=== PATIENT | female | born 1955 | race Caucasian/White ===

== ENCOUNTER → 2023-06-13 12:13 | Outpatient (REF) | payer MEDICARE, SELFPAY | LOC: WDC 12:13 | PROVIDERS: ATTENDING PHYSICIAN Family Medicine | DX: Z12.31 Encounter for screening mammogram for malignant neoplasm of breast (principal) | CPT/HCPCS: 77063; 77067 ==

== ENCOUNTER 2023-07-21 22:41 | Inpatient (IN) | payer MEDICARE, SELFPAY ==
[2023-07-21] VITALS (46 sets, daily range): BP systolic 83–170; BP diastolic 63–135
[2023-07-21] MEDS: DUONEB 3 ML INH (19:45)
[2023-07-21] MEDS: DIPRIVAN 100 IV (20:00)
[2023-07-21] MEDS: VERSED 2 MG IV (20:00)
--- NOTE | 2023-07-21 20:00 | ED.GENMED ---
History of Present Illness
<Fredi Dixon, DO - Last Filed: 07/21/23 22:42>
General
Chief Complaint: Breathing Problem
Source: patient and records
Exam Limitations: altered mental status
Time Seen by Provider: 07/21/23 19:39
Nursing documentation reviewed up to this point in time: agreed with
Travel History
Have you had any contact with someone who has COVID-19?: No
Do you have any symptoms of coronavirus? Fever > 100 degrees, chills, cough, shortness of breath, sore throat, loss of taste or smell, muscle aches, or headache?: No
History of Present Illness
History of Present Illness:
Patient presented to triage acutely short of breath
Brought back immediately initial vital signs she was tachypneic tachycardic hypoxic agitated in extremis, placed on a DuoNeb for some wheezing, apparently she was a smoker tells me she is not currently smoking
Prior records were able to briefly be reviewed she has had bladder cancer, she had vascular surgery to her radial artery she was then subsequently intubated placed on a ventilator
Other history is limited at this time
Past History
<Fredi Dixon, DO - Last Filed: 07/21/23 22:42>
Past History
ED Past Medical History: Arrthythmia (A fib), Cancer (Lung CA), HTN and Hypercholesterolemia
ED Past Surgical History: Appendectomy, Cardiac (Stent), (X 2) and Other (Bilateral upper lung lobectomy)
Social History
Tobacco: Non-smoker
Alcohol: None
Drug: Marijuana
Personal:
Living: alone
Review of Systems
<Fredi Dixon, DO - Last Filed: 07/21/23 22:42>
Review of Systems
Unable to obtain full review of systems at this time due to: due to acuity
All Other Systems: Not applicable
Respiratory: Reports cough and trouble breathing
Phy Exam
<Fredi Dixon, DO - Last Filed: 07/21/23 22:42>
Physical Exam
Physical Exam:
Physical Exam
General: 68-year-old female in severe respiratory distress tripoding sweating completing one-word sentences pulling at oxygen mask
Neck: No tongue bite
Heart: Tachycardic
Lungs: Tachypneic with wheezing diminished breath sounds
Abdomen: Nontender
Neuro: Agitated moving all extremity
Skin: no rash
Psychiatric: Unable to fully assess
Extremities: Trace lower extremity edema
Scores
<Fredi Dixon, DO - Last Filed: 07/21/23 22:42>
Heart Failure Risk
Heart Failure Risk Score: Not Applicable
Course
<Fredi Dixon, DO - Last Filed: 07/21/23 22:42>
Orders/Labs/Results
Orders:
Orders
07/21/23 19:28
EKG [Electrocardiogram (*1)] Urgent
Reason for Study: Shortness of Breath
07/21/23 19:29
EKG- Treatment ONCE
07/21/23 19:39
Ipratropium/Albuterol Sulfate [Duoneb] 3 ml .ROUTE .STK-MED ONE
07/21/23 19:43
Cardiac Monitoring- Treatment ONCE
CXR Port [CR Chest Portable - 1 View] Urgent
Comment:
Reason For Exam: sob
Reason Study Needs to be Portable: Unable to Transport
07/21/23 19:45
Ipratropium/Albuterol Sulfate [Duoneb] 3 ml INH R NOW ONE
07/21/23 19:49
Midazolam HCl [Versed] 2 mg .ROUTE .STK-MED ONE
07/21/23 19:56
Etomidate [Amidate 20 mg] 20 mg IV NOW STA
Succinylcholine Chloride [Anectine] 150 mg IV NOW STA
07/21/23 19:57
Midazolam HCl [Versed] 2 mg IV NOW STA
Propofol 1,000,000 Mcg/100 ml [Diprivan] 1,000,000 mcg in 100 ml .ROUTE .STK-MED
Propofol 1,000,000 Mcg/100 ml [Diprivan] 1,000,000 mcg in 100 ml IV NOW
Indication:: Light Sedation
Begin Infusion:: Now
Goal:: RASS 0 to -2
Maximum dose in mcg/kg/min:: 50
Initial dose based on RASS:: Yes
If RASS is:: +1 or pt hemodynamically unstable (SBP < 90mmHg), initiate at 10 mcg/kg/min
If RASS is:: +2, initiate at 20 mcg/kg/min
If RASS is:: greater than or equal to +3, initiate at 30 mcg/kg/min
Titration Instructions:: Titrate by 5-10 mcg/kg/min every 5 minutes until RASS 0 to -2 achieved.
Taper Instructions:: If RASS is at or below goal for 4 consecutive hours decrease infusion by
Taper Instructions:: 5-10 mcg/kg/min every 2 hours to off.
Over-sedation Instructions:: If CPOT 0-2 (at goal) AND RASS -3 to -5 (below goal) decrease sedative by
Over-sedation Instructions:: 50% first. If pain score remains at goal and RASS remains below goal in
Over-sedation Instructions:: 1 hour, decrease opioid infusion by 50%.
Notify provider:: immediately if patient exhibits signs/symptoms of propofol-related
Notify provider:: infusion syndrome.
Additional Instructions:: Patient MUST be mechanically ventilated and MUST receive analgesia.
07/21/23 19:58
CMP [Comprehensive Metabolic Panel] Urgent
Complete Blood Count/With Diff Urgent
Manual Differential Urgent
Pro-BNP [NT-proBNP] Urgent
Triglycerides Routine
Comment: baseline levels with propofol infusion
Troponin I Urgent
Comment: ADD ON
07/21/23 20:26
CefTRIAXone [Rocephin] 1,000 mg IV NOW STA
Dexamethasone Sod Phosphate [Decadron] 20 mg IV NOW STA
07/21/23 20:30
Lactic Acid Urgent
Blood Culture Q30M
[place] Source: Blood/Venous
Specimen Description:
Blood Culture Q30M
[place] Source: Blood/Venous
Specimen Description:
07/21/23 20:44
0.9% Sodium Chloride 1000 ml [Nss] 1,000 ml IV BOLUS
07/21/23 21:03
COVID-19 Antigen Urgent
Source: Nasal Swab
Influenza A+B Rapid Molecular Urgent
[place] Source: Nasal Swab
Specimen Description:
07/21/23 21:05
Sterile Water [Sterile Water For Injection] 10 ml .ROUTE .STK-MED ONE
07/21/23 21:11
0.9% Sodium Chloride 1000 ml [Nss] 1,000 ml IV BOLUS
Piperacillin/Tazo 3.375 Gram [Zosyn] 3.375 gram in 50 ml IV NOW
Vancomycin 1 Gram/200 ml [Vancocin] 1 gram in 200 ml IV NOW
07/21/23 21:14
NORepinephrine 4 MG/250 ML [Levophed] 4 mg in 250 ml .ROUTE .STK-MED
07/21/23 21:15
NORepinephrine 4 MG/250 ML [Levophed] 4 mg in 250 ml IV PER PROTOCOL
Initial dose in mcg/min, then titrate:: 2
Titrate to keep:: SBP > 90 mmHg
Titrate by mcg/min:: 1-2 mcg/min
Frequency of titrations (minutes):: 5
Maximum dose in ICU in mcg/min:: 30
Maximum dose in IMU in mcg/min:: 8
Maximum dose in IVU in mcg/min:: 4
Begin to taper infusion when:: Remained at goal for 4hrs
Taper by mcg/min:: 1-2 mcg/min
Frequency of taper (minutes) if patient maintains goal:: 30
Taper to off?: Yes
If infusion off & no longer maintaining goal:: Contact Provider
07/21/23 21:22
Lorazepam [Ativan] 2 mg .ROUTE .STK-MED ONE
07/21/23 21:26
Arterial Blood Gas Urgent
FentaNYL 1,000 MCG/100 ML [Sublimaze] 1,000 mcg in 100 ml .ROUTE .STK-MED
07/21/23 21:30
Lorazepam [Ativan] 2 mg IV NOW STA
07/21/23 21:36
FentaNYL 1,000 MCG/100 ML [Sublimaze] 1,000 mcg in 100 ml IV NOW
Indication:: Light Sedation
Begin Infusion:: Now
Goal:: pain score </= 1, CPOT 0-2, RASS 0 to -2
Maximum dose in mcg/hr:: 300
Continue currently infusing dose and titrate:: Yes
Titration Instructions:: Titrate every 30 minutes if patient exhibits signs of pain or discomfort
Titration Instructions:: (pain score >/= 2, CPOT>/= 3).
Titration Instructions:: Administer bolus dose and increase infusion by 25 mcg/hr.
Taper Instructions:: If pain score at goal for 4 consecutive hours (pain score </= 1, CPOT 0-2)
Taper Instructions:: decrease infusion by 50 mcg/hr every 2 hours.
Taper Instructions:: When dose </= 50 mcg/hr may turn infusion off and consider PRN
Taper Instructions:: intermittent bolus doses only.
Over-sedation Instructions:: If CPOT 0-2 (goal) and RASS -3 to -5 (below goal) decrease sedative by 50%
Over-sedation Instructions:: first. If pain score remains at goal and RASS remains below goal in 1 hour,
Over-sedation Instructions:: decrease opioid infusion by 50%.
Notify provider:: immediately if pt exhibits: chest wall rigidity, hemodynamic instability,
Notify provider:: agitation/pain despite maximum dosing, pain when RASS -3 to -5 (below goal)
Additional Instructions:: Patient MUST be mechanically ventilated.
07/21/23 22:00
Admit/Transfer Patient As Directed
Co-Sign Provider:
Level of Care: Inpatient admission
Assign to:: ICU
Physician / Group: Toan
Diagnosis: Resp Failure
Reason for Hospitalization: Resp Failure
Expected length of stay greater than two midnights?: Yes
ELOS- Estimated Length of Stay in days: 5
I certify the patient meets the requirements for IP care: Yes
07/21/23 22:07
Code Status As Directed
Resuscitation Status: Full Code
07/21/23 22:09
Pollard Catheter [Catheter- Indwelling] As Directed
Reason for insertion: I&O's Critical Care
Assess insertion reason daily.Remove if no longer applicable: Yes
07/21/23 22:14
Portable Chest Xray [CR Chest Portable - 1 View] Urgent
Comment:
Reason For Exam: central line placement
Reason Study Needs to be Portable: Unable to Transport
07/21/23 22:16
Add On- LAB Urgent
Tests Added?: troponin
07/21/23 22:24
PTT Urgent
Procalcitonin Urgent
PCT Algorithmm Indication: Respiratory
Abnormal Lab Results
07/21/23 07/21/23 07/21/23
19:58 20:30 21:26
WBC 29.2 H 10^3/uL
(4.8-10.8)
RBC 6.08 H 10^6/uL
(4.20-5.40)
MCV 74.0 L fL
(81.0-99.0)
MCH 21.7 L pg
(27.0-31.0)
MCHC 29.3 L g/dL
(33.0-37.0)
RDW 28.9 H %
(11.5-14.5)
Plt Count 755 H 10^3/uL
(130-400)
Abs Neuts (Manual) 18.1 H 10^3/uL
(1.4-6.5)
Band Neutrophils 6 H %
(0-3)
pH 7.30 L
(7.35-7.45)
pCO2 41 H mmHg
(32-35)
pO2 209 H mmHg
(83-108)
HCO3 20.2 L mmol/L
(21-28)
ABG O2 Sat (Measured) 99.8 H %
(94-98)
Carbon Dioxide 21 L mmol/L
(22-30)
BUN 21 H mg/dl
(7-17)
Creatinine 1.4 H mg/dL
(0.6-1.0)
Glucose 140 H mg/dl
(70-99)
Lactic Acid 5.6 H* mmol/L
(0.7-2.0)
AST 54 H U/L
(14-36)
Albumin 5.2 H g/dl
(3.5-5.0)
Triglycerides 288 H mg/dl
(10-149)
07/21/23 19:58
07/21/23 19:58
Vital Signs
Initial and Last Documented VS:
Initial Vital Signs
Pulse Resp
146 37
07/21/23 19:44 07/21/23 19:44
Last Documented Vital Signs
Temp Pulse Resp BP Pulse Ox
98.2 F 86 20 97/72 100
07/21/23 22:08 07/21/23 22:00 07/21/23 22:00 07/21/23 22:00 07/21/23 22:00
<Rtiesh Palacio PA-C - Last Filed: 07/21/23 22:17>
Orders/Labs/Results
Orders:
Orders
07/21/23 19:28
EKG [Electrocardiogram (*1)] Urgent
Reason for Study: Shortness of Breath
07/21/23 19:29
EKG- Treatment ONCE
07/21/23 19:39
Ipratropium/Albuterol Sulfate [Duoneb] 3 ml .ROUTE .STK-MED ONE
07/21/23 19:43
Cardiac Monitoring- Treatment ONCE
CXR Port [CR Chest Portable - 1 View] Urgent
Comment:
Reason For Exam: sob
Reason Study Needs to be Portable: Unable to Transport
07/21/23 19:45
Ipratropium/Albuterol Sulfate [Duoneb] 3 ml INH R NOW ONE
07/21/23 19:49
Midazolam HCl [Versed] 2 mg .ROUTE .STK-MED ONE
07/21/23 19:56
Etomidate [Amidate 20 mg] 20 mg IV NOW STA
Succinylcholine Chloride [Anectine] 150 mg IV NOW STA
07/21/23 19:57
Midazolam HCl [Versed] 2 mg IV NOW STA
Propofol 1,000,000 Mcg/100 ml [Diprivan] 1,000,000 mcg in 100 ml .ROUTE .STK-MED
Propofol 1,000,000 Mcg/100 ml [Diprivan] 1,000,000 mcg in 100 ml IV NOW
Indication:: Light Sedation
Begin Infusion:: Now
Goal:: RASS 0 to -2
Maximum dose in mcg/kg/min:: 50
Initial dose based on RASS:: Yes
If RASS is:: +1 or pt hemodynamically unstable (SBP < 90mmHg), initiate at 10 mcg/kg/min
If RASS is:: +2, initiate at 20 mcg/kg/min
If RASS is:: greater than or equal to +3, initiate at 30 mcg/kg/min
Titration Instructions:: Titrate by 5-10 mcg/kg/min every 5 minutes until RASS 0 to -2 achieved.
Taper Instructions:: If RASS is at or below goal for 4 consecutive hours decrease infusion by
Taper Instructions:: 5-10 mcg/kg/min every 2 hours to off.
Over-sedation Instructions:: If CPOT 0-2 (at goal) AND RASS -3 to -5 (below goal) decrease sedative by
Over-sedation Instructions:: 50% first. If pain score remains at goal and RASS remains below goal in
Over-sedation Instructions:: 1 hour, decrease opioid infusion by 50%.
Notify provider:: immediately if patient exhibits signs/symptoms of propofol-related
Notify provider:: infusion syndrome.
Additional Instructions:: Patient MUST be mechanically ventilated and MUST receive analgesia.
07/21/23 19:58
CMP [Comprehensive Metabolic Panel] Urgent
Complete Blood Count/With Diff Urgent
Manual Differential Urgent
Pro-BNP [NT-proBNP] Urgent
Triglycerides Routine
Comment: baseline levels with propofol infusion
Troponin I Urgent
Comment: ADD ON
07/21/23 20:26
CefTRIAXone [Rocephin] 1,000 mg IV NOW STA
Dexamethasone Sod Phosphate [Decadron] 20 mg IV NOW STA
07/21/23 20:30
Lactic Acid Urgent
Blood Culture Q30M
[place] Source: Blood/Venous
Specimen Description:
Blood Culture Q30M
[place] Source: Blood/Venous
Specimen Description:
07/21/23 20:44
0.9% Sodium Chloride 1000 ml [Nss] 1,000 ml IV BOLUS
07/21/23 21:03
COVID-19 Antigen Urgent
Source: Nasal Swab
Influenza A+B Rapid Molecular Urgent
[place] Source: Nasal Swab
Specimen Description:
07/21/23 21:05
Sterile Water [Sterile Water For Injection] 10 ml .ROUTE .STK-MED ONE
07/21/23 21:11
0.9% Sodium Chloride 1000 ml [Nss] 1,000 ml IV BOLUS
Piperacillin/Tazo 3.375 Gram [Zosyn] 3.375 gram in 50 ml IV NOW
Vancomycin 1 Gram/200 ml [Vancocin] 1 gram in 200 ml IV NOW
07/21/23 21:14
NORepinephrine 4 MG/250 ML [Levophed] 4 mg in 250 ml .ROUTE .STK-MED
07/21/23 21:15
NORepinephrine 4 MG/250 ML [Levophed] 4 mg in 250 ml IV PER PROTOCOL
Initial dose in mcg/min, then titrate:: 2
Titrate to keep:: SBP > 90 mmHg
Titrate by mcg/min:: 1-2 mcg/min
Frequency of titrations (minutes):: 5
Maximum dose in ICU in mcg/min:: 30
Maximum dose in IMU in mcg/min:: 8
Maximum dose in IVU in mcg/min:: 4
Begin to taper infusion when:: Remained at goal for 4hrs
Taper by mcg/min:: 1-2 mcg/min
Frequency of taper (minutes) if patient maintains goal:: 30
Taper to off?: Yes
If infusion off & no longer maintaining goal:: Contact Provider
07/21/23 21:22
Lorazepam [Ativan] 2 mg .ROUTE .STK-MED ONE
07/21/23 21:26
Arterial Blood Gas Urgent
FentaNYL 1,000 MCG/100 ML [Sublimaze] 1,000 mcg in 100 ml .ROUTE .STK-MED
07/21/23 21:30
Lorazepam [Ativan] 2 mg IV NOW STA
07/21/23 21:36
FentaNYL 1,000 MCG/100 ML [Sublimaze] 1,000 mcg in 100 ml IV NOW
Indication:: Light Sedation
Begin Infusion:: Now
Goal:: pain score </= 1, CPOT 0-2, RASS 0 to -2
Maximum dose in mcg/hr:: 300
Continue currently infusing dose and titrate:: Yes
Titration Instructions:: Titrate every 30 minutes if patient exhibits signs of pain or discomfort
Titration Instructions:: (pain score >/= 2, CPOT>/= 3).
Titration Instructions:: Administer bolus dose and increase infusion by 25 mcg/hr.
Taper Instructions:: If pain score at goal for 4 consecutive hours (pain score </= 1, CPOT 0-2)
Taper Instructions:: decrease infusion by 50 mcg/hr every 2 hours.
Taper Instructions:: When dose </= 50 mcg/hr may turn infusion off and consider PRN
Taper Instructions:: intermittent bolus doses only.
Over-sedation Instructions:: If CPOT 0-2 (goal) and RASS -3 to -5 (below goal) decrease sedative by 50%
Over-sedation Instructions:: first. If pain score remains at goal and RASS remains below goal in 1 hour,
Over-sedation Instructions:: decrease opioid infusion by 50%.
Notify provider:: immediately if pt exhibits: chest wall rigidity, hemodynamic instability,
Notify provider:: agitation/pain despite maximum dosing, pain when RASS -3 to -5 (below goal)
Additional Instructions:: Patient MUST be mechanically ventilated.
07/21/23 22:00
Admit/Transfer Patient As Directed
Co-Sign Provider:
Level of Care: Inpatient admission
Assign to:: ICU
Physician / Group: Toan
Diagnosis: Resp Failure
Reason for Hospitalization: Resp Failure
Expected length of stay greater than two midnights?: Yes
ELOS- Estimated Length of Stay in days: 5
I certify the patient meets the requirements for IP care: Yes
07/21/23 22:07
Code Status As Directed
Resuscitation Status: Full Code
07/21/23 22:09
Pollard Catheter [Catheter- Indwelling] As Directed
Reason for insertion: I&O's Critical Care
Assess insertion reason daily.Remove if no longer applicable: Yes
07/21/23 22:14
Portable Chest Xray [CR Chest Portable - 1 View] Urgent
Comment:
Reason For Exam: central line placement
Reason Study Needs to be Portable: Unable to Transport
07/21/23 22:16
Add On- LAB Urgent
Tests Added?: troponin
07/21/23 22:24
PTT Urgent
Procalcitonin Urgent
PCT Algorithmm Indication: Respiratory
Abnormal Lab Results
07/21/23 07/21/23 07/21/23
19:58 20:30 21:26
WBC 29.2 H 10^3/uL
(4.8-10.8)
RBC 6.08 H 10^6/uL
(4.20-5.40)
MCV 74.0 L fL
(81.0-99.0)
MCH 21.7 L pg
(27.0-31.0)
MCHC 29.3 L g/dL
(33.0-37.0)
RDW 28.9 H %
(11.5-14.5)
Plt Count 755 H 10^3/uL
(130-400)
Abs Neuts (Manual) 18.1 H 10^3/uL
(1.4-6.5)
Band Neutrophils 6 H %
(0-3)
pH 7.30 L
(7.35-7.45)
pCO2 41 H mmHg
(32-35)
pO2 209 H mmHg
(83-108)
HCO3 20.2 L mmol/L
(21-28)
ABG O2 Sat (Measured) 99.8 H %
(94-98)
Carbon Dioxide 21 L mmol/L
(22-30)
BUN 21 H mg/dl
(7-17)
Creatinine 1.4 H mg/dL
(0.6-1.0)
Glucose 140 H mg/dl
(70-99)
Lactic Acid 5.6 H* mmol/L
(0.7-2.0)
AST 54 H U/L
(14-36)
Albumin 5.2 H g/dl
(3.5-5.0)
Triglycerides 288 H mg/dl
(10-149)
07/21/23 19:58
07/21/23 19:58
Vital Signs
Initial and Last Documented VS:
Initial Vital Signs
Pulse Resp
146 37
07/21/23 19:44 07/21/23 19:44
Last Documented Vital Signs
Temp Pulse Resp BP Pulse Ox
98.2 F 86 20 97/72 100
07/21/23 22:08 07/21/23 22:00 07/21/23 22:00 07/21/23 22:00 07/21/23 22:00
Procedures
<Fredi Dixon DO - Last Filed: 07/21/23 22:42>
Intubations
Procedure completed by: asia Palacio
Method of Intubation: glidescope
Tube size (cm): 8.0
Placement confirmed by: auscutation, CXR and capnography
Breath sounds after intubation: equal
Intubation complications: no complications
<Ritesh Palacio PA-C - Last Filed: 07/21/23 22:17>
Central Line
Right Internal jugular:
Indication for procedure:: Hypotension/shock
Procedure completed by: Ritesh Palacio PA-C
Consent form signed: No
If no, reason: Emergency procedure
Anesthesia: 1% Lidocaine
Central line lumen: triple
Number of attempts: 1
Central line complications: none
Sterile dressing applied?: Yes
X-ray: shows good placement
<Fredi Dixon, DO - Last Filed: 07/21/23 22:42>
MDM/Problems Addressed
Differential Diagnosis Includes:
Presumed hypercarbic respiratory failure pneumonia heart failure COPD pneumothorax aspiration
MDM/Problems Addressed:
Shortness of breath
Chronic conditions affecting care: CAD, Arrhythmia, Kidney disease and Cancer
Acute Exacerbation and/or Progression of Chronic Illness: CAD and Cancer
<Fredi Dixon, DO - Last Filed: 07/21/23 22:42>
*Radiology
Radiology exam reviewed: preliminary read by ED provider and radiology read reviewed
*Pulse Oximetry
Patient hypoxic: yes
*EKG
Interpreted by ED Provider?: Yes
Interpretation: abnormal
Comparison EKG: no comparison EKG present
Heart Rate: 120
Rate: tachycardiac
Rhythm: sinus
Ischemia: non-specific ST changes
*Events Specialist Interpretation
Rate: tachycardiac
Interpretation: abnormal
Heart Rate: 130
Rhythm: sinus
*Critical Care Note
Total Time (30-74mins, 75-104mins- exclusive of procedures): 40
Data Reviewed
Review of Other/Old Records Reveals: Labs and Progress Notes
<Fredi Dixon, DO - Last Filed: 07/21/23 22:42>
Update Note
Update Note:
Update patient intubated soon after arrival, stabilizing ventilator will check ABG, chest x-ray EKG and labs
CRITICAL CARE STATEMENT: A total of 40 minutes of critical care time was provided for this patient. This includes management of unstable vital signs, evaluation of the patient at bedside, reviewing the patient's pertinent medical records discussion
with EMS providers and patient's family in addition to discussion with consultants, review of old EKGs and review of pertinent medical records. This time with separate from time utilized to perform the aforementioned documented procedures
8:45 PM labs noted significant white count kidney numbers are up a bit, chest x-ray noted report noted blood cultures have been sent antibiotics have been ordered proBNP noted lower than baseline blood pressure softer though she is on sedation will
bolus with saline
Hospitalist notified of admission
ED Attending Note
<Fredi Dixon DO - Last Filed: 07/21/23 22:42>
-
Portions of this chart may have been created with voice recognition software.� Occasional wrong word or��sound alike� substitutions may have occurred due to the inherent limitations of voice recognition software.
Discharge Plan
Departure
Patient Disposition: Admit
Date of Disposition: 07/21/23
Time of Disposition: 20:45
Admit to: ICU
Presentation/result/management discussed w/ accepting MD/DO: Hospitalist
Patient with high blood pressure during this ER visit?: Yes
Condition: Serious
Discharge Problem:
Acute hypoxic respiratory failure
Prescriptions:
No Action
atorvastatin [Lipitor] 80 mg Tablet
80 mg PO HS
tolterodine 4 mg Capsule,Extended Release 24hr
4 mg PO QPM
pantoprazole [Protonix] 40 mg Tablet,Delayed Release (Dr/Ec)
40 mg PO DAILY
fluoxetine [Prozac] 20 mg Capsule
20 mg PO HS
ezetimibe [Zetia] 10 mg Tablet
10 mg PO QPM
multivitamin with folic acid [Tab-A-Kp] 400 mcg Tablet
1 tab PO DAILY Qty: 0 0RF
Probiotic 3 billion cell Capsule
3 mmu cells PO DAILY
metoprolol succinate 25 mg Tablet Extended Release 24 Hr
25 mg PO BID Qty: 60 0RF
Eliquis 5 mg Tablet
5 mg PO BID 30 Days Qty: 60 0RF
clopidogrel 75 mg Tablet
75 mg PO DAILY Qty: 90 3RF
furosemide 20 mg Tablet
20 mg PO DAILY Qty: 30 0RF
lisinopril 5 mg tablet
5 mg PO DAILY
Hold Instructions: Resume on 12/31/22.
Jardiance 10 mg tablet
10 mg PO DAILY
aspirin 81 mg Tablet,Delayed Release (Dr/Ec)
81 mg PO DAILY
Referrals:
Carlita Kwon MD [Family Provider] -
Interventions
Interventions:
*Risk Screen - Suicide Last Done: 07/21/23 19:46
*General Assessment Last Done: 07/21/23 19:46
*Neglect/Abuse Screening Last Done: 07/21/23 19:46
ED- Fall Risk Assessment Last Done: 07/21/23 19:45
*ED COVID-19 Vaccine History Last Done: 07/21/23 19:46
ED- Cardiac Assessment Last Done: 07/21/23 19:45
ED- Pulmonary Assessment Last Done: 07/21/23 19:45
[2023-07-21] MEDS: ANECTINE 150 MG IV (20:03)
[2023-07-21] MEDS: AMIDATE 20 MG IV (20:04)
--- NOTE | 2023-07-21 20:08 | EDRN ---
Pt walked into the ED c/o shortness of breath, placed into a wheelchair, brought directly into EKG room, Pt states she just found out that her friend who is here at the hospital may have and this caused her to become short of breath. Pt
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 Attempted to get an EKG and was unable to sit still, tachypenic in the 40s and tripoding, pt then had an episode of vomiting. EKG aborted and pt brought back to Room 5 to be triaged and treated.
[2023-07-21 20:10] LABS: Hemoglobin 13.2 g/dL (12.0-16.0); Mean Corp Hgb Conc. 29.3 g/dL (33.0-37.0); Mean Corpuscular Hgb 21.7 pg (27.0-31.0); Platelet Count 755 10^3/uL (130-400); Red Blood Cell Count 6.08 10^6/uL (4.20-5.40); Red Cell Dist. Width 28.9 % (11.5-14.5); White Blood Cell Count 29.2 10^3/uL (4.8-10.8)
[2023-07-21 20:30] LABS: Absolute Neutrophils -Man Diff 18.1 10^3/uL (1.4-6.5); Band Neutrophils 6 % (0-3); Eosinophils 1 % (0-6); Lymphocytes 27 % (20-51); Metamyelocytes 3 % (-); Monocytes 6 % (2-9); Myelocytes 1 % (-); NT-proBNP 3110 pg/ml; Segmented Neutrophils 56 % (42-75)
[2023-07-21 20:31] LABS: Anisocytosis Slight; Normal RBC Morphology No; Poikilocytosis Moderate
[2023-07-21 20:32] LABS: Ovalocytes 1+; Tear Drop Red Blood Cells 1+
[2023-07-21 20:33] LABS: Burr Cells Slight; Polychromasia Slight; Total Cells Counted 100
[2023-07-21 20:34] LABS: Platelets Checked Yes
[2023-07-21 20:36] LABS: ALT (SGPT) 21 U/L (0-35); AST (SGOT) 54 U/L (14-36); Albumin 5.2 g/dl (3.5-5.0); Alkaline Phosphatase 120 U/L (38-126); Blood Urea Nitrogen 21 mg/dl (7-17); Calcium 9.6 mg/dl (8.4-10.2); Carbon Dioxide 21 mmol/L (22-30); Chloride 102 mmol/L (98-107); Glucose 140 mg/dl (70-99); Potassium 5.1 mmol/L (3.5-5.1); Sodium 138 mmol/L (135-145); Total Protein 8.2 g/dl (6.3-8.2); Triglycerides 288 mg/dl (10-149); eGFR 40.73
[2023-07-21 21:03] LABS: Lactic Acid 5.6 mmol/L (0.7-2.0)
[2023-07-21] MEDS: NSS 1000 IV ×2 (21:06→21:35)
[2023-07-21] MEDS: DECADRON 20 MG IV (21:06)
[2023-07-21] MEDS: ROCEPHIN 1000 MG IV (21:07)
[2023-07-21] MEDS: ZOSYN 50 IV (21:17)
[2023-07-21 21:29] LABS: COVID-19 Antigen Negative (Negative)
--- NOTE | 2023-07-21 21:30 | EDRN ---
Spoke with Dr. Dixon patient is becoming more and more agitated and fighting the vent, maxed out on the propofol, order for Ativan and Fentynl to be started
[2023-07-21] MEDS: LEVOPHED 250 IV (21:35)
[2023-07-21] MEDS: SUBLIMAZE 100 IV (21:37)
[2023-07-21 21:38] LABS: B.E. -5.9 mmol/L; HCO3 20.2 mmol/L (21-28); O2 Saturation % 99.8 % (94-98); PCO2 41 mmHg (32-35); PO2 209 mmHg (83-108)
--- NOTE | 2023-07-21 21:45 | EDRN ---
Patient had large bowl movement soft formed, patient cleaned up and clean sheets and gown placed on patient.
--- NOTE | 2023-07-21 22:03 | EDRN ---
Patients blood pressure is starting to trend down and needing to increase [id number] for sedation, Dr. Dixon aware and medications ordered
[2023-07-21] MEDS: VANCOCIN 200 IV (22:04)
[2023-07-21] MEDS: ATIVAN 2 MG IV (22:05)
--- NOTE | 2023-07-21 22:14 | EDRN ---
Central line completed at bedside, Xray called to confirm placement
--- NOTE | 2023-07-21 22:15 | HPS.HSE ---
Family Physician
-
Family Physician: Carlita Kwon
Chief Complaint
-
SOB
History of Present Illness
Patient is a 68y F with PMH significant for lung cancer, ASCVD, A-Fib and bladder cancer who presents to ED in respiratory distress. Patient was reportedly here at the hospital to visit a friend who had unexpectedly . She presented
to ED in triage in respiratory distress and was urgently intubated in the ED. At the time of my examination, patient is sedated on the ventilator and unable to contribute to this history. ED staff was able to obtain only minimal history from the
patient prior to intubation given her severe dyspnea and acuity.
Spoke with her daughter via phone (Gabo Jain [phone]). She states that patient had been feeling fairly well of late. She had a cough about one month ago, but this resolved quite some time ago. No recent respiratory complaints or other
acute issues.
Daughter did note that patient was quite distressed this afternoon regarding her friend's illness / hospitalization.
She is not aware of any recent medication changes.
Medical History
Past Medical History
Past Medical History: Reports Other
Additional Past Medical History:
Bilateral Lung Cancer s/p Resection (No adjuvant therapies) 11y ago and 7y ago
Hypertension
ASCVD (CAD and Carotid Disease)
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
Bladder Cancer s/p TURBT (07/12/22)
Paroxysmal Atrial Fibrillation
Chronic HFrEF
CKD III
Severe Mitral Regurgitation
Anxiety / Depression
Past Surgical History: Reports Other
Additional Past Surgical History:
PTCA with Stents
Right Femur ORIF
Appendectomy
x 2
TURBT
Left Upper Lobectomy
Right Upper Lobectomy
Right Radial Pseudoaneurysm Repair
Cochlear Implant
Social History
Tobacco: Former Smoker (Quit smoking cigarettes 20 years ago. Smokes occasional marijuana.)
Alcohol: None
Drug: Marijuana (Occasional marijuana use. Recently quit this per daughter (which is likely what she was referring to when she told ED she quit 'smoking'))
Family History
Family History: Not pertinent
Allergies / Home Medications
Allergies reflects when Allergies were last updated in [employer].
Home Medications with original date entered in [employer]
Allergy/Medication List:
Unable to confirm medications at present. Daughter does not have an updated list and patient is sedated / unresponsive on ventilator.
If medication reconciliation has not been performed, why?: Medication List N/A (Unable to obtain as noted above.)
Review of Systems
-
Unable to obtain full review of systems at this time due to: Patient Intubation
Physical Exam
Vital Signs
Vital Signs
Temp Pulse Resp BP Pulse Ox
98.2 F 86 20 97/72 100
07/21/23 22:08 07/21/23 22:00 07/21/23 22:00 07/21/23 22:00 07/21/23 22:00
Physical Exam
General: Other (68y F currently sedated on ventilator. Moves all extremities and withdraws from noxious stimuli. )
HEENT: Other (No JVD. MMM. ETT and OGT in place.)
Respiratory: Other (few coarse breath sounds at the bases - otherwise clear. No wheezing or rales.)
Cardiac: S1/S2, Regular Rhythm (with ectopy.) and Murmur (II/ JESSY)
GI: Soft, Non Tender, Non Distended and Normal Bowel Sounds
Musculoskeletal: No Clubbing, No Cyanosis and No Edema
Neuro: Sedated
Laboratory Results
-
07/21/23 19:58
07/21/23 19:58
Laboratory Results
pH 7.30 (7.35-7.45) L 07/21/23 21:26
pCO2 41 mmHg (32-35) H 07/21/23 21:26
pO2 209 mmHg (83-108) H 07/21/23 21:26
HCO3 20.2 mmol/L (21-28) L 07/21/23 21:26
Lactic Acid 5.6 mmol/L (0.7-2.0) H* 07/21/23 20:30
Total Bilirubin 1.0 mg/dl (0.2-1.3) 07/21/23 19:58
AST 54 U/L (14-36) H 07/21/23 19:58
ALT 21 U/L (0-35) 07/21/23 19:58
Alkaline Phosphatase 120 U/L (38-126) 07/21/23 19:58
Impression/Plan
-
A/P: Patient is a 68y F with PMH significant for ASCVD, lung cancer s/p bilateral upper lobectomies, A-Fib and P vera who presents to ED in respiratory distress.
Acute Hypoxemic Respiratory Failure
- Admit to ICU for further evaluation and treatment.
- Continue ventilatory support, sedation and other supportive measures.
- Investigate potential etiologies of her sudden decompensation.
- Possibility of PE / VTE seems very low in patient on triple therapy with ASA, Plavix and Eliquis.
- Protective Services Officer evaluation.
Bilateral Lower Lobe Pneumonia
Septic Shock secondary to the above
Lactic Acidosis secondary to the above
- Patient presents with leukocytosis, tachycardia and tachypnea and CXR evidence of patchy lower lobe opacities c/w pneumonia.
- Evidence of life-threatening organ dysfunction in the form of acute hypoxemic respiratory failure as noted above.
- Family denies any recent respiratory symptoms.
- COVID / influenza negative in the ED.
- Cell count abnormalities may be combination of known MDS / P vera and acute stress.
- Will continue to cover with broad spectrum abx for now pending further evaluation.
- Follow up culture data and adjust regimen as needed.
- Continue supportive care including IVFs, pressor support, etc.
- Continue to investigate other possible causes of respiratory failure as noted below.
ASCVD
Chronic HFrEF
Paroxysmal Atrial Fibrillation
- Check / follow serial troponin to rule out new ischemia.
- ? Takotsubo's scenario with significant social stressors / friend's recent passing / etc.
- EKG done in the ED shows non-specific lateral T wave changes.
- Check / update Echo - last in 04/04 with EF = 45% and moderate MR - improved from prior.
- Hold diuretics for now given hypotension / apparent sepsis.
- Patient has no edema at all on exam and does not appear overloaded.
- BNP is lowest in quite some time for her.
- Consider Cardiology evaluation if abnormal troponin, echo, etc.
- Continue Eliquis for stroke risk reduction.
- Continue DAPT (most recent stent was October 2022).
Polycythemia vera
- Increased WBC and platelets which seem very reactive in nature.
- Follow for changes / improvement.
- Patient is not on any specific medication - beyond antiplatelets - according to her daughter.
- Follow for changes in cell counts.
- Continue DAPT.
- Consider Hematology evaluation if cell counts increase or do not improve.
Benign Hypertension
- BP markedly elevated on arrival and then became hypotensive following sedation / intubation.
- IVF boluses administered. Now on Levophed for BP support.
- TLC placed in the ED.
- Hold OP BP medications pending improvement in sepsis / shock.
GERD / Husain's Esophagus
- Stable. Continue daily PPI.
History of Bladder Cancer
- Stable. Prior TURBT and BCG therapy.
- Last cysto was 02/2023 and biopsy was normal at that time.
History of Lung Cancer
- s/p bilateral upper lobectomies - most recent was 7 years ago.
- No recent symptoms or issues in this regard.
- CXR without evidence of mass, etc.
Anxiety / Depression
- Very anxious - especially today - according to her daughter.
- Hold OP meds for now.
- Currently on sedation protocol which should manage her acute anxieties.
DVT Prophylaxis: On Eliquis
Code Status: Full
--- NOTE | 2023-07-21 22:25 | EDRN ---
Central line placement confirmed by xray and ready to use
--- NOTE | 2023-07-21 22:39 | EDRN ---
Patients temp on arrival was low grade fever, temperature is decreasing warm blankets applied, temp. 36.3 core temp.
[2023-07-21 22:45] LABS: APTT 40.1 Sec (23.4-35.0)
--- NOTE | 2023-07-21 22:53 | EDRN ---
Dr. Joya at bedside re-assessing patient did inform him that patients temp has decreased.
[2023-07-21 22:59] LABS: Procalcitonin 1.02 ng/ml (0.0-0.25)
[2023-07-21 23:10] LABS: Troponin I < 0.012 ng/ml
[2023-07-22] VITALS (19 sets, daily range): BP systolic 75–132; BP diastolic 58–105; BMI 22.8
--- NOTE | 2023-07-22 00:48 | W.PN.SEPSIS ---
Sepsis
Vital Signs
Temp Pulse Resp BP Pulse Ox
97.6 F 89 18 94/71 99
07/21/23 23:35 07/21/23 23:47 07/21/23 23:47 07/21/23 23:40 07/21/23 23:58
Physical Exam
Physical Exam:
A focused exam was performed after fluid resuscitation.
Capillary Refill
Bilateral Upper Extremity:
Sarbjit Time: Less than 3 sec
Bilateral Lower Extremity:
Sarbjit Time: Less than 3 sec
Pulse Evaluation
Bilateral Radial:
Pulse Evaluation: Present
Bilateral Dorsalis Pedis:
Pulse Evaluation: Present
--- NOTE | 2023-07-22 00:49 | W.PN.UPDATE ---
Update Note
Progress Note Update
Operation/Procedure: left radial arterial line placement
Consent for operation or procedure: Emergent need due to patient condition - need for invasive monitoring per protocol
Indications: Hemodynamic monitoring
After properly positioning the patient's wrist in the standard fashion, the site was prepped and draped in a sterile fashion. Next, the radial artery was entered, noting bright red, pulsatile flow. A guidewire was easily inserted, the needle
removed, and the catheter was then placed using the Seldinger technique. The guidewire was removed, with good flow present. The catheter was then connected to the transducer with a good waveform noted. An occlusive dressing was placed after
properly cleaning and prepping the site.
Complications: The patient tolerated the procedure well and no complications were noted.
Estimated Blood Loss: minimal
Plan: Arterial line to remain in place for hemodynamic monitoring.
--- NOTE | 2023-07-22 01:00 | PTCARENOTE ---
Pt arrived to ICU room 3367 from ER at approx 2350. Pt intubated, #8 ETT, 23 at [facility] (center). AC 18/400/40/5. Upon arrival to unit pt on Propofol at 40mcg/kg/min, Fentanyl at 50mcg/hr, and Levophed at 2mcg/min, all running through RIJ TLC. SR 70s on
monitor, SpO2 98-100%. Left radial arterial line placed at bedside by Donavon Sanders, ICU SCARF GLUER. Based on arterial BP, Levophed titrated to 4mcg/min. Physical assessment completed, see nursing shift assessment flowsheet for full details.
[2023-07-22 01:03] LABS: INR 1.27; PT 15.7 Sec (11.4-14.6)
[2023-07-22 01:04] LABS: APTT 42.1 Sec (23.4-35.0); Lactic Acid 0.8 mmol/L (0.7-2.0)
[2023-07-22 01:05] LABS: Triglycerides 150 mg/dl (10-149)
[2023-07-22 01:14] LABS: Urine Albumin Negative (Neg - Trace); Urine Bilirubin Negative (Negative); Urine Character Clear (Clear); Urine Color Yellow; Urine Glucose 3+ (Negative); Urine Ketone Negative (Negative); Urine Leukocyte Negative (Negative); Urine Nitrite Negative (Negative); Urine Occult Blood Negative (Negative); Urine Urobilinogen Negative (Neg - 1+)
[2023-07-22 01:23] LABS: Troponin I 0.348 ng/ml
[2023-07-22] MEDS: DIPRIVAN 100 IV (01:40)
[2023-07-22] MEDS: ZOSYN 50 IV ×4 (03:42→20:06)
--- NOTE | 2023-07-22 04:36 | PTCARENOTE ---
Pt belongings: clothing, shoes, jacket; jewelry: silver colored ring with stars (on right hand), 1 earring in right ear (gold colored stud with clear stone), pair of crescent bauman earrings in specimen cup in pt's purse. Pt has hearing aids and
glasses with her, both are in her purse (hearing aids placed in a specimen cup with a pt label), cell phone and wallet in purse as well.
--- NOTE | 2023-07-22 04:45 | PTCARENOTE ---
Assessment mostly unchanged. Lungs are less rhonchorous than earlier but still slightly coarse sounding. Remains on Fentanyl at 50mcg/hr, titrating Propofol down for RASS as pt has been minimally responsive (will withdrawal to pain), now at
20mcg/kg/min. Remains on Levophed at 4mcg/min at this time. SpO2 98% on same vent settings, SR 70s on monitor.
[2023-07-22 05:09] LABS: HCO3 20.8 mmol/L (21-28); O2 Saturation % 99.4 % (94-98); PCO2 36 mmHg (32-35); PO2 121 mmHg (83-108); pH 7.37 (7.35-7.45)
[2023-07-22 05:38] LABS: Hemoglobin 10.1 g/dL (12.0-16.0); Mean Corp Hgb Conc. 31.6 g/dL (33.0-37.0); Mean Corpuscular Hgb 22.1 pg (27.0-31.0); Mean Corpuscular Volume 70.2 fL (81.0-99.0); Platelet Count 531 10^3/uL (130-400); Red Blood Cell Count 4.56 10^6/uL (4.20-5.40); Red Cell Dist. Width 28.1 % (11.5-14.5); White Blood Cell Count 25.7 10^3/uL (4.8-10.8)
[2023-07-22 05:47] LABS: Lactic Acid 1.1 mmol/L (0.7-2.0)
[2023-07-22 06:04] LABS: ALT (SGPT) 25 U/L (0-35); AST (SGOT) 45 U/L (14-36); Albumin 3.2 g/dl (3.5-5.0); Alkaline Phosphatase 107 U/L (38-126); Blood Urea Nitrogen 20 mg/dl (7-17); Calcium 7.9 mg/dl (8.4-10.2); Carbon Dioxide 21 mmol/L (22-30); Chloride 105 mmol/L (98-107); Estimated Creatinine Clearance 43 ml/min; Glucose 178 mg/dl (70-99); Magnesium 2.1 mg/dl (1.6-2.3); Phosphorus 3.9 mg/dl (2.5-4.5); Potassium 4.2 mmol/L (3.5-5.1); Sodium 136 mmol/L (135-145); Total Bilirubin 0.6 mg/dl (0.2-1.3); Total Protein 5.6 g/dl (6.3-8.2); eGFR 54.39
--- NOTE | 2023-07-22 06:13 | PTCARENOTE ---
At this time pt still RASS -4 and CPOT 0, despite titrating down both the Propofol and Fentanyl. Pt will withdrawal to pain, and opened eyes ever so slightly when we had to pull her forward to put the XRay board behind her. Propofol and Fentanyl are
now currently turned off to see if/when patient wakes up.
--- NOTE | 2023-07-22 06:39 | PTCARENOTE ---
Pt now opening eyes spontaneously or to name, able to follow commands, able to nod/head yes or no appropriately. Pt with eyes squeezed shut at times, Fentanyl turned back on at 25mcg/hr but Propofol remains off at this time.
[2023-07-22 06:49] LABS: Troponin I 0.429 ng/ml
--- NOTE | 2023-07-22 08:00 | PTCARENOTE ---
Assumed care of patient. Pt rec'd sedated on ventilator. RASS -1. Responds to verbal stimuli. Opens eyes, attempts to mouth words, and follows simple commands. NEAL's...restrained. NSR on monitor. Weak PP. No edema. #8ETT 23cm left side of
mouth. Current vent settings: 18/400/+5/40%...sats 99%. Lungs diminished and coarse throughout. Occasional NPC. OG -> LIWS...scant mittal drainage noted. Placement confirmed. Temp sensing cartwright draining yellow urine. Skin WNL. RIJ TLC w/
levophed and fentanyl gtts infusing...see interventions. Left radial svetlana...flushed and zeroed...correlates w/ manual BP cuff. Multiple peripheral INT's. VS documented. Will discuss plan of care w/ . Will continue to monitor.
--- NOTE | 2023-07-22 08:30 | PTCARENOTE ---
Fentanyl gtt d/c'd. Pt placed on CPAP 5/PSV 5 wean per . Sats 98%. Will continue to monitor.
[2023-07-22] MEDS: NSS (PRESERVATIVE FREE) 10 ML IV (08:33)
[2023-07-22] MEDS: PROTONIX IV 40 MG IV (08:33)
[2023-07-22] MEDS: ELIQUIS 5 MG TUBE (08:36)
[2023-07-22] MEDS: PLAVIX 75 MG TUBE (08:36)
[2023-07-22] MEDS: LOW STRENGTH ASPIRIN 81 MG TUBE (08:36)
--- NOTE | 2023-07-22 08:56 | PHA.VAN.IN ---
Assessment
- Assessment
Renal Function: Appears elevated from baseline (SCR 1.3->1.1 (baseline 0.9-1.0))
Maximum Temperature: 99.7
Minimum Temperature: 96.8
Concomitant Antimicrobials: piperacillin-tazobactam
Plan
- Plan
Initial / Loading Dose: vanc 1000 mg on 07/20 22:04
Maintenance Regimen: vanc 1250 mg x 1 now (20 mg/kg)
Monitoring: random 07/22 am
MRSA Screen: Ordered per protocol (PCR)
Pharmacokinetics Vancomycin I
- -
Patient Age: 68
Patient Sex: Female
Vancomycin Day #: 1
Indication: Pulmonary/Respiratory
Requesting Provider: Dr Joya
Pertinent Antimicrobial Allergies:
no known drug allergies
Height / Weight:
Height 5 ft 4.5 in
Actual Weight 61.3 kg
Pertinent Past Medical History: h/o lung cancer and bladder cancer, VDRF
- Vital Signs / Lab Results
Temp Pulse Resp BP Pulse Ox
98.3 F 90 18 123/89 98
07/22/23 07:34 07/22/23 08:45 07/22/23 08:45 07/22/23 08:00 07/22/23 08:45
Lab Results - Hematology
07/21/23 07/22/23
19:58 05:03
WBC 29.2 H 25.7 H
Band Neutrophils 6 H
Lab Results - Chemistry
07/21/23 07/22/23
19:58 05:03
BUN 21 H 20 H
Creatinine 1.4 H 1.1 H
Estimated Creat Clear 43
Albumin 5.2 H 3.2 L D
07/21/23 07/22/23 07/22/23
20:30 00:36 05:03
Lactic Acid 5.6 H* 0.8 1.1
Lab Results - Urine
07/22/23
00:36
Urine Nitrite Negative
Ur Leukocyte Esterase Negative
Microbiology Results
07/21/23 21:03 Influenza Types A & B (MELANIE) - Final
Nasal Swab Negative for Influenza A & B, NAAT
Negative results must be combined with clinical observations
and patient history.
Nucleic Acid Amplification test (NAAT)performed on the
[employer] platform.
--- NOTE | 2023-07-22 10:00 | PTCARENOTE ---
Pt extubated to R/A @ 0935. OGT removed w/ extubation. Sats 96%. Pt able to talk. Assisted w/ hearing aids. Pt has 'cochlear implants'. Once applied, pt able to have full conversation w/o issue. Restraints removed. Reviewed plan of care w/
pt and pt's dtr...all questions answered.
--- NOTE | 2023-07-22 10:11 | CON.INTV ---
Consultation
Consultation Request
Date/Time Consultation Requested: 07/22/2023
Date/Time Consultation Performed: 07/22/2023
Requesting Provider: Dr. Joya
Performing Provider: Dr. Capo Wolf
Reason for Consultation: Acute hypoxemic respiratory failure requiring mechanical ventilation.
Medical History
-
History of Present Illness:
68-year-old woman with past medical history significant for prior lung cancer, atherosclerosis, atrial fibrillation, prior bladder cancer who was seen in the emergency room for respiratory distress. Per reports and patient she was here visiting a
friend. Daughter states that the patient has been under a lot of stress due to these friend's sickness. In the emergency room she was in extreme respiratory distress requiring emergent mechanical ventilation. Subsequently transferred to the
critical care unit with hypotension requiring vasopressors. Central line and arterial line were placed overnight.
CT of the chest showed bilateral infiltrates with mosaic perfusion. No evidence for pulmonary embolism.
During my evaluation this morning she was on mechanical ventilation, with sedation break following commands. Coughing on demand.
It is noted that the patient has increase in troponins. proBNP also was elevated.
Past Medical History
Past Medical History: Other (See assessment and plan section)
Social History
Tobacco: Former Smoker (Quit smoking cigarettes 20 years ago. Smokes occasional marijuana.)
Alcohol: None
Drug: Marijuana (Recently quit)
Living: Alone
Family History
Family History: Reviewed & Not Pertinent
Allergies / Home Medications
Allergies
Allergy/AdvReac Type Severity Reaction Status Date / Time
No Known Drug Allergies Allergy NA Verified 02/21/23 08:52
pollen extracts Allergy runny Verified 02/21/23 08:52
nose,itchy
eyes
Home Medications
Medication Instructions Recorded Confirmed Last Taken Type
atorvastatin 80 mg tablet (Lipitor) 80 mg PO HS High cholesterol 04/07/22 02/21/23 02/20/23 History
ezetimibe 10 mg tablet (Zetia) 10 mg PO QPM High cholesterol 04/07/22 02/21/23 02/20/23 History
fluoxetine 20 mg capsule (Prozac) 20 mg PO HS Mental Health/Anxiety 04/07/22 02/21/23 02/20/23 History
pantoprazole 40 mg tablet,delayed 40 mg PO DAILY Gastrointestinal 04/07/22 02/21/23 02/20/23 History
release (Protonix) issue
tolterodine 4 mg capsule,extended 4 mg PO QPM Urinary issue 04/07/22 02/21/23 02/20/23 History
release 24 hr
multivitamin with folic acid 400 1 tab PO DAILY #0 tabs 04/11/22 02/21/23 02/20/23 Rx
mcg tablet (Tab-A-Kp)
lactobacillus combination no.4 3 3 mmu cells PO DAILY 07/07/22 02/21/23 02/20/23 History
billion cell capsule (Probiotic) Gastrointestinal issue
metoprolol succinate 25 mg 25 mg PO BID #60 tabs 07/26/22 02/21/23 02/20/23 Rx
tablet,extended release 24 hr
apixaban 5 mg tablet (Eliquis) 5 mg PO BID 30 days #60 tabs 08/04/22 02/18/23 02/18/23 20:00 Rx
clopidogrel 75 mg tablet 75 mg PO DAILY #90 tabs 11/06/22 02/18/23 02/15/23 Rx
furosemide 20 mg tablet 20 mg PO DAILY #30 tabs 11/11/22 02/21/23 02/20/23 Rx
lisinopril 5 mg tablet 5 mg PO DAILY Blood Pressure 12/28/22 02/21/23 02/20/23 History
aspirin 81 mg tablet,delayed 81 mg PO DAILY 02/18/23 02/21/23 02/20/23 08:00 History
release
empagliflozin 10 mg tablet 10 mg PO DAILY 'heart protection' 02/18/23 02/21/23 02/20/23 History
(Jardiance)
Review of Systems
-
History Source: Patient
All other systems: Negative unless noted
Vitals / Labs / Diagnostic Testing
Vital Signs
Temp Pulse Resp BP Pulse Ox
98.3 F 90 18 123/89 98
07/22/23 07:34 07/22/23 08:45 07/22/23 08:45 07/22/23 08:00 07/22/23 08:45
Lab Data
07/22/23 05:03
07/22/23 05:03
Laboratory Results
07/21/23 07/21/23 07/21/23
21:03 21:26 22:24
PT
INR
APTT 40.1 H
pH Cancelled 7.30 L
pCO2 Cancelled 41 H
pO2 Cancelled 209 H
HCO3 Cancelled 20.2 L
O2 Delivery Level Cancelled
07/22/23 07/22/23
00:36 05:03
PT 15.7 H
INR 1.27
APTT 42.1 H
pH 7.37
pCO2 36 H
pO2 121 H
HCO3 20.8 L
O2 Delivery Level
Microbiology
07/21/23 21:03 Nasal Swab Influenza Types A & B (MELANIE) - Final
Negative for Influenza A & B, NAAT
Negative results must be combined with clinical observations
and patient history.
Nucleic Acid Amplification test (NAAT)performed on the
[employer] platform.
Diagnostic Testing:
Physical Exam
-
HEENT: Normocephalic and Other (ET tube in place without secretions.)
Cardiovascular: S1/S2
Respiratory: Rales
GI: Soft and Non Distended
Neurology: Awake and Alert
Skin: Warm
General: Respiratory Distress (n)
Assessment
-
68-year-old woman with past medical history noted which is extensive. Admitted to the hospital with acute respiratory distress requiring intubation. Reportedly the patient was doing well prior to this. Acutely decompensated. She was in the
hospital visiting a friend who was sick.
Acute hypoxemic respiratory failure requiring intubation on mechanical ventilation
Suspect acute decompensation more from pulmonary edema.
Cannot rule out pneumonia.
CT chest 07/21/2023: Reviewed by me, showed no evidence for pulmonary embolism. Bilateral infiltrate consistent with pulmonary edema. Cannot rule out pneumonia.
Leukocytosis: Chronic/part of his reactive.
Shock: Possibly post intubation and sedation, cannot rule out septic component.
Lactic acidosis
Acute kidney injury
Conditions present prior admission:
Anxiety/depression
Severe MR
Chronic kidney disease stage III
Chronic heart failure with reduced ejection fraction
Paroxysmal atrial fibrillation
History of bladder cancer status post TURBT
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
History of coronary artery disease and carotid disease status post stents
Hypertension
Bilateral lung cancer status post resections twice, 11 years ago on 7 years ago.
History of cochlear implant
History of right femur ORIF
Right radial pseudoaneurysm repair
Former smoker
Echocardiogram 03/20/2023: Report reviewed, showed left ventricle mildly dilated. Mild LVH. Left ventricular ejection fraction 45%. Hypokinesis in the basal and mid anteroseptal and basal to mid inferior lateral black. Stage I diastolic
dysfunction. Normal right ventricular size and function. Dilated right atrium. Moderate MR. Mild TR.
Assessment and plan:
Critically ill from overnight, acute decompensation requiring intubation and mechanical ventilation.
Per daughter patient was doing well prior to arrival to the hospital. Clinical picture is more suggestive of cardiac etiology: Acute on chronic heart failure.
-
Mechanical ventilation settings reviewed.
Pulmonary mechanics are acceptable
FiO2 is down to 40%
Patient is comfortable, with sedation breaks following commands.
ABG 7.30
Spontaneous breathing trial performed under my supervision for about 30 to 40 minutes. Patient was comfortable, not tachycardic, not tachypneic. FiO2 40%.
Clear lung sounds
Extubated under my supervision at the bedside.
No stridor on exam.
All sedation has been discontinued. Patient is following commands and doing well.
-
Sedation has been discontinued. Patient following commands. Baseline neurological status.
-
Cannot rule out pneumonia: She has chronic leukocytosis. Currently afebrile.
Clinical picture suggest less likely infection
Check MRSA screening: If negative will discontinue vancomycin.
Low threshold to discontinue Zosyn as well in the next 24 hours. Continue for now.
-
Shock: Resolved. Levophed has been discontinued this morning after sedation break.
Discontinue arterial line
Creatinine trending lower
Lactic acid has cleared
If doing well later today we will discontinue central line as well.
-
Suspected acute on chronic heart failure with reduced ejection fraction.
proBNP on admission 3110.
CT chest: Bilateral groundglass opacities with mosaic perfusion suggestive of pulmonary edema.
Unclear increased stress from her friend been sick triggered current event.
Mild troponin increase: Non-ID.
Will continue to trend
EKG noted.
Echocardiogram to be repeated.
Will consult to cardiology for evaluation. Consultation has been placed. Case has been discussed.
Patient briefly was on vasopressors.
At this point no requirement for diuretics
Continue Eliquis/Plavix
Hold aspirin for now. Patient was not taking in the outpatient setting.
-
Will advance diet as tolerated
Aspiration precaution
-
DVT prophylaxis on anticoagulation
-
Critical care statement: A total of 38 minutes of critical care time was provided for this patient today. This includes management of unstable vital signs, evaluation of the patient at bedside, reviewing the patient's pertinent medical records
including ventilator settings, arterial blood gases, radiographs, microbiology, laboratory evaluations and discussion with primary team, critical care nursing, and respiratory therapy.
--- NOTE | 2023-07-22 12:00 | PTCARENOTE ---
3rd troponin sent. Left radial svetlana d/c'd per director medical affairs. On R/A...sats 96%. Pt resting comfortably w/o complaint. Passed swallow eval...diet advanced to regular...low salt. Call [facility]ure within reach.
[2023-07-22 12:21] LABS: Troponin I 0.535 ng/ml
--- NOTE | 2023-07-22 14:36 | PTCARENOTE ---
Echo being done at bedside.
--- NOTE | 2023-07-22 15:22 | W.PN.HOSP.TC ---
Documented by User: Shashi Trinidad MD, Resident 07/22/23 17:14
Today's Communication/Plan
-
repeat cbc
procalcitonin
cardiology consulted
waiting for echo
Assessment / Plan
Assessment / Plan
A/P:� Patient is a 68y F with PMH significant for ASCVD, lung cancer s/p bilateral upper lobectomies, A-Fib and P vera who presents to ED in respiratory distress.
Acute Hypoxemic Respiratory Failure
�- Admit to ICU for further evaluation and treatment.
�- Extubated this morning
�- Investigate potential etiologies of her sudden decompensation.
�- Possibility of PE / VTE seems very low in patient on triple therapy with ASA, Plavix and Eliquis.
�- Hand Binder Cutter evaluation.
Bilateral Lower Lobe Pneumonia
Septic Shock secondary to the above
Lactic Acidosis secondary to the above
�- Patient presents with leukocytosis, tachycardia and tachypnea and CXR evidence of patchy lower lobe opacities c/w pneumonia.
�- Evidence of life-threatening organ dysfunction in the form of acute hypoxemic respiratory failure as noted above.
�- Family denies any recent respiratory symptoms.�
�- COVID / influenza negative in the ED.
�- Cell count abnormalities may be combination of known MDS / P vera and acute stress.
�- Will continue to cover with broad spectrum abx for now pending further evaluation.
�- Follow up culture data and adjust regimen as needed.
�- Continue supportive care including IVFs, pressor support, etc.
�- Continue to investigate other possible causes of respiratory failure as noted below.
- checking procalcitonin, repeat cbc
ASCVD
Chronic HFrEF
Paroxysmal Atrial Fibrillation
�- Check / follow serial troponin to rule out new ischemia.
�- ? Takotsubo's scenario with significant social stressors / friend's recent passing / etc.
�- EKG done in the ED shows non-specific lateral T wave changes.
�- Check / update Echo - last in 04/04 with EF = 45% and moderate MR - improved from prior.
- Talked to intensivists, cardiology consulted.
�- Hold diuretics for now given hypotension / apparent sepsis.
�- Patient has no edema at all on exam and does not appear overloaded.
�- BNP is lowest in quite some time for her.
�- Consider Cardiology evaluation if abnormal troponin, echo, etc.
�- Continue Eliquis for stroke risk reduction.
�- Continue DAPT (most recent stent was October 2022).
Polycythemia vera
�- Increased WBC and platelets which seem very reactive in nature.
�- Follow for changes / improvement.
�- Patient is not on any specific medication - beyond antiplatelets - according to her daughter.
�- Follow for changes in cell counts.
�- Continue DAPT.
�- Consider Hematology evaluation if cell counts increase or do not improve.
Benign Hypertension
�- BP markedly elevated on arrival and then became hypotensive following sedation / intubation.
�- IVF boluses administered.� Now on Levophed for BP support.
�- TLC placed in the ED.
�- Hold OP BP medications pending improvement in sepsis / shock.
GERD / Husain's Esophagus
�- Stable.� Continue daily PPI.
History of Bladder Cancer
�- Stable.� Prior TURBT and BCG therapy.
�- Last cysto was 02/2023 and biopsy was normal at that time.
�
History of Lung Cancer
�- s/p bilateral upper lobectomies - most recent was 7 years ago.
�- No recent symptoms or issues in this regard.
�- CXR without evidence of mass, etc.
Anxiety / Depression
�- Very anxious - especially today - according to her daughter.
�- Hold OP meds for now.
�- Currently on sedation protocol which should manage her acute anxieties.
DVT Prophylaxis:� On Eliquis
Diet - started on regular diet.
Anticipated Discharge: > 48 hours
Subjective/Interval History
-
Date of Service: July 22, 2023
Objective Data
-
Labs:
Laboratory Results
07/22/23
05:03
WBC 25.7 H
Hgb 10.1 L D
Hct 32.0 L
Plt Count 531 H D
HCO3 20.8 L
Sodium 136
Potassium 4.2
Chloride 105
Carbon Dioxide 21 L
BUN 20 H
Creatinine 1.1 H
Glucose 178 H
Calcium 7.9 L D
Total Bilirubin 0.6
AST 45 H
ALT 25
Alkaline Phosphatase 107
Vital Signs:
Vital Signs
Temp Pulse Resp BP Pulse Ox
98.7 F 95 14 114/84 96
07/22/23 11:05 07/22/23 14:30 07/22/23 14:30 07/22/23 12:00 07/22/23 14:30
I&O
07/21/23 07/22/23 07/23/23
06:59 06:59 06:59
Intake Total 350.5 / 368.0 340.0 / 340.0
Output Total 705 / 780 275 / 275
Balance -354.5 / -412.0 65.0 / 65.0
Physical Exam
-
Genito-urinary: Pollard

Documented by User: Blair Maharaj MD 07/22/23 21:21
Review of Systems
-
All other systems: Reviewed and negative
Constitutional: Reports Fatigue and Weakness
EENT: Reports Sore Throat
Respiratory: Reports Trouble Breathing
Cardiac: Reports No Symptoms
Abdomen/GI: Reports No Symptoms
Skin: Reports No Symptoms
Neuro: Reports No Symptoms
Physical Exam
-
General: No Apparent Distress
HEENT: Normocephalic and Other (right IJ present)
Respiratory: Crackles and Decreased Breath Sounds
Cardiac: Regular Rhythm
GI: Soft, Nontender, Nondistended and Normal Bowel Sounds
Musculoskeletal: No Clubbing and No Edema
Skin: Warm
Neuro: Awake and AO x 3
Psych: Calm
Data Reviewed
-
Diagnostic Radiology: Image personally visualized and interpreted
CT Scan: Image personally visualized and interpreted
Labs: Labs Reviewed by me and Discussed with Physician
--- NOTE | 2023-07-22 15:28 | CON.CAR ---
Addendum entered and electronically signed by Matthias Meléndez MD 07/22/23 16:40:
I saw and examined the patient.
The SILVERWARE SUPERVISOR or PA's note was reviewed and I agree with the note.
Comment: General: Well developed, well nourished in NAD.
Neck: Supple, no JVD, HJR, carotids +2 B/L, no bruits bilaterally.
Heart: Non displaced PMI, RRR, no murmurs, No S3, S4, no rubs.
Lungs: Scattered rhonchi
Abdomen: Normal bowel sounds, soft, non-tender, non-distended.
Extremities: No clubbing, cyanosis or edema bilaterally.
Neuro: Grossly nonfocal, awake, alert and oriented x3.
Kyleigh has a history of ischemic cardiomyopathy with ejection fraction 45% in March 2023, CAD status post multiple prior stents with LAD stent in October 2022, moderate MR, PAF on chronic Eliquis, resection of bladder tumor, lung cancer status post
lobectomy. She was visiting a close friend who subsequently . She was noted to have severe respiratory distress with possible aspiration and was intubated. She was briefly on Levophed and was extubated.. Nicely without complaints.
Troponin was 0.348 and trended up to 0.535. Preliminary echocardiogram with ejection fraction of 30-35%.
Suspect event causing reduced ejection fraction may be Takotsubo's in the setting of severe stress. We could consider ischemic evaluation but patient has done well and is asymptomatic on room air. There was a question of CHF but this is all
resolved without getting IV Lasix. Will continue antibiotics for possible aspiration pneumonia as well. Will need repeat echocardiogram as an outpatient. Stop aspirin as patient is already on Plavix and Eliquis. Plan is to stop Plavix in October
2023.
Original Note:
Consultation
Consultation Request
Date/Time Consultation Requested: 07/22/23
Date/Time Consultation Performed: 07/22/23
Requesting Provider: Dr. Maharaj
Performing Provider: Dr. Meléndez
Medical History
-
History of Present Illness:
Patient came to [facility] last night with increased SOB and cardiology is now consulted for acute HF. Patient was visiting a friend at the hospital when she started with increasing SOB and appeared to be in respiratory distress. Patient was intubated and
central line placed in ER. Patient briefly on Levophed, but drips weaned and patient extubated this morning. Software Quality Analyst is following and there is concern for acute HF. pro-BNP was only 3110 on admission and has previously been as high as 9280
during acute HF admissions. Initial Troponin was 0.348 and has trended up to 0.535. ECG with inferior and lateral ST changes in SR. Patient with complex PMH including left upper lobe resection for stage IA non-small cell lung cancer 06/2011 and right
upper lobe VATS resection of a�stage I non-small cell lung cancer, coronary artery disease with unsuccessful PCI of a long segment BEHAVIORAL SCIENCES INSTRUCTOR of the right coronary artery in 2010 and 3.0 x 12 mm Vision stent to the mid circumflex then LAD PCI 11/05/22,
paroxysmal atrial fibrillation on Eliquis and bladder mass for which she underwent a resection for and continues to follow-up with urology along with iron deficiency anemia.Previously patient has had moderate to severe to severe MR, but by GEORGINA
07/10/22 the MR was moderate.
PMH:
Ischemic cardiomyopathy with ejection fraction ranging from 35-50% depending on modality
CAD
Circumflex stent 2010
BEHAVIORAL SCIENCES INSTRUCTOR of the RCA and borderline 50-60% mid LAD stenosis previously treated medically with patent circumflex stent by cath 07/09/22
s/p 3.0 mm [place] FAHAD to mid LAD 11/05/22
Mod MR
mod to sev 2010, mod in 2017 and 2020, sev on cath 06/2022, mod on GEORGINA 06/2022
Paroxysmal AF
Chronic Eliquis OAC
Anemia
Resection of bladder tumor 07/16/22
History of lung cancer with bilateral lobectomies
Carotid stenosis
Past Medical History
Past Medical History: Other (in HPI)
Past Surgical History: Other (in HPI)
Social History
Tobacco: Former Smoker
Alcohol: None
Family History
Family History: CAD and Cancer
Allergies / Home Medications
Allergy/AdvReac Type Severity Reaction Status Date / Time
No Known Drug Allergies Allergy NA Verified 02/21/23 08:52
pollen extracts Allergy runny Verified 02/21/23 08:52
nose,itchy
eyes
Medication Instructions Recorded Confirmed Type
atorvastatin 80 mg tablet (Lipitor) 80 mg PO HS High cholesterol 04/07/22 07/22/23 History
ezetimibe 10 mg tablet (Zetia) 10 mg PO QPM High cholesterol 04/07/22 07/22/23 History
fluoxetine 20 mg capsule (Prozac) 20 mg PO HS Mental Health/Anxiety 04/07/22 07/22/23 History
pantoprazole 40 mg tablet,delayed 40 mg PO DAILY Gastrointestinal 04/07/22 07/22/23 History
release (Protonix) issue
tolterodine 4 mg capsule,extended 4 mg PO QPM Urinary issue 04/07/22 07/22/23 History
release 24 hr
lactobacillus combination no.4 3 3 mmu cells PO DAILY 07/07/22 07/22/23 History
billion cell capsule (Probiotic) Gastrointestinal issue
lisinopril 5 mg tablet 5 mg PO DAILY Blood Pressure 12/28/22 07/22/23 History
empagliflozin 10 mg tablet 10 mg PO DAILY 'heart protection' 02/18/23 07/22/23 History
(Jardiance)
apixaban 5 mg tablet (Eliquis) 5 mg PO BID Blood Clot 07/22/23 07/22/23 History
Prevention/Tx
clopidogrel 75 mg tablet 75 mg PO DAILY Blood Clot 07/22/23 07/22/23 History
Prevention/Tx
furosemide 20 mg tablet 20 mg PO DAILY Fluid 07/22/23 07/22/23 History
Retention/Swelling
metoprolol succinate 25 mg 25 mg PO BID Blood Pressure 07/22/23 07/22/23 History
tablet,extended release 24 hr
multivitamin with folic acid 400 1 tab PO DAILY Supplement 07/22/23 07/22/23 History
mcg tablet (Tab-A-Kp)
Review of Systems
-
History Source: Patient
All other systems: Negative unless noted
Physical Exam
Vital Signs
Temp Pulse Resp BP Pulse Ox
98.7 F 95 14 114/84 96
07/22/23 11:05 07/22/23 14:30 07/22/23 14:30 07/22/23 12:00 07/22/23 14:30
General: NAD, awake and alert
HEENT: EOMI
Heart: Reg
Lungs: Coarse BS without wheeze or rales
Abd: +BS
Ext: No edema B/L
Neuro: nonfocal
Lab Results
07/22/23 05:03
07/22/23 05:03
Troponin I 0.535 ng/ml H* 07/22/23 11:39
Ade-P-Kebgfmrtjpr Pept 3110 pg/ml 07/21/23 19:58
Impression / Plan
-
PCP: Dr. Kwon
Cardiology: Dr. Meléndez
Impression:
Acute hypoxic respiratory failure
intubated in the ER 07/21/23, extubated 07/22/23
PNA, B/L lower lobes
Sepsis and shock
Acute HFrEF
Ischemic cardiomyopathy with ejection fraction ranging from 35-50% depending on modality
CAD
Circumflex stent 2010
BEHAVIORAL SCIENCES INSTRUCTOR of the RCA and borderline 50-60% mid LAD stenosis previously treated medically with patent circumflex stent by cath 07/09/22
s/p 3.0 mm [place] FAHAD to mid LAD 11/05/22
Mod MR
mod to sev 2010, mod in 2017 and 2020, sev on cath 06/2022, mod on GEORGINA 06/2022
Paroxysmal AF
Chronic Eliquis OAC
Anemia
Resection of bladder tumor 07/16/22
History of lung cancer with bilateral lobectomies
Carotid stenosis
Echo 02/27/21: LV: Normal size and function.� EF 50-55%.� Possible basal inferior HK.� RV: Normal, LA: Severely dilated, RA: Normal, MV: Moderate MR, AV: Sclerotic.� Trace AI.� TV: Mild TR with PAP 25 mmHg
Echo 07/07/22: LV: EF 35%.� Global HK with severe HK to akinesis of the basal and mid inferior and inferolateral segments.� Severe HK of the basal and mid anterior and anteroseptal.� Stage II diastolic dysfunction.� RV: Mildly dilated, LA: Severely
dilated, RA: Mildly dilated, MV: Mild to moderate eccentric MR, AV: Trace AI.� TV: Mild TR with PAP 43
GEORGINA 07/10/22: LV: Mildly reduced EF estimated 45-50%.� RV: Dilated, LA: Dilated, RA: Dilated, GEORGI: No thrombus, MV: Prolapse of A3-P3 segments with moderate eccentric MR.� ERO 0.2 cm� and regurgitant volume 32 by PISA method.� AV: Trace AI, TV: Mild
TR with PAP 32 mmHg
Echo 03/20/23: EF 45%, hypokinesis basal to mid anteroseptal, basal to mid inferior and inferolateral black, stage I diastolic dysfunction, mod MR
Plan:
-Patient came to [facility] last night with increased SOB and cardiology is now consulted for acute HF. Patient was visiting a friend at the hospital when she started with increasing SOB and appeared to be in respiratory distress. Patient was intubated
and central line placed in ER. Patient briefly on Levophed, but drips weaned and patient extubated this morning. Software Quality Analyst is following and there is concern for acute HF. pro-BNP was only 3110 on admission and has previously been as high as 9280
during acute HF admissions. Initial Troponin was 0.348 and has trended up to 0.535. ECG with inferior and lateral ST changes in SR. Patient with complex PMH including left upper lobe resection for stage IA non-small cell lung cancer 06/2011 and right
upper lobe VATS resection of a�stage I non-small cell lung cancer, coronary artery disease with unsuccessful PCI of a long segment BEHAVIORAL SCIENCES INSTRUCTOR of the right coronary artery in 2010 and 3.0 x 12 mm Vision stent to the mid circumflex then LAD PCI 11/05/22,
paroxysmal atrial fibrillation on Eliquis and bladder mass for which she underwent a resection for and continues to follow-up with urology along with iron deficiency anemia.Previously patient has had moderate to severe to severe MR, but by GEORGINA
07/10/22 the MR was moderate.
-Patient intubated in the ER last night and then extubated earlier today.
-From a CV standpoint patient with acute HFmrEF, last EF was 45% by echo 03/20/23. Recheck echo.
-ECG reviewed by me with inferior and lateral ST changes and Troponin is up to 0.535. Patient with known BEHAVIORAL SCIENCES INSTRUCTOR RCA and previous Circ stent in 2010 and more recently LAD PCI 11/05/22. Trend Troponin and check echo. Pending echo can make a better
determination if this was a NSTEMI event or a nonischemic myocardial injury Troponin elevation event in the setting of acute HF.
-Hgb is dropping, will need to follow.
-Patient was taking Plavix 75 mg daily and Eliquis 5 mg BID at time of admission. Will stop aspirin that was ordered on admission.
-Software Quality Analyst notes reviewed and there is a lower suspicion for PNA at this point and they are considering stopping antibiotics.
--- NOTE | 2023-07-22 16:00 | CM ---
Placed a call to patient's daughter to obtain information for assessment. Patient's daughter, answered and stated that she could talk. Patient's daughter stated that patient lives with her friend, Christiano in a one story home with two steps to enter.
She described her as independent with her ADLs, personal care, dressing and bathing. She ambulates without the assistance of an AD. Patient's daughter confirmed that patient can do her own lead generation specialist, cooking, cleaning, laundry.
She drives and can get to her appointments and do her own shopping.
She has had VN in the past through
She has a prescription plan and uses the [facility] on [facility] for all of her medications.
Patient's PCP is, Breanne Smith DO.
Patient's daughter was unsure at this time of what patient will need at discharge but stated that she will remain agreeable to what is medically indicated as will patient.
Plan: Case management will continue to follow and assist with discharge planning. Will await indication on behalf of medical staff.
--- NOTE | 2023-07-22 16:45 | PTCARENOTE ---
Pt remains on R/A...sats 97%. Lungs clear. Occasional harsh NPC. Order rec'd to d/c RIJ TLC...VAT aware. Dinner ordered. Call mcclure within reach. Will continue to monitor.
[2023-07-22] MEDS: TYLENOL 650 MG PO (20:05)
[2023-07-22] MEDS: TOPROL XL 12.5 MG PO (20:06)
[2023-07-22] MEDS: ELIQUIS 5 MG PO (20:06)
--- NOTE | 2023-07-22 20:30 | PTCARENOTE ---
received patient. oriented x3. b/l cochlear implants noted. SR/ST on monitor. lungs CTA. frequent productive cough. temp sensing cartwright draining clear yellow urine. pt repositions self. oral care done by patient. denies pain and SOB. call mcclure within
reach. plan of care ongoing.
[2023-07-23] VITALS (36 sets, daily range): BP systolic 86–141; BP diastolic 49–128; O2SAT 90–96; BMI 22.8
--- NOTE | 2023-07-23 | PTCARENOTE ---
pt reassessed. assessments unchanged. pt resting comfortably in bed, repositioning self throughout night. plan of care ongoing.
--- NOTE | 2023-07-23 04:15 | W.PN.UPDATE ---
Addendum entered and electronically signed by BOB Villa 07/23/23 05:43:
Episodes of nausea unable to currently to take PO meds.
Original Note:
Update Note
Progress Note Update
Patient went into rapid AFIB (150 to 180bpm); gave 5mg of Lopressor; heart rate still 130 to 140 bpm, rate continue to be elevated, bp stable, gave additional 5mg of Lopressor. Cardiology recommendation to increase PO metoprolol dosing.�
�
[2023-07-23] MEDS: LOPRESSOR 5 MG IV ×3 (04:18→19:19)
[2023-07-23 04:31] LABS: % Basophils 0.5 % (0-2); % Lymphocytes 7.4 % (20.5-51.1); % Monocytes 3.2 % (1.7-9.3); % Neutrophils 85.9 % (42.2-75.2); Absolute Basophils 0.1 10^3/uL (0-0.2); Absolute Immature Granulocytes 0.8 10^3/uL (0-0.05); Absolute Lymphocytes 1.9 10^3/uL (1.2-3.4); Absolute Monocytes 0.8 10^3/uL (0.1-0.6); Absolute Neutrophils 21.8 10^3/uL (1.4-6.5); Hematocrit 34.5 % (37.0-47.0); Hemoglobin 10.7 g/dL (12.0-16.0); Mean Corpuscular Hgb 21.6 pg (27.0-31.0); Mean Corpuscular Volume 69.6 fL (81.0-99.0); Nucleated Red Blood Cells % 0.7 %; Platelet Count 595 10^3/uL (130-400); Red Blood Cell Count 4.96 10^6/uL (4.20-5.40); Red Cell Dist. Width 28.4 % (11.5-14.5); White Blood Cell Count 25.4 10^3/uL (4.8-10.8)
[2023-07-23 04:49] LABS: Blood Urea Nitrogen 19 mg/dl (7-17); Carbon Dioxide 19 mmol/L (22-30); Chloride 107 mmol/L (98-107); Estimated Creatinine Clearance 39 ml/min; Glucose 164 mg/dl (70-99); Magnesium 2.2 mg/dl (1.6-2.3); Potassium 4.2 mmol/L (3.5-5.1); Sodium 137 mmol/L (135-145)
[2023-07-23] MEDS: ZOSYN 50 IV ×2 (04:54→09:43)
[2023-07-23 05:13] LABS: Procalcitonin 2.58 ng/ml (0.0-0.25)
--- NOTE | 2023-07-23 05:18 | PTCARENOTE ---
Addendum entered by Rosario Tyson RN 07/23/23 05:44:
patient with 2 large BMs during episode - olivia andrea.
Original Note:
around 0400, pt rang call mcclure c/o SOB. pt tachycardic up to 190s, diaphoretic, anxious. denies CP. BP stable. EKG done, afib RVR. ICU SENIOR MANUFACTURING ENGINEER at bedside. 5mg lopressor given x1 with no improvement of HR, second dose given - see JUL. AM labs sent. pt
oriented throughout episode.
currently - afib on monitor, HR 130-150s. awaiting further orders.
[2023-07-23] MEDS: TYLENOL 650 MG PO ×3 (06:17→20:05)
[2023-07-23] MEDS: TOPROL XL 12.5 MG PO ×3 (06:17→20:07)
[2023-07-23] MEDS: ZOFRAN 4 MG IV ×2 (06:18→12:08)
--- NOTE | 2023-07-23 06:43 | PTCARENOTE ---
afib on monitor, HR 130s-150s. ICU LEAK PATCHER aware. additional dose of PO metoprolol given along with AM dose. PRN zofran given for nausea. temp 101, PRN PO tylenol given. see MAR. no further orders. care ongoing.
[2023-07-23] MEDS: ELIQUIS 5 MG PO ×2 (07:24→20:07)
[2023-07-23] MEDS: PLAVIX 75 MG PO (07:24)
[2023-07-23] MEDS: NSS (PRESERVATIVE FREE) 10 ML IV (07:25)
[2023-07-23] MEDS: PROTONIX IV 40 MG IV (07:25)
--- NOTE | 2023-07-23 08:34 | W.PN.HOSP.TC ---
Addendum entered and electronically signed by Rocky Maharaj MD 07/23/23 23:14:
Attending Addendum-
I saw and evaluated the patient. I reviewed the resident�s note and agree with findings and plan as documented in the resident�s note. Patient feels much improved still feels fatigued with black sputum production complains of diarrhea, Exam: Heart
RRR lungs rhonchi @ bases b/l abd soft NT ND pos BS LE no edema PLan: Sepsis secondary to b/l PNA- check cxr personally reviewed b/l ll PNA, change to unasyn per ICU check sputum cx check labs in am with leukocytosis diarrhea- check c diff could be
abx associated add bacid A fib- now in sinus cont amiodarone per cards increase metoprolol Ischemic CM vs Takosubo- cont to monitor cont meds cards on board
Time spent coordinating care, review of plan of care with resident, review of records, med rec, consults, notes, labs, rads, d/w nursing, cards, ICU - 55 mins
Original Note:
Documented by User: Shashi Trinidad MD, Resident 07/23/23 15:41
Today's Communication/Plan
-
cdiff antigen
repeat CXR
remove Cartwright
plan to switch to Unisyn from Zosyn
downgrade to telemetry
Assessment / Plan
Assessment / Plan
A/P:� Patient is a 68y F with PMH significant for ASCVD, lung cancer s/p bilateral upper lobectomies, A-Fib and P vera who presents to ED in respiratory distress.
Patient had a rapid afib last night for which she was started on two doses of 5 mg lopresor which helped to decreased the rate. Currently sinus rhythm.
Acute Hypoxemic Respiratory Failure
�- Admit to ICU for further evaluation and treatment.
�- Extubated this morning
�- Investigate potential etiologies of her sudden decompensation.
�- Possibility of PE / VTE seems very low in patient on triple therapy with ASA, Plavix and Eliquis.
�- Activities Coordinator evaluation.
Afib with RVR
- converted to sinus rhythm
- Started Amiodarone 200 mg 3 times a day per cardio
- cardiology will talk to patient to adjust medication
-repeat echo and stress test outpatient cardiology
Bilateral Lower Lobe Pneumonia
Septic Shock secondary to the above
Lactic Acidosis secondary to the above
�- Patient presents with leukocytosis, tachycardia and tachypnea and CXR evidence of patchy lower lobe opacities c/w pneumonia.
�- Evidence of life-threatening organ dysfunction in the form of acute hypoxemic respiratory failure as noted above.
�- Family denies any recent respiratory symptoms.�
�- COVID / influenza negative in the ED.
�- Cell count abnormalities may be combination of known MDS / P vera and acute stress.
�- Will continue to cover with broad spectrum abx for now pending further evaluation.
�- Follow up culture data and adjust regimen as needed.
�- Continue supportive care including IVFs, pressor support, etc.
�- Continue to investigate other possible causes of respiratory failure as noted below.
- Procalcitonin elevated, WBC rising.
- IV Zosyn day 2, talked to the ICU resident about the plan. Switching to Unisyn as Zosyn has increased risk of aspirational pneumonia, then to finally switch to PO
- repeat CXR to see for worsening pneumonia
Diarrhea:
- checking C diff antigen for abx related diarrhea.
- remove cartwright
ASCVD
Chronic HFrEF
Paroxysmal Atrial Fibrillation
�- Check / follow serial troponin to rule out new ischemia.
�- ? Takotsubo's scenario with significant social stressors / friend's recent passing / etc.
�- EKG done in the ED shows non-specific lateral T wave changes.
�- Check / update Echo - last in 04/04 with EF = 45% and moderate MR - improved from prior.
- Talked to intensivists, cardiology consulted.
�- Hold diuretics for now given hypotension / apparent sepsis.
�- Patient has no edema at all on exam and does not appear overloaded.
�- BNP is lowest in quite some time for her.
�- Consider Cardiology evaluation if abnormal troponin, echo, etc.
�- Continue Eliquis for stroke risk reduction.
�- Continue DAPT (most recent stent was October 2022).
- - On eliquis and plavix. ASA stopped per cardio. Plavix until October 2023
Polycythemia vera
�- Increased WBC and platelets which seem very reactive in nature.
�- Follow for changes / improvement.
�- Patient is not on any specific medication - beyond antiplatelets - according to her daughter.
�- Follow for changes in cell counts.
�- Continue DAPT.
�- Consider Hematology evaluation if cell counts increase or do not improve.
Benign Hypertension
�- BP markedly elevated on arrival and then became hypotensive following sedation / intubation.
�- IVF boluses administered.� Now on Levophed for BP support.
�- TLC placed in the ED.
�- Hold OP BP medications pending improvement in sepsis / shock.
GERD / Husain's Esophagus
�- Stable.� Continue daily PPI.
History of Bladder Cancer
�- Stable.� Prior TURBT and BCG therapy.
�- Last cysto was 02/2023 and biopsy was normal at that time.
�
History of Lung Cancer
�- s/p bilateral upper lobectomies - most recent was 7 years ago.
�- No recent symptoms or issues in this regard.
�- CXR without evidence of mass, etc.
Anxiety / Depression
�- Very anxious - especially today - according to her daughter.
�- Hold OP meds for now.
�- Currently on sedation protocol which should manage her acute anxieties.
DVT Prophylaxis:� On Eliquis
Diet - started on regular diet.
Anticipated Discharge: 24 - 48 hours
Subjective/Interval History
-
Date of Service: July 23, 2023
Objective Data
-
Labs:
Laboratory Results
07/23/23
04:21
WBC 25.4 H
Hgb 10.7 L
Hct 34.5 L
Plt Count 595 H
Sodium 137
Potassium 4.2
Chloride 107
Carbon Dioxide 19 L
BUN 19 H
Creatinine 1.2 H
Glucose 164 H
Calcium 9.0
Vital Signs:
Vital Signs
Temp Pulse Resp BP Pulse Ox
101.0 F H 122 31 97/54 100
07/23/23 07:49 07/23/23 07:33 07/23/23 07:33 07/23/23 07:33 07/23/23 07:59
I&O
07/22/23 07/23/23 07/24/23
06:59 06:59 06:59
Intake Total 350.5 / 368.0 850.0 / 1090.0 340 / 340
Output Total 705 / 780 1875 / 2075 300 / 300
Balance -354.5 / -412.0 -1025.0 / -985.0 40 / 40
Physical Exam
-
General: Well Developed and Other (cartwright's catheter present )
HEENT: Normocephalic and Atraumatic
Respiratory: Clear to Auscultation
Cardiac: Regular Rhythm
Breast: Deferred by me
GI: Soft and Tender (right lower quandrant )
Musculoskeletal: No Edema
Skin: Warm
Neuro: Awake, Alert and Oriented
Psych: Calm

Documented by User: Rocky Maharaj MD 07/23/23 23:07
Assessment / Plan
Assessment / Plan
A/P:� Patient is a 68y F with PMH significant for ASCVD, lung cancer s/p bilateral upper lobectomies, A-Fib and P vera who presents to ED in respiratory distress.
Patient had a rapid afib last night for which she was started on two doses of 5 mg lopresor which helped to decreased the rate. Currently sinus rhythm.
Acute Hypoxemic Respiratory Failure
- resolved
�- transfer to tele
�- Extubated 07/21
�- Investigate potential etiologies of her sudden decompensation.
�- Possibility of PE / VTE seems very low in patient on triple therapy with ASA, Plavix and Eliquis.
�- Activities Coordinator evaluation.
Afib with RVR
- converted to sinus rhythm
- Started Amiodarone 200 mg 3 times a day per cardio
- cardiology will talk to patient to adjust medication
-repeat echo and stress test outpatient cardiology
Bilateral Lower Lobe Pneumonia
Septic Shock secondary to the above
Lactic Acidosis secondary to the above
�- Patient presents with leukocytosis, tachycardia and tachypnea and CXR evidence of patchy lower lobe opacities c/w pneumonia.
�- Evidence of life-threatening organ dysfunction in the form of acute hypoxemic respiratory failure as noted above.
�- Family denies any recent respiratory symptoms.�
�- COVID / influenza negative in the ED.
�- Cell count abnormalities may be combination of known MDS / P vera and acute stress.
�- Will continue to cover with broad spectrum abx for now pending further evaluation.
�- Follow up culture data and adjust regimen as needed.
�- Continue supportive care including IVFs, pressor support, etc.
�- Continue to investigate other possible causes of respiratory failure as noted below.
- Procalcitonin elevated, WBC rising.
- IV Zosyn day 2, talked to the ICU resident about the plan. Switching to Unasyn as Zosyn has increased risk of aspirational pneumonia, then to finally switch to PO
- repeat CXR to see for worsening pneumonia
Diarrhea:
- checking C diff antigen for abx related diarrhea.
- remove cartwright
ASCVD
Chronic HFrEF
Paroxysmal Atrial Fibrillation
�- Check / follow serial troponin to rule out new ischemia.
�- ? Takotsubo's scenario with significant social stressors / friend's recent passing / etc.
�- EKG done in the ED shows non-specific lateral T wave changes.
�- Check / update Echo - last in 04/04 with EF = 45% and moderate MR - improved from prior.
- Talked to intensivists, cardiology consulted.
�- Hold diuretics for now given hypotension / apparent sepsis.
�- Patient has no edema at all on exam and does not appear overloaded.
�- BNP is lowest in quite some time for her.
�- Consider Cardiology evaluation if abnormal troponin, echo, etc.
�- Continue Eliquis for stroke risk reduction.
�- Continue DAPT (most recent stent was October 2022).
- - On eliquis and plavix. ASA stopped per cardio. Plavix until October 2023
Polycythemia vera
�- Increased WBC and platelets which seem very reactive in nature.
�- Follow for changes / improvement.
�- Patient is not on any specific medication - beyond antiplatelets - according to her daughter.
�- Follow for changes in cell counts.
�- Continue DAPT.
�- Consider Hematology evaluation if cell counts increase or do not improve.
Benign Hypertension
�- BP markedly elevated on arrival and then became hypotensive following sedation / intubation.
�- IVF boluses administered.� Now on Levophed for BP support.
�- TLC placed in the ED.
�- Hold OP BP medications pending improvement in sepsis / shock.
GERD / Husain's Esophagus
�- Stable.� Continue daily PPI.
History of Bladder Cancer
�- Stable.� Prior TURBT and BCG therapy.
�- Last cysto was 02/2023 and biopsy was normal at that time.
�
History of Lung Cancer
�- s/p bilateral upper lobectomies - most recent was 7 years ago.
�- No recent symptoms or issues in this regard.
�- CXR without evidence of mass, etc.
Anxiety / Depression
�- Very anxious - especially today - according to her daughter.
�- Hold OP meds for now.
�- Currently on sedation protocol which should manage her acute anxieties.
DVT Prophylaxis:� On Eliquis
Diet - started on regular diet.
Anticipated Discharge: > 48 hours
Review of Systems
-
All other systems: Reviewed and negative (except as documented)
Constitutional: Reports Fatigue
Respiratory: Reports Cough
Cardiac: Reports No Symptoms
Abdomen/GI: Reports No Symptoms
Neuro: Reports No Symptoms
Physical Exam
-
Genito-urinary: Cartwright
Data Reviewed
-
Diagnostic Radiology: Image personally visualized and interpreted and Report Reviewed by me
Labs: Labs Reviewed by me and Discussed with Physician
--- NOTE | 2023-07-23 10:29 | W.PN.INTV ---
Today's Communication / Plan
Recommendations
Transition to Unasyn
Continue to monitor renal function
Heart rate control
Increase activity as able
Wean off oxygen
Transfer to telemetry
Pulmonary will continue to follow
Assessment
-
68-year-old woman with past medical history noted which is extensive. Admitted to the hospital with acute respiratory distress requiring intubation. Reportedly the patient was doing well prior to this. Acutely decompensated. She was in the
hospital visiting a friend who was sick.
Acute hypoxemic respiratory failure requiring intubation on mechanical ventilation
Extubated 07/23/2023
Suspect acute decompensation more from pulmonary edema.
Cannot rule out pneumonia.
CT chest 07/21/2023: Reviewed by me, showed no evidence for pulmonary embolism. Bilateral infiltrate consistent with pulmonary edema. Cannot rule out pneumonia.
Leukocytosis: Chronic/part of his reactive.
Shock: Possibly post intubation and sedation, cannot rule out septic component.
Lactic acidosis
Acute kidney injury
Conditions present prior admission:
Anxiety/depression
Severe MR
Chronic kidney disease stage III
Chronic heart failure with reduced ejection fraction
Paroxysmal atrial fibrillation
History of bladder cancer status post TURBT
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
History of coronary artery disease and carotid disease status post stents
Hypertension
Bilateral lung cancer status post resections twice, 11 years ago on 7 years ago.
History of cochlear implant
History of right femur ORIF
Right radial pseudoaneurysm repair
Former smoker
Echocardiogram 03/20/2023: Report reviewed, showed left ventricle mildly dilated. Mild LVH. Left ventricular ejection fraction 45%. Hypokinesis in the basal and mid anteroseptal and basal to mid inferior lateral black. Stage I diastolic
dysfunction. Normal right ventricular size and function. Dilated right atrium. Moderate MR. Mild TR.
Assessment and plan:
Critically ill from overnight, acute decompensation requiring intubation and mechanical ventilation.
Per daughter patient was doing well prior to arrival to the hospital. Clinical picture is more suggestive of cardiac etiology: Acute on chronic heart failure.
-
Mechanical ventilation settings reviewed.
Extubated 07/22/2023.
No stridor on exam
Normal rate supplemental oxygen
Not bronchospastic on exam.
-
Possible aspiration pneumonia/pneumonitis-vomiting during acute event in the emergency room: She has chronic leukocytosis. Low-grade fever noted.
MRSA screening negative-vancomycin discontinued
Currently on Zosyn, will transition to Unasyn.
Once able to take orals may use Augmentin.
Complete total of 5 days of antibiotics.
-
Shock: Resolved. Levophed has been discontinued this morning after sedation break.
Arterial line has been discontinued
Creatinine trending lower
Lactic acid has cleared
Right IJ central line has been discontinued.
-
Suspected acute on chronic heart failure with reduced ejection fraction.
proBNP on admission 3110.
CT chest: Bilateral groundglass opacities with mosaic perfusion suggestive of pulmonary edema.
possible Takotsubo cardiomyopathy based on echocardiogram. Ejection fraction is slightly lower compared to prior.
Mild troponin increase: Non-LA.
Discussed with cardiology, patient overnight with rapid atrial fibrillation.
Heart rate improved this morning
Medications been adjusted
At this point no need for aggressive diuresis.
Continue Eliquis/Plavix
Hold aspirin for now. Patient was not taking in the outpatient setting.
-
Will advance diet as tolerated, complaining of some nausea.
Aspiration precaution
-
DVT prophylaxis on anticoagulation
-
Will transfer to telemetry today.
Pulmonary will continue to follow for hypoxemia
Pneumonia/pneumonitis.
Patient will need outpatient follow-up to document resolution of infiltrates.
Subjective Dataa
Subjective Data
Date of Service:
Date of Service: July 23, 2023
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
Subjective:
Patient has occasional coughing without phlegm production.
Occasional nausea
Denies shortness of breath at rest
Denies any chest pain.
Denies wheezing.
Review of Systems
General: Fever
HEENT: Oral/Throat Pain (n)
Cardiopulmonary: Dyspnea (none at rest), Cough, Sputum Production (n) and Chest Pain (n)
GI: Abdominal Pain (n), Nausea and Vomiting (n)
Objective Data
Data Reviewed
Vital Signs / I&O / Oxygen:
Vital Signs
Temp Pulse Resp BP Pulse Ox
101.0 F H 136 27 97/65 99
07/23/23 07:49 07/23/23 09:00 07/23/23 09:00 07/23/23 09:00 07/23/23 09:00
Intake and Output
07/22/23 07/23/23 07/24/23
06:59 06:59 06:59
Intake Total 350.5 / 368.0 850.0 / 1090.0 340 / 340
Output Total 705 / 780 1875 / 2075 330 / 330
Balance -354.5 / -412.0 -1025.0 / -985.0
SaO2 [CPAP/PSV] 98
SaO2 [A/C] 98
SaO2 99
Nasal Cannula flow liters per 4
minute
Physical Exam
General: Respiratory Distress (n) and Comfortable
HEENT: Normocephalic
Cardiovascular: Irregular Rhythm
Respiratory: Clear and Non-Labored Respirations
GI: Soft and Non Distended
Neurology: Awake, Alert and No Motor Deficits
Labs/Micro/Reports
Lab Data
07/23/23 04:21
07/23/23 04:21
Microbiology
07/21/23 20:30 Blood/Venous Blood Culture - Preliminary
No Growth in 24 hours- Final report to follow
07/21/23 20:30 Blood/Venous Blood Culture - Preliminary
No Growth in 24 hours- Final report to follow
07/22/23 10:32 Nose Nasal Screen MRSA (PCR) - Final
MRSA not detected - performed by PCR methodology.
07/21/23 21:03 Nasal Swab Influenza Types A & B (MELANIE) - Final
Negative for Influenza A & B, NAAT
Negative results must be combined with clinical observations
and patient history.
Nucleic Acid Amplification test (NAAT)performed on the
[employer] platform.
--- NOTE | 2023-07-23 12:01 | PTCARENOTE ---
Update in morning rounds with night time nanny team. Follow up at bedside with cardiology and hospitalist team. Updated orders with pharmacy and ongoing. Assessment unchanged and ongoing with vital sign trends and as documented. Continue with teaching
and reinforcement. Follow along with family when available.
--- NOTE | 2023-07-23 14:52 | PTCARENOTE ---
Patient in and out of bed with one person assist. Follow up chest xray completed. Assessment changes, presently on room air saturation 96% no noted sob/angelchay dc'd patient has voided at this assessment. Continue with pulmonary toilet. IV team
down to assess and replace line. New IV antibiotics to start. Patient presently in telemetry status. Call mcclure in reach, hourly rounds and safety checks ongoing.
--- NOTE | 2023-07-23 14:55 | W.PN.CARDCBS ---
Today's Communication / Plan
-
Atrial fibrillation with spontaneously converted to sinus rhythm
Start amiodarone 200 mg p.o. 3 times daily with high risk of recurrent A-fib
Ejection fraction has decreased slightly.
May have been due to Takotsubo in the setting of severe stress although cannot exclude ischemia
Consider recheck outpatient echo and stress test as an outpatient since she continues to do very well
Impression / Plan
-
PCP: Dr. Kwon
Cardiology: Dr. Meléndez
Impression:
Acute hypoxic respiratory failure
intubated in the ER 07/21/23, extubated 07/22/23
PNA, B/L lower lobes
Sepsis and shock
Paroxysmal AF, atrial fibrillation 07/23/2023 which spontaneously converted to sinus rhythm
Ischemic cardiomyopathy with ejection fraction ranging from 35-50% depending on modality
CAD
Circumflex stent 2010
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
s/p 3.0 mm Ino FAHAD to mid LAD 11/05/22
Mod MR
mod to sev 2010, mod in 2017 and 2020, sev on cath 06/2022, mod on GEORGINA 06/2022
Chronic Eliquis OAC
Anemia
Resection of bladder tumor 07/16/22
History of lung cancer with bilateral lobectomies
Carotid stenosis
Echo 02/27/21: LV: Normal size and function.� EF 50-55%.� Possible basal inferior HK.� RV: Normal, LA: Severely dilated, RA: Normal, MV: Moderate MR, AV: Sclerotic.� Trace AI.� TV: Mild TR with PAP 25 mmHg
Echo 07/07/22: LV: EF 35%.� Global HK with severe HK to akinesis of the basal and mid inferior and inferolateral segments.� Severe HK of the basal and mid anterior and anteroseptal.� Stage II diastolic dysfunction.� RV: Mildly dilated, LA: Severely
dilated, RA: Mildly dilated, MV: Mild to moderate eccentric MR, AV: Trace AI.� TV: Mild TR with PAP 43
GEORGIAN 07/10/22: LV: Mildly reduced EF estimated 45-50%.� RV: Dilated, LA: Dilated, RA: Dilated, GEORGI: No thrombus, MV: Prolapse of A3-P3 segments with moderate eccentric MR.� ERO 0.2 cm� and regurgitant volume 32 by PISA method.� AV: Trace AI, TV: Mild
TR with PAP 32 mmHg
Echo 03/20/23: EF 45%, hypokinesis basal to mid anteroseptal, basal to mid inferior and inferolateral black, stage I diastolic dysfunction, mod MR
Echocardiogram 07/22/2023: Ejection fraction 30 to 35%, global hypokinesis with anteroseptal, basal inferior, and basal septal akinesis., Moderate to severe MR, mild TR PA systolic of 53 mmHg
Plan:
She continues to do well
She was on oxygen earlier but that has been discontinued
She had A-fib which spontaneously converted to sinus rhythm this morning
She had been on amiodarone for afib in 2011 after her lung surgery and this was subsequently stopped
She is at high risk of recurrent A-fib and will restart amiodarone given borderline blood pressure in the 90s
we will start with amiodarone loading at 200 mg p.o. 3 times daily
ECG reviewed by me with inferior and lateral ST changes and Troponin is up to 0.535. Patient with known AGRICULTURE SCIENCE TEACHER RCA and previous Circ stent in 2010 LAD PCI 11/05/22.
[place] possibly due to Takotsubo with reduced ejection fraction but cannot exclude ischemic event with possible new regional and anterior septum and basal septal black
Elected to treat medically for now
Consider recheck echocardiogram as an outpatient and possible ischemic evaluation
Continue Plavix and Eliquis. Aspirin was discontinued.
Discussed with leasing professional and okay for transfer to telemetry
PREADMIT DATA
-Patient came [facility] last night with increased SOB and cardiology is now consulted for acute HF. Patient was visiting a friend at the hospital when she started with increasing SOB and appeared to be in respiratory distress. Patient was intubated
and central line placed in ER. Patient briefly on Levophed, but drips weaned and patient extubated this morning. Courier Delivery Driver is following and there is concern for acute HF. pro-BNP was only 3110 on admission and has previously been as high as 9280
during acute HF admissions. Initial Troponin was 0.348 and has trended up to 0.535. ECG with inferior and lateral ST changes in SR. Patient with complex PMH including left upper lobe resection for stage IA non-small cell lung cancer 06/2011 and right
upper lobe VATS resection of a�stage I non-small cell lung cancer, coronary artery disease with unsuccessful PCI of a long segment AGRICULTURE SCIENCE TEACHER of the right coronary artery in 2010 and 3.0 x 12 mm Vision stent to the mid circumflex then LAD PCI 11/05/22,
paroxysmal atrial fibrillation on Eliquis and bladder mass for which she underwent a resection for and continues to follow-up with urology along with iron deficiency anemia.Previously patient has had moderate to severe to severe MR, but by GEORGINA
07/10/22 the MR was moderate.
Progress Note - Handkerchief Maker
Subjective
Date of Service: July 23, 2023
No complaints.
Objective
Labs:
07/23/23 04:21
07/23/23 04:21
Labs
Hgb 10.7 g/dL (12.0-16.0) L 07/23/23 04:21
Hct 34.5 % (37.0-47.0) L 07/23/23 04:21
Plt Count 595 10^3/uL (130-400) H 07/23/23 04:21
PT 15.7 Sec (11.4-14.6) H 07/22/23 00:36
INR 1.27 07/22/23 00:36
APTT 42.1 Sec (23.4-35.0) H 07/22/23 00:36
Sodium 137 mmol/L (135-145) 07/23/23 04:21
Potassium 4.2 mmol/L (3.5-5.1) 03/12/24 04:21
BUN 19 mg/dl (7-17) H 07/23/23 04:21
Creatinine 1.2 mg/dL (0.6-1.0) H 07/23/23 04:21
Glucose 164 mg/dl (70-99) H 07/23/23 04:21
Troponins
07/21/23 07/21/23 07/22/23
19:58 21:57 00:36
Troponin I < 0.012 Cancelled 0.348 H* D
07/22/23 07/22/23 07/23/23
06:11 11:39 04:21
Troponin I 0.429 H* 0.535 H* 0.410 H*
Vital Signs and I&O:
Vital Signs
Temp Pulse Resp BP Pulse Ox
99.4 F 88 20 98/57 95
07/23/23 14:51 07/23/23 14:51 07/23/23 14:51 07/23/23 14:51 07/23/23 14:51
Vital Signs
Temp Pulse Resp BP Pulse Ox
99.4 F 88 20 98/57 95
07/23/23 14:51 07/23/23 14:51 07/23/23 14:51 07/23/23 14:51 07/23/23 14:51
Intake & Output
07/21/23 07/22/23 07/23/23 07/24/23
06:59 06:59 06:59 06:59
Intake Total 350.5 / 368.0 850.0 / 1090.0 810 / 810
Output Total 705 / 780 1875 / 2075 580 / 580
Balance -354.5 / -412.0 -1025.0 / -985.0 230 / 230
Physical Exam
Physical Exam
General: Well developed, well nourished in NAD.
Neck: Supple, no JVD, HJR, carotids +2 B/L, no bruits bilaterally.
Heart: Non displaced PMI, RRR, no murmurs, No S3, S4, no rubs.
Lungs: Scattered rhonchi
Abdomen: Normal bowel sounds, soft, non-tender, non-distended.
Extremities: No clubbing, cyanosis or edema bilaterally.
Neuro: Grossly nonfocal, awake, alert and oriented x3.
[2023-07-23] MEDS: UNASYN IV ×2 (15:24→20:07)
[2023-07-23] MEDS: PACERONE 200 MG PO ×2 (15:25→20:05)
--- NOTE | 2023-07-23 19:43 | PTCARENOTE ---
received patient. oriented x3. cochlear implants in place. afib on monitor, HR 130s-150s with spikes up to 180s. PRN lopressor ordered and given, see MAR. frequent productive cough. on RA, denies SOB, satting 95%. protective foams intact. pt
repositions self in bed. tele level of care. plan of care ongoing.
[2023-07-23] MEDS: PROZAC 20 MG PO (20:07)
--- NOTE | 2023-07-23 20:53 | PTCARENOTE ---
2049- pt converted back to SR on monitor, HR 90s.
[2023-07-24] VITALS (16 sets, daily range): BP systolic 91–134; BP diastolic 59–82; PULSE 84–115; O2SAT 95–98; BMI 22.9; BMI 22.2
--- NOTE | 2023-07-24 01:00 | PTCARENOTE ---
pt reassessed. resting comfortably in bed. afib on monitor at this time, HR 120s. pt denies SOB or pain. repositions self in bed. plan of care ongoing.
[2023-07-24] MEDS: LOPRESSOR 5 MG IV (01:51)
[2023-07-24] MEDS: UNASYN IV ×4 (05:12→21:12)
--- NOTE | 2023-07-24 05:30 | PTCARENOTE ---
patient reassessed. remains in afib, HR 100-110s. denies pain or SOB. OOB with supervision to commode. AM labs sent. care ongoing.
[2023-07-24 05:39] LABS: % Basophils 0.6 % (0-2); % Eosinophils 0.1 % (0-6); % Immature Granulocytes 1.9 % (0-0.5); % Lymphocytes 5.7 % (20.5-51.1); % Monocytes 5.1 % (1.7-9.3); % Neutrophils 86.6 % (42.2-75.2); Absolute Basophils 0.1 10^3/uL (0-0.2); Absolute Immature Granulocytes 0.4 10^3/uL (0-0.05); Absolute Lymphocytes 1.3 10^3/uL (1.2-3.4); Absolute Monocytes 1.2 10^3/uL (0.1-0.6); Absolute Neutrophils 19.9 10^3/uL (1.4-6.5); Hematocrit 32.8 % (37.0-47.0); Hemoglobin 10.3 g/dL (12.0-16.0); Mean Corp Hgb Conc. 31.4 g/dL (33.0-37.0); Mean Corpuscular Hgb 22.1 pg (27.0-31.0); Mean Corpuscular Volume 70.2 fL (81.0-99.0); Platelet Count 492 10^3/uL (130-400); Red Blood Cell Count 4.67 10^6/uL (4.20-5.40); Red Cell Dist. Width 28.1 % (11.5-14.5)
[2023-07-24 06:02] LABS: ALT (SGPT) 24 U/L (0-35); AST (SGOT) 42 U/L (14-36); Albumin 3.3 g/dl (3.5-5.0); Alkaline Phosphatase 93 U/L (38-126); Blood Urea Nitrogen 23 mg/dl (7-17); Calcium 8.8 mg/dl (8.4-10.2); Carbon Dioxide 23 mmol/L (22-30); Chloride 108 mmol/L (98-107); Estimated Creatinine Clearance 33 ml/min; Glucose 110 mg/dl (70-99); Sodium 134 mmol/L (135-145); Total Bilirubin 0.9 mg/dl (0.2-1.3); Total Protein 5.7 g/dl (6.3-8.2); Triglycerides 185 mg/dl (10-149); eGFR 40.73
[2023-07-24] MEDS: PROTONIX 40 MG PO (08:07)
[2023-07-24] MEDS: PACERONE 200 MG PO ×3 (08:07→20:03)
[2023-07-24] MEDS: PLAVIX 75 MG PO (08:07)
[2023-07-24] MEDS: TOPROL XL 12.5 MG PO ×2 (08:07→20:01)
[2023-07-24] MEDS: ELIQUIS 5 MG PO ×2 (08:08→20:03)
[2023-07-24] MEDS: TYLENOL 650 MG PO ×2 (08:08→16:36)
[2023-07-24] MEDS: ZOFRAN 4 MG IV (08:08)
--- NOTE | 2023-07-24 09:06 | W.PN.CARDCBS ---
Today's Communication / Plan
-
Continues to slowly improve. Back in sinus rhythm.
Continue amiodarone load 20 mg p.o. 3 times daily. Continue metoprolol.
Continue Eliquis and Plavix.
Creatinine at 1.4. Continue to follow.
Restart atorvastatin and Zetia.
Impression / Plan
-
PCP: Dr. Kwon
Cardiology: Dr. Meléndez
Impression:
Acute hypoxic respiratory failure
intubated in the ER 07/21/23, extubated 07/22/23
PNA, B/L lower lobes
Sepsis and shock
Paroxysmal AF, atrial fibrillation 07/23/2023 which spontaneously converted to sinus rhythm
Ischemic cardiomyopathy with ejection fraction ranging from 35-50% depending on modality
CAD
Circumflex stent 2010
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
s/p 3.0 mm Ino FAHAD to mid LAD 11/05/22
Mod MR
mod to sev 2010, mod in 2017 and 2020, sev on cath 06/2022, mod on GEORGINA 06/2022
Chronic Eliquis OAC
Anemia
Resection of bladder tumor 07/16/22
History of lung cancer with bilateral lobectomies
Carotid stenosis
Echo 02/27/21: LV: Normal size and function.� EF 50-55%.� Possible basal inferior HK.� RV: Normal, LA: Severely dilated, RA: Normal, MV: Moderate MR, AV: Sclerotic.� Trace AI.� TV: Mild TR with PAP 25 mmHg
Echo 07/07/22: LV: EF 35%.� Global HK with severe HK to akinesis of the basal and mid inferior and inferolateral segments.� Severe HK of the basal and mid anterior and anteroseptal.� Stage II diastolic dysfunction.� RV: Mildly dilated, LA: Severely
dilated, RA: Mildly dilated, MV: Mild to moderate eccentric MR, AV: Trace AI.� TV: Mild TR with PAP 43
GEORGINA 07/10/22: LV: Mildly reduced EF estimated 45-50%.� RV: Dilated, LA: Dilated, RA: Dilated, GEORGI: No thrombus, MV: Prolapse of A3-P3 segments with moderate eccentric MR.� ERO 0.2 cm� and regurgitant volume 32 by PISA method.� AV: Trace AI, TV: Mild
TR with PAP 32 mmHg
Echo 03/20/23: EF 45%, hypokinesis basal to mid anteroseptal, basal to mid inferior and inferolateral black, stage I diastolic dysfunction, mod MR
Echocardiogram 07/22/2023: Ejection fraction 30 to 35%, global hypokinesis with anteroseptal, basal inferior, and basal septal akinesis., Moderate to severe MR, mild TR PA systolic of 53 mmHg
Plan:
Back in sinus rhythm this morning. Continue amiodarone load 200 mg p.o. 3 times daily.
ECG reviewed by me with inferior and lateral ST changes and Troponin is up to 0.535. 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
[place] possibly due to Takotsubo with reduced ejection fraction but cannot exclude ischemic event with possible new regional and anterior septum and basal septal black
We will continue medical therapy for coronary arteries for now. Will consider cardiac cath as outpatient versus repeat echo/stress test
Continue Plavix and Eliquis. Aspirin was discontinued.
Restart atorvastatin 80 mg daily and Zetia 10 mg daily
PREADMIT DATA
-Patient came to [facility] last night with increased SOB and cardiology is now consulted for acute HF. Patient was visiting a friend at the hospital when she started with increasing SOB and appeared to be in respiratory distress. Patient was intubated
and central line placed in ER. Patient briefly on Levophed, but drips weaned and patient extubated this morning. Driller Brake Lining is following and there is concern for acute HF. pro-BNP was only 3110 on admission and has previously been as high as 9280
during acute HF admissions. Initial Troponin was 0.348 and has trended up to 0.535. ECG with inferior and lateral ST changes in SR. Patient with complex PMH including left upper lobe resection for stage IA non-small cell lung cancer 06/2011 and right
upper lobe VATS resection of a�stage I non-small cell lung cancer, coronary artery disease with unsuccessful PCI of a long segment SOFTWARE TEAM LEADER of the right coronary artery in 2010 and 3.0 x 12 mm Vision stent to the mid circumflex then LAD PCI 11/05/22,
paroxysmal atrial fibrillation on Eliquis and bladder mass for which she underwent a resection for and continues to follow-up with urology along with iron deficiency anemia.Previously patient has had moderate to severe to severe MR, but by GEORGINA
07/10/22 the MR was moderate.
Progress Note - Chair Car Attendant
Subjective
Date of Service: July 24, 2023
She continues to improve. She denies any chest pains. Breathing is better. She does feel some palpitations with the atrial fibrillation.
Objective
Labs:
07/24/23 05:18
07/24/23 05:18
Labs
Hgb 10.3 g/dL (12.0-16.0) L 07/24/23 05:18
Hct 32.8 % (37.0-47.0) L 07/24/23 05:18
Plt Count 492 10^3/uL (130-400) H 07/24/23 05:18
PT 15.7 Sec (11.4-14.6) H 07/22/23 00:36
INR 1.27 07/22/23 00:36
APTT 42.1 Sec (23.4-35.0) H 07/22/23 00:36
Sodium 134 mmol/L (135-145) L 07/24/23 05:18
Potassium 5.0 mmol/L (3.5-5.1) 07/24/23 05:18
BUN 23 mg/dl (7-17) H 07/24/23 05:18
Creatinine 1.4 mg/dL (0.6-1.0) H 07/24/23 05:18
Glucose 110 mg/dl (70-99) H 07/24/23 05:18
Troponins
07/21/23 07/21/23 07/22/23
19:58 21:57 00:36
Troponin I < 0.012 Cancelled 0.348 H* D
07/22/23 07/22/23 07/23/23
06:11 11:39 04:21
Troponin I 0.429 H* 0.535 H* 0.410 H*
Vital Signs and I&O:
Vital Signs
Temp Pulse Resp BP Pulse Ox
98.8 F 120 17 101/82 96
07/24/23 07:42 07/24/23 08:07 07/24/23 08:00 07/24/23 08:07 07/24/23 08:45
Vital Signs
Temp Pulse Resp BP Pulse Ox
98.8 F 120 17 101/82 96
07/24/23 07:42 07/24/23 08:07 07/24/23 08:00 07/24/23 08:07 07/24/23 08:45
Intake & Output
07/22/23 07/23/23 07/24/23 07/25/23
06:59 06:59 06:59 06:59
Intake Total 350.5 / 368.0 850.0 / 1090.0 1874 / 1874 240 / 240
Output Total 705 / 780 1874 / 2074 580 / 580
Balance -354.5 / -412.0 -1025.0 / -985.0 1295 / 1295 240 / 240
Physical Exam
Physical Exam
GEN: No distress, awake, Ox3
HEENT: supple, anicteric, mmm
LUNGS: Scattered rhonchi
CV: Reg, S1/S2, 1/6 syst LSB, no gallop
ABD: soft, BS+, NT/ND
EXT: No edema
NEURO: Gross non-focal
SKIN: No rash
--- NOTE | 2023-07-24 10:32 | W.PN.INTV ---
Documented by User: Marilu Serrano MD, Resident 07/24/23 11:04
Today's Communication / Plan
Recommendations
Continue antibiotics
Restarted on atorvastatin and ezetimibe
Pantoprazole 40 mg per oral
Assessment
-
68-year-old woman with past medical history noted which is extensive. Admitted to the hospital with acute respiratory distress requiring intubation. Reportedly the patient was doing well prior to this. Acutely decompensated. She was in the
hospital visiting a friend who was sick.
Acute hypoxemic respiratory failure requiring intubation on mechanical ventilation
Extubated 07/23/2023
Suspect acute decompensation more from pulmonary edema.
Cannot rule out pneumonia.
CT chest 07/21/2023: Reviewed by me, showed no evidence for pulmonary embolism. Bilateral infiltrate consistent with pulmonary edema. Cannot rule out pneumonia.
Leukocytosis: Chronic/part of his reactive.
Shock: Possibly post intubation and sedation, cannot rule out septic component.
Lactic acidosis
Acute kidney injury
Conditions present prior admission:
Anxiety/depression
Severe MR
Chronic kidney disease stage III
Chronic heart failure with reduced ejection fraction
Paroxysmal atrial fibrillation
History of bladder cancer status post TURBT
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
History of coronary artery disease and carotid disease status post stents
Hypertension
Bilateral lung cancer status post resections twice, 11 years ago on 7 years ago.
History of cochlear implant
History of right femur ORIF
Right radial pseudoaneurysm repair
Former smoker
Echocardiogram 03/20/2023: Report reviewed, showed left ventricle mildly dilated. Mild LVH. Left ventricular ejection fraction 45%. Hypokinesis in the basal and mid anteroseptal and basal to mid inferior lateral black. Stage I diastolic
dysfunction. Normal right ventricular size and function. Dilated right atrium. Moderate MR. Mild TR.
Echo 07/22/2023: Normal left ventricular chamber size. Moderately reduced left ventricular systolic function. Left ventricular ejection fraction is 30-35% by cohen's�method.� Global hypokinesis with anterior septal, basal inferior, and basal septal
akinesis. � The distal septum may be akinetic as well.� Normal LV wall thickness. Stage II diastolic dysfunction suggestive of abnormal relaxation and increased filling pressures. Mitral sclerosis without stenosis. Moderate to severe mitral
regurgitation. Indexed LA volume is severely abnormal (> 48 mL/m2). Structurally normal tricuspid valve. Tricuspid valve opens normally. Mild tricuspid regurgitation.� PA systolic pressure 5 mmHg assuming a right atrial pressure of 8 mmHg.
Assessment and plan:
- Acute hypoxemic respiratory failure, requiring mechanical ventilation
Extubated 07/22/2023.
No stridor on exam
On room air, SpO2 96%
-Aspiration pneumonia/pneumonitis-vomiting during acute event in the emergency room: She has chronic leukocytosis. Low-grade fever noted.
MRSA screening negative-vancomycin discontinued
WBC at 23 today
Currently on Unasyn
Once able to take orals may use Augmentin.
Complete total of 5 days of antibiotics.
Chest x-ray 07/23/2023-bilateral lower lobe pneumonia, similar to to previous x-rays.
Need outpatient follow-up to document resolution of infiltrates.
Shock: Resolved. Levophed has been discontinued
Arterial line has been discontinued
Creatinine trending lower
Lactic acid has cleared
Right IJ central line has been discontinued.
Suspected acute on chronic heart failure with reduced ejection fraction.
proBNP on admission 3110.
CT chest: Bilateral groundglass opacities with mosaic perfusion suggestive of pulmonary edema.
possible Takotsubo cardiomyopathy based on echocardiogram. Ejection fraction is slightly lower compared to prior.
Mild troponin increase: Non-TN.
Heart rate improved
Medications been adjusted
At this point no need for aggressive diuresis.
Continue Eliquis/Plavix
Hold aspirin for now. Patient was not taking in the outpatient setting.
Rapid atrial fibrillation 07/23/2023 spontaneously converted to sinus rhythm
Patient reports some palpitations with atrial fibrillation, had an episode yesterday night with heart rate in 150s
Amiodarone 200 mg per oral twice daily, started yesterday
Continue metoprolol
DVT prophylaxis on anticoagulation
Subjective Dataa
Subjective Data
Date of Service:
Date of Service: July 24, 2023
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
Review of Systems
Cardiopulmonary: Cough and Sputum Production
GI: Abdominal Pain
Objective Data
Data Reviewed
Vital Signs / I&O / Oxygen:
Vital Signs
Temp Pulse Resp BP Pulse Ox
98.8 F 120 17 101/82 96
07/24/23 07:42 07/24/23 08:07 07/24/23 08:00 07/24/23 08:07 07/24/23 08:45
Intake and Output
07/23/23 07/24/23 07/25/23
06:59 06:59 06:59
Intake Total 850.0 / 1090.0 1875 / 1875 240 / 240
Output Total 187 / 5 580 / 580
Balance -1025.0 / -985.0 1295 / 1295 240 / 240
SaO2 [CPAP/PSV] 98
SaO2 [A/C] 98
SaO2 96
Nasal Cannula flow liters per 2
minute
Physical Exam
General: Comfortable
HEENT: Normocephalic and Anicteric
Cardiovascular: S1-S2 and Regular Rhythm
Respiratory: Wheeze and Non-Labored Respirations
GI: Soft and Non Distended
Neurology: Awake, Alert, Oriented and No Motor Deficits
Skin: Warm and Dry
Labs/Micro/Reports
Lab Data
07/24/23 05:18
07/24/23 05:18
Microbiology
07/23/23 20:04 Throat/Pharynx Gram Stain - Preliminary
07/21/23 20:30 Blood/Venous Blood Culture - Preliminary
No Growth in 48 hours- Final report to follow
07/21/23 20:30 Blood/Venous Blood Culture - Preliminary
No Growth in 48 hours- Final report to follow
07/22/23 10:32 Nose Nasal Screen MRSA (PCR) - Final
MRSA not detected - performed by PCR methodology.
07/21/23 21:03 Nasal Swab Influenza Types A & B (MELANIE) - Final
Negative for Influenza A & B, NAAT
Negative results must be combined with clinical observations
and patient history.
Nucleic Acid Amplification test (NAAT)performed on the
[employer] platform.

Documented by User: Capo Santiago MD 07/24/23 12:00
Today's Communication / Plan
Recommendations
Continue antibiotics complete total 5 days.
Continue cardiac management per cardiology-heart rate control
Pantoprazole 40 mg per oral
Outpatient pulmonary follow-up
Sign off
Assessment
-
68-year-old woman with past medical history noted which is extensive. Admitted to the hospital with acute respiratory distress requiring intubation. Reportedly the patient was doing well prior to this. Acutely decompensated. She was in the
hospital visiting a friend who was sick.
Acute hypoxemic respiratory failure requiring intubation on mechanical ventilation
Extubated 07/23/2023
Suspect acute decompensation more from pulmonary edema.
Cannot rule out pneumonia.
CT chest 07/21/2023: Reviewed by me, showed no evidence for pulmonary embolism. Bilateral infiltrate consistent with pulmonary edema. Cannot rule out pneumonia.
Leukocytosis: Chronic/part of his reactive.
Shock: Possibly post intubation and sedation, cannot rule out septic component.
Lactic acidosis
Acute kidney injury
Conditions present prior admission:
Anxiety/depression
Severe MR
Chronic kidney disease stage III
Chronic heart failure with reduced ejection fraction
Paroxysmal atrial fibrillation
History of bladder cancer status post TURBT
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
History of coronary artery disease and carotid disease status post stents
Hypertension
Bilateral lung cancer status post resections twice, 11 years ago on 7 years ago.
History of cochlear implant
History of right femur ORIF
Right radial pseudoaneurysm repair
Former smoker
Echocardiogram 03/20/2023: Report reviewed, showed left ventricle mildly dilated. Mild LVH. Left ventricular ejection fraction 45%. Hypokinesis in the basal and mid anteroseptal and basal to mid inferior lateral black. Stage I diastolic
dysfunction. Normal right ventricular size and function. Dilated right atrium. Moderate MR. Mild TR.
Echo 07/22/2023: Normal left ventricular chamber size. Moderately reduced left ventricular systolic function. Left ventricular ejection fraction is 30-35% by cohen's�method.� Global hypokinesis with anterior septal, basal inferior, and basal septal
akinesis. � The distal septum may be akinetic as well.� Normal LV wall thickness. Stage II diastolic dysfunction suggestive of abnormal relaxation and increased filling pressures. Mitral sclerosis without stenosis. Moderate to severe mitral
regurgitation. Indexed LA volume is severely abnormal (> 48 mL/m2). Structurally normal tricuspid valve. Tricuspid valve opens normally. Mild tricuspid regurgitation.� PA systolic pressure 5 mmHg assuming a right atrial pressure of 8 mmHg.
Assessment and plan:
- Acute hypoxemic respiratory failure, requiring mechanical ventilation-resolved.
Extubated 07/22/2023.
No stridor on exam
On room air, SpO2 96%
-Aspiration pneumonia/pneumonitis-vomiting during acute event in the emergency room: She has chronic leukocytosis. Low-grade fever noted.
MRSA screening negative-vancomycin discontinued
WBC at 23 today-patient has chronic leukocytosis.
Fever resolved.
Currently on Unasyn
Once able to take orals may use Augmentin.
Complete total of 5 days of antibiotics.
Chest x-ray 07/23/2023-bilateral lower lobe pneumonia, similar to to previous x-rays.
Need outpatient follow-up to document resolution of infiltrates. Information will be left in the chart.
Shock: Resolved. Levophed has been discontinued
Arterial line has been discontinued
Creatinine trending lower
Lactic acid has cleared
Right IJ central line has been discontinued.
Suspected acute on chronic heart failure with reduced ejection fraction.
proBNP on admission 3110.
CT chest: Bilateral groundglass opacities with mosaic perfusion suggestive of pulmonary edema.
possible Takotsubo cardiomyopathy based on echocardiogram. Ejection fraction is slightly lower compared to prior.
Mild troponin increase: Non-TN.
Heart rate improved
Medications been adjusted
At this point no need for aggressive diuresis.
Continue Eliquis/Plavix
Hold aspirin for now. Patient was not taking in the outpatient setting.
Rapid atrial fibrillation 07/23/2023 spontaneously converted to sinus rhythm
Patient reports some palpitations with atrial fibrillation, had an episode yesterday night with heart rate in 150s
Amiodarone 200 mg per oral twice daily, started yesterday per cardiology.
Continue metoprolol
DVT prophylaxis on anticoagulation
No additional recommendations from the pulmonary/critical care perspective.
Information will be left in the chart to follow-up in our office in about 2 to 3 weeks.
Sign off
Subjective Dataa
Subjective Data
Subjective:
Patient complains of minimal coughing. No hemoptysis or phlegm production.
Denies lightheadedness
Denies shortness of breath at rest
Continues to report some epigastric discomfort.
--- NOTE | 2023-07-24 12:38 | PTCARENOTE ---
Hospitalist team at bedside. Updated assessment, vital signs ongoing and as documented. Patient presently in NSR rate 88bpm. No c/c to offer except fatigue and sob with ambulation. Presently at rest denies complaints. Continue antibiotics. Update
plan of cares. PT/OT working with patient OOB chair at this assessment.
--- NOTE | 2023-07-24 15:16 | PTCARENOTE ---
Patient in and out of bed several times thru day and for lunch. Plan to ambulate and be out of bed to chair for dinner. Presently returned to bed to nap. Continue with teaching, encourage, incentive spirometer and cough deep breath while awake.
Continue with teaching, supportive cares and emotional support. Follow up assessment trends unchanged.
--- NOTE | 2023-07-24 16:12 | CM ---
CM reviewed chart, patient seen bedside sleeping. PT/OT recommending home health. CM will return to discuss with patient as patient is asleep. CM will continue to follow for discharge planning needs.
Plan; home with VN pending VN agency.
--- NOTE | 2023-07-24 18:09 | W.PN.HOSP.TC ---
Addendum entered and electronically signed by Rocky Maharaj MD 07/24/23 23:08:
Attending Addendum-
I saw and evaluated the patient. I reviewed the resident�s note and agree with findings and plan as documented in the resident�s note. no further diarrhea, went into rapid afib overnight and given amiodarone and reverted back to sinus. was
symptomatic during events. currently no complaints Exam: Heart RRR lungs rhonchi @ bases b/l abd soft NT ND pos BS LE trace edema
Plan:
# Acute Hypoxemic Respiratory Failure- resolved, wean o2 for sats > 94%, intubated on admission, extubated 07/21
# Sepsis secondary to b/l PNA- possible aspiration event, CXR personally reviewed, cont unasyn check sputum cx check labs in am may need repeat cxr as OP speech eval
# Leukocytosis- persists check ua reflex cx sputum cx mixed, blood cx neg possible chronic
# Diarrhea- resolved
# A fib with RVR- episodes overnight, now in sinus cont amiodarone TID per cards cont metoprolol possible CV during hospital stay, cont eliquis
# Ischemic CM vs Takosubo- cath vs repeat echo as OP cont to monitor cards on board cont meds
# CAD- cont meds
# HLD- restart meds
Dispo Transfer to tele
Time spent coordinating care, review of plan of care with resident, review of records, med rec, consults, notes, labs, rads, d/w nursing, cards, ICU - 57 mins
Original Note:
Documented by User: Shashi Trinidad MD, Resident 07/24/23 18:17
Today's Communication/Plan
-
incentive spirometry
speech eval
urine culture
Assessment / Plan
Assessment / Plan
A/P:� Patient is a 68y F with PMH significant for ASCVD, lung cancer s/p bilateral upper lobectomies, A-Fib and P vera who presents to ED in respiratory distress.
Patient went into rapid afib twice last night and was given amiodarone which helped convert to sinus rhythm.
Acute Hypoxemic Respiratory Failure
- resolved
�- transfer to tele
�- Extubated 07/21
�- Investigate potential etiologies of her sudden decompensation.
�- Possibility of PE / VTE seems very low in patient on triple therapy with ASA, Plavix and Eliquis.
�- Meal Packer evaluation.
Afib with RVR
- converted to sinus rhythm
- Started Amiodarone 200 mg 3 times a day per cardio
- cardiology will talk to patient to adjust medication
-repeat echo and stress test outpatient cardiology
Bilateral Lower Lobe Pneumonia
Septic Shock secondary to the above
Lactic Acidosis secondary to the above
�- Patient presents with leukocytosis, tachycardia and tachypnea and CXR evidence of patchy lower lobe opacities c/w pneumonia.
�- Evidence of life-threatening organ dysfunction in the form of acute hypoxemic respiratory failure as noted above.
�- Family denies any recent respiratory symptoms.�
�- COVID / influenza negative in the ED.
�- Cell count abnormalities may be combination of known MDS / P vera and acute stress.
�- Will continue to cover with broad spectrum abx for now pending further evaluation.
�- Follow up culture data and adjust regimen as needed.
�- Continue supportive care including IVFs, pressor support, etc.
�- Continue to investigate other possible causes of respiratory failure as noted below.
- Procalcitonin elevated, WBC rising.
- IV Zosyn day 2, talked to the ICU resident about the plan. Switching to Unasyn as Zosyn has increased risk of aspirational pneumonia, then to finally switch to PO
- repeat CXR to see for worsening pneumonia
- incentive spirometry
- speech eval
Diarrhea:
- checking C diff antigen for abx related diarrhea.
- cartwright out, denies diarrhea, vomiting since 24 hours
ASCVD
Chronic HFrEF
Paroxysmal Atrial Fibrillation
�- Check / follow serial troponin to rule out new ischemia.
�- ? Takotsubo's scenario with significant social stressors / friend's recent passing / etc.
�- EKG done in the ED shows non-specific lateral T wave changes.
�- Check / update Echo - last in 04/04 with EF = 45% and moderate MR - improved from prior.
- Talked to intensivists, cardiology consulted.
�- Hold diuretics for now given hypotension / apparent sepsis.
�- Patient has no edema at all on exam and does not appear overloaded.
�- BNP is lowest in quite some time for her.
�- Consider Cardiology evaluation if abnormal troponin, echo, etc.
�- Continue Eliquis for stroke risk reduction.
�- Continue DAPT (most recent stent was October 2022).
- - On eliquis and plavix. ASA stopped per cardio. Plavix until October 2023
Polycythemia vera
�- Increased WBC and platelets which seem very reactive in nature.
�- Follow for changes / improvement.
�- Patient is not on any specific medication - beyond antiplatelets - according to her daughter.
�- Follow for changes in cell counts.
�- Continue DAPT.
�- Consider Hematology evaluation if cell counts increase or do not improve.
Benign Hypertension
�- BP markedly elevated on arrival and then became hypotensive following sedation / intubation.
�- IVF boluses administered.� Now on Levophed for BP support.
�- TLC placed in the ED.
�- Hold OP BP medications pending improvement in sepsis / shock.
GERD / Husain's Esophagus
�- Stable.� Continue daily PPI.
History of Bladder Cancer
�- Stable.� Prior TURBT and BCG therapy.
�- Last cysto was 02/2023 and biopsy was normal at that time.
�
History of Lung Cancer
�- s/p bilateral upper lobectomies - most recent was 7 years ago.
�- No recent symptoms or issues in this regard.
�- CXR without evidence of mass, etc.
Anxiety / Depression
�- Very anxious - especially today - according to her daughter.
�- Hold OP meds for now.
�- Currently on sedation protocol which should manage her acute anxieties.
DVT Prophylaxis:� On Eliquis
Diet - started on regular diet.
Anticipated Discharge: 24 - 48 hours
Subjective/Interval History
-
Date of Service: July 24, 2023
Objective Data
-
Vital Signs:
Vital Signs
Temp Pulse Resp BP Pulse Ox
97.7 F 80 18 134/81 97
07/24/23 16:25 07/24/23 16:47 07/24/23 16:47 07/24/23 16:47 07/24/23 16:48
I&O
07/23/23 07/24/23 07/25/23
06:59 06:59 06:59
Intake Total 850.0 / 1090.0 1875 / 1875 480 / 480
Output Total 1874 / 2074 580 / 580
Balance -1025.0 / -985.0 1295 / 1295 480 / 480
Review of Systems
-
All other systems: Reviewed and negative (except mentioned )
Respiratory: Reports Trouble Breathing (with exertion )
Physical Exam
-
General: Comfortable
HEENT: Normocephalic and Atraumatic
Respiratory: Clear to Auscultation
Cardiac: Regular Rhythm and S1/S2
Breast: Deferred by me
GI: Soft, Nontender and Nondistended
Genito-urinary: Clear Urine
Musculoskeletal: No Edema
Skin: Warm and Dry
Neuro: Awake, Alert and Oriented
Hematologic / Lymphatic: No Lymphadenopathy
Psych: Calm
Data Reviewed
-
Diagnostic Radiology: Report Reviewed by me and Discussed with Physician
Labs: Labs Reviewed by me and Discussed with Physician

Documented by User: Rocky Maharaj MD 07/24/23 22:52
Assessment / Plan
Assessment / Plan
Anticipated Discharge: > 48 hours
Review of Systems
-
Cardiac: Reports Palpitations
Abdomen/GI: Reports No Symptoms
Genitourinary: Reports No Symptoms
[2023-07-24] MEDS: LIPITOR 80 MG PO (18:28)
--- NOTE | 2023-07-24 19:43 | PTCARENOTE ---
received patient. oriented x3. denies pain. SR on monitor, HR 80s. coarse breath sounds, on RA, denies SOB. eating dinner in bed. OOB with supervision. repositions self in bed. hygiene done by patient. Tele level of care. care ongoing.
[2023-07-24] MEDS: ZETIA 10 MG PO (20:01)
[2023-07-24] MEDS: PROZAC 20 MG PO (20:01)
--- NOTE | 2023-07-24 20:25 | PTCARENOTE ---
report called to Jason on . VS documented. HS meds given.
--- NOTE | 2023-07-24 20:39 | TRANSFER ---
Pt received from ICU to rm [id number]. Pt oriented to room and call mcclure.
[2023-07-25] VITALS (7 sets, daily range): BP systolic 110–137; BP diastolic 67–82; PULSE 90; O2SAT 99; BMI 22.5
[2023-07-25] MEDS: UNASYN IV ×4 (04:49→21:51)
[2023-07-25 08:45] LABS: % Basophils 0.6 % (0-2); % Eosinophils 0.4 % (0-6); % Immature Granulocytes 2.5 % (0-0.5); % Lymphocytes 6.7 % (20.5-51.1); % Neutrophils 84.8 % (42.2-75.2); Absolute Basophils 0.1 10^3/uL (0-0.2); Absolute Eosinophils 0.1 10^3/uL (0-0.7); Absolute Immature Granulocytes 0.4 10^3/uL (0-0.05); Absolute Lymphocytes 1.1 10^3/uL (1.2-3.4); Absolute Monocytes 0.8 10^3/uL (0.1-0.6); Absolute Neutrophils 13.4 10^3/uL (1.4-6.5); Hematocrit 30.5 % (37.0-47.0); Hemoglobin 9.4 g/dL (12.0-16.0); Mean Corp Hgb Conc. 30.8 g/dL (33.0-37.0); Mean Corpuscular Hgb 21.9 pg (27.0-31.0); Mean Corpuscular Volume 71.1 fL (81.0-99.0); Nucleated Red Blood Cells % 0.7 %; Platelet Count 465 10^3/uL (130-400); Red Blood Cell Count 4.29 10^6/uL (4.20-5.40); Red Cell Dist. Width 28.5 % (11.5-14.5); White Blood Cell Count 15.7 10^3/uL (4.8-10.8)
[2023-07-25] MEDS: TOPROL XL 12.5 MG PO ×2 (09:10→20:34)
[2023-07-25] MEDS: ELIQUIS 5 MG PO ×2 (09:11→20:35)
[2023-07-25] MEDS: PACERONE 200 MG PO ×3 (09:11→21:48)
[2023-07-25] MEDS: PLAVIX 75 MG PO (09:11)
[2023-07-25] MEDS: PROTONIX 40 MG PO (09:11)
--- NOTE | 2023-07-25 09:33 | W.PN.CARDCBS ---
Addendum entered and electronically signed by Deqaun Bennett MD 07/25/23 15:29:
I saw and examined the patient.
The Industrial Accountant's note was reviewed and I agree with the note.
Comment: 68-year-old woman past medical history of ischemic cardiomyopathy and paroxysmal atrial fibrillation who presented septic shock and acute hypoxic respiratory failure requiring intubation in the setting of pneumonia. Subsequently extubated
and weaned to room air. Continues on IV antibiotics for treatment of pneumonia.
In atrial fibrillation earlier in the hospitalization but has converted back to normal sinus rhythm, would continue amiodarone as planned
Lasix, lisinopril and SGLT2 all on hold -would add back stepwise as blood pressure improves
Original Note:
Today's Communication / Plan
-
Recheck ECG in AM
Cont amio load for now
Impression / Plan
-
PCP: Dr. Kwon
Cardiology: Dr. Meléndez
Impression:
Acute hypoxic respiratory failure
intubated in the ER 07/21/23, extubated 07/22/23
PNA, B/L lower lobes
Sepsis and shock
Paroxysmal AF, atrial fibrillation 07/23/2023 which spontaneously converted to sinus rhythm
Ischemic cardiomyopathy with ejection fraction ranging from 35-50% depending on modality
CAD
Circumflex stent 2010
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
s/p 3.0 mm [place] FAHAD to mid LAD 11/05/22
Mod MR
mod to sev 2010, mod in 2017 and 2020, sev on cath 06/2022, mod on GEORGINA 06/2022
Chronic Eliquis OAC
Anemia
Resection of bladder tumor 07/16/22
History of lung cancer with bilateral lobectomies 2011
Carotid stenosis
Echo 02/27/21: LV: Normal size and function.� EF 50-55%.� Possible basal inferior HK.� RV: Normal, LA: Severely dilated, RA: Normal, MV: Moderate MR, AV: Sclerotic.� Trace AI.� TV: Mild TR with PAP 25 mmHg
Echo 07/07/22: LV: EF 35%.� Global HK with severe HK to akinesis of the basal and mid inferior and inferolateral segments.� Severe HK of the basal and mid anterior and anteroseptal.� Stage II diastolic dysfunction.� RV: Mildly dilated, LA: Severely
dilated, RA: Mildly dilated, MV: Mild to moderate eccentric MR, AV: Trace AI.� TV: Mild TR with PAP 43
GEORGINA 07/10/22: LV: Mildly reduced EF estimated 45-50%.� RV: Dilated, LA: Dilated, RA: Dilated, GEORGI: No thrombus, MV: Prolapse of A3-P3 segments with moderate eccentric MR.� ERO 0.2 cm� and regurgitant volume 32 by PISA method.� AV: Trace AI, TV: Mild
TR with PAP 32 mmHg
Echo 03/20/23: EF 45%, hypokinesis basal to mid anteroseptal, basal to mid inferior and inferolateral black, stage I diastolic dysfunction, mod MR
Echo 07/22/23: Ejection fraction 30 to 35%, global hypokinesis with anteroseptal, basal inferior, and basal septal akinesis., Moderate to severe MR, mild TR PA systolic of 53 mmHg
Plan:
-Remains in SR on amiodarone 200 mg TID. Patient previously tolerated after initial diagnosis of Afib around the time of lung surgery in 2011. Patient has received a 1.2 gram load as of 07/25/23.
-ECG ordered and reviewed by me on 07/25/23 showed SR with QTc 497 ms. Recheck ECG in AM. Patient is also chronically on Prozac 20 mg daily
-Patient was taking Plavix 75 mg daily and Eliquis 5 mg BID at time of admission and these have been continued.
-Echo this admission with EF down to 30-35%, global hypokinesis with anteroseptal, basal inferior, and basal septal akinesis. Troponin peaked at 0.535. No chest pain. Patient with known SOLDERER ASSEMBLER RCA and previous Circ stent in 2010 LAD PCI 11/05/22. Will
consider cardiac cath as outpatient versus repeat echo/stress test. Will manage as a nonischemic myocardial injury Troponin elevation
-Outpatient doses of atorvastatin 80 mg daily and Zetia 10 mg daily have been continued
HPI: [facility] night with increased SOB and cardiology is now consulted for acute HF. Patient was visiting a friend at the hospital when she started with increasing SOB and appeared to be in respiratory distress. Patient was
intubated and central line placed in ER. Patient briefly on Levophed, but drips weaned and patient extubated this morning. Stoneworker is following and there is concern for acute HF. pro-BNP was only 3110 on admission and has previously been as high
as 9280 during acute HF admissions. Initial Troponin was 0.348 and has trended up to 0.535. ECG with inferior and lateral ST changes in SR. Patient with complex PMH including left upper lobe resection for stage IA non-small cell lung cancer 06/2011
and right upper lobe VATS resection of a�stage I non-small cell lung cancer, coronary artery disease with unsuccessful PCI of a long segment SOLDERER ASSEMBLER of the right coronary artery in 2010 and 3.0 x 12 mm Vision stent to the mid circumflex then LAD PCI
11/05/22, paroxysmal atrial fibrillation on Eliquis and bladder mass for which she underwent a resection for and continues to follow-up with urology along with iron deficiency anemia.Previously patient has had moderate to severe to severe MR, but by
GEORGINA 07/10/22 the MR was moderate.
Progress Note - High Climber
Subjective
Date of Service: July 25, 2023
She feels a bit better, no diarrhea today
Objective
Labs:
07/25/23 07:53
Labs
Hgb 9.4 g/dL (12.0-16.0) L 07/25/23 07:53
Hct 30.5 % (37.0-47.0) L 07/25/23 07:53
Plt Count 465 10^3/uL (130-400) H 07/25/23 07:53
PT 15.7 Sec (11.4-14.6) H 07/22/23 00:36
INR 1.27 07/22/23 00:36
APTT 42.1 Sec (23.4-35.0) H 07/22/23 00:36
Sodium 134 mmol/L (135-145) L 07/24/23 05:18
Potassium 5.0 mmol/L (3.5-5.1) 07/24/23 05:18
BUN 23 mg/dl (7-17) H 07/24/23 05:18
Creatinine 1.4 mg/dL (0.6-1.0) H 07/24/23 05:18
Glucose 110 mg/dl (70-99) H 07/24/23 05:18
Troponins
07/22/23 07/23/23
11:39 04:21
Troponin I 0.535 H* 0.410 H*
Vital Signs and I&O:
Vital Signs
Temp Pulse Resp BP Pulse Ox
98.4 F 80 19 120/81 98
07/25/23 07:30 07/25/23 07:30 07/25/23 07:30 07/25/23 07:30 07/25/23 07:30
Vital Signs
Temp Pulse Resp BP Pulse Ox
98.4 F 80 19 120/81 98
07/25/23 07:30 07/25/23 07:30 07/25/23 07:30 07/25/23 07:30 07/25/23 07:30
Intake & Output
07/23/23 07/24/23 07/25/23 07/26/23
06:59 06:59 06:59 06:59
Intake Total 850.0 / 1090.0 1874 1440 / 1440
Output Total 1874 580 / 580
Balance -1025.0 / -985.0 1295 / 1295 1440 / 1440
Physical Exam
Physical Exam
General: AAO x3
HEENT: EOMI
Heart: Reg
Lungs: No wheeze
Abd: +BS
Ext: No edema B/L
Neuro: nonfocal
[2023-07-25 09:36] LABS: Blood Urea Nitrogen 22 mg/dl (7-17); Calcium 8.5 mg/dl (8.4-10.2); Carbon Dioxide 24 mmol/L (22-30); Chloride 103 mmol/L (98-107); Estimated Creatinine Clearance 39 ml/min; Glucose 111 mg/dl (70-99); Sodium 136 mmol/L (135-145)
[2023-07-25 09:47] LABS: Urine Albumin Trace (Neg - Trace); Urine Bilirubin Negative (Negative); Urine Character Clear (Clear); Urine Color Yellow; Urine Glucose Negative (Negative); Urine Ketone Negative (Negative); Urine Leukocyte Negative (Negative); Urine Nitrite Negative (Negative); Urine Occult Blood Negative (Negative); Urine Urobilinogen Negative (Neg - 1+)
--- NOTE | 2023-07-25 13:30 | W.PN.HOSP.TC ---
Addendum entered and electronically signed by Rocky Maharaj MD 07/25/23 23:34:
Attending Addendum-
I saw and evaluated the patient. I reviewed the resident�s note and agree with findings and plan as documented in the resident�s note. had episode of diarrhea, mucus production, and LIRA Exam: Heart RRR lungs rhonchi @ bases b/l abd soft NT ND pos BS
LE trace edema
Plan:
# Acute Hypoxemic Ventilator Dependant Respiratory Failure- resolved, wean o2 for sats > 94%, intubated on admission, extubated 07/21
# Sepsis secondary to b/l PNA- possible aspiration event,� CXR personally reviewed, cont unasyn check labs in am may need repeat cxr as OP speech therapy
# Ischemic CM vs Takosubo- cath vs repeat echo as OP cont to monitor cards on board restart lasix SGL2 lisinopril when able
# Leukocytosis- improving, ua reflex cx-neg, sputum cx-mixed, blood cx neg repeat CBC in am
# Diarrhea- abx associated start bacid
# A fib with RVR- now in sinus cont amiodarone TID per cards cont metoprolol cont eliquis
# CAD- cont meds
# HLD- restart meds
Dispo- PT OT DC home 24-48 hours
coordinated care, reviewed of plan of care with resident, review of records, med rec, consults, notes, labs, rads, d/w nursing
Original Note:
Documented by User: Shashi Trinidad MD, Resident 07/25/23 17:12
Today's Communication/Plan
-
duonebs
mucinex
flutter valve
continue unisyn
keep overnight
likely discharge tomorrow
Assessment / Plan
Assessment / Plan
A/P:� Patient is a 68y F with PMH significant for ASCVD, lung cancer s/p bilateral upper lobectomies, A-Fib and P vera who presents to ED in respiratory distress.
Patient went into rapid afib twice last night and was given amiodarone which helped convert to sinus rhythm.
Acute Hypoxemic Respiratory Failure
- resolved
�- transfer to tele
�- Extubated 07/21
�- Possibility of PE / VTE seems very low in patient on triple therapy with ASA, Plavix and Eliquis.
�- Physical Integration Practitioner evaluation.
Afib with RVR
- converted to sinus rhythm
- Started Amiodarone 200 mg 3 times a day per cardio
- cardiology will talk to patient to adjust medication
-repeat echo and stress test outpatient cardiology
Bilateral Lower Lobe Pneumonia
Septic Shock secondary to the above
Lactic Acidosis secondary to the above
�- Patient presents with leukocytosis, tachycardia and tachypnea and CXR evidence of patchy lower lobe opacities c/w pneumonia.
�- Evidence of life-threatening organ dysfunction in the form of acute hypoxemic respiratory failure as noted above.
�- Family denies any recent respiratory symptoms.�
�- COVID / influenza negative in the ED.
�- Will continue to cover with broad spectrum abx for now pending further evaluation.
�- Follow up culture data and adjust regimen as needed.
�- Continue to investigate other possible causes of respiratory failure as noted below.
- continue IV Unisyn, monitor overnight, like discharge tomorrow
- incentive spirometry
- speech eval appreciated
Dyspnea/ Wheezing:
- starting duonebs Q6, mucinex BID
- flutter valve
ASCVD
Chronic HFrEF
Paroxysmal Atrial Fibrillation
�- Check / follow serial troponin to rule out new ischemia.
�- ? Takotsubo's scenario with significant social stressors / friend's recent passing / etc.
�- EKG done in the ED shows non-specific lateral T wave changes.
�- Check / update Echo - last in 04/04 with EF = 45% and moderate MR - improved from prior.
- Talked to intensivists, cardiology consulted.
�- Hold diuretics for now given hypotension / apparent sepsis.
�- Patient has no edema at all on exam and does not appear overloaded.
�- BNP is lowest in quite some time for her.
�- Consider Cardiology evaluation if abnormal troponin, echo, etc.
�- Continue Eliquis for stroke risk reduction.
�- Continue DAPT (most recent stent was October 2022).
- - On eliquis and plavix. ASA stopped per cardio. Plavix until October 2023
Polycythemia vera
�- Increased WBC and platelets which seem very reactive in nature.
�- Follow for changes / improvement.
�- Patient is not on any specific medication - beyond antiplatelets - according to her daughter.
�- Follow for changes in cell counts.
�- Continue DAPT.
�- Consider Hematology evaluation if cell counts increase or do not improve.
Benign Hypertension
�- BP markedly elevated on arrival and then became hypotensive following sedation / intubation.
�- IVF boluses administered.� Now on Levophed for BP support.
�- TLC placed in the ED.
�- Hold OP BP medications pending improvement in sepsis / shock.
GERD / Husain's Esophagus
�- Stable.� Continue daily PPI.
History of Bladder Cancer
�- Stable.� Prior TURBT and BCG therapy.
�- Last cysto was 02/2023 and biopsy was normal at that time.
�
History of Lung Cancer
�- s/p bilateral upper lobectomies - most recent was 7 years ago.
�- No recent symptoms or issues in this regard.
�- CXR without evidence of mass, etc.
Anxiety / Depression
�- Very anxious - especially today - according to her daughter.
�- Hold OP meds for now.
�- Currently on sedation protocol which should manage her acute anxieties.
DVT Prophylaxis:� On Eliquis
Diet - started on regular diet.
Swallow study ordered
Anticipated Discharge: Within 24 hours
Subjective/Interval History
-
Date of Service: July 25, 2023
Patient reports of experiencing dyspnea with exertion, like walking in the hallway. Patient also reports of an episode of diarrhea.
Objective Data
-
Labs:
Laboratory Results
07/25/23
07:53
WBC 15.7 H
Hgb 9.4 L
Hct 30.5 L
Plt Count 465 H
Sodium 136
Potassium 4.0
Chloride 103
Carbon Dioxide 24
BUN 22 H
Creatinine 1.2 H
Glucose 111 H
Calcium 8.5
Vital Signs:
Vital Signs
Temp Pulse Resp BP Pulse Ox
97.9 F 90 19 121/77 98
07/25/23 11:15 07/25/23 11:15 07/25/23 11:15 07/25/23 11:15 07/25/23 11:15
I&O
07/24/23 07/25/23 07/26/23
06:59 06:59 06:59
Intake Total 1875 / 1875 1440 / 1440
Output Total 580 / 580
Balance 1295 / 1295 1440 / 1440
Review of Systems
-
History Source: Patient
All other systems: Reviewed and negative (except mentioned below )
Respiratory: Reports Trouble Breathing and Wheezing
Abdomen/GI: Reports Diarrhea
Physical Exam
-
General: Well Developed and Well Nourished
HEENT: Normocephalic and Atraumatic
Respiratory: Clear to Auscultation
Cardiac: Regular Rhythm and S1/S2
Breast: Deferred by me
GI: Soft, Nontender and Nondistended
Musculoskeletal: No Edema
Skin: Warm and Dry
Neuro: Awake, Alert and Oriented
Hematologic / Lymphatic: No Lymphadenopathy
Psych: Calm
Data Reviewed
-
Labs: Labs Reviewed by me and Discussed with Physician

Documented by User: Rocky Maharaj MD 07/25/23 23:19
Assessment / Plan
Assessment / Plan
Anticipated Discharge: 24 - 48 hours
[2023-07-25] MEDS: DUONEB 3 ML INH ×2 (14:18→20:11)
--- NOTE | 2023-07-25 16:52 | PTOTSP ---
Dysphagia Evaluation
Patient with functional oral stage of swallowing. She is reporting an unspecified pharyngeal vs esophageal dysphagia described as 'tightness' when she tries to swallow - but denied any stasis or signs of aspiration at this time. Patient also
reported a sore throat. Question if these changes are secondary to post extubation (07/22/2023) or are related to her history of GERD/Husain's esophagus. She is currently admitted with aspiration PNA/pneumonitis.
Recommend:
1. Regular solids, Thin Liquids
2. Medications - as best tolerated
3. Strategies: small single sips/bites, slow rate, pick soft/moist foods as needed
4. Consider video swallow study to objectively assess swallowing function and pharyngeal stage of swallowing
[2023-07-25] MEDS: LIPITOR 80 MG PO (17:44)
[2023-07-25] MEDS: TYLENOL 650 MG PO (17:46)
[2023-07-25] MEDS: MUCINEX 600 MG PO (20:35)
[2023-07-25] MEDS: ZETIA 10 MG PO (21:48)
[2023-07-25] MEDS: PROZAC 20 MG PO (21:54)
[2023-07-26] MEDS: DUONEB 3 ML INH ×2 (01:59→07:56)
[2023-07-26 03:22] VITALS: BP 106/65
[2023-07-26] MEDS: UNASYN IV ×2 (03:58→09:36)
[2023-07-26 06:00] VITALS: BMI 22.8
[2023-07-26 06:16] LABS: % Basophils 0.6 % (0-2); % Eosinophils 1.5 % (0-6); % Immature Granulocytes 4.6 % (0-0.5); % Lymphocytes 8.3 % (20.5-51.1); % Monocytes 4.4 % (1.7-9.3); % Neutrophils 80.6 % (42.2-75.2); Absolute Basophils 0.1 10^3/uL (0-0.2); Absolute Eosinophils 0.2 10^3/uL (0-0.7); Absolute Immature Granulocytes 0.5 10^3/uL (0-0.05); Absolute Monocytes 0.5 10^3/uL (0.1-0.6); Absolute Neutrophils 9.3 10^3/uL (1.4-6.5); Hematocrit 29.6 % (37.0-47.0); Hemoglobin 9.1 g/dL (12.0-16.0); Mean Corp Hgb Conc. 30.7 g/dL (33.0-37.0); Mean Corpuscular Volume 71.7 fL (81.0-99.0); Nucleated Red Blood Cells % 1.3 %; Platelet Count 416 10^3/uL (130-400); Red Blood Cell Count 4.13 10^6/uL (4.20-5.40); White Blood Cell Count 11.6 10^3/uL (4.8-10.8)
[2023-07-26 06:34] LABS: Blood Urea Nitrogen 15 mg/dl (7-17); Calcium 8.4 mg/dl (8.4-10.2); Carbon Dioxide 27 mmol/L (22-30); Chloride 109 mmol/L (98-107); Estimated Creatinine Clearance 36 ml/min; Glucose 107 mg/dl (70-99); Potassium 4.3 mmol/L (3.5-5.1); Sodium 138 mmol/L (135-145); eGFR 44.51
[2023-07-26 07:30] VITALS: BP 123/76
[2023-07-26] MEDS: TOPROL XL 12.5 MG PO (08:35)
[2023-07-26] MEDS: ELIQUIS 5 MG PO (08:35)
[2023-07-26] MEDS: PLAVIX 75 MG PO (08:35)
[2023-07-26] MEDS: PROTONIX 40 MG PO (08:35)
[2023-07-26] MEDS: MUCINEX 600 MG PO (08:36)
[2023-07-26] MEDS: PACERONE 200 MG PO (08:36)
[2023-07-26 11:00] VITALS: BP 115/68
--- NOTE | 2023-07-26 11:05 | PTOTSP ---
AUTOMATION QA LEAD Note
Patient politely declined video swallow study at this time as she feels she is not having any acute difficulty swallowing or signs of aspiration, only a sore throat. Will notify physician and sign off at this time. Please reconsult as appropriate.
Patient reported chronic sensation of slow transit and stasis with dry foods (i.e., chicken) which subsides with time. Consider GI consult which could be at the outpatient level , if patient in agreement.
--- NOTE | 2023-07-26 11:49 | W.PN.CARDCBS ---
Addendum entered and electronically signed by Shanelle Ortiz PA-C 07/26/23 16:53:
Farxiga not covered under patient's formulary. Not able to determine [id number] cost to patient
Original Note:
Today's Communication / Plan
-
stable cardiology status for d/c
d/w primary service
change to amiodarone 200 mg po bid
Impression / Plan
-
PCP: Dr. Kwon
Cardiology: Dr. Meléndez
Impression:
Acute hypoxic respiratory failure
intubated in the ER 07/21/23, extubated 07/22/23
PNA, B/L lower lobes
Sepsis and shock
Paroxysmal AF, atrial fibrillation 07/23/2023 which spontaneously converted to sinus rhythm
Ischemic cardiomyopathy with ejection fraction ranging from 35-50% depending on modality
CAD
Circumflex stent 2010
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
s/p 3.0 mm [place] FAHAD to mid LAD 11/05/22
Mod MR
mod to sev 2010, mod in 2017 and 2020, sev on cath 06/2022, mod on GEORGINA 06/2022
Chronic Eliquis OAC
Anemia
Resection of bladder tumor 07/16/22
History of lung cancer with bilateral lobectomies 2011
Carotid stenosis
Echo 02/27/21: LV: Normal size and function.� EF 50-55%.� Possible basal inferior HK.� RV: Normal, LA: Severely dilated, RA: Normal, MV: Moderate MR, AV: Sclerotic.� Trace AI.� TV: Mild TR with PAP 25 mmHg
Echo 07/07/22: LV: EF 35%.� Global HK with severe HK to akinesis of the basal and mid inferior and inferolateral segments.� Severe HK of the basal and mid anterior and anteroseptal.� Stage II diastolic dysfunction.� RV: Mildly dilated, LA: Severely
dilated, RA: Mildly dilated, MV: Mild to moderate eccentric MR, AV: Trace AI.� TV: Mild TR with PAP 43
GEORGINA 07/10/22: LV: Mildly reduced EF estimated 45-50%.� RV: Dilated, LA: Dilated, RA: Dilated, GEORGI: No thrombus, MV: Prolapse of A3-P3 segments with moderate eccentric MR.� ERO 0.2 cm� and regurgitant volume 32 by PISA method.� AV: Trace AI, TV: Mild
TR with PAP 32 mmHg
Echo 03/20/23: EF 45%, hypokinesis basal to mid anteroseptal, basal to mid inferior and inferolateral black, stage I diastolic dysfunction, mod MR
Echo 07/22/23: Ejection fraction 30 to 35%, global hypokinesis with anteroseptal, basal inferior, and basal septal akinesis., Moderate to severe MR, mild TR PA systolic of 53 mmHg
Plan:
She continues with paroxysmal atrial fibrillation that is asymptomatic.
Okay for discharge from cardiology viewpoint as she currently is on Eliquis
Will choose amiodarone 200 mg p.o. twice daily
Ejection fraction reduction felt to be due to Takotsubo's
Will consider cath vs outpt repeat echo/ stress test
might consider change to entresto and /or add aldactone/ Jardiance as outpt
HPI: [facility] night with increased SOB and cardiology is now consulted for acute HF. Patient was visiting a friend at the hospital when she started with increasing SOB and appeared to be in respiratory distress. Patient was
intubated and central line placed in ER. Patient briefly on Levophed, but drips weaned and patient extubated this morning. Nautical Instrument Mechanic is following and there is concern for acute HF. pro-BNP was only 3110 on admission and has previously been as high
as 9280 during acute HF admissions. Initial Troponin was 0.348 and has trended up to 0.535. ECG with inferior and lateral ST changes in SR. Patient with complex PMH including left upper lobe resection for stage IA non-small cell lung cancer 06/2011
and right upper lobe VATS resection of a�stage I non-small cell lung cancer, coronary artery disease with unsuccessful PCI of a long segment PHYSICAL BIOCHEMIST of the right coronary artery in 2010 and 3.0 x 12 mm Vision stent to the mid circumflex then LAD PCI
11/05/22, paroxysmal atrial fibrillation on Eliquis and bladder mass for which she underwent a resection for and continues to follow-up with urology along with iron deficiency anemia.Previously patient has had moderate to severe to severe MR, but by
GEORGINA 07/10/22 the MR was moderate.
Progress Note - Assistant City Attorney
Subjective
Date of Service: July 26, 2023
No complaints.
Objective
Labs:
07/26/23 05:39
07/26/23 05:39
Labs
Hgb 9.1 g/dL (12.0-16.0) L 07/26/23 05:39
Hct 29.6 % (37.0-47.0) L 07/26/23 05:39
Plt Count 416 10^3/uL (130-400) H 07/26/23 05:39
PT 15.7 Sec (11.4-14.6) H 07/22/23 00:36
INR 1.27 07/22/23 00:36
APTT 42.1 Sec (23.4-35.0) H 07/22/23 00:36
Sodium 138 mmol/L (135-145) 07/26/23 05:39
Potassium 4.3 mmol/L (3.5-5.1) 07/26/23 05:39
BUN 15 mg/dl (7-17) 07/26/23 05:39
Creatinine 1.3 mg/dL (0.6-1.0) H 07/26/23 05:39
Glucose 107 mg/dl (70-99) H 07/26/23 05:39
Vital Signs and I&O:
Vital Signs
Temp Pulse Resp BP Pulse Ox
98.0 F 81 18 115/68 100
07/26/23 11:00 07/26/23 11:00 07/26/23 11:00 07/26/23 11:00 07/26/23 11:00
Vital Signs
Temp Pulse Resp BP Pulse Ox
98.0 F 81 18 115/68 100
07/26/23 11:00 07/26/23 11:00 07/26/23 11:00 07/26/23 11:00 07/26/23 11:00
Intake & Output
07/24/23 07/25/23 07/26/23 07/27/23
06:59 06:59 06:59 06:59
Intake Total 1875 / 1875 1440 / 1440 840 / 840
Output Total 580 / 580
Balance 1295 / 1295 1440 / 1440 840 / 840
Physical Exam
Physical Exam
General: Well developed, well nourished in NAD.
Neck: Supple, no JVD, HJR, carotids +2 B/L, no bruits bilaterally.
Heart: Non displaced PMI, RRR, no murmurs, No S3, S4, no rubs.
Lungs: Scattered rhonchi
Extremities: No clubbing, cyanosis or edema bilaterally.
Neuro: Grossly nonfocal, awake, alert and oriented x3.
--- NOTE | 2023-07-26 11:58 | CM ---
Addendum entered by ANIBAL Yap 07/26/23 16:46:
Placed a call to patient's pharmacy to check on louise of Farxiga however pharmacy technician assistant stated that medication is not covered under patient's formulary. No louise was available.
Original Note:
Reviewed chart, PT/OT notes. Patient recommendation per PT/OT is home.
Plan: Case management will continue to follow and assist with discharge planning. Home with VN.
[2023-07-26] MEDS: DUONEB INH (14:19)
[2023-07-26 15:00] VITALS: BP 124/79
--- NOTE | 2023-07-26 16:43 | PTCARENOTE ---
Rn flower arranger. Patient cleared for d/c. Patient very angry because she was told by the doctor that she was d/c at 12. The d/c order was completed at 1545. Apologized to patient for the delay. Patient states that now she does not have her
transportation and must drive herself. [place] texted Dr Maharaj that medications not transmitted to the pharmacy and that patient will need to drive themselves.
--- NOTE | 2023-07-26 16:52 | VNURNOTE ---
Home Health Liaison attempted to contact patient to discuss [facility], left message on patient's cell regarding home visits and scheduling.
[facility] referral completed in [facility] after review of chart.
--- NOTE | 2023-07-26 21:03 | W.PN.HOSP.TC ---
Addendum entered and electronically signed by Rocky Maharaj MD 07/26/23 21:48:
Attending Addendum-
I saw and evaluated the patient. I reviewed the resident�s note and agree with findings and plan as documented in the resident�s note. feels much improved. ready to go home. Exam: Heart RRR lungs decreased BS @ bases b/l abd soft NT ND pos BS LE
noedema
Plan:
# Acute Hypoxemic Ventilator Dependant Respiratory Failure- resolved, wean o2 for sats > 94%, intubated on admission, extubated 07/21
# Sepsis secondary to b/l PNA- resolved possible aspiration event,� transition unasyn to augmentin on dc
# Ischemic CM vs Takosubo- cath vs repeat echo as OP cont to monitor cards on board restart lasix SGL2 lisinopril when able
# Leukocytosis- improving, ua reflex cx-neg, sputum cx-mixed, blood cx neg repeat CBC in am
# Diarrhea- abx associated start bacid
# A fib with RVR- taper amiodarone BID per cards cont metoprolol cont eliquis ok to DC home with OP follow up set
# CAD- cont meds
# HLD- cont meds
Dispo-DC home today
time spent coordinating care, DC planning, transition of care, reviewing of plan of care with resident, review of records, med rec, consults, notes, labs, rads, d/w nursing, cards- 39 minutes
Original Note:
Today's Communication/Plan
-
cardiology outpatient f/u
amidarone BID 200 mg
amoxacillin clavulanate PO x 5 days
restart statin and zetia
Assessment / Plan
Assessment / Plan
A/P:� Patient is a 68y F with PMH significant for ASCVD, lung cancer s/p bilateral upper lobectomies, A-Fib and P vera who presents to ED in respiratory distress.
Patient went into rapid afib twice last night and was given amiodarone which helped convert to sinus rhythm.
Acute Hypoxemic Respiratory Failure
- resolved
�- transfer to tele
�- Extubated 07/21
�- Possibility of PE / VTE seems very low in patient on triple therapy with ASA, Plavix and Eliquis.
�- Pumping Station Supervisor evaluation.
Afib with RVR
- converted to sinus rhythm
- Started Amiodarone 200 mg BID per cardio
- cardiology will talk to patient to adjust medication
-repeat echo and stress test outpatient cardiology
Bilateral Lower Lobe Pneumonia
Septic Shock secondary to the above
Lactic Acidosis secondary to the above
�- Patient presents with leukocytosis, tachycardia and tachypnea and CXR evidence of patchy lower lobe opacities c/w pneumonia.
�- Evidence of life-threatening organ dysfunction in the form of acute hypoxemic respiratory failure as noted above.
�- Family denies any recent respiratory symptoms.�
�- COVID / influenza negative in the ED.
�- Will continue to cover with broad spectrum abx for now pending further evaluation.
�- Follow up culture data and adjust regimen as needed.
�- Continue to investigate other possible causes of respiratory failure as noted below.
- continue IV Unisyn, monitor overnight, like discharge tomorrow
- incentive spirometry
- speech eval appreciated
-discharge home today, switching to amoxicillin clav 827-125 mg one tablet twice a day for 5 days
Dyspnea/ Wheezing:
- starting duonebs Q6, mucinex BID
- flutter valve
ASCVD
Chronic HFrEF
Paroxysmal Atrial Fibrillation
�- Check / follow serial troponin to rule out new ischemia.
�- ? Takotsubo's scenario with significant social stressors / friend's recent passing / etc.
�- EKG done in the ED shows non-specific lateral T wave changes.
�- Check / update Echo - last in 04/04 with EF = 45% and moderate MR - improved from prior.
- Talked to intensivists, cardiology consulted.
�- Hold diuretics for now given hypotension / apparent sepsis.
�- Patient has no edema at all on exam and does not appear overloaded.
�- BNP is lowest in quite some time for her.
�- Consider Cardiology evaluation if abnormal troponin, echo, etc.
�- Continue Eliquis for stroke risk reduction.
�- Continue DAPT (most recent stent was October 2022).
- - On eliquis and plavix. ASA stopped per cardio. Plavix until October 2023
Polycythemia vera
�- Increased WBC and platelets which seem very reactive in nature.
�- Follow for changes / improvement.
�- Patient is not on any specific medication - beyond antiplatelets - according to her daughter.
�- Follow for changes in cell counts.
�- Continue DAPT.
�- Consider Hematology evaluation if cell counts increase or do not improve.
Benign Hypertension
�- BP markedly elevated on arrival and then became hypotensive following sedation / intubation.
�- IVF boluses administered.� Now on Levophed for BP support.
�- TLC placed in the ED.
�- Hold OP BP medications pending improvement in sepsis / shock.
GERD / Husain's Esophagus
�- Stable.� Continue daily PPI.
History of Bladder Cancer
�- Stable.� Prior TURBT and BCG therapy.
�- Last cysto was 02/2023 and biopsy was normal at that time.
�
History of Lung Cancer
�- s/p bilateral upper lobectomies - most recent was 7 years ago.
�- No recent symptoms or issues in this regard.
�- CXR without evidence of mass, etc.
Anxiety / Depression
�- Very anxious - especially today - according to her daughter.
�- Hold OP meds for now.
�- Currently on sedation protocol which should manage her acute anxieties.
DVT Prophylaxis:� On Eliquis
Diet - started on regular diet.
Swallow study ordered
Anticipated Discharge: Today
Subjective/Interval History
-
Date of Service: July 26, 2023
Patient is feeling better
Objective Data
-
Vital Signs:
Vital Signs
Temp Pulse Resp BP Pulse Ox
98.3 F 83 19 124/79 100
07/26/23 15:00 07/26/23 15:00 07/26/23 15:00 07/26/23 15:00 07/26/23 15:00
I&O
07/25/23 07/26/23 07/27/23
06:59 06:59 06:59
Intake Total 1440 / 1440 840 / 840
Balance 1440 / 1440 840 / 840
Review of Systems
-
All other systems: Reviewed and negative
Physical Exam
-
General: Well Developed
HEENT: Normocephalic and Atraumatic
Respiratory: Clear to Auscultation
Cardiac: Regular Rhythm and S1/S2
GI: Soft and Nontender
Musculoskeletal: No Edema
Neuro: Awake, Alert and Oriented
Hematologic / Lymphatic: No Lymphadenopathy
Psych: Calm
Data Reviewed
-
Labs: Labs Reviewed by me and Discussed with Physician
--- NOTE | 2023-07-26 21:07 | W.DCSUMMARY ---
Addendum entered and electronically signed by Rocky Maharaj MD 07/26/23 21:59:
Attending Addendum:
Read reviewed and agree.
Original Note:
Documented by User: Shashi Trinidad MD, Resident 07/26/23 21:23
Discharge Summary
Discharge Data
Date of Admission: 07/21/23
Date of Discharge: 07/26/23
-
Pending Results: No
Hospital Course
DISCHARGE DIAGNOSIS
Acute Hypoxemic Respiratory Failure
Afib with RVR
Bilateral Lower Lobe Pneumonia
Dyspnea/ Wheezing:
ASCVD
Polycythemia vera
Benign Hypertension
GERD / Husain's Esophagus
History of Bladder Cancer
History of Lung CanceR
Anxiety / Depression
HOSPITAL COURSE :
Patient is a 68y F with PMH significant for lung cancer, ASCVD, A-Fib and bladder cancer who presents to ED in respiratory distress. Patient was intubated in ED and was tranferred to ICU floor. She was then extubated within 24 hours. Patient had
3 epipsodes of afib with RVR due to which she was given amiodarone, cardiology was following. She was started on amiodaron 200 mg TID per cardiology. She also had an episode of diarrhea and vomiting x 2 . Patient felt dyspnea on extertion.
Metoprolol 25 mg was added per cardiology. She was then transferred to the floor once she was in sinus rhythm, nomotensive, O2 98%. On the day of discharge patient was recommended cardiology f/u as outpatient, amiodarone 200 mg BID, metoprolol 12.5
BID, continue Eliquis and Plavix, ASA discontinued. Plavix to be continued till October 2023.
Afib with RVR
continue metoprolol 12.5 BID, amiadarone 200 mg BID
Bilateral Lower Lobe Pneumonia
switched to amoxacillin clav x 5 days
Dyspnea/ Wheezing:
flutter valve
ASCVD
continue plavix and eliquis, resume statin and zetia
Benign Hypertension
resume furosemide
GERD / Husain's Esophagus
resume pantoprazole
History of Bladder Cancer
Polycythemia vera
History of Lung CanceR
Anxiety / Depression
Discharge Plan
-
Patient Disposition: Home (Routine Discharge)
Discharge Diagnosis/Procedures: Atrial fibrillation with RVR
B/L lower lobe pneumonia
CAD
HLD
HTN
Condition: Good
Diet: Low Sodium
Activity: No restrictions
Driving Restrictions: No driving for 24 hours
Referrals:
Matthias Meléndez MD [Active] - 08/12/23 11:20 am (You have a cardiology follow-up appointment at the [facility]. Please call with questions)
Capo Santiago MD [Active] - in two to three weeks (may see PEN RIDER)
Carlita Kwon MD [Family Provider] -
Additional Discharge Medication Instructions: amiodarone 200 mg BID for 30 days
TOPROL XL 12.5 mg BID for 30 days
amoxicillin clavulanate 875-125 mg once a day for 5 days
Prescriptions:
New
amiodarone [Pacerone] 200 mg Tablet
200 mg PO BID 30 Days Qty: 60 0RF
metoprolol succinate 25 mg Tablet Extended Release 24 Hr
12.5 mg PO BID 30 Days Qty: 30 0RF
amoxicillin-pot clavulanate 875-125 mg tablet
1 tab PO BID 5 Days Qty: 10 0RF
Continued
atorvastatin [Lipitor] 80 mg Tablet
80 mg PO HS
tolterodine 4 mg Capsule,Extended Release 24hr
4 mg PO QPM
pantoprazole [Protonix] 40 mg Tablet,Delayed Release (Dr/Ec)
40 mg PO DAILY
fluoxetine [Prozac] 20 mg Capsule
20 mg PO HS
ezetimibe [Zetia] 10 mg Tablet
10 mg PO QPM
Probiotic 3 billion cell Capsule
3 mmu cells PO DAILY
lisinopril 5 mg tablet
5 mg PO DAILY
Hold Instructions: Resume on 12/31/22.
Jardiance 10 mg tablet
10 mg PO DAILY
clopidogrel 75 mg tablet
75 mg PO DAILY
furosemide 20 mg tablet
20 mg PO DAILY
multivitamin with folic acid [Tab-A-Kp] 400 mcg tablet
1 tab PO DAILY
Eliquis 5 mg tablet
5 mg PO BID
Discontinued
metoprolol succinate 25 mg tablet extended release 24 hr
25 mg PO BID
Discharge Orders:
Discharge Patient (As Directed); Ordered 07/26/23
Ordered By: Shashi Trinidad
Discharge Date and Time
Discharge Date/Time: 07/26/23 17:49

Documented by User: Rocky Maharaj MD 07/26/23 21:58
Discharge Summary
Discharge Data
Date of Admission: 07/21/23
Date of Discharge: 07/26/23
Discharge Plan
-
Patient Disposition: Home (Routine Discharge)
Discharge Diagnosis/Procedures: Atrial fibrillation with RVR
B/L lower lobe pneumonia
CAD
HLD
HTN
Condition: Good
Diet: Low Sodium
Activity: No restrictions
Driving Restrictions: No driving for 24 hours
Referrals:
Matthias Meléndez MD [Active] - 08/12/23 11:20 am (You have a cardiology follow-up appointment at the [facility]. Please call with questions)
Capo Santiago MD [Active] - in two to three weeks (may see PEN RIDER)
Carlita Kwon MD [Family Provider] -
Additional Discharge Medication Instructions: amiodarone 200 mg BID for 30 days
TOPROL XL 12.5 mg BID for 30 days
amoxicillin clavulanate 875-125 mg once a day for 5 days
Prescriptions:
New
amiodarone [Pacerone] 200 mg Tablet
200 mg PO BID 30 Days Qty: 60 0RF
metoprolol succinate 25 mg Tablet Extended Release 24 Hr
12.5 mg PO BID 30 Days Qty: 30 0RF
amoxicillin-pot clavulanate 875-125 mg tablet
1 tab PO BID 5 Days Qty: 10 0RF
Continued
atorvastatin [Lipitor] 80 mg Tablet
80 mg PO HS
tolterodine 4 mg Capsule,Extended Release 24hr
4 mg PO QPM
pantoprazole [Protonix] 40 mg Tablet,Delayed Release (Dr/Ec)
40 mg PO DAILY
fluoxetine [Prozac] 20 mg Capsule
20 mg PO HS
ezetimibe [Zetia] 10 mg Tablet
10 mg PO QPM
Probiotic 3 billion cell Capsule
3 mmu cells PO DAILY
lisinopril 5 mg tablet
5 mg PO DAILY
Hold Instructions: Resume on 12/31/22.
Jardiance 10 mg tablet
10 mg PO DAILY
clopidogrel 75 mg tablet
75 mg PO DAILY
furosemide 20 mg tablet
20 mg PO DAILY
multivitamin with folic acid [Tab-A-Kp] 400 mcg tablet
1 tab PO DAILY
Eliquis 5 mg tablet
5 mg PO BID
Discontinued
metoprolol succinate 25 mg tablet extended release 24 hr
25 mg PO BID
Discharge Orders:
Discharge Patient (As Directed); Ordered 07/26/23
Ordered By: Shashi Trinidad
Discharge Date and Time
Discharge Date/Time: 07/26/23 17:49
== END 2023-07-26 17:49 | disposition home health service (06) | DRG 871 ==
LOC: 4 WEST ACU 22:41
PROVIDERS: Nurse Practitioner Family; Nurse Practitioner Primary Care; Student in an Organized Health Care Education/Training Program; ADMITTING PHYSICIAN Hospitalist; ATTENDING PHYSICIAN Family Medicine; EMERGENCY PHYSICIAN Emergency Medicine; FAMILY PHYSICIAN Family Medicine; OTHER PHYSICIAN Internal Medicine Cardiovascular Disease; OTHER PHYSICIAN Internal Medicine Critical Care Medicine
PROC: 5A1935Z Respiratory Ventilation, Less than 24 Consecutive Hours (ICD-10-PCS; 2023-07-22)
PROC: 0BH17EZ Insertion of Endotracheal Airway into Trachea, Via Natural or Artificial Opening (ICD-10-PCS; 2023-07-22)
PROC: 0BP1XDZ Removal of Intraluminal Device from Trachea, External Approach (ICD-10-PCS; 2023-07-23)
DX: A41.89 Other specified sepsis (principal); J69.0 Pneumonitis due to inhalation of food and vomit; J96.01 Acute respiratory failure with hypoxia; R65.21 Severe sepsis with septic shock; I13.0 Hypertensive heart and chronic kidney disease with heart failure and stage 1 through stage 4 chronic kidney disease, or unspecified chronic kidney disease; E87.20 Acidosis, unspecified; N17.9 Acute kidney failure, unspecified; I50.22 Chronic systolic (congestive) heart failure; D45 Polycythemia vera; E78.00 Pure hypercholesterolemia, unspecified; N18.30 Chronic kidney disease, stage 3 unspecified; I25.10 Atherosclerotic heart disease of native coronary artery without angina pectoris; K21.9 Gastro-esophageal reflux disease without esophagitis; K22.70 Barrett's esophagus without dysplasia; F32.A Depression, unspecified; F41.9 Anxiety disorder, unspecified; I34.0 Nonrheumatic mitral (valve) insufficiency; I25.5 Ischemic cardiomyopathy; I25.82 Chronic total occlusion of coronary artery; D50.9 Iron deficiency anemia, unspecified; D75.839 Thrombocytosis, unspecified; I48.0 Paroxysmal atrial fibrillation; Z85.118 Personal history of other malignant neoplasm of bronchus and lung; Z11.52 Encounter for screening for COVID-19; Z95.5 Presence of coronary angioplasty implant and graft; Z90.2 Acquired absence of lung [part of]; Z79.01 Long term (current) use of anticoagulants; Z79.02 Long term (current) use of antithrombotics/antiplatelets; Z79.84 Long term (current) use of oral hypoglycemic drugs; Z87.891 Personal history of nicotine dependence; Z79.82 Long term (current) use of aspirin; Z85.51 Personal history of malignant neoplasm of bladder; Z96.21 Cochlear implant status
CPT/HCPCS: 31500; 36556; 51702; 71045; 71275; 80048; 80053; 81003; 82248; 82805; 83605; 83735; 83880; 84100; 84145; 84443; 84478; 84484; 85025; 85027; 85610; 85730; 87040; 87070; 87205; 87502; 87641; 87811; 92610; 93005; 93306; 94002; 94640; 96365; 96375; 97116; 97162; 97166; 99291; Q9967

== ENCOUNTER → 2023-09-12 07:13 | Outpatient (REF) | payer OTHER, SELFPAY | LOC: RCS 07:13 | PROVIDERS: ATTENDING PHYSICIAN Internal Medicine Cardiovascular Disease; FAMILY PHYSICIAN Family Medicine | DX: I25.5 Ischemic cardiomyopathy (principal); J18.9 Pneumonia, unspecified organism | CPT/HCPCS: 71046; 93306 ==

== ENCOUNTER 2023-09-21 07:52 | Inpatient (IN) | payer OTHER, SELFPAY ==
[2023-09-21] VITALS (20 sets, daily range): BP systolic 99–141; BP diastolic 66–89; PULSE 2–93; BMI 22.6
[2023-09-21 06:03] LABS: % Basophils 1.1 % (0-2); % Eosinophils 0.4 % (0-6); % Lymphocytes 20.4 % (20.5-51.1); % Monocytes 5.9 % (1.7-9.3); % Neutrophils 67.2 % (42.2-75.2); Absolute Basophils 0.2 10^3/uL (0-0.2); Absolute Eosinophils 0.1 10^3/uL (0-0.7); Absolute Immature Granulocytes 1.1 10^3/uL (0-0.05); Absolute Lymphocytes 4.3 10^3/uL (1.2-3.4); Absolute Monocytes 1.3 10^3/uL (0.1-0.6); Absolute Neutrophils 14.3 10^3/uL (1.4-6.5); Hematocrit 33.2 % (37.0-47.0); Hemoglobin 9.7 g/dL (12.0-16.0); Mean Corp Hgb Conc. 29.2 g/dL (33.0-37.0); Mean Corpuscular Volume 75.5 fL (81.0-99.0); Nucleated Red Blood Cells % 2.8 %; Platelet Count 736 10^3/uL (130-400); Red Cell Dist. Width 27.9 % (11.5-14.5); White Blood Cell Count 21.3 10^3/uL (4.8-10.8)
--- NOTE | 2023-09-21 06:10 | ED.GENMED ---
History of Present Illness
General
Chief Complaint: Breathing Problem
Source: patient
Time Seen by Provider: 09/21/23 06:00
Travel History
Have you had any contact with someone who has COVID-19?: No
Do you have any symptoms of coronavirus? Fever > 100 degrees, chills, cough, shortness of breath, sore throat, loss of taste or smell, muscle aches, or headache?: Yes
Symptoms:: SOB
History of Present Illness
History of Present Illness:
The patient is a 68-year-old female the past medical history of CHF, A-fib, lung cancer, and bladder cancer who reports that throughout the night, she developed shortness of breath. Patient reports that it woke her up out of her sleep. The
shortness of breath intensified at around 4:30 AM. Patient reports a mild cough but denies chest pain. She denies fever. She denies productive cough. She denies leg pain and leg swelling. Patient was just recently admitted for hypoxic
respiratory failure and bilateral pneumonia this past July and had been intubated and hospitalized in the ICU.
Past History
Past History
ED Past Medical History: Arrthythmia (A fib), Cancer (Bladder cancer lung cancer), HTN and Hypercholesterolemia
ED Past Surgical History: Appendectomy, Cardiac (Stent), (X 2) and Other (Bilateral upper lung lobectomy)
Social History
Tobacco: Former smoker
Alcohol: None
Drug: Marijuana
Personal:
Living: alone
Employment: Other
Family History
Family History: Other
Review of Systems
Review of Systems
Allergies reviewed?: Yes
All Other Systems: ROS reviewed and negative except as documented in HPI and ROS
Constitutional: Reports fatigue
EENT: Reports no symptoms
Respiratory: Reports trouble breathing
Cardiac: Reports no symptoms
ABD/GI: Reports no symptoms
: Reports no symptoms
Musculoskeletal: Reports no symptoms
Skin: Reports no symptoms
Neurological: Reports no symptoms
Endocrine: Reports no symptoms
Hematologic/Lymphatic: Reports no symptoms
Psychiatric: Reports no symptoms
Phy Exam
Physical Exam
Physical Exam:
Physical Exam
General: Patient is tachypneic but fully awake, alert and answering all questions
Neck: supple. no meningeal signs. normal psoterior pharynx
Heart: Tachycardic
Lungs: Moderate respiratory distress with bilateral wheezing and crackles
Abdomen: normal bowel sounds. not tender. no CVAT
Neuro: alert and oriented. no focal neurological deficits
Skin: no rash
Psychiatric: well kept. interactive and cooperative
Extremities: no edema. no calf tenderness. negative homans. good distal pulses
Scores
Heart Failure Risk
Heart Failure Risk Score: Not Applicable
Course
Orders/Labs/Results
Orders:
Orders
09/21/23 05:49
Electrocardiogram (*1) Urgent
Reason for Study: Other
Other Reason for Exam: Respiratory Distress
Cardiac Monitoring- Treatment ONCE
EKG- Treatment ONCE
Pulse Ox/cont/shift [RESP] Urgent
Quantity: 1
Special Instructions: continuous pulse ox
09/21/23 05:51
Complete Blood Count/With Diff Urgent
Comprehensive Metabolic Panel Urgent
NT-proBNP Urgent
Troponin I Urgent
09/21/23 05:55
Portable Chest Xray [CR Chest Portable - 1 View] Urgent
Comment:
Reason For Exam: sob
Reason Study Needs to be Portable: Patient Unstable
09/21/23 06:13
Bipap [RESP] Urgent
Patient to use own unit?: No
Inspiratory Pressure (cm H2O): 10
Expiratory Pressure (cm H2O): 5
09/21/23 06:14
Furosemide [Lasix] 40 mg IV NOW STA
09/21/23 06:28
Lactic Acid Q4H
Comment: CANCEL 2nd LACTIC ACID IF 1st LACTIC ACID IS LESS THAN 2
Blood Culture Q30M
[place] Source: Blood/Venous
Specimen Description:
Blood Culture Q30M
[place] Source: Blood/Venous
Specimen Description:
09/21/23 07:00
Piperacillin/Tazo 4.5 Gram [Zosyn] 4.5 gram in 100 ml IV NOW
09/21/23 07:02
0.9% Sodium Chloride 1000 ml [Nss] 1,700 ml IV NOW STA
09/21/23 07:33
Admit/Transfer Patient As Directed
Co-Sign Provider:
Level of Care: Inpatient admission
Assign to:: IMU- Intermediate Care
Physician / Group: Dr Snell
Diagnosis: Pneumonia
Reason for Hospitalization: pte p/w sob and found sepsis due to pneumonia
Expected length of stay greater than two midnights?: Yes
ELOS- Estimated Length of Stay in days: 2
I certify the patient meets the requirements for IP care: Yes
09/21/23 07:35
Code Status As Directed
Resuscitation Status: Full Code
09/21/23 07:44
Sputum Culture [Respiratory Culture/Gram Stain] Routine
[place] Source: Sputum
Specimen Description:
09/21/23 07:46
Dextrose 50%-Water [Dextrose 50% Syringe] 12.5 grams IV [id number] PRN
Glucagon [GlucaGen] 1 mg IM PRN PRN
Bedside Glucose Monitoring As Directed
Frequency: AC&HS
Additional Instructions:: Change to q6h if pt on TPN, tube feeding or not eating
09/21/23 07:56
Blood Culture Q30M
[place] Source: Blood/Venous
Specimen Description:
Blood Culture Q30M
[place] Source: Blood/Venous
Specimen Description:
09/21/23 08:00
VANCOMYCIN Pharmacy to Dose [VANCOCIN Pharmacy to Dose] 1 each Pharmacy To Prepare [Call Pharmacy To Prepare] 0 ml IV PER PROTOCOL
Vancomycin [Vancocin] 1,250 mg 0.9% Sodium Chloride 250 ml [Nss] 250 ml IV ONCE
09/21/23 08:11
ABG [Arterial Blood Gas] Stat
%Oxygen/Room Air: room air
09/21/23 08:22
Activity As Directed
Activity Level: Out of Bed-Early Mobility
Intake/ Output As Directed
Frequency: Per unit guidelines
Pneumatic Compression Sleeves As Directed
Type: Knee high
Vital Signs As Directed
Frequency: Per unit guidelines
Weight As Directed
Frequency: Once
Comment: on admission
DX Deep Vein Thrombosis Video Routine
09/21/23 Lunch
NPO
Allow oral meds: No
Allow clear liquids: No
09/21/23 10:30
Lactic Acid Q4H
Comment: CANCEL 2nd LACTIC ACID IF 1st LACTIC ACID IS LESS THAN 2
09/21/23 12:00
Insulin Aspart Corrective Low [Novolog Flexpen-Low Resistance] See Protocol SC Q6
09/21/23 14:00
Piperacillin/Tazo 2.25 Gram [Zosyn] 2.25 grams in 50 ml IV Q6H
09/22/23 06:00
Glycohemoglobin (HgbA1c) IN AM
Abnormal Lab Results
09/21/23 09/21/23
05:51 06:28
WBC 21.3 H 10^3/uL
(4.8-10.8)
Hgb 9.7 L g/dL
(12.0-16.0)
Hct 33.2 L %
(37.0-47.0)
MCV 75.5 L fL
(81.0-99.0)
MCH 22.0 L pg
(27.0-31.0)
MCHC 29.2 L g/dL
(33.0-37.0)
RDW 27.9 H %
(11.5-14.5)
Plt Count 736 H 10^3/uL
(130-400)
Abs Immat Gran (auto) 1.1 H 10^3/uL
(0-0.05)
Absolute Neuts (auto) 14.3 H 10^3/uL
(1.4-6.5)
Absolute Lymphs (auto) 4.3 H 10^3/uL
(1.2-3.4)
Absolute Monos (auto) 1.3 H 10^3/uL
(0.1-0.6)
Immature Gran % 5.0 H %
(0-0.5)
Lymphocytes % 20.4 L %
(20.5-51.1)
Carbon Dioxide 19 L mmol/L
(22-30)
BUN 26 H mg/dl
(7-17)
Creatinine 1.5 H mg/dL
(0.6-1.0)
Glucose 277 H mg/dl
(70-99)
Lactic Acid 4.5 H* mmol/L
(0.7-2.0)
AST 37 H U/L
(14-36)
09/21/23 05:51
09/21/23 05:51
Vital Signs
Initial and Last Documented VS:
Initial Vital Signs
Temp Pulse Resp Pulse Ox
97.3 F 120 34 84
09/21/23 05:50 09/21/23 05:50 09/21/23 05:50 09/21/23 05:50
Last Documented Vital Signs
Temp Pulse Resp BP Pulse Ox
97.9 F 75 21 105/70 98
09/21/23 09:03 09/21/23 10:00 09/21/23 10:00 09/21/23 10:00 09/21/23 10:00
MDM/Problems Addressed
Differential Diagnosis Includes:
Hospital-acquired pneumonia, CHF, PE
MDM/Problems Addressed:
Patient presents with acute shortness of breath
Chronic conditions affecting care:
Patient is at increased risk of pneumonia and heart failure with her history of A-fib and prior lobectomy
Chronic conditions affecting care: Arrhythmia
Acute Exacerbation and/or Progression of Chronic Illness:
Patient may have acute exacerbation of A-fib or CHF
Acute Exacerbation and/or Progression of Chronic Illness: Other (CHF)
*Radiology
Radiology exam reviewed: preliminary read by ED provider (Chest x-ray reviewed by me. Bilateral infiltrates)
*Pulse Oximetry
Patient hypoxic: yes
*EKG
Interpreted by ED Provider?: Yes
Interpretation: abnormal
Comparison EKG: changes noted
Rate: tachycardiac
Rhythm: sinus
[place]: left axis deviation
Interval: normal interval
QRS Pattern: left bundle branch block and left vent hypertrophy
Ischemia: non-specific ST changes
*Bridge Worker Interpretation
Rate: tachycardiac
Interpretation: abnormal
Rhythm: sinus
*Critical Care Note
Total Time (30-74mins, 75-104mins- exclusive of procedures): Not Applicable
comment:
42 minutes of critical care given to the patient including reviewing her recent ICU admission, reviewing her chest x-ray and recent chest x-rays, reviewing her lab work, EKG and reassessing her respiratory effort
Data Reviewed
Review of Other/Old Records Reveals: Discharge Summary (Discharge summary reviewed from hospitalist from July 2023 when patient was admitted for bilateral pneumonia and hypoxic respiratory failure)
Source: patient and ambulance crew
Patient Management
Discussion with other providers: Hospitalist
Escalation/DeEscalation of care consider admission/obs:
Patient's hypoxia, increased work of breathing, elevated lactic and white blood cell count concerning for infection, patient will be admitted for respiratory support and IV antibiotics
ED Attending Note
-
Portions of this chart may have been created with voice recognition software.� Occasional wrong word or��sound alike� substitutions may have occurred due to the inherent limitations of voice recognition software.
Discharge Plan
Departure
Patient Disposition: Admit
Date of Disposition: 09/21/23
Time of Disposition: 07:01
Admit to: Telemetry
Presentation/result/management discussed w/ accepting MD/DO: Hospitalist
Patient with high blood pressure during this ER visit?: No
Condition: Fair
Covid-19: Not Applicable
Discharge Problem:
HAP (hospital-acquired pneumonia), Leukocytosis, Acute hypoxemic respiratory failure
Interventions
Interventions:
*Risk Screen - Suicide Last Done: 09/21/23 05:50
*General Assessment Last Done: 09/21/23 05:50
*Neglect/Abuse Screening Last Done: 09/21/23 05:50
ED- Fall Risk Assessment Last Done: 09/21/23 06:07
*ED COVID-19 Vaccine History Last Done: 09/21/23 06:14
ED- Cardiac Assessment Last Done: 09/21/23 06:07
ED- Pulmonary Assessment Last Done: 09/21/23 06:07
[2023-09-21 06:12] LABS: ALT (SGPT) 20 U/L (0-35); AST (SGOT) 37 U/L (14-36); Alkaline Phosphatase 98 U/L (38-126); Blood Urea Nitrogen 26 mg/dl (7-17); Calcium 8.9 mg/dl (8.4-10.2); Carbon Dioxide 19 mmol/L (22-30); Chloride 100 mmol/L (98-107); Glucose 277 mg/dl (70-99); Potassium 4.5 mmol/L (3.5-5.1); Sodium 136 mmol/L (135-145); Total Protein 6.3 g/dl (6.3-8.2); eGFR 37.49
[2023-09-21 06:23] LABS: NT-proBNP 3910 pg/ml; Troponin I < 0.012 ng/ml
[2023-09-21 06:56] LABS: Lactic Acid 4.5 mmol/L (0.7-2.0)
--- NOTE | 2023-09-21 07:01 | EDRN ---
lactic came back at 4.5, provider notified
[2023-09-21] MEDS: ZOSYN 100 IV (07:29)
[2023-09-21] MEDS: NSS 1700 ML IV (07:31)
--- NOTE | 2023-09-21 07:41 | HPS.HSE ---
Addendum entered and electronically signed by Jacoby Snell MD 09/21/23 14:35:
Down to 6 lt on oxygen and off BIPAP. Transfer to telemetry since resp status improving.
Addendum entered and electronically signed by Jacoby Snell MD 09/21/23 14:29:
Reevaluated pateint this afternoon and more stable resp status--> trial of d/c BIPAP and start nasal canula oxygen to keep pulse ox> 90%. Can have Bipap back if needed should resp status worsen, but she only needs oxygen supplementation now.
Original Note:
Family Physician
-
Family Physician: INTERVIEWE UNKNOWN - PT NOT
Chief Complaint
-
sob
History of Present Illness
Patient 68-year-old female with past medical history of Hypertension, dyslipidemia, lung cancer s/p resection in the past, CAD, peripheral vascular disease, polycythemia vera, bladder cancer status post TURBT, paroxysmal atrial fibrillation,
chronic systolic congestive heart failure, CKD, severe mitral regurgitation, depression and anxiety presented to the hospital with cough and shortness of breath. Patient has not been feeling well over the last couple days and she has been
complaining of cough with clear sputum that has progressively getting worse associated with shortness of breath and this morning she woke up from sleep with significant dyspnea. Patient denies any fevers or chills. Denies any chest pain. Denies
any leg pain or leg swelling. Patient saw her spray cementer just a few days ago and she was given a clean bill by patient and daughter report. She was here also with a hospitalization back in July for respiratory failure due to heart failure and
pneumonia and multiple other complications. Here in the ER, she was noted to be in respiratory distress and she was immediately placed on BiPAP; she was given IV Lasix and broad-spectrum IV antibiotics ; her WBC is 21.3 K and a lactic acid of 4.5
and a chest x-ray with bilateral pneumonia. She was referred to hospitalist for further evaluation.
Medical History
Past Medical History
Past Medical History: Reports Other (Hypertension, dyslipidemia, lung cancer s/p resection in the past, CAD, peripheral vascular disease, polycythemia vera, bladder cancer status post TURBT, paroxysmal atrial fibrillation, chronic systolic
congestive heart failure, CKD, severe mitral regurgitation, depression and anxiety)
Past Surgical History: Reports Other (PTCA with stents, right femur ORIF, appendectomy, , TURBT, left upper lobectomy, right upper lobectomy, right radial pseudoaneurysm repair, cochlear implant.)
Social History
Tobacco: Former Smoker
Alcohol: None
Drug: None
Family History
Family History: Not pertinent
Allergies / Home Medications
Allergies reflects when Allergies were last updated in [email or web address]
Home Medications with original date entered in [email or web address]
Allergy/Medication List:
Allergies
Allergy/AdvReac Type Severity Reaction Status Date / Time
No Known Drug Allergies Allergy NA Verified 02/21/23 08:52
pollen extracts Allergy runny Verified 02/21/23 08:52
nose,itchy
eyes
Home Medications
atorvastatin 80 mg tablet (Lipitor) 80 mg PO HS High cholesterol 04/07/22
ezetimibe 10 mg tablet (Zetia) 10 mg PO QPM High cholesterol 04/07/22
fluoxetine 20 mg capsule (Prozac) 20 mg PO HS Mental Health/Anxiety 04/07/22
pantoprazole 40 mg tablet,delayed release (Protonix) 40 mg PO DAILY Gastrointestinal issue 04/07/22
tolterodine 4 mg capsule,extended release 24 hr 4 mg PO QPM Urinary issue 04/07/22
lactobacillus combination no.4 3 billion cell capsule (Probiotic) 3 mmu cells PO DAILY Gastrointestinal issue 07/07/22
lisinopril 5 mg tablet 5 mg PO DAILY Blood Pressure 12/28/22
empagliflozin 10 mg tablet (Jardiance) 10 mg PO DAILY 'heart protection' 02/18/23
apixaban 5 mg tablet (Eliquis) 5 mg PO BID Blood Clot Prevention/Tx 07/22/23
clopidogrel 75 mg tablet 75 mg PO DAILY Blood Clot Prevention/Tx 07/22/23
furosemide 20 mg tablet 20 mg PO DAILY Fluid Retention/Swelling 07/22/23
multivitamin with folic acid 400 mcg tablet (Tab-A-Kp) 1 tab PO DAILY Supplement 07/22/23
amiodarone 200 mg tablet (Pacerone) 200 mg PO BID 30 days #60 tabs 07/26/23
metoprolol succinate 25 mg tablet,extended release 24 hr 12.5 mg (1/2 x 25 mg) PO BID 30 days #30 tabs 07/26/23
Review of Systems
-
A 12 point ROS was completed and negative except as noted: Yes
Physical Exam
Vital Signs
Vital Signs
Temp Pulse Resp BP Pulse Ox
97.3 F 90 21 140/82 96
09/21/23 05:50 09/21/23 06:30 09/21/23 06:30 09/21/23 06:22 09/21/23 06:30
Physical exam:
General: Acutely ill
HEENT: Normocephalic, Atraumatic and Moist Mucous Membranes
Respiratory: Coarse crackles in the left base and bilateral rhonchi; Negative Wheezes
Cardiac: Regular Rhythm and S1/S2
GI: Soft, Nontender and Nondistended
Musculoskeletal: No Clubbing, No Cyanosis and No Edema
Neuro: Awake, Alert and Oriented
Psych: Calm
Physical Exam
General: Other
Laboratory Results
-
09/21/23 05:51
09/21/23 05:51
Laboratory Results
Lactic Acid 4.5 mmol/L (0.7-2.0) H* 09/21/23 06:28
Total Bilirubin 1.0 mg/dl (0.2-1.3) 09/21/23 05:51
AST 37 U/L (14-36) H 09/21/23 05:51
ALT 20 U/L (0-35) 09/21/23 05:51
Alkaline Phosphatase 98 U/L (38-126) 09/21/23 05:51
Troponin I < 0.012 ng/ml 09/21/23 05:51
Impression/Plan
-
IMPRESSION:
Patient 68 years old female came into the hospital with shortness of breath and cough likely consistent with sepsis due to pneumonia. Patient has very high risk of morbidity mortality due to her acute presentation and multiple comorbidities. Will
need to be treated in the hospital and monitor for progress and or toxicity.
Echocardiogram on July 2023:
Normal left ventricular chamber size. Moderately reduced left ventricular
systolic function. Left ventricular ejection fraction is 30-35% by cohen's
method. Global hypokinesis with anterior septal, basal inferior, and basal
septal akinesis. The distal septum may be akinetic as well. Normal LV wall
thickness. Stage II diastolic dysfunction suggestive of abnormal relaxation and
increased filling pressures.
Mitral sclerosis without stenosis. Moderate to severe mitral regurgitation.
Indexed LA volume is severely abnormal (> 48 mL/m2).
Structurally normal tricuspid valve. Tricuspid valve opens normally. Mild
tricuspid regurgitation. PA systolic pressure 53 mmHg assuming a right atrial
pressure of 8 mmHg.
Since echocardiogram March 2023 which was reviewed, there is anterior septal
as well as probable distal septal akinesis. Ejection fraction has decreased
from 45% to 30-35%. MR may have worsened slightly from moderate to moderate-
severe.
PLAN:
Acute Hypoxemic Respiratory Failure
- Admit to IMU for further evaluation and treatment.
- Patient presents with leukocytosis, tachycardia, respiratory distress, increased work of breathing, and tachypnea and CXR evidence of patchy lower lobe opacities c/w pneumonia.
- Continue BiPAP. Obtain ABG stat
- Continue IV antibiotics
- IV Lasix given in the ED. Will reevaluate if needed more.
- Seen and evaluated and interpreted by myself and chest x-ray with bilateral opacities.
- Pulmonary consult today ([place] texted pulmonary today)
Sepsis due to Bilateral Pneumonia
Lactic Acidosis secondary to the above
- Patient presents with leukocytosis, tachycardia and tachypnea and CXR evidence of patchy lower lobe opacities c/w pneumonia.
- Will check COVID / influenza negative in the ED.
- Cell count abnormalities may be combination of known MDS / P vera and acute stress.
- Will continue to cover with broad spectrum abx, IV Zosyn and vancomycin
- Follow up culture data and adjust regimen as needed.
- Speech therapy for swallow evaluation. In the meantime keep n.p.o.
ASCVD
Chronic HFrEF, probably an acute component
Paroxysmal Atrial Fibrillation
- IV Lasix given in the ED. Will reevaluate if needed more.
- BNP is elevated but marginally from prior ones.
- Will continue to evaluate volume status
Polycythemia vera
- Increased WBC and platelets which seem very reactive in nature.
- Follow for changes / improvement.
- Follow up trend
Benign Hypertension
- Hold off on antihypertensives she is relatively hypotensive
GERD / Husain's Esophagus
- Will resume PPI down the road
History of Bladder Cancer
- Stable. Prior TURBT and BCG therapy.
- Last cysto was 02/2023 and biopsy was normal at that time.
History of Lung Cancer
- s/p bilateral upper lobectomies - most recent was 7 years ago.
- No recent symptoms or issues in this regard.
- CXR without evidence of mass, etc.
Anxiety / Depression
- Hold OP meds for now.
DVT Prophylaxis: SCDs. Will resume Eliquis when able to tolerate oral
Code Status: Full
Total time spent on today's encounter was 75 minutes which included time spent in counseling the patient/family regarding diagnosis and treatment plan as listed above, goals of care, and symptom management. Case was discussed with nursing staff,
specialists, and care coordinators/case management. All labs and imaging personally reviewed by me. Remainder the time spent in detailed review of previous records, lab data, imaging, and other medical provider documentation.
[2023-09-21] MEDS: VANCOCIN 275 MG IV (07:53)
--- NOTE | 2023-09-21 08:06 | EDRN ---
an ABG was ordered, this RN notified respiratory
--- NOTE | 2023-09-21 08:07 | EDRN ---
the pt was received from previous caustic cresylate shift superintendent RN, the pt is resting in stretcher in the lowest position, side rails up x2, call mcclure within reach, HOB elevated, the pt is currently in NSR in the 80's, currently still on Bipap at 10/5 with Sp02 at
100%, blood cultures sent, ABX hung and running along with IVF bolus per providers orders due to lactic elevation, the pt will be going to IMU, will continue to monitor the pt closely
--- NOTE | 2023-09-21 08:22 | EDRN ---
orders processed by this RN and this RN notified pharmacy
[2023-09-21 08:39] LABS: B.E. -1.4 mmol/L; HCO3 22.8 mmol/L (21-28); O2 Saturation % 99.3 % (94-98); PCO2 36 mmHg (32-35); PO2 128 mmHg (83-108); pH 7.41 (7.35-7.45)
[2023-09-21 09:12] LABS: Glucose - Point of Care 109 mg/dl (70-99)
--- NOTE | 2023-09-21 09:13 | EDRN ---
this RN checked the pts blood glucose and it was 109, this RN notified provider, the pt is not able to eat currently due to being on Bipap, this RN is inquiring about IVF
[2023-09-21 09:16] LABS: Anisocytosis 2+; Hypochromasia 1+; Macrocytosis 1+; Microcytosis 2+; Normal RBC Morphology No; Ovalocytes 1+; Polychromasia 1+
--- NOTE | 2023-09-21 09:16 | EDRN ---
this RN tiger texted Dr. Snell regarding the pts glucose and notified him that the pt is on Bipap and cannot eat until she is weaned off of Bipap, this RN asked Dr. Snell about IVF for the pt until the pt is able to eat, awaiting for a response
[2023-09-21 09:17] LABS: Poikilocytosis Slight
--- NOTE | 2023-09-21 10:05 | EDRN ---
Dr. Snell spoke to this RN and wants the pt to see speech therapy before she eat, this RN notified the provider that the pt is currently still on Bipap, this RN inquired to the provider about weaning the pt off of bipap, awaiting a response
--- NOTE | 2023-09-21 10:45 | EDRN ---
per Dr. Snell, the pt is to see pulmonology first before titrating the pt off of Bipap
--- NOTE | 2023-09-21 10:48 | EDRN ---
the pt is currently resting in stretcher in the lowest position, side rails up x2, call mcclure within reach, HOB elevated, the pt is currently still in NSR in the 70's, last BP 105/70 (80), the pt is currently still on Bipap 02/14 with Sp02 of 100%,
the pt has no complaints at this time, will continue to monitor the pt closely
[2023-09-21 11:21] LABS: COVID-19 Antigen Negative (Negative)
[2023-09-21 11:35] LABS: Glucose - Point of Care 111 mg/dl (70-99)
[2023-09-21 11:38] LABS: Lactic Acid 1.1 mmol/L (0.7-2.0)
--- NOTE | 2023-09-21 12:30 | EDRN ---
the pt pressed the call mcclure and this RN entered the pts room, the pt stated that she needed to urinate, this RN offered the pts a pure wick which the pt was agreeable to, will continue to monitor the pt closely
--- NOTE | 2023-09-21 12:42 | PHA.VAN.IN ---
Assessment
- Assessment
Renal Function: Appears elevated from baseline (07/2023 admission Scr ranged 1.1-1.3)
Maximum Temperature: 98.2 09/21/23 at 11:25
Minimum Temperature: 97.3 09/21/23 at 05:50
Concomitant Antimicrobials: Piperacillin-tazobactam
Plan
- Plan
Initial / Loading Dose: Vancomycin 1250mg x 1 dose (~22mg/kg) given today at 07:53
Maintenance Regimen: Dose by level
Monitoring: Random Vancomycin level ordered for 09/22/23 at 06:00
MRSA Screen: Ordered per protocol (PCR Ordered)
Pharmacokinetics Vancomycin I
- -
Patient Age: 68
Patient Sex: Female
Vancomycin Day #: 1
Indication: Pulmonary/Respiratory
Requesting Provider: Dr. Karime Snell
Pertinent Antimicrobial Allergies:
No antibiotics allergies
Height / Weight:
Height 5 ft 6 in
Actual Weight 57 kg
IBW in k.3
Pertinent Past Medical History: Polycythemia vera, lung ca w/L & R upper lobectomies, CKD, low body wt
- Vital Signs / Lab Results
Temp Pulse Resp BP Pulse Ox
98.2 F 78 20 102/89 100
09/21/23 11:25 09/21/23 12:00 09/21/23 12:00 09/21/23 12:00 09/21/23 12:00
Lab Results - Hematology
09/21/23
05:51
WBC 21.3 H
Lab Results - Chemistry
09/21/23
05:51
BUN 26 H
Creatinine 1.5 H
Albumin 4.0
09/21/23 09/21/23
06:28 10:52
Lactic Acid 4.5 H* 1.1
Microbiology Results
09/21/23 10:52 Influenza Types A & B (MELANIE) - Final
Nasal Swab Negative for Influenza A & B, NAAT
Negative results must be combined with clinical observations
and patient history.
Nucleic Acid Amplification test (NAAT)performed on the
[employer] platform.
[2023-09-21 12:54] LABS: Glycohemoglobin (HgbA1c) 5.6 % (4.0-5.6)
--- NOTE | 2023-09-21 13:48 | EDRN ---
the pt is resting in stretcher in the lowest position, side rails up x2, call mcclure within reach, HOB elevated, the pt is currently still in NSR in the 60-70's, last BP 105/69 (81), the pt is currently still on Bipap at 10/5 and Sp02 currently 100%,
the pt denies any complaints at this time, will continue to monitor the pt closely
--- NOTE | 2023-09-21 14:06 | EDRN ---
Dr. Snell currently at the pts bedside speaking to the pt
--- NOTE | 2023-09-21 14:27 | EDRN ---
per Dr. Snell the pts Bipap was to be discontinued and the pt was to be placed on 6L NC and the pt is to remain on NC unless the pts sp02 dips below 90%, the pts Bipap was removed and 6L NC was placed on the pt, the pts Sp02 on 6L NC is currently
99%, will continue to monitor the pt closely
--- NOTE | 2023-09-21 14:36 | EDRN ---
the pt pressed the call mcclure and this RN entered the pts room, the pt stated to this RN, 'I feel like the pure wick needs to be changed, could you please change it?', this RN and another RN Drea cleaned the pt and changed the pts pad, brief, and
bonilla, will continue to monitor the pt closely
--- NOTE | 2023-09-21 15:00 | EDRN ---
the pt is currently still on 6L NC and Sp02 is 98%, will continue to monitor the pt closely
--- NOTE | 2023-09-21 15:30 | EDRN ---
Carmina not in pyxis, this RN called pharmacy and notified them and they will be tubing zosyn
--- NOTE | 2023-09-21 15:39 | CON.PUL ---
Consultation
Consultation Request
Date/Time Consultation Requested: 09/21
Date/Time Consultation Performed: 09/21
Reason for Consultation: Hypoxia, pneumonia
Medical History
-
History of Present Illness:
History obtained from the chart and from the patient. This is a late entry, consult was completed 09/20 and patient was examined in the ER. 68-year-old female who has been complaining of chronic shortness of breath, worsened recently with chest
congestion, cough. She also describes nocturnal awakenings on the night before presentation. She does have a cardiac history, no active cardiac issues. Upon reviewing prior hospitalization, she seems to present with similar symptoms, similar
radiographic findings. Upon arrival to [facility], afebrile, pulse 75, breathing at 34, 84% saturation. Chest x-ray suggested bilateral patchy infiltrates, patient was given antibiotics and admitted for bilateral pneumonia,
hospital-acquired. We are asked to help from pulmonary standpoint 09/21/2023
When evaluated in the ED, patient felt much improved. Denied chest pain, lightheadedness, dizziness
.
PMH: GERD, hyperglycemia, bilateral lung cancer status post resection 2012 and 2016 at [place], peripheral vascular disease/carotid disease, chronic leukocytosis?, Chronic gait dysfunction, right hip fracture March 2022, coronary disease with
stent in the past, appendectomy,
Past Medical History
Past Medical History: None (See above)
Past Surgical History: None (See above)
Social History
Tobacco: Former Smoker (40+ pack year history of smoking, smoked 2 packs a day up to 20 years, quit 1999)
Alcohol: None
Drug: Marijuana (3 times a week)
Personal:
Living: With Family
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
Family History
Family History: Other (Family history of lung cancer, brother age 50, mother at age 63 from heart attack, father from leukemia at age 64)
Allergies / Home Medications
Allergies
Allergy/AdvReac Type Severity Reaction Status Date / Time
No Known Drug Allergies Allergy NA Verified 02/21/23 08:52
pollen extracts Allergy runny Verified 02/21/23 08:52
nose,itchy
eyes
Home Medications
�Medication �Instructions �Recorded �Confirmed �Last Taken �Type
atorvastatin 80 mg tablet (Lipitor) 80 mg PO HS High cholesterol 04/07/22 09/21/23 09/20/23 History
ezetimibe 10 mg tablet (Zetia) 10 mg PO HS High cholesterol 04/07/22 09/21/23 09/20/23 History
fluoxetine 20 mg capsule (Prozac) 20 mg PO HS Mental Health/Anxiety 04/07/22 09/21/23 09/20/23 History
pantoprazole 40 mg tablet,delayed 40 mg PO DAILY Gastrointestinal 04/07/22 09/21/23 09/20/23 History
release (Protonix) issue
lisinopril 5 mg tablet 2.5 mg PO DAILY Blood Pressure 12/28/22 09/21/23 09/20/23 History
empagliflozin 10 mg tablet 10 mg PO DAILY 'heart protection' 02/18/23 09/21/23 09/20/23 History
(Jardiance)
apixaban 5 mg tablet (Eliquis) 5 mg PO BID Blood Clot 07/22/23 09/21/23 09/20/23 History
Prevention/Tx
clopidogrel 75 mg tablet 75 mg PO DAILY Blood Clot 07/22/23 09/21/23 09/20/23 History
Prevention/Tx
furosemide 20 mg tablet 20 mg PO DAILY Fluid 07/22/23 09/21/23 09/20/23 History
Retention/Swelling
metoprolol succinate 25 mg 12.5 mg (1/2 x 25 mg) PO BID 30 07/26/23 09/21/23 09/20/23 Rx
tablet,extended release 24 hr days #30 tabs
acetaminophen 500 mg tablet 1,000 mg PO BIDPRN PRN mild pain 09/21/23 09/21/23 1 Week Ago History
(Tylenol Extra Strength) ~09/14/23
amiodarone 200 mg tablet 200 mg PO DAILY 09/21/23 09/21/23 09/20/23 History
therapeutic multivitamin 1 tab PO DAILY 09/21/23 09/21/23 09/20/23 History
Review of Systems
Vitals / Labs / Diagnostic Testing
Vital Signs
Temp Pulse Resp BP Pulse Ox
98.5 F 65 19 105/69 100
09/21/23 13:47 09/21/23 13:47 09/21/23 13:47 09/21/23 13:47 09/21/23 13:47
Lab Data
09/21/23 05:51
09/21/23 05:51
Laboratory Results
09/21/23
08:11
pH 7.41
pCO2 36 H
pO2 128 H
HCO3 22.8
O2 Delivery Level Not Reportable
Microbiology
09/21/23 10:52 Nose Nasal Screen MRSA (PCR) - Final
MRSA not detected - performed by PCR methodology.
09/21/23 10:52 Nasal Swab Influenza Types A & B (MELANIE) - Final
Negative for Influenza A & B, NAAT
Negative results must be combined with clinical observations
and patient history.
Nucleic Acid Amplification test (NAAT)performed on the
[employer] platform.
Diagnostic Testing:
Physical Exam
-
HEENT: Normocephalic and Anicteric
Cardiovascular: S1/S2, Regular Rhythm, Murmur (n), Rub (n) and Peripheral Edema (n)
Respiratory: Wheeze (n), Rales (Few bibasilar), Rhonchi (n) and Non-Labored Respirations
GI: Soft, Non Distended and Non Tender
Neurology: Awake, Alert and No Motor Deficits
Skin: Good Color
General: Comfortable
Assessment
-
68-year-old female with complex medical history including bilateral lung cancer with resection 2012 and 2017 at [place], significant smoking history, cardiac disease and peripheral vascular disease with sudden onset shortness of breath. Patient
required BiPAP and chest x-ray showed bilateral infiltrates. We are asked to help from pulmonary standpoint 09/21/2023
Acute hypoxic respiratory insufficiency, 82% room air
Required BiPAP
Bilateral interstitial changes
Heart failure versus pneumonitis, suspect former
elevated proBNP
Elevated lactate
Acute renal insufficiency
Anemia leukocytosis
Hyperglycemia
Moderate to severe eccentric MR
PA pressure 58
History of cardiomyopathy, improved on echo September 2023
Conditions present prior to admission
History of bilateral lung cancer
Bilateral upper lobectomies per imaging
Resection 2012, 2016 at [place] (Dr. Patten)
No chemoradiation therapy
History of coronary disease with stent
30 pound weight loss, unintentional
Family history of lung cancer, leukemia
Plan/recommendations
At this time, patient respiratory status is tenuous but appears to be improved following BiPAP.
Suspect chest x-ray is more consistent with heart failure
elevated proBNP, hypoxia, crackles on exam
Rapid improvement noted
Moving forward
Agree with continued management for hypoxic respiratory failure
Lasix therapy per cardiology
BiPAP nightly and as needed during the day, patient currently off BiPAP
Murmur on exam noted
Echocardiogram 09/12/2023 with normal biventricular function, moderate to severe eccentric mitral regurgitation, PA pressure 58
May require cardiology evaluation if rapid improvement noted
Wean oxygen as able
Patient remains on Zosyn therapy. Low threshold to discontinue depending on follow-up imaging and clinical response
Diabetic, heart failure diet is recommended
Aspiration precautions
Reviewed with patient
Will follow
(Note late entry, patient seen and examined 09/20)
--- NOTE | 2023-09-21 15:45 | EDRN ---
this RN called the receiving unit and notified them that paper report was tubed up
--- NOTE | 2023-09-21 16:35 | PTCARENOTE ---
Pt arrived to rm 409-2 at this time time. Pt AAOX3, denying any pain or SOB. SpO2 99% on 6L of O2 via NC. SR with BBB and PVCs on telemetry, HR 80s-90s. See shift assessment for further detail. Oriented pt to , reporting concerns, plan of care,
medications, call mcclure etc. Call mcclure within reach.
[2023-09-21 18:34] LABS: Glucose - Point of Care 102 mg/dl (70-99)
[2023-09-21] MEDS: ZOSYN 50 IV (18:35)
[2023-09-21] MEDS: FLUSH (NSS) 1 FLUSH IV (18:35)
[2023-09-21] MEDS: ZOFRAN 4 MG IV (18:58)
[2023-09-21 21:24] LABS: Glucose - Point of Care 104 mg/dl (70-99)
[2023-09-22] VITALS (8 sets, daily range): BP systolic 102–132; BP diastolic 53–79; PULSE 76–82; O2SAT 99–100
[2023-09-22] MEDS: ZOSYN 50 IV ×5 (01:01→23:25)
[2023-09-22 06:09] LABS: Glucose - Point of Care 100 mg/dl (70-99)
--- NOTE | 2023-09-22 08:26 | PTOTSP ---
Dysphagia Evaluation
Patient has chronic risk factors for dysphagia (i.e., lung cancer s/p b/l upper lobectomies, GERD with Husain's esophagus) and has had recurrent pneumonias (July 2023, September 2023). She endorsed onset of hiccuping every time she eats which began a
couple of weeks ago but denied other signs of oral/pharyngeal dysphagia or aspiration. Risk for bottom up aspiration is elevated given history. Slight throat clear noted with solids x1 with no overt coughing with PO intake.
Recommend:
1. Regular, Thin Liquids
2. Medications as best tolerated
3. General aspiration and reflux precautions
4. Consider video swallow study if concerned for component of top down aspiration contributing to repeated pneumonias.
5. Consider GI consult if symptoms of hiccuping with eating persist.
[2023-09-22 08:29] LABS: % Basophils 0.5 % (0-2); % Eosinophils 0.1 % (0-6); % Immature Granulocytes 3.6 % (0-0.5); % Lymphocytes 4.6 % (20.5-51.1); % Monocytes 5.6 % (1.7-9.3); % Neutrophils 85.6 % (42.2-75.2); Absolute Basophils 0.1 10^3/uL (0-0.2); Absolute Immature Granulocytes 0.5 10^3/uL (0-0.05); Absolute Lymphocytes 0.6 10^3/uL (1.2-3.4); Absolute Monocytes 0.8 10^3/uL (0.1-0.6); Absolute Neutrophils 11.7 10^3/uL (1.4-6.5); Hematocrit 25.4 % (37.0-47.0); Mean Corp Hgb Conc. 29.9 g/dL (33.0-37.0); Mean Corpuscular Hgb 21.8 pg (27.0-31.0); Mean Corpuscular Volume 72.8 fL (81.0-99.0); Nucleated Red Blood Cells % 0.8 %; Red Blood Cell Count 3.49 10^6/uL (4.20-5.40); Red Cell Dist. Width 27.9 % (11.5-14.5); White Blood Cell Count 13.6 10^3/uL (4.8-10.8)
[2023-09-22 08:42] LABS: Vancomycin Random 6.9 ug/ml
[2023-09-22 08:48] LABS: Blood Urea Nitrogen 22 mg/dl (7-17); Calcium 8.6 mg/dl (8.4-10.2); Carbon Dioxide 24 mmol/L (22-30); Chloride 105 mmol/L (98-107); Estimated Creatinine Clearance 35 ml/min; Glucose 82 mg/dl (70-99); Potassium 4.3 mmol/L (3.5-5.1); Sodium 134 mmol/L (135-145); eGFR 44.51
--- NOTE | 2023-09-22 09:07 | W.PN.HOSP.TC ---
Addendum entered and electronically signed by Jacoby Snell MD 09/22/23 17:57:
Hold off on IV Lasix tonight since patient oxygenation improved back to room air. Continue oral diuretics and continue to reassess and home oxygen needs.
Original Note:
Today's Communication/Plan
-
Continue IV antibiotics. Continue diuretics. Repeat chest x-ray tomorrow. Monitor hemoglobin.
Assessment / Plan
Assessment / Plan
Physical exam:
General: Acutely ill
HEENT: Normocephalic, Atraumatic and Moist Mucous Membranes
Respiratory: Coarse crackles on both bases but less than before and bilateral rhonchi; Negative Wheezes
Cardiac: Regular Rhythm and S1/S2, systolic murmur
GI: Soft, Nontender and Nondistended
Musculoskeletal: No Clubbing, No Cyanosis and No Edema
Neuro: Awake, Alert and Oriented
Psych: Calm
A/P:
Echocardiogram on July 2023:
Normal left ventricular chamber size. Moderately reduced left ventricular
systolic function. Left ventricular ejection fraction is 30-35% by cohen's
method. Global hypokinesis with anterior septal, basal inferior, and basal
septal akinesis. The distal septum may be akinetic as well. Normal LV wall
thickness. Stage II diastolic dysfunction suggestive of abnormal relaxation and
increased filling pressures.
Mitral sclerosis without stenosis. Moderate to severe mitral regurgitation.
Indexed LA volume is severely abnormal (> 48 mL/m2).
Structurally normal tricuspid valve. Tricuspid valve opens normally. Mild
tricuspid regurgitation. PA systolic pressure 53 mmHg assuming a right atrial
pressure of 8 mmHg.
Since echocardiogram March 2023 which was reviewed, there is anterior septal
as well as probable distal septal akinesis. Ejection fraction has decreased
from 45% to 30-35%. MR may have worsened slightly from moderate to moderate-
severe.
Echocardiogram on September 2023:
1. Left ventricle: Mildly dilated with low normal to mildly reduced LVEF
visually estimated 50-55% and 49% by Cohen's method of disks. Stage II
diastolic dysfunction.
2. Right ventricle: Normal
3. Atria: Severe left atrial dilation
4. Mitral valve: Moderate to severe eccentric mitral regurgitation
5. Aortic valve: Trileaflet. Mild aortic insufficiency
6. Tricuspid valve: Moderate tricuspid regurgitation with estimated pulmonary
artery systolic pressures of 58 mmHg
7. In comparison to most recent echocardiogram from 07/21/2013, the LVEF has
improved from 30-35% to 49% by Cohen's method of disks. The studies are
otherwise fairly similar
PLAN:
Acute Hypoxemic Respiratory Failure likely related to pneumonia and heart failure
-Currently on supplemental oxygen. From 6 L down to to 3 L today. Titrate as able
- Continue IV antibiotics but streamline today.
- IV Lasix given in the ED. Will reevaluate if needed more IV.
- Seen and evaluated and interpreted by myself and chest x-ray with bilateral opacities.
- Pulmonary consult appreciated. Discussed with pulmonary today on 09/21.
Sepsis due to Bilateral Pneumonia
Lactic Acidosis secondary to the above
- Patient presents with leukocytosis, tachycardia and tachypnea and CXR evidence of patchy lower lobe opacities c/w pneumonia.
- WBC trending down today from 21 down to 13.6
- Lactic acid 4.5 down to 1.1
- Plan to repeat chest x-ray tomorrow
- Checked COVID / influenza all negative in the ED.
- Cell count abnormalities may be combination of known MDS / P vera and acute stress.
- Will continue to cover with broad spectrum abx, IV Zosyn. MRSA negative so discontinue vancomycin today.
- Follow up culture data and adjust regimen as needed.
- Speech therapy for swallow evaluation recommended regular diet today.
Anemia
Hemoglobin 7.6 from 9.7 upon admission
Repeat hemoglobin today and hemoglobin stable at 7.9
Hold anticoagulants/antiplatelets for now
Proceed to anemia workup
Hemoptysis
Quantify hemoptysis. Appears to be mild per patient recall.
Pulmonary on board
Might require CT of the chest if continues or worsens.
ASCVD
Acute on chronic HFrEF and valvulopathy
Paroxysmal Atrial Fibrillation
- IV Lasix given in the ED. Will reevaluate if needed more. Restarted oral diuretics today. One time dose IV today.
- BNP is elevated but marginally from prior ones.
- Will continue to evaluate volume status
Polycythemia vera
- Increased WBC and platelets which seem very reactive in nature. WBC trending down today from 21 down to 13.6
- Follow for changes / improvement.
- Follow up trend
Benign Hypertension
- Holding off on antihypertensives upon admission since she was relatively hypotensive but will restart today with holding parameters except ERICKA inhibitor that can be started tomorrow with holding parameters as well.
- On metoprolol succinate 12.5 mg twice a day and lisinopril 2.5 mg p.o. daily
GERD / Husain's Esophagus
- Will resume PPI today
History of Bladder Cancer
- Stable. Prior TURBT and BCG therapy.
- Last cysto was 02/2023 and biopsy was normal at that time.
History of Lung Cancer
- s/p bilateral upper lobectomies - most recent was 7 years ago.
- No recent symptoms or issues in this regard.
- CXR without evidence of mass, etc. Repeat chest x-ray in a.m.
Anxiety / Depression
-Restart meds.
DVT Prophylaxis: SCDs. Hold Eliquis due to worsening anemia but restart as soon as stable and etiology clarified.
Code Status: Full
Total time spent on today's encounter was 52 minutes which included time spent in counseling the patient/family regarding diagnosis and treatment plan as listed above, goals of care, and symptom management. Case was discussed with nursing staff,
specialists, and care coordinators/case management. All labs and imaging personally reviewed by me. Remainder the time spent in detailed review of previous records, lab data, imaging, and other medical provider documentation.
Anticipated Discharge: > 48 hours
Subjective/Interval History
-
Date of Service: September 22, 2023
Less cough and shortness of breath and feels better overall today. Patient is having mild hemoptysis. No melena or hematemesis or bright blood per rectum. Afebrile
Objective Data
-
Labs:
Laboratory Results
09/22/23
07:35
WBC Pending
Hgb Pending
Hct Pending
Plt Count Pending
Sodium 134 L
Potassium 4.3
Chloride 105
Carbon Dioxide 24
BUN 22 H
Creatinine 1.3 H
Glucose 82
Calcium 8.6
Vital Signs:
Vital Signs
Temp Pulse Resp BP Pulse Ox
98.2 F 76 16 111/55 99
09/22/23 07:08 09/22/23 07:08 09/22/23 07:08 09/22/23 07:08 09/22/23 07:08
I&O
09/21/23 09/22/23 09/23/23
06:59 06:59 06:59
Intake Total 50 / 50
Output Total 275 / 275
Balance -225 / -225
[2023-09-22 09:18] LABS: Hemoglobin 7.6 g/dL (12.0-16.0)
[2023-09-22 09:56] LABS: Platelet Count 425 10^3/uL (130-400)
[2023-09-22] MEDS: PACERONE 200 MG PO (10:57)
[2023-09-22] MEDS: TOPROL XL 12.5 MG PO ×2 (10:57→20:58)
[2023-09-22] MEDS: PROTONIX 40 MG PO (10:57)
[2023-09-22] MEDS: LASIX 20 MG PO (10:59)
[2023-09-22] MEDS: JARDIANCE 10 MG PO (11:00)
[2023-09-22] MEDS: ELIQUIS PO (11:01)
[2023-09-22 11:28] LABS: Hematocrit 24.8 % (37.0-47.0); Hemoglobin 7.9 g/dL (12.0-16.0); Reticulocyte Count 2.5 % (0.4-2.8)
--- NOTE | 2023-09-22 11:39 | CM ---
IA completed with pt.
Pt is a 68 yr old female admitted with PNE.
At baseline, pt lives with a friend in a 1 story home and 4 steps to enter.
Pt at baseline is indep and driving.
Pt does have DME in the home (RW, shower chair, crutches,cane) from a past hip fx but does not currently use any.
Pt has used [facility] and has been to [facility] post hip fx
Pt comments that there at many animals in the home that she thinks may attribute to her repeated illnesses.
Currently on O2
PCP; Carlita Kwon
Pharm; [facility]
PLAN; continue to follow and follow O2 needs
[2023-09-22 11:49] LABS: ALT (SGPT) 21 U/L (0-35); AST (SGOT) 38 U/L (14-36); Albumin 3.3 g/dl (3.5-5.0); Alkaline Phosphatase 69 U/L (38-126); Direct Bilirubin 0.4 mg/dl (0.0-0.4); Iron 44 ug/dl (37-170); Total Bilirubin 1.4 mg/dl (0.2-1.3); Total Protein 5.6 g/dl (6.3-8.2)
[2023-09-22 11:56] LABS: Glucose - Point of Care 121 mg/dl (70-99)
[2023-09-22 11:58] LABS: Percent Saturation 13 % (20-50); Total Iron Binding Capacity 336 ug/dl (265-497)
[2023-09-22 12:24] LABS: Ferritin 28.6 ng/ml (11.1-264.0)
[2023-09-22 12:56] LABS: Folate 5.8 ng/ml (2.76-20); Vitamin B12 835 pg/ml (239-931)
--- NOTE | 2023-09-22 14:44 | W.PN.PUL3 ---
Today's Communication / Plan
-
Chest x-ray in the morning
Continue antibiotics for now
Nocturnal on BiPAP
Follow hemoglobin
May require cardiology evaluation
Assessment
-
68-year-old female with complex medical history including bilateral lung cancer with resection 2012 and 2016 at [facility], significant smoking history, cardiac disease and peripheral vascular disease with sudden onset shortness of breath. Patient
required BiPAP and chest x-ray showed bilateral infiltrates. We are asked to help from pulmonary standpoint 09/21/2023
Acute hypoxic respiratory insufficiency, 82% room air
Required BiPAP
Bilateral interstitial changes
Heart failure versus pneumonitis, suspect former
elevated proBNP
Elevated lactate
Acute renal insufficiency
Anemia leukocytosis
Hyperglycemia
Moderate to severe eccentric MR
PA pressure 58
History of cardiomyopathy, improved on echo September 2023
Conditions present prior to admission
History of bilateral lung cancer
Bilateral upper lobectomies per imaging
Resection 2012, 2016 at [facility] (Dr. Patten)
No chemoradiation therapy
History of coronary disease with stent
30 pound weight loss, unintentional
Family history of lung cancer, leukemia
Plan/recommendations
At this time, patient respiratory status is tenuous but appears to be improved following BiPAP.
Suspect chest x-ray is more consistent with heart failure
elevated proBNP, hypoxia, crackles on exam
Rapid improvement noted
Chest exam improved
Drop in hemoglobin noted
Moving forward
Agree with continued management for hypoxic respiratory failure
Lasix therapy per cardiology
BiPAP nightly and as needed during the day
Murmur on exam noted
Echocardiogram 09/12/2023 with normal biventricular function, moderate to severe eccentric mitral regurgitation, PA pressure 58
May require cardiology evaluation if rapid improvement noted
Suspect presentation may be from intermittent pulm edema?
Hemoptysis noted x 1
Hemoglobin drop noted
Quantify hemoptysis for now
Doubt DAH but this will be followed closely
Wean oxygen as able
Patient remains on Zosyn therapy. Low threshold to discontinue depending on follow-up imaging and clinical response
Continue for now
Will check chest x-ray in a.m.
Diabetic, heart failure diet is recommended
Aspiration precautions
Reviewed with patient, reviewed with primary service
Subjective Data
-
Date of Service:
Date of Service: September 22, 2023
Subjective:
Patient feels improved this morning. She has mild cough, admitted to coughing up a bloody plug with dark mucus. She denies chest pain, lightheadedness, wheezing. Appears to be in good spirits
Objective Data
Data Reviewed
Vital Signs / I&O / Oxygen:
Vital Signs
Temp Pulse Resp BP Pulse Ox
98.6 F 70 18 106/53 99
09/22/23 11:38 09/22/23 11:38 09/22/23 11:38 09/22/23 11:38 09/22/23 11:38
Intake and Output
09/21/23 09/22/23 09/23/23
06:59 06:59 06:59
Intake Total 50 / 50
Output Total 275 / 275
Balance -225 / -225
SaO2 99
Nasal Cannula flow liters per 3
minute
Physical Exam
General: Comfortable
HEENT: Normocephalic and Anicteric
Cardiovascular: S1-S2, Regular Rhythm and Murmur (2/6 at apex)
Respiratory: Wheeze (n), Crackles (Mild bibasilar), Rhonchi (n) and Non-Labored Respirations
GI: Soft, Non Distended and Non Tender
Neurology: Awake, Alert and No Motor Deficits (Able to sit up without assistance)
Skin: Cyanosis (n), Jaundice (n) and Rash (n)
Labs/Micro/Reports
Lab Data
09/22/23 11:14
09/22/23 07:35
Microbiology
09/21/23 06:28 Blood/Venous Blood Culture - Preliminary
No Growth in 24 hours- Final report to follow
09/21/23 07:56 Blood/Venous Blood Culture - Preliminary
No Growth in 24 hours- Final report to follow
09/21/23 07:56 Blood/Venous Blood Culture - Preliminary
No Growth in 24 hours- Final report to follow
09/21/23 17:26 Urine Legionella Urinary Antigen - Final
Negative for Legionella pneumophila Serogroup 1 antigen.
A negative result does not rule out the possiblity of
Legionella infection due to other serogroups or species of
Legionella. Clinical correlation is recommended.
09/21/23 17:26 Urine Streptococcus pneumoniae Antigen (M - Final
Negative for Streptococcus pneumoniae antigen.
A negative result does not exclude infection with
Streptococcus pneumoniae. Clinical correlation is
recommended.
09/21/23 06:28 Blood/Venous Blood Culture - Preliminary
No Growth in 24 hours- Final report to follow
09/21/23 10:52 Nose Nasal Screen MRSA (PCR) - Final
MRSA not detected - performed by PCR methodology.
09/21/23 10:52 Nasal Swab Influenza Types A & B (MELANIE) - Final
Negative for Influenza A & B, NAAT
Negative results must be combined with clinical observations
and patient history.
Nucleic Acid Amplification test (NAAT)performed on the
[employer] platform.
[2023-09-22 17:06] LABS: Glucose - Point of Care 111 mg/dl (70-99)
[2023-09-22] MEDS: PROZAC 20 MG PO (20:58)
[2023-09-22] MEDS: LIPITOR 80 MG PO (20:59)
[2023-09-22] MEDS: ZETIA 10 MG PO (20:59)
[2023-09-22 21:17] LABS: Glucose - Point of Care 182 mg/dl (70-99)
[2023-09-23] VITALS (9 sets, daily range): BP systolic 95–136; BP diastolic 54–72; BMI 21.7
[2023-09-23] MEDS: ZOSYN 50 IV ×4 (05:17→23:02)
[2023-09-23 07:39] LABS: % Basophils 0.6 % (0-2); % Eosinophils 0.2 % (0-6); % Immature Granulocytes 2.8 % (0-0.5); % Lymphocytes 7.6 % (20.5-51.1); % Monocytes 6.6 % (1.7-9.3); % Neutrophils 82.2 % (42.2-75.2); Absolute Basophils 0.1 10^3/uL (0-0.2); Absolute Immature Granulocytes 0.3 10^3/uL (0-0.05); Absolute Lymphocytes 0.9 10^3/uL (1.2-3.4); Absolute Monocytes 0.8 10^3/uL (0.1-0.6); Absolute Neutrophils 9.8 10^3/uL (1.4-6.5); Hemoglobin 7.3 g/dL (12.0-16.0); Mean Corp Hgb Conc. 30.4 g/dL (33.0-37.0); Mean Corpuscular Hgb 21.7 pg (27.0-31.0); Mean Corpuscular Volume 71.4 fL (81.0-99.0); Nucleated Red Blood Cells % 0.8 %; Platelet Count 413 10^3/uL (130-400); Red Blood Cell Count 3.36 10^6/uL (4.20-5.40); Red Cell Dist. Width 27.9 % (11.5-14.5)
[2023-09-23 07:53] LABS: Glucose - Point of Care 112 mg/dl (70-99)
[2023-09-23 08:04] LABS: Blood Urea Nitrogen 19 mg/dl (7-17); Calcium 8.5 mg/dl (8.4-10.2); Carbon Dioxide 26 mmol/L (22-30); Chloride 103 mmol/L (98-107); Estimated Creatinine Clearance 35 ml/min; Glucose 92 mg/dl (70-99); Magnesium 2.2 mg/dl (1.6-2.3); Potassium 3.9 mmol/L (3.5-5.1); Sodium 136 mmol/L (135-145); eGFR 44.51
[2023-09-23 08:44] LABS: Normal RBC Morphology No
[2023-09-23 08:49] LABS: Anisocytosis 2+; Microcytosis 2+; Ovalocytes 1+; Polychromasia 1+; Tear Drop Red Blood Cells 1+
[2023-09-23] MEDS: TOPROL XL 12.5 MG PO ×2 (09:01→20:02)
[2023-09-23] MEDS: ZESTRIL 2.5 MG PO (09:01)
[2023-09-23] MEDS: PROTONIX 40 MG PO (09:01)
[2023-09-23] MEDS: LASIX 20 MG PO (09:01)
[2023-09-23] MEDS: JARDIANCE 10 MG PO (09:01)
[2023-09-23] MEDS: PACERONE 200 MG PO (09:01)
--- NOTE | 2023-09-23 11:05 | W.PN.HOSP.TC ---
Today's Communication/Plan
-
see AP
Assessment / Plan
Assessment / Plan
Echocardiogram on September 2023:
1. Left ventricle: Mildly dilated with low normal to mildly reduced LVEF visually estimated 50-55% and 49% by Goldstein's method of disks. Stage II diastolic dysfunction.
2. Right ventricle: Normal
3. Atria: Severe left atrial dilation
4. Mitral valve: Moderate to severe eccentric mitral regurgitation
5. Aortic valve: Trileaflet. Mild aortic insufficiency
6. Tricuspid valve: Moderate tricuspid regurgitation with estimated pulmonary artery systolic pressures of 58 mmHg
7. In comparison to most recent echocardiogram from 07/21/2013, the LVEF has improved from 30-35% to 49% by Goldstein's method of disks. The studies are otherwise fairly similar
A/P:
# Acute Hypoxemic Respiratory Failure likely related to pneumonia and heart failure, resolved
Weaned off O2 support, back to RA
Pulmonary consult appreciated.
# Sepsis POA due to Bilateral Pneumonia
# Lactic Acidosis secondary to the above, resolved
Admission CXR with patchy lower lobe opacities c/w pneumonia.
repeat CXR 09/22 with interval improvement of patchy bilateral airspace disease. No new alveolar opacities. No pleural effusions.
COVID / influenza negative, MRSA screen negative
Cont with broad spectrum abx IV Zosyn x 5 days
Cleared for solid and thin liquid per SPL eval
# Anemia
Hemoglobin 7.3 today from 9.7 on admission
Hold anticoagulants/antiplatelets for now
ferritin low indicating iron deficiency, start IV iron
Would also transfuse 1 unit PRBC
B12/folate WNL
GI CS
# CKD stage 3
SCr 1.3, at baseline
# Mild hemoptysis, resolved
# ASCVD
# Acute on chronic HFrEF and valvulopathy
# Paroxysmal Atrial Fibrillation
# CAD s/p stents to circumflex 2010 and mid LAD stent in 11/05/22
BNP is elevated but marginally from prior ones.
s/p IV Lasix. Restarted oral diuretic Lasix 20 mg daily
Continue to evaluate volume status
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
# Polycythemia vera
Increased WBC and platelets which seem very reactive in nature.
# Benign Hypertension
Restarted [employer] low dose lisinopril 2.5 mg daily and low dose Toprol 12.5 mg twice a day
# GERD / Husain's Esophagus
Resumed PPI
# History of Bladder Cancer, Stable.
# Prior TURBT and BCG therapy.
Last cysto was 02/2023 and biopsy was normal at that time.
# History of Lung Cancer s/p bilateral upper lobectomies - most recent was 7 years ago.
No recent symptoms or issues in this regard.
CXR without evidence of mass, etc. Repeat chest x-ray in a.m.
# Anxiety / Depression
Restart meds.
DVT Prophylaxis: SCDs. Hold Eliquis due to worsening anemia but restart as soon as stable and etiology clarified.
Code Status: Full
DW RN
total time spent 51 min
Anticipated Discharge: 24 - 48 hours
Subjective/Interval History
-
Date of Service: September 23, 2023
Objective Data
-
Labs:
Laboratory Results
09/23/23
05:53
WBC 12.0 H
Hgb 7.3 L
Hct 24.0 L
Plt Count 413 H
Sodium 136
Potassium 3.9
Chloride 103
Carbon Dioxide 26
BUN 19 H
Creatinine 1.3 H
Glucose 92
Calcium 8.5
Vital Signs:
Vital Signs
Temp Pulse Resp BP Pulse Ox
37.2 C 71 16 115/63 100
09/23/23 07:55 09/23/23 07:55 09/23/23 07:55 09/23/23 07:55 09/23/23 07:55
I&O
09/22/23 09/23/23 09/24/23
06:59 06:59 06:59
Intake Total 50 / 50 710 / 710
Output Total 275 / 275
Balance -225 / -225 710 / 710
Review of Systems
-
All other systems: Reviewed and negative
Respiratory: Denies Cough, Hemoptysis or Trouble Breathing
Physical Exam
-
General: Well Developed, Well Nourished, No Apparent Distress and Comfortable
HEENT: Normocephalic and Atraumatic
Respiratory: Clear to Auscultation and Non Labored Respirations; Negative Accessory Resp Muscle Use
Cardiac: Regular Rhythm and S1/S2
GI: Soft and Nontender
Neuro: Awake, Alert and Oriented
Psych: Calm and Intact Judgement/Insight
Data Reviewed
-
Diagnostic Radiology: Image personally visualized and interpreted and Report Reviewed by me
Labs: Labs Reviewed by me
[2023-09-23 11:49] LABS: Glucose - Point of Care 101 mg/dl (70-99)
--- NOTE | 2023-09-23 12:17 | W.PN.PUL3 ---
Today's Communication / Plan
-
Receiving iron infusion, possible transfusion per team
SOB is better but noted with exertion
She is maintained on PO lasix
Can transition abx to PO to complete 5-7 day course
Outpatient pulmonary FU recommended to further eval SOB
Discharge planning per team if counts are stable
Assessment
-
68-year-old female with complex medical history including bilateral lung cancer with resection 2012 and 2016 at [place], significant smoking history, cardiac disease and peripheral vascular disease with sudden onset shortness of breath. Patient
required BiPAP and chest x-ray showed bilateral infiltrates. We are asked to help from pulmonary standpoint 09/21/2023
Acute hypoxic respiratory insufficiency, 82% room air
Required BiPAP
Bilateral interstitial changes
Heart failure versus pneumonitis, suspect former
elevated proBNP
Elevated lactate
Acute renal insufficiency
Anemia leukocytosis
Hyperglycemia
Moderate to severe eccentric MR
PA pressure 58
History of cardiomyopathy, improved on echo September 2023
Conditions present prior to admission
History of bilateral lung cancer
Bilateral upper lobectomies per imaging
Resection 2012, 2016 at [facility] (Dr. Patten)
No chemoradiation therapy
History of coronary disease with stent
30 pound weight loss, unintentional
Family history of lung cancer, leukemia
Plan/recommendations
At this time, patient respiratory status is improved
Now on room air
Still feels some LIRA when ambulating
Suspect chest x-ray is more consistent with heart failure
Elevated proBNP, hypoxia, crackles on exam
Rapid improvement noted
Chest exam improved
She is on PO lasix
Moving forward
Agree with continued management for hypoxic respiratory failure
Lasix therapy per cardiology
BiPAP nightly and as needed during the day
Murmur on exam noted
Echocardiogram 09/12/2023 with normal biventricular function, moderate to severe eccentric mitral regurgitation, PA pressure 58
May require cardiology evaluation if rapid improvement noted
Hemoptysis noted x 1
Hemoglobin drop noted
Receiving iron infusion, and likely transfusion per team
Patient remains on Zosyn therapy. Low threshold to discontinue depending on follow-up imaging and clinical response
CXR improved
Can transition to oral abx therapy to complete 5-7 days
Diabetic, heart failure diet is recommended
Aspiration precautions
Reviewed with patient, reviewed with primary service
SOB eval ongoing, we discussed further outpatient FU would be needed
Discharge planning per team
Diagnostic Data
CXR 09/23/23- Interval improvement of patchy bilateral airspace disease. No new alveolar opacities. No pleural effusions.
CT chest 07/21/23- IMPRESSION:
1. No evidence of pulmonary embolism.
2. Findings consistent with CHF and moderate pulmonary interstitial edema. Superimposed pneumonia in the lower lobes not definitely excluded.
3. New area of lung herniation involving the lingula.
ECHO 09/12/23: CONCLUSIONS
1. Left ventricle: Mildly dilated with low normal to mildly reduced LVEF visually estimated 50-55% and 49% by Goldstein's method of disks. Stage II diastolic dysfunction.
2. Right ventricle: Normal
3. Atria: Severe left atrial dilation
4. Mitral valve: Moderate to severe eccentric mitral regurgitation
5. Aortic valve: Trileaflet. Mild aortic insufficiency
6. Tricuspid valve: Moderate tricuspid regurgitation with estimated pulmonary artery systolic pressures of 58 mmHg
7. In comparison to most recent echocardiogram from 07/21/2013, the LVEF has improved from 30-35% to 49% by Goldstein's method of disks. The studies are otherwise fairly similar
Subjective Data
-
Date of Service:
Date of Service: September 23, 2023
Chief Complaint: Pulmonary Follow Up
Subjective:
no new events, remains stable on room air
she does feel LIRA is ongoing, fatigue
receiving iron infusion now
Objective Data
Data Reviewed
Vital Signs / I&O / Oxygen:
Vital Signs
Temp Pulse Resp BP Pulse Ox
98.2 F 73 16 114/68 100
09/23/23 11:55 09/23/23 11:55 09/23/23 11:55 09/23/23 11:55 09/23/23 11:55
Intake and Output
09/22/23 09/23/23 09/24/23
06:59 06:59 06:59
Intake Total 50 / 50 710 / 710
Output Total 275 / 275
Balance -225 / -225 710 / 710
SaO2 100
Nasal Cannula flow liters per 2
minute
Physical Exam
General: Comfortable
HEENT: Normocephalic and Anicteric
Cardiovascular: S1-S2, Regular Rhythm and Murmur (2/6 at apex)
Respiratory: Clear, Wheeze (n), Rhonchi (n) and Non-Labored Respirations
GI: Soft, Non Distended and Non Tender
Neurology: Awake, Alert, Oriented, AO x 3 and No Motor Deficits (Able to sit up without assistance)
Skin: Cyanosis (n), Jaundice (n) and Rash (n)
Labs/Micro/Reports
Lab Data
09/23/23 05:53
09/23/23 05:53
Microbiology
09/21/23 06:28 Blood/Venous Blood Culture - Preliminary
No Growth in 48 hours- Final report to follow
09/21/23 07:56 Blood/Venous Blood Culture - Preliminary
No Growth in 48 hours- Final report to follow
09/21/23 07:56 Blood/Venous Blood Culture - Preliminary
No Growth in 48 hours- Final report to follow
09/21/23 06:28 Blood/Venous Blood Culture - Preliminary
No Growth in 48 hours- Final report to follow
09/21/23 17:26 Urine Legionella Urinary Antigen - Final
Negative for Legionella pneumophila Serogroup 1 antigen.
A negative result does not rule out the possiblity of
Legionella infection due to other serogroups or species of
Legionella. Clinical correlation is recommended.
09/21/23 17:26 Urine Streptococcus pneumoniae Antigen (M - Final
Negative for Streptococcus pneumoniae antigen.
A negative result does not exclude infection with
Streptococcus pneumoniae. Clinical correlation is
recommended.
09/21/23 10:52 Nose Nasal Screen MRSA (PCR) - Final
MRSA not detected - performed by PCR methodology.
09/21/23 10:52 Nasal Swab Influenza Types A & B (MELANIE) - Final
Negative for Influenza A & B, NAAT
Negative results must be combined with clinical observations
and patient history.
Nucleic Acid Amplification test (NAAT)performed on the
[employer] platform.
[2023-09-23] MEDS: FERRLECIT 110 MG IV (13:20)
--- NOTE | 2023-09-23 15:17 | CON.GI ---
Addendum entered and electronically signed by Lauren Lancaster MD 09/23/23 18:43:
I saw and examined the patient.
The AUTOMOBILE LIGHTS ASSEMBLER's note was reviewed and I agree with the note.
--B/L Pneumonia
-- Microcytic iron deficiency anemia
-- Recent dark stool. Today examination brown [id number] by AUTOMOBILE LIGHTS ASSEMBLER
- workup for anemia [address] Jurado-including EGD/colonoscopy/capsule- details below
-- A-fib on Eliquis
-CAD with stent on Plavix
-- History of lung cancer/bladder cancer
plan
Continue monitor H&H
Agree with transfusion and IV iron
Continue PPI.
No overt GI bleeding at present. Heme test negative today .will hold off on repeating endoscopy on this admission
Okay to resume from GI standpoint-Eliquis/Plavix
Follow-up with GI as outpatient
Hematology evaluation as outpatient
Will sign off. Please call us back if any question
Original Note:
Consultation
-
Date/Time Consultation Requested: 09/23/23 1125
Date/Time Consultation Performed: 09/23/23 1515
Requesting Provider: zara Gresham MD
Performing Provider: BOB Cornejo , Lauren Lancastre MD
Reason for Consultation: anemia
Medical History
Chief Complaint / HPI
Chief Complaint: anemia
History of Present Illness:
This patient is a 67-year-old woman with a history of a Lung CA with resection, recent bladder tumor removal and subsequent removal of hematoma, atrial fibrillation on chronic Eliquis, cardiac stents with Plavix therapy, lung cancer, hypertension,
CAD with stents, GERD, CHF, CKD, with now admission with PNA. She in noted with drop in hbg with initial hbg in July 13.2 then down to 9.1 mid July, 9.7 on admission 09/20 and down to 7.3 with brown heme neg stool and also report of hemoptysis
She was seen last year for similar symptoms with anemia. She completed EGD with Dr. Boyer short segment [facility], single gastric polyp bx + focal intestinal metaplasia no dysplasia and colonoscopy with diverticulosis 2 3mm polyp AC, 1
3 mm polyp sigmoid, post polypectomy scar with some adjacent mucosal finding of nodularity ? residual and IH. bx TA and scar area with fragments of hyperplastic changes and mild edema no residual adenoma presents. She also completed capsule with
normal findings. She states since last year multiple DH admission. He last admission in July 2023 she was noted with hypoxemia requiring intubation and afib with RVR. She reports after discharge passing black stools after discharge that resolved
and Now she is noted with orange brown stool.
She currently admits to vomiting bilious material about 1 time per week. She denies dysphagia, GERD, abdominal pain, diarrhea, constipation or red stools. Per staff notes stools brown red tinged and heme neg. No hematuria or vaginal bleeding.
No NSAID use.
Past Medical History
Past Medical History: Arrhythmias (afib), CAD, Cancer (lung CA with resection bladder CA), CHF, GERD, HTN, Hypercholesterolemia, Renal Failure (CKD), Valvular Disease (MR), Psychiatric (depression/anxiety ) and Other (polycythemia vera)
Past Surgical History: Appendectomy, Cardiac (PTCA stent), , Orthopedic (femur ORIF), Urological (TURBT) and Other (left and right upper lobectomy, radial pseudoaneurysm with repair, cochlear implant )
Social History
Tobacco: Former Smoker (quit 25 years ago)
Alcohol: Former (quit 19 years ago)
Drug: Marijuana
Living: Other (with someone )
Employment: Retired
Family History
Family History: Other (no family hx colon Ca or polyps)
Allergies / Home Medications
Allergy/AdvReac Type Severity Reaction Status Date / Time
No Known Drug Allergies Allergy NA Verified 02/21/23 08:52
pollen extracts Allergy runny Verified 02/21/23 08:52
nose,itchy
eyes
�Medication �Instructions �Recorded
atorvastatin 80 mg tablet (Lipitor) 80 mg PO HS High cholesterol 04/07/22
ezetimibe 10 mg tablet (Zetia) 10 mg PO HS High cholesterol 04/07/22
fluoxetine 20 mg capsule (Prozac) 20 mg PO HS Mental Health/Anxiety 04/07/22
pantoprazole 40 mg tablet,delayed 40 mg PO DAILY Gastrointestinal 04/07/22
release (Protonix) issue
lisinopril 5 mg tablet 2.5 mg PO DAILY Blood Pressure 12/28/22
empagliflozin 10 mg tablet 10 mg PO DAILY 'heart protection' 02/18/23
(Jardiance)
apixaban 5 mg tablet (Eliquis) 5 mg PO BID Blood Clot 07/22/23
Prevention/Tx
clopidogrel 75 mg tablet 75 mg PO DAILY Blood Clot 07/22/23
Prevention/Tx
furosemide 20 mg tablet 20 mg PO DAILY Fluid 07/22/23
Retention/Swelling
metoprolol succinate 25 mg 12.5 mg (1/2 x 25 mg) PO BID 30 07/26/23
tablet,extended release 24 hr days #30 tabs
acetaminophen 500 mg tablet 1,000 mg PO BIDPRN PRN mild pain 09/21/23
(Tylenol Extra Strength)
amiodarone 200 mg tablet 200 mg PO DAILY 09/21/23
therapeutic multivitamin 1 tab PO DAILY 09/21/23
Review of Systems
-
History Source: Patient
Constitutional: Reports Weight Loss (over time )
EENT: Reports No Symptoms
Respiratory: Reports Cough and Hemoptysis (x 1 with black tinged secretions )
Cardiac: Reports No Symptoms
Abdomen/GI: Reports Nausea, Vomiting, Diarrhea, Constipated and Black Stools
: Reports No Symptoms
Musculoskeletal: Reports No Symptoms
Skin: Reports No Symptoms
Neurological: Reports Weakness
Endocrine: Reports No Symptoms
Hematologic/Lymphatic: Reports No Symptoms
Vital Signs
Temp Pulse Resp BP Pulse Ox
97.7 F 68 16 95/54 100
09/23/23 15:11 09/23/23 15:11 09/23/23 15:11 09/23/23 15:11 09/23/23 11:55
Physical Exam
Exam
General: Well Developed and Well Nourished
HEENT: Normocephalic and Anicteric
Respiratory: Wheezes
Cardiac: Regular Rhythm
GI: Soft
Rectal: Brown and Hem Negative
Musculoskeletal: No Clubbing and No Cyanosis
Skin: Warm and Dry
Neuro: Awake, Alert and AO x 3
Psych: Calm
Results
WBC 12.0 10^3/uL (4.8-10.8) H 09/23/23 05:53
Hgb 7.3 g/dL (12.0-16.0) L 09/23/23 05:53
Hct 24.0 % (37.0-47.0) L 09/23/23 05:53
MCV 71.4 fL (81.0-99.0) L 09/23/23 05:53
Plt Count 413 10^3/uL (130-400) H 09/23/23 05:53
Absolute Neuts (auto) 9.8 10^3/uL (1.4-6.5) H 09/23/23 05:53
Sodium 136 mmol/L (135-145) 09/23/23 05:53
Potassium 3.9 mmol/L (3.5-5.1) 09/23/23 05:53
Chloride 103 mmol/L (98-107) 09/23/23 05:53
Carbon Dioxide 26 mmol/L (22-30) 09/23/23 05:53
BUN 19 mg/dl (7-17) H 09/23/23 05:53
Creatinine 1.3 mg/dL (0.6-1.0) H 09/23/23 05:53
Calcium 8.5 mg/dl (8.4-10.2) 09/23/23 05:53
Total Bilirubin 1.4 mg/dl (0.2-1.3) H 09/22/23 11:14
AST 38 U/L (14-36) H 09/22/23 11:14
ALT 21 U/L (0-35) 09/22/23 11:14
Alkaline Phosphatase 69 U/L (38-126) 09/22/23 11:14
Diagnostic Image Results:
Prior GI Procedures:
EGD:2022 Dr. Boyer short [facility] , single gastric polyp bx + focal intestinal metaplasia no dysplasia
Colonoscopy: 07/2022 [facility], with diverticulosis 2 3mm polyp AC, 1 3 mm polyp sigmoid, post polypectomy scar with some adjacent mucosal finding of nodularity ? residual and IH. bx TA and scar area with fragments of hyperplastic changes and mild
edema no residual adenoma presents.
Capsule endoscopy 08/2022 with normal findings.
Assessment / Plan
-
This patient is a 67-year-old woman with a history of a Lung CA with resection, recent bladder tumor removal and subsequent removal of hematoma, atrial fibrillation on chronic Eliquis, cardiac stents with Plavix therapy, lung cancer, hypertension,
CAD with stents, GERD, CHF, CKD, with now admission with PNA. She in noted with drop in hbg with initial hbg in July 13.2 then down to 9.1 mid July, 9.7 on admission 09/20 and down to 7.3 with brown heme neg stool and also report of hemoptysis
She was seen last year for similar symptoms with anemia. She completed EGD with Dr. Boyer short segment [facility] , single gastric polyp bx + focal intestinal metaplasia no dysplasia and colonoscopy with diverticulosis 2 3mm polyp AC, 1
3 mm polyp sigmoid, post polypectomy scar with some adjacent mucosal finding of nodularity ? residual and IH. bx TA and scar area with fragments of hyperplastic changes and mild edema no residual adenoma presents. She also completed capsule with
normal findings. She states since last year multiple DH admission. He last admission in July 2023 she was noted with hypoxemia requiring intubation and afib with RVR. She reports after discharge passing black stools after discharge that resolved
and No hematuria or vaginal bleeding. No NSAID use.
-microcytic anemia with low iron sat and ferritin
-recent black stools now brown heme neg non exam
-hematemesis
-sepsis with PNA
-CKD
-afib on Eliquis prior to admission
-CAD with stents on chronic Plavix prior to admission
other medical problems:
-lung CA with resection
-bladder CA s/p TURBT
-HTN
-GERD
-olson's
-hx colon polyps
-CHF
PLAN:
etiology of anemia may be multifactorial with CKD, recent black stools, hemoptysis vs other
current rectal exam heme neg
agree wtih transfusion and IV iron
trend hbg
cont PPI with hx olson's
cont diet as tolerated
consider OP follow up if continued anemia consider OP work up when resp status improves
current Eliquis and Plavix on hold last dose 09/19
per pt due to stop Plavix in October can consider cards review if need to stop sooner
-
-
Thank you for consultation and allowing me to participate in the patient's care. Please call the functional skills tutor GI physician during the after hours with any questions or concerns.
[2023-09-23 17:15] LABS: Glucose - Point of Care 95 mg/dl (70-99)
[2023-09-23] MEDS: PROZAC 20 MG PO (20:03)
[2023-09-23] MEDS: ZETIA 10 MG PO (20:03)
[2023-09-23] MEDS: LIPITOR 80 MG PO (20:03)
[2023-09-23 21:05] LABS: Glucose - Point of Care 114 mg/dl (70-99)
[2023-09-24 03:43] VITALS: BP 119/67
[2023-09-24] MEDS: ZOSYN 50 IV ×4 (05:41→23:17)
[2023-09-24 06:00] VITALS: BMI 21.2
[2023-09-24 07:20] VITALS: BP 121/71
[2023-09-24 07:57] LABS: % Basophils 0.6 % (0-2); % Eosinophils 0.2 % (0-6); % Immature Granulocytes 4.6 % (0-0.5); % Lymphocytes 6.2 % (20.5-51.1); % Monocytes 5.2 % (1.7-9.3); % Neutrophils 83.2 % (42.2-75.2); Absolute Basophils 0.1 10^3/uL (0-0.2); Absolute Immature Granulocytes 0.5 10^3/uL (0-0.05); Absolute Lymphocytes 0.7 10^3/uL (1.2-3.4); Absolute Monocytes 0.6 10^3/uL (0.1-0.6); Absolute Neutrophils 9.7 10^3/uL (1.4-6.5); Hematocrit 28.7 % (37.0-47.0); Hemoglobin 8.6 g/dL (12.0-16.0); Mean Corpuscular Hgb 22.3 pg (27.0-31.0); Mean Corpuscular Volume 74.4 fL (81.0-99.0); Nucleated Red Blood Cells % 0.8 %; Platelet Count 428 10^3/uL (130-400); Red Blood Cell Count 3.86 10^6/uL (4.20-5.40); Red Cell Dist. Width 26.9 % (11.5-14.5); White Blood Cell Count 11.6 10^3/uL (4.8-10.8)
[2023-09-24 07:59] LABS: Glucose - Point of Care 109 mg/dl (70-99)
[2023-09-24 08:26] LABS: ALT (SGPT) 20 U/L (0-35); AST (SGOT) 34 U/L (14-36); Albumin 3.3 g/dl (3.5-5.0); Alkaline Phosphatase 86 U/L (38-126); Blood Urea Nitrogen 15 mg/dl (7-17); Carbon Dioxide 24 mmol/L (22-30); Chloride 105 mmol/L (98-107); Estimated Creatinine Clearance 35 ml/min; Glucose 95 mg/dl (70-99); Magnesium 2.1 mg/dl (1.6-2.3); Sodium 138 mmol/L (135-145); Total Bilirubin 4.2 mg/dl (0.2-1.3); Total Protein 5.7 g/dl (6.3-8.2); eGFR 44.51
[2023-09-24] MEDS: PROTONIX 40 MG PO (08:42)
[2023-09-24] MEDS: PACERONE 200 MG PO (08:42)
[2023-09-24] MEDS: JARDIANCE 10 MG PO (08:42)
[2023-09-24] MEDS: ZESTRIL 2.5 MG PO (08:42)
[2023-09-24] MEDS: TOPROL XL 12.5 MG PO ×2 (08:43→19:55)
[2023-09-24] MEDS: LASIX 20 MG PO (08:43)
--- NOTE | 2023-09-24 10:08 | W.PN.HOSP.TC ---
Addendum entered and electronically signed by Roberta Gresham MD 09/24/23 12:55:
# Mild hemoptysis (mild streak of blood in sputum) was probably not related to/associated with/exacerbated by Eliquis/Plavix use
Original Note:
Today's Communication/Plan
-
see A/P
Monitor Hgb with restarting Eliquis
Assessment / Plan
Assessment / Plan
Echocardiogram on September 2023:
1. Left ventricle: Mildly dilated with low normal to mildly reduced LVEF visually estimated 50-55% and 49% by Goldstein's method of disks. Stage II diastolic dysfunction.
2. Right ventricle: Normal
3. Atria: Severe left atrial dilation
4. Mitral valve: Moderate to severe eccentric mitral regurgitation
5. Aortic valve: Trileaflet. Mild aortic insufficiency
6. Tricuspid valve: Moderate tricuspid regurgitation with estimated pulmonary artery systolic pressures of 58 mmHg
7. In comparison to most recent echocardiogram from 07/21/2013, the LVEF has improved from 30-35% to 49% by Goldstein's method of disks. The studies are otherwise fairly similar
A/P:
# Acute Hypoxemic Respiratory Failure likely related to pneumonia and heart failure, resolved
Weaned off O2 support, back to RA
Pulmonary consult appreciated.
# Sepsis POA due to Bilateral Pneumonia
# Lactic Acidosis secondary to the above, resolved
Admission CXR with patchy lower lobe opacities c/w pneumonia.
repeat CXR 09/22 with interval improvement of patchy bilateral airspace disease. No new alveolar opacities. No pleural effusions.
COVID / influenza negative, MRSA screen negative
Cont with broad spectrum abx IV Zosyn x 5 days
Cleared for solid and thin liquid per SPL eval
# Anemia
transfuse 1 unit PRBC, Hgb improved from 7.3 to 8.6 today
ferritin low indicating iron deficiency, started IV iron
B12/folate WNL
GI consulted, recc outpt work up
resume ENVIRONMENTAL PROJECTS ADVISOR Eliquis 5 mg BID
Cont to hold ENVIRONMENTAL PROJECTS ADVISOR plavix (she is due to have Plavix discontinued in October anyway)
# CKD stage 3
SCr 1.3, at baseline
# Mild hemoptysis, resolved
# ASCVD
# Acute on chronic HFrEF and valvulopathy
# Paroxysmal Atrial Fibrillation
# CAD s/p stents to circumflex 2011 and mid LAD stent in 11/05/22
BNP is elevated but marginally from prior ones.
s/p IV Lasix. Restarted oral diuretic Lasix 20 mg daily
Continue to evaluate volume status
resume ENVIRONMENTAL PROJECTS ADVISOR Eliquis 5 mg BID
Cont to hold ENVIRONMENTAL PROJECTS ADVISOR plavix (she is due to have Plavix discontinued in October anyway)
# Mild transaminitis, resolved
# Polycythemia vera
# Bicytopenia with leucocytosis and thrombocytosis
# Benign Hypertension
Restarted ENVIRONMENTAL PROJECTS ADVISOR low dose lisinopril 2.5 mg daily and low dose Toprol 12.5 mg twice a day
BP stable
# GERD / Husain's Esophagus
Resumed PPI
# History of Bladder Cancer, Stable.
# Prior TURBT and BCG therapy.
Last cysto was 02/2023 and biopsy was normal at that time.
# History of Lung Cancer s/p bilateral upper lobectomies - most recent was 7 years ago.
No recent symptoms or issues in this regard.
CXR without evidence of mass, etc. Repeat chest x-ray in a.m.
# Anxiety / Depression
Restart meds.
DVT Prophylaxis: SCDs. Hold Eliquis due to worsening anemia but restart as soon as stable and etiology clarified.
Code Status: Full
DW RN
Anticipated Discharge: Within 24 hours
Subjective/Interval History
-
Date of Service: September 24, 2023
Objective Data
-
Labs:
Laboratory Results
09/24/23
07:20
WBC 11.6 H
Hgb 8.6 L
Hct 28.7 L
Plt Count 428 H
Sodium 138
Potassium 4.0
Chloride 105
Carbon Dioxide 24
BUN 15
Creatinine 1.3 H
Glucose 95
Calcium 9.0
Total Bilirubin 4.2 H D
AST 34
ALT 20
Alkaline Phosphatase 86
Vital Signs:
Vital Signs
Temp Pulse Resp BP Pulse Ox
36.5 C 81 16 121/71 97
09/24/23 07:20 09/24/23 07:20 09/24/23 07:20 09/24/23 07:20 09/24/23 08:30
I&O
09/23/23 09/24/23 09/25/23
06:59 06:59 06:59
Intake Total 710 / 710 1819
Balance 710 / 710 1819
Review of Systems
-
All other systems: Reviewed and negative
Physical Exam
-
General: Well Developed, Well Nourished, No Apparent Distress, Comfortable and Conversant
HEENT: Normocephalic, Atraumatic, Nose Appears Normal and Ears Appear Normal
Respiratory: Clear to Auscultation and Non Labored Respirations; Negative Accessory Resp Muscle Use
Cardiac: Regular Rhythm and S1/S2
GI: Soft and Nontender
Neuro: Awake, Alert and Oriented
Psych: Calm and Intact Judgement/Insight
Data Reviewed
-
Diagnostic Radiology: Image personally visualized and interpreted and Report Reviewed by me
Labs: Labs Reviewed by me
--- NOTE | 2023-09-24 10:28 | PN.CDI ---
CDI
- -
CDI:
Physician Documentation Request
Admit Date: 09/21/23 07:52
Dear Doctor Marga,
Clinical Indicators:
Patient admitted with sepsis due to bilateral pneumonia.
Home medications include: Apixaban (Eliquis) 5 mg PO BID, resume today
Clopidogrel 75 mg PO DAILY; remains on hold
09/22 PN, 'mild hemoptysis, resolved'
Please clarify the likely relationship between the hemoptysis and Eliquis/Plavix use:
Yes, hemoptysis is related to/associated with/exacerbated by Eliquis/Plavix use
No, hemoptysis is not related to/associated with/exacerbated by Eliquis/Plavix use but it is due to ___. (Please specify)
Unable to determine
Use of terms such as suspected, likely, concern for, or probable (associated with a specific diagnosis that is being evaluated, monitored, or treated as if it exists) are acceptable and can be coded in the inpatient setting, when documented at the
time of discharge.
Thank you,
KENISHA Amezquita RN
CDI Specialist
available via tiger text
Please use your independent medical judgment in providing your response.
[2023-09-24 11:05] VITALS: BP 104/63
--- NOTE | 2023-09-24 11:16 | W.PN.PUL3 ---
Today's Communication / Plan
-
Remains stable on room air
Ongoing anemia w/u and treatment
Encouraged continued ambulation/IS
Outpatient pulmonary FU reviewed with patient again
We will sign off at this time, please call with questions
Assessment
-
68-year-old female with complex medical history including bilateral lung cancer with resection 2012 and 2016 at [place], significant smoking history, cardiac disease and peripheral vascular disease with sudden onset shortness of breath. Patient
required BiPAP and chest x-ray showed bilateral infiltrates. We are asked to help from pulmonary standpoint 09/21/2023
Acute hypoxic respiratory insufficiency, 82% room air
Required BiPAP
Bilateral interstitial changes
Heart failure versus pneumonitis, suspect former
elevated proBNP
Elevated lactate
Acute renal insufficiency
Anemia leukocytosis
Hyperglycemia
Moderate to severe eccentric MR
PA pressure 58
History of cardiomyopathy, improved on echo September 2023
Conditions present prior to admission
History of bilateral lung cancer
Bilateral upper lobectomies per imaging
Resection 2012, 2016 at [place] (Dr. Patten)
No chemoradiation therapy
History of coronary disease with stent
30 pound weight loss, unintentional
Family history of lung cancer, leukemia
Plan/recommendations
At this time, patient respiratory status is improved
Now on room air
Still feels some LIRA when ambulating
Suspect chest x-ray is more consistent with heart failure
Elevated proBNP, hypoxia, crackles on exam
Rapid improvement noted
Chest exam improved
She is on PO lasix
Moving forward
Agree with continued management for hypoxic respiratory failure
Lasix therapy per cardiology
BiPAP nightly and as needed during the day
Murmur on exam noted
Echocardiogram 09/12/2023 with normal biventricular function, moderate to severe eccentric mitral regurgitation, PA pressure 58
May require cardiology evaluation if rapid improvement noted
Hemoptysis noted x 1
Hemoglobin drop noted
Receiving iron infusion, and likely transfusion per team
Patient remains on Zosyn therapy. Low threshold to discontinue depending on follow-up imaging and clinical response
CXR improved
Can transition to oral abx therapy to complete 5-7 days
Diabetic, heart failure diet is recommended
Aspiration precautions
Reviewed with patient, reviewed with primary service
SOB eval ongoing, we discussed further outpatient FU would be needed
Discharge planning per team
Diagnostic Data
CXR 09/23/23- Interval improvement of patchy bilateral airspace disease. No new alveolar opacities. No pleural effusions.
CT chest 07/21/23- IMPRESSION:
1. No evidence of pulmonary embolism.
2. Findings consistent with CHF and moderate pulmonary interstitial edema. Superimposed pneumonia in the lower lobes not definitely excluded.
3. New area of lung herniation involving the lingula.
ECHO 09/12/23: CONCLUSIONS
1. Left ventricle: Mildly dilated with low normal to mildly reduced LVEF visually estimated 50-55% and 49% by Goldstein's method of disks. Stage II diastolic dysfunction.
2. Right ventricle: Normal
3. Atria: Severe left atrial dilation
4. Mitral valve: Moderate to severe eccentric mitral regurgitation
5. Aortic valve: Trileaflet. Mild aortic insufficiency
6. Tricuspid valve: Moderate tricuspid regurgitation with estimated pulmonary artery systolic pressures of 58 mmHg
7. In comparison to most recent echocardiogram from 07/21/2013, the LVEF has improved from 30-35% to 49% by Goldstein's method of disks. The studies are otherwise fairly similar
Subjective Data
-
Date of Service:
Date of Service: September 24, 2023
Chief Complaint: Pulmonary Follow Up
Subjective:
doing well off oxygen
stable on room air
no new complaints
Objective Data
Data Reviewed
Vital Signs / I&O / Oxygen:
Vital Signs
Temp Pulse Resp BP Pulse Ox
97.7 F 81 16 121/71 97
09/24/23 07:20 09/24/23 07:20 09/24/23 07:20 09/24/23 07:20 09/24/23 08:30
Intake and Output
09/23/23 09/24/23 09/25/23
06:59 06:59 06:59
Intake Total 710 / 710 1820 / 1820
Balance 710 / 710 1820 / 1820
SaO2 97
Nasal Cannula flow liters per 2
minute
Physical Exam
General: Comfortable
HEENT: Normocephalic and Anicteric
Cardiovascular: S1-S2, Regular Rhythm and Murmur (2/6 at apex)
Respiratory: Clear, Wheeze (n), Rhonchi (n) and Non-Labored Respirations
GI: Soft, Non Distended and Non Tender
Neurology: Awake, Alert, Oriented, AO x 3 and No Motor Deficits (Able to sit up without assistance)
Skin: Cyanosis (n), Jaundice (n) and Rash (n)
Labs/Micro/Reports
Lab Data
09/24/23 07:20
09/24/23 07:20
Microbiology
09/21/23 07:56 Blood/Venous Blood Culture - Preliminary
No Growth in 72 hours- Final report to follow
09/21/23 07:56 Blood/Venous Blood Culture - Preliminary
No Growth in 72 hours- Final report to follow
09/21/23 06:28 Blood/Venous Blood Culture - Preliminary
No Growth in 72 hours- Final report to follow
09/21/23 06:28 Blood/Venous Blood Culture - Preliminary
No Growth in 72 hours- Final report to follow
09/21/23 17:26 Urine Legionella Urinary Antigen - Final
Negative for Legionella pneumophila Serogroup 1 antigen.
A negative result does not rule out the possiblity of
Legionella infection due to other serogroups or species of
Legionella. Clinical correlation is recommended.
09/21/23 17:26 Urine Streptococcus pneumoniae Antigen (M - Final
Negative for Streptococcus pneumoniae antigen.
A negative result does not exclude infection with
Streptococcus pneumoniae. Clinical correlation is
recommended.
09/21/23 10:52 Nose Nasal Screen MRSA (PCR) - Final
MRSA not detected - performed by PCR methodology.
09/21/23 10:52 Nasal Swab Influenza Types A & B (MELANIE) - Final
Negative for Influenza A & B, NAAT
Negative results must be combined with clinical observations
and patient history.
Nucleic Acid Amplification test (NAAT)performed on the
[employer] platform.
--- NOTE | 2023-09-24 12:09 | PTOTSP ---
ST Follow-Up
Pt currently presents with functional oral phase of swallowing and mild pharyngoesophageal dysphagia, particularly with liquids.
Recommendations:
- Continue with REGULAR SOLIDS, THIN LIQUIDS, and meds as tolerated.
- Aspiration and reflux precautions: HOB fully upright during PO intake and for at least 60 minutes after PO intake, reduce acidic consumption, take PPI consistently.
- F/u with ENT as OP for persistent post-nasal drip.
- F/u GI as OP for ongoing vomiting (1x/week).
- At d/c, communicate with PCP if experiencing any increase in coughing/throat clearing with eating/drinking to get RX for OP video fluoroscopic swallow study.
- INDUSTRIAL ENGINEERING ANALYST will continue to follow to ensure pt is maintaining PO tolerance and to determine whether or not pt would benefit from a VFSS while still in-house.
[2023-09-24 12:13] LABS: Glucose - Point of Care 105 mg/dl (70-99)
[2023-09-24 12:17] VITALS: BP 124/70; PULSE 72; O2SAT 99
--- NOTE | 2023-09-24 12:25 | PTOTSP ---
Pt is able to ambulate in hallway and on stairs independently without need for any assistive device. Encouraged pt to ambulate in hallway ad gail. PT will sign off.
[2023-09-24] MEDS: FERRLECIT 110 MG IV (13:43)
[2023-09-24 15:10] VITALS: BP 106/57
[2023-09-24 17:02] LABS: Glucose - Point of Care 112 mg/dl (70-99)
[2023-09-24] MEDS: ELIQUIS 5 MG PO (19:52)
[2023-09-24] MEDS: ZETIA 10 MG PO (20:00)
[2023-09-24] MEDS: PROZAC 20 MG PO (20:01)
[2023-09-24] MEDS: LIPITOR 80 MG PO (20:01)
[2023-09-24 21:20] LABS: Glucose - Point of Care 114 mg/dl (70-99)
[2023-09-24 23:07] VITALS: BP 121/91
--- NOTE | 2023-09-25 03:05 | DOWNTIME ---
There was a [employer] Client [employer] Downtime on 08/28/2023 from 0100 to 08/28/2023 at 0439. Downtime documentation of patient's care, including medication administrations, has been reconciled in the electronic record per guidelines. Refer to the
patient's paper chart under the miscellaneous tab to see printed paper medication records and downtime forms.
--- NOTE | 2023-09-25 03:06 | DOWNTIME ---
There was a [employer] Downtime on 08/28/2023 from 0100 to 08/28/2023 at 0439. Downtime documentation of patient's care, including medication administrations, has been reconciled in the electronic record per guidelines. Refer to the
patient's paper chart under the miscellaneous tab to see printed paper medication records and downtime forms.
[2023-09-25] MEDS: ZOSYN 50 IV (05:15)
[2023-09-25 05:18] VITALS: BMI 21.2
[2023-09-25 05:42] LABS: % Basophils 0.9 % (0-2); % Eosinophils 0.3 % (0-6); % Immature Granulocytes 4.5 % (0-0.5); % Lymphocytes 9.3 % (20.5-51.1); Absolute Basophils 0.1 10^3/uL (0-0.2); Absolute Immature Granulocytes 0.5 10^3/uL (0-0.05); Absolute Monocytes 0.6 10^3/uL (0.1-0.6); Absolute Neutrophils 8.3 10^3/uL (1.4-6.5); Hematocrit 28.7 % (37.0-47.0); Hemoglobin 8.8 g/dL (12.0-16.0); Mean Corp Hgb Conc. 30.7 g/dL (33.0-37.0); Mean Corpuscular Hgb 22.4 pg (27.0-31.0); Nucleated Red Blood Cells % 1.1 %; Platelet Count 398 10^3/uL (130-400); Red Blood Cell Count 3.93 10^6/uL (4.20-5.40); Red Cell Dist. Width 27.7 % (11.5-14.5); White Blood Cell Count 10.4 10^3/uL (4.8-10.8)
[2023-09-25 05:59] LABS: Blood Urea Nitrogen 14 mg/dl (7-17); Calcium 8.8 mg/dl (8.4-10.2); Carbon Dioxide 28 mmol/L (22-30); Chloride 106 mmol/L (98-107); Estimated Creatinine Clearance 33 ml/min; Glucose 90 mg/dl (70-99); Magnesium 2.2 mg/dl (1.6-2.3); Sodium 140 mmol/L (135-145); eGFR 40.73
[2023-09-25 07:21] LABS: Glucose - Point of Care 111 mg/dl (70-99)
[2023-09-25 07:55] VITALS: BP 114/62
[2023-09-25] MEDS: PROTONIX 40 MG PO (08:10)
[2023-09-25] MEDS: TOPROL XL 12.5 MG PO (08:10)
[2023-09-25] MEDS: ELIQUIS 5 MG PO (08:11)
[2023-09-25] MEDS: JARDIANCE 10 MG PO (08:11)
[2023-09-25] MEDS: PACERONE 200 MG PO (08:11)
--- NOTE | 2023-09-25 08:31 | W.PN.HOSP.TC ---
Addendum entered and electronically signed by Roberta Gresham MD 09/25/23 13:23:
total DC time 35 min
Original Note:
Today's Communication/Plan
-
DC home today
Assessment / Plan
Assessment / Plan
Echocardiogram on September 2023:
1. Left ventricle: Mildly dilated with low normal to mildly reduced LVEF visually estimated 50-55% and 49% by Goldstein's method of disks. Stage II diastolic dysfunction.
2. Right ventricle: Normal
3. Atria: Severe left atrial dilation
4. Mitral valve: Moderate to severe eccentric mitral regurgitation
5. Aortic valve: Trileaflet. Mild aortic insufficiency
6. Tricuspid valve: Moderate tricuspid regurgitation with estimated pulmonary artery systolic pressures of 58 mmHg
7. In comparison to most recent echocardiogram from 07/21/2013, the LVEF has improved from 30-35% to 49% by Goldstein's method of disks. The studies are otherwise fairly similar
A/P:
# Acute Hypoxemic Respiratory Failure likely related to pneumonia and heart failure, resolved
Weaned off O2 support, back to RA
Pulmonary consult appreciated.
# Sepsis POA due to Bilateral Pneumonia
# Lactic Acidosis secondary to the above, resolved
Admission CXR with patchy lower lobe opacities c/w pneumonia.
repeat CXR 09/22 with interval improvement of patchy bilateral airspace disease. No new alveolar opacities. No pleural effusions.
Repeat CXR in 4-6 weeks with PCP.
COVID / influenza negative, MRSA screen negative
Cont with broad spectrum abx total 5 days, pt has received IV Zosyn x 4 days, can DC home with Cefdinir and azithromycin for 1 more day
Cleared for solid and thin liquid per SPL eval
# Anemia
transfused 1 unit PRBC, Hgb improved from 7.3 to 8.8 today
ferritin low indicating iron deficiency, started IV iron. Plan to DC on iron
B12/folate WNL
GI consulted, recc outpt work up
resumed VICE PROVOST Eliquis 5 mg BID
Cont to hold VICE PROVOST plavix (she is due to have Plavix discontinued in October anyway)
# CKD stage 3
SCr 1.3, at baseline
# Mild hemoptysis, resolved
# ASCVD
# Acute on chronic HFrEF and valvulopathy
# Paroxysmal Atrial Fibrillation
# CAD s/p stents to circumflex 2011 and mid LAD stent in 11/05/22
BNP is elevated but marginally from prior ones.
s/p IV Lasix. Restarted oral diuretic Lasix 20 mg daily
Continue to evaluate volume status
resumed VICE PROVOST Eliquis 5 mg BID
Cont to hold VICE PROVOST plavix (she is due to have Plavix discontinued in October anyway)
# Mild transaminitis, resolved
# Polycythemia vera
# Bicytopenia with leucocytosis and thrombocytosis
# Benign Hypertension
Restarted VICE PROVOST low dose lisinopril 2.5 mg daily and low dose Toprol 12.5 mg twice a day
BP stable
# GERD / Husain's Esophagus
Resumed PPI
# History of Bladder Cancer, Stable.
# Prior TURBT and BCG therapy.
Last cysto was 02/2023 and biopsy was normal at that time.
# History of Lung Cancer s/p bilateral upper lobectomies - most recent was 7 years ago.
No recent symptoms or issues in this regard.
CXR without evidence of mass, etc. Repeat chest x-ray in a.m.
# Anxiety / Depression
Restart meds.
DVT Prophylaxis: resumed Eliquis
Code Status: Full
DW RN
Anticipated Discharge: Today
Subjective/Interval History
-
Date of Service: September 25, 2023
Objective Data
-
Labs:
Laboratory Results
09/25/23 09/25/23
05:14 05:15
WBC 10.4
Hgb 8.8 L
Hct 28.7 L
Plt Count 398
Sodium 140
Potassium 4.0
Chloride 106
Carbon Dioxide 28
BUN 14
Creatinine 1.4 H
Glucose 90
Calcium 8.8
Vital Signs:
Vital Signs
Temp Pulse Resp BP Pulse Ox
36.9 C 69 18 114/62 99
09/25/23 07:55 09/25/23 07:55 09/25/23 07:55 09/25/23 07:55 09/25/23 07:55
I&O
09/24/23 09/25/23 09/26/23
06:59 06:59 06:59
Intake Total 1819 / 1819 1410 / 1410
Balance 1819 1410 / 1410
Review of Systems
-
All other systems: Reviewed and negative
Respiratory: Denies Cough or Trouble Breathing
Physical Exam
-
General: Well Developed, Well Nourished, No Apparent Distress, Comfortable and Conversant
HEENT: Normocephalic, Atraumatic, Nose Appears Normal and Ears Appear Normal; Negative Oxygen
Respiratory: Clear to Auscultation and Non Labored Respirations; Negative Accessory Resp Muscle Use
Cardiac: Regular Rhythm and S1/S2
GI: Soft and Nontender
Neuro: Awake, Alert, Oriented, AO x 3 and Nonfocal/Grossly Intact
Psych: Calm and Intact Judgement/Insight
Data Reviewed
-
Diagnostic Radiology: Image personally visualized and interpreted and Report Reviewed by me
Labs: Labs Reviewed by me
[2023-09-25] MEDS: ZESTRIL 2.5 MG PO (08:44)
[2023-09-25] MEDS: LASIX 20 MG PO (08:45)
--- NOTE | 2023-09-25 10:57 | CM ---
i met with patient at bedside.she is totally I and does not qualify for [facility].patient signed imm letter.she is stable for dc home with no needs.
--- NOTE | 2023-09-25 12:32 | W.DCSUMMARY ---
Discharge Summary
Discharge Data
Date of Admission: 09/21/23
Date of Discharge: 09/25/23
-
Pending Results: No
Hospital Course
Principal Diagnosis:
Acute Hypoxemic Respiratory Failure related to pneumonia and heart failure, resolved
Community-acquired pneumonia
Acute on chronic heart failure with reduced ejection fraction
Chronic Diagnoses:�
Paroxysmal Atrial Fibrillation
Coronary artery disease status post cardiac stent to circumflex 2011 and mid LAD in 11/05/22
Polycythemia vera. Bicytopenia with leucocytosis and thrombocytosis
Benign Hypertension.
Gastroesophageal reflux disease/ Husain's Esophagus.
History of Bladder Cancer, status post TURBT and BCG therapy.
History of Lung Cancer status post bilateral upper lobectomies
Anxiety / Depression
Chronic kidney disease stage III
Consultations:�
Pulmonary
Gastroenterology
Procedures:�
None
Clinical course:�
This is a 68-year-old female, with past medical history as stated above, who presented with shortness of breath at rest.
Problem 1:
Acute Hypoxemic Respiratory Failure likely related to pneumonia and heart failure, resolved.
She was placed on BiPAP on admission, and oxygen was slowly weaned off during her hospital stay. She was back to room air prior to discharge.
Problem 2:
Sepsis due to Bilateral Pneumonia.
This was associated with lactic acidosis which resolved.
Her admission CXR noted patchy lower lobe opacities, and her follow up CXR on 09/22 showed interval improvement of patchy bilateral airspace disease.
She can check repeat CXR in 4-6 weeks with her PCP.
Her COVID / influenza were negative, and MRSA screen was also negative.
She received IV Zosyn for 4 days while in the hospital, and she was discharged with Cefdinir and azithromycin for 1 more day.
Problem 3:
Anemia.
Her hemoglobin was low at 7.3 and she received 1 unit PRBC transfusion, which improved her hemoglobin to 8.8 on the day of discharge.
Her ferritin level was noted to be low at 28.6, and she received IV iron during her hospital stay. She was discharged with oral iron to continue going forward.
The patient was seen by GI and was recommended to follow-up outpatient for further workup.
She was cleared by GI to resume prior to admission Eliquis at 5 mg twice daily.
Her prior to admission Plavix was stopped (she is due to have Plavix discontinued in October anyway).
As for the rest of her medical problems, they were stable during her hospital stay.
Discharge Plan
-
Patient Disposition: Home (Routine Discharge)
Discharge Diagnosis/Procedures: Sepsis due to Bilateral Pneumonia; resolved hypoxemic respiratory failure; iron deficiency anemia
Condition: Fair
Diet: As tolerated, Low Fat, Low Cholesterol and Low Sodium
Activity: As tolerated
Driving Restrictions: As prior to admission
Blood Work: CBC with your PCP
Others Tests: CXR with your PCP in 4-6 weeks
Referrals:
Rukhsana Zavala, DO [Active] - (3 weeks, PFT)
UNKNOWN - PT NOT,INTERVIEWE [Family Provider] -
Sara Ingram PA-C [Specified Professional Personl] - 11/18/23 11:30 am (Please call to reschedule if you can not keep this appointment. If your insurance requires a referral please contact your primary care physician prior to your appointment. )
Additional Discharge Medication Instructions: Stop Plavix
Take antibiotics cefdinir and azithromycin for 1 more day.
Continue with iron tablet. You can take Senokot-S as needed for constipation.
Prescriptions:
New
cefdinir 300 mg capsule
300 mg PO Q12H 1 Days Qty: 2 0RF
azithromycin 500 mg tablet
500 mg PO DAILY 1 Days Qty: 1 0RF
ferrous sulfate 325 mg (65 mg iron) tablet
325 mg PO DAILY Qty: 30 0RF
sennosides-docusate sodium [Senokot-S] 8.6-50 mg tablet
1 tab-cap PO DAILY PRN (Reason: constipation) Qty: 30 0RF
Continued
atorvastatin [Lipitor] 80 mg Tablet
80 mg PO HS
pantoprazole [Protonix] 40 mg Tablet,Delayed Release (Dr/Ec)
40 mg PO DAILY
fluoxetine [Prozac] 20 mg Capsule
20 mg PO HS
ezetimibe [Zetia] 10 mg Tablet
10 mg PO HS
lisinopril 5 mg tablet
2.5 mg PO DAILY
Hold Instructions: Resume on 12/31/22.
Jardiance 10 mg tablet
10 mg PO DAILY
furosemide 20 mg tablet
20 mg PO DAILY
Eliquis 5 mg tablet
5 mg PO BID
metoprolol succinate 25 mg Tablet Extended Release 24 Hr
12.5 mg PO BID 30 Days Qty: 30 0RF
amiodarone 200 mg Tablet
200 mg PO DAILY
therapeutic multivitamin Tablet
1 tab PO DAILY
acetaminophen [Tylenol Extra Strength] 500 mg Tablet
1,000 mg PO BIDPRN PRN (Reason: mild pain)
Discontinued
clopidogrel 75 mg tablet
75 mg PO DAILY
Discharge Orders:
Discharge Patient (As Directed); Ordered 09/25/23
Ordered By: Roberta Gresham
Discharge Date and Time
Discharge Date/Time: 09/25/23 10:58
Print Language: KIS[place]HILI
== END 2023-09-25 10:58 | disposition home or self-care (01) | DRG 871 ==
LOC: 4 EAST ACU 07:52
PROVIDERS: Emergency Medicine; ADMITTING PHYSICIAN Hospitalist; ATTENDING PHYSICIAN Internal Medicine; CONSULT PHYSICIAN Internal Medicine Critical Care Medicine; CONSULT PHYSICIAN Internal Medicine Gastroenterology; EMERGENCY PHYSICIAN Emergency Medicine
PROC: 5A09357 Assistance with Respiratory Ventilation, Less than 24 Consecutive Hours, Continuous Positive Airway Pressure (ICD-10-PCS; 2023-09-21)
PROC: 30233N1 Transfusion of Nonautologous Red Blood Cells into Peripheral Vein, Percutaneous Approach (ICD-10-PCS; 2023-09-23)
DX: A41.9 Sepsis, unspecified organism (principal); I50.23 Acute on chronic systolic (congestive) heart failure; J18.9 Pneumonia, unspecified organism; J96.01 Acute respiratory failure with hypoxia; I13.0 Hypertensive heart and chronic kidney disease with heart failure and stage 1 through stage 4 chronic kidney disease, or unspecified chronic kidney disease; E87.20 Acidosis, unspecified; I42.9 Cardiomyopathy, unspecified; R04.2 Hemoptysis; I48.0 Paroxysmal atrial fibrillation; E78.00 Pure hypercholesterolemia, unspecified; I73.9 Peripheral vascular disease, unspecified; D45 Polycythemia vera; I34.0 Nonrheumatic mitral (valve) insufficiency; F32.A Depression, unspecified; F41.9 Anxiety disorder, unspecified; I25.10 Atherosclerotic heart disease of native coronary artery without angina pectoris; K21.9 Gastro-esophageal reflux disease without esophagitis; R63.4 Abnormal weight loss; K22.70 Barrett's esophagus without dysplasia; N18.30 Chronic kidney disease, stage 3 unspecified; D50.9 Iron deficiency anemia, unspecified; R73.9 Hyperglycemia, unspecified; D75.839 Thrombocytosis, unspecified; R74.01 Elevation of levels of liver transaminase levels; F12.90 Cannabis use, unspecified, uncomplicated; Y95 Nosocomial condition; Z85.51 Personal history of malignant neoplasm of bladder; Z85.118 Personal history of other malignant neoplasm of bronchus and lung; Z87.891 Personal history of nicotine dependence; Z95.5 Presence of coronary angioplasty implant and graft; Z11.52 Encounter for screening for COVID-19; Z79.01 Long term (current) use of anticoagulants; Z79.02 Long term (current) use of antithrombotics/antiplatelets; Z80.1 Family history of malignant neoplasm of trachea, bronchus and lung; Z80.6 Family history of leukemia; Z82.49 Family history of ischemic heart disease and other diseases of the circulatory system; Z79.84 Long term (current) use of oral hypoglycemic drugs; Z68.21 Body mass index [BMI] 21.0-21.9, adult
CPT/HCPCS: 71045; 71046; 80048; 80053; 80076; 80202; 82607; 82728; 82746; 82805; 82962; 83036; 83540; 83550; 83605; 83735; 83880; 84484; 85014; 85018; 85025; 85045; 86850; 86900; 86901; 86920; 87040; 87070; 87449; 87502; 87641; 87811; 87899; 92526; 92610; 93005; 94660; 96365; 96367; 96375; 97161; 97166; 97530; 99291; J2916; P9040

== ENCOUNTER → 2023-10-31 12:21 | Outpatient (REF) | payer OTHER, SELFPAY | LOC: RAD 12:21 | PROVIDERS: ATTENDING PHYSICIAN Surgery Vascular Surgery; FAMILY PHYSICIAN Family Medicine; REFERRING PHYSICIAN Nurse Practitioner Adult Health | DX: I65.23 Occlusion and stenosis of bilateral carotid arteries (principal); I72.9 Aneurysm of unspecified site; J18.9 Pneumonia, unspecified organism; R06.02 Shortness of breath | CPT/HCPCS: 71046; 93880; 93923; 93930 ==

== ENCOUNTER 2023-12-06 15:22 | Inpatient (IN) | payer OTHER, SELFPAY ==
[2023-12-06] VITALS (21 sets, daily range): BP systolic 83–125; BP diastolic 47–76; PULSE 61–67; BMI 20.6; BMI 21.8
--- NOTE | 2023-12-06 11:58 | ED.GENMED ---
History of Present Illness
General
Chief Complaint: Abnormal Lab Value
Time Seen by Provider: 12/06/23 11:37
History of Present Illness
History of Present Illness:
68-year-old female presented to the ED with abnormal lab values. Patient states that she had labs drawn yesterday and her PCP suggested to come to the ED because of low hemoglobin levels for further evaluation. She has been having ongoing black
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 Patient complains of blurry vision, light headache, fatigue since the past week. Patient has had shortness of breath with
exertion since diagnosed with pneumonia for the second time in September 2023. She has a history of atrial fibrillation and is currently on Eliquis and amiodarone.
Past History
Past History
ED Past Medical History: Arrthythmia (A fib), Cancer (Bladder cancer lung cancer), HTN and Hypercholesterolemia
ED Past Surgical History: Appendectomy, Cardiac (Stent), (X 2) and Other (Bilateral upper lung lobectomy)
Social History
Tobacco: Former smoker
Alcohol: None
Drug: Marijuana
Personal:
Living: alone
Employment: Other
Family History
Family History: Other
Review of Systems
Review of Systems
Constitutional: Reports fatigue
Respiratory: Reports trouble breathing (SOB with exertion chronic )
ABD/GI: Reports black stools
: Reports other
Phy Exam
General Physical Exam
General Presentation: well appearing and no apparent distress
General Habitus: elderly
ENT Exam
ENT Exam: EOMI
Eye Exam
Eye Exam: PERRL
Course
Orders/Labs/Results
Orders:
Orders
12/06/23 11:03
EKG [Electrocardiogram (*1)] Urgent
Reason for Study: Vertigo / Dizzy
EKG- Treatment ONCE
12/06/23 12:11
Type+Screen Urgent
Complete Blood Count/With Diff Urgent
Comprehensive Metabolic Panel Urgent
Ferritin Urgent
Iron Urgent
Total Iron Binding Urgent
Comment: IRON,FERRITIN,TIBC ADDED ON BY FLOOR 12:30PM 12-06-23
12/06/23 12:30
Add On- LAB Urgent
Tests Added?: IRON, FERRITIN, TIBC
12/06/23 12:31
* Blood Bank Products Urgent
Kriss Orders: EVERT JOSE
Blood Bank Products: *Packed RBC Leuko(PRBC's)
Quantity: 2
Transfuse Today: Yes
Reason: Anemia
Patient will require pre-treatment for transfusion:: No
Comment: OBTAINED
12/06/23 14:32
Pantoprazole [Protonix IV] 40 mg IV NOW STA
Abnormal Lab Results
12/06/23
12:11
WBC 14.8 H 10^3/uL
(4.8-10.8)
RBC 2.50 L 10^6/uL
(4.20-5.40)
Hgb 6.1 L* g/dL
(12.0-16.0)
Hct 19.8 L* %
(37.0-47.0)
MCV 77.6 L fL
(81.0-99.0)
MCH 24.0 L pg
(27.0-31.0)
MCHC 30.9 L g/dL
(33.0-37.0)
RDW 26.4 H %
(11.5-14.5)
Plt Count 407 H 10^3/uL
(130-400)
MPV 10.8 H fL
(7.4-10.4)
Abs Immat Gran (auto) 1.0 H 10^3/uL
(0-0.05)
Absolute Neuts (auto) 12.2 H 10^3/uL
(1.4-6.5)
Absolute Lymphs (auto) 0.8 L 10^3/uL
(1.2-3.4)
Absolute Monos (auto) 0.7 H 10^3/uL
(0.1-0.6)
Immature Gran % 6.8 H %
(0-0.5)
Neutrophils % 82.0 H %
(42.2-75.2)
Lymphocytes % 5.5 L %
(20.5-51.1)
Sodium 132 L mmol/L
(135-145)
BUN 35 H mg/dl
(7-17)
Creatinine 1.7 H mg/dL
(0.6-1.0)
AST 48 H U/L
(14-36)
ALT 46 H U/L
(0-35)
Total Protein 5.6 L g/dl
(6.3-8.2)
Crossmatch IS Only See Detail
12/06/23 12:11
12/06/23 12:11
Vital Signs
Initial and Last Documented VS:
Initial Vital Signs
Temp Pulse Resp BP Pulse Ox
99.2 F 68 18 125/52 100
12/06/23 10:59 12/06/23 10:59 12/06/23 10:59 12/06/23 10:59 12/06/23 10:59
Last Documented Vital Signs
Temp Pulse Resp BP Pulse Ox
98.7 F 63 15 101/47 100
12/06/23 14:42 12/06/23 14:45 12/06/23 14:45 12/06/23 14:42 12/06/23 14:45
*Critical Care Note
Total Time (30-74mins, 75-104mins- exclusive of procedures): Not Applicable
Update Note
Update Note:
68-year-old female presented with abnormal lab values. Also associated with fatigue, lightheaded, blurry vision. Laboratory evaluation showed hemoglobin of 6.1. Will do type and screen, ordered to units of PRBC, patient has consented for blood
transfusion. Stool guaiac negative. After consultation with GI, Dr. Saloni Caballero plan is to admit the patient due to elevated BUN, 35 to see how she does in 24 hours. Hemoglobin level is 6.1. The patient is remaining receiving 2 units of
PRBC and 40 mg of IV Protonix.
ED Attending Note
-
Portions of this chart may have been created with voice recognition software.� Occasional wrong word or��sound alike� substitutions may have occurred due to the inherent limitations of voice recognition software.
Discharge Plan
Departure
Patient Disposition: Home (Routine Discharge)
Date of Disposition: 12/06/23
Time of Disposition: 14:52
Patient with high blood pressure during this ER visit?: No
Discharge Problem:
GI bleed
Prescriptions:
No Action
atorvastatin [Lipitor] 80 mg Tablet
80 mg PO HS
pantoprazole [Protonix] 40 mg Tablet,Delayed Release (Dr/Ec)
40 mg PO DAILY
fluoxetine [Prozac] 20 mg Capsule
20 mg PO HS
ezetimibe [Zetia] 10 mg Tablet
10 mg PO HS
lisinopril 5 mg tablet
2.5 mg PO DAILY
Jardiance 10 mg tablet
10 mg PO DAILY
furosemide 20 mg tablet
20 mg PO DAILY
Eliquis 5 mg tablet
5 mg PO BID
metoprolol succinate 25 mg Tablet Extended Release 24 Hr
12.5 mg PO BID 30 Days Qty: 30 0RF
amiodarone 200 mg Tablet
200 mg PO DAILY
therapeutic multivitamin Tablet
1 tab PO DAILY
acetaminophen [Tylenol Extra Strength] 500 mg Tablet
1,000 mg PO BIDPRN PRN (Reason: mild pain)
cefdinir 300 mg capsule
300 mg PO Q12H 1 Days Qty: 2 0RF
azithromycin 500 mg tablet
500 mg PO DAILY 1 Days Qty: 1 0RF
ferrous sulfate 325 mg (65 mg iron) tablet
325 mg PO DAILY Qty: 30 0RF
sennosides-docusate sodium [Senokot-S] 8.6-50 mg tablet
1 tab-cap PO DAILY PRN (Reason: constipation) Qty: 30 0RF
Referrals:
Carlita Kwon MD [Family Provider] -
Interventions
Interventions:
*Risk Screen - Suicide Last Done: 12/06/23 10:59
*General Assessment Last Done: 12/06/23 12:47
*Neglect/Abuse Screening Last Done: 12/06/23 10:59
ED- Fall Risk Assessment Last Done: 12/06/23 12:17
*ED COVID-19 Vaccine History Last Done: 12/06/23 14:28
Discharge Date and Time
Print Language: LATVIAN
[2023-12-06 12:28] LABS: % Basophils 0.3 % (0-2); % Eosinophils 0.1 % (0-6); % Immature Granulocytes 6.8 % (0-0.5); % Lymphocytes 5.5 % (20.5-51.1); % Monocytes 4.8 % (1.7-9.3); Absolute Eosinophils 0.1 10^3/uL (0-0.7); Absolute Lymphocytes 0.8 10^3/uL (1.2-3.4); Absolute Monocytes 0.7 10^3/uL (0.1-0.6); Absolute Neutrophils 12.2 10^3/uL (1.4-6.5); Hematocrit 19.8 % (37.0-47.0); Hemoglobin 6.1 g/dL (12.0-16.0); Mean Corp Hgb Conc. 30.9 g/dL (33.0-37.0); Mean Corpuscular Volume 77.6 fL (81.0-99.0); Mean Platelet Volume 10.8 fL (7.4-10.4); Nucleated Red Blood Cells % 0.9 %; Platelet Count 407 10^3/uL (130-400); Red Cell Dist. Width 26.4 % (11.5-14.5); White Blood Cell Count 14.8 10^3/uL (4.8-10.8)
[2023-12-06 12:32] LABS: ALT (SGPT) 46 U/L (0-35); AST (SGOT) 48 U/L (14-36); Albumin 3.5 g/dl (3.5-5.0); Alkaline Phosphatase 72 U/L (38-126); Blood Urea Nitrogen 35 mg/dl (7-17); Calcium 8.6 mg/dl (8.4-10.2); Carbon Dioxide 27 mmol/L (22-30); Chloride 100 mmol/L (98-107); Estimated Creatinine Clearance 27 ml/min; Glucose 99 mg/dl (70-99); Potassium 4.7 mmol/L (3.5-5.1); Sodium 132 mmol/L (135-145); Total Bilirubin 0.9 mg/dl (0.2-1.3); Total Protein 5.6 g/dl (6.3-8.2); eGFR 32.26
[2023-12-06 13:00] LABS: Anisocytosis Slight; Ovalocytes 1+
[2023-12-06 13:01] LABS: Normal RBC Morphology No
[2023-12-06] MEDS: PROTONIX IV 40 MG IV ×2 (14:43→19:40)
--- NOTE | 2023-12-06 15:13 | HPS.HSE ---
Family Physician
-
Family Physician: Carlita Kwon
Chief Complaint
-
Symptomatic anemia
History of Present Illness
68-year-old female with past medical history of Hypertension, dyslipidemia, lung cancer s/p resection in the past, CAD, peripheral vascular disease, polycythemia vera, bladder cancer status post TURBT, paroxysmal atrial fibrillation, chronic
systolic congestive heart failure, CKD, severe mitral regurgitation, depression and anxiety, anemia, now presents for abnormal lab values. Noted to have lower hemoglobin, and admits to having black stools for the last 2 months. Scheduled for
endoscopy on 12/24/2023. Over the last week, appears to have been having symptoms of blurry vision, headache, fatigue, shortness of breath exertion. Did have pneumonia and continue to have some shortness of breath with exertion since then in September
which she was admitted for. On Eliquis for atrial fibrillation, no antiplatelets. Initial blood pressures of 86/76, pulse 64 although on Toprol. Saturating 100% on room air. Hemoglobin noted to be 6.1 (8.8 on 09/27), white count 14.8, platelets
407. Creatinine 1.7 (1.42 months ago). Transfused 2 units in the ED, given IV PPI.
Medical History
Past Medical History
Past Medical History: Reports Other (Hypertension, dyslipidemia, lung cancer s/p resection in the past, CAD, peripheral vascular disease, polycythemia vera, bladder cancer status post TURBT, paroxysmal atrial fibrillation, chronic systolic
congestive heart failure, CKD, severe mitral regurgitation, depression and anxiety)
Past Surgical History: Reports Other (PTCA with stents, right femur ORIF, appendectomy, , TURBT, left upper lobectomy, right upper lobectomy, right radial pseudoaneurysm repair, cochlear implant.)
Social History
Tobacco: Former Smoker
Alcohol: None
Drug: None
Family History
Family History: Not pertinent
Allergies / Home Medications
Allergies reflects when Allergies were last updated in [employer].
Home Medications with original date entered in [employer]
Allergy/Medication List:
Allergies
Allergy/AdvReac Type Severity Reaction Status Date / Time
No Known Drug Allergies Allergy NA Verified 12/06/23 11:01
pollen extracts Allergy runny Verified 12/06/23 11:01
nose,itchy
eyes
Home Medications
atorvastatin 80 mg tablet (Lipitor) 80 mg PO HS High cholesterol 04/07/22
ezetimibe 10 mg tablet (Zetia) 10 mg PO HS High cholesterol 04/07/22
fluoxetine 20 mg capsule (Prozac) 20 mg PO HS Mental Health/Anxiety 04/07/22
pantoprazole 40 mg tablet,delayed release (Protonix) 40 mg PO DAILY Gastrointestinal issue 04/07/22
lisinopril 5 mg tablet 5 mg PO DAILY Blood Pressure 12/28/22
empagliflozin 10 mg tablet (Jardiance) 10 mg PO DAILY 'heart protection' 02/18/23
apixaban 5 mg tablet (Eliquis) 5 mg PO BID Blood Clot Prevention/Tx 07/22/23
furosemide 20 mg tablet 20 mg PO DAILY Fluid Retention/Swelling 07/22/23
metoprolol succinate 25 mg tablet,extended release 24 hr 12.5 mg (1/2 x 25 mg) PO BID 30 days #30 tabs 07/26/23
amiodarone 200 mg tablet 200 mg PO DAILY 09/21/23
ferrous sulfate 325 mg (65 mg iron) tablet 325 mg PO DAILY #30 tabs 09/25/23
tolterodine 4 mg capsule,extended release 24 hr 4 mg PO HS 12/06/23
Review of Systems
-
History Source: Patient
A 12 point ROS was completed and negative except as noted: Yes
Physical Exam
Vital Signs
Vital Signs
Temp Pulse Resp BP Pulse Ox
98.7 F 63 15 101/47 100
12/06/23 14:42 12/06/23 14:45 12/06/23 14:45 12/06/23 14:42 12/06/23 14:45
Physical Exam
General: Other
Laboratory Results
-
12/06/23 12:11
12/06/23 12:11
Laboratory Results
Total Bilirubin 0.9 mg/dl (0.2-1.3) 12/06/23 12:11
AST 48 U/L (14-36) H 12/06/23 12:11
ALT 46 U/L (0-35) H 12/06/23 12:11
Alkaline Phosphatase 72 U/L (38-126) 12/06/23 12:11
Data Reviewed
-
Lab Data: Labs Reviewed by me
Impression/Plan
-
General: Well Developed, Well Nourished, No Apparent Distress, Comfortable and Conversant
HEENT: Normocephalic, Atraumatic, Nose Appears Normal and Ears Appear Normal; Negative Oxygen
Respiratory: Clear to Auscultation and Non Labored Respirations; Negative Accessory Resp Muscle Use
Cardiac: Regular Rhythm and S1/S2
GI: Soft and Nontender
Neuro: Awake, Alert, Oriented, AO x 3 and Nonfocal/Grossly Intact
Psych: Calm and Intact Judgement/Insight
IMPRESSION:
68-year-old female now presenting for fatigue, found to have anemia. Admitted for acute blood loss anemia.
PLAN:
#Acute blood loss anemia
#Iron deficient anemia
� GI consulted
� Transfused 2 units PRBC now
� Trend CBC daily
� Ensure hemoglobin goal greater than 7
� Maintain 2 large-bore IVs
� Anticipate EGD
� IV PPI twice daily
� Hold Eliquis
#Leukocytosis
� Most likely stress response
� Continue to monitor fever curve, white count
# CKD stage 3
�Monitor has mostly dehydrated, hypovolemic due to anemia
# ASCVD
# Chronic HFrEF and valvulopathy
# Paroxysmal Atrial Fibrillation
# CAD s/p stents to circumflex 2010 and mid LAD stent in 11/05/22
�No longer on Plavix
�Stop Lasix, antihypertensives due to acute blood loss and low BPs
� Hold Eliquis, Toprol due to hypotensive
-Cont amiodarone
# Mild transaminitis
-ctm
# Polycythemia vera
# Bicytopenia with leucocytosis and thrombocytosis
# Benign Hypertension
hold antihypertensives due to low BPs/acute anemia
# GERD / Husain's Esophagus
IV PPI
# History of Bladder Cancer, Stable.
# Prior TURBT and BCG therapy.
Last cysto was 02/2023 and biopsy was normal at that time.
# History of Lung Cancer s/p bilateral upper lobectomies - most recent was 7 years ago.
No recent symptoms or issues in this regard.
CXR without evidence of mass, etc. Repeat chest x-ray in a.m.
# Anxiety / Depression
NPO except important meds
DVT Prophylaxis:SCDs
Code Status: Full
[2023-12-06 15:16] LABS: Ferritin 45.7 ng/ml (11.1-264.0)
[2023-12-06 15:22] LABS: Iron 34 ug/dl (37-170)
--- NOTE | 2023-12-06 15:27 | CON.GI ---
Addendum entered and electronically signed by Saloni Caballero DO 12/06/23 16:12:
I saw and examined the patient.
The ASSISTANT PROJECT ENGINEER or PA's note was reviewed and I agree with the note.
Comment:
Kyleigh Gonsalez is a 68 y.o. female with history of bladder cancer status post resection and chemotherapy, lung cancer x 2 status post bilateral upper lobectomies, A-fib on Eliquis, CAD status post PCI, hypertension, hyperlipidemia, polycythemia
vera, anxiety, depression, GERD, Olson's esophagus, history of colon polyps, iron deficiency anemia who presented to [facility] earlier today after outpatient labs demonstrated a hemoglobin of 6.1, baseline hemoglobin in the high sevens
to low eights. She was also noted to have an acute kidney injury, elevated BUN of 35, creatinine 1.7, previously 1.4 in September 2023, evidence of iron deficiency with iron saturation of 8, elevated liver enzymes with an AST of 48, ALT 46. She has a
known history of iron deficiency anemia, follows with GI as an outpatient, last seen in the office on 11/18/2023 by a PA, Sara Ingram. She is scheduled to have an upper endoscopy with Dr. Dennise good on 12/24/2023, last colonoscopy in July 2022 with
2 tubular adenomas otherwise no source of bleeding, also had an upper endoscopy and video capsule endoscopy at that time, only remarkable for nondysplastic Olson's esophagus. She has brown stool on rectal, heme-negative. Also reports significant
weight unintentional weight loss over the last year-- has been discussed with multiple specialists that she sees, [facility].
Recommendations:
-admit and monitor overnight, most concerning to me is her elevated BUN
-IVF, clear liquids tonight, repeat labs in AM, if MICHAEL resolves/BUN normalizes with improvement in hemoglobin following blood transfusion/responds appropriately, okay to discharge with plans to perform EGD with Dr. Boyer as scheduled, on 12/23
-2 large peripheral gauge IVs
-PPI
-transfuse for Hgb >7.0
-if there continues to be concern for an active UGIB or she is not responding appropriately to blood transfusion, will plan for inpatient evaluation
Original Note:
Consultation
-
Date/Time Consultation Requested: 12/06/23
Date/Time Consultation Performed: 12/06/23 @ 15:00
Requesting Provider: Dr. Trinidad
Performing Provider: BOB Joseph; Dr. Saloni Caballero
Reason for Consultation: GI bleed, low hgb
Medical History
Chief Complaint / HPI
Chief Complaint: abnormal labs
History of Present Illness:
The patient is a pleasant 68-year-old female with a past medical history significant for atrial fibrillation on Eliquis, history of lung cancer with bilateral upper lobe lobectomies, bladder cancer with bladder resection, CAD with cardiac stents
previously on Plavix, hypertension, GERD, CKD, recent admission for pneumonia in September, who presents to the ER for evaluation of abnormal labs, with concern for GI bleed with a low hgb and melena. During her prior admission, she had a drop of
hemoglobin and we evaluated her for possible GI blood loss. Given her heme-negative brown stool she was advised to undergo outpatient EGD and colonoscopy which is scheduled for December 23. She got 1 unit of blood at that time with a hgb as low as
7.3 improved to 8.8 at discharge. Historically in July 2022 she had a similar presentation with anemia and underwent an endoscopy with Dr. Boyer, which showed Olson's esophagus, a medium size hiatal hernia, and focal intestinal metaplasia of
the stomach. Colonoscopy at that time showed diverticulosis, 2 small adenomatous polyps from the ascending colon and 1 adenomatous polyp from the sigmoid colon. Polyp post polypectomy scar showing hyperplastic changes. Overall there were no
findings to explain her anemia. She also completed a capsule study which was normal. Today she presents due to abnormal outpatient labs. She reports that since her discharge in September she has had ongoing black stools. She had been taking oral iron
at 1 point but that had stopped, but given her worsening symptoms she is felt that she should restart it and did start back on her iron on Saturday. She notes that she her appetite has been okay, but she has continued to lose a few pounds since September.
She notes that she has been having some intermittent lower abdominal pain although none on exam today. She has also had some hip pain that comes and goes as she had a prior hip replacement. She denies any fevers but does feel cold and is
experiencing chills at times. She continues with intermittent nausea and vomiting although reports that it is mostly mucus that she is bringing up. She denies any hematemesis or overt hematochezia. She does admit to shortness of breath and
dizziness but denies any chest pain or syncope. She is not taking NSAIDs. She is on Eliquis for history of A-fib and took this last at 9:30 this morning. Lung cancer, bladder cancer she pertinent lab findings include WBC 14.8, hemoglobin 6.1,
hematocrit 19.8, MCV 77.6, platelets 407,000, sodium 132, potassium 4.7, BUN 35, creatinine 1.7, serum iron 34, TIBC 386, iron saturation 8, ferritin 45.7, total bilirubin 0.9, AST 48, ALT 46, alk phos 72. She was given 1 dose of IV Protonix 40 mg
in the ER and we were asked to evaluate for further recommendations. Her Eliquis was placed on hold.
Past Medical History
Past Medical History: Arrhythmias (afib), CAD (with prior stent), Cancer (lung cancer, bladder cancer 07/2022), CHF, GERD, HTN, Hypercholesterolemia, Psychiatric (anxiety, depression, polycythemia vera) and Other (CKD, valvular disease (MR))
Past Surgical History: Appendectomy, Cardiac (stent), , Orthopedic (femur surgery), Urological (TURBT) and Other (bilateral upper lung lobectomies, radial pseudoaneurysm with repair, cochlear implant)
Social History
Tobacco: Former Smoker
Alcohol: Former
Drug: None
Family History
Family History: Reviewed & Not Pertinent
Allergies / Home Medications
Allergy/AdvReac Type Severity Reaction Status Date / Time
No Known Drug Allergies Allergy NA Verified 12/06/23 11:01
pollen extracts Allergy runny Verified 12/06/23 11:01
nose,itchy
eyes
�Medication �Instructions �Recorded
atorvastatin 80 mg tablet (Lipitor) 80 mg PO HS High cholesterol 04/07/22
ezetimibe 10 mg tablet (Zetia) 10 mg PO HS High cholesterol 04/07/22
fluoxetine 20 mg capsule (Prozac) 20 mg PO HS Mental Health/Anxiety 04/07/22
pantoprazole 40 mg tablet,delayed 40 mg PO DAILY Gastrointestinal 04/07/22
release (Protonix) issue
lisinopril 5 mg tablet 5 mg PO DAILY Blood Pressure 12/28/22
empagliflozin 10 mg tablet 10 mg PO DAILY 'heart protection' 02/18/23
(Jardiance)
apixaban 5 mg tablet (Eliquis) 5 mg PO BID Blood Clot 07/22/23
Prevention/Tx
furosemide 20 mg tablet 20 mg PO DAILY Fluid 07/22/23
Retention/Swelling
metoprolol succinate 25 mg 12.5 mg (1/2 x 25 mg) PO BID 30 07/26/23
tablet,extended release 24 hr days #30 tabs
amiodarone 200 mg tablet 200 mg PO DAILY 09/21/23
ferrous sulfate 325 mg (65 mg 325 mg PO DAILY #30 tabs 09/25/23
iron) tablet
tolterodine 4 mg capsule,extended 4 mg PO HS 12/06/23
release 24 hr
Review of Systems
-
History Source: Patient
Constitutional: Reports Weight Loss and Chills
EENT: Reports No Symptoms
Respiratory: Reports Trouble Breathing
Cardiac: Reports No Symptoms
Abdomen/GI: Reports Abdominal Pain ( intermittent lower abdominal pain) and Black Stools
: Reports No Symptoms
Musculoskeletal: Reports No Symptoms
Skin: Reports No Symptoms
Neurological: Reports Dizzy and Weakness
Vital Signs
Temp Pulse Resp BP Pulse Ox
98.7 F 60 17 108/53 99
12/06/23 14:42 12/06/23 15:15 12/06/23 15:15 12/06/23 15:00 12/06/23 15:15
Physical Exam
Exam
General: Well Developed, Well Nourished, No Apparent Distress and Other (pale-appearing)
HEENT: Normocephalic, Anicteric and Atraumatic
Respiratory: Clear
Cardiac: S1/S2 and Regular Rhythm
Breast: Deferred by me
GI: Soft, Non Tender, Non Distended and Normal Bowel Sounds
Rectal: Other (no stool on rectal exam)
Musculoskeletal: No Edema
Skin: Warm
Neuro: Awake, Alert and Oriented
Psych: Calm
Pale appearing
Results
WBC 14.8 10^3/uL (4.8-10.8) H 12/06/23 12:11
Hgb 6.1 g/dL (12.0-16.0) L* 12/06/23 12:11
Hct 19.8 % (37.0-47.0) L* 12/06/23 12:11
MCV 77.6 fL (81.0-99.0) L 12/06/23 12:11
Plt Count 407 10^3/uL (130-400) H 12/06/23 12:11
Absolute Neuts (auto) 12.2 10^3/uL (1.4-6.5) H 12/06/23 12:11
Sodium 132 mmol/L (135-145) L 12/06/23 12:11
Potassium 4.7 mmol/L (3.5-5.1) 12/06/23 12:11
Chloride 100 mmol/L (98-107) 12/06/23 12:11
Carbon Dioxide 27 mmol/L (22-30) 12/06/23 12:11
BUN 35 mg/dl (7-17) H 12/06/23 12:11
Creatinine 1.7 mg/dL (0.6-1.0) H 12/06/23 12:11
Calcium 8.6 mg/dl (8.4-10.2) 12/06/23 12:11
Total Bilirubin 0.9 mg/dl (0.2-1.3) 12/06/23 12:11
AST 48 U/L (14-36) H 12/06/23 12:11
ALT 46 U/L (0-35) H 12/06/23 12:11
Alkaline Phosphatase 72 U/L (38-126) 12/06/23 12:11
Prior GI procedures:
EGD:2022 Dr. Boyer short segment olson's med [facility], single gastric polyp bx + focal intestinal metaplasia no dysplasia
Colonoscopy: 07/2022 [facility], with diverticulosis 2 3mm polyp AC, 1 3 mm polyp sigmoid, post polypectomy scar with some adjacent mucosal finding of nodularity ? residual and IH. bx TA and scar area with fragments of hyperplastic changes and mild
edema no residual adenoma presents.
Capsule endoscopy 08/2022 with normal findings.
Assessment / Plan
-
The patient is a pleasant 68-year-old female with a past medical history significant for atrial fibrillation on Eliquis, history of lung cancer with bilateral upper lobe lobectomies, bladder cancer with bladder resection, CAD with cardiac stents
previously on Plavix, hypertension, GERD, CKD, recent admission for pneumonia in September, who presents to the ER for evaluation of abnormal labs, with concern for GI bleed with a low hgb and melena. Hemoglobin in the ER was 6.1, and she is receiving 2
units of packed red blood cells. Her stool was reportedly heme-negative despite having melena reportedly. She had been on oral iron which she had stopped but had restarted on Saturday and did not notice any change with being off of the iron
supplement. She has had progressive shortness of breath and weakness prompting outpatient labs.
Problem list:
-reported melena, heme neg stool in ER
-acute on chronic anemia
-weight loss
-Mixed iron studies with normal ferritin, low iron saturation and serum iron
-hx Afib on Eliquis
-hx lung CA x2 w/ bilateral upper lobectomies
-hx bladder CA with TURBT
-MICHAEL on CKD
Other pertinent medical hx:
-GERD
-HTN
-anxiety/depression
-CAD with stent
-Pneumonia with Sepsis in September 2023, July 2023
Recommendations:
-Etiology of recurrent anemia unclear. Suspicion is low for active GI bleed given heme-negative stool and negative GI workup last year with EGD, colonoscopy, and capsule. To consider other underlying hematologic causes.
-Agree with transfusion of 2 units of packed red blood cells
-Trend H&H and transfuse as needed to maintain a hemoglobin greater than 7
-Would hold Eliquis at this time, and if no active signs of bleeding to continue resuming in the morning. Will review with Dr. Caballero
-Continue PPI twice daily for now
-To consider oncology evaluation given her recurrent anemia with no obvious GI bleeding
-She is agreeable to have endoscopic evaluation outpatient as previously scheduled on December 23, which will be done in room [address] Boy[address]
-To consider CT imaging of the abdomen and pelvis given her associated weight loss as well and history of cancers although this is limited given her MICHAEL. Defer to medicine.
-Further management pending above. If she is stable after her blood transfusion tomorrow morning and her hemoglobin has improved, to consider possible discharge with close outpatient follow-up.
-
-
Thank you for consultation and allowing me to participate in the patient's care. Please call the document controller GI physician during the after hours with any questions or concerns.
[2023-12-06 15:30] LABS: Percent Saturation 8 % (20-50); Total Iron Binding Capacity 386 ug/dl (265-497)
[2023-12-06] MEDS: TYLENOL 650 MG PO (18:00)
[2023-12-06] MEDS: NSS (PRESERVATIVE FREE) 10 ML IV (19:40)
[2023-12-07] VITALS (10 sets, daily range): BP systolic 96–136; BP diastolic 51–68; PULSE 60–74; O2SAT 99; BMI 20.5
[2023-12-07] MEDS: PACERONE 200 MG PO (07:48)
[2023-12-07] MEDS: NSS (PRESERVATIVE FREE) 10 ML IV ×2 (07:48→21:09)
[2023-12-07] MEDS: PROTONIX IV 40 MG IV ×2 (07:48→21:10)
[2023-12-07 09:04] LABS: INR 1.67; PT 19.5 Sec (11.4-14.6)
[2023-12-07 09:18] LABS: Hematocrit 23.5 % (37.0-47.0); Hemoglobin 7.9 g/dL (12.0-16.0); Mean Corp Hgb Conc. 33.6 g/dL (33.0-37.0); Mean Corpuscular Hgb 26.4 pg (27.0-31.0); Mean Corpuscular Volume 78.6 fL (81.0-99.0); Platelet Count 258 10^3/uL (130-400); Red Blood Cell Count 2.99 10^6/uL (4.20-5.40); Red Cell Dist. Width 24.1 % (11.5-14.5); White Blood Cell Count 12.4 10^3/uL (4.8-10.8)
--- NOTE | 2023-12-07 09:44 | W.PN.GI.CBS2 ---
Today's Communication / Plan
-
AM labs pending, d/c if kidney function improves/normalizes with outpatient GI f/u
Assessment / Plan
-
Kyleigh Gonsalez is a 68 y.o. female with history of bladder cancer status post resection and chemotherapy, lung cancer x 2 status post bilateral upper lobectomies, A-fib on Eliquis, CAD status post PCI, hypertension, hyperlipidemia, polycythemia
vera, anxiety, depression, GERD, Husain's esophagus, history of colon polyps, iron deficiency anemia admitted to for symptomatic anemic following outpatient labs demonstrating a significant anemia.
Symptomatic Anemia w/ history of chronic JOSSELYN
-hx of JOSSELYN, unclear if true 'obscure GI bleeding', prior EGD, Colonoscopy and VCE in 2022 without source of GI bleeding; short-segment nondysplastic BE found
-prior workup for hemolysis neg
-repeat EGD scheduled with Dr. Boyer on 12/23
-Hgb on admission 6.1 --> 7.9 this morning s/p 2units of PRBC
-reports melena at home, but brown, heme neg. stool on rectal
-c/w PPI
--elevated BUN/Cr.-- no signs of active UGIB bleeding, repeat AM labs pending
-if BUN/Cr. normalizes, will plan for discharge with close outpatient f/u with Dr. Boyer and will discuss with her if colonoscopy should be performed at time of planned EGD on 12/23
Elevated LFTs
-hepatocellular pattern- AST 48, 46
-hx of elevated liver enzymes in the past, which have intermittently normalized
-defer to outpatient for workup
Subjective
Subjective
Date of Service: December 07, 2023
Patient seen in follow-up this morning, AM labs pending. Reports feeling much better since receiving blood transfusion. Offers no complaints.
Objective
Data Reviewed
Laboratory Data:
Laboratory Results
12/07/23 07:08
Laboratory Results
PT 19.5 Sec (11.4-14.6) H 12/07/23 07:08
INR 1.67 12/07/23 07:08
Total Bilirubin Cancelled 12/07/23 07:08
AST Cancelled 12/07/23 07:08
ALT Cancelled 12/07/23 07:08
Alkaline Phosphatase Cancelled 12/07/23 07:08
Vital Signs and I&O:
Vital Signs
Temp Pulse Resp BP Pulse Ox
98.7 F 66 16 112/58 99
12/07/23 08:05 12/07/23 08:05 12/07/23 08:05 12/07/23 08:05 12/07/23 08:05
I&O
12/06/23 12/07/23 12/08/23
06:59 06:59 06:59
Intake Total 980 / 980
Output Total 500 / 500
Balance 480 / 480
Physical Exam
Physical Exam
GENERAL: In no acute distress, appears comfortable
ABDOMEN: +BS; soft, non-tender and non-distended; no rebound or guarding
[2023-12-07 10:01] LABS: ALT (SGPT) 44 U/L (0-35); AST (SGOT) 49 U/L (14-36); Albumin 3.5 g/dl (3.5-5.0); Alkaline Phosphatase 72 U/L (38-126); Blood Urea Nitrogen 31 mg/dl (7-17); Calcium 8.9 mg/dl (8.4-10.2); Carbon Dioxide 26 mmol/L (22-30); Chloride 102 mmol/L (98-107); Estimated Creatinine Clearance 30 ml/min; Glucose 99 mg/dl (70-99); Potassium 4.7 mmol/L (3.5-5.1); Sodium 133 mmol/L (135-145); Total Bilirubin 1.5 mg/dl (0.2-1.3); Total Protein 5.7 g/dl (6.3-8.2); eGFR 37.49
[2023-12-07] MEDS: TYLENOL 650 MG PO ×2 (10:30→17:27)
[2023-12-07 10:54] LABS: Reticulocyte Count 3.6 % (0.4-2.8)
[2023-12-07 11:17] LABS: Creatine Phosphokinase 25 U/L (30-135); LDH 888 U/L (120-246)
--- NOTE | 2023-12-07 11:40 | CM ---
Patient seen bedside, initial assessment completed. Patient resides with her step daughter in a multiple story home, first floor set up, four steps to enter home. Patient denies the use of DME, reports history with [facility] in past, [facility] in past
after hip surgery. Patient confirms PCP Carlita Kwon, pharmacy [facility]. Patient confirms prescription coverage, denies food, housing/utility, transportation insecurities. CM will continue to follow for all discharge planning needs.
Plan; home no needs vs VN, watch for PT evals.
--- NOTE | 2023-12-07 12:05 | W.PN.HOSP.TC ---
Today's Communication/Plan
-
monitor hgb, will resume Eliquis and monitor CBC if hgb remains stable
F/u Haptoglobin, Bili
F/u GI recs
Assessment / Plan
Assessment / Plan
General: Well Developed, Well Nourished, No Apparent Distress, Comfortable and Conversant
HEENT: Normocephalic, Atraumatic, Nose Appears Normal and Ears Appear Normal; Negative Oxygen
Respiratory: Clear to Auscultation and Non Labored Respirations; Negative Accessory Resp Muscle Use
Cardiac: Regular Rhythm and S1/S2
GI: Soft and Nontender
Neuro: Awake, Alert, Oriented, AO x 3 and Nonfocal/Grossly Intact
Psych: Calm and Intact Judgement/Insight
68-year-old female now presenting for fatigue, found to have anemia. Admitted for acute blood loss anemia.
PLAN:
#Acute blood loss anemia
#Iron deficient anemia
� GI consulted
� Transfused 2 units PRBC 12/05 - appropriately responded although elevated retic count, LDH
-F/u Haptoglobin - patients bilirubin elevated
� Trend CBC daily
� Ensure hemoglobin goal greater than 7
� Maintain 2 large-bore IVs
� Anticipate EGD outpatient if Hgb remains stable
� IV PPI twice daily
� Hold Eliquis, will restart Eliquis if HgB stable and monitor
#Hyperbilirubinemia
� Follow-up haptoglobin
� LDH, reticulocyte count high
� Continue to monitor hemoglobin
#Leukocytosis
� Most likely stress response
� Continue to monitor fever curve, white count
#Hyponatremia
� Monitor and replete
# CKD stage 3
�Monitor has mostly dehydrated, hypovolemic due to anemia
�Improving with resuscitation
� Continue to monitor
# ASCVD
# Chronic HFrEF and valvulopathy
# Paroxysmal Atrial Fibrillation
# CAD s/p stents to circumflex 2011 and mid LAD stent in 11/05/22
�No longer on Plavix
�Stop Lasix, antihypertensives due to acute blood loss and low BPs
� Hold Eliquis, Toprol due to hypotensive
-Cont amiodarone
# Mild transaminitis
-ctm, has been chronic
�Monitor outpatient
# Polycythemia vera
# Bicytopenia with leucocytosis and thrombocytosis
# Benign Hypertension
hold antihypertensives due to low BPs/acute anemia
# GERD / Husain's Esophagus
IV PPI
# History of Bladder Cancer, Stable.
# Prior TURBT and BCG therapy.
Last cysto was 02/2023 and biopsy was normal at that time.
# History of Lung Cancer s/p bilateral upper lobectomies - most recent was 7 years ago.
No recent symptoms or issues in this regard.
CXR without evidence of mass, etc. Repeat chest x-ray in a.m.
# Anxiety / Depression
NPO except important meds
DVT Prophylaxis:SCDs
Code Status: Full
Anticipated Discharge: 24 - 48 hours
Subjective/Interval History
-
Date of Service: December 07, 2023
Feels better posttransfusion
Objective Data
-
Labs:
Laboratory Results
12/07/23 12/07/23 12/07/23
07:08 09:36 15:00
WBC 12.4 H Pending
Hgb 7.9 L D Pending
Hct 23.5 L Pending
Plt Count 258 D Pending
PT 19.5 H
INR 1.67
Sodium Cancelled 133 L Pending
Potassium Cancelled 4.7 Pending
Chloride Cancelled 102 Pending
Carbon Dioxide Cancelled 26 Pending
BUN Cancelled 31 H Pending
Creatinine Cancelled 1.5 H Pending
Glucose Cancelled 99 Pending
Calcium Cancelled 8.9 Pending
Total Bilirubin Cancelled 1.5 H Pending
AST Cancelled 49 H Pending
ALT Cancelled 44 H Pending
Alkaline Phosphatase Cancelled 72 Pending
Vital Signs:
Vital Signs
Temp Pulse Resp BP Pulse Ox
98.5 F 95 16 112/58 99
12/07/23 11:20 12/07/23 11:20 12/07/23 11:20 12/07/23 08:05 12/07/23 11:20
I&O
12/06/23 12/07/23 12/08/23
06:59 06:59 06:59
Intake Total 980 / 980
Output Total 500 / 500
Balance 480 / 480
Review of Systems
-
All other systems: Reviewed and negative
Respiratory: Denies Cough or Trouble Breathing
Physical Exam
-
General: Well Developed, Well Nourished, No Apparent Distress, Comfortable and Conversant
HEENT: Normocephalic, Atraumatic, Nose Appears Normal and Ears Appear Normal; Negative Oxygen
Respiratory: Clear to Auscultation and Non Labored Respirations; Negative Accessory Resp Muscle Use
Cardiac: Regular Rhythm and S1/S2
GI: Soft and Nontender
Neuro: Awake, Alert, Oriented, AO x 3 and Nonfocal/Grossly Intact
Psych: Calm and Intact Judgement/Insight
Data Reviewed
-
Diagnostic Radiology: Image personally visualized and interpreted and Report Reviewed by me
Labs: Labs Reviewed by me
[2023-12-07 15:37] LABS: Hematocrit 24.1 % (37.0-47.0); Hemoglobin 7.7 g/dL (12.0-16.0); Mean Corpuscular Hgb 26.3 pg (27.0-31.0); Mean Corpuscular Volume 82.3 fL (81.0-99.0); Mean Platelet Volume 10.7 fL (7.4-10.4); Platelet Count 342 10^3/uL (130-400); Red Blood Cell Count 2.93 10^6/uL (4.20-5.40); White Blood Cell Count 12.4 10^3/uL (4.8-10.8)
[2023-12-07 15:47] LABS: ALT (SGPT) 42 U/L (0-35); AST (SGOT) 45 U/L (14-36); Albumin 3.2 g/dl (3.5-5.0); Alkaline Phosphatase 70 U/L (38-126); Blood Urea Nitrogen 33 mg/dl (7-17); Calcium 8.5 mg/dl (8.4-10.2); Carbon Dioxide 25 mmol/L (22-30); Chloride 102 mmol/L (98-107); Direct Bilirubin 0.2 mg/dl (0.0-0.4); Estimated Creatinine Clearance 30 ml/min; Glucose 97 mg/dl (70-99); Potassium 4.9 mmol/L (3.5-5.1); Sodium 132 mmol/L (135-145); Total Bilirubin 1.1 mg/dl (0.2-1.3); Total Protein 5.3 g/dl (6.3-8.2); eGFR 37.49
[2023-12-07 16:22] LABS: Absolute Neutrophils -Man Diff 10.4 10^3/uL (1.4-6.5); Band Neutrophils 2 % (0-3); Lymphocytes 5 % (20-51); Metamyelocytes 2 % (-); Monocytes 6 % (2-9); Myelocytes 3 % (-); Normal RBC Morphology No; Nucleated Red Blood Cells 1 (-); Pathologist Reviewed No; Platelets Checked Yes; Segmented Neutrophils 82 % (42-75)
[2023-12-07 16:23] LABS: Anisocytosis 2+; Hypochromasia 2+; Macrocytosis 2+; Ovalocytes 2+; Poikilocytosis 2+; Tear Drop Red Blood Cells 1+; Total Cells Counted 100
[2023-12-07] MEDS: FLUSH (NSS) 1 FLUSH IV (21:11)
[2023-12-08 03:00] VITALS: BP 112/62
[2023-12-08 06:00] VITALS: BMI 20.3
[2023-12-08 07:20] VITALS: BP 119/63
[2023-12-08 07:57] LABS: Hematocrit 25.3 % (37.0-47.0); Mean Corp Hgb Conc. 31.6 g/dL (33.0-37.0); Mean Corpuscular Hgb 26.2 pg (27.0-31.0); Mean Platelet Volume 11.2 fL (7.4-10.4); Platelet Count 384 10^3/uL (130-400); Red Blood Cell Count 3.05 10^6/uL (4.20-5.40); Red Cell Dist. Width 24.5 % (11.5-14.5); White Blood Cell Count 13.5 10^3/uL (4.8-10.8)
[2023-12-08 08:06] LABS: ALT (SGPT) 50 U/L (0-35); AST (SGOT) 54 U/L (14-36); Albumin 3.3 g/dl (3.5-5.0); Alkaline Phosphatase 76 U/L (38-126); Blood Urea Nitrogen 34 mg/dl (7-17); Calcium 8.6 mg/dl (8.4-10.2); Carbon Dioxide 25 mmol/L (22-30); Chloride 103 mmol/L (98-107); Estimated Creatinine Clearance 30 ml/min; Glucose 97 mg/dl (70-99); Potassium 5.3 mmol/L (3.5-5.1); Sodium 135 mmol/L (135-145); Total Bilirubin 0.8 mg/dl (0.2-1.3); Total Protein 5.5 g/dl (6.3-8.2); eGFR 37.49
[2023-12-08] MEDS: NSS (PRESERVATIVE FREE) 10 ML IV ×2 (08:25→19:59)
[2023-12-08] MEDS: TYLENOL 650 MG PO ×2 (08:26→16:47)
[2023-12-08] MEDS: PROTONIX IV 40 MG IV ×2 (08:26→19:59)
[2023-12-08] MEDS: PACERONE 200 MG PO (08:26)
--- NOTE | 2023-12-08 09:25 | W.PN.GI.CBS2 ---
Today's Communication / Plan
-
EGD tomorrow, if negative, outpatient colonoscopy
Assessment / Plan
-
Kyleigh Gonsalez is a 68 y.o. female with history of bladder cancer status post resection and chemotherapy, lung cancer x 2 status post bilateral upper lobectomies, A-fib on Eliquis, CAD status post PCI, hypertension, hyperlipidemia, polycythemia
vera, anxiety, depression, GERD, Husain's esophagus, history of colon polyps, iron deficiency anemia admitted to for symptomatic anemic following outpatient labs demonstrating a significant anemia.
Symptomatic Anemia w/ history of chronic JOSSELYN
-hx of JOSSELYN, unclear if true 'obscure GI bleeding', prior EGD, Colonoscopy and VCE in 2022 without source of GI bleeding; short-segment nondysplastic BE found
-prior workup for hemolysis neg
-Hgb on admission 6.1 --> 7.9--> 7.7 --> 8.0, 2/p 2 units of PRBC
-reports melena at home, but brown, heme neg. stool on rectal
-c/w PPI
--elevated BUN/Cr.-- no signs of active UGIB bleeding, BUN continues to be elevated without much improvement -- > plan for EGD tomorrow, if no identifiable source of GI bleeding is found, will plan to have patient perform colonoscopy (rather than
EGD) with Dr. Boyer on 12/23, to continue her workup
Elevated LFTs
-hepatocellular pattern- AST 54, ALT 50
-hx of elevated liver enzymes in the past, which have intermittently normalized
-defer to outpatient for workup
Subjective
Subjective
Date of Service: December 08, 2023
Patient seen in follow-up today, offers no complaints. She is feeling better since getting blood transfusion upon admission. Hemoglobin this morning is 8.0. BUN 34, creatinine 1.5.
Objective
Data Reviewed
Laboratory Data:
Laboratory Results
12/08/23 06:44
12/08/23 06:44
Laboratory Results
PT 19.5 Sec (11.4-14.6) H 12/07/23 07:08
INR 1.67 12/07/23 07:08
Total Bilirubin 0.8 mg/dl (0.2-1.3) 12/08/23 06:44
AST 54 U/L (14-36) H 12/08/23 06:44
ALT 50 U/L (0-35) H 12/08/23 06:44
Alkaline Phosphatase 76 U/L (38-126) 12/08/23 06:44
Vital Signs and I&O:
Vital Signs
Temp Pulse Resp BP Pulse Ox
97.6 F 61 16 119/63 100
12/08/23 07:20 12/08/23 08:26 12/08/23 07:20 12/08/23 08:26 12/08/23 07:20
I&O
12/07/23 12/08/23 12/09/23
06:59 06:59 06:59
Intake Total 980 / 980 820 / 820
Output Total 500 / 500
Balance 480 / 480 820 / 820
Physical Exam
Physical Exam
GENERAL: In no acute distress, appears comfortable
ABDOMEN: +BS; soft, non-tender and non-distended; no rebound or guarding
--- NOTE | 2023-12-08 10:47 | CM ---
Patient seen bedside, discussed PT recommendations of home health vs no needs. Patient declines VN services at this time. IMM reviewed, signed, placed in chart. CM will continue to follow for all discharge planning needs.
Plan; home no needs, declining VN at this time.
[2023-12-08 11:20] VITALS: BP 115/60
--- NOTE | 2023-12-08 12:19 | W.PN.HOSP.TC ---
Today's Communication/Plan
-
EGD in am
Assessment / Plan
Assessment / Plan
68-year-old female now presenting for fatigue, found to have anemia. Admitted for acute blood loss anemia.
CVS: S1-S2 normal
Chest: CTA B/L
Abdomen: Soft, NT
Extremities: No edema
PLAN:
#Acute blood loss anemia
#Iron deficient anemia
� Transfused 2 units PRBC 12/05 - appropriately responded although elevated retic count, LDH
- F/u Haptoglobin - patients bilirubin elevated
� Trend CBC
� Ensure hemoglobin goal greater than 7
� Anticipate EGD tomorrow
� IV PPI twice daily
� Hold Eliquis
#transaminitis
� Follow-up haptoglobin
� LDH, reticulocyte count high
� Continue to monitor hemoglobin
#Leukocytosis
� Most likely stress response
� Continue to monitor fever curve, white count
#Hyponatremia
� Resolved
# CKD stage 3
�Monitor has mostly dehydrated, hypovolemic due to anemia
�Improving with resuscitation
� Continue to monitor
# ASCVD
# Chronic HFrEF and valvulopathy
# Paroxysmal Atrial Fibrillation
# CAD s/p stents to circumflex 2011 and mid LAD stent in 11/05/22
�No longer on Plavix
�Stop Lasix, antihypertensives due to acute blood loss and low BPs
�Hold Eliquis, Toprol due to hypotensive
-Cont amiodarone
-Now in Sinus Rhythm
# Polycythemia vera JAK2 Gene mutation
# Bicytopenia with leucocytosis and thrombocytosis
# Benign Hypertension
hold antihypertensives due to low BPs/acute anemia
# GERD / Husain's Esophagus
IV PPI
# History of Bladder Cancer, Stable.
# Prior TURBT and BCG therapy.
Last cysto was 02/2023 and biopsy was normal at that time.
# History of Lung Cancer s/p bilateral upper lobectomies - most recent was 7 years ago.
No recent symptoms or issues in this regard.
CXR without evidence of mass, etc. Repeat chest x-ray in a.m.
# Anxiety / Depression
NPO except important meds
# Ex Smoker
#DVT Prophylaxis:SCDs
#Code Status: Full
Anticipated Discharge: 24 - 48 hours
Subjective/Interval History
-
Date of Service: December 08, 2023
Objective Data
-
Labs:
Laboratory Results
12/08/23
06:44
WBC 13.5 H
Hgb 8.0 L
Hct 25.3 L
Plt Count 384
Sodium 135
Potassium 5.3 H
Chloride 103
Carbon Dioxide 25
BUN 34 H
Creatinine 1.5 H
Glucose 97
Calcium 8.6
Total Bilirubin 0.8
AST 54 H
ALT 50 H
Alkaline Phosphatase 76
Vital Signs:
Vital Signs
Temp Pulse Resp BP Pulse Ox
98 F 67 16 115/60 99
12/08/23 11:20 12/08/23 11:20 12/08/23 11:20 12/08/23 11:20 12/08/23 11:20
I&O
12/07/23 12/08/23 12/09/23
06:59 06:59 06:59
Intake Total 980 / 980 820 / 820
Output Total 500 / 500
Balance 480 / 480 820 / 820
[2023-12-08 15:22] VITALS: BP 115/58
[2023-12-08 19:37] VITALS: BP 121/62
[2023-12-08 23:08] VITALS: BP 113/55
[2023-12-09] VITALS (9 sets, daily range): BP systolic 106–139; BP diastolic 49–81; PULSE 64; O2SAT 100; BMI 20.3
[2023-12-09 04:12] LABS: Haptoglobin 199 mg/dL (30-200)
[2023-12-09] MEDS: NSS (PRESERVATIVE FREE) 10 ML IV ×2 (07:27→20:05)
[2023-12-09] MEDS: PACERONE 200 MG PO (07:27)
[2023-12-09] MEDS: PROTONIX IV 40 MG IV ×2 (07:27→20:05)
[2023-12-09] MEDS: TYLENOL 650 MG PO ×2 (07:33→16:38)
--- NOTE | 2023-12-09 13:34 | W.PN.HOSP.TC ---
Today's Communication/Plan
-
Resume Eliquis
CBC in 1 week with GI
BMP in 5 days with PCP
Monitor K, now that restarting lasix
Assessment / Plan
Assessment / Plan
68-year-old female now presenting for fatigue, found to have anemia. Admitted for acute blood loss anemia.
CVS: S1-S2 normal
Chest: CTA B/L
Abdomen: Soft, NT
Extremities: No edema
PLAN:
#Acute blood loss anemia
#Iron deficient anemia
� Transfused 2 units PRBC 12/05 - appropriately responded although elevated retic count, LDH
- EGD today - Four diminutive angiodysplastic lesions with stigmata of recent bleeding were found in the second portion of the duodenum. Coagulation for hemostasis using monopolar probe was successful.
� Ensure hemoglobin goal greater than 7
� IV PPI twice daily - can switch to PO upon dc
� Resume Eliquis
-CBC in 1 week with GI
#transaminitis
� mild
-ctm
#Leukocytosis
� Most likely stress response
� Continue to monitor fever curve, white count
#Hyponatremia
� Resolved
# CKD stage 3
�Monitor has mostly dehydrated, hypovolemic due to anemia
�Improving with resuscitation
� Continue to monitor
#Hyperkalemia
-ctm
-treat accordingly, restart lasix today
# ASCVD
# Chronic HFrEF and valvulopathy
# Paroxysmal Atrial Fibrillation
# CAD s/p stents to circumflex 2011 and mid LAD stent in 11/05/22
�No longer on Plavix
�Can resume Lasix today
�Hold Toprol due to hypotensive
-Cont amiodarone
-Now in Sinus Rhythm
-Eliquis once OK by GI
# Polycythemia vera JAK2 Gene mutation
# Bicytopenia with leucocytosis and thrombocytosis
# Benign Hypertension
Resume antihypertensives slowly
# GERD / Husain's Esophagus
IV PPI
# History of Bladder Cancer, Stable.
# Prior TURBT and BCG therapy.
Last cysto was 02/2023 and biopsy was normal at that time.
# History of Lung Cancer s/p bilateral upper lobectomies - most recent was 7 years ago.
No recent symptoms or issues in this regard.
CXR without evidence of mass, etc. Repeat chest x-ray in a.m.
# Anxiety / Depression
NPO except important meds
# Ex Smoker
#DVT Prophylaxis:Eliquis
#Code Status: Full
Anticipated Discharge: Within 24 hours
Subjective/Interval History
-
Date of Service: December 09, 2023
no acute events
Objective Data
-
Vital Signs:
Vital Signs
Temp Pulse Resp BP Pulse Ox
98 F 57 16 117/59 98
12/09/23 11:24 12/09/23 11:45 12/09/23 11:45 12/09/23 11:45 12/09/23 11:45
I&O
12/08/23 12/09/23 12/10/23
06:59 06:59 06:59
Intake Total 820 / 820 1200 / 1200
Balance 820 / 820 1200 / 1200
Review of Systems
-
History Source: Patient
All other systems: Not reviewed unless documented
Physical Exam
-
General: Well Developed, Well Nourished, No Apparent Distress, Comfortable and Conversant
HEENT: Normocephalic, Atraumatic, Nose Appears Normal and Ears Appear Normal; Negative Oxygen
Respiratory: Clear to Auscultation and Non Labored Respirations; Negative Accessory Resp Muscle Use
Cardiac: Regular Rhythm and S1/S2
GI: Soft and Nontender
Neuro: Awake, Alert, Oriented, AO x 3 and Nonfocal/Grossly Intact
Psych: Calm and Intact Judgement/Insight
[2023-12-09] MEDS: LASIX 20 MG PO (14:33)
--- NOTE | 2023-12-09 14:42 | CM ---
Patient seen bedside, reports no needs to CM at this time. Patient reports she had procedure earlier today and got good news. CM will continue to follow for all discharge planning needs.
Plan; home no needs, declined VN.
[2023-12-09] MEDS: ELIQUIS 5 MG PO (19:50)
[2023-12-09] MEDS: ZETIA 10 MG PO (21:32)
[2023-12-09] MEDS: PROZAC 20 MG PO (21:32)
[2023-12-09] MEDS: LIPITOR 80 MG PO (21:32)
[2023-12-10] VITALS (7 sets, daily range): BP systolic 113–152; BP diastolic 62–76; BMI 20.3
[2023-12-10] MEDS: NSS (PRESERVATIVE FREE) 10 ML IV (07:42)
[2023-12-10] MEDS: PROTONIX IV 40 MG IV (07:42)
[2023-12-10] MEDS: TYLENOL 650 MG PO (07:43)
[2023-12-10] MEDS: PACERONE 200 MG PO (07:43)
[2023-12-10] MEDS: LASIX 20 MG PO (07:44)
[2023-12-10] MEDS: ELIQUIS 5 MG PO (07:44)
[2023-12-10 08:12] LABS: Hematocrit 24.7 % (37.0-47.0); Hemoglobin 7.6 g/dL (12.0-16.0); Mean Corp Hgb Conc. 30.8 g/dL (33.0-37.0); Mean Corpuscular Hgb 25.2 pg (27.0-31.0); Mean Corpuscular Volume 82.1 fL (81.0-99.0); Mean Platelet Volume 11.4 fL (7.4-10.4); Platelet Count 447 10^3/uL (130-400); Red Blood Cell Count 3.01 10^6/uL (4.20-5.40)
[2023-12-10 08:57] LABS: ALT (SGPT) 46 U/L (0-35); AST (SGOT) 49 U/L (14-36); Albumin 3.2 g/dl (3.5-5.0); Alkaline Phosphatase 86 U/L (38-126); Blood Urea Nitrogen 24 mg/dl (7-17); Calcium 8.4 mg/dl (8.4-10.2); Carbon Dioxide 26 mmol/L (22-30); Chloride 103 mmol/L (98-107); Estimated Creatinine Clearance 37 ml/min; Glucose 89 mg/dl (70-99); Potassium 4.9 mmol/L (3.5-5.1); Sodium 134 mmol/L (135-145); Total Bilirubin 0.8 mg/dl (0.2-1.3); Total Protein 5.3 g/dl (6.3-8.2)
[2023-12-10 10:22] LABS: Hematocrit 22.6 % (37.0-47.0); Hemoglobin 7.1 g/dL (12.0-16.0); Mean Corp Hgb Conc. 31.4 g/dL (33.0-37.0); Mean Corpuscular Hgb 25.6 pg (27.0-31.0); Mean Corpuscular Volume 81.6 fL (81.0-99.0); Mean Platelet Volume 9.6 fL (7.4-10.4); Platelet Count 346 10^3/uL (130-400); Red Blood Cell Count 2.77 10^6/uL (4.20-5.40); Red Cell Dist. Width 24.8 % (11.5-14.5); White Blood Cell Count 14.3 10^3/uL (4.8-10.8)
--- NOTE | 2023-12-10 11:30 | W.PN.HOSP.TC ---
Addendum entered and electronically signed by Bam Arias MD 12/14/23 14:50:
Unable to determine if Eliquis is solely causing Anemia, most likely 2/2 to underlying angiodysplastic lesions combined with Eliquis - s/p hemostasis
Addendum entered and electronically signed by Bam Arias MD 12/11/23 15:12:
[id number]
Original Note:
Today's Communication/Plan
-
transfuse 1 u
f/u cbc outpatient closely within 3-5 days with GI
CMP outpatient with pcp/gi
Assessment / Plan
Assessment / Plan
68-year-old female now presenting for fatigue, found to have anemia. Admitted for acute blood loss anemia.
CVS: S1-S2 normal
Chest: CTA B/L
Abdomen: Soft, NT
Extremities: No edema
PLAN:
#Acute blood loss anemia
#Iron deficient anemia
� Transfused 2 units PRBC 12/05; appropriate responded; Transfused 1 u 12/09 prior to dc; OK to DC as per confirmation by GI.
- EGD 12/08 - Four diminutive angiodysplastic lesions with stigmata of recent bleeding were found in the second portion of the duodenum. Coagulation for hemostasis using monopolar probe was successful.
� Ensure hemoglobin goal greater than 7
� IV PPI twice daily - can switch to PO upon dc
� Resume Eliquis
-CBC in 3-5 days with GI
-OK to DC as per confirmation by GI with HgB of 7.1 - should f/u closely with repeat CBC;
-Will determine further studies outpatient
#transaminitis
� mild
-ctm outpatient
#Leukocytosis
� Most likely stress response
� Continue to monitor fever curve, white count
-F/u CBC outpatient
#Hyponatremia
� Resolved
# CKD stage 3
�Monitor has mostly dehydrated, hypovolemic due to anemia
�Improving with resuscitation
� Continue to monitor
#Hyponatremia
-mild
-ctm
f/u bmp outpatient
#Hyperkalemia
-ctm
-treat accordingly, restart lasix today
# ASCVD
# Chronic HFrEF and valvulopathy
# Paroxysmal Atrial Fibrillation
# CAD s/p stents to circumflex 2011 and mid LAD stent in 11/05/22
�No longer on Plavix
�Can resume Lasix
�Hold Toprol due to hypotensive
-Cont amiodarone
-Now in Sinus Rhythm
-Eliquis once OK by GI
# Polycythemia vera JAK2 Gene mutation
# Bicytopenia with leucocytosis and thrombocytosis
# Benign Hypertension
Resume antihypertensives
# GERD / Husain's Esophagus
ppi
# History of Bladder Cancer, Stable.
# Prior TURBT and BCG therapy.
Last cysto was 02/2023 and biopsy was normal at that time.
# History of Lung Cancer s/p bilateral upper lobectomies - most recent was 7 years ago.
No recent symptoms or issues in this regard.
CXR without evidence of mass, etc. Repeat chest x-ray in a.m.
# Anxiety / Depression
# Ex Smoker
#DVT Prophylaxis:Eliquis
#Code Status: Full
More than 30 minutes spent in discharge including
Final examination of the patient
Summarizing hospital stay
Instructions for continuing care to all relevant caregivers
Preparation of discharge records, prescriptions, and referral forms
Total time spent (35 in minutes):
Anticipated Discharge: Today
Subjective/Interval History
-
Date of Service: December 10, 2023
No acute events
Objective Data
-
Labs:
Laboratory Results
12/10/23 12/10/23
07:08 09:59
WBC 16.0 H 14.3 H
Hgb 7.6 L 7.1 L
Hct 24.7 L 22.6 L
Plt Count 447 H 346 D
Sodium 134 L
Potassium 4.9
Chloride 103
Carbon Dioxide 26
BUN 24 H
Creatinine 1.2 H
Glucose 89
Calcium 8.4
Total Bilirubin 0.8
AST 49 H
ALT 46 H
Alkaline Phosphatase 86
Vital Signs:
Vital Signs
Temp Pulse Resp BP Pulse Ox
99.6 F 82 18 113/71 98
12/10/23 07:00 12/10/23 07:43 12/10/23 07:00 12/10/23 07:43 12/10/23 07:00
I&O
12/09/23 12/10/23 12/11/23
06:59 06:59 06:59
Intake Total 1200 / 1200 1200 / 1200
Balance 1200 / 1200 1200 / 1200
Review of Systems
-
History Source: Patient
All other systems: Not reviewed unless documented
Physical Exam
-
General: Well Developed, Well Nourished, No Apparent Distress, Comfortable and Conversant
HEENT: Normocephalic, Atraumatic, Nose Appears Normal and Ears Appear Normal; Negative Oxygen
Respiratory: Clear to Auscultation and Non Labored Respirations; Negative Accessory Resp Muscle Use
Cardiac: Regular Rhythm and S1/S2
GI: Soft and Nontender
Neuro: Awake, Alert, Oriented, AO x 3 and Nonfocal/Grossly Intact
Psych: Calm and Intact Judgement/Insight
Data Reviewed
-
Labs: Labs Reviewed by me
--- NOTE | 2023-12-10 11:37 | W.DS.TRANS ---
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
-
Discharge Instructions:
Sleep Apnea Risk Intermediate
Discharge Diagnosis/Procedures Acute Blood Loss Anemia
Diet Low Cholesterol,Low Fat,Low Residue
Activity As tolerated
Blood Work Gastroenterology office will send a script for
repeat CBC - should be done early next week
F/u CMP in 1 week with pcp
Instructions:
Stand-Alone Forms:
Changes to Home Medications: Yes
Discharge Medications:
DC Medications w/original date entered in [employer]
atorvastatin 80 mg tablet (Lipitor) 80 mg PO HS High cholesterol 04/07/22
ezetimibe 10 mg tablet (Zetia) 10 mg PO HS High cholesterol 04/07/22
fluoxetine 20 mg capsule (Prozac) 20 mg PO HS Mental Health/Anxiety 04/07/22
lisinopril 5 mg tablet 5 mg PO DAILY Blood Pressure 12/28/22
empagliflozin 10 mg tablet (Jardiance) 10 mg PO DAILY 'heart protection' 02/18/23
apixaban 5 mg tablet (Eliquis) 5 mg PO BID Blood Clot Prevention/Tx 07/22/23
furosemide 20 mg tablet 20 mg PO DAILY Fluid Retention/Swelling 07/22/23
amiodarone 200 mg tablet 200 mg PO DAILY Arrhythmia 09/21/23
tolterodine 4 mg capsule,extended release 24 hr 4 mg PO HS Urinary Issue 12/06/23
ferrous sulfate 325 mg (65 mg iron) tablet 325 mg PO DAILY Supplement 12/08/23
metoprolol succinate 25 mg tablet,extended release 24 hr 12.5 mg PO BID Blood Pressure 12/08/23
pantoprazole 40 mg tablet,delayed release (Protonix) 40 mg PO BID Gastrointestinal issue #60 tabs 12/09/23
Home Medication Changes
pantoprazole 40 mg tablet,delayed release (Protonix) 40 mg PO BID Gastrointestinal issue #60 tabs 12/09/23
Pending Results: No
--- NOTE | 2023-12-10 13:28 | PN.CDI ---
CDI
- -
CDI:
Physician Documentation Request
Admit Date: 12/06/23 15:22
Dear Doctor Juana,
Patient admitted with acute blood loss anemia.
12/06 PN, 'Hold Eliquis, will restart Eliquis if HgB stable and monitor.'
12/09 PN, 'EGD 12/08 - Four diminutive angiodysplastic lesions with stigmata of recent bleeding were found in the second portion of the duodenum. Coagulation for hemostasis using monopolar probe was successful.... resume Eliquis'
Please clarify the likely relationship between these conditions:
Yes, acute blood loss anemia is associated with/ enhanced by Eliquis.
No, acute blood loss anemia is not associated with/ enhanced by but it is due to ___. (Please specify)
Unable to determine
Use of terms such as suspected, likely, concern for, or probable (associated with a specific diagnosis that is being evaluated, monitored, or treated as if it exists) are acceptable and can be coded in the inpatient setting, when documented at the
time of discharge.
Thank you,
Yuly DE,RN,CCDS
CDI Specialist
Available via [place] text
Please use your independent medical judgment in providing your response.
--- NOTE | 2023-12-10 15:27 | CM ---
Patient seen bedside, discussed patient for discharge today. CM reviewed IMM, patient not agreeable to sign at this time, discussed right to appeal discharge. Patient reports she just does not feel right, concerned with what is causing her to bleed,
TT sent to Hospitalist regarding patients concerns with discharge. GI spoke with patient, patient reports she is no longer looking to appeal her discharge. CM offered VN to patient, patient declines at this time. CM will continue to follow for all
discharge planning needs.
Plan; home no needs, declining VN at this time.
== END 2023-12-10 18:28 | disposition home or self-care (01) | DRG 811 ==
LOC: 4 WEST ACU 15:22
PROVIDERS: Student in an Organized Health Care Education/Training Program; ADMITTING PHYSICIAN Internal Medicine; CONSULT PHYSICIAN Internal Medicine; EMERGENCY PHYSICIAN Emergency Medicine; FAMILY PHYSICIAN Family Medicine
PROC: 30233N1 Transfusion of Nonautologous Red Blood Cells into Peripheral Vein, Percutaneous Approach (ICD-10-PCS; 2023-12-06)
PROC: 0W3P8ZZ Control Bleeding in Gastrointestinal Tract, Via Natural or Artificial Opening Endoscopic (ICD-10-PCS; 2023-12-09)
DX: D62 Acute posthemorrhagic anemia (principal); K31.811 Angiodysplasia of stomach and duodenum with bleeding; I13.0 Hypertensive heart and chronic kidney disease with heart failure and stage 1 through stage 4 chronic kidney disease, or unspecified chronic kidney disease; I50.22 Chronic systolic (congestive) heart failure; N18.30 Chronic kidney disease, stage 3 unspecified; I25.10 Atherosclerotic heart disease of native coronary artery without angina pectoris; I48.0 Paroxysmal atrial fibrillation; D45 Polycythemia vera; K44.9 Diaphragmatic hernia without obstruction or gangrene; E86.0 Dehydration; Z87.891 Personal history of nicotine dependence; Z85.118 Personal history of other malignant neoplasm of bronchus and lung
CPT/HCPCS: 36430; 80053; 82248; 82550; 82728; 83010; 83540; 83550; 83615; 85025; 85027; 85045; 85610; 86850; 86900; 86901; 86920; 93005; 96374; 97116; 97162; 97166; 99285; P9016

== ENCOUNTER 2024-01-28 11:37 | Inpatient (IN) | payer OTHER, SELFPAY ==
[2024-01-28] VITALS (42 sets, daily range): BP systolic 88–107; BP diastolic 39–68; BMI 21.6
--- NOTE | 2024-01-28 08:33 | ED.GENMED ---
ED Provider Triage
-
Patient seen by provider in Triage?: Seen in Triage
68 y/o F
h/o iron def, GI bleed
on iron
black stool for a few weeks
fatigue x a few days
sob this morning with exertion
also had GI 'bug' the past few days, n/v/d (black)
last transfusion was a few months ago
some mild genearlized abd pain but no tednerness
will send basic labs;
History of Present Illness
General
Chief Complaint: Abdominal Symptoms
Source: patient
Exam Limitations: none
Time Seen by Provider: 01/28/24 08:41
Nursing documentation reviewed up to this point in time: agreed with
History of Present Illness
History of Present Illness:
68-year-old female with a history of acute on chronic GI bleeding, secondary to angiodysplastic lesions of her duodenum, chronically anticoagulated presents for fatigue over the last several days. Patient says that she had a GI virus over the last
week causing nausea vomiting and diarrhea. Her stool is always dark because she is on iron but it was particularly black. The nausea vomiting diarrhea did subside over the last day or 2 but she has felt really rundown and then today felt short of
breath with exertion. She says while she was vomiting she was not able to keep down her Eliquis. She did last take a dose last night but did not take any this morning. She is also on Protonix but did not take it this morning. Patient says that
she was post to be in the office of Dr. MCLEOD as a follow-up today but instead came here. She is not having any chest pain, fever, vomiting blood, alcohol use, passing blood clots
Past History
Past History
ED Past Medical History: Arrthythmia (A fib), Cancer (Bladder cancer lung cancer), HTN and Hypercholesterolemia
ED Past Surgical History: Appendectomy, Cardiac (Stent), (X 2) and Other (Bilateral upper lung lobectomy)
Social History
Tobacco: Former smoker
Alcohol: None
Drug: Marijuana
Personal:
Living: alone
Employment: Other
Family History
Family History: Other
Phy Exam
Physical Exam
Physical Exam:
GENERAL: Alert , in no apparent distress,thin
EYE: pupils equal and reactive
NECK: Supple
ENT: o/p clr, mmm.
CARDIAC: Regular rate and rhythm .slight systolic murmur, no edema
LUNGS: Clear breath sounds bilaterally, no acute respiratory distress, no wheezes/rales/rhonchi
ABDOMEN: Soft, no abdominal tednerness, no r/g, no cvat, normal bowel sounds
HEME POS BLACK on DULCE
no active bleeding
NEUROLOGICAL: Alert and oriented, no focal neuro deficits
SKIN: Warm and dry, skin intact. extremely pale
MUSCULOSKELETAL: No edema, well perfused.
PSYCH: Normal and appropriate interaction.
Course
Orders/Labs/Results
Orders:
Orders
01/28/24 08:27
Electrocardiogram (*1) Urgent
Reason for Study: Shortness of Breath
EKG- Treatment ONCE
01/28/24 08:28
Type+Screen Urgent
Complete Blood Count/With Diff Urgent
Comprehensive Metabolic Panel Urgent
Ferritin Urgent
Comment: ADD ON
Iron Urgent
Comment: ADD ON
Manual Differential Urgent
PT/INR [Prothrombin Time] Urgent
PTT Urgent
Total Iron Binding Urgent
Comment: ADD ON
Troponin I Urgent
01/28/24 08:46
Add On- LAB Urgent
Tests Added?: iron, TIBC, ferritin
Blood Bank Products [* Blood Bank Products] Urgent
Blood Bank Products: *Packed RBC Leuko(PRBC's)
Quantity: 2
Transfuse Today: Yes
Reason: Anemia
Pantoprazole [Protonix IV] 40 mg IV NOW STA
01/28/24 09:00
Pantoprazole 80 mg/100 ml Nss [Protonix] 80 mg in 100 ml IV Q10H
Abnormal Lab Results
01/28/24
08:28
WBC 24.6 H 10^3/uL
(4.8-10.8)
RBC 2.17 L 10^6/uL
(4.20-5.40)
Hgb 4.9 L* g/dL
(12.0-16.0)
Hct 16.6 L* %
(37.0-47.0)
MCV 76.5 L fL
(81.0-99.0)
MCH 22.6 L pg
(27.0-31.0)
MCHC 29.5 L g/dL
(33.0-37.0)
RDW 24.8 H %
(11.5-14.5)
Plt Count 467 H 10^3/uL
(130-400)
MPV 11.1 H fL
(7.4-10.4)
Abs Neuts (Manual) 21.6 H 10^3/uL
(1.4-6.5)
Segmented Neutrophils 88 H %
(42-75)
Lymphocytes (Manual) 7 L %
(20-51)
PT 20.8 H Sec
(11.4-14.6)
APTT 48.0 H Sec
(23.4-35.0)
Sodium 133 L mmol/L
(135-145)
Chloride 97 L mmol/L
(98-107)
Carbon Dioxide 20 L mmol/L
(22-30)
BUN 32 H mg/dl
(7-17)
Creatinine 1.9 H mg/dL
(0.6-1.0)
Glucose 119 H mg/dl
(70-99)
Iron 28 L ug/dl
(37-170)
% Saturation 6 L %
(20-50)
Total Bilirubin 1.4 H mg/dl
(0.2-1.3)
Total Protein 5.7 L g/dl
(6.3-8.2)
01/28/24 08:28
01/28/24 08:28
Vital Signs
Initial and Last Documented VS:
Initial Vital Signs
Temp Pulse Resp BP Pulse Ox
99.9 F 71 18 98/41 95
01/28/24 08:18 01/28/24 08:18 01/28/24 08:18 01/28/24 08:18 01/28/24 08:18
Last Documented Vital Signs
Temp Pulse Resp BP Pulse Ox
99.9 F 71 18 98/41 95
01/28/24 08:18 01/28/24 08:18 01/28/24 08:18 01/28/24 08:18 01/28/24 08:18
MDM/Problems Addressed
Differential Diagnosis Includes:
, symptomatic anemia, GI bleed
MDM/Problems Addressed:
room2 liam mehta 68 y/o F
afib on eliquis, h/o GI bleed
1 week n/v/d which subsided; chronically black stool but worse
exertional dyspnea today
bp 90/50s, black heme pos stool in vault, no active bleeding
hg is 4.9
ekg shows some t wave inv infero/laterally, no cp
consneted for blood; GI aware, protonix
*Critical Care Note
Total Time (30-74mins, 75-104mins- exclusive of procedures): Not Applicable
ED Attending Note
-
Portions of this chart may have been created with voice recognition software.� Occasional wrong word or��sound alike� substitutions may have occurred due to the inherent limitations of voice recognition software.
Discharge Plan
Departure
Patient Disposition: Admit
Date of Disposition: 01/28/24
Time of Disposition: 08:48
Admit to: IMU
Presentation/result/management discussed w/ accepting MD/DO: Hospitalist
Condition: Fair
Covid-19: Not Applicable
Discharge Problem:
GI (gastrointestinal bleed), Symptomatic anemia
Prescriptions:
No Action
atorvastatin [Lipitor] 80 mg Tablet
80 mg PO HS
fluoxetine [Prozac] 20 mg Capsule
20 mg PO HS
ezetimibe [Zetia] 10 mg Tablet
10 mg PO HS
lisinopril 5 mg tablet
5 mg PO DAILY
Jardiance 10 mg tablet
10 mg PO DAILY
furosemide 20 mg tablet
20 mg PO DAILY
Eliquis 5 mg tablet
5 mg PO BID
amiodarone 200 mg Tablet
200 mg PO DAILY
ferrous sulfate 325 mg (65 mg iron) tablet
325 mg PO Q48H
metoprolol succinate 25 mg tablet extended release 24 hr
12.5 mg PO BID
pantoprazole [Protonix] 40 mg Tablet,Delayed Release (Dr/Ec)
40 mg PO BID Qty: 60 0RF
acetaminophen [Tylenol] 325 mg Tablet
650 mg PO Q4HPRN PRN (Reason: mild pain)
ondansetron [Zofran ODT] 4 mg Tablet,Disintegrating
4 mg PO Q6HPRN PRN (Reason: nausea)
Gemtesa 75 mg Tablet
75 mg PO DAILY
Interventions
Interventions:
*Risk Screen - Suicide Last Done: 01/28/24 09:00
*General Assessment Last Done: 01/28/24 09:00
*Neglect/Abuse Screening Last Done: 01/28/24 09:00
WQ-Orowbn-Siirhnbalm Assessment Last Done: 01/28/24 09:00
Discharge Date and Time
Print Language: INDONESIAN
[2024-01-28 08:45] LABS: Hematocrit 16.6 % (37.0-47.0); Hemoglobin 4.9 g/dL (12.0-16.0); Mean Corp Hgb Conc. 29.5 g/dL (33.0-37.0); Mean Corpuscular Hgb 22.6 pg (27.0-31.0); Mean Corpuscular Volume 76.5 fL (81.0-99.0); Mean Platelet Volume 11.1 fL (7.4-10.4); Platelet Count 467 10^3/uL (130-400); Red Blood Cell Count 2.17 10^6/uL (4.20-5.40); Red Cell Dist. Width 24.8 % (11.5-14.5); White Blood Cell Count 24.6 10^3/uL (4.8-10.8)
[2024-01-28 08:49] LABS: INR 1.81; PT 20.8 Sec (11.4-14.6)
[2024-01-28 08:54] LABS: ALT (SGPT) 22 U/L (0-35); AST (SGOT) 36 U/L (14-36); Albumin 3.6 g/dl (3.5-5.0); Alkaline Phosphatase 78 U/L (38-126); Blood Urea Nitrogen 32 mg/dl (7-17); Calcium 8.6 mg/dl (8.4-10.2); Carbon Dioxide 20 mmol/L (22-30); Chloride 97 mmol/L (98-107); Glucose 119 mg/dl (70-99); Potassium 3.8 mmol/L (3.5-5.1); Sodium 133 mmol/L (135-145); Total Bilirubin 1.4 mg/dl (0.2-1.3); Total Protein 5.7 g/dl (6.3-8.2); eGFR 28.23
[2024-01-28] MEDS: PROTONIX IV 40 MG IV (08:55)
[2024-01-28] MEDS: PROTONIX 100 IV ×2 (08:55→21:28)
[2024-01-28 08:57] LABS: Eosinophils 1 % (0-6); Lymphocytes 7 % (20-51); Metamyelocytes 2 % (-); Monocytes 2 % (2-9); Segmented Neutrophils 88 % (42-75)
[2024-01-28 08:58] LABS: Anisocytosis 2+; Normal RBC Morphology No; Nucleated Red Blood Cells 3 (-); Platelets Checked Yes; Total Cells Counted 100; Vacuolated Segs 3+
[2024-01-28 08:59] LABS: Ovalocytes 2+; Polychromasia 1+; Schistocytes 1+; Tear Drop Red Blood Cells 1+
[2024-01-28 09:00] LABS: Absolute Neutrophils -Man Diff 21.6 10^3/uL (1.4-6.5); Band Neutrophils 0 % (0-3)
--- NOTE | 2024-01-28 09:18 | CON.GI ---
Addendum entered and electronically signed by Kristopher Burks DO 01/28/24 11:19:
I saw and examined the patient.
The SECURITY SOLUTIONS ENGINEER's note was reviewed and I agree with the note.
Comment: Ms Gonsalez is a 68 y.o female with past medical history of GERD, HLD, polycythemia vera, short-segment non-dysplastic BE, hx of colon polyps, bladder cancer (s/p resection and chemo), lung cancer (s/p b/l upper lobectomies), CAD (s/p
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 Previous GI eval back on 07/2022 where bi-directional endoscopic evaluation was grossly unrevealing along
with VCE in 2022 without source of GI bleeding, only noting few small colon polyps and short-segment, non-dysplastic BE. Represented again later on 11/2023 for symptomatic anemia in setting of acute on chronic JOSSELYN where an eventual EGD 12/09/2023
revealed few AVMs with stigmata of recent bleeding (s/p cauterization). She received a total of 3 uPRBCs that hospitalization. She was supposed to f/u in the office, however given her dark black stools and significant fatigue and SOB she came to the
ED found to have Hgb 4.9 and HD-stable. No other NSAIDs. Last eliquis dose on 01/26. Suspect her acute on chronic anemia and melena in setting of recurrent SB AVMs resulting in her presentation and current anticoagulation.
Plan:
- Okay for diet today as tolerated
- Empiric IV PPI 40 mg BiD
- Hold eliquis (last dose 01/26)
- Trend Hgb with serial CBC, transfuse for goal Hgb > 7.0
- Repeat iron studies, if iron deficient start IV iron
- Plan for EGD with Push-enteroscopy tomorrow, 01/29/2024, to further evaluate and potentially treat SB AVMs to rule out additional AVMs that may be more distally as well
- Agree with consideration of repeat cross-sectional imaging given significant weight loss (40 lbs) and her cancer history
- Ultimately, she would benefit from serial blood transfusions and IV iron as outpatient as well as Cardiology evaluation for consideration of Watchman if she continues to have rebleeding AVMs
- Rest of care as outlined below
Original Note:
Consultation
-
Date/Time Consultation Requested: 01/28/2432
Date/Time Consultation Performed: 01/28/24919
Requesting Provider: Shirley Esetban PA-C
Performing Provider: BOB Rankin, Kristopher Burks DO
Reason for Consultation: anemia
Medical History
Chief Complaint / HPI
Chief Complaint: fatigue
History of Present Illness:
Pt is a 68yo presents with hx atrial fibrillation on Eliquis, history of lung cancer with bilateral upper lobe lobectomies, bladder cancer with bladder resection, CAD with cardiac stents previously on Plavix, olson's esophagus, hypertension,
GERD, CKD, admission for pneumonia in September. She completed GI work up in July 2022 as noted with anemia. At that time she endoscopy with Dr. Boyer, which showed Olson's esophagus, a medium size hiatal hernia, and focal intestinal metaplasia
of the stomach. Colonoscopy at that time showed diverticulosis, 2 small adenomatous polyps from the ascending colon and 1 adenomatous polyp from the sigmoid colon. Polyp post polypectomy scar showing hyperplastic changes. She also completed
capsule with normal finding with capsule not reaching cecum. Overall there were no findings to explain her anemia. with then admitted in November with hbg down to 6.1. She completed EGD with enteroscopy to 2nd portion duodenum with 5 cm HH,
erythema in antrum, 4 non recently bleeding angiodysplastic lesion treated with monopolar probe. Pt received 3 units PRBC's in November. Hgb after admission on 12/15 was 9.1. She was due for GI follow up today but due to fatigue presents to ER and
noted hbg 4.9 on admission. She admits to recent nausea/vomiting/diarrhea over last week. She was noted with dark stools but reports chronic black stool with iron use.
She currently admits wt loss of 40 + lbs over last year and half with good appetite. She denies odynophagia, dysphagia, GERD, or red blood in stools. Denies NSAID use.
Past Medical History
Past Medical History: Arrhythmias (afib), CAD (with prior stent), Cancer (lung cancer, bladder cancer 07/2022), CHF, GERD, HTN, Hypercholesterolemia, Psychiatric (anxiety, depression, polycythemia vera) and Other (CKD, valvular disease (MR),
olson's esophagus )
Past Surgical History: Appendectomy, Cardiac (stent), , Orthopedic (femur surgery), Urological (TURBT) and Other (bilateral upper lung lobectomies, radial pseudoaneurysm with repair, cochlear implant)
Social History
Tobacco: Former Smoker
Alcohol: Former
Drug: Marijuana (daily use)
Living: With Family (step daughter )
Employment: Retired
Family History
Family History: Other (no family hx colon Ca or polyps)
Allergies / Home Medications
Allergy/AdvReac Type Severity Reaction Status Date / Time
pollen extracts Allergy runny Verified 01/28/24 08:19
nose,itchy
eyes
�Medication �Instructions �Recorded
atorvastatin 80 mg tablet (Lipitor) 80 mg PO HS High cholesterol 04/07/22
ezetimibe 10 mg tablet (Zetia) 10 mg PO HS High cholesterol 04/07/22
fluoxetine 20 mg capsule (Prozac) 20 mg PO HS Mental Health/Anxiety 04/07/22
lisinopril 5 mg tablet 5 mg PO DAILY Blood Pressure 12/28/22
empagliflozin 10 mg tablet 10 mg PO DAILY 'heart protection' 02/18/23
(Jardiance)
apixaban 5 mg tablet (Eliquis) 5 mg PO BID Blood Clot 07/22/23
Prevention/Tx
furosemide 20 mg tablet 20 mg PO DAILY Fluid 07/22/23
Retention/Swelling
amiodarone 200 mg tablet 200 mg PO DAILY Arrhythmia 09/21/23
ferrous sulfate 325 mg (65 mg 325 mg PO Q48H Supplement 12/08/23
iron) tablet
metoprolol succinate 25 mg 12.5 mg PO BID Blood Pressure 12/08/23
tablet,extended release 24 hr
pantoprazole 40 mg tablet,delayed 40 mg PO BID Gastrointestinal 12/09/23
release (Protonix) issue #60 tabs
acetaminophen 325 mg tablet 650 mg PO Q4HPRN PRN mild pain 01/28/24
(Tylenol)
ondansetron 4 mg disintegrating 4 mg PO Q6HPRN PRN nausea 01/28/24
tablet
vibegron 75 mg tablet (Gemtesa) 75 mg PO DAILY 01/28/24
Review of Systems
-
History Source: Patient and Family
Constitutional: Reports Weight Loss ( 40 + lbs last 1 1/2 years ) and Other (feeling cold )
EENT: Reports No Symptoms
Respiratory: Reports No Symptoms
Cardiac: Reports No Symptoms
Abdomen/GI: Reports Nausea, Vomiting, Diarrhea and Black Stools
: Reports No Symptoms
Musculoskeletal: Reports No Symptoms
Skin: Reports Itching
Neurological: Reports Weakness
Endocrine: Reports No Symptoms
Hematologic/Lymphatic: Reports Bleeding
Vital Signs
Temp Pulse Resp BP Pulse Ox
99.9 F 71 18 98/41 95
01/28/24 08:18 01/28/24 08:18 01/28/24 08:18 01/28/24 08:18 01/28/24 08:18
Physical Exam
Exam
General: Well Developed, Well Nourished and No Apparent Distress
HEENT: Normocephalic and Anicteric
Respiratory: Clear
Cardiac: Regular Rhythm and Murmur
GI: Soft, Non Tender and Non Distended
Rectal: Black (heme + per ER)
Musculoskeletal: No Clubbing and No Cyanosis
Skin: Warm and Dry
Neuro: Awake, Alert and AO x 3
Psych: Calm
Results
WBC 24.6 10^3/uL (4.8-10.8) H 01/28/24 08:28
Hgb 4.9 g/dL (12.0-16.0) L* 01/28/24 08:
Hct 16.6 % (37.0-47.0) L* 01/28/24 08:
MCV 76.5 fL (81.0-99.0) L 01/28/24 08:
Plt Count 467 10^3/uL (130-400) H 01/28/24 08:28
PT 20.8 Sec (11.4-14.6) H 01/28/24 08:28
INR 1.81 01/28/24 08:
APTT 48.0 Sec (23.4-35.0) H 01/28/24 08:28
Sodium 133 mmol/L (135-145) L 01/28/24 08:
Potassium 3.8 mmol/L (3.5-5.1) 01/28/24 08:
Chloride 97 mmol/L (98-107) L 01/28/24 08:28
Carbon Dioxide 20 mmol/L (22-30) L 01/28/24 08:28
BUN 32 mg/dl (7-17) H 01/28/24 08:
Creatinine 1.9 mg/dL (0.6-1.0) H 01/28/24 08:28
Calcium 8.6 mg/dl (8.4-10.2) 01/28/24 08:28
Total Bilirubin 1.4 mg/dl (0.2-1.3) H 01/28/24 08:28
AST 36 U/L (14-36) 01/28/24 08:28
ALT 22 U/L (0-35) 01/28/24 08:
Alkaline Phosphatase 78 U/L (38-126) 01/28/24 08:28
Diagnostic Image Results:
Prior GI Procedures:
EGD/enteroscopy 11/2023 rodrigues - Z-line regular.
- 5 cm hiatal hernia.
- Erythematous mucosa in the antrum.
- Four recently bleeding angiodysplastic lesions in
the duodenum. Treated with a monopolar probe.
- No specimens collected.
EGD:2022 Dr. Boyer short segment olson's med HH, single gastric polyp bx + focal intestinal metaplasia no dysplasia
Colonoscopy: 07/2022 Merlin, with diverticulosis 2 3mm polyp AC, 1 3 mm polyp sigmoid, post polypectomy scar with some adjacent mucosal finding of nodularity ? residual and IH. bx TA and scar area with fragments of hyperplastic changes and mild
edema no residual adenoma presents.
Capsule endoscopy 08/2022 with normal findings.
Assessment / Plan
-
Pt is a 68yo presents with hx atrial fibrillation on Eliquis, history of lung cancer with bilateral upper lobe lobectomies, bladder cancer with bladder resection, CAD with cardiac stents previously on Plavix, olson's esophagus, hypertension,
GERD, CKD, admission for pneumonia in September. She completed GI work up in July 2022 as noted with anemia. At that time she endoscopy with Dr. Boyre, which showed Olson's esophagus, a medium size hiatal hernia, and focal intestinal metaplasia
of the stomach. Colonoscopy at that time showed diverticulosis, 2 small adenomatous polyps from the ascending colon and 1 adenomatous polyp from the sigmoid colon. Polyp post polypectomy scar showing hyperplastic changes. She also completed
capsule with normal finding with capsule not reaching cecum. Overall there were no findings to explain her anemia. with then admitted in November with hbg down to 6.1. She completed EGD with enteroscopy to 2nd portion duodenum with 5 cm HH,
erythema in antrum, 4 non recently bleeding angiodysplastic lesion treated with monopolar probe. Pt received 3 units PRBC's in November. Hgb after admission on 12/15 was 9.1. She was due for GI follow up today but due to fatigue presents to ER and
noted hbg 4.9 on admission. She admits to recent nausea/vomiting/diarrhea over last week. She was noted with dark stools but reports chronic black stool with iron use.
-symptomatic acute on chronic iron deficiency anemia
-hx duodenal angiodysplastic lesions
-CKD
-afib on Eliquis prior to admission
-CAD with stents on chronic Plavix prior to admission
-hx colon polyps
-40 + lb wt loss
other medical problems:
-lung CA with resection
-bladder CA s/p TURBT
-moderate to severe MR
-prior PNA
-HTN
-GERD
-olson's
-hx colon polyps
-CHF
-polycythemia vera
-
PLAN:
Etiology of anemia may be multi factorial with hx CKD, bladder CA but noted with increase diarrhea with black heme + stool and concern for GI bleeding (recurrent AVM vs other )
plan for EGD with enteroscopy in AM
cont Eliquis hold last dose 01/26
agree with transfusion
PPI
trend hbg
2 large bore IV's with GI bleeding
consider CT with Wt loss if creat allow
check UA with bladder CA to exclude component of urologic loss
consider cardiology evaluation to discuss watchman as anemia issues started with initiation of
updated step daughter at bedside
-
-
Thank you for consultation and allowing me to participate in the patient's care. Please call the front desk manager GI physician during the after hours with any questions or concerns.
[2024-01-28 09:20] LABS: Iron 28 ug/dl (37-170)
[2024-01-28 09:30] LABS: Percent Saturation 6 % (20-50); Total Iron Binding Capacity 424 ug/dl (265-497)
[2024-01-28 09:32] LABS: Troponin I < 0.012 ng/ml
[2024-01-28 10:16] LABS: Ferritin 36.8 ng/ml (11.1-264.0)
--- NOTE | 2024-01-28 11:11 | HPS.HSE ---
Family Physician
-
Family Physician: Carlita Kwon
Chief Complaint
-
SOB
History of Present Illness
68yo F with PMHx of CAD s/p PCI, afib on ELiquis, PUD s/p EGD with Hx of GIB, HLD, anxiety, HTN, overactive bladder, HFrEF, polycytemia vera, GERD, barrets esophagus, Hx of bladdrer CA, Hx of lung CA s/p b/l lobectomies, PAD, chronic leukocytosis
came after started to feel SOB while walking to the bathroom. She had nausea and vomiting for past week and was staying in the bed the whole time. Found with severe anemia in ED hgb 4.9. Has chronic black stool on iron, however FOBT positive in ED.
Medical History
Past Medical History
Past Medical History: Reports Other
Additional Past Medical History:
see HPI
Past Surgical History: Reports Other
Additional Past Surgical History:
See HPI
Social History
Tobacco: Former Smoker
Drug: None
Living: With Family
Family History
Family History: Not pertinent
Allergies / Home Medications
Allergies reflects when Allergies were last updated in [email or web address]
Home Medications with original date entered in [email or web address]
Allergy/Medication List:
Allergies
Allergy/AdvReac Type Severity Reaction Status Date / Time
pollen extracts Allergy runny Verified 01/28/24 08:19
nose,itchy
eyes
Home Medications
atorvastatin 80 mg tablet (Lipitor) 80 mg PO HS High cholesterol 04/07/22
ezetimibe 10 mg tablet (Zetia) 10 mg PO HS High cholesterol 04/07/22
fluoxetine 20 mg capsule (Prozac) 20 mg PO HS Mental Health/Anxiety 04/07/22
lisinopril 5 mg tablet 5 mg PO DAILY Blood Pressure 12/28/22
empagliflozin 10 mg tablet (Jardiance) 10 mg PO DAILY 'heart protection' 02/18/23
apixaban 5 mg tablet (Eliquis) 5 mg PO BID Blood Clot Prevention/Tx 07/22/23
furosemide 20 mg tablet 20 mg PO DAILY Fluid Retention/Swelling 07/22/23
amiodarone 200 mg tablet 200 mg PO DAILY Arrhythmia 09/21/23
ferrous sulfate 325 mg (65 mg iron) tablet 325 mg PO Q48H Supplement 12/08/23
metoprolol succinate 25 mg tablet,extended release 24 hr 12.5 mg PO BID Blood Pressure 12/08/23
pantoprazole 40 mg tablet,delayed release (Protonix) 40 mg PO BID Gastrointestinal issue #60 tabs 12/09/23
acetaminophen 325 mg tablet (Tylenol) 650 mg PO Q4HPRN PRN mild pain 01/28/24
ondansetron 4 mg disintegrating tablet 4 mg PO Q6HPRN PRN nausea 01/28/24
vibegron 75 mg tablet (Gemtesa) 75 mg PO DAILY 01/28/24
Review of Systems
-
History Source: Patient
A 12 point ROS was completed and negative except as noted: Yes
Physical Exam
Vital Signs
Vital Signs
Temp Pulse Resp BP Pulse Ox
97.7 F 67 16 93/51 98
01/28/24 10:35 01/28/24 10:35 01/28/24 10:35 01/28/24 10:35 01/28/24 10:35
Physical Exam
General: No Apparent Distress
HEENT: NormoCephalic
Respiratory: Clear
Cardiac: S1/S2
GI: Soft, Non Tender and Non Distended
Musculoskeletal: No Clubbing, No Cyanosis and No Edema
Skin: Warm
Neuro: Awake, Alert, Oriented and AO x 3
Psych: Calm
Laboratory Results
-
01/28/24 08:28
01/28/24 08:28
Laboratory Results
PT 20.8 Sec (11.4-14.6) H 01/28/24 08:28
INR 1.81 01/28/24 08:
APTT 48.0 Sec (23.4-35.0) H 01/28/24 08:
Total Bilirubin 1.4 mg/dl (0.2-1.3) H 01/28/24 08:28
AST 36 U/L (14-36) 01/28/24 08:
ALT 22 U/L (0-35) 01/28/24 08:
Alkaline Phosphatase 78 U/L (38-126) 01/28/24 08:
Troponin I < 0.012 ng/ml 01/28/24 08:
Data Reviewed
-
Lab Data: Labs Reviewed by me
Impression/Plan
-
A/P:
#Acute blood loss anemia, symptomatic 2/2 GIB
#JOSSELYN
PPI drip
GI consult
Hold Plavix and Eliquis (last dose of Eliquis in the evening prior to admisison)
NPO with sips until MN, then strict NPO for possible EGD
two large bore IV, transfuse to keep Hgb>8, serial H&H
#Afib, paroxysmal
#CAD, stable s/p PCI
hold eliquis and Plavix, restart when Ok with GI
ttelemetry
cont rate/rhythm control
#Essential HTN
hold antihypertensives to avouid hypotension with significant anemia
#recent nausea/vomiting/abd pain
symptom-free at the time of admission
monitor
#Chronic leukocytosis
#Thrombocytosis, recurrent
#Polycytemia vera
follow CBC
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
#MICHAEL on CKD stage 3a-b
Baseline Cr 1.4
2/2 anemia
follow Cr after transfusion
#Bilirubinemia
#Recurrent transaminitis
check LDH, direct bili
Hepatitis profile
follow LFT
#Hx of lung CA
chest XR
#Chronic HFrEF
#Overactive bladder
#HLD
#Anxiety d/o
cont home meds, watch for fluid overload
DVT ppx SCDs
Full code
I have spent at least 78min reviewing chart, test results, communication with cosnultants and direct patient care
[2024-01-28] MEDS: FEOSOL 325 MG PO (12:51)
[2024-01-28 13:30] LABS: Direct Bilirubin 0.4 mg/dl (0.0-0.4); LDH 751 U/L (120-246)
[2024-01-28 13:38] LABS: Hemoglobin 5.2 g/dL (12.0-16.0)
[2024-01-28 13:39] LABS: Hematocrit 16.7 % (37.0-47.0)
--- NOTE | 2024-01-28 13:39 | PTCARENOTE ---
Received patient from ED via stretcher. AAOx3, ambulated with assistance to bed. Assessed and oriented to room. child monitor reading NSR with first degree AV block. Call mcclure in close reach.
[2024-01-28] MEDS: TYLENOL 650 MG PO (14:03)
--- NOTE | 2024-01-28 15:49 | CON.ONC ---
Impression
Impression
heme positive stool
iron deficient anemia
ABLA
Weight loss, unintentional over past 2 years
Blake 2 positive MPN -OP follow up with Dr. Tran scheduled February 2024
AF DOAC on hold, CAD/stents plavix on hold
HFrEF
Bladder cancer -follow up with [facility] primary oncologist
Lung cancer -follow up with [facility] primary oncologist
Plan
Plan
DOAC on hold
GI evaluation underway
IV iron ordered
transfuse prn
check B12/folate
defer to GI/cardiology regarding risk/benefit of continued anticoagulation and antiplatelet. If anticoagulation contraindicated, would cardiology consider watchman?
OP follow up with Dr. Tran 02/19/2024 for continued management of MPN and JOSSELYN
Patient History
History of Present Illness
68yo F presented with LIRA. She report 'GI bug' symptoms last week with nausea, vomiting, and diarrhea that resolved. She denies any subjective fevers with her symptoms last week. She reports dark stools that she thought was related to PO iron.
She has been compliant with PPI, however, she tells me that she vomited up her pills last week. She denies any hematemesis or BRBPR. She denies any dizziness, chest pain, or palpations. She is on DOAC for stroke ppx with atrial fibrillation.
Inital evaluation notable for WBC 26.6, Hgb 4.9, platelet count 467,000, PT 20.8, INR 1.81, PTT 48, Sodium 133, BUN 32, creatinine 1.9, Tbili 1.4 with normal transaminase, ferritin 36.8, ANDRE negative. She is receiving 1 Unit PRBC at time of visit.
CXR no acute abnormalities. She was hospitalized in November 2023 for mangement of ABLA. GI evaluation at that time showed 4 angiodysplastic lesions with stigmata of recent bleeding in the 2nd portion of duodenum.
Afebrile, no hypoxia or hypotension
Past-Medical/Surgical History
PMH/PSH Blake 2 positive myeloproliferative disorder, splenomegaly, iron deficient anemia, atrial fibrillation, ICM, moderate MR, carotid stenosis, CAD, HFrEF, GERD, HTN, HLD, anxiety, depression, bladder cancer treated by Dr. Pichardo [facility] 2022,
bilateral metachronous lung cancers treated surgically around [address] Khloe Patten [facility] appendectomy, , R ORIF, TURBT, radial pseudoaneurysm with repair, cochlear implant
Social former smoker, daily marijuana use, lives with room mate.
Family: denies malignancy
Patient Medication
�Medication �Instructions �Recorded �Confirmed �Last Taken �Type
atorvastatin 80 mg tablet (Lipitor) 80 mg PO HS High cholesterol 04/07/22 01/28/24 01/27/24 History
ezetimibe 10 mg tablet (Zetia) 10 mg PO HS High cholesterol 04/07/22 01/28/24 01/27/24 History
fluoxetine 20 mg capsule (Prozac) 20 mg PO HS Mental Health/Anxiety 04/07/22 01/28/24 01/27/24 History
lisinopril 5 mg tablet 5 mg PO DAILY Blood Pressure 12/28/22 01/28/24 01/27/24 History
empagliflozin 10 mg tablet 10 mg PO DAILY 'heart protection' 02/18/23 01/28/24 01/27/24 History
(Jardiance)
apixaban 5 mg tablet (Eliquis) 5 mg PO BID Blood Clot 07/22/23 01/28/24 01/27/24 History
Prevention/Tx
furosemide 20 mg tablet 20 mg PO DAILY Fluid 07/22/23 01/28/24 01/27/24 History
Retention/Swelling
amiodarone 200 mg tablet 200 mg PO DAILY Arrhythmia 09/21/23 01/28/24 01/27/24 History
ferrous sulfate 325 mg (65 mg 325 mg PO Q48H Supplement 12/08/23 01/28/24 12/06/23 History
iron) tablet
metoprolol succinate 25 mg 12.5 mg PO BID Blood Pressure 12/08/23 01/28/24 01/27/24 History
tablet,extended release 24 hr
pantoprazole 40 mg tablet,delayed 40 mg PO BID Gastrointestinal 12/09/23 01/28/24 01/27/24 Rx
release (Protonix) issue #60 tabs
acetaminophen 325 mg tablet 650 mg PO Q4HPRN PRN mild pain 01/28/24 01/28/24 Unknown History
(Tylenol)
ondansetron 4 mg disintegrating 4 mg PO Q6HPRN PRN nausea 01/28/24 01/28/24 Unknown History
tablet
vibegron 75 mg tablet (Gemtesa) 75 mg PO DAILY 01/28/24 01/28/24 01/27/24 History
Active Medications
Generic Name Dose Route Start Last Admin
Trade Name Freq PRN Reason Stop Dose Admin
Acetaminophen 650 mg 01/28/24 12:21 01/28/24 14:03
Acetaminophen 325 Mg Tablet PO 02/25/24 12:20 650 mg
Q4HPRN PRN Administration
mild pain
Amiodarone HCl 200 mg 01/29/24 08:00
Amiodarone 200 Mg Tablet PO 02/26/24 07:59
DAILY STEPHANIE
Atorvastatin Calcium 80 mg 01/28/24 22:00
Atorvastatin (Lipitor) 80 Mg Tablet PO 02/25/24 21:59
HS STEPHANIE
Bisacodyl 10 mg 01/28/24 12:21
Bisacodyl 10 Mg Rectal Suppository RECTAL 02/25/24 12:20
[id number] PRN
constipation
Dapagliflozin 10 mg 01/29/24 08:00
Dapagliflozin (Farxiga) 10 Mg Tablet PO 02/26/24 07:59
DAILY STEPHANIE
Ezetimibe 10 mg 01/28/24 22:00
Ezetimibe (Zetia) 10 Mg Tablet PO 02/25/24 21:59
HS STEPHANIE
Ferrous Sulfate 325 mg 01/28/24 12:00 01/28/24 12:51
Ferrous Sulfate 325 Mg Tablet PO 02/25/24 11:59 325 mg
Q48H STEPHANIE Administration
Fluoxetine HCl 20 mg 01/28/24 22:00
Fluoxetine 20 Mg Capsule PO 02/25/24 21:59
HS STEPHANIE
Pantoprazole Sodium 80 mg in 100 mls @ 10 mls/hr 01/28/24 09:00 01/28/24 08:55
Protonix IV 100 mls
Q10H STEPHANIE Administration
8 MG/HR
Metoprolol Succinate 12.5 mg 01/28/24 20:00
Metoprolol 12.5 Mg Extended Release Dose (1/2 Of 25 Mg Xl Tablet) PO 02/25/24 19:59
BID STEPHANIE
Ondansetron HCl 4 mg 01/28/24 12:21
Ondansetron 4 Mg/2 Ml Vial IV 02/25/24 12:20
Q8HPRN PRN
nausea and vomiting
Polyethylene Glycol 17 grams 01/28/24 12:21
Polyethylene Glycol Powder 17 Grams Packet PO 02/25/24 12:20
DAILYPRN PRN
constipation
Senna/Docusate Sodium 1 tablet 01/28/24 12:21
Docusate W/Senna (Yasmin-Colace) Tablet PO 02/25/24 12:20
BIDPRN PRN
constipation
Sodium Chloride 0 flush 01/28/24 13:00
Sodium Chloride 0.9% (Flush) Syringe IV 02/25/24 12:59
PER PROTOCOL STEPHANIE
Tolterodine Tartrate 4 mg 01/29/24 08:00
Tolterodine 4 Mg Extended Release Capsule PO 02/26/24 07:59
DAILY STEPHANIE
Review of Systems
-
ROS notable for HPI, otherwise negative
Physical Exam
-
General: No Apparent Distress
HEENT: Moist Mucous Membranes; Negative Jaundice
Cardiology: S1 and S2
Pulmonary: Clear
GI: Soft
Extremities: Pulses Present; Negative Edema
Neurology: Non Focal
Skin: Warm
Psych: Calm
Labs
Lab Results
WBC 24.6 10^3/uL (4.8-10.8) H 01/28/24 08:28
RBC 2.17 10^6/uL (4.20-5.40) L 01/28/24 08:28
Hgb 5.2 g/dL (12.0-16.0) L* 01/28/24 12:57
Hct 16.7 % (37.0-47.0) L* 01/28/24 12:57
MCV 76.5 fL (81.0-99.0) L 01/28/24 08:28
MCH 22.6 pg (27.0-31.0) L 01/28/24 08:28
MCHC 29.5 g/dL (33.0-37.0) L 01/28/24 08:28
RDW 24.8 % (11.5-14.5) H 01/28/24 08:28
Plt Count 467 10^3/uL (130-400) H 01/28/24 08:28
MPV 11.1 fL (7.4-10.4) H 01/28/24 08:28
Creatinine 1.9 mg/dL (0.6-1.0) H 01/28/24 08:28
Vital Signs
Vital Signs
Temp Pulse Resp BP Pulse Ox
97.7 F 74 16 105/51 98
01/28/24 13:51 01/28/24 13:51 01/28/24 13:51 01/28/24 13:51 01/28/24 13:40
[2024-01-28 16:53] LABS: Urine Albumin Trace (Neg - Trace); Urine Bilirubin Negative (Negative); Urine Character Clear (Clear); Urine Color Yellow; Urine Glucose 2+ (Negative); Urine Ketone Negative (Negative); Urine Leukocyte 1+ (Negative); Urine Nitrite Negative (Negative); Urine Occult Blood Negative (Negative); Urine Specific Gravity 1.015 (<1.030); Urine Urobilinogen Negative (Neg - 1+)
[2024-01-28 17:01] LABS: Urine Bacteria Many (Negative); Urine White Cell 21-25 /HPF (0-5)
[2024-01-28 17:02] LABS: Urine Red Blood Cell 0-2 /HPF (0-2)
[2024-01-28] MEDS: TOPROL XL PO (19:57)
[2024-01-28 20:46] LABS: Hematocrit 22.6 % (37.0-47.0); Hemoglobin 7.5 g/dL (12.0-16.0)
[2024-01-28] MEDS: PROZAC 20 MG PO (21:21)
[2024-01-28] MEDS: ZETIA 10 MG PO (21:21)
[2024-01-28] MEDS: LIPITOR 80 MG PO (21:22)
[2024-01-29] VITALS (16 sets, daily range): BP systolic 99–129; BP diastolic 51–74; BMI 19.4
--- NOTE | 2024-01-29 03:04 | DOWNTIME ---
There was a [employer] Residential Property Manager Downtime on 01/29/2024 from 0100 to 01/29/2024 at 0300. Downtime documentation of patient's care, including medication administrations, has been reconciled in the electronic record per guidelines. Refer to the
patient's paper chart under the miscellaneous tab to see printed paper medication records and downtime forms.
[2024-01-29 05:21] LABS: % Basophils 0.7 % (0-2); % Eosinophils 0.4 % (0-6); % Immature Granulocytes 4.7 % (0-0.5); % Lymphocytes 4.8 % (20.5-51.1); % Neutrophils 85.4 % (42.2-75.2); ALT (SGPT) 24 U/L (0-35); AST (SGOT) 35 U/L (14-36); Absolute Basophils 0.1 10^3/uL (0-0.2); Absolute Eosinophils 0.1 10^3/uL (0-0.7); Absolute Immature Granulocytes 0.9 10^3/uL (0-0.05); Absolute Lymphocytes 0.9 10^3/uL (1.2-3.4); Absolute Monocytes 0.7 10^3/uL (0.1-0.6); Absolute Neutrophils 15.4 10^3/uL (1.4-6.5); Albumin 3.5 g/dl (3.5-5.0); Alkaline Phosphatase 84 U/L (38-126); Blood Urea Nitrogen 26 mg/dl (7-17); Calcium 8.4 mg/dl (8.4-10.2); Carbon Dioxide 22 mmol/L (22-30); Chloride 101 mmol/L (98-107); Estimated Creatinine Clearance 30 ml/min; Glucose 91 mg/dl (70-99); Hemoglobin 9.1 g/dL (12.0-16.0); Mean Corp Hgb Conc. 32.5 g/dL (33.0-37.0); Mean Corpuscular Hgb 26.4 pg (27.0-31.0); Mean Corpuscular Volume 81.2 fL (81.0-99.0); Mean Platelet Volume 11.4 fL (7.4-10.4); Nucleated Red Blood Cells % 1.3 %; Platelet Count 395 10^3/uL (130-400); Potassium 4.2 mmol/L (3.5-5.1); Red Blood Cell Count 3.45 10^6/uL (4.20-5.40); Sodium 137 mmol/L (135-145); Total Bilirubin 2.1 mg/dl (0.2-1.3); Total Protein 5.6 g/dl (6.3-8.2)
[2024-01-29 05:39] LABS: NT-proBNP 7870 pg/ml
[2024-01-29 05:51] LABS: Hepatitis B Surface Antigen Negative (Negative)
[2024-01-29 06:09] LABS: Hepatitis B Core Ab, Total Negative (Negative)
[2024-01-29 06:27] LABS: Folate 4.9 ng/ml (2.76-20); Vitamin B12 887 pg/ml (239-931)
[2024-01-29] MEDS: PROTONIX 100 IV (07:25)
[2024-01-29] MEDS: TOPROL XL 12.5 MG PO ×2 (08:29→20:43)
[2024-01-29] MEDS: FARXIGA 10 MG PO (08:29)
[2024-01-29] MEDS: DETROL LA 4 MG PO (08:29)
[2024-01-29] MEDS: PACERONE 200 MG PO (08:30)
--- NOTE | 2024-01-29 09:50 | W.PN.ONC2 ---
Today's Communication / Plan
-
follow CBC, transfuse prn
Impression
Impression
She has recurrent GI blood loss anemia, on DOAC for afib
DOAC on hold, support w/ transfusions, iron infusions
Further w/u per GI
May not be a candidate for continued anticoagulation
Weight loss, unintentional over past 2 years
Blake 2 positive MPN -OP follow up with Dr. Tran scheduled February 2024
HFrEF
Bladder cancer -follow up with [facility] primary oncologist
Lung cancer -follow up with [facility] primary oncologist
Plan
Plan
DOAC on hold, support w/ transfusions, iron infusions
Further w/u per GI
defer to GI/cardiology regarding risk/benefit of continued anticoagulation and antiplatelet.
OP follow up with Dr. Tran 02/19/2024 for continued management of MPN and JOSSELYN
Subjective/Objective
Chief Complaint
insomnia
Subjective
denies bleeding. No BM
Vital Signs:
Vital Signs
Temp Pulse Resp BP Pulse Ox
97.8 F 75 18 116/56 100
01/29/24 07:09 01/29/24 08:30 01/29/24 07:09 01/29/24 08:30 01/29/24 08:22
Lab Results:
Laboratory Data
WBC 18.0 10^3/uL (4.8-10.8) H 01/29/24 04:48
Hgb 9.1 g/dL (12.0-16.0) L D 01/29/24 04:48
Hgb Cancelled 01/29/24 04:48
Plt Count 395 10^3/uL (130-400) 01/29/24 04:48
PT 20.8 Sec (11.4-14.6) H 01/28/24 08:28
INR 1.81 01/28/24 08:28
APTT 48.0 Sec (23.4-35.0) H 01/28/24 08:28
eGFR 34.70 01/29/24 04:48
Physical Exam
General: No Apparent Distress
HEENT: Moist Mucous Membranes; Negative Jaundice
Cardiology: S1 and S2
Pulmonary: Clear
GI: Soft
Extremities: Pulses Present; Negative Edema
Neurology: Non Focal
Skin: Warm
Psych: Calm
Review of Systems
Review of Systems
ROS notable for subjective, otherwise negative
Orders
Orders
Orders From Last 24 Hours
01/29/24 04:48
B12 [Vitamin B12] IN AM
Folate IN AM
01/29/24 14:00
Ferric Gluconate [Ferrlecit] 125 mg 0.9% Sodium Chloride 100 ml [Nss] 100 ml IV DAILY@1400
--- NOTE | 2024-01-29 11:06 | W.PN.HOSP.TC ---
Addendum entered and electronically signed by Gumaro Ojeda MD 01/29/24 15:33:
#UTI
with no urine symptoms however concerned for persistent leukocytosis
UCx
Ceftriaxone
Original Note:
Today's Communication/Plan
-
pending EGD
Cardio consult
Assessment / Plan
Assessment / Plan
68yo F with PMHx of CAD s/p PCI, afib on ELiquis, PUD s/p EGD with Hx of GIB, HLD, anxiety, HTN, overactive bladder, HFrEF, polycytemia vera, GERD, barrets esophagus, Hx of bladdrer CA, Hx of lung CA s/p b/l lobectomies, PAD, chronic leukocytosis
came after started to feel SOB, found severe anemia
A/P:
#Acute blood loss anemia, symptomatic 2/2 GIB
#JOSSELYN
PPI drip
GI consult: for EGD and push enteroscopy
Hold Plavix and Eliquis (last dose of Eliquis in the evening prior to admisison)
NPO with sips until MN, then strict NPO for possible EGD
two large bore IV, transfuse to keep Hgb>8, serial H&H
Iron IV
Weekly CBC upon d/c
#Afib, paroxysmal
#CAD, stable s/p PCI
hold eliquis and Plavix, restart when Ok with GI, possibly will need eval for watchman. ALready followed by [facility]
ttelemetry
cont rate/rhythm control
#Essential HTN
hold antihypertensives to avouid hypotension with significant anemia
#recent nausea/vomiting/abd pain
symptom-free at the time of admission
monitor
#Chronic leukocytosis
#Thrombocytosis, recurrent
#Polycytemia vera
#JAK2 positive MPN
follow CBC
has scheduled appt as per hematology
#MICHAEL on CKD stage 3a-b
Improving after blood transfusion
Baseline Cr 1.4
2/2 anemia
follow Cr after transfusion
#Indirect bilirubinemia
#Recurrent transaminitis
Hepatitis profile
follow LFT
#Hx of lung CA
chest XR
#Chronic HFrEF
#Overactive bladder
#HLD
#Anxiety d/o
cont home meds, watch for fluid overload
#HS of bladder CA
#Hx of lung CA
follow up with [facility] and previously scheduled
DVT ppx SCDs
Full code
I have spent at least 58min reviewing chart, test results, communication with consultants and direct patient care
Anticipated Discharge: 24 - 48 hours
Subjective/Interval History
-
Date of Service: January 29, 2024
Objective Data
-
Labs:
Laboratory Results
01/29/24 01/29/24 01/29/24
04:48 04:48 04:48
WBC 18.0 H
Hgb Cancelled 9.1 L D
Hct Cancelled 28.0 L
Plt Count 395
Sodium 137
Potassium 4.2
Chloride 101
Carbon Dioxide 22
BUN 26 H
Creatinine 1.6 H
Glucose 91
Calcium 8.4
Total Bilirubin 2.1 H
AST 35
ALT 24
Alkaline Phosphatase 84
01/29/24 01/29/24
12:21 20:21
WBC
Hgb Pending Pending
Hct Pending Pending
Plt Count
Sodium
Potassium
Chloride
Carbon Dioxide
BUN
Creatinine
Glucose
Calcium
Total Bilirubin
AST
ALT
Alkaline Phosphatase
Vital Signs:
Vital Signs
Temp Pulse Resp BP Pulse Ox
97.8 F 75 18 116/56 100
01/29/24 07:09 01/29/24 08:30 01/29/24 07:09 01/29/24 08:30 01/29/24 08:22
I&O
01/28/24 01/29/24 01/30/24
06:59 06:59 06:59
Intake Total 1730 / 1730
Output Total 400 / 400
Balance 1330 / 1330
Review of Systems
-
History Source: Patient
All other systems: Reviewed and negative
Physical Exam
-
General: No Apparent Distress
HEENT: Normocephalic
Respiratory: Clear to Auscultation
Cardiac: Regular Rhythm
GI: Soft, Nontender and Nondistended
Musculoskeletal: No Clubbing, No Cyanosis and No Edema
Skin: Warm
Neuro: Awake, Alert, Oriented and AO x 3
Psych: Calm
--- NOTE | 2024-01-29 13:14 | PTCARENOTE ---
Pt returned from GI lab/PACU s/p EGD via stretcher, accompanied by volunteer. Pt AAO x3, NEAL well, ambulatory to bed with minimal assistance; no c/o weakness/dizziness. VSS. On room air- pulseox 97%, no SOB noted. Abd soft, sl rounded, no c/o
abd discomfort; to start clear liquid diet. Pt DTV post-procedure. Afebrile; skin W/D/I. Iv Protonix drip infusing @ 8 mg/hr (10 ml/hr) via Rt forearm site without sx of infiltration. pt aware of colonoscopy prep to start this evening; NPO past
midnight 01/28. Will continue to monitor.
[2024-01-29] MEDS: FLUSH (NSS) 1 FLUSH IV ×3 (13:56→21:19)
[2024-01-29] MEDS: FERRLECIT 110 MG IV (13:56)
[2024-01-29 14:29] LABS: Hemoglobin 7.1 g/dL (12.0-16.0)
--- NOTE | 2024-01-29 14:41 | PTCARENOTE ---
Repeat Hgb drawn0 7.1; and Emma ROJAS notified. Pt for repeat Hgb @ 20:00. Will continue to monitor.
--- NOTE | 2024-01-29 14:56 | CON.CAR ---
Addendum entered and electronically signed by Ct Henry MD 01/29/24 16:10:
I saw and examined the patient.
The Icu Manager's note was reviewed and I agree with the note.
Comment: Briefly patient is a 68-year-old female with prior cochlear implants in 2017, carotid artery disease, lung cancer with bilateral lobectomies, bladder cancer status post bladder tumor resection for ongoing hematuria in July 2022, coronary
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
atrial fibrillation on chronic anticoagulation with Eliquis, chronic anemia due to iron deficiency and recurrent GI bleeds with most recent admission in November 2023 thought to be secondary to angiodysplastic lesions with stigmata of recent bleeding in
the duodenum based on EGD who now presents with acute blood loss anemia from a GI source with hemoglobin as low as 4.9 on admission. Her Eliquis and Plavix are currently on hold after they were resumed post last admission. Most recently her
hemoglobin is up to the sevens while anticoagulation is on hold and she is due for colonoscopy tomorrow after EGD was unrevealing of a potential source.
Lab work and vital signs reviewed. On exam patient is well-appearing in no acute distress, awake and alert, oriented x 3, regular rate, normal S1 and S2, 2 out of 6 holosystolic murmur over the apex, lungs are clear to auscultation bilaterally,
abdomen is soft, nontender, nondistended with active bowel sounds, warm extremities.
Recommendations:
1. Would continue daily baby aspirin if okay from a GI standpoint given prior cardiac stents. Okay to hold Plavix and Eliquis in the interim.
2. She will be considered for a left atrial appendage closure device with a watchman in the future when she is able to tolerate short-term anticoagulation post watchman placement to allow her to come off long-term anticoagulation given she is high
risk for thromboembolic events due to atrial fibrillation.
3. Complete workup from a GI standpoint for her current GI bleeding event with continued supportive care from a cardiac standpoint.
Ct Henry MD, [facility], [facility]
Original Note:
Consultation
Consultation Request
Date/Time Consultation Performed: 01/29/24
Requesting Provider: Dr. Ojeda
Performing Provider: Shanelle Ortiz PA-C for Dr. Gonzalez
Reason for Consultation: recurrent GIB on OAC
Medical History
-
Chief Complaint: fatigue, LIRA
History of Present Illness:
Patient is a 68-year-old female with past medical history of ischemic cardiomyopathy, recovered by most recent echo at 50% 09/2023, CAD with prior circumflex stent in 2010, mid LAD stent 2022, and felt to have Takotsubo cardiomyopathy in the setting
of a close friend's passing 07/2023. She also has paroxysmal atrial fibrillation and has been on Plavix and Eliquis. She had admission to 11/2023 for GI bleeding and was found by EGD to have 4 angiodysplastic lesions with stigmata of recent
bleeding in duodenum. She was placed back on Eliquis and Plavix. She reports about 2 weeks ago she had started having some generalized fatigue. She states then about a week ago she got a stomach virus and had vomiting and diarrhea. Since then
she reports progressive fatigue, she shortness of breath with exertion, lightheadedness. She reports she has had chronic dark stool due to being on iron supplementation. She presented to [facility] and was noted to have hemoglobin of 4.9.
Underwent EGD today without clear source of bleeding. Cardiology consulted for evaluation.
PMH:
CAD
Circumflex stent 2010
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
s/p 3.0 mm Ino FAHAD to mid LAD 11/05/22
Takotsubo CM 07/2023
Recovered ischemic cardiomyopathy with EF 50% by echo 09/2023
Mod to severe MR by echo 09/2023
Paroxysmal AF
Chronic Eliquis OAC
Anemia
Resection of bladder tumor 07/16/22
History of hematuria 06/2022
History of lung cancer with bilateral lobectomies - L lobectomy 06/2011, RUL 05/2026
Carotid stenosis
Cochlear implants 2016
History of GI bleeding 06/2022, 11/2023 (angiodysplastic lesions with stigmata of recent bleeding in duodenum by EGD)
Past Medical History
Past Medical History: Other (in HPI)
Past Surgical History: Other (in HPI)
Social History
Tobacco: Former Smoker
Alcohol: None
Family History
Family History: CAD and Cancer
Allergies / Home Medications
Allergy/AdvReac Type Severity Reaction Status Date / Time
pollen extracts Allergy runny Verified 01/28/24 08:19
nose,itchy
eyes
�Medication �Instructions �Recorded �Confirmed �Type
atorvastatin 80 mg tablet (Lipitor) 80 mg PO HS High cholesterol 04/07/22 01/28/24 History
ezetimibe 10 mg tablet (Zetia) 10 mg PO HS High cholesterol 04/07/22 01/28/24 History
fluoxetine 20 mg capsule (Prozac) 20 mg PO HS Mental Health/Anxiety 04/07/22 01/28/24 History
lisinopril 5 mg tablet 5 mg PO DAILY Blood Pressure 12/28/22 01/28/24 History
empagliflozin 10 mg tablet 10 mg PO DAILY 'heart protection' 02/18/23 01/28/24 History
(Jardiance)
apixaban 5 mg tablet (Eliquis) 5 mg PO BID Blood Clot 07/22/23 01/28/24 History
Prevention/Tx
furosemide 20 mg tablet 20 mg PO DAILY Fluid 07/22/23 01/28/24 History
Retention/Swelling
amiodarone 200 mg tablet 200 mg PO DAILY Arrhythmia 09/21/23 01/28/24 History
ferrous sulfate 325 mg (65 mg 325 mg PO Q48H Supplement 12/08/23 01/28/24 History
iron) tablet
metoprolol succinate 25 mg 12.5 mg PO BID Blood Pressure 12/08/23 01/28/24 History
tablet,extended release 24 hr
pantoprazole 40 mg tablet,delayed 40 mg PO BID Gastrointestinal 12/09/23 01/28/24 Rx
release (Protonix) issue #60 tabs
acetaminophen 325 mg tablet 650 mg PO Q4HPRN PRN mild pain 01/28/24 01/28/24 History
(Tylenol)
ondansetron 4 mg disintegrating 4 mg PO Q6HPRN PRN nausea 01/28/24 01/28/24 History
tablet
vibegron 75 mg tablet (Gemtesa) 75 mg PO DAILY 01/28/24 01/28/24 History
Review of Systems
-
History Source: Patient
All other systems: Negative unless noted
Physical Exam
Vital Signs
Temp Pulse Resp BP Pulse Ox
98 F 73 20 107/60 98
01/29/24 14:00 01/29/24 14:00 01/29/24 14:00 01/29/24 14:00 01/29/24 14:00
Lab Results
01/29/24 04:48
Troponin I < 0.012 ng/ml 01/28/24 08:28
Qqi-O-Qrkmlvomkcl Pept 7870 pg/ml 01/29/24 04:48
Physical Exam
General: No Apparent Distress and Comfortable
HEENT: Normocephalic, Anicteric and Moist Mucous Membranes
Respiratory: Clear and Non Labored Respirations
Cardiac: S1/S2 and Regular Rhythm
GI: Soft, Non Tender, Non Distended and Normal Bowel Sounds
Musculoskeletal: No Clubbing, No Cyanosis and No Edema
Skin: Warm and Dry
Neuro: AO x 3
Impression / Plan
-
PCP: Dr. Kwon
Cardiology: Dr. Rika
Impression:
Presentation with fatigue/LIRA
Acute on chronic anemia
Suspected GI bleeding, recurrent
History of GI bleeding 06/2022, 11/2023 (angiodysplastic lesions with stigmata of recent bleeding in duodenum by EGD)
CAD
Circumflex stent 2010
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
s/p 3.0 mm Ino FAHAD to mid LAD 11/05/22
Takotsubo CM 07/2023
Recovered ischemic cardiomyopathy with EF 50% by echo 09/2023
Mod to severe MR by echo 09/2023
Paroxysmal AF
Chronic Eliquis OAC
Resection of bladder tumor 07/16/22
History of hematuria 06/2022
History of lung cancer with bilateral lobectomies - L lobectomy 06/2011, RUL 05/2026
Carotid stenosis
Cochlear implants 2016
Echo 02/27/21: LV: Normal size and function.� EF 50-55%.� Possible basal inferior HK.� RV: Normal, LA: Severely dilated, RA: Normal, MV: Moderate MR, AV: Sclerotic.� Trace AI.� TV: Mild TR with PAP 25 mmHg
Echo 07/07/22: LV: EF 35%.� Global HK with severe HK to akinesis of the basal and mid inferior and inferolateral segments.� Severe HK of the basal and mid anterior and anteroseptal.� Stage II diastolic dysfunction.� RV: Mildly dilated, LA: Severely
dilated, RA: Mildly dilated, MV: Mild to moderate eccentric MR, AV: Trace AI.� TV: Mild TR with PAP 43
GEORGINA 07/10/22: LV: Mildly reduced EF estimated 45-50%.� RV: Dilated, LA: Dilated, RA: Dilated, GEORGI: No thrombus, MV: Prolapse of A3-P3 segments with moderate eccentric MR.� ERO 0.2 cm� and regurgitant volume 32 by PISA method.� AV: Trace AI, TV: Mild
TR with PAP 32 mmHg
Echo 03/20/23: EF 45%, hypokinesis basal to mid anteroseptal, basal to mid inferior and inferolateral black, stage I diastolic dysfunction, mod MR
Echo 07/22/23: Ejection fraction 30 to 35%, global hypokinesis with anteroseptal, basal inferior, and basal septal akinesis., Moderate to severe MR, mild TR PA systolic of 53 mmHg
Echo 09/12/2023: EF visually 50 to 55%, 49% by Goldstein's, stage II diastolic dysfunction, severe LA dilation, moderate to severe eccentric MR, mild AI, moderate TR, PAP 58 mmHg
Plan:
-She presents to [facility] with dyspnea on exertion, fatigue and is noted to have hemoglobin of 4.9
-This is her second GI bleeding admission in 2 months. She also had hematuria and hematochezia 06/2022.
-Eliquis and Plavix presently on hold for GI workup. Underwent EGD today without clear source. For colonoscopy in AM.
-While off Eliquis and Plavix, will place on aspirin 81 mg daily given prior stents
-Depending on colonoscopy findings, we will determine when able to resume OAC/antiplatelet. of note, she was on eliquis 5mg BID prior to admission. would favor placing patient on eliquis 2.5mg BID when able to resume given current renal function
>1.5 and weight <60kg
-Would consider watchman evaluation given recurrent bleeding events and high risk for rebleeding
-In sinus rhythm on review of telemetry. Continue amiodarone and low-dose Toprol
-EKG with new anterolateral T wave inversion compared to last EKG from 11/2023. repeat in AM
-She will need continued outpatient follow-up of mitral regurgitation, graded moderate to severe by echo 09/2023
HPI: Patient came to [facility] last night with increased SOB and cardiology is now consulted for acute HF. Patient was visiting a friend at the hospital when she started with increasing SOB and appeared to be in respiratory distress. Patient was
intubated and central line placed in ER. Patient briefly on Levophed, but drips weaned and patient extubated this morning. Per Diem Physical Therapist Assistant is following and there is concern for acute HF. pro-BNP was only 3110 on admission and has previously been as high
as 9280 during acute HF admissions. Initial Troponin was 0.348 and has trended up to 0.535. ECG with inferior and lateral ST changes in SR. Patient with complex PMH including left upper lobe resection for stage IA non-small cell lung cancer 06/2011
and right upper lobe VATS resection of a�stage I non-small cell lung cancer, coronary artery disease with unsuccessful PCI of a long segment CARE WORKER of the right coronary artery in 2010 and 3.0 x 12 mm Vision stent to the mid circumflex then LAD PCI
11/05/22, paroxysmal atrial fibrillation on Eliquis and bladder mass for which she underwent a resection for and continues to follow-up with urology along with iron deficiency anemia.Previously patient has had moderate to severe to severe MR, but by
GEORGINA 07/10/22 the MR was moderate.
Data Reviewed
-
EKG: Tracing Personally Visualized and interpreted
Medical Tests (Nuc Med, Echo etc): Report Reviewed by me
Labs: Labs Reviewed by me
Old Records: Reviewed
--- NOTE | 2024-01-29 15:16 | PTCARENOTE ---
Pt AAO x3, NEAL well, OOB to BR with minimal assistance; denies weakness/dizziness. VSS. Telemetry:NSR with first degree AVB. On room air- pulse ox 100%, no SOB noted. Abd soft, sl rounded, ki clear liquids; pt aware of bowel prep/NPO past
midnight for colonoscopy on 01/29. Voiding in BR without difficulty. Resting in bed at present; to receive 1 unit PRC's for Hgb 7.1 Will continue to monitor.
--- NOTE | 2024-01-29 15:35 | CM ---
CM met with Kyleigh at bedside to complete IA. She confirms prescription coverage, denies food, housing/utility and transportation insecurities.
She has had VN services in the past and was at [facility] for SNF after an orthpedic surgery.
Plan: Discharge to home with no anticipated needs. CM will continue to follow in the event need change during hospitalization.
.
PCP: Carlita Kwon
Pharmacy: [facility] in [place].
[2024-01-29] MEDS: NULYTELY SOLUTION 4 LITERS PO (15:48)
[2024-01-29] MEDS: LOW STRENGTH ASPIRIN 81 MG PO (15:48)
[2024-01-29] MEDS: STERILE WATER FOR INJECTION IV (15:48)
--- NOTE | 2024-01-29 17:51 | PTCARENOTE ---
[facility]' s unit #[id number] completed via Rt forearm site without sx of infiltration/adverse reaction. Pt ki well. VSS. Pt for Hgb @ 20:00. Will continue to monitor.
[2024-01-29] MEDS: STERILE WATER FOR INJECTION 10 ML IV (18:01)
[2024-01-29] MEDS: ROCEPHIN 1000 MG IV (18:01)
[2024-01-29 20:41] LABS: Hematocrit 26.4 % (37.0-47.0); Hemoglobin 8.7 g/dL (12.0-16.0)
[2024-01-29] MEDS: PROTONIX 40 MG PO (20:44)
[2024-01-29] MEDS: LIPITOR 80 MG PO (21:16)
[2024-01-29] MEDS: ZETIA 10 MG PO (21:16)
[2024-01-29] MEDS: PROZAC 20 MG PO (21:16)
[2024-01-29] MEDS: ZOFRAN 4 MG IV (21:19)
--- NOTE | 2024-01-29 21:37 | PTCARENOTE ---
Patient scheduled for colonoscopy in AM. Pt vomited X1. Medicated with IV zofran. See MAR. Patient drank 1/2 of Nulytely prep. Patient states she will not be able to finish the prep at this time. No bowel movement yet. Dr. Benjamin notifed via TT. No
new orders at this time. Plan of care ongoing.
[2024-01-30] MEDS: MELATONIN PO (00:17)
[2024-01-30 03:35] VITALS: BP 110/51
[2024-01-30 06:00] VITALS: BMI 20.1
[2024-01-30 06:54] LABS: % Basophils 0.5 % (0-2); % Eosinophils 0.3 % (0-6); % Immature Granulocytes 4.6 % (0-0.5); % Lymphocytes 6.7 % (20.5-51.1); % Monocytes 5.9 % (1.7-9.3); Absolute Basophils 0.1 10^3/uL (0-0.2); Absolute Immature Granulocytes 0.6 10^3/uL (0-0.05); Absolute Lymphocytes 0.8 10^3/uL (1.2-3.4); Absolute Monocytes 0.7 10^3/uL (0.1-0.6); Absolute Neutrophils 9.9 10^3/uL (1.4-6.5); Hematocrit 26.4 % (37.0-47.0); Hemoglobin 8.7 g/dL (12.0-16.0); Mean Corpuscular Hgb 26.1 pg (27.0-31.0); Mean Corpuscular Volume 79.3 fL (81.0-99.0); Mean Platelet Volume 10.3 fL (7.4-10.4); Nucleated Red Blood Cells % 1.5 %; Platelet Count 310 10^3/uL (130-400); Red Blood Cell Count 3.33 10^6/uL (4.20-5.40); White Blood Cell Count 12.1 10^3/uL (4.8-10.8)
[2024-01-30 07:30] VITALS: BP 106/56
[2024-01-30 07:41] LABS: ALT (SGPT) 21 U/L (0-35); AST (SGOT) 29 U/L (14-36); Albumin 2.7 g/dl (3.5-5.0); Alkaline Phosphatase 77 U/L (38-126); Blood Urea Nitrogen 15 mg/dl (7-17); Carbon Dioxide 22 mmol/L (22-30); Chloride 104 mmol/L (98-107); Estimated Creatinine Clearance 38 ml/min; Glucose 77 mg/dl (70-99); LDH 607 U/L (120-246); Potassium 4.1 mmol/L (3.5-5.1); Sodium 136 mmol/L (135-145); Total Bilirubin 1.4 mg/dl (0.2-1.3); Total Protein 4.8 g/dl (6.3-8.2)
[2024-01-30] MEDS: PROTONIX 40 MG PO ×2 (08:19→20:49)
[2024-01-30] MEDS: PACERONE 200 MG PO (08:20)
[2024-01-30] MEDS: LOW STRENGTH ASPIRIN 81 MG PO (08:20)
[2024-01-30] MEDS: TOPROL XL 12.5 MG PO ×2 (08:20→20:49)
[2024-01-30] MEDS: FARXIGA 10 MG PO (08:20)
[2024-01-30] MEDS: DETROL LA 4 MG PO (08:20)
--- NOTE | 2024-01-30 08:31 | W.PN.ONC2 ---
Today's Communication / Plan
-
follow CBC, transfuse prn, continue IV iron
Impression
Impression
She has recurrent GI blood loss anemia, on DOAC for afib
Weight loss, unintentional over past 2 years
Blake 2 positive MPN -OP follow up with Dr. Tran scheduled February 2024
HFrEF
Bladder cancer -follow up with [facility] primary oncologist
Lung cancer -follow up with [facility] primary oncologist
Plan
Plan
DOAC on hold, support w/ transfusions, iron infusions
Further w/u per GI- EGD no etiology ABLA. Coloscopy planned to today
defer to GI/cardiology regarding risk/benefit of continued anticoagulation and antiplatelet.
OP follow up with Dr. Tran 02/19/2024 for continued management of MPN and JOSSELYN
Subjective/Objective
Chief Complaint
no new complaints
Subjective
afebrile, no hypoxia or hypotension
denies pain
clear brown bm with bowel prep
Vital Signs:
Vital Signs
Temp Pulse Resp BP Pulse Ox
98.8 F 73 16 106/56 99
01/30/24 07:30 01/30/24 07:30 01/30/24 07:30 01/30/24 07:30 01/30/24 07:30
Lab Results:
Laboratory Data
WBC 12.1 10^3/uL (4.8-10.8) H 01/30/24 06:32
Hgb 8.7 g/dL (12.0-16.0) L 01/30/24 06:32
Plt Count 310 10^3/uL (130-400) D 01/30/24 06:32
PT 20.8 Sec (11.4-14.6) H 01/28/24 08:28
INR 1.81 01/28/24 08:28
APTT 48.0 Sec (23.4-35.0) H 01/28/24 08:28
eGFR 49.00 01/30/24 06:32
Physical Exam
General: No Apparent Distress
HEENT: Moist Mucous Membranes; Negative Jaundice
Cardiology: S1 and S2
Pulmonary: Clear
GI: Soft
Extremities: Pulses Present; Negative Edema
Neurology: Non Focal
Skin: Warm
Psych: Calm
Review of Systems
Review of Systems
ROS notable for subjective otherwise negative
Orders
Orders
Orders From Last 24 Hours
01/29/24 14:00
Ferric Gluconate [Ferrlecit] 125 mg 0.9% Sodium Chloride 100 ml [Nss] 100 ml IV DAILY@1400
[2024-01-30] MEDS: ZOFRAN 4 MG IV (08:56)
--- NOTE | 2024-01-30 10:19 | W.PN.HOSP.TC ---
Today's Communication/Plan
-
Ceftriaxone
Lisinopril 2.5mg
Assessment / Plan
Assessment / Plan
68yo F with PMHx of CAD s/p PCI, afib on ELiquis, PUD s/p EGD with Hx of GIB, HLD, anxiety, HTN, overactive bladder, HFrEF, polycytemia vera, GERD, barrets esophagus, Hx of bladdrer CA, Hx of lung CA s/p b/l lobectomies, PAD, chronic leukocytosis
came after started to feel SOB, found severe anemia
A/P:
#Acute blood loss anemia, symptomatic 2/2 GIB
#JOSSELYN
PPI drip
GI consult: for EGD and push enteroscopy and colonoscopy
Hold Plavix and Eliquis (last dose of Eliquis in the evening prior to admisison)
No bleeding source on EGD on 01/29/24
Colonoscopy planned
two large bore IV, transfuse to keep Hgb>8, serial H&H
Iron IV
Weekly CBC upon d/c
#UTI
Ceftriaxone pending Ucx
US renal/bladder
#Afib, paroxysmal
#CAD, stable s/p PCI
hold Eliquis, restart when Ok with GI, possibly will need eval for watchman. Already followed by [facility]
Previously Plavix was stopped last September as per patient. Cardiology started ASA
telemetry
cont rate/rhythm control
#Essential HTN
hold antihypertensives to avoid hypotension with significant anemia - BP well controlled off meds.
STart BB and lower dose ACEi with Hx of CAD
#recent nausea/vomiting/abd pain
symptom-free at the time of admission
monitor
#Chronic leukocytosis
#Thrombocytosis, recurrent
#Polycytemia vera
#JAK2 positive MPN
follow CBC
has scheduled appt as per hematology in Feb
#MICHAEL on CKD stage 3a-b
Resolved after blood transfusion
Baseline Cr 1.4
2/2 anemia
follow Cr after transfusion
#Indirect bilirubinemia
#Recurrent transaminitis
Hepatitis profile
follow LFT
#Hx of lung CA
chest XR
#Chronic HFrEF
#Overactive bladder
#HLD
#Anxiety d/o
cont home meds, watch for fluid overload
#HS of bladder CA
#Hx of lung CA
follow up with [facility] and previously scheduled
DVT ppx SCDs
Full code
I have spent at least 58min reviewing chart, test results, communication with consultants and direct patient care
Anticipated Discharge: > 48 hours
Subjective/Interval History
-
Date of Service: January 30, 2024
Objective Data
-
Labs:
Laboratory Results
01/30/24
06:32
WBC 12.1 H
Hgb 8.7 L
Hct 26.4 L
Plt Count 310 D
Sodium 136
Potassium 4.1
Chloride 104
Carbon Dioxide 22
BUN 15
Creatinine 1.2 H
Glucose 77
Calcium 8.0 L
Total Bilirubin 1.4 H
AST 29
ALT 21
Alkaline Phosphatase 77
Vital Signs:
Vital Signs
Temp Pulse Resp BP Pulse Ox
98.8 F 73 16 106/56 99
01/30/24 07:30 01/30/24 07:30 01/30/24 07:30 01/30/24 07:30 01/30/24 07:30
I&O
01/29/24 01/30/24 01/31/24
06:59 06:59 06:59
Intake Total 1730 / 1730 1380 / 1380
Output Total 400 / 400
Balance 1330 / 1330 1380 / 1380
--- NOTE | 2024-01-30 11:09 | PTCARENOTE ---
Patient finished four more large cups of golytely this morning. Stopped prep at 1000am. Patient had one loose BM. Patient states it was 'brownish' and 'some clear'.
[2024-01-30 11:10] VITALS: BP 130/75
--- NOTE | 2024-01-30 12:01 | W.PN.CARDCBS ---
Addendum entered and electronically signed by Dequan Bennett MD 01/30/24 17:48:
I saw and examined the patient.
The Smt Machine Operator's note was reviewed and I agree with the note.
Comment: Briefly, 68-year-old woman past medical history of CAD status post PCI in 2022 and paroxysmal atrial fibrillation who presents with dyspnea and fatigue and was found to have symptomatic anemia
GI workup ongoing
Oral anticoagulation is currently on hold, on [id number] daily only for h/o coronary stents
Would consider resuming Eliquis at a lower dose, 2.5 mg twice daily when safe from GI standpoint, and discontinuing ASA
Ultimately may benefit from Watchman procedure given history of A-fib and high bleeding risk
Original Note:
Today's Communication / Plan
-
colonoscopy today
resume eliquis at lower dose of 2.5mg BID when ok per GI - stop asa when eliquis resumed
eventual watchman eval
follow MR as OP
Impression / Plan
-
PCP: Dr. Kwon
Cardiology: Dr. Meléndez
Impression:
Presentation with fatigue/LIRA
Acute on chronic anemia
Suspected GI bleeding, recurrent
History of GI bleeding 06/2022, 11/2023 (angiodysplastic lesions with stigmata of recent bleeding in duodenum by EGD)
CAD
Circumflex stent 2010
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
s/p 3.0 mm Ino FAHAD to mid LAD 11/05/22
Takotsubo CM 07/2023
Recovered ischemic cardiomyopathy with EF 50% by echo 09/2023
Mod to severe MR by echo 09/2023
Paroxysmal AF
Chronic Eliquis OAC
Resection of bladder tumor 07/16/22
History of hematuria 06/2022
History of lung cancer with bilateral lobectomies - L lobectomy 06/2011, RUL 05/2026
Carotid stenosis
Cochlear implants 2016
Echo 02/27/21: LV: Normal size and function.� EF 50-55%.� Possible basal inferior HK.� RV: Normal, LA: Severely dilated, RA: Normal, MV: Moderate MR, AV: Sclerotic.� Trace AI.� TV: Mild TR with PAP 25 mmHg
Echo 07/07/22: LV: EF 35%.� Global HK with severe HK to akinesis of the basal and mid inferior and inferolateral segments.� Severe HK of the basal and mid anterior and anteroseptal.� Stage II diastolic dysfunction.� RV: Mildly dilated, LA: Severely
dilated, RA: Mildly dilated, MV: Mild to moderate eccentric MR, AV: Trace AI.� TV: Mild TR with PAP 43
GEORGINA 07/10/22: LV: Mildly reduced EF estimated 45-50%.� RV: Dilated, LA: Dilated, RA: Dilated, GEORGI: No thrombus, MV: Prolapse of A3-P3 segments with moderate eccentric MR.� ERO 0.2 cm� and regurgitant volume 32 by PISA method.� AV: Trace AI, TV: Mild
TR with PAP 32 mmHg
Echo 03/20/23: EF 45%, hypokinesis basal to mid anteroseptal, basal to mid inferior and inferolateral black, stage I diastolic dysfunction, mod MR
Echo 07/22/23: Ejection fraction 30 to 35%, global hypokinesis with anteroseptal, basal inferior, and basal septal akinesis., Moderate to severe MR, mild TR PA systolic of 53 mmHg
Echo 09/12/2023: EF visually 50 to 55%, 49% by Goldstein's, stage II diastolic dysfunction, severe LA dilation, moderate to severe eccentric MR, mild AI, moderate TR, PAP 58 mmHg
Plan:
-She presents to [facility] with dyspnea on exertion, fatigue and is noted to have hemoglobin of 4.9
-This is her second GI bleeding admission in 2 months. She also had hematuria and hematochezia 06/2022.
-Eliquis and Plavix presently on hold for GI workup. Underwent EGD 01/28 without clear source. For colonoscopy today
-While off Eliquis and Plavix, continue aspirin 81 mg daily given prior stents
-Depending on colonoscopy findings, we will determine when able to resume OAC/antiplatelet. of note, she was on eliquis 5mg BID prior to admission. would favor placing patient on eliquis 2.5mg BID when able to resume given fluctuating renal function
and weight <60kg
-Would consider watchman evaluation given recurrent bleeding events and high risk for rebleeding
-In sinus rhythm with occasional PVCs on review of telemetry. Continue amiodarone and low-dose Toprol
-EKG 01/27 with new anterolateral T wave inversion compared to last EKG from 11/2023. repeat today
-She will need continued outpatient follow-up of mitral regurgitation, graded moderate to severe by echo 09/2023
HPI: Patient came to [facility] last night with increased SOB and cardiology is now consulted for acute HF. Patient was visiting a friend at the hospital when she started with increasing SOB and appeared to be in respiratory distress. Patient was
intubated and central line placed in ER. Patient briefly on Levophed, but drips weaned and patient extubated this morning. Facial Operator is following and there is concern for acute HF. pro-BNP was only 3110 on admission and has previously been as high
as 9280 during acute HF admissions. Initial Troponin was 0.348 and has trended up to 0.535. ECG with inferior and lateral ST changes in SR. Patient with complex PMH including left upper lobe resection for stage IA non-small cell lung cancer 06/2011
and right upper lobe VATS resection of a�stage I non-small cell lung cancer, coronary artery disease with unsuccessful PCI of a long segment TUFTING MACHINE OPERATOR of the right coronary artery in 2010 and 3.0 x 12 mm Vision stent to the mid circumflex then LAD PCI
11/05/22, paroxysmal atrial fibrillation on Eliquis and bladder mass for which she underwent a resection for and continues to follow-up with urology along with iron deficiency anemia.Previously patient has had moderate to severe to severe MR, but by
GEORGINA 07/10/22 the MR was moderate.
Progress Note - Slipper Maker
Subjective
Date of Service: January 30, 2024
for colonoscopy today.
Objective
Labs:
01/30/24 06:32
01/30/24 06:32
Labs
Hgb 8.7 g/dL (12.0-16.0) L 01/30/24 06:32
Hct 26.4 % (37.0-47.0) L 01/30/24 06:32
Plt Count 310 10^3/uL (130-400) D 01/30/24 06:32
PT 20.8 Sec (11.4-14.6) H 01/28/24 08:28
INR 1.81 01/28/24 08:28
APTT 48.0 Sec (23.4-35.0) H 01/28/24 08:28
Sodium 136 mmol/L (135-145) 01/30/24 06:32
Potassium 4.1 mmol/L (3.5-5.1) 01/30/24 06:32
BUN 15 mg/dl (7-17) 01/30/24 06:32
Creatinine 1.2 mg/dL (0.6-1.0) H 01/30/24 06:32
Glucose 77 mg/dl (70-99) 01/30/24 06:32
Troponins
01/28/24
08:28
Troponin I < 0.012
Vital Signs and I&O:
Vital Signs
Temp Pulse Resp BP Pulse Ox
97.5 F 65 16 130/75 100
01/30/24 11:10 01/30/24 11:10 01/30/24 11:10 01/30/24 11:10 01/30/24 11:10
Vital Signs
Temp Pulse Resp BP Pulse Ox
97.5 F 65 16 130/75 100
01/30/24 11:10 01/30/24 11:10 01/30/24 11:10 01/30/24 11:10 01/30/24 11:10
Intake & Output
01/28/24 01/29/24 01/30/24 01/31/24
07:59 07:59 07:59 07:59
Intake Total 1730 / 1730 1380 / 1380
Output Total 400 / 400
Balance 1330 / 1330 1380 / 1380
Physical Exam
Physical Exam
GEN: No distress, awake, alert, oriented x3
HEENT: supple, anicteric, mmm, eomi
LUNGS: CTA B/L, no wheezes/rales
CV: Reg, S1/S2, 2/6 syst LSB
ABD: soft, BS+, NT/ND
EXT: No cyanosis, clubbing, edema
NEURO: Gross non-focal
SKIN: Warm, pink, dry. No rash
[2024-01-30] MEDS: FEOSOL PO (12:25)
--- NOTE | 2024-01-30 12:35 | CM ---
CM continues to follow for discharge needs. Kyleigh is scheduled for a colonoscopy today.
Anticipate discharge to home with her step daughter with whom she lives.
Plan: Discharge to home with no needs identified at this time. CM will continue to follow.
PCP: Carlita Kwon
Pharmacy: [facility]
--- NOTE | 2024-01-30 13:55 | W.PN.GI.CBS2 ---
Today's Communication / Plan
-
- clears, mag citrate this evening and colonoscopy tomorrow
Assessment / Plan
-
Pt is a 68yo presents with hx atrial fibrillation on Eliquis, history of lung cancer with bilateral upper lobe lobectomies, bladder cancer with bladder resection, CAD with cardiac stents previously on Plavix, olson's esophagus, hypertension,
GERD, CKD, admission for pneumonia in September. She completed GI work up in July 2022 as noted with anemia. At that time she endoscopy with Dr. Boyer, which showed Olson's esophagus, a medium size hiatal hernia, and focal intestinal metaplasia
of the stomach. Colonoscopy at that time showed diverticulosis, 2 small adenomatous polyps from the ascending colon and 1 adenomatous polyp from the sigmoid colon. Polyp post polypectomy scar showing hyperplastic changes. She also completed
capsule with normal finding with capsule not reaching cecum. Overall there were no findings to explain her anemia. with then admitted in November with hbg down to 6.1. She completed EGD with enteroscopy to 2nd portion duodenum with 5 cm HH,
erythema in antrum, 4 non recently bleeding angiodysplastic lesion treated with monopolar probe. Pt received 3 units PRBC's in November. Hgb after admission on 12/15 was 9.1. She was due for GI follow up today but due to fatigue presents to ER and
noted hbg 4.9 on admission. She admits to recent nausea/vomiting/diarrhea over last week. She was noted with dark stools but reports chronic black stool with iron use.
-symptomatic acute on chronic iron deficiency anemia
-hx duodenal angiodysplastic lesions
-CKD
-afib on Eliquis prior to admission
-CAD with stents on chronic Plavix prior to admission
-hx colon polyps
-40 + lb wt loss
other medical problems:
-lung CA with resection
-bladder CA s/p TURBT
-moderate to severe MR
-prior PNA
-HTN
-GERD
-olson's
-hx colon polyps
-CHF
-polycythemia vera
-
PLAN:
Etiology of anemia may be multi factorial with hx CKD, bladder and lung CA but noted with increase diarrhea with black heme + stool and concern for GI bleeding (recurrent AVM vs other )
EGD with enteroscopy unremarkable
cont Eliquis hold last dose 01/26
s/p 4U PRBCS (3 01/27 and 1 01/28) from 4.9--> 8.7 today
PPI
trend hbg
2 large bore IV's with GI bleeding
consider CT with Wt loss if creat allow
UA with bladder CA to exclude component of urologic loss - negative for blood
cardiology evaluation to discuss watchman as anemia issues started with initiation of Eliquis
More prep this evening with 1 bottle of mag citrate and colonoscopy tomorrow with Dr. Burks
ok for clears
Subjective
Subjective
Date of Service: January 30, 2024
patient with no bleeding. didn't tolerate prep last night and after drinking the remainder today, still with pieces of stool present
Objective
Data Reviewed
Laboratory Data:
Laboratory Results
01/30/24 06:32
01/30/24 06:32
Laboratory Results
PT 20.8 Sec (11.4-14.6) H 01/28/24 08:28
INR 1.81 01/28/24 08:28
APTT 48.0 Sec (23.4-35.0) H 01/28/24 08:28
Magnesium 2.0 mg/dl (1.6-2.3) 01/29/24 04:48
Total Bilirubin 1.4 mg/dl (0.2-1.3) H 01/30/24 06:32
AST 29 U/L (14-36) 01/30/24 06:32
ALT 21 U/L (0-35) 01/30/24 06:32
Alkaline Phosphatase 77 U/L (38-126) 01/30/24 06:32
Vital Signs and I&O:
Vital Signs
Temp Pulse Resp BP Pulse Ox
97.5 F 65 16 130/75 100
01/30/24 11:10 01/30/24 11:10 01/30/24 11:10 01/30/24 11:10 01/30/24 11:10
I&O
01/29/24 01/30/24 01/31/24
06:59 06:59 06:59
Intake Total 1730 / 1730 1380 / 1380
Output Total 400 / 400
Balance 1330 / 1330 1380 / 1380
Physical Exam
Physical Exam
HEENT: Anicteric
GI: Soft and Non Distended
Rectal: Other (yellow with pieces of stool)
Neuro: Non Focal
[2024-01-30] MEDS: FERRLECIT 110 MG IV (14:00)
[2024-01-30 14:23] LABS: Hepatitis B Surface Antibody Negative; Hepatitis C Antibody Negative (Negative)
[2024-01-30 15:30] VITALS: BP 120/62
[2024-01-30] MEDS: CITROMA 300 ML PO (15:35)
[2024-01-30] MEDS: ROCEPHIN 1000 MG IV (18:25)
[2024-01-30] MEDS: STERILE WATER FOR INJECTION 10 ML IV (18:26)
[2024-01-30 19:41] VITALS: BP 129/70
[2024-01-30] MEDS: MELATONIN 5 MG PO (22:10)
[2024-01-30] MEDS: ZETIA 10 MG PO (22:10)
[2024-01-30] MEDS: LIPITOR 80 MG PO (22:10)
[2024-01-30] MEDS: PROZAC 20 MG PO (22:10)
[2024-01-30 23:41] VITALS: BP 111/62
[2024-01-31] VITALS (8 sets, daily range): BP systolic 14–117; BP diastolic 53–62; BMI 20.2
[2024-01-31 07:23] LABS: Hematocrit 26.9 % (37.0-47.0); Hemoglobin 8.5 g/dL (12.0-16.0); Mean Corp Hgb Conc. 31.6 g/dL (33.0-37.0); Mean Corpuscular Hgb 25.4 pg (27.0-31.0); Mean Corpuscular Volume 80.5 fL (81.0-99.0); Mean Platelet Volume 10.3 fL (7.4-10.4); Platelet Count 312 10^3/uL (130-400); Red Blood Cell Count 3.34 10^6/uL (4.20-5.40); Red Cell Dist. Width 19.6 % (11.5-14.5)
[2024-01-31 08:08] LABS: ALT (SGPT) 21 U/L (0-35); AST (SGOT) 29 U/L (14-36); Albumin 2.6 g/dl (3.5-5.0); Alkaline Phosphatase 74 U/L (38-126); Blood Urea Nitrogen 10 mg/dl (7-17); Calcium 7.9 mg/dl (8.4-10.2); Carbon Dioxide 22 mmol/L (22-30); Chloride 105 mmol/L (98-107); Estimated Creatinine Clearance 38 ml/min; Glucose 74 mg/dl (70-99); Potassium 4.1 mmol/L (3.5-5.1); Sodium 139 mmol/L (135-145); Total Bilirubin 1.1 mg/dl (0.2-1.3); Total Protein 4.6 g/dl (6.3-8.2)
[2024-01-31] MEDS: FARXIGA 10 MG PO (08:26)
[2024-01-31] MEDS: TOPROL XL 12.5 MG PO (08:26)
[2024-01-31] MEDS: PROTONIX 40 MG PO (08:26)
[2024-01-31] MEDS: DETROL LA 4 MG PO (08:27)
[2024-01-31] MEDS: PACERONE 200 MG PO (08:27)
[2024-01-31] MEDS: LOW STRENGTH ASPIRIN 81 MG PO (08:27)
[2024-01-31] MEDS: ZESTRIL 2.5 MG PO (08:28)
--- NOTE | 2024-01-31 09:16 | W.PN.CARDCBS ---
Addendum entered and electronically signed by Breanne Smith DO 01/31/24 13:00:
I saw and examined the patient.
The Director Of Publications's note was reviewed and I agree with the note.
Comment: Patient seen and examined prior to planned colonoscopy. Offers no complaints of shortness of breath, chest pain or palpitations suggestive of recurrent arrhythmia.
GEN: No distress, awake, alert, oriented x3
HEENT: mmm
LUNGS: CTA B/L, no wheezes/rales
CV: Reg, S1/S2, 06/18 syst LSB
EXT: No edema
Plan: Presented with symptomatic anemia on Eliquis anticoagulation and a hemoglobin of 4.9 g/dL status post 4 units packed red blood cell transfusion and current hemoglobin 8.5 g/dL. Eliquis has been on hold since admission. Patient has a history
of coronary artery disease status post drug-eluting stent to the mid LAD in October 2022 and has completed 1 year of dual antiplatelet therapy. She was not on Plavix at time of GI bleed. She remains hemodynamically stable without cardiovascular
symptoms and may proceed with colonoscopy as planned. Please resume Eliquis at lower dose 2.5 mg twice daily once cleared by GI. Close monitoring of CBC once resumed anticoagulation. Would stop aspirin after starting Eliquis. Again patient was
not on Plavix at time of admission and no plan to resume. We discussed outpatient evaluation for watchman which will be arranged with Dr. Henry. Will sign off, recall if needed
Original Note:
Today's Communication / Plan
-
Colonoscopy today
Pending results of colonoscopy, would resume Eliquis at lower dose 2.5mg BID
Stop aspirin when starting Eliquis.
OP eval for watchman
Follow up arranged
Impression / Plan
-
PCP: Dr. Kwon
Cardiology: Dr. Meléndez
Impression:
Presentation with fatigue/LIRA
Acute on chronic anemia
Suspected GI bleeding, recurrent
History of GI bleeding 06/2022, 11/2023 (angiodysplastic lesions with stigmata of recent bleeding in duodenum by EGD)
CAD
Circumflex stent 2010
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
s/p 3.0 mm Ino FAHAD to mid LAD 11/05/22
Takotsubo CM 07/2023
Recovered ischemic cardiomyopathy with EF 50% by echo 09/2023
Mod to severe MR by echo 09/2023
Paroxysmal AF
Chronic Eliquis OAC
Resection of bladder tumor 07/16/22
History of hematuria 06/2022
History of lung cancer with bilateral lobectomies - L lobectomy 06/2011, RUL 05/2026
Carotid stenosis
Cochlear implants 2016
Echo 02/27/21: LV: Normal size and function.� EF 50-55%.� Possible basal inferior HK.� RV: Normal, LA: Severely dilated, RA: Normal, MV: Moderate MR, AV: Sclerotic.� Trace AI.� TV: Mild TR with PAP 25 mmHg
Echo 07/07/22: LV: EF 35%.� Global HK with severe HK to akinesis of the basal and mid inferior and inferolateral segments.� Severe HK of the basal and mid anterior and anteroseptal.� Stage II diastolic dysfunction.� RV: Mildly dilated, LA: Severely
dilated, RA: Mildly dilated, MV: Mild to moderate eccentric MR, AV: Trace AI.� TV: Mild TR with PAP 43
GEORGINA 07/10/22: LV: Mildly reduced EF estimated 45-50%.� RV: Dilated, LA: Dilated, RA: Dilated, GEORGI: No thrombus, MV: Prolapse of A3-P3 segments with moderate eccentric MR.� ERO 0.2 cm� and regurgitant volume 32 by PISA method.� AV: Trace AI, TV: Mild
TR with PAP 32 mmHg
Echo 03/20/23: EF 45%, hypokinesis basal to mid anteroseptal, basal to mid inferior and inferolateral black, stage I diastolic dysfunction, mod MR
Echo 07/22/23: Ejection fraction 30 to 35%, global hypokinesis with anteroseptal, basal inferior, and basal septal akinesis., Moderate to severe MR, mild TR PA systolic of 53 mmHg
Echo 09/12/2023: EF visually 50 to 55%, 49% by Goldstein's, stage II diastolic dysfunction, severe LA dilation, moderate to severe eccentric MR, mild AI, moderate TR, PAP 58 mmHg
Plan:
-Presented with LIRA and fatigue. Found to have Hgb 4.9. Admitted with GIB.
-Eliquis and plavix on hold while GI workup ongoing. EGD 01/28 without clear source. Colonoscopy today. Continue aspirin alone for now. Hgb stable overnight.
-Pending results of colonoscopy, would favor resuming Eliquis at lower dose 2.5 mg BID given fluctuating renal function and weight < 60 kg. Stop aspirin when starting Eliquis.
-This is hre second admission for GIB in the past 2 months. Also has h/o hematuria and hematochezia. Consider watchman eval as OP.
-In sinus rhythm with occasional PVCs on review of telemetry. Continue amiodarone and low-dose Toprol
-Echo 09/12/2023 with EF 50-55%. Moderate to severe MR noted. Follow up as OP.
-Follow up arranged.
HPI: Patient came to [facility] last night with increased SOB and cardiology is now consulted for acute HF. Patient was visiting a friend at the hospital when she started with increasing SOB and appeared to be in respiratory distress. Patient was
intubated and central line placed in ER. Patient briefly on Levophed, but drips weaned and patient extubated this morning. District Captain is following and there is concern for acute HF. pro-BNP was only 3110 on admission and has previously been as high
as 9280 during acute HF admissions. Initial Troponin was 0.348 and has trended up to 0.535. ECG with inferior and lateral ST changes in SR. Patient with complex PMH including left upper lobe resection for stage IA non-small cell lung cancer 06/2011
and right upper lobe VATS resection of a�stage I non-small cell lung cancer, coronary artery disease with unsuccessful PCI of a long segment MANAGER SUSTAINABILITY of the right coronary artery in 2010 and 3.0 x 12 mm Vision stent to the mid circumflex then LAD PCI
11/05/22, paroxysmal atrial fibrillation on Eliquis and bladder mass for which she underwent a resection for and continues to follow-up with urology along with iron deficiency anemia.Previously patient has had moderate to severe to severe MR, but by
GEORGINA 07/10/22 the MR was moderate.
Progress Note - Firer Watertender
Subjective
Date of Service: January 31, 2024
No issues overnight. Feeling well. It is her 69th birthday today.
Objective
Labs:
01/31/24 06:30
01/31/24 06:30
Labs
Hgb 8.5 g/dL (12.0-16.0) L 01/31/24 06:30
Hct 26.9 % (37.0-47.0) L 01/31/24 06:30
Plt Count 312 10^3/uL (130-400) 01/31/24 06:30
PT 20.8 Sec (11.4-14.6) H 01/28/24 08:28
INR 1.81 01/28/24 08:28
APTT 48.0 Sec (23.4-35.0) H 01/28/24 08:28
Sodium 139 mmol/L (135-145) 01/31/24 06:30
Potassium 4.1 mmol/L (3.5-5.1) 01/31/24 06:30
BUN 10 mg/dl (7-17) 01/31/24 06:30
Creatinine 1.2 mg/dL (0.6-1.0) H 01/31/24 06:30
Glucose 74 mg/dl (70-99) 01/31/24 06:30
Troponins
01/28/24
08:28
Troponin I < 0.012
Vital Signs and I&O:
Vital Signs
Temp Pulse Resp BP Pulse Ox
98.3 F 65 18 117/61 99
01/31/24 07:25 01/31/24 08:28 01/31/24 07:25 01/31/24 08:28 01/31/24 07:25
Vital Signs
Temp Pulse Resp BP Pulse Ox
98.3 F 65 18 117/61 99
01/31/24 07:25 01/31/24 08:28 01/31/24 07:25 01/31/24 08:28 01/31/24 07:25
Intake & Output
01/29/24 01/30/24 01/31/24 02/01/24
06:59 06:59 06:59 06:59
Intake Total 1730 / 1730 1380 / 1380 1560 / 1560
Output Total 400 / 400
Balance 1330 / 1330 1380 / 1380 1560 / 1560
Physical Exam
Physical Exam
GEN: No distress, awake, alert, oriented x3
HEENT: supple, anicteric, mmm, eomi
LUNGS: CTA B/L, no wheezes/rales
CV: Reg, S1/S2, 2/6 syst LSB
EXT: No cyanosis, clubbing, edema
NEURO: Gross non-focal
SKIN: Warm, pink, dry. No rash
--- NOTE | 2024-01-31 11:28 | W.PN.HOSP.TC ---
Today's Communication/Plan
-
colonoscopy
Might be able to d/c afterwards
need timimg for Eliquis start from GI
Assessment / Plan
Assessment / Plan
68yo F with PMHx of CAD s/p PCI, afib on ELiquis, PUD s/p EGD with Hx of GIB, HLD, anxiety, HTN, overactive bladder, HFrEF, polycytemia vera, GERD, barrets esophagus, Hx of bladdrer CA, Hx of lung CA s/p b/l lobectomies, PAD, chronic leukocytosis
came after started to feel SOB, found severe anemia, had EGD that showed no signs of bleeding. Weekly CBC with PCP advised. Director Global Market Research attributed anemia to GIB, advised to keep scheduled appt with Oncology in Feb for MPN.
As per cardiology - will schedule outpatient f/u for watchman, meanwhile restart Eliquis with lower dose, when ok by GI
Also c/o Unintentional weight loss over 1.5years - 60-70lbs - recommended to follow up with [facility], call to reschedule appointment sooner then May 2024, patient verbalized understanding.
A/P:
#Acute blood loss anemia, symptomatic 2/2 GIB
#JOSSELYN
PPI drip
GI consult: for EGD and push enteroscopy and colonoscopy
Hold Plavix and Eliquis (last dose of Eliquis in the evening prior to admission), as per cardio - restart Eliquis 2,5mg when ok with GI
No bleeding source on EGD on 01/29/24
Colonoscopy planned
two large bore IV, transfuse to keep Hgb>8, serial H&H
Iron IV
Weekly CBC upon d/c
#UTI
Ceftriaxone
Ucx- mixed ramon
reasonable 5 days empyric cefuroxime on d/c
US renal/bladder neg for nephrolithiasis or hydronephrosis
#Afib, paroxysmal
#CAD, stable s/p PCI
hold Eliquis, restart when Ok with GI, possibly will need eval for watchman. Already followed by [facility]
Previously Plavix was stopped last September as per patient. Cardiology started ASA
telemetry
cont rate/rhythm control
#Essential HTN
hold antihypertensives to avoid hypotension with significant anemia - BP well controlled off meds.
STart BB and lower dose ACEi with Hx of CAD
#recent nausea/vomiting/abd pain
symptom-free at the time of admission
monitor
#Chronic leukocytosis
#Thrombocytosis, recurrent
#Polycytemia vera
#JAK2 positive MPN
follow CBC
has scheduled appt as per hematology in Feb
#MICHAEL on CKD stage 3a-b
Resolved after blood transfusion
Baseline Cr 1.4
2/2 anemia
#Indirect bilirubinemia
#Recurrent transaminitis
Hepatitis profile
follow LFT
#Hx of lung CA
chest XR
#Chronic HFrEF
#Overactive bladder
#HLD
#Anxiety d/o
cont home meds, watch for fluid overload
#Unintentional weight loss over 1.5years - 60-70lbs
#HS of bladder CA
#Hx of lung CA
Might need repeated PET
follow up with [facility], call to reschedule appointment sooner then May 2024
DVT ppx SCDs
Full code
I have spent at least 58min reviewing chart, test results, communication with consultants and direct patient care
Anticipated Discharge: Within 24 hours
Subjective/Interval History
-
Date of Service: January 31, 2024
Objective Data
-
Labs:
Laboratory Results
01/31/24
06:30
WBC 11.0 H
Hgb 8.5 L
Hct 26.9 L
Plt Count 312
Sodium 139
Potassium 4.1
Chloride 105
Carbon Dioxide 22
BUN 10
Creatinine 1.2 H
Glucose 74
Calcium 7.9 L
Total Bilirubin 1.1
AST 29
ALT 21
Alkaline Phosphatase 74
Vital Signs:
Vital Signs
Temp Pulse Resp BP Pulse Ox
98.3 F 65 18 117/61 99
01/31/24 07:25 01/31/24 08:28 01/31/24 07:25 01/31/24 08:28 01/31/24 09:43
I&O
01/30/24 01/31/24 02/01/24
06:59 06:59 06:59
Intake Total 1380 / 1380 1560 / 1560
Balance 1380 / 1380 1560 / 1560
Review of Systems
-
History Source: Patient
All other systems: Reviewed and negative
Physical Exam
-
General: No Apparent Distress
HEENT: Normocephalic
Respiratory: Clear to Auscultation
Musculoskeletal: No Clubbing, No Cyanosis and No Edema
Skin: Warm
Neuro: Awake, Alert, Oriented and AO x 3
Psych: Calm
--- NOTE | 2024-01-31 15:42 | W.DCSUMMARY ---
Discharge Summary
Discharge Data
Date of Admission: 01/28/24
Date of Discharge: 01/31/24
-
Pending Results: No
Hospital Course
68yo F with PMHx of CAD s/p PCI, afib on ELiquis, PUD s/p EGD with Hx of GIB, HLD, anxiety, HTN, overactive bladder, HFrEF, polycytemia vera, GERD, barrets esophagus, Hx of bladdrer CA, Hx of lung CA s/p b/l lobectomies, PAD, chronic leukocytosis
came after started to feel SOB, found severe anemia, had EGD that showed no signs of bleeding. Colonoscopy with few polyps. Will need outpatient capsule endoscopy - GI to arrange. Weekly CBC with PCP advised. Manager Quality Improvement attributed anemia to GIB,
advised to keep scheduled appt with Oncology in Feb for MPN.
As per cardiology - will schedule outpatient f/u for watchman, meanwhile restart Eliquis with lower dose on 02/02/24 in the evening, as discussed with GI
Also c/o Unintentional weight loss over 1.5years - 60-70lbs - recommended to follow up with [facility], call to reschedule appointment sooner then May 2024, patient verbalized understanding.
I have spent at least 38min discharging the patient
Patient was managed for:
#Acute blood loss anemia, symptomatic 2/2 GIB
#JOSSELYN
#UTI
#Afib, paroxysmal
#CAD, stable s/p PCI
#Essential HTN
#recent nausea/vomiting/abd pain
#Chronic leukocytosis
#Thrombocytosis, recurrent
#Polycytemia vera
#JAK2 positive MPN
#MICHAEL on CKD stage 3a-b
#Indirect bilirubinemia
#Recurrent transaminitis - neg hepatitis panel
#Chronic HFrEF
#Overactive bladder
#HLD
#Anxiety d/o
#Unintentional weight loss over 1.5years - 60-70lbs
#HS of bladder CA
#Hx of lung CA - chest XR without acute findings
Discharge Plan
-
Patient Disposition: Home (Routine Discharge)
Discharge Diagnosis/Procedures: GIB
Diet: Low Cholesterol
Activity: As tolerated
Driving Restrictions: As prior to admission
Blood Work: Weekly hemoglobin with family doctor
Referrals:
Carlita Kwon MD [Family Provider] -
Ct Henry MD [Active] - 03/20/24 11:20 am (You have a follow up visit with Dr. Henry to discuss Watchman. Please call the office with questions. )
Yuliana Benjamin DO [Active] - in two to three weeks
Additional Discharge Medication Instructions: Start eliquis in the evening of 02/02/24
Prescriptions:
New
Eliquis 2.5 mg tablet
2.5 mg PO BID Qty: 60 0RF
cefuroxime axetil 500 mg tablet
500 mg PO Q12H Qty: 10 0RF
Continued
atorvastatin [Lipitor] 80 mg Tablet
80 mg PO HS
fluoxetine [Prozac] 20 mg Capsule
20 mg PO HS
ezetimibe [Zetia] 10 mg Tablet
10 mg PO HS
lisinopril 5 mg tablet
5 mg PO DAILY
Jardiance 10 mg tablet
10 mg PO DAILY
furosemide 20 mg tablet
20 mg PO DAILY
amiodarone 200 mg Tablet
200 mg PO DAILY
ferrous sulfate 325 mg (65 mg iron) tablet
325 mg PO Q48H
metoprolol succinate 25 mg tablet extended release 24 hr
12.5 mg PO BID
pantoprazole [Protonix] 40 mg Tablet,Delayed Release (Dr/Ec)
40 mg PO BID Qty: 60 0RF
acetaminophen [Tylenol] 325 mg Tablet
650 mg PO Q4HPRN PRN (Reason: mild pain)
ondansetron 4 mg Tablet,Disintegrating
4 mg PO Q6HPRN PRN (Reason: nausea)
Gemtesa 75 mg Tablet
75 mg PO DAILY
Discontinued
Eliquis 5 mg tablet
5 mg PO BID
Discharge Orders:
Discharge Patient (As Directed); Ordered 01/31/24
Ordered By: Gumaro Ojeda
Discharge Date and Time
Print Language: FAROESE
--- NOTE | 2024-01-31 16:35 | CM ---
Kyleigh was off the floor for colonoscopy this afternoon; no needs identified at time of initial assessment.
Plan is for discharge home with no needs; will need to check in AM in case something has changed post-colo.
[2024-01-31] MEDS: STERILE WATER FOR INJECTION 10 ML IV (16:42)
[2024-01-31] MEDS: ROCEPHIN 1000 MG IV (16:42)
[2024-01-31] MEDS: FERRLECIT 110 MG IV (16:43)
--- NOTE | 2024-01-31 18:45 | PTCARENOTE ---
Reviewed discharge instructions with patient. Emphasized to restart Eloquis on 02/02/24. Patient verbalizes understanding of all discharge instructions. Peripheral IV and tele removed. Patient awaiting her daughter to transport her home.
== END 2024-01-31 19:06 | disposition home or self-care (01) | DRG 378 ==
LOC: 4 EAST ACU 11:37
PROVIDERS: Nurse Practitioner Acute Care; Nurse Practitioner Adult Health; Physician Assistant; ADMITTING PHYSICIAN Internal Medicine; CONSULT PHYSICIAN Internal Medicine Cardiovascular Disease; EMERGENCY PHYSICIAN Emergency Medicine; FAMILY PHYSICIAN Family Medicine; OTHER PHYSICIAN Internal Medicine Hematology & Oncology; OTHER PHYSICIAN Student in an Organized Health Care Education/Training Program
PROC: 0DJ08ZZ Inspection of Upper Intestinal Tract, Via Natural or Artificial Opening Endoscopic (ICD-10-PCS; 2024-01-29)
PROC: 0DBM8ZX Excision of Descending Colon, Via Natural or Artificial Opening Endoscopic, Diagnostic (ICD-10-PCS; 2024-01-31)
PROC: 0DBL8ZX Excision of Transverse Colon, Via Natural or Artificial Opening Endoscopic, Diagnostic (ICD-10-PCS; 2024-01-31)
PROC: 0DBP8ZX Excision of Rectum, Via Natural or Artificial Opening Endoscopic, Diagnostic (ICD-10-PCS; 2024-01-31)
DX: K92.2 Gastrointestinal hemorrhage, unspecified (principal); D62 Acute posthemorrhagic anemia; N39.0 Urinary tract infection, site not specified; I50.22 Chronic systolic (congestive) heart failure; I13.0 Hypertensive heart and chronic kidney disease with heart failure and stage 1 through stage 4 chronic kidney disease, or unspecified chronic kidney disease; I48.0 Paroxysmal atrial fibrillation; I25.10 Atherosclerotic heart disease of native coronary artery without angina pectoris; N18.31 Chronic kidney disease, stage 3a; D75.839 Thrombocytosis, unspecified; K44.9 Diaphragmatic hernia without obstruction or gangrene; K31.7 Polyp of stomach and duodenum; D12.4 Benign neoplasm of descending colon; K64.0 First degree hemorrhoids; D50.9 Iron deficiency anemia, unspecified; K92.1 Melena
CPT/HCPCS: 88305; 71046; 76770; 80053; 81003; 81015; 82248; 82607; 82728; 82746; 83010; 83540; 83550; 83615; 83735; 83880; 84484; 85014; 85018; 85025; 85027; 85610; 85730; 86704; 86706; 86803; 86850; 86880; 86900; 86901; 86920; 87086; 87340; 93005; 96374; 99285; J2916; P9016

== ENCOUNTER → 2024-02-14 16:25 | Outpatient (REF) | payer OTHER, SELFPAY | LOC: RAD 16:25 | PROVIDERS: ATTENDING PHYSICIAN Internal Medicine Critical Care Medicine; FAMILY PHYSICIAN Family Medicine | DX: R06.09 Other forms of dyspnea (principal); Z85.118 Personal history of other malignant neoplasm of bronchus and lung | CPT/HCPCS: 71250 ==

== ENCOUNTER 2024-04-22 06:12 | Day surgery (SDC) | payer OTHER, SELFPAY ==
[2024-04-22 07:06] VITALS: BMI 20.2
[2024-04-22 07:18] VITALS: BP 125/76
[2024-04-22 07:26] VITALS: BMI 20.2
[2024-04-22 08:40] VITALS: BP 103/66
[2024-04-22 08:45] VITALS: BP 115/67
[2024-04-22 09:00] VITALS: BP 113/60
== END 2024-04-22 09:15 | disposition home or self-care (01) ==
LOC: GI 06:12
PROVIDERS: ATTENDING PHYSICIAN Internal Medicine Gastroenterology
DX: D12.8 Benign neoplasm of rectum (principal); K64.0 First degree hemorrhoids; Z98.890 Other specified postprocedural states; Z79.01 Long term (current) use of anticoagulants
CPT/HCPCS: 45349; 88305

== ENCOUNTER → 2024-06-19 11:08 | Outpatient (REF) | payer OTHER, SELFPAY | LOC: HWRAD 11:08 | PROVIDERS: ATTENDING PHYSICIAN Physical Medicine & Rehabilitation; FAMILY PHYSICIAN Family Medicine; REFERRING PHYSICIAN Nurse Practitioner Family | DX: M54.16 Radiculopathy, lumbar region (principal); R91.1 Solitary pulmonary nodule | CPT/HCPCS: 71046; 71250; 72131 ==

== ENCOUNTER 2024-06-25 02:13 | Inpatient (IN) | payer OTHER, SELFPAY ==
--- NOTE | 2024-06-24 21:13 | ED.GENMED ---
History of Present Illness
General
Chief Complaint: Musculo-Skeletal Complaint
Source: patient, records and family
Exam Limitations: none
Time Seen by Provider: 06/24/24 21:10
Nursing documentation reviewed up to this point in time: agreed with
History of Present Illness
History of Present Illness:
69-year-old female with a past medical history of hypertension, hyperlipidemia, CAD, CHF, atrial fibrillation on Eliquis, lung cancer status post left upper lobectomy, deafness with cochlear implants, emphysema/COPD who presents to the emergency
department with her daughter for evaluation of right hip and groin pain after a fall; she also complains of cough. Regarding her fall: Patient reports that yesterday afternoon she tripped on a power cord and fell onto her right hip. She did not
hit her head or lose consciousness. She says she has had pain in her right hip and right groin since the fall particularly with weightbearing. She has been able to get around with a walker she says. She denies any other injuries during the fall
including denying any neck pain, back pain, rib pain, pain in the rest of her extremities. Regarding cough: She reports for the past few days she has had cough productive of clear phlegm. She reports that during coughing fits she has some trouble
breathing but does not have any consistent shortness of breath. Denies any chest pain. She denies any fevers or chills. She does note she has had some loose stools/diarrhea but denies any other complaints.
Past History
Past History
ED Past Medical History: Arrthythmia (A fib), Cancer (Bladder cancer lung cancer), HTN and Hypercholesterolemia
ED Past Surgical History: Appendectomy, Cardiac (Stent), (X 2) and Other (Bilateral upper lung lobectomy)
Social History
Tobacco: Former smoker
Alcohol: None
Drug: Marijuana
Personal:
Living: alone
Employment: Other
Family History
Family History: Other
Review of Systems
Review of Systems
All Other Systems: ROS reviewed and negative except as documented in HPI and ROS
Constitutional: Denies fever or chills
EENT: Denies sore throat
Respiratory: Reports cough; Denies trouble breathing
Cardiac: Denies chest pain or palpitations
ABD/GI: Reports diarrhea; Denies abdominal pain, nausea or vomiting
: Denies flank pain
Musculoskeletal: Reports joint pain (Right hip/groin pain); Denies neck pain or back pain
Neurological: Denies dizzy or headache
Phy Exam
Physical Exam
Physical Exam:
General: Awake, alert, oriented x3; no acute distress
Head: Normocephalic, atraumatic
Eyes: Conjunctiva normal, pupils equal round and reactive to light bilaterally
Throat: Airway intact, handling secretions
Neck: Trachea midline, no cervical spine tenderness, good range of motion with no pain
Back: No signs of trauma to the back or flank and no tenderness of the thoracic or lumbar spine
Lungs: Patient has scattered wheezing throughout all lung disla, normal respiratory rate, normal work of breathing, normal pulse ox on room air, no evidence of cyanosis
Heart: Regular rate and rhythm, no murmurs, gallops, or rubs; no chest wall or rib tenderness
Abd: Soft, non distended, nontender
Neuro: No gross deficits
Skin: no rash, no lacerations abrasions or bruising appreciated
Extremities: No edema in extremities, equal pulses in all extremities; on specific examination of the right hip she has no bruising or hematoma appreciable on visual inspection and no reproducible tenderness in the lateral hip to palpation; she does
allow for full active range of motion of the right hip although she has pain with extreme of flexion; rest of extremities are atraumatic and she is moving them comfortably
Scores
Heart Failure Risk
Heart Failure Risk Score: Not Applicable
Heart Score for Chest Pain Patients
STEMI patient?: Not applicable
Withdrawal Assessment of Alcohol
Withdrawal Assessment Completed?: Not applicable
Course
Orders/Labs/Results
Orders:
Orders
06/24/24 21:12
CR Chest - 2 Views Urgent
Comment:
Reason For Exam: cough
06/24/24 21:28
COVID-19 Antigen Urgent
Source: Nasal Swab
Complete Blood Count/With Diff Urgent
Comprehensive Metabolic Panel Urgent
Influenza A+B Rapid Molecular Urgent
G[place]O Source: Nasal Swab
Specimen Description:
06/24/24 21:59
CR Hip - RT w/wo Pel 2-3 Vw* Urgent
Comment:
Reason For Exam: hip pain s/p fall
Include a pelvis x-ray?: Yes
06/24/24 23:47
0.9% Sodium Chloride 1000 ml [Nss] 1,000 ml IV BOLUS
06/25/24 00:02
Ipratropium/Albuterol Sulfate [Duoneb] 3 ml INH R NOW ONE
MethylPREDNISolone PF [Solu-Medrol Pf] 125 mg IV NOW STA
Oseltamivir Phosphate [Tamiflu] 75 mg PO NOW STA
Abnormal Lab Results
06/24/24
21:28
WBC 23.4 H 10^3/uL
(4.8-10.8)
Hgb 10.7 L g/dL
(12.0-16.0)
Hct 34.9 L %
(37.0-47.0)
MCV 79.5 L fL
(81.0-99.0)
MCH 24.4 L pg
(27.0-31.0)
MCHC 30.7 L g/dL
(33.0-37.0)
RDW 24.9 H %
(11.5-14.5)
Plt Count 493 H 10^3/uL
(130-400)
Abs Immat Gran (auto) 1.7 H 10^3/uL
(0-0.05)
Absolute Neuts (auto) 19.0 H 10^3/uL
(1.4-6.5)
Absolute Lymphs (auto) 0.9 L 10^3/uL
(1.2-3.4)
Absolute Monos (auto) 1.6 H 10^3/uL
(0.1-0.6)
Immature Gran % 7.2 H %
(0-0.5)
Neutrophils % 81.3 H %
(42.2-75.2)
Lymphocytes % 3.9 L %
(20.5-51.1)
Sodium 133 L mmol/L
(135-145)
Carbon Dioxide 21 L mmol/L
(22-30)
BUN 24 H mg/dl
(7-17)
Creatinine 1.6 H mg/dL
(0.6-1.0)
Glucose 105 H mg/dl
(70-99)
AST 52 H U/L
(14-36)
06/24/24 21:28
06/24/24 21:28
Vital Signs
Initial and Last Documented VS:
Initial Vital Signs
Temp
37.5 C
06/24/24 21:07
Last Documented Vital Signs
Temp Pulse Resp BP Pulse Ox
37.5 C 86 23 122/59 97
06/24/24 21:07 06/24/24 23:30 06/24/24 23:30 06/24/24 23:00 06/24/24 23:30
MDM/Problems Addressed
Differential Diagnosis Includes:
Fall: Hip fracture, hip dislocation, hip contusion, pelvic fracture
Cough: Pneumonia, bronchitis, COPD exacerbation
MDM/Problems Addressed:
69-year-old female presents to the emergency room for evaluation of right hip pain/groin pain after a mechanical ground-level fall yesterday; no other injuries but she is on blood thinners. Also complaining of cough for the past few days productive
of clear sputum and associated with some loose stools. Vitals and exam as above. Will place an IV check labs including CBC CMP, swab for COVID and flu. Check chest x-ray. Check x-ray of the hip and pelvis. Considered CT head given that she is
on a blood thinner but she denies any head trauma, no signs of head trauma on exam and she is awake and alert with GCS 15 and no headache 24 hours after the fall�no indication for emergent head imaging at this point in time.
Labs reviewed: CBC does show a leukocytosis of 23.4; stable anemia. CMP shows mild MICHAEL with a creatinine of 1.6 from baseline of 1.2. She is positive for influenza today I suspect this is the likely etiology of her symptoms�suspect she has a COPD
exacerbation secondary to influenza. Chest x-ray reviewed by me shows no pneumonia. Will treat with DuoNeb, steroids. Treat with Tamiflu. X-ray of the hip reviewed by me shows no acute fracture suspect likely hip contusion. She did have some
hypoxia after initial assessment was placed on 2 L of nasal cannula ultimately required 4 L nasal cannula to maintain saturations. Will plan to admit for continued management of COPD exacerbation secondary to influenza causing acute hypoxic
respiratory failure. Case discussed with hospitalist.
Chronic conditions affecting care:
A-fib on Jonathan does complicate her fall
*Radiology
Radiology exam reviewed: preliminary read by ED provider and radiology read reviewed
*Pulse Oximetry
Patient hypoxic: no
*Critical Care Note
Total Time (30-74mins, 75-104mins- exclusive of procedures): Not Applicable
Data Reviewed
Review of Other/Old Records Reveals: Labs and Records
Source: patient and family
Further Testing Considered But Not Given:
Considered CT head
Patient Management
Discussion with other providers: Hospitalist (Discussed with hospitalist)
Escalation/DeEscalation of care consider admission/obs:
Admission indicated
ED Attending Note
-
Portions of this chart may have been created with voice recognition software.� Occasional wrong word or��sound alike� substitutions may have occurred due to the inherent limitations of voice recognition software.
Discharge Plan
Departure
Patient Disposition: Admit
Date of Disposition: 06/25/24
Time of Disposition: 00:05
Admit to doctor: Toan
Presentation/result/management discussed w/ accepting MD/DO: Hospitalist
Discharge Problem:
COPD exacerbation, Influenza A, Contusion of hip, right, Acute hypoxic respiratory failure
Prescriptions:
No Action
atorvastatin [Lipitor] 80 mg Tablet
80 mg PO HS
fluoxetine [Prozac] 20 mg Capsule
20 mg PO HS
ezetimibe [Zetia] 10 mg Tablet
10 mg PO HS
Jardiance 10 mg tablet
10 mg PO DAILY
furosemide 20 mg tablet
20 mg PO DAILY
amiodarone 200 mg Tablet
200 mg PO DAILY
ferrous sulfate 325 mg (65 mg iron) tablet
325 mg PO Q48H
metoprolol succinate 25 mg tablet extended release 24 hr
12.5 mg PO BID
pantoprazole [Protonix] 40 mg Tablet,Delayed Release (Dr/Ec)
40 mg PO BID Qty: 60 0RF
acetaminophen [Tylenol] 325 mg Tablet
650 mg PO Q4HPRN PRN (Reason: mild pain)
Eliquis 2.5 mg tablet
2.5 mg PO BID Qty: 60 0RF
Gemtesa
1 tab PO DAILY
Referrals:
NONE,* [Family Provider] -
Interventions
Interventions:
*Risk Screen - Suicide Last Done: 06/24/24 21:07
*General Assessment Last Done: 06/24/24 21:07
*Neglect/Abuse Screening Last Done: 06/24/24 21:07
ED- Fall Risk Assessment Last Done: 06/24/24 21:16
*ED COVID-19 Vaccine History Last Done: 06/24/24 21:07
ED-Musculoskeletal Assessment Last Done: 06/24/24 21:16
Discharge Date and Time
Print Language: HEBREW
[2024-06-24 21:16] VITALS: BP 123/68; BMI 22.7
[2024-06-24 21:50] LABS: Hematocrit 34.9 % (37.0-47.0); Hemoglobin 10.7 g/dL (12.0-16.0); Mean Corp Hgb Conc. 30.7 g/dL (33.0-37.0); Mean Corpuscular Hgb 24.4 pg (27.0-31.0); Mean Corpuscular Volume 79.5 fL (81.0-99.0); Platelet Count 493 10^3/uL (130-400); Red Blood Cell Count 4.39 10^6/uL (4.20-5.40); Red Cell Dist. Width 24.9 % (11.5-14.5); White Blood Cell Count 23.4 10^3/uL (4.8-10.8)
[2024-06-24 21:55] LABS: ALT (SGPT) 34 U/L (0-35); AST (SGOT) 52 U/L (14-36); Albumin 4.3 g/dl (3.5-5.0); Alkaline Phosphatase 110 U/L (38-126); Blood Urea Nitrogen 24 mg/dl (7-17); Calcium 8.9 mg/dl (8.4-10.2); Carbon Dioxide 21 mmol/L (22-30); Chloride 99 mmol/L (98-107); Estimated Creatinine Clearance 28 ml/min; Glucose 105 mg/dl (70-99); Potassium 4.4 mmol/L (3.5-5.1); Sodium 133 mmol/L (135-145); Total Bilirubin 1.2 mg/dl (0.2-1.3); Total Protein 6.6 g/dl (6.3-8.2); eGFR 34.48
[2024-06-24 22:05] LABS: COVID-19 Antigen Negative (Negative)
[2024-06-24 22:20] VITALS: BP 118/66
[2024-06-24 22:38] LABS: % Basophils 0.6 % (0-2); % Eosinophils 0.1 % (0-6); % Immature Granulocytes 7.2 % (0-0.5); % Lymphocytes 3.9 % (20.5-51.1); % Monocytes 6.9 % (1.7-9.3); % Neutrophils 81.3 % (42.2-75.2); Absolute Basophils 0.2 10^3/uL (0-0.2); Absolute Immature Granulocytes 1.7 10^3/uL (0-0.05); Absolute Lymphocytes 0.9 10^3/uL (1.2-3.4); Absolute Monocytes 1.6 10^3/uL (0.1-0.6); Anisocytosis 2+; Macrocytosis 3+; Normal RBC Morphology No; Nucleated Red Blood Cells % 0.4 %; Ovalocytes 1+; Polychromasia 1+; Stomatocytes 2+; Tear Drop Red Blood Cells 1+
[2024-06-24 23:00] VITALS: BP 122/59
[2024-06-25] VITALS (54 sets, daily range): BP systolic 64–138; BP diastolic 53–76; PULSE 76–83; O2SAT 98; BMI 21.2; BMI 21.8
[2024-06-25] MEDS: NSS 1000 IV ×3 (00:07→14:50)
[2024-06-25] MEDS: SOLU-MEDROL PF 125 MG IV (00:08)
[2024-06-25] MEDS: TAMIFLU 75 MG PO (00:08)
[2024-06-25] MEDS: DUONEB 3 ML INH ×2 (00:09→19:52)
--- NOTE | 2024-06-25 02:00 | HPS.HSE ---
Addendum entered and electronically signed by Aditya Joya DO 06/25/24 03:53:
Addendum:
Pelvic x-rays reviewed independently and show evidence for R superior pubic rami fracture.
No need for additional CT scan.
PT / OT evaluations. Pain control. Weight-bearing as tolerated.
Original Note:
Family Physician
-
Family Physician: * NONE
Chief Complaint
-
SOB, cough
History of Present Illness
Patient is a 69y F with PMH significant for lung cancer, ASCVD and A-Fib who presents to ED complaining of cough and SOB. Patient states that she had onset of N/V/D on Saturday evening. She went to a baby shower on Saturday and notes that her and
another family member became sick the following day. She has continued to have some loose stools since that time. On Saturday, she also developed cough with chest congestion / mucus production. Today she felt SOB which ultimately prompted her to
present to the ED for further evaluation.
Patient also notes that she suffered a [id number] yesterday. She denies any head injury, LOC, etc.
Since that time she has noted pain in the pubic region that is worse with standing, walking, etc.
Medical History
Past Medical History
Past Medical History: Reports Other
Additional Past Medical History:
Bilateral Lung Cancer s/p Resection (No adjuvant therapies) 11y ago and 7y ago
Hypertension
ASCVD (CAD and Carotid Disease)
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
Bladder Cancer s/p TURBT (07/12/22)
Paroxysmal Atrial Fibrillation
Chronic HFrEF
CKD III
Severe Mitral Regurgitation
Anxiety / Depression
GI Bleed
Past Surgical History: Reports Other
Additional Past Surgical History:
PTCA with Stents
Right Femur ORIF
Appendectomy
x 2
TURBT
Left Upper Lobectomy
Right Upper Lobectomy
Right Radial Pseudoaneurysm Repair
Cochlear Implant
Social History
Tobacco: Former Smoker (Quit smoking cigarettes 20 years ago. Smokes occasional marijuana.)
Alcohol: None
Drug: Marijuana (Occasional marijuana use. Recently quit this per daughter (which is likely what she was referring to when she told ED she quit 'smoking'))
Family History
Family History: Not pertinent
Allergies / Home Medications
Allergies reflects when Allergies were last updated in [facility].
Home Medications with original date entered in [facility]
Allergy/Medication List:
Allergies
Allergy/AdvReac Type Severity Reaction Status Date / Time
pollen extracts Allergy runny Verified 04/22/24 07:18
nose,itchy
eyes
Home Medications
atorvastatin 80 mg tablet (Lipitor) 80 mg PO HS High cholesterol 04/07/22
ezetimibe 10 mg tablet (Zetia) 10 mg PO HS High cholesterol 04/07/22
fluoxetine 20 mg capsule (Prozac) 20 mg PO HS Mental Health/Anxiety 04/07/22
empagliflozin 10 mg tablet (Jardiance) 10 mg PO DAILY 'heart protection' 02/18/23
furosemide 20 mg tablet 20 mg PO DAILY Fluid Retention/Swelling 07/22/23
amiodarone 200 mg tablet 200 mg PO DAILY Arrhythmia 09/21/23
ferrous sulfate 325 mg (65 mg iron) tablet 325 mg PO Q48H Supplement 12/08/23
metoprolol succinate 25 mg tablet,extended release 24 hr 12.5 mg PO BID Blood Pressure 12/08/23
pantoprazole 40 mg tablet,delayed release (Protonix) 40 mg PO BID Gastrointestinal issue #60 tabs 12/09/23
acetaminophen 325 mg tablet (Tylenol) 650 mg PO Q4HPRN PRN mild pain 01/28/24
apixaban 2.5 mg tablet (Eliquis) 2.5 mg PO BID #60 tabs 01/31/24
Gemtesa 1 tab PO DAILY 04/22/24
Review of Systems
-
History Source: Patient
A 12 point ROS was completed and negative except as noted: Yes
Constitutional: Reports Fatigue; Denies Fever or Chills
EENT: Denies Sore Throat
Respiratory: Reports Cough and Trouble Breathing
Cardiac: Denies Chest Pain, Palpitations or Syncope
Abdomen/GI: Reports Diarrhea; Denies Abdominal Pain, Nausea, Vomiting or Bloody Stools
: Denies Dysuria or Frequency
Musculoskeletal: Reports Joint Pain; Denies Edema
Neurological: Denies Dizzy or Headache
Psych: Denies Depression or Anxiety
Physical Exam
Vital Signs
Vital Signs
Temp Pulse Resp BP Pulse Ox
99.5 F 91 18 106/54 96
06/24/24 21:07 06/25/24 01:30 06/25/24 01:30 06/25/24 01:00 06/25/24 01:30
Physical Exam
General: Other (69y F in no acute distress.)
HEENT: Moist mucous membranes and PERRLA
Respiratory: Other (Scattered squeaks and wheezes in all lung disla.)
Cardiac: S1/S2, Irregular Rhythm and Tachycardia; No Murmur
GI: Soft, Non Tender, Non Distended and Normal Bowel Sounds
Musculoskeletal: No Clubbing, No Cyanosis and No Edema
Neuro: AO x 3
Laboratory Results
-
06/24/24 21:28
06/24/24 21:28
Laboratory Results
Total Bilirubin 1.2 mg/dl (0.2-1.3) 06/24/24 21:28
AST 52 U/L (14-36) H 06/24/24 21:28
ALT 34 U/L (0-35) 06/24/24 21:28
Alkaline Phosphatase 110 U/L (38-126) 06/24/24 21:
Impression/Plan
-
A/P: Patient is a 69y F with PMH significant for ASCVD, A-Fib and hypertension who presents to ED complaining of cough and SOB.
Influenza A
Sepsis secondary to the above
Acute Hypoxemic Respiratory Failure secondary to the above
- Admit for further evaluation and treatment.
- Patient presents with leukocytosis, tachycardia, tachypnea and positive assay for Influenza A.
- CXR with patchy opacities bilaterally. Pos abnormal lung sounds diffusely.
- Tamiflu BID.
- Supportive care with O2 support, IVFs, etc.
- Follow proper precautions.
- Follow for clinical improvement.
MICHAEL on CKD III
- SCr = 1.6 compared to known baseline of 1.2.
- Patient notes that she had labs done last week and had already been notified by her Hand Tool Lapper to stop Lasix and Aldactone for a few days.
- Will hold diuretics as noted.
- Gentle IVFs.
- Follow for improvement / return to baseline.
Pelvic Pain s/p Fall
- X-rays in the ED are unremarkable.
- Check CT scan to rule out occult fracture given significant pain with weight bearing.
- PT / OT evaluations, pain control, etc.
ASCVD
Chronic HFrEF
Paroxysmal Atrial Fibrillation
- Stable. No chest pain, palpitations. No evidence of volume overload by exam.
- Holding diuretics acutely as noted above.
- Continue other CV medications including Eliquis for stroke risk reduction.
- Heart rates around 100bpm - likely due to acute illness.
- Continue usual rate control agents and monitor on telemetry for now.
Polycythemia vera
Chronic Leukocytosis
- Baseline WBC around 12k - currently 23k due to acute illness / sepsis.
- Thrombocytosis c/w prior values.
- Hgb increased from prior baseline. (last admission was for GI bleeding)
- Follow cell counts for changes.
Benign Hypertension
- Stable. Continue usual medications with holding parameters.
GERD / Husain's Esophagus
- Stable. Continue BID PPI (s/p prior GI Bleed episode).
History of Bladder Cancer
- Stable. Prior TURBT and BCG therapy.
- Last cysto was 02/2023 and biopsy was normal at that time.
History of Lung Cancer
- s/p bilateral upper lobectomies - most recent was 7 years ago.
- No recent symptoms or issues in this regard.
- CXR without evidence of mass, etc.
Anxiety / Depression
- Stable. Continue fluoxetine.
DVT Prophylaxis: On Eliquis
Code Status: Full
[2024-06-25 07:04] LABS: Hematocrit 30.6 % (37.0-47.0); Hemoglobin 9.3 g/dL (12.0-16.0); Mean Corp Hgb Conc. 30.4 g/dL (33.0-37.0); Mean Corpuscular Hgb 24.4 pg (27.0-31.0); Mean Corpuscular Volume 80.3 fL (81.0-99.0); Mean Platelet Volume 10.7 fL (7.4-10.4); Platelet Count 419 10^3/uL (130-400); Red Blood Cell Count 3.81 10^6/uL (4.20-5.40); Red Cell Dist. Width 24.8 % (11.5-14.5)
[2024-06-25 07:27] LABS: Blood Urea Nitrogen 21 mg/dl (7-17); Calcium 8.3 mg/dl (8.4-10.2); Carbon Dioxide 21 mmol/L (22-30); Chloride 103 mmol/L (98-107); Estimated Creatinine Clearance 32 ml/min; Glucose 127 mg/dl (70-99); Potassium 4.7 mmol/L (3.5-5.1); Sodium 135 mmol/L (135-145); eGFR 40.47
[2024-06-25 07:52] LABS: TSH Reflex To Free T4 1.54 uIU/ml (0.47-4.68)
[2024-06-25] MEDS: PACERONE 200 MG PO (08:36)
[2024-06-25] MEDS: PROTONIX 40 MG PO (08:36)
[2024-06-25] MEDS: TOPROL XL 12.5 MG PO (08:36)
[2024-06-25] MEDS: ELIQUIS 2.5 MG PO (08:37)
--- NOTE | 2024-06-25 10:15 | W.PN.UPDATE ---
Update Note
Progress Note Update
I evaluated Ms. Gonsalez at 1015am
She was on room air with an spo2 of 94% and increases to 98% with deep breaths. There is/was no evidence of sob, respiratory distress and conversational dyspnea. Lung exam with mild rhonchi rrr no edema nor jvd.
Will continue treatment for flu a with tamiflu.
[2024-06-25 10:34] LABS: Procalcitonin 0.15 ng/ml (0.0-0.25)
[2024-06-25] MEDS: TYLENOL 650 MG PO (14:50)
[2024-06-25 18:13] LABS: Glucose - Point of Care 162 mg/dl (70-99)
[2024-06-25] MEDS: VENTOLIN NEBULES 2.5 MG INH (18:20)
[2024-06-25 18:31] LABS: B.E. -12.1 mmol/L; HCO3 17.9 mmol/L (21-28); O2 Saturation % 93.6 % (94-98); PCO2 59 mmHg (32-35); PO2 80 mmHg (83-108)
[2024-06-25 18:32] LABS: pH 7.09 (7.35-7.45)
[2024-06-25 18:56] LABS: INR 1.19; PT 15.7 Sec (11.4-14.6)
[2024-06-25 18:57] LABS: APTT 38.3 Sec (23.4-35.0)
[2024-06-25] MEDS: SUBLIMAZE 50 MCG IV (18:59)
--- NOTE | 2024-06-25 18:59 | W.PN.UPDATE ---
Addendum entered and electronically signed by Alycia Parks MD 06/25/24 19:18:
WBC increased from 22K to 77K--agree with vanco/zosyn
chem pending
Original Note:
Update Note
Progress Note Update
Rapid outpatient for significant work of breathing, diffuse rhonchi bilaterally. Requiring 100% nonrebreather, saturating 94%. Weaning gas, patient had pulm full of hemoptysis while tachypneic. Nebulizers given, x-ray with possible right middle
to lower lobe infiltrate. ABG showing pH 7.09/59/80 on 100 % oxygen. Decision was to intubate. Awaiting labs including lactate, proBNP, procalcitonin, echo, CT chest. Initiated on DuoNebs standing and as needed, antibiotics, MRSA swab. Can
decide on trialing steroids depending on progression. Tolerated intubation well. On propofol and fentanyl. Obtain sputum culture from ET tube, may consider discontinuing apixaban for further hemoptysis. Follow-up lactate, resuscitate as
appropriate.
Time spent >50 minutes
--- NOTE | 2024-06-25 19:00 | PTCARENOTE ---
Patient received at the start of shift, transferred from the floor in respiratory distress. Patient is hearing impaired, we are communicating with her by writing/texting. Patient nods in agreement. BBS with coarse crackles and rhonchi t/o with
expiratory wheezes. Patient intubated by Anesthesia. #8ETT, 23cm at the lip on the right. BBS audible. PRVC 20/TV 450/ FiO2 100%/PEEP +5. Placed on Fentanyl gtt. Levophed and Diprivan gtts started per order, see MAR/flowsheet. Patient is accelerated
junctional rhythm on CM, ? Afib. EKG done. CXR done. New IV sites started right hand #22 and Left FA #20, labs drawn. #16FR temperature sensing cartwright catheter inserted per order, very small amount of cloudy yellow urine retrieved. #18FR [place] sump
GT inserted orally. OGT to LCS with no output. Patient is pale, diaphoretic, fair turgor. Bilateral soft wrist restraints donned, checked and retied every 2 hours. Positive pulses x 4 extremities, no edema. Patient later noted to be in SR with 1st
degree AVB. Levophed titrated for SBP > 90, MAP > 65, Fentanyl and Diprivan gtts titrated for adequate sedation, RASS -2. S1S2 difficult to auscultate secondary to adventitious breath sounds. Abdomen soft, positive bowel sounds. Repositioned every 2
hours.
--- NOTE | 2024-06-25 19:00 | W.PN.ANESINT ---
Anesthesia Intubation Note
- Intubation Note
Intubation Note:
Diagnosis: Respiratory failure/acidosis
Blade: videoscope 4
Tube Size: 8.0
Depth: 22 cm
Side Taped: right
Drugs Used: 70 mg propofol, 50 mg rocuronium, 100 mcg phenylephrine
Grade View: 1
EtCO2 Present: yes
Atraumatic: yes
Attempts: 1
Insertion Start and Stop Time: start/stop: 1884
SaO2 Pre: 95
SaO2 Post: 99
Glidescope Used: see above
Other Airway Adjustments:
Pre-Oxygenated: yes
Portable Chest X-Ray: per ICU staff
RSI: yes
Suctioned: no
Bilateral Breath Sounds Confirmed: yes
Vent Settings:
Settings per ___Attending Physician
[2024-06-25 19:10] LABS: Hematocrit 41.1 % (37.0-47.0); Hemoglobin 12.1 g/dL (12.0-16.0); Mean Corp Hgb Conc. 29.4 g/dL (33.0-37.0); Mean Corpuscular Hgb 23.9 pg (27.0-31.0); Mean Corpuscular Volume 81.2 fL (81.0-99.0); Platelet Count 744 10^3/uL (130-400); Red Blood Cell Count 5.06 10^6/uL (4.20-5.40); White Blood Cell Count 76.9 10^3/uL (4.8-10.8)
[2024-06-25 19:14] LABS: Absolute Neutrophils -Man Diff 60.7 10^3/uL (1.4-6.5); Atypical Lymphocytes 4 %; Band Neutrophils 3 % (0-3); Lymphocytes 2 % (20-51); Monocytes 14 % (2-9); Myelocytes 1 % (-); Normal RBC Morphology No; Nucleated Red Blood Cells 1 (-); Platelets Checked Yes; Segmented Neutrophils 76 % (42-75)
[2024-06-25 19:16] LABS: Anisocytosis 1+; Hypochromasia 1+; Macrocytosis 1+; Microcytosis 1+; Polychromasia 1+
[2024-06-25 19:18] LABS: Total Cells Counted 100
[2024-06-25 19:21] LABS: ALT (SGPT) 55 U/L (0-35); AST (SGOT) 82 U/L (14-36); Albumin 3.7 g/dl (3.5-5.0); Alkaline Phosphatase 104 U/L (38-126); Blood Urea Nitrogen 25 mg/dl (7-17); Calcium 8.2 mg/dl (8.4-10.2); Carbon Dioxide 17 mmol/L (22-30); Chloride 104 mmol/L (98-107); Estimated Creatinine Clearance 32 ml/min; Glucose 260 mg/dl (70-99); Magnesium 2.4 mg/dl (1.6-2.3); Phosphorus 7.4 mg/dl (2.5-4.5); Potassium 5.5 mmol/L (3.5-5.1); Sodium 136 mmol/L (135-145); Total Bilirubin 0.7 mg/dl (0.2-1.3); Total Protein 6.1 g/dl (6.3-8.2); Triglycerides 206 mg/dl (10-149); eGFR 40.47
[2024-06-25 19:26] LABS: Lactic Acid 4.9 mmol/L (0.7-2.0)
[2024-06-25] MEDS: SUBLIMAZE 100 IV (19:30)
[2024-06-25 19:32] LABS: NT-proBNP 12400 pg/ml; Troponin I < 0.012 ng/ml
[2024-06-25 19:49] LABS: Procalcitonin 0.28 ng/ml (0.0-0.25)
[2024-06-25] MEDS: DIPRIVAN 100 IV (19:49)
[2024-06-25] MEDS: VANCOCIN 530 MG IV (19:50)
[2024-06-25] MEDS: ZOSYN 50 IV (19:56)
[2024-06-25] MEDS: LEVOPHED 250 IV (19:57)
--- NOTE | 2024-06-25 20:11 | PHA.VAN.IN ---
Assessment
- Assessment
Renal Function: Appears similar to baseline
Concomitant Antimicrobials: piperacillin/tazobactam
Plan
- Plan
Initial / Loading Dose: vanc 1500mg
Maintenance Regimen: dosing by level
Monitoring: random level 06/26 599
Pharmacokinetics Vancomycin I
- -
Patient Age: 69
Patient Sex: Female
Vancomycin Day #: 1
Indication: Pulmonary/Respiratory
Requesting Provider: Dr. Arias
Pertinent Antimicrobial Allergies:
no pertinent antimicrobial allergies
Height / Weight:
Height 5 ft 4 in
Actual Weight 55.962 kg
- Vital Signs / Lab Results
Temp Pulse Resp BP Pulse Ox
97.8 F 79 20 124/62 100
06/25/24 16:00 06/25/24 19:54 06/25/24 19:54 06/25/24 16:00 06/25/24 19:54
Lab Results - Hematology
06/24/24 06/25/24 06/25/24
21:28 06:42 18:15
WBC 23.4 H 22.0 H 76.9 H*
Band Neutrophils 3
Lab Results - Chemistry
06/24/24 06/25/24 06/25/24
21:28 06:42 18:15
BUN 24 H 21 H Cancelled
Creatinine 1.6 H 1.4 H Cancelled
Estimated Creat Clear 28 32 Cancelled
Albumin 4.3 Cancelled
06/25/24
18:59
BUN 25 H
Creatinine 1.4 H
Estimated Creat Clear 32
Albumin 3.7
06/25/24
18:15
Lactic Acid 4.9 H*
Microbiology Results
06/24/24 21:28 Influenza Types A & B (MELANIE) - Final
Nasal Swab Influenza A Positive, NAAT
[2024-06-25 20:17] LABS: B.E. -8.6 mmol/L; HCO3 17.4 mmol/L (21-28); PCO2 37 mmHg (32-35); PO2 268 mmHg (83-108); Potassium 4.2 mMOL/L (3.5-5.1); Sodium 135 mMOL/L (136-145); pH 7.28 (7.35-7.45)
[2024-06-25] MEDS: TOPROL XL PO (21:50)
--- NOTE | 2024-06-25 23:15 | PTCARENOTE ---
Patient to CT scan accompanied by RN and respiratory therapist. Patient tolerated well. Returned to ICU at 2345.
[2024-06-26] VITALS (58 sets, daily range): BP systolic 72–178; BP diastolic 49–135; BMI 22.1
--- NOTE | 2024-06-26 | PTCARENOTE ---
Assessment essentially unchanged except FiO2 on ventilator decreased to 40%. Afebrile. VSS. Rouses easily to tactile stimuli. Attempt to sedate patient comfortably while on Levophed. See flowsheet for adjustments. UO improving. Repeat lactic acid
and urine for legionella sent per order.
[2024-06-26 00:04] LABS: Glucose - Point of Care 144 mg/dl (70-99)
[2024-06-26] MEDS: LIPITOR 80 MG PO (00:11)
[2024-06-26] MEDS: PROZAC 20 MG PO (00:11)
[2024-06-26] MEDS: TAMIFLU 30 MG PO (00:11)
[2024-06-26 00:59] LABS: Lactic Acid 1.8 mmol/L (0.7-2.0)
[2024-06-26] MEDS: ZOSYN 50 IV ×4 (02:10→20:10)
[2024-06-26] MEDS: DIPRIVAN 100 IV ×2 (03:34→11:15)
--- NOTE | 2024-06-26 04:00 | PTCARENOTE ---
Patient remains essentially stable and without significant change in physical assessment. Titrated Propofol and Fentanyl, patient is lightly sedated but calm when awake. Denies pain when asked (communicating in writing on clipboard). Levophed
titrated for MAP > 65. Minimal secretions via ETT. Moderate secretions orally. Weak cough with suctioning.
--- NOTE | 2024-06-26 04:20 | W.PN.SEPSIS ---
Sepsis
Vital Signs
Temp Pulse Resp BP Pulse Ox
98.3 F 59 22 98/59 100
06/26/24 03:58 06/26/24 03:00 06/26/24 03:00 06/26/24 03:00 06/26/24 03:00
Physical Exam
Physical Exam:
A focused exam was performed after fluid resuscitation.
Capillary Refill
Bilateral Lower Extremity:
Sarbjit Time: Less than 3 sec
Pulse Evaluation
Bilateral:
Pulse Evaluation: Present
[2024-06-26 05:00] LABS: Venous Blood Gas B.E. -4.8 mmol/L (-4 to +4); Venous Blood Gas HCO3 18.6 mmol/L (22-27); Venous Blood Gas O2 Sat % 98.8 %; Venous Blood Gas pCO2 28 mmHg (35-48); Venous Blood Gas pH 7.43 (7.32-7.43); Venous Blood Gas pO2 158 mmHg (30-50)
[2024-06-26 05:01] LABS: Venous Blood Gas O2 Therapy 40
[2024-06-26 05:05] LABS: Hematocrit 29.6 % (37.0-47.0); Hemoglobin 9.1 g/dL (12.0-16.0); Mean Corp Hgb Conc. 30.7 g/dL (33.0-37.0); Mean Corpuscular Hgb 23.9 pg (27.0-31.0); Mean Corpuscular Volume 77.9 fL (81.0-99.0); Mean Platelet Volume 10.1 fL (7.4-10.4); Platelet Count 499 10^3/uL (130-400); Red Cell Dist. Width 24.9 % (11.5-14.5); White Blood Cell Count 37.1 10^3/uL (4.8-10.8)
[2024-06-26 05:25] LABS: Vancomycin Random 15.9 ug/ml
[2024-06-26 05:27] LABS: ALT (SGPT) 51 U/L (0-35); AST (SGOT) 60 U/L (14-36); Albumin 3.1 g/dl (3.5-5.0); Alkaline Phosphatase 88 U/L (38-126); Blood Urea Nitrogen 29 mg/dl (7-17); Calcium 8.4 mg/dl (8.4-10.2); Carbon Dioxide 19 mmol/L (22-30); Chloride 104 mmol/L (98-107); Estimated Creatinine Clearance 32 ml/min; Glucose 114 mg/dl (70-99); Magnesium 2.2 mg/dl (1.6-2.3); Potassium 4.6 mmol/L (3.5-5.1); Sodium 132 mmol/L (135-145); Total Bilirubin 0.9 mg/dl (0.2-1.3); Total Protein 5.2 g/dl (6.3-8.2); eGFR 40.47
--- NOTE | 2024-06-26 06:15 | PTCARENOTE ---
UO 300cc for shift with slight weight gain noted. Notified Carlo Sanders APN. Continue current treatment, no new orders at this time.
--- NOTE | 2024-06-26 07:05 | PTCARENOTE ---
Report given verbally to Angeles irizarry RN. Questions answered.
[2024-06-26] MEDS: DUONEB 3 ML INH ×4 (07:15→20:26)
--- NOTE | 2024-06-26 07:36 | CON.INTV ---
Consultation
Consultation Request
Date/Time Consultation Requested: 06/26/2024-7 AM
Date/Time Consultation Performed: 06/26/2024-7:30 AM
Requesting Provider: Hospitalist
Performing Provider: Dr. Garsia
Reason for Consultation: Respiratory failure
Medical History
-
Chief Complaint: Shortness of breath
History of Present Illness:
69-year-old former smoking female with a history of underlying lung cancer/resection 11 and again 7 years ago, hypertension, CAD, carotid disease, polycythemia vera, bladder cancer, chronic kidney disease, GI bleed, presented with nausea vomiting
and diarrhea who subsequently developed chest congestion and shortness of breath eventually necessitating intubation-hander in consulted for ventilator/critical care management 06/26/2024. Patient is somewhat sedated on ventilator, does open eyes,
tries to follow commands, no increase secretions, no obvious signs of chest pain or abdominal pain
Past Medical History
Past Medical History: None (Bilateral lung cancer status post resection 11 years ago and then 7 years ago. Hypertension. CAD/stents. Carotid disease. JAK2 positive P vera with chronic leukocytosis and thrombocytosis. Bladder cancer/TURBT 2022.
PAF. Heart failure reduced EF. Chronic kidney disease stage III. )
Past Surgical History: None (Mitral regurgitation. Anxiety. Depression. GI bleed. Right femur ORIF. Appendectomy. x 2. Left upper lobectomy. Right upper lobectomy. Right radial pseudoaneurysm repair. Cochlear implant.)
Social History
Tobacco: Former Smoker ([id number] quit 20 years ago, smokes occasional marijuana)
Alcohol: None
Drug: Marijuana
Occupational Exposures: No known asbestos exposure
Environmental Exposures: No known tuberculosis exposure
Family History
Family History: Reviewed & Not Pertinent
Allergies / Home Medications
Allergies
Allergy/AdvReac Type Severity Reaction Status Date / Time
pollen extracts Allergy runny Verified 04/22/24 07:18
nose,itchy
eyes
Home Medications
�Medication �Instructions �Recorded �Confirmed �Last Taken �Type
atorvastatin 80 mg tablet (Lipitor) 80 mg PO HS High cholesterol 04/07/22 06/25/24 04/21/24 20:00 History
ezetimibe 10 mg tablet (Zetia) 10 mg PO HS High cholesterol 04/07/22 06/25/24 04/21/24 20:00 History
fluoxetine 20 mg capsule (Prozac) 20 mg PO HS Mental Health 04/07/22 06/25/24 04/20/24 20:00 History
empagliflozin 10 mg tablet 10 mg PO DAILY heart protection 02/18/23 06/25/24 04/21/24 08:00 History
(Jardiance)
furosemide 20 mg tablet 20 mg PO DAILY Fluid 07/22/23 06/25/24 04/21/24 08:00 History
Retention/Swelling
amiodarone 200 mg tablet 200 mg PO DAILY Arrhythmia 09/21/23 06/25/24 04/21/24 08:00 History
acetaminophen 325 mg tablet 650 mg PO TID Pain 01/28/24 06/25/24 Unknown History
(Tylenol)
apixaban 2.5 mg tablet (Eliquis) 2.5 mg PO BID #60 tabs 01/31/24 06/25/24 04/19/24 Rx
vibegron 75 mg tablet (Gemtesa) 75 mg PO DAILY Urinary Issue 04/22/24 06/25/24 04/21/24 08:00 History
zbxseudbp-XDU-FQ-acetaminophen 7.5 15 ml PO HSPRN PRN sleep 06/25/24 06/25/24 Unknown History
mg-60 [id number]/30mL oral liqd
metoprolol succinate 25 mg 12.5 mg PO BID Heart Failure 06/25/24 06/25/24 Unknown History
tablet,extended release 24 hr
(Toprol XL)
therapeutic multivitamin 1 tab PO DAILY Supplement 06/25/24 06/25/24 Unknown History
umeclidinium 62.5 mcg-vilanterol 1 inh inhalation R DAILY 06/25/24 06/25/24 Unknown History
25 mcg/actuation powdr for Lung/Breathing Issues
inhalation (Anoro Ellipta)
Review of Systems
-
Unable to Obtain full review of systems at this time due to: Patient Intubation
Vitals / Labs / Diagnostic Testing
Vital Signs
Temp Pulse Resp BP Pulse Ox
99.3 F 56 22 107/71 100
06/26/24 07:28 06/26/24 07:15 06/26/24 07:15 06/26/24 06:00 06/26/24 07:17
Lab Data
06/26/24 04:49
06/26/24 04:49
Laboratory Results
06/25/24 06/25/24 06/25/24
18:15 19:30 20:03
PT 15.7 H
INR 1.19
APTT 38.3 H
pH 7.09 L* Cancelled 7.28 L
pCO2 59 H Cancelled 37 H
pO2 80 L Cancelled 268 H
HCO3 17.9 L Cancelled 17.4 L
O2 Delivery Level Rapid Cancelled
Microbiology
06/24/24 21:28 Nasal Swab Influenza Types A & B (MELANIE) - Final
Influenza A Positive, NAAT
Diagnostic Testing:
Physical Exam
-
Exam:
Well-nourished and well-developed in no apparent distress
HEENT-atraumatic, normocephalic, oral tracheal intubation
Neck-supple, no JVD, no bruit
Heart-regular rate and rhythm, systolic murmur
Chest with diminished breath sounds, prolonged expiratory time, rare basilar crackles
Back-no tenderness
Abdomen-soft, nontender, nondistended, no hepatosplenomegaly
Extremities-no cyanosis, clubbing, trace edema
Integument-intact, no rashes, lesions or ecchymosis
Neurologically intermittently alert though sedated on the ventilator, nonfocal
Assessment
-
69-year-old former smoking female with a history of underlying lung cancer/resection 11 and again 7 years ago, hypertension, CAD, carotid disease, polycythemia vera, bladder cancer, chronic kidney disease, GI bleed, presented with nausea vomiting
and diarrhea who subsequently developed chest congestion and shortness of breath eventually necessitating intubation-hander in consulted for ventilator/critical care management 06/26/2024.
Respiratory decompensation requiring intubation
Intubated 06/26/2024
Extubated
Influenza
Sepsis
MICHAEL
Pelvic pain status post fall
Leukocytosis-chronic with JAK2 positive P vera
Anemia-microcytic
Thrombocytosis
Mild hyponatremia
Hyperglycemia
Transaminitis
Conditions present prior to admission:
Lung wnpdvj-jkdtzzuwz-snrg resection 11 years ago and then 7 years ago-followed at [facility]
Former spifox-04-fmpr-year quit 1998
Hypertension.
CAD/stents.
Carotid disease.
JAK2 positive P vera with chronic leukocytosis and thrombocytosis.
Bladder cancer/TURBT 2022.
PAF.
CHF-reduced EF-recently improved from 30% to 50-55%
Chronic kidney disease stage III.
Mitral regurgitation. Anxiety. Depression. GI bleed. Right femur ORIF. Appendectomy. x 2. Left upper lobectomy. Right upper lobectomy. Right radial pseudoaneurysm repair. Cochlear implant.
Plan
Patient with significant respiratory decompensation requiring intubation
Ventilator settings reviewed
ABG reviewed
Ventilator adjusted
Wean FiO2
Spontaneous breathing trial once stabilized
VAP prevention protocol
Nebulizers
Propofol and fentanyl for comfort
Check cultures
Sputum culture
Empiric antibiotics-vancomycin and Zosyn initiated
Tamiflu
Intravenous fluid resuscitation
Follow lactate
Pressors-norepinephrine for now
Monitor renal function-nephrology evaluation if renal function does not improve
Monitor heart rhythm
Chronic anticoagulation on Eliquis
Amiodarone continues as well
Monitor blood sugar
Insulin supplementation as needed
Follow hemoglobin
Transfuse if needed
Monitor liver functions
DVT prophylaxis-on Eliquis
GI prophylaxis while on the ventilator and hypotensive-pantoprazole
Patient last seen in the pulmonary office-Dr. Wolf 05/19/2024
Critical care statement: A total of 65 minutes of critical care time was provided for this patient today. This includes management of unstable vital signs, evaluation of the patient at bedside, reviewing the patient's pertinent medical records
including radiographs, management of ventilator, spontaneous breathing trial, pressor management, microbiology, laboratory evaluations, and discussion with primary team, consultants, pharmacy, nutrition, physical therapy, case management, charge
nurse, critical care nursing, and respiratory therapy.
Diagnostic data:
Chest x-ray 01/28/2024-NAD
CT chest 02/14/24-postoperative changes, 7 mm solid nodule right lower lobe
CT chest 06/19/2024-stable [address] chest 06/25/2024-ET tube 1 cm above mohsen, bilateral pneumonia
CT chest PE study 07/21/2023: No PE. Findings consistent with CHF and moderate pulmonary interstitial edema. Superimposed pneumonia in the lower lobes not definitely excluded.� New area of lung herniation involving the lingula.
09/21/2023-� CXR-� Patchy airspace opacities in the mid to lower lung and lower right lung concerning for pneumonia.� No pleural effusion.��
09/23/2023-� CXR- interval improvement in the patchy bilateral airspace disease.
CXR 01/28/2024: No acute disease
CT chest 02/14/24: Postoperative changes bilateral upper lobectomies with mosaic attenuation of the lungs which is nonspecific however can be infectious/inflammatory or seen with mild interstitial edema.� 7 mm solid nodule within the posterior right
lower lobe, follow-up recommended.CXR 03/07/2024: Bilateral airspace filling may be due to pulmonary edema but infiltrative other etiology such as inflection/inflammatory not excluded. Cardiomegaly.� Bilateral hilar prominence may represent central
pulmonary vascular congestion or pulmonary hypertension.
CT chest 03/07/2024: Bilateral lung hazy paving airspace filling with thickening of secondary lobules and dependent consolidation may be due to pulmonary edema, acute respiratory distress syndrome, bacterial pneumonia, acute interstitial pneumonia
or pulmonary alveolar proteinosis.� Fluid within the esophagus to the thoracic inlet may be due to reflux or esophageal dysmotility.� Dependent secretions within the trachea.
Echocardiogram 09/12/2023-EF 50-55%, stage II diastolic dysfunction, moderate to severe mitral regurgitation, PA systolic 58
Cardiac catheterization 06/2022-� Cath- chronic occlusion of the RCA with diffuse atherosclerosis.� 3-4+ MR with severely dilatted left atrium and severe posterior basal hypokinesis.�
PFT 02/07/2024-FEV1 1.75-75%, FVC 2.96-96%, ratio 59%, TLC 89%, RV 80%, DLCO 30%, DLCO/VA 45%
Data Reviewed
-
PFT: Report reviewed by me
EKG: Report reviewed by me
Radiology: Report reviewed by me
CT Scan: Image personally visualized and interpreted and Report reviewed by me
Medical Tests (Nuc Med, Echo etc): Image personally visualized and interpreted
Labs: Labs reviewed by me
Critical Care Time (in minutes): 65
[2024-06-26] MEDS: PROTONIX IV 40 MG IV (09:15)
[2024-06-26] MEDS: NSS (PRESERVATIVE FREE) 10 ML IV (09:15)
[2024-06-26] MEDS: PACERONE 200 MG PO (09:15)
[2024-06-26] MEDS: SUBLIMAZE 100 IV ×2 (09:38→23:35)
--- NOTE | 2024-06-26 11:53 | PTCARENOTE ---
Pt oriented x3. Writes to communicate. Restraints d/c'd.
SBT this am. Pt reported feeling SOB. SpO2 100% on 40% FiO2 at that time. GEODETIC SURVEYOR placed pt back on A/C. Pt reported feeling anxious. Stacking breaths. Propofol restarted. Pt appears comfortable at this time. Lungs course with scattered
rhonchi. Small amount of blood tinged secretions. Sinus rhythm. Levophed weaned off. Clear yellow urine via cartwright. OG tube present.
All other assessments unchanged.
[2024-06-26 12:19] LABS: Glucose - Point of Care 127 mg/dl (70-99)
--- NOTE | 2024-06-26 13:26 | PHA.VAN.FU ---
Vancomycin Assessment / Plan
- Assessment
Renal Function: Stable
WBC's are: Trending Down
In the past 24 hrs, patient has been: Afebrile
Concomitant Antimicrobials: piperacillin/tazobactam, oseltamivir
- Assessment - Therapeutic Drug Monitoring
Random Level: 15.9 - drawn ~9H after 1500mg loading dose
Sample was not protected from light so may have had some degradation of sample
- Dosing Plan
Dosing by Level: Re-dose today (Vanc 500mg)
- Monitoring Plan
Random Level: 06/27 0600
- Follow Up
Pharmacy will continue to follow.
Vancomycin Follow UP
- -
Patient Age: 69
Patient Sex: Female
Vancomycin Day #: 2
Indication: Pulmonary/Respiratory
Requesting Provider: Dr. Arias
Pertinent Antimicrobial Allergies:
no pertinent antimicrobial allergies
Height / Weight:
Height 5 ft 4 in
Actual Weight 58.4 kg
- Vital Signs / Lab Results
Temp Pulse Resp BP Pulse Ox
98.3 F 79 22 128/64 100
06/26/24 11:10 06/26/24 13:00 06/26/24 13:00 06/26/24 13:00 06/26/24 13:00
Lab Results - Hematology
06/24/24 06/25/24 06/25/24
21:28 06:42 18:15
WBC 23.4 H 22.0 H 76.9 H*
Band Neutrophils 3
06/26/24
04:49
WBC 37.1 H
Band Neutrophils
Lab Results - Chemistry
06/24/24 06/25/24 06/25/24
21:28 06:42 18:15
BUN 24 H 21 H Cancelled
Creatinine 1.6 H 1.4 H Cancelled
Estimated Creat Clear 28 32 Cancelled
Albumin 4.3 Cancelled
06/25/24 06/26/24
18:59 04:49
BUN 25 H 29 H
Creatinine 1.4 H 1.4 H
Estimated Creat Clear 32 32
Albumin 3.7 3.1 L
06/25/24 06/26/24 06/26/24
18:15 00:00 00:38
Lactic Acid 4.9 H* Cancelled 1.8
06/26/24
05:55
Lactic Acid Cancelled
Microbiology Results
06/25/24 20:08 Gram Stain - Preliminary
Sputum
06/25/24 20:10 Nasal Screen MRSA (PCR) - Final
Nose MRSA not detected - performed by PCR methodology.
06/26/24 00:29 Legionella Urinary Antigen - Final
Urine Negative for Legionella pneumophila Serogroup 1 antigen.
A negative result does not rule out the possiblity of
Legionella infection due to other serogroups or species of
Legionella. Clinical correlation is recommended.
Streptococcus pneumoniae Antigen (M - Final
Negative for Streptococcus pneumoniae antigen.
A negative result does not exclude infection with
Streptococcus pneumoniae. Clinical correlation is
recommended.
06/24/24 21:28 Influenza Types A & B (MELANIE) - Final
Nasal Swab Influenza A Positive, NAAT
Therapeutic Drug Monitoring
Random Vancomycin 15.9 ug/ml 06/26/24 04:49
--- NOTE | 2024-06-26 13:46 | W.PN.HOSP.TC ---
Addendum entered and electronically signed by Gray Dill MD 06/26/24 14:14:
NAD, endotracheally intubated, able to follow commands
Hard of hearing uses cochlear implants left side only works as she lost the right side
Scleral Anicteric
MMM
No JVD
Mechanical sounds however there is still some evidence of rhonchi
RRR, S1/S2
Soft, NT, ND, BS+
Warm, Dry
AAOx3, she is able to read comprehend and give a thumbs up to understand
Calm
Original Note:
Today's Communication/Plan
-
Assessment / Plan
Assessment / Plan
Acute hypoxemic/hypercapnic respiratory failure requiring intubation along with a respiratory acidosis
Suspect primary cause of respiratory distress likely mucous plugging or worsening pneumonia
-Intubated
-Daily SAT SBT, sedation per ICU, GI prophylaxis
-Mechanical ventilator settings per ICU however with use low tidal volumes
-PF ratio greater than 300 therefore low clinical suspicion for ARDS
-IV antibiotics vancomycin and Zosyn
-Continue Tamiflu
-MDIs
Shock circulatory/medication induced versus septic
-Wean pressors as tolerated
-Follow-up blood cultures
-Wean medications that could potentially cause hypotension such as propofol as tolerated
-Maintain MAP greater than 65
-Continue vancomycin and Zosyn
-Continue Tamiflu
MICHAEL on CKD 3
-MICHAEL component resolved
-Likely at baseline as unchanged in 2 days
-Hold diuretics for now
Heart failure with recovered EF, appears compensated at this time, Lasix being held, would be in favor to resume in the next 24 hours
CAD
Continue Zetia and statin along with beta-blockade
On apixaban
Paroxysmal atrial fibrillation in sinus rhythm on amiodarone and Eliquis beta-blockade
GERD Husain's esophagus
Continue PPIs twice daily
History of lung CVA outpatient follow-up
Anticipated Discharge: > 48 hours
Subjective/Interval History
-
Date of Service: June 26, 2024
seen and examined. was awake and able to respond on mechanical ventilator
Objective Data
-
Labs:
Laboratory Results
06/26/24
04:49
WBC 37.1 H
Hgb 9.1 L D
Hct 29.6 L
Plt Count 499 H D
Sodium 132 L
Potassium 4.6
Chloride 104
Carbon Dioxide 19 L
BUN 29 H
Creatinine 1.4 H
Glucose 114 H
Calcium 8.4
Total Bilirubin 0.9
AST 60 H
ALT 51 H
Alkaline Phosphatase 88
Vital Signs:
Vital Signs
Temp Pulse Resp BP Pulse Ox
98.3 F 79 22 128/64 100
06/26/24 11:10 06/26/24 13:00 06/26/24 13:00 06/26/24 13:00 06/26/24 13:00
I&O
06/25/24 06/26/24 06/27/24
06:59 06:59 06:59
Intake Total 1142.9 / 1175.6 211.6 / 211.6
Output Total 302 / 302 195 / 195
Balance 840.9 / 873.6 16.6 / 16.6
[2024-06-26] MEDS: SUBLIMAZE 50 MCG IV ×3 (14:16→22:15)
[2024-06-26] MEDS: VANCOCIN HCL 500 MG 100 IV (14:59)
[2024-06-26] MEDS: PRECEDEX 100 IV ×2 (15:12→20:10)
[2024-06-26] MEDS: LEVOPHED 250 IV (17:07)
[2024-06-26 18:06] LABS: Glucose - Point of Care 129 mg/dl (70-99)
--- NOTE | 2024-06-26 18:17 | PTCARENOTE ---
Pt reporting anxiety. Precedex started. Propofol weaned off. Remains on Fentanyl and Levophed gtts. Tube feeds started. All other assessments unchanged.
--- NOTE | 2024-06-26 19:20 | PTCARENOTE ---
Assumed care of pt. approx 1900.
Remains on light sedation w. Dex. See titration flowsheet. RASS 0.
Intubated, tolerating well.
Pt. communicating effectively via writing board, appropriate head nods to express needs, offers no complaints at this time.
Hemodynamically stable on minimal vasopressor requirement, see titration flowsheet for details.
--- NOTE | 2024-06-26 20:20 | PTCARENOTE ---
Pt. RASS increased, very anxious, ICU OH notified, fent/dex increased. See titration flowsheet.
--- NOTE | 2024-06-26 22:07 | PTCARENOTE ---
Pt. restless, asynch with vent, resp/icu laila notified, vent settings changed to ASV, sedation further increased.
[2024-06-26] MEDS: PROZAC 20 MG TUBE (22:14)
[2024-06-26] MEDS: LIPITOR 80 MG TUBE (22:14)
[2024-06-26] MEDS: TAMIFLU 30 MG TUBE (22:15)
--- NOTE | 2024-06-26 23:13 | PTCARENOTE ---
Pt. having persisting agitation, dex max dose. ICU OH notified.
[2024-06-27] VITALS (38 sets, daily range): BP systolic 83–133; BP diastolic 44–74; BMI 22.3
[2024-06-27 00:04] LABS: Glucose - Point of Care 129 mg/dl (70-99)
[2024-06-27] MEDS: ZOSYN 50 IV ×4 (02:43→20:36)
[2024-06-27] MEDS: TYLENOL ORAL SOLUTION 650 MG TUBE (04:15)
[2024-06-27 05:13] LABS: Blood Urea Nitrogen 25 mg/dl (7-17); Calcium 7.9 mg/dl (8.4-10.2); Carbon Dioxide 19 mmol/L (22-30); Chloride 107 mmol/L (98-107); Estimated Creatinine Clearance 35 ml/min; Glucose 123 mg/dl (70-99); Potassium 4.4 mmol/L (3.5-5.1); Sodium 135 mmol/L (135-145); eGFR 44.24
[2024-06-27 05:15] LABS: Vancomycin Random 11.1 ug/ml
[2024-06-27 05:34] LABS: Hematocrit 27.8 % (37.0-47.0); Hemoglobin 8.5 g/dL (12.0-16.0); Mean Corp Hgb Conc. 30.6 g/dL (33.0-37.0); Mean Corpuscular Hgb 24.4 pg (27.0-31.0); Mean Corpuscular Volume 79.7 fL (81.0-99.0); Platelet Count 403 10^3/uL (130-400); Red Blood Cell Count 3.49 10^6/uL (4.20-5.40); Red Cell Dist. Width 24.6 % (11.5-14.5)
[2024-06-27 06:10] LABS: Glucose - Point of Care 143 mg/dl (70-99)
--- NOTE | 2024-06-27 07:18 | W.PN.INTV ---
Today's Communication / Plan
Recommendations
Wean FiO2
Gentle sedation for anxiety
Try spontaneous breathing trial
Antibiotics continue
Nebulizers
Anxiolytics
Assessment
-
69-year-old former smoking female with a history of underlying lung cancer/resection 11 and again 7 years ago, hypertension, CAD, carotid disease, polycythemia vera, bladder cancer, chronic kidney disease, GI bleed, presented with nausea vomiting
and diarrhea who subsequently developed chest congestion and shortness of breath eventually necessitating intubation-pediatric psychiatrist consulted for ventilator/critical care management 06/26/2024.
Respiratory decompensation requiring intubation
Intubated 06/26/2024
Extubated
Influenza
Sepsis
MICHAEL
Pelvic pain status post fall
Leukocytosis-chronic with JAK2 positive P vera
Anemia-microcytic
Thrombocytosis
Mild hyponatremia
Hyperglycemia
Transaminitis
Conditions present prior to admission:
Lung omcqla-hsrahfkur-yrbz resection 11 years ago and then 7 years ago-followed at [facility]
Former [id number]-year quit 1998
Hypertension.
CAD/stents.
Carotid disease.
JAK2 positive P vera with chronic leukocytosis and thrombocytosis.
Bladder cancer/TURBT 2022.
PAF.
CHF-reduced EF-recently improved from 30% to 50-55%
Chronic kidney disease stage III.
Mitral regurgitation. Anxiety. Depression. GI bleed. Right femur ORIF. Appendectomy. x 2. Left upper lobectomy. Right upper lobectomy. Right radial pseudoaneurysm repair. Cochlear implant.
Plan
Remains critically ill sedated on the ventilator
Ventilator settings reviewed
FiO2 weaned
Attempt spontaneous breathing trial now that secretions are manageable-reviewed with INTERNAL AFFAIRS INVESTIGATOR and critical care nursing
Follow ABG
VAP prevention protocol
Nebulizers continue
Precedex and fentanyl for comfort
Chest x-ray 06/26/2024-tip of feeding tube in the stomach
PFTs January 2024 summarized below-moderate obstruction with significant BD response and moderate reduction in diffusing capacity
Cultures reviewed
Legionella and streptococcal antigen negative, MRSA screen negative
Influenza A+
Sputum culture-many WBCs, rare gram-positive cocci
Empiric antibiotics-vancomycin and Zosyn initiated
Tamiflu continues
Monitor leukocytosis-chronically elevated though significantly decreased since admission
Decrease IV fluids
Lactate trended-now normal
Pressors-norepinephrine for now
Monitor renal function-nephrology evaluation if renal function does not improve
Monitor heart rhythm
Chronic anticoagulation on Eliquis
Amiodarone continues as well
Monitor blood sugar
Insulin supplementation as needed
Follow hemoglobin
Transfuse if needed
Monitor liver functions
DVT prophylaxis-on Eliquis
GI prophylaxis while on the ventilator and hypotensive-pantoprazole
Patient last seen in the pulmonary office-Dr. Wolf 05/19/2024
Critical care statement: A total of 40 minutes of critical care time was provided for this patient today. This includes management of unstable vital signs, evaluation of the patient at bedside, reviewing the patient's pertinent medical records
including radiographs, management of ventilator, spontaneous breathing trial, pressor management, microbiology, laboratory evaluations, and discussion with primary team, consultants, pharmacy, nutrition, physical therapy, case management, charge
nurse, critical care nursing, and respiratory therapy.
Diagnostic data:
Chest x-ray 01/28/2024-NAD
CT chest 02/14/24-postoperative changes, 7 mm solid nodule right lower lobe
CT chest 06/19/2024-stable [address] chest 06/25/2024-ET tube 1 cm above mohsen, bilateral pneumonia
CT chest PE study 07/21/2023: No PE. Findings consistent with CHF and moderate pulmonary interstitial edema. Superimposed pneumonia in the lower lobes not definitely excluded.� New area of lung herniation involving the lingula.
09/21/2023-� CXR-� Patchy airspace opacities in the mid to lower lung and lower right lung concerning for pneumonia.� No pleural effusion.��
09/23/2023-� CXR- interval improvement in the patchy bilateral airspace disease.
CXR 01/28/2024: No acute disease
CT chest 02/14/24: Postoperative changes bilateral upper lobectomies with mosaic attenuation of the lungs which is nonspecific however can be infectious/inflammatory or seen with mild interstitial edema.� 7 mm solid nodule within the posterior right
lower lobe, follow-up recommended.CXR 03/07/2024: Bilateral airspace filling may be due to pulmonary edema but infiltrative other etiology such as inflection/inflammatory not excluded. Cardiomegaly.� Bilateral hilar prominence may represent central
pulmonary vascular congestion or pulmonary hypertension.
CT chest 03/07/2024: Bilateral lung hazy paving airspace filling with thickening of secondary lobules and dependent consolidation may be due to pulmonary edema, acute respiratory distress syndrome, bacterial pneumonia, acute interstitial pneumonia
or pulmonary alveolar proteinosis.� Fluid within the esophagus to the thoracic inlet may be due to reflux or esophageal dysmotility.� Dependent secretions within the trachea.
Echocardiogram 09/12/2023-EF 50-55%, stage II diastolic dysfunction, moderate to severe mitral regurgitation, PA systolic 58
Cardiac catheterization 06/2022-� Cath- chronic occlusion of the RCA with diffuse atherosclerosis.� 3-4+ MR with severely dilatted left atrium and severe posterior basal hypokinesis.�
PFT 02/07/2024-FEV1 1.75-75%, FVC 2.96-96%, ratio 59%, significant BD response, TLC 89%, RV 80%, DLCO 30%, DLCO/VA 45%
Subjective Dataa
Subjective Data
Date of Service:
Date of Service: June 27, 2024
Chief Complaint: Operation Agent Follow Up and Pulmonary Follow Up
Subjective:
Alert on the ventilator, no increased secretions, some agitation, complaining of difficulties breathing, saturations are 100%, no chest pain or abdominal pain
Review of Systems
General: Other (Per HPI)
Objective Data
Data Reviewed
Vital Signs / I&O / Oxygen:
Vital Signs
Temp Pulse Resp BP Pulse Ox
101.6 F H 70 18 103/46 100
06/27/24 03:41 06/27/24 05:30 06/27/24 05:30 06/27/24 05:30 06/27/24 05:30
Intake and Output
06/26/24 06/27/24 06/28/24
06:59 06:59 06:59
Intake Total 1142.9 / 1175.6 1522.8 / 1522.8
Output Total 302 / 302 735 / 735
Balance 840.9 / 873.6 787.8 / 787.8
SaO2 [ASV] 100
SaO2 [A/C] 100
SaO2 [PRVC] 100
SaO2 100
Nasal Cannula flow liters per 2
minute
Physical Exam
General: Respiratory Distress (n) and Comfortable
HEENT: Normocephalic, Anicteric and Moist Mucous Membranes
Cardiovascular: Regular Rhythm and Murmur
Respiratory: Clear (Diminished breath sounds and prolonged expiratory time), Wheeze (n), Crackles (Rare basilar), Rhonchi (n), Non-Labored Respirations, Accessory Resp Muscle Use (n), Stridor (n) and ET Tube
GI: Soft, Non Distended and Non Tender
Neurology: Awake, Alert and No Motor Deficits
Skin: Warm, Good Color, Cyanosis (n), Jaundice (n) and Rash (n)
Labs/Micro/Reports
Lab Data
06/27/24 04:22
06/27/24 04:22
Microbiology
06/25/24 20:08 Sputum Gram Stain - Preliminary
06/25/24 20:10 Nose Nasal Screen MRSA (PCR) - Final
MRSA not detected - performed by PCR methodology.
06/26/24 00:29 Urine Legionella Urinary Antigen - Final
Negative for Legionella pneumophila Serogroup 1 antigen.
A negative result does not rule out the possiblity of
Legionella infection due to other serogroups or species of
Legionella. Clinical correlation is recommended.
06/26/24 00:29 Urine Streptococcus pneumoniae Antigen (M - Final
Negative for Streptococcus pneumoniae antigen.
A negative result does not exclude infection with
Streptococcus pneumoniae. Clinical correlation is
recommended.
06/24/24 21:28 Nasal Swab Influenza Types A & B (MELANIE) - Final
Influenza A Positive, NAAT
[2024-06-27] MEDS: DUONEB 3 ML INH ×4 (07:27→20:49)
--- NOTE | 2024-06-27 08:26 | PTOTSP ---
Patient transferred to ICU and is now intubated, PT orders not continued upon transfer. Please place updated PT orders when appropriate to resume therapy services. Thank you.
[2024-06-27] MEDS: NSS (PRESERVATIVE FREE) 10 ML IV (08:49)
[2024-06-27] MEDS: PACERONE 200 MG TUBE (08:49)
[2024-06-27] MEDS: PROTONIX IV 40 MG IV (08:49)
--- NOTE | 2024-06-27 08:59 | PTCARENOTE ---
assumed care 0700. patient in bed intubated; Fentanyl 10mcg. Levophed 2 mcg, Precedex 1.4/20.4; Intubated RT 23 cm . Vent ASV 90% +5/40% Peak 11 VT 878 RR 9 ; Fentanyl off indwelling cartwright draining clear yellow urine 75/hr
[2024-06-27] MEDS: PRECEDEX 100 IV (11:18)
[2024-06-27 12:07] LABS: Glucose - Point of Care 163 mg/dl (70-99)
--- NOTE | 2024-06-27 12:17 | W.PN.HOSP.TC ---
Today's Communication/Plan
-
Assessment / Plan
Assessment / Plan
Acute hypoxemic/hypercapnic respiratory failure requiring intubation along with a respiratory acidosis
Suspect primary cause of respiratory distress likely mucous plugging or worsening pneumonia
-Intubated
-Daily SAT SBT, sedation per ICU, GI prophylaxis
-Mechanical ventilator settings per ICU however with use low tidal volumes
-PF ratio greater than 300 therefore low clinical suspicion for ARDS
-IV antibiotics vancomycin and Zosyn
-Continue Tamiflu
-MDIs
Fever
Could be related to flu versus Precedex
Likely will need to wean Precedex and initiate different sedative
If continues to have fevers we will need to obtain repeat blood cultures and broaden antibiotic ID consultation
Shock circulatory/medication induced versus septic in the setting of flu
-Wean pressors as tolerated
-Follow-up blood cultures
-Wean medications that could potentially cause hypotension such as propofol as tolerated
-Maintain MAP greater than 65
-Continue vancomycin and Zosyn
-Continue Tamiflu
MICHAEL on CKD 3
-MICHAEL component resolved
-Likely at baseline as unchanged in 2 days
-Hold diuretics for now
Heart failure with recovered EF, appears compensated at this time, Lasix being held, would be in favor to resume in the next 24 hours
CAD
Continue Zetia and statin along with beta-blockade
On apixaban
Paroxysmal atrial fibrillation in sinus rhythm on amiodarone and Eliquis beta-blockade
GERD Husain's esophagus
Continue PPIs twice daily
History of lung CVA outpatient follow-up
Anticipated Discharge: > 48 hours
Subjective/Interval History
-
Date of Service: June 27, 2024
Seen and examined. Communicated him with writing. Very hard of hearing.
Objective Data
-
Labs:
Laboratory Results
06/27/24 06/27/24
04:22 11:59
WBC 19.0 H
Hgb 8.5 L
Hct 27.8 L
Plt Count 403 H
HCO3 Pending
Sodium 135
Potassium 4.4
Chloride 107
Carbon Dioxide 19 L
BUN 25 H
Creatinine 1.3 H
Glucose 123 H
Calcium 7.9 L
Vital Signs:
Vital Signs
Temp Pulse Resp BP Pulse Ox
100.5 F H 86 14 123/64 100
06/27/24 12:06 06/27/24 11:36 06/27/24 11:36 06/27/24 08:49 06/27/24 11:36
I&O
06/26/24 06/27/24 06/28/24
06:59 06:59 06:59
Intake Total 1142.9 / 1175.6 1522.8 / 1618.2 190.8 / 190.8
Output Total 302 / 302 735 / 810 150 / 150
Balance 840.9 / 873.6 787.8 / 808.2 40.8 / 40.8
[2024-06-27 12:24] LABS: HCO3 19.2 mmol/L (21-28); O2 Saturation % 99.8 % (94-98); PCO2 29 mmHg (32-35); PO2 200 mmHg (83-108); pH 7.43 (7.35-7.45)
--- NOTE | 2024-06-27 13:01 | RESPNOTE ---
Respiratory: patient extubated @1255 no stridor no wheeze. SpO2 97% on 3 LPM nasal cannula.
--- NOTE | 2024-06-27 13:12 | PTCARENOTE ---
pt on weaning trial. ABG resulted pt extubated 13:0 to 3L of oxygen
--- NOTE | 2024-06-27 15:49 | PTCARENOTE ---
patient transfer to chair one person minimum assist. On 3 L of oxygen POX 96% Occasional moist non productive cough. No SOB. Evaluated by ST reina for Puree diet with thin liquid
--- NOTE | 2024-06-27 15:52 | PTOTSP ---
Speech Therapy Evaluation:
Pt presents with clinical signs of oropharyngeal dysphagia, likely chronic in nature related to hx of lung cancer s/p b/l upper lobectomies, GERD with Husain's esophagus, and COPD, compounded by compromised respiratory status in the setting of
Flu/PNA and recent intubation/extubation (06/25-06/27). Pt previously evaluated ST in September of 2023 with recommendations to continue regular/thin liquid diet, though with consideration for VSE given recurrent PNAs at that time. On this date, extensive
PO trials provided at bedside, in which pt demonstrated adequate oral phase and no overt s/sx of aspiration. Pt passed 3oz swallow screen, though cannot rule out silent aspiration at bedside, especially given CXR with opacity in RLL
Recommend:
1. Initiate CAUTIOUS IDDSI level 4 (puree) and thin liquid diet
2. Medications as tolerated
3. STRICT aspiration and reflux precautions with 1:1 SPV
4. d/c oral diet if pt demonstrating worsening in respiratory status, worsening in chest imaging, or demonstrating s/sx of aspiration at bedside
5. CENTRAL SUPPLY NURSE to closely follow to monitor tolerance of current diet, determine need for further diet modifications/advancements, and determine if instrumental assessment warranted
[2024-06-27] MEDS: NOVOLOG FLEXPEN-LOW RESISTANCE SC (16:58)
[2024-06-27 17:05] LABS: Glucose - Point of Care 130 mg/dl (70-99)
--- NOTE | 2024-06-27 20:14 | PTCARENOTE ---
Assumed care of pt. approx 1900.
Pt. extubated by day team wMamadouo reported issues.
Now on RA, maintaining own airway.
Off all sedation, and vasopressor support.
Vomiting, antiemetic given per order set, EKG completed to confirm QT status.
Offers no complaints at this time.
Unable to assess volume status as no prior documentation regarding I/O tracked from prior team.
[2024-06-27] MEDS: ZOFRAN 4 MG IV (20:36)
[2024-06-27 21:53] LABS: Glucose - Point of Care 95 mg/dl (70-99)
[2024-06-27] MEDS: LIPITOR TUBE (22:50)
[2024-06-27] MEDS: PROZAC TUBE (22:50)
[2024-06-27] MEDS: TAMIFLU TUBE (22:50)
[2024-06-28] VITALS (23 sets, daily range): BP systolic 91–141; BP diastolic 52–105; PULSE 78; O2SAT 99; BMI 22.2; BMI 18.1
--- NOTE | 2024-06-28 00:03 | PTCARENOTE ---
No change in pt. assessment. Vomitting subsided, however N persists.
[2024-06-28] MEDS: ZOSYN 50 IV ×4 (02:41→20:59)
--- NOTE | 2024-06-28 03:57 | PTCARENOTE ---
Pollard removed due to excessive leaking, unable to troubleshoot.
Febrile, Offirmev orderded.
Nausea persisting, vomiting subsided.
[2024-06-28] MEDS: OFIRMEV 100 IV (04:03)
[2024-06-28 04:51] LABS: Hematocrit 26.1 % (37.0-47.0); Hemoglobin 7.9 g/dL (12.0-16.0); Mean Corp Hgb Conc. 30.3 g/dL (33.0-37.0); Mean Corpuscular Volume 79.3 fL (81.0-99.0); Platelet Count 352 10^3/uL (130-400); Red Blood Cell Count 3.29 10^6/uL (4.20-5.40); Red Cell Dist. Width 24.1 % (11.5-14.5); White Blood Cell Count 15.9 10^3/uL (4.8-10.8)
[2024-06-28 05:13] LABS: Blood Urea Nitrogen 23 mg/dl (7-17); Calcium 7.8 mg/dl (8.4-10.2); Carbon Dioxide 20 mmol/L (22-30); Chloride 105 mmol/L (98-107); Estimated Creatinine Clearance 38 ml/min; Glucose 80 mg/dl (70-99); Magnesium 1.9 mg/dl (1.6-2.3); Potassium 4.4 mmol/L (3.5-5.1); Sodium 133 mmol/L (135-145); Triglycerides 131 mg/dl (10-149)
[2024-06-28] MEDS: DUONEB 3 ML INH ×4 (07:05→19:52)
--- NOTE | 2024-06-28 07:31 | W.PN.INTV ---
Today's Communication / Plan
Recommendations
Tolerated extubation
Wean FiO2
Increase mucolytics
Mucus clearing devices
Wean norepinephrine
Antibiotics
Tamiflu
If able to be weaned off pressors then transfer out of ICU-pulmonary will continue to follow
Assessment
-
69-year-old former smoking female with a history of underlying lung cancer/resection 11 and again 7 years ago, hypertension, CAD, carotid disease, polycythemia vera, bladder cancer, chronic kidney disease, GI bleed, presented with nausea vomiting
and diarrhea who subsequently developed chest congestion and shortness of breath eventually necessitating intubation-nut cracker consulted for ventilator/critical care management 06/26/2024.
Respiratory decompensation requiring intubation
Intubated 06/26/2024
Extubated 06/27/2024
Influenza A
Sepsis
MICHAEL
Pelvic pain status post fall
Leukocytosis-chronic with JAK2 positive P vera
Anemia-microcytic
Thrombocytosis
Mild hyponatremia
Hyperglycemia
Transaminitis
Conditions present prior to admission:
Lung cfbnwp-thgimyaxl-hrdx resection 11 years ago and then 7 years ago-followed at [facility]
Former [id number]-70-pdom-year quit 1998
Hypertension.
CAD/stents.
Carotid disease.
JAK2 positive P vera with chronic leukocytosis and thrombocytosis.
Bladder cancer/TURBT 2022.
PAF.
CHF-reduced EF-recently improved from 30% to 50-55%
Chronic kidney disease stage III.
Mitral regurgitation. Anxiety. Depression. GI bleed. Right femur ORIF. Appendectomy. x 2. Left upper lobectomy. Right upper lobectomy. Right radial pseudoaneurysm repair. Cochlear implant.
Plan
Tolerated extubation
Wean supplemental oxygen
Mucolytic's
Mucus clearing devices
DuoNebs continue
Follow occasional chest x-ray
Aspiration precautions
PFTs January 2024 summarized below-moderate obstruction with significant BD response and moderate reduction in diffusing capacity
Cultures reviewed
Legionella and streptococcal antigen negative, MRSA screen negative
Influenza A+
Sputum culture-many WBCs, rare gram-positive cocci
Empiric antibiotics-vancomycin and Zosyn initiated-vancomycin discontinued
Tamiflu continues per protocol
Monitor leukocytosis-chronically elevated though significantly decreased since admission
Decrease IV fluids
Increase oral uptake with aspiration precautions
Lactate trended-now normal
Pressors-norepinephrine wean
Monitor renal function-nephrology evaluation if renal function does not improve
Monitor heart rhythm
Chronic anticoagulation on Eliquis
Amiodarone continues as well
Follow blood sugar
Insulin supplementation as needed
Follow hemoglobin-now 7.8 from 9.3
Transfuse if needed
Monitor liver functions
DVT prophylaxis-on Eliquis
GI prophylaxis while on the ventilator and hypotensive-pantoprazole
If able to be weaned off norepinephrine then transfer out of ICU-pulmonary will continue to follow
Patient last seen in the pulmonary office-Dr. Wolf 05/19/2024
Critical care statement: A total of 38 minutes of critical care time was provided for this patient today. This includes management of unstable vital signs, evaluation of the patient at bedside, reviewing the patient's pertinent medical records
including radiographs, pressor management, respiratory failure management microbiology, laboratory evaluations, and discussion with primary team, consultants, pharmacy, nutrition, physical therapy, case management, charge nurse, critical care
nursing, and respiratory therapy.
Diagnostic data:
Chest x-ray 01/28/2024-NAD
CT chest 02/14/24-postoperative changes, 7 mm solid nodule right lower lobe
CT chest 06/19/2024-stable [address] chest 06/25/2024-ET tube 1 cm above mohsen, bilateral pneumonia
Chest x-ray 06/26/2024-tip of feeding tube in the stomach
CT chest PE study 07/21/2023: No PE. Findings consistent with CHF and moderate pulmonary interstitial edema. Superimposed pneumonia in the lower lobes not definitely excluded.� New area of lung herniation involving the lingula.
09/21/2023-� CXR-� Patchy airspace opacities in the mid to lower lung and lower right lung concerning for pneumonia.� No pleural effusion.��
09/23/2023-� CXR- interval improvement in the patchy bilateral airspace disease.
CXR 01/28/2024: No acute disease
CT chest 02/14/24: Postoperative changes bilateral upper lobectomies with mosaic attenuation of the lungs which is nonspecific however can be infectious/inflammatory or seen with mild interstitial edema.� 7 mm solid nodule within the posterior right
lower lobe, follow-up recommended.CXR 03/07/2024: Bilateral airspace filling may be due to pulmonary edema but infiltrative other etiology such as inflection/inflammatory not excluded. Cardiomegaly.� Bilateral hilar prominence may represent central
pulmonary vascular congestion or pulmonary hypertension.
CT chest 03/07/2024: Bilateral lung hazy paving airspace filling with thickening of secondary lobules and dependent consolidation may be due to pulmonary edema, acute respiratory distress syndrome, bacterial pneumonia, acute interstitial pneumonia
or pulmonary alveolar proteinosis.� Fluid within the esophagus to the thoracic inlet may be due to reflux or esophageal dysmotility.� Dependent secretions within the trachea.
Echocardiogram 09/12/2023-EF 50-55%, stage II diastolic dysfunction, moderate to severe mitral regurgitation, PA systolic 58
Cardiac catheterization 06/2022-� Cath- chronic occlusion of the RCA with diffuse atherosclerosis.� 3-4+ MR with severely dilatted left atrium and severe posterior basal hypokinesis.�
PFT 02/07/2024-FEV1 1.75-75%, FVC 2.96-96%, ratio 59%, significant BD response, TLC 89%, RV 80%, DLCO 30%, DLCO/VA 45%
Subjective Dataa
Subjective Data
Date of Service:
Date of Service: June 28, 2024
Chief Complaint: Patent Chemist Follow Up and Pulmonary Follow Up
Subjective:
Tolerated extubation, still complaining of some shortness of breath, some chest congestion, minimal productive cough, no chest pain or abdominal pain, 'hungry as always'
Review of Systems
General: Other (Per HPI)
Objective Data
Data Reviewed
Vital Signs / I&O / Oxygen:
Vital Signs
Temp Pulse Resp BP Pulse Ox
98.7 F 90 18 91/56 98
06/28/24 07:00 06/28/24 07:06 06/28/24 07:06 06/28/24 06:00 06/28/24 07:06
Intake and Output
06/27/24 06/28/24 06/29/24
06:59 06:59 06:59
Intake Total 1522.8 / 1618.2 700.8 / 700.8
Output Total 735 / 810 1200 / 1200
Balance 787.8 / 808.2 -499.2 / -499.2
SaO2 [ASV] 100
SaO2 [A/C] 100
SaO2 [PRVC] 100
SaO2 98
Nasal Cannula flow liters per 2
minute
Physical Exam
General: Respiratory Distress (n) and Comfortable
HEENT: Normocephalic, Anicteric and Moist Mucous Membranes
Cardiovascular: Regular Rhythm and Murmur
Respiratory: Clear (Diminished breath sounds and prolonged expiratory time), Wheeze (n), Crackles (Rare basilar), Rhonchi (n), Non-Labored Respirations, Accessory Resp Muscle Use (n) and Stridor (n)
GI: Soft, Non Distended and Non Tender
Neurology: Awake, Alert and No Motor Deficits
Skin: Warm, Good Color, Cyanosis (n), Jaundice (n) and Rash (n)
Labs/Micro/Reports
Lab Data
06/28/24 04:09
06/28/24 04:09
Laboratory Results
06/27/24
11:59
pH 7.43
pCO2 29 L
pO2 200 H
HCO3 19.2 L
O2 Delivery Level
Microbiology
06/25/24 20:08 Sputum Respiratory Culture - Preliminary
Usual Respiratory Kristina
06/25/24 20:08 Sputum Gram Stain - Preliminary
06/25/24 20:10 Nose Nasal Screen MRSA (PCR) - Final
MRSA not detected - performed by PCR methodology.
06/26/24 00:29 Urine Legionella Urinary Antigen - Final
Negative for Legionella pneumophila Serogroup 1 antigen.
A negative result does not rule out the possiblity of
Legionella infection due to other serogroups or species of
Legionella. Clinical correlation is recommended.
06/26/24 00:29 Urine Streptococcus pneumoniae Antigen (M - Final
Negative for Streptococcus pneumoniae antigen.
A negative result does not exclude infection with
Streptococcus pneumoniae. Clinical correlation is
recommended.
[2024-06-28 07:53] LABS: Glucose - Point of Care 97 mg/dl (70-99)
[2024-06-28] MEDS: NOVOLOG FLEXPEN-LOW RESISTANCE SC ×3 (10:04→17:47)
[2024-06-28] MEDS: PACERONE 200 MG TUBE (10:05)
[2024-06-28] MEDS: PROTONIX IV 40 MG IV (10:05)
[2024-06-28] MEDS: NSS (PRESERVATIVE FREE) 10 ML IV (10:05)
--- NOTE | 2024-06-28 13:37 | W.PN.HOSP.TC ---
Addendum entered and electronically signed by Gray Dill MD 06/28/24 15:17:
right pibic bone fracture - nondisplaced
-ortho to see
-as nondisplaced, likely not an operative canditate
-pt/ot continued
Original Note:
Today's Communication/Plan
-
Assessment / Plan
Assessment / Plan
NAD
Scleral Anicteric
MMM, NC comfortbale
No JVD
CTABL
RRR, S1/S2
Soft, NT, ND, BS+
Warm, Dry
AAOx3
Calm
Acute hypoxemic/hypercapnic respiratory failure requiring intubation along with a respiratory acidosis
Suspect primary cause of respiratory distress likely mucous plugging or worsening pneumonia
-s/p extubation on 06/27
-continue zosyn and tamiflu
-wean o2 as tolerated
-incentive [place]
-mucolytics
Fever
Could be related to flu versus Precedex
Likely will need to wean Precedex
If continues to have fevers we will need to obtain repeat blood cultures and broaden antibiotic ID consultation
Shock circulatory/medication induced versus septic in the setting of flu
-Wean off
-Wean medications that could potentially cause hypotension such as propofol as tolerated
-Maintain MAP greater than 65
-Continue vancomycin and Zosyn
-Continue Tamiflu
MICHAEL on CKD 3
-MICHAEL component resolved
-Likely at baseline as unchanged in 2 days
-Hold diuretics for now
Heart failure with recovered EF, appears compensated at this time, Lasix being held, would be in favor to resume in the next 24 hours
CAD
Continue Zetia and statin along with beta-blockade
On apixaban
Paroxysmal atrial fibrillation in sinus rhythm on amiodarone and Eliquis beta-blockade
GERD Husain's esophagus
Continue PPIs twice daily
History of lung CVA outpatient follow-up
downgrade to tele
Anticipated Discharge: 24 - 48 hours
Subjective/Interval History
-
Date of Service: June 28, 2024
seen and examined. no new complaints. no acute overnight events
Objective Data
-
Labs:
Laboratory Results
06/28/24
04:09
WBC 15.9 H
Hgb 7.9 L
Hct 26.1 L
Plt Count 352
Sodium 133 L
Potassium 4.4
Chloride 105
Carbon Dioxide 20 L
BUN 23 H
Creatinine 1.2 H
Glucose 80
Calcium 7.8 L
Vital Signs:
Vital Signs
Temp Pulse Resp BP Pulse Ox
98.9 F 86 16 106/59 95
06/28/24 11:00 06/28/24 12:24 06/28/24 12:24 06/28/24 10:05 06/28/24 12:24
I&O
06/27/24 06/28/24 06/29/24
06:59 06:59 06:59
Intake Total 1522.8 / 1618.2 700.8 / 700.8
Output Total 735 / 810 1200 / 1200
Balance 787.8 / 808.2 -499.2 / -499.2
[2024-06-28] MEDS: TYLENOL ORAL SOLUTION 650 MG TUBE ×2 (13:54→21:56)
--- NOTE | 2024-06-28 14:16 | PTCARENOTE ---
Patient received this am at 0700 in bed . AAO x3 Hearing difficulties has ear implant RT side.
SR on a telemetry VSs afebrile.
2L via nasal cannula. occasional moist non-productive cough. No SOB . Lungs course b/l
Vomited over night . continue to c/o of nausea . Able to tolerate clear liquid diet . Hypoactive bowel sound b/l
Voiding without difficulties
left peripheral line flushed capped
Transfer out of bed supervision . IS encouraged
--- NOTE | 2024-06-28 15:53 | CON.ORTHO ---
Consultation
-
Date/Time Consultation Requested: Jul 07
Date/Time Consultation Performed: Jul 07
Requesting Provider: Fuentes
Performing Provider: Enrrique Peterson
Reason for Consultation: Right hemipelvis Fracture
Consultation - Orthopedics
History
History of Present Illness:
69-year-old female with a past medical history of hypertension, hyperlipidemia, CAD, CHF, atrial fibrillation on Eliquis, lung cancer status post left upper lobectomy, deafness with cochlear implants, emphysema/COPD who presents to the emergency
department with her daughter for evaluation of right hip and groin pain after a fall back on Jul 07; she also complains of cough. Regarding her fall: Patient reports that yesterday afternoon she tripped on a power cord and fell onto her right
hip. She did not hit her head or lose consciousness. No prodrome. She says she has had pain in her right hip and right groin since the fall particularly with weightbearing. She has been able to get around with a walker she says. She reports a
past history of hip fracture requiring christine and 'other hardware.' Regarding cough: She reports for the past few days she has had cough productive of clear phlegm. She reports that during coughing fits she has some trouble breathing but does not have
any consistent shortness of breath. Denies any chest pain. She denies any fevers or chills. She does note she has had some loose stools/diarrhea but denies any other complaints. Work-up and treatment has been ongoing, requiring intubation. Xrays
of the right hip/pelvis back on Jul 07 did reveal, what appeared to be, a nondisplaced right pubic rami fracture. Not being the most pressing medical issue, consult has just been placed by Dr. Dill, as the patient has been extubated and
tolerating well.
Past History
ED Past Medical History: Arrhythmia (A fib), Cancer (Bladder cancer lung cancer), HTN and Hypercholesterolemia
ED Past Surgical History: Appendectomy, Cardiac (Stent), (X 2) and Other (Bilateral upper lung lobectomy)
Social History
Tobacco: Former smoker
Alcohol: None
Drug: Marijuana
Personal:
Living: alone
Employment: Other
Family History
Family History: Other
Review of Systems
12 point reviewed and negative except as documented in HPI
Allergies / Home Medications
Allergy/AdvReac Type Severity Reaction Status Date / Time
pollen extracts Allergy runny Verified 04/22/24 07:18
nose,itchy
eyes
�Medication �Instructions �Recorded
atorvastatin 80 mg tablet (Lipitor) 80 mg PO HS High cholesterol 04/07/22
ezetimibe 10 mg tablet (Zetia) 10 mg PO HS High cholesterol 04/07/22
fluoxetine 20 mg capsule (Prozac) 20 mg PO HS Mental Health 04/07/22
empagliflozin 10 mg tablet 10 mg PO DAILY heart protection 02/18/23
(Jardiance)
furosemide 20 mg tablet 20 mg PO DAILY Fluid 07/22/23
Retention/Swelling
amiodarone 200 mg tablet 200 mg PO DAILY Arrhythmia 09/21/23
acetaminophen 325 mg tablet 650 mg PO TID Pain 01/28/24
(Tylenol)
apixaban 2.5 mg tablet (Eliquis) 2.5 mg PO BID #60 tabs 01/31/24
vibegron 75 mg tablet (Gemtesa) 75 mg PO DAILY Urinary Issue 04/22/24
vsfeygjzl-CIX-LW-acetaminophen 7.5 15 ml PO HSPRN PRN sleep 06/25/24
mg-60 gd-23ce-1066pg/30mL oral liqd
metoprolol succinate 25 mg 12.5 mg PO BID Heart Failure 06/25/24
tablet,extended release 24 hr
(Toprol XL)
therapeutic multivitamin 1 tab PO DAILY Supplement 06/25/24
umeclidinium 62.5 mcg-vilanterol 1 inh inhalation R DAILY 06/25/24
25 mcg/actuation powdr for Lung/Breathing Issues
inhalation (Anoro Ellipta)
Vital Signs / Lab Results
Temp Pulse Resp BP Pulse Ox
98.9 F 84 18 120/105 95
06/28/24 11:00 06/28/24 15:46 06/28/24 15:46 06/28/24 14:00 06/28/24 15:46
06/28/24 04:09
06/28/24 04:09
Assessment / Plan
PE: Afeb. Patient comfortable in bed. Pleasantly conversational. Right hip skin intact. Scars noted laterally of the hip and right knee from previous ORIF procedures. Mild pain about the right sided pelvis. Mildly positive pelvic compression right
sided. Negative logroll RLE. No pain about the right hip. Knee nontender. Calf soft, nontender. DNVI RLE
Xrays: Findings consistent with nondisplaced right pubic rami Fx
Pervious nail fixation of right femur fracture noted. No evidence of complication
Plate and screw fixation noted of the proximal tibia without evidence of complication
Impression: Right sided hemipelvis fracture
Plan: Lengthy discussion with the patient bedside. Hopeful she is stepped down from the ICU. Fortunately her fracture can be managed nonoperatively. May be WBAT B/L LEs on walker/assistance. PT/OT while admitted. Pain control. Understands fracture
will take 6-8 weeks to consolidate. Recommend outpatient Ortho follow-up in 4 weeks for clinical check and to recheck some xrays. Orthopaedics to sign off for now. Please reengage with any additional pertinent questions during her admission as
necessary.
[2024-06-28 17:08] LABS: Glucose - Point of Care 108 mg/dl (70-99)
[2024-06-28] MEDS: MUCINEX 1200 MG PO (20:31)
[2024-06-28] MEDS: PROZAC 20 MG TUBE (20:31)
[2024-06-28] MEDS: LIPITOR 80 MG TUBE (20:32)
[2024-06-28] MEDS: TAMIFLU 30 MG TUBE (21:56)
[2024-06-28 22:09] LABS: Glucose - Point of Care 125 mg/dl (70-99)
[2024-06-29] MEDS: ZOSYN 50 IV ×4 (02:52→21:01)
[2024-06-29 03:00] VITALS: BP 122/71
[2024-06-29 06:00] VITALS: BMI 21.5
[2024-06-29] MEDS: DUONEB 3 ML INH ×4 (07:17→19:29)
[2024-06-29 07:18] LABS: Glucose - Point of Care 88 mg/dl (70-99)
[2024-06-29 07:25] VITALS: BP 114/65
[2024-06-29] MEDS: MIRALAX 17 GRAMS PO (07:43)
[2024-06-29] MEDS: NSS (PRESERVATIVE FREE) 10 ML IV (07:43)
[2024-06-29] MEDS: PACERONE 200 MG PO (07:44)
[2024-06-29] MEDS: MUCINEX 1200 MG PO ×2 (07:45→21:01)
[2024-06-29] MEDS: NOVOLOG FLEXPEN-LOW RESISTANCE SC ×2 (07:48→12:34)
[2024-06-29] MEDS: PROTONIX IV 40 MG IV (07:50)
[2024-06-29] MEDS: TYLENOL ORAL SOLUTION 650 MG PO ×2 (08:03→15:36)
--- NOTE | 2024-06-29 09:49 | W.PN.HOSP.TC ---
Today's Communication/Plan
-
Lasix 40mg IV x 1 ; monitor response
continue Tamiflu
continue IV Zosyn
repeat Hg this afternoon, if stable then resume Eliquis
Assessment / Plan
Assessment / Plan
Acute hypoxemic/hypercapnic respiratory failure requiring intubation along with a respiratory acidosis
Suspect primary cause of respiratory distress likely mucous plugging or worsening pneumonia
-s/p extubation on 06/27
-continue zosyn and tamiflu. Day 4
-wean o2 as tolerated
-incentive katiuska
-mucolytics
Fevers
-afebrile over 24 hours
-CTM
Shock circulatory/medication induced versus septic in the setting of flu
-propofol off
-bP better
MICHAEL on CKD 3
-MICHAEL component resolved
-Likely at baseline as unchanged in 2 days
-Hold diuretics for now
Heart failure with recovered EF, acute exacerbation
-patient with weight gain and JVP
-lasix 40mg IV x 1 now, monitor response
CAD
Continue Zetia and statin along with beta-blockade
repeat Hg this afternoon and resume Eliquis if stable
Paroxysmal atrial fibrillation in sinus rhythm on amiodarone, b-chau
-resume Eliquis later today if Hg stable
GERD Husain's esophagus
Continue PPIs twice daily
History of lung CVA outpatient follow-up
downgrade to tele
Anticipated Discharge: 24 - 48 hours
Subjective/Interval History
-
Date of Service: June 29, 2024
short of breath when walking to the bathroom, + weight gain
Objective Data
-
Vital Signs:
Vital Signs
Temp Pulse Resp BP Pulse Ox
98.3 F 82 16 114/65 94
06/29/24 07:25 06/29/24 07:44 06/29/24 07:27 06/29/24 07:44 06/29/24 07:27
I&O
06/28/24 06/29/24 06/30/24
06:59 06:59 06:59
Intake Total 700.8 / 700.8 960 / 960
Output Total 1200 / 1200 600 / 600
Balance -499.2 / -499.2 360 / 360
Review of Systems
-
History Source: Patient
All other systems: Reviewed and negative
Physical Exam
-
General: Other (mildly tachypneic )
HEENT: Normocephalic
Respiratory: Negative Wheezes
Cardiac: S1/S2
GI: Soft and Nontender
Musculoskeletal: No Clubbing, No Cyanosis and No Edema
Skin: Warm
Neuro: Awake, Alert, Oriented and AO x 3
Psych: Calm
Data Reviewed
-
Diagnostic Radiology: Report Reviewed by me
Labs: Labs Reviewed by me
--- NOTE | 2024-06-29 10:00 | W.PN.PUL.V3 ---
Today's Communication / Plan
-
Wean oxygen
Increase activity
Continue nebulizers
Final course of antibiotics
Mucolytic's and mucus clearing devices
Assessment
-
69-year-old former smoking female with a history of underlying lung cancer/resection 11 and again 7 years ago, hypertension, CAD, carotid disease, polycythemia vera, bladder cancer, chronic kidney disease, GI bleed, presented with nausea vomiting
and diarrhea who subsequently developed chest congestion and shortness of breath eventually necessitating intubation-lap runner consulted for ventilator/critical care management 06/26/2024.
Respiratory decompensation requiring intubation
Intubated 06/26/2024
Extubated 06/27/2024
Influenza A
Sepsis
MICHAEL
Pelvic pain status post fall
Leukocytosis-chronic with JAK2 positive P vera
Anemia-microcytic
Thrombocytosis
Mild hyponatremia
Hyperglycemia
Transaminitis
Conditions present prior to admission:
Lung ippsyi-bsxthzbcb-grgc resection 11 years ago and then 7 years ago-followed at [facility]
Former esnjdf-14-gzus-year quit 1998
Hypertension.
CAD/stents.
Carotid disease.
JAK2 positive P vera with chronic leukocytosis and thrombocytosis.
Bladder cancer/TURBT 2022.
PAF.
CHF-reduced EF-recently improved from 30% to 50-55%
Chronic kidney disease stage III.
Mitral regurgitation. Anxiety. Depression. GI bleed. Right femur ORIF. Appendectomy. x 2. Left upper lobectomy. Right upper lobectomy. Right radial pseudoaneurysm repair. Cochlear implant.
Plan
Respiratory status improved
Tolerated extubation a couple days ago
Wean supplemental oxygen
Assess discharge supplemental oxygen needs
Mucolytic's continues
Mucus clearing devices
DuoNebs continue
Follow occasional chest x-ray
Aspiration precautions
PFTs January 2024 summarized below-moderate obstruction with significant BD response and moderate reduction in diffusing capacity
Cultures reviewed
Legionella and streptococcal antigen negative, MRSA screen negative
Influenza A+
Sputum culture-many WBCs, rare gram-positive cocci
Empiric antibiotics-vancomycin and Zosyn initiated-vancomycin discontinued
Tamiflu continues per protocol
Monitor leukocytosis-chronically elevated though significantly decreased since admission
Decrease IV fluids
Increase oral uptake with aspiration precautions
Lactate trended-now normal
Pressors-norepinephrine wean
Monitor renal function-nephrology evaluation if renal function does not improve
Monitor heart rhythm
Chronic anticoagulation on Eliquis
Amiodarone continues as well
Follow blood sugar
Insulin supplementation as needed
Follow hemoglobin-now 7.9 and stable from 9.3
Transfuse if needed
Monitor liver functions-improved
DVT prophylaxis-on Eliquis
GI prophylaxis while on the ventilator and hypotensive-pantoprazole
Patient last seen in the pulmonary office-Dr. Wolf 05/19/2024
Diagnostic data:
Chest x-ray 01/28/2024-NAD
CT chest 02/14/24-postoperative changes, 7 mm solid nodule right lower lobe
CT chest 06/19/2024-stable [address] chest 06/25/2024-ET tube 1 cm above mohsen, bilateral pneumonia
Chest x-ray 06/26/2024-tip of feeding tube in the stomach
CT chest PE study 07/21/2023: No PE. Findings consistent with CHF and moderate pulmonary interstitial edema. Superimposed pneumonia in the lower lobes not definitely excluded.� New area of lung herniation involving the lingula.
09/21/2023-� CXR-� Patchy airspace opacities in the mid to lower lung and lower right lung concerning for pneumonia.� No pleural effusion.��
09/23/2023-� CXR- interval improvement in the patchy bilateral airspace disease.
CXR 01/28/2024: No acute disease
CT chest 02/14/24: Postoperative changes bilateral upper lobectomies with mosaic attenuation of the lungs which is nonspecific however can be infectious/inflammatory or seen with mild interstitial edema.� 7 mm solid nodule within the posterior right
lower lobe, follow-up recommended.CXR 03/07/2024: Bilateral airspace filling may be due to pulmonary edema but infiltrative other etiology such as inflection/inflammatory not excluded. Cardiomegaly.� Bilateral hilar prominence may represent central
pulmonary vascular congestion or pulmonary hypertension.
CT chest 03/07/2024: Bilateral lung hazy paving airspace filling with thickening of secondary lobules and dependent consolidation may be due to pulmonary edema, acute respiratory distress syndrome, bacterial pneumonia, acute interstitial pneumonia
or pulmonary alveolar proteinosis.� Fluid within the esophagus to the thoracic inlet may be due to reflux or esophageal dysmotility.� Dependent secretions within the trachea.
Echocardiogram 09/12/2023-EF 50-55%, stage II diastolic dysfunction, moderate to severe mitral regurgitation, PA systolic 58
Cardiac catheterization 06/2022-� Cath- chronic occlusion of the RCA with diffuse atherosclerosis.� 3-4+ MR with severely dilatted left atrium and severe posterior basal hypokinesis.�
PFT 02/07/2024-FEV1 1.75-75%, FVC 2.96-96%, ratio 59%, significant BD response, TLC 89%, RV 80%, DLCO 30%, DLCO/VA 45%
Subjective Data
-
Date of Service:
Date of Service: June 29, 2024
Chief Complaint: Pulmonary Follow Up and Dyspnea Follow Up
Subjective:
Still has productive cough, some shortness of breath, no chest pain or abdominal pain
Review of Systems
General: Other (Per HPI)
Objective Data
Data Reviewed
Vital Signs / I&O:
Vital Signs
Temp Pulse Resp BP Pulse Ox
98.3 F 82 16 114/65 94
06/29/24 07:25 06/29/24 07:44 06/29/24 07:27 06/29/24 07:44 06/29/24 07:27
Intake and Output
06/28/24 06/29/24 06/30/24
06:59 06:59 06:59
Intake Total 700.8 / 700.8 960 / 960
Output Total 1200 / 1200 600 / 600
Balance -499.2 / -499.2 360 / 360
SaO2: 94
Nasal Cannula flow liters per minute: 1
Physical Exam
General: Respiratory Distress (n) and Comfortable
HEENT: Anicteric and Moist Mucous Membranes
Cardiovascular: Regular Rhythm and Murmur
Respiratory: Wheeze (Forced expiratory), Crackles (Rare basilar) and Rhonchi (Expiratory)
GI: Soft, Non Distended and Non Tender
Neurology: Awake, Alert and No Motor Deficits
Skin: Warm, Good Color, Cyanosis, Jaundice (n) and Rash (n)
Labs/Micro/Reports
Lab Data
06/28/24 04:09
06/28/24 04:09
Microbiology
06/25/24 20:08 Sputum Respiratory Culture - Final
Usual Respiratory Kristina
06/25/24 20:08 Sputum Gram Stain - Final
06/25/24 20:10 Nose Nasal Screen MRSA (PCR) - Final
MRSA not detected - performed by PCR methodology.
06/26/24 00:29 Urine Legionella Urinary Antigen - Final
Negative for Legionella pneumophila Serogroup 1 antigen.
A negative result does not rule out the possiblity of
Legionella infection due to other serogroups or species of
Legionella. Clinical correlation is recommended.
06/26/24 00:29 Urine Streptococcus pneumoniae Antigen (M - Final
Negative for Streptococcus pneumoniae antigen.
A negative result does not exclude infection with
Streptococcus pneumoniae. Clinical correlation is
recommended.
[2024-06-29] MEDS: LASIX 40 MG IV (10:25)
[2024-06-29 11:38] VITALS: BP 117/68
[2024-06-29 12:03] LABS: Glucose - Point of Care 96 mg/dl (70-99)
[2024-06-29 14:28] LABS: Hemoglobin 8.6 g/dL (12.0-16.0)
[2024-06-29 15:30] VITALS: BP 109/50
--- NOTE | 2024-06-29 16:14 | CM ---
Met with patient to obtain information for assessment. Patient stated that she lives with her step daughter in a house that is split in to two different apartments with four steps to enter. She described herself as independent with her ADLs,
personal care, dressing and bathing. 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 She expressed no difficulty getting to her appointments or doing her shopping. She uses a walker to assist with her ambulation and a cane for short
distances. She stated that she had a hip fx and has the DME from that. She is currently on o2 but does not have o2 at home.
She has had VN in the past. She could not recall the agency.
Patient has been to SNF at [facility] in the past after hip sx.
Patient stated that she does not feel she will have any needs at time of discharge. Will watch for o2 needs.
Plan: Case management will continue to follow and assist with discharge planning. Patient would like to return home when stable.
[2024-06-29 16:50] LABS: Glucose - Point of Care 174 mg/dl (70-99)
[2024-06-29] MEDS: NOVOLOG FLEXPEN-LOW RESISTANCE 1 UNITS SC (18:28)
[2024-06-29 19:51] VITALS: BP 107/66
[2024-06-29] MEDS: PROZAC 20 MG PO (21:01)
[2024-06-29] MEDS: ELIQUIS 2.5 MG PO (21:01)
[2024-06-29] MEDS: LIPITOR 80 MG PO (21:02)
[2024-06-30] VITALS (9 sets, daily range): BP systolic 101–132; BP diastolic 59–73; PULSE 94; O2SAT 94; BMI 20.8
[2024-06-30] MEDS: ZOFRAN 4 MG IV ×2 (00:05→21:29)
[2024-06-30] MEDS: TYLENOL ORAL SOLUTION 650 MG PO ×3 (00:12→21:29)
[2024-06-30] MEDS: ROBITUSSIN 100 MG PO (00:26)
[2024-06-30] MEDS: MELATONIN 5 MG PO ×2 (00:27→21:29)
[2024-06-30] MEDS: MIRALAX 17 GRAMS PO (00:27)
[2024-06-30] MEDS: ZOSYN 50 IV ×4 (01:12→20:01)
[2024-06-30 07:14] LABS: Hematocrit 27.8 % (37.0-47.0); Hemoglobin 8.6 g/dL (12.0-16.0); Mean Corp Hgb Conc. 30.9 g/dL (33.0-37.0); Mean Corpuscular Hgb 24.9 pg (27.0-31.0); Mean Corpuscular Volume 80.3 fL (81.0-99.0); Mean Platelet Volume 10.9 fL (7.4-10.4); Platelet Count 402 10^3/uL (130-400); Red Blood Cell Count 3.46 10^6/uL (4.20-5.40); Red Cell Dist. Width 24.3 % (11.5-14.5)
[2024-06-30] MEDS: DUONEB 3 ML INH ×4 (07:19→20:07)
[2024-06-30 07:39] LABS: Blood Urea Nitrogen 16 mg/dl (7-17); Calcium 7.9 mg/dl (8.4-10.2); Carbon Dioxide 27 mmol/L (22-30); Chloride 103 mmol/L (98-107); Estimated Creatinine Clearance 35 ml/min; Glucose 106 mg/dl (70-99); Potassium 3.9 mmol/L (3.5-5.1); Sodium 137 mmol/L (135-145); eGFR 44.24
[2024-06-30 08:13] LABS: Glucose - Point of Care 110 mg/dl (70-99)
[2024-06-30] MEDS: NOVOLOG FLEXPEN-LOW RESISTANCE SC ×3 (08:25→16:00)
[2024-06-30] MEDS: ELIQUIS 2.5 MG PO ×2 (08:26→20:01)
[2024-06-30] MEDS: MUCINEX 1200 MG PO ×2 (08:27→20:01)
[2024-06-30] MEDS: MIRALAX PO ×2 (08:27→08:52)
[2024-06-30] MEDS: NSS (PRESERVATIVE FREE) 10 ML IV (08:28)
[2024-06-30] MEDS: PACERONE 200 MG PO (08:28)
[2024-06-30] MEDS: PROTONIX IV 40 MG IV (08:29)
--- NOTE | 2024-06-30 10:14 | W.PN.HOSP.TC ---
Today's Communication/Plan
-
IV Zosyn
treat constipation
LOAN TELLER oral lasix
PT/OT - F/U dispo recs
wean O2
possible DC tomorrow
Assessment / Plan
Assessment / Plan
Acute hypoxemic/hypercapnic respiratory failure requiring intubation along with a respiratory acidosis
Suspect primary cause of respiratory distress likely mucous plugging or worsening pneumonia
-s/p extubation on 06/27
-s/p Tamiflu; continue IV Zosyn (day 5)
-wean o2 as tolerated
-incentive katiuska
-mucolytics
Fevers
-afebrile over 24 hours
-CTM
Shock circulatory/medication induced versus septic in the setting of flu
-propofol off
-bP better
MICHAEL on CKD 3
-MICHAEL component resolved
-creatinine at baseline
-resume lasix
Pubic Ramus Fracture
-PT/OT
-PT recommending SNF versus home PT
Heart failure with recovered EF, acute exacerbation
-patient with weight gain and JVP seen 06/29
-s/p lasix 40mg IV x 1 now, resume oral lasix
CAD
Continue Zetia and statin along with beta-blockade
LOAN TELLER Eliquis resumed
Paroxysmal atrial fibrillation in sinus rhythm on amiodarone, b-chau
-LOAN TELLER Eliquis
GERD Husain's esophagus
Continue PPIs twice daily
History of lung CVA outpatient follow-up
downgrade to tele
Anticipated Discharge: 24 - 48 hours
Subjective/Interval History
-
Date of Service: June 30, 2024
feeling better
breathing improved
no chest pain
Objective Data
-
Labs:
Laboratory Results
06/30/24
06:44
WBC 19.0 H
Hgb 8.6 L
Hct 27.8 L
Plt Count 402 H
Sodium 137
Potassium 3.9
Chloride 103
Carbon Dioxide 27
BUN 16
Creatinine 1.3 H
Glucose 106 H
Calcium 7.9 L
Vital Signs:
Vital Signs
Temp Pulse Resp BP Pulse Ox
97.1 F 83 16 132/73 94
06/30/24 07:36 06/30/24 07:36 06/30/24 07:36 06/30/24 07:36 06/30/24 07:36
I&O
06/29/24 06/30/24 07/01/24
06:59 06:59 06:59
Intake Total 960 / 960 680 / 680
Output Total 600 / 600
Balance 360 / 360 680 / 680
Review of Systems
-
History Source: Patient
All other systems: Reviewed and negative
Physical Exam
-
General: No Apparent Distress
HEENT: Normocephalic
Respiratory: Negative Wheezes
Cardiac: S1/S2
GI: Soft and Nontender
Musculoskeletal: No Clubbing, No Cyanosis and No Edema
Skin: Warm
Neuro: Awake, Alert, Oriented and AO x 3
Psych: Calm
Data Reviewed
-
Diagnostic Radiology: Report Reviewed by me
Labs: Labs Reviewed by me
--- NOTE | 2024-06-30 10:39 | W.PN.PUL.V3 ---
Today's Communication / Plan
-
.
Increase activity.
Antibiotics.
Gentle diuresis.
Pulmonary will sign off
Assessment
-
69-year-old former smoking female with a history of underlying lung cancer/resection 11 and again 7 years ago, hypertension, CAD, carotid disease, polycythemia vera, bladder cancer, chronic kidney disease, GI bleed, presented with nausea vomiting
and diarrhea who subsequently developed chest congestion and shortness of breath eventually necessitating intubation-rating officer consulted for ventilator/critical care management 06/26/2024.
Respiratory decompensation requiring intubation
Intubated 06/26/2024
Extubated 06/27/2024
Influenza A
Sepsis
MICHAEL
Pelvic pain status post fall
Leukocytosis-chronic with JAK2 positive P vera
Anemia-microcytic
Thrombocytosis
Mild hyponatremia
Hyperglycemia
Transaminitis
Conditions present prior to admission:
Lung ofgalq-jceaujrlh-zrvw resection 11 years ago and then 7 years ago-followed at [facility]
Former [id number]-[id number]-year quit 1998
Hypertension.
CAD/stents.
Carotid disease.
JAK2 positive P vera with chronic leukocytosis and thrombocytosis.
Bladder cancer/TURBT 2022.
PAF.
CHF-reduced EF-recently improved from 30% to 50-55%
Chronic kidney disease stage III.
Mitral regurgitation. Anxiety. Depression. GI bleed. Right femur ORIF. Appendectomy. x 2. Left upper lobectomy. Right upper lobectomy. Right radial pseudoaneurysm repair. Cochlear implant.
Plan
Respiratory status slowly improving
Tolerated extubation several days ago
Wean supplemental oxygen-currently on room air-95% saturation
Assess discharge supplemental oxygen needs
Mucolytic's continues
Mucus clearing devices
DuoNebs continue
Follow occasional chest x-ray
Aspiration precautions
PFTs January 2024 summarized below-moderate obstruction with significant BD response and moderate reduction in diffusing capacity
Cultures reviewed
Legionella and streptococcal antigen negative, MRSA screen negative
Influenza A+
Sputum culture-many WBCs, rare gram-positive cocci
Empiric antibiotics-vancomycin and Zosyn initiated-vancomycin discontinued
Tamiflu continues per protocol
Monitor leukocytosis-chronically elevated though significantly decreased since admission
Gentle diuresis as tolerated.
Monitor intake/output, lower extremity edema, renal function and weight
Monitor heart rhythm
Chronic anticoagulation on Eliquis
Amiodarone continues as well
Follow blood sugar
Insulin supplementation as needed
Follow hemoglobin-now 7.9 and stable from 9.3
Transfuse if needed
Monitor liver functions-improved
DVT prophylaxis-on Eliquis
GI prophylaxis while on the ventilator and hypotensive-pantoprazole.
Respiratory status has stabilized-pulmonary will sign off-. Please call with questions
Patient last seen in the pulmonary office-Dr. Wolf 05/19/2024
Diagnostic data:
Chest x-ray 01/28/2024-NAD
CT chest 02/14/24-postoperative changes, 7 mm solid nodule right lower lobe
CT chest 06/19/2024-stable [address] chest 06/25/2024-ET tube 1 cm above mohsen, bilateral pneumonia
Chest x-ray 06/26/2024-tip of feeding tube in the stomach
CT chest PE study 07/21/2023: No PE. Findings consistent with CHF and moderate pulmonary interstitial edema. Superimposed pneumonia in the lower lobes not definitely excluded.� New area of lung herniation involving the lingula.
09/21/2023-� CXR-� Patchy airspace opacities in the mid to lower lung and lower right lung concerning for pneumonia.� No pleural effusion.��
09/23/2023-� CXR- interval improvement in the patchy bilateral airspace disease.
CXR 01/28/2024: No acute disease
CT chest 02/14/24: Postoperative changes bilateral upper lobectomies with mosaic attenuation of the lungs which is nonspecific however can be infectious/inflammatory or seen with mild interstitial edema.� 7 mm solid nodule within the posterior right
lower lobe, follow-up recommended.CXR 03/07/2024: Bilateral airspace filling may be due to pulmonary edema but infiltrative other etiology such as inflection/inflammatory not excluded. Cardiomegaly.� Bilateral hilar prominence may represent central
pulmonary vascular congestion or pulmonary hypertension.
CT chest 03/07/2024: Bilateral lung hazy paving airspace filling with thickening of secondary lobules and dependent consolidation may be due to pulmonary edema, acute respiratory distress syndrome, bacterial pneumonia, acute interstitial pneumonia
or pulmonary alveolar proteinosis.� Fluid within the esophagus to the thoracic inlet may be due to reflux or esophageal dysmotility.� Dependent secretions within the trachea.
Echocardiogram 09/12/2023-EF 50-55%, stage II diastolic dysfunction, moderate to severe mitral regurgitation, PA systolic 58
Cardiac catheterization 06/2022-� Cath- chronic occlusion of the RCA with diffuse atherosclerosis.� 3-4+ MR with severely dilatted left atrium and severe posterior basal hypokinesis.�
PFT 02/07/2024-FEV1 1.75-75%, FVC 2.96-96%, ratio 59%, significant BD response, TLC 89%, RV 80%, DLCO 30%, DLCO/VA 45%
Subjective Data
-
Date of Service:
Date of Service: June 30, 2024
Chief Complaint: Pulmonary Follow Up and Dyspnea Follow Up
Subjective:
Feels better, still some shortness of breath, still some chest congestion, overall, productive cough, decreased, no chest pain or abdominal pain
Review of Systems
General: Other (per HPI)
Objective Data
Data Reviewed
Vital Signs / I&O:
Vital Signs
Temp Pulse Resp BP Pulse Ox
97.1 F 83 16 132/73 94
06/30/24 07:36 06/30/24 07:36 06/30/24 07:36 06/30/24 07:36 06/30/24 07:36
Intake and Output
0206/30/24 07/01/24
06:59 06:59 06:59
Intake Total 960 / 960 680 / 680
Output Total 600 / 600
Balance 360 / 360 680 / 680
SaO2: 94
Nasal Cannula flow liters per minute: 1
Physical Exam
General: Respiratory Distress (n) and Comfortable
HEENT: Anicteric and Moist Mucous Membranes
Cardiovascular: Regular Rhythm and Murmur
Respiratory: Wheeze (Forced expiratory), Crackles (Rare basilar) and Rhonchi (Expiratory)
GI: Soft, Non Distended and Non Tender
Neurology: Awake, Alert and No Motor Deficits
Skin: Warm, Good Color, Cyanosis, Jaundice (n) and Rash (n)
Labs/Micro/Reports
Lab Data
06/30/24 06:44
06/30/24 06:44
Microbiology
06/25/24 20:08 Sputum Respiratory Culture - Final
Usual Respiratory Kristina
06/25/24 20:08 Sputum Gram Stain - Final
[2024-06-30] MEDS: FARXIGA 10 MG PO (11:12)
[2024-06-30] MEDS: LASIX 20 MG PO (11:12)
[2024-06-30 12:24] LABS: Glucose - Point of Care 108 mg/dl (70-99)
[2024-06-30 15:42] LABS: Glucose - Point of Care 143 mg/dl (70-99)
[2024-06-30] MEDS: TOPROL XL 12.5 MG PO (20:01)
[2024-06-30 21:13] LABS: Glucose - Point of Care 166 mg/dl (70-99)
[2024-06-30] MEDS: PROZAC 20 MG PO (21:28)
[2024-06-30] MEDS: LIPITOR 80 MG PO (21:29)
[2024-06-30] MEDS: ZETIA 10 MG PO (21:29)
[2024-07-01] MEDS: ZOSYN IV ×2 (02:17→03:15)
--- NOTE | 2024-07-01 02:53 | DOWNTIME ---
There was a [employer] Downtime on 07/01/2024 from 0100 to 07/01/2023 at 0235 . Downtime documentation of patient's care, including medication administrations, has been reconciled in the electronic record per guidelines. Refer to the
patient's paper chart under the miscellaneous tab to see printed paper medication records and downtime forms.
[2024-07-01 03:07] VITALS: BP 118/72
[2024-07-01 06:00] VITALS: BMI 21.0
[2024-07-01 06:32] LABS: Hematocrit 30.3 % (37.0-47.0); Hemoglobin 9.2 g/dL (12.0-16.0); Mean Corp Hgb Conc. 30.4 g/dL (33.0-37.0); Mean Corpuscular Hgb 24.4 pg (27.0-31.0); Mean Corpuscular Volume 80.4 fL (81.0-99.0); Mean Platelet Volume 10.7 fL (7.4-10.4); Platelet Count 468 10^3/uL (130-400); Red Blood Cell Count 3.77 10^6/uL (4.20-5.40); Red Cell Dist. Width 24.4 % (11.5-14.5); White Blood Cell Count 24.1 10^3/uL (4.8-10.8)
[2024-07-01 07:04] VITALS: BP 106/61
[2024-07-01 07:07] LABS: Blood Urea Nitrogen 15 mg/dl (7-17); Calcium 8.3 mg/dl (8.4-10.2); Carbon Dioxide 27 mmol/L (22-30); Chloride 102 mmol/L (98-107); Estimated Creatinine Clearance 35 ml/min; Glucose 98 mg/dl (70-99); Potassium 4.2 mmol/L (3.5-5.1); Sodium 136 mmol/L (135-145); eGFR 44.24
[2024-07-01] MEDS: DUONEB 3 ML INH (07:22)
[2024-07-01] MEDS: ZOSYN 50 IV (07:38)
[2024-07-01] MEDS: PROTONIX 40 MG PO (07:40)
[2024-07-01] MEDS: TOPROL XL 12.5 MG PO (07:40)
[2024-07-01] MEDS: FARXIGA 10 MG PO (07:40)
[2024-07-01] MEDS: NOVOLOG FLEXPEN-LOW RESISTANCE SC (07:41)
[2024-07-01] MEDS: PACERONE 200 MG PO (07:41)
[2024-07-01] MEDS: LASIX 20 MG PO (07:41)
[2024-07-01] MEDS: MUCINEX 1200 MG PO (07:41)
[2024-07-01] MEDS: ELIQUIS 2.5 MG PO (07:41)
[2024-07-01 07:42] LABS: Glucose - Point of Care 108 mg/dl (70-99)
[2024-07-01] MEDS: MIRALAX PO (07:42)
--- NOTE | 2024-07-01 09:25 | W.PN.HOSP.TC ---
Addendum entered and electronically signed by Dana Qureshi MD 07/01/24 09:29:
Blake 2 positive MPN
-chronically elevated WBC
-no e/o untreated infection
Original Note:
Today's Communication/Plan
-
OK for DC today
Assessment / Plan
Assessment / Plan
Acute hypoxemic/hypercapnic respiratory failure requiring intubation along with a respiratory acidosis
Suspect primary cause of respiratory distress likely mucous plugging or worsening pneumonia
-s/p extubation on 06/27
-s/p Tamiflu; s/p 5 1/2 days IV Zosyn
-patient now on room air
-incentive [place]
-mucolytics
-OK for DC
Fevers
-afebrile over 24 hours
-CTM
Shock circulatory/medication induced versus septic in the setting of flu
-propofol off
-bP better
MICHAEL on CKD 3
-MICHAEL component resolved
-creatinine at baseline
-resume lasix
Pubic Ramus Fracture
-PT/OT
-PT recommending SNF versus home PT
Heart failure with recovered EF, acute exacerbation
-patient with weight gain and JVP seen 06/29
-s/p lasix 40mg IV x 1 now, resumed oral lasix 06/30; will ask patient to take BID x 3 days at home then resume daily
CAD
Continue Zetia and statin along with beta-blockade
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
Paroxysmal atrial fibrillation in sinus rhythm on amiodarone, b-chau
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
GERD Husain's esophagus
Continue PPIs twice daily
History of lung CVA outpatient follow-up
downgrade to tele
Anticipated Discharge: Today
Subjective/Interval History
-
Date of Service: July 01, 2024
feeling better today
lost weight
mildly SOB with exertion
Objective Data
-
Labs:
Laboratory Results
07/01/24
06:09
WBC 24.1 H
Hgb 9.2 L
Hct 30.3 L
Plt Count 468 H
Sodium 136
Potassium 4.2
Chloride 102
Carbon Dioxide 27
BUN 15
Creatinine 1.3 H
Glucose 98
Calcium 8.3 L
Vital Signs:
Vital Signs
Temp Pulse Resp BP Pulse Ox
97.6 F 65 16 106/81 97
07/01/24 07:04 07/01/24 07:40 07/01/24 07:22 07/01/24 07:40 07/01/24 07:22
I&O
06/30/24 07/01/24 07/02/24
06:59 06:59 06:59
Intake Total 680 / 680 600 / 600
Balance 680 / 680 600 / 600
Review of Systems
-
History Source: Patient
All other systems: Reviewed and negative
Physical Exam
-
General: No Apparent Distress
HEENT: Normocephalic
Respiratory: Negative Wheezes
Cardiac: S1/S2 and JVD
GI: Soft and Nontender
Musculoskeletal: No Clubbing, No Cyanosis and No Edema
Skin: Warm
Neuro: Awake, Alert, Oriented and AO x 3
Psych: Calm
Data Reviewed
-
Diagnostic Radiology: Report Reviewed by me
Labs: Labs Reviewed by me
--- NOTE | 2024-07-01 09:36 | W.DS.TRANS ---
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
-
Discharge Instructions:
Sleep Apnea Risk Low
Discharge Diagnosis/Procedures Influenza A, superimposed bacterial pneumonia,
pubic ramus fracture
Diet Low Sodium
Activity As tolerated,With Walker
Driving Restrictions As prior to admission
Bathing Restrictions None
Blood Work CBC with Diff; BMP on Saturday07/06/24
Other Services VN,PT,OT
Instructions:
Stand-Alone Forms:
Changes to Home Medications: No
Discharge Medications:
DC Medications w/original date entered in [facility]
atorvastatin 80 mg tablet (Lipitor) 80 mg PO HS High cholesterol 04/07/22
ezetimibe 10 mg tablet (Zetia) 10 mg PO HS High cholesterol 04/07/22
fluoxetine 20 mg capsule (Prozac) 20 mg PO HS Mental Health 04/07/22
empagliflozin 10 mg tablet (Jardiance) 10 mg PO DAILY heart protection 02/18/23
furosemide 20 mg tablet 20 mg PO DAILY Fluid Retention/Swelling 07/22/23
amiodarone 200 mg tablet 200 mg PO DAILY Arrhythmia 09/21/23
acetaminophen 325 mg tablet (Tylenol) 650 mg PO TID Pain 01/28/24
apixaban 2.5 mg tablet (Eliquis) 2.5 mg PO BID #60 tabs 01/31/24
vibegron 75 mg tablet (Gemtesa) 75 mg PO DAILY Urinary Issue 04/22/24
kukfyasij-BKP-ZP-acetaminophen 7.5 mg-60 [id number]/30mL oral liqd 15 ml PO HSPRN PRN sleep 06/25/24
metoprolol succinate 25 mg tablet,extended release 24 hr (Toprol XL) 12.5 mg PO BID Heart Failure 06/25/24
therapeutic multivitamin 1 tab PO DAILY Supplement 06/25/24
umeclidinium 62.5 mcg-vilanterol 25 mcg/actuation powdr for inhalation (Anoro Ellipta) 1 inh inhalation R DAILY Lung/Breathing Issues 06/25/24
Home Medication Changes
Pending Results: No
[2024-07-01] MEDS: DUONEB INH (11:22)
[2024-07-01 11:31] VITALS: BP 113/60
--- NOTE | 2024-07-01 13:39 | W.DCSUMMARY ---
Discharge Summary
Discharge Data
Date of Admission: 06/25/24
Date of Discharge: 07/01/24
-
Pending Results: No
Hospital Course
Discharging Physician : Dr. Dana Qureshi
Disposition : Home
Primary care physician : Dr. Carlita Kwon
Principal Discharge diagnosis : Influenza A, superimposed bacterial pneumonia
Hospital Course :
Ms. Kyleigh Gonsalez is a 69 yo woman with hx lung cancer s/p resection 11 years and again 7 years prior, essential HTN, CAD, A-Fib, CKD, Blake-2 positive MPN (follows with Dr. Tran), who presents to ED complaining of cough and SOB. She was
found to have influenza A. Initial CXR without significant cardiopulmonary disease.
On the evening of HD 1 patient had acute clinical worsening with increased work of breathing with ABG showing hypoxic/hypercarbic respiratory failure and decision made to intubate. She was transferred to the ICU, started on broad spectrum
antibiotics. She was extubated on 06/27. She completed Tamiflu and IV Zosyn course in the hospital and is weaned off of oxygen prior to discharge.
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 She was given IV diuresis with drop in weight. She is told to take BID Lasix over the next couple of days and then resume daily dosing. Repeat labs
ordered for early next week.
Patient had a fall prior to hospitalization and hip X-ray showed nondisplaced fracture through right pubic bone. Seen by ortho. Fracture to be managed non-operatively. Her pain was well controlled. She is discharged with home PT.
Patient has chronically elevated WBC, with significant elevation during episode of acute respiratory failure (up to 76.9). On discharge it is 24. She has known MPN and follows with Oncology. Repeat CBC ordered for Saturday.
Time spent on discharge was 45 minutes.
Important imaging findings :
CXR 06/24
IMPRESSION:
No active cardiopulmonary disease.
Hip X-Ray
IMPRESSION:
Nondisplaced fracture through the right pubic bone.
Prior right femoral surgical fixation with prior femoral neck and proximal shaft fractures.
TTE 06/26/24
CONCLUSIONS
Normal left ventricular chamber size. Mild concentric left ventricular
hypertrophy. Overall, preserved left ventricular systolic function. Left
ventricular ejection fraction is 50-55% by visual estimate. Stage II diastolic
dysfunction suggestive of abnormal relaxation and increased filling pressures.
Thickened mitral valve leaflets. There is adequate mitral leaflet excursion.
Mild mitral annular calcification. Moderate posterior eccentric mitral
regurgitation.
Trileaflet aortic valve. There is adequate aortic leaflet excursion. Mild focal
calcification. Trace aortic regurgitation.
Tricuspid valve opens normally. Mild to moderate tricuspid regurgitation.
Estimated pulmonary artery pressure of 42 mmHg assuming a right atrial pressure
of 3 mmHg.
Mildly dilated right atrium.
Normal right ventricular size and function.
Since echo September 2023, there is no significant change.
Procedure findings :
Discharge Plan
-
Patient Disposition: Home with Home Care
Discharge Diagnosis/Procedures: Influenza A, superimposed bacterial pneumonia, pubic ramus fracture
Diet: Low Sodium
Activity: As tolerated and With Walker
Driving Restrictions: As prior to admission
Bathing Restrictions: None
Blood Work: CBC with Diff; BMP on Saturday07/06/24
Other Services: VN, PT and OT
Referrals:
Sara Tran MD [Active] - (follow up as planned )
Capo Santiago MD [Active] - in one to two weeks (Or nurse practitioner-hospitalized/pneumonia/influenza/ventilator)
Danielle Hernández PA-C [Specified Professional Personl] - in one month
NONE,* [Family Provider] -
Additional Discharge Medication Instructions: Take Lasix 20mg twice a day today and tomorrow then resume daily dosing.
Prescriptions:
Continued
atorvastatin [Lipitor] 80 mg Tablet
80 mg PO HS
fluoxetine [Prozac] 20 mg Capsule
20 mg PO HS
ezetimibe [Zetia] 10 mg Tablet
10 mg PO HS
Jardiance 10 mg tablet
10 mg PO DAILY
furosemide 20 mg tablet
20 mg PO DAILY
amiodarone 200 mg Tablet
200 mg PO DAILY
acetaminophen [Tylenol] 325 mg Tablet
650 mg PO TID
Eliquis 2.5 mg tablet
2.5 mg PO BID Qty: 60 0RF
Gemtesa 75 mg Tablet
75 mg PO DAILY
kthasixte-MPJ-IH-acetaminophen 7.5-60-30-1,000 mg/30 mL Liquid
15 ml PO HSPRN PRN (Reason: sleep)
therapeutic multivitamin Tablet
1 tab PO DAILY
metoprolol succinate [Toprol XL] 25 mg Tablet Extended Release 24 Hr
12.5 mg PO BID
Anoro Ellipta 62.5-25 mcg/actuation Blister With Device
1 inh INHALATION R DAILY
Discharge Orders:
Discharge Patient (As Directed); Ordered 07/01/24
Ordered By: Dana Qureshi
Discharge Date and Time
Discharge Date/Time: 07/01/24 12:19
Print Language: QATARI
== END 2024-07-01 12:19 | disposition home or self-care (01) | DRG 871 ==
LOC: 3 WEST ACU 02:13
PROVIDERS: Hospitalist; Internal Medicine; Nurse Practitioner Primary Care; ADMITTING PHYSICIAN Hospitalist; ATTENDING PHYSICIAN Student in an Organized Health Care Education/Training Program; CONSULT PHYSICIAN Internal Medicine Critical Care Medicine; CONSULT PHYSICIAN Orthopaedic Surgery; EMERGENCY PHYSICIAN Emergency Medicine
PROC: 5A1945Z Respiratory Ventilation, 24-96 Consecutive Hours (ICD-10-PCS; 2024-06-25)
DX: A41.89 Other specified sepsis (principal); J10.08 Influenza due to other identified influenza virus with other specified pneumonia; J96.02 Acute respiratory failure with hypercapnia; J96.01 Acute respiratory failure with hypoxia; J15.9 Unspecified bacterial pneumonia; S32.591A Other specified fracture of right pubis, initial encounter for closed fracture; I13.0 Hypertensive heart and chronic kidney disease with heart failure and stage 1 through stage 4 chronic kidney disease, or unspecified chronic kidney disease; I50.22 Chronic systolic (congestive) heart failure; N17.9 Acute kidney failure, unspecified; E87.1 Hypo-osmolality and hyponatremia; E87.20 Acidosis, unspecified; J44.1 Chronic obstructive pulmonary disease with (acute) exacerbation; J44.0 Chronic obstructive pulmonary disease with (acute) lower respiratory infection; I25.10 Atherosclerotic heart disease of native coronary artery without angina pectoris; Z85.118 Personal history of other malignant neoplasm of bronchus and lung; N18.30 Chronic kidney disease, stage 3 unspecified; I48.0 Paroxysmal atrial fibrillation; I08.1 Rheumatic disorders of both mitral and tricuspid valves; F32.A Depression, unspecified; F41.9 Anxiety disorder, unspecified; Z85.51 Personal history of malignant neoplasm of bladder; Z95.5 Presence of coronary angioplasty implant and graft; Z87.891 Personal history of nicotine dependence; E78.00 Pure hypercholesterolemia, unspecified; W01.0XXA Fall on same level from slipping, tripping and stumbling without subsequent striking against object, initial encounter; D45 Polycythemia vera; D75.839 Thrombocytosis, unspecified; K21.9 Gastro-esophageal reflux disease without esophagitis; K22.70 Barrett's esophagus without dysplasia; Z79.899 Other long term (current) drug therapy; Z79.84 Long term (current) use of oral hypoglycemic drugs; Z79.01 Long term (current) use of anticoagulants; D50.9 Iron deficiency anemia, unspecified; Z11.52 Encounter for screening for COVID-19; J43.9 Emphysema, unspecified; Z90.2 Acquired absence of lung [part of]; H91.90 Unspecified hearing loss, unspecified ear; Z87.81 Personal history of (healed) traumatic fracture
CPT/HCPCS: 36600; 71045; 71046; 71250; 73502; 80048; 80053; 80202; 82330; 82805; 82962; 83605; 83735; 83880; 84100; 84132; 84145; 84302; 84443; 84478; 84484; 85018; 85025; 85027; 85610; 85730; 87070; 87205; 87449; 87502; 87641; 87811; 87899; 92526; 92610; 93005; 93306; 94002; 94003; 94640; 96361; 96374; 97116; 97167; 99285

== ENCOUNTER 2024-09-03 13:15 | Outpatient (RCR) | payer OTHER, SELFPAY | END 2024-09-09 11:07 | disposition home or self-care (01) | LOC: PURB 13:15 | PROVIDERS: ATTENDING PHYSICIAN Internal Medicine Critical Care Medicine; FAMILY PHYSICIAN Family Medicine | DX: J44.9 Chronic obstructive pulmonary disease, unspecified (principal) | CPT/HCPCS: 94625; G0237 ==

== ENCOUNTER 2024-10-08 13:15 | Outpatient (RCR) | payer OTHER, SELFPAY | END 2024-10-09 10:49 | disposition home or self-care (01) | LOC: PURB 13:15 | PROVIDERS: ATTENDING PHYSICIAN Internal Medicine Critical Care Medicine; FAMILY PHYSICIAN Family Medicine | DX: J44.9 Chronic obstructive pulmonary disease, unspecified (principal) | CPT/HCPCS: 94625 ==

== ENCOUNTER 2024-10-27 13:15 | Outpatient (RCR) | payer OTHER, SELFPAY | END 2024-11-09 09:42 | disposition home or self-care (01) | LOC: PURB 13:15 | PROVIDERS: ATTENDING PHYSICIAN Internal Medicine Critical Care Medicine; FAMILY PHYSICIAN Family Medicine | DX: J44.9 Chronic obstructive pulmonary disease, unspecified (principal) | CPT/HCPCS: 94625 ==

== ENCOUNTER 2024-11-16 13:52 | Inpatient (IN) | payer OTHER, SELFPAY ==
[2024-11-16] VITALS (8 sets, daily range): BP systolic 98–109; BP diastolic 36–69; BMI 21.5; BMI 20.5
--- NOTE | 2024-11-16 11:05 | ED.GENMED ---
History of Present Illness
General
Chief Complaint: Breathing Problem
Time Seen by Provider: 11/16/24 10:46
History of Present Illness
History of Present Illness:
69-year-old female presents to the emergency department for evaluation of exertional shortness of breath and weight gain. Notes a 7 pound weight gain over the past week, saw her regulatory compliance engineer last week and had started a double dose of Lasix since
that time but reports weight gain is continued. Reports dyspnea on exertion and orthopnea, no chest pain. No fevers or chills. No black or melanotic stool however does take oral iron supplement.
Past History
Past History
ED Past Medical History: Arrthythmia (A fib), Cancer (Bladder cancer lung cancer), HTN and Hypercholesterolemia
ED Past Surgical History: Appendectomy, Cardiac (Stent), (X 2) and Other (Bilateral upper lung lobectomy)
Social History
Tobacco: Former smoker
Alcohol: None
Drug: Marijuana
Personal:
Living: alone
Employment: Other
Family History
Family History: Other
Review of Systems
Review of Systems
Allergies reviewed?: Yes
All Other Systems: ROS reviewed and negative except as documented in HPI and ROS
Phy Exam
Physical Exam
Physical Exam:
GEN: Well appearing, NAD, WDWN
HEENT: Oral mucosa moist, no scleral icterus
Cardiac: Regular rate and rhythm, no murmur
Lung: No respiratory distress, no tachypnea, wheezing noted in bilateral bases, no obvious crackles or rales
MSK: No gross deformity or injuries, mild pedal edema bilaterally
Skin: Good color, no pallor or jaundice, no rashes
Neuro: AO x3, moves all extremities freely
Psych: Calm, cooperative
Scores
Heart Failure Risk
Heart Failure Risk Score: Yes
History of Stroke or TIA: No
History of intubation for respiratory distress: No
Heart rate on ED arrival >/= 110: No
SaO2 <90% on arrival on room air: No
HR >/=110 during 3min walk test (or too ill to perform test): No
ECG has acute ischemic changes: No
Urea >/=12mmol/L (BUN 33.6mg/dL): No
Serum CO2>/=35mmol/L: No
Troponin I or T elevated to CT Level (0.4mg/dL): No
NT-proBNP >/=5,000ng/L (5,000pg/ml): Yes
HF Risk Score: 1
Admission Status: MEDIUM RISK 5.1% Consider observation or discharge to home with homecare & f/u visit to PCP/Utilities Estimator And Drafter, or SNF for treatment
Course
Orders/Labs/Results
Orders:
Orders
11/16/24 10:03
EKG [Electrocardiogram (*1)] Urgent
Reason for Study: Chest Pain
EKG- Treatment ONCE
11/16/24 10:17
CR Chest - 2 Views Urgent
Comment:
Reason For Exam: respiratory distress
11/16/24 11:21
Complete Blood Count/With Diff Urgent
Comprehensive Metabolic Panel Urgent
NT-proBNP Urgent
Troponin I Urgent
11/16/24 12:28
Furosemide [Lasix] 60 mg IV NOW STA
11/16/24 12:36
Potassium Chloride [KCl] 40 meq PO NOW STA
11/16/24 12:42
Type+Screen Urgent
11/16/24 13:24
Admit/Transfer Patient As Directed
Co-Sign Provider:
Level of Care: Inpatient admission
Assign to:: Telemetry
Physician / Group: terrell menard
Diagnosis: CHf exacerbation
Reason for Telemetry: Arrhythmia
Date to Stop Telemetry: 11/19/24
Time to Stop Telemetry: 11:00
Reason for Hospitalization: CHF exacerbation
Expected length of stay greater than two midnights?: Yes
ELOS- Estimated Length of Stay in days: 3
I certify the patient meets the requirements for IP care: Yes
PRN Pain Medication Management As Directed
May give lesser potent ordered pain med per pt: Yes
preference::
Protocol:: Medication orders for pain may be administered in a
manner that supports deferring to patient preference
when the pt is:
- Requesting an ordered lesser potent pain medication.
Least to most potent pain medications are defined
as: acetaminophen < NSAID < tramadol < opioids
(morphine, oxycodone, hydromorphone).
- Requesting a lesser dose of the same medication IF
ORDERED.
- Requesting a less intrusive route of administration
if both routes are prescribed by the provider (PO <
IV).
11/16/24 13:26
Code Status As Directed
Resuscitation Status: Full Code
11/19/24 11:00
DC Protocol for Telemetry ONCE
Abnormal Lab Results
11/16/24
11:21
WBC 24.5 H 10^3/uL
(4.8-10.8)
RBC 3.04 L 10^6/uL
(4.20-5.40)
Hgb 7.2 L g/dL
(12.0-16.0)
Hct 23.9 L %
(37.0-47.0)
MCV 78.6 L fL
(81.0-99.0)
MCH 23.7 L pg
(27.0-31.0)
MCHC 30.1 L g/dL
(33.0-37.0)
RDW 24.5 H %
(11.5-14.5)
Plt Count 432 H 10^3/uL
(130-400)
MPV 11.4 H fL
(7.4-10.4)
Abs Immat Gran (auto) 1.7 H 10^3/uL
(0-0.05)
Absolute Neuts (auto) 19.8 H 10^3/uL
(1.4-6.5)
Absolute Lymphs (auto) 1.1 L 10^3/uL
(1.2-3.4)
Absolute Monos (auto) 1.7 H 10^3/uL
(0.1-0.6)
Immature Gran % 6.7 H %
(0-0.5)
Neutrophils % 81.0 H %
(42.2-75.2)
Lymphocytes % 4.5 L %
(20.5-51.1)
Sodium 131 L mmol/L
(135-145)
BUN 30 H mg/dl
(7-17)
Creatinine 1.6 H mg/dL
(0.6-1.0)
Glucose 104 H mg/dl
(70-99)
Calcium 8.2 L mg/dl
(8.4-10.2)
Total Protein 5.7 L g/dl
(6.3-8.2)
11/16/24 11:21
11/16/24 11:21
Vital Signs
Initial and Last Documented VS:
Initial Vital Signs
Temp Pulse Resp BP Pulse Ox
98.4 F 68 16 105/65 99
11/16/24 10:14 11/16/24 10:14 11/16/24 10:14 11/16/24 10:14 11/16/24 10:14
Last Documented Vital Signs
Temp Pulse Resp BP Pulse Ox
98.4 F 68 16 107/69 97
11/16/24 10:14 11/16/24 12:45 11/16/24 12:45 11/16/24 12:42 11/16/24 12:45
MDM/Problems Addressed
MDM/Problems Addressed:
Patient peers clinically volume overloaded however is in no respiratory distress. She is noted to have a BNP greater than 27,000 most likely due to acute HFpEF. She is also noted to be anemic with a hemoglobin of 7.2, has chronic oral iron
supplementation thus Hemoccult is likely to be positive regardless. Denies any acute change in stool color to suggest new GI bleed. This may be artifactually low in the setting of significant hemodilution due to hypovolemia thus will trial
diuresis before jumping to transfusion particularly as this will add significant volume
Comment
Comment:
EKG independently interpreted by me shows normal sinus rhythm at a rate of [address] flattening and T wave inversions in the anterior lateral leads compared to prior
*Pulse Oximetry
SaO2: 99
Oxygen Mode of Delivery: Room air
Patient hypoxic: no
*Critical Care Note
Total Time (30-74mins, 75-104mins- exclusive of procedures): Not Applicable
ED Attending Note
-
Portions of this chart may have been created with voice recognition software.� Occasional wrong word or��sound alike� substitutions may have occurred due to the inherent limitations of voice recognition software.
Discharge Plan
Departure
Patient Disposition: Admit
Date of Disposition: 11/16/24
Time of Disposition: 12:57
Admit to: Telemetry
Presentation/result/management discussed w/ accepting MD/DO: Hospitalist
Discharge Problem:
Acute heart failure with preserved ejection fraction (HFpEF), Anemia
Interventions
Interventions:
*Risk Screen - Suicide Last Done: 11/16/24 10:14
*General Assessment Last Done: 11/16/24 11:24
*Neglect/Abuse Screening Last Done: 11/16/24 10:14
*ED- Fall Risk Assessment Last Done: 11/16/24 11:24
ED- Cardiac Assessment Last Done: 11/16/24 11:24
ED- Pulmonary Assessment Last Done: 11/16/24 11:24
[2024-11-16 11:34] LABS: Hematocrit 23.9 % (37.0-47.0); Hemoglobin 7.2 g/dL (12.0-16.0); Mean Corp Hgb Conc. 30.1 g/dL (33.0-37.0); Mean Corpuscular Volume 78.6 fL (81.0-99.0); Platelet Count 432 10^3/uL (130-400); Red Cell Dist. Width 24.5 % (11.5-14.5)
[2024-11-16 12:03] LABS: Nucleated Red Blood Cells % 1.2 %
[2024-11-16 12:08] LABS: ALT (SGPT) 22 U/L (0-35); AST (SGOT) 34 U/L (14-36); Albumin 3.5 g/dl (3.5-5.0); Alkaline Phosphatase 98 U/L (38-126); Blood Urea Nitrogen 30 mg/dl (7-17); Calcium 8.2 mg/dl (8.4-10.2); Carbon Dioxide 22 mmol/L (22-30); Chloride 101 mmol/L (98-107); Estimated Creatinine Clearance 29 ml/min; Glucose 104 mg/dl (70-99); Potassium 3.8 mmol/L (3.5-5.1); Sodium 131 mmol/L (135-145); Total Protein 5.7 g/dl (6.3-8.2); eGFR 34.48
[2024-11-16 12:19] LABS: Troponin I 0.012 ng/ml
[2024-11-16] MEDS: LASIX 60 MG IV (12:42)
[2024-11-16] MEDS: KCL 40 MEQ PO (12:42)
--- NOTE | 2024-11-16 12:59 | HPS.HSE ---
Family Physician
-
Family Physician: Carlita Kwon
Chief Complaint
-
sob
History of Present Illness
69-year-old female with past medical history for A-fib, bladder cancer, lung cancer, hypertension, hyperlipidemia presents to the emergency department for evaluation of exertional shortness of breath and weight gain. for past one week. Patient
gained 7 pounds in 1 week. Patient reported lightheaded, headache. Short of breath worse with exertion patient was not able to sleep last night due to short of breath. She complained of headache and lightheadedness. Her Lasix was increased to
20 twice a day last this day with no improvement in her symptoms. Patient denied any cough, congestion, chest pain. Patient denied any fever, chills. Patient denied any abdominal pain, nausea, vomiting diarrhea. Patient denied dysuria or
hematuria.
Upon arrival she was noted to have elevated BNP.
Admitted for further management of CHF exacerbation. Patient received Lasix 60 in the ER, potassium chloride 40 mEq in the ER. Admitting for further management
Medical History
Past Medical History
Past Medical History: Reports Other
Additional Past Medical History:
Lung CA, hypertension, mitral valve insufficiency, paroxysmal A-fib, coronary artery disease, hyperlipidemia, chronic diastolic heart failure, polycythemia, ischemic cardiomyopathy, iron deficiency anemia, stage IIIb CKD, bladder wall cancer,
gastric polyps, angiodysplasia of duodenum, colon polyps, Husain's esophagus, GERD, GI bleed
Past Surgical History: Reports Other
Additional Past Surgical History:
Cardiac stents, ORIF right leg fracture, right upper lung lobectomy, , cochlear implant, TURBT, cataract surgery,
Social History
Tobacco: Non-smoker
Alcohol: None
Drug: None
Family History
Family History: Not pertinent
Allergies / Home Medications
Allergies reflects when Allergies were last updated in [facility].
Home Medications with original date entered in [facility]
Allergy/Medication List:
Allergies
Allergy/AdvReac Type Severity Reaction Status Date / Time
pollen extracts Allergy runny Verified 11/16/24 10:14
nose,itchy
eyes
Home Medications
atorvastatin 80 mg tablet (Lipitor) 80 mg PO HS High cholesterol 04/07/22
ezetimibe 10 mg tablet (Zetia) 10 mg PO HS High cholesterol 04/07/22
fluoxetine 20 mg capsule (Prozac) 20 mg PO HS Mental Health 04/07/22
empagliflozin 10 mg tablet (Jardiance) 10 mg PO DAILY heart protection 02/18/23
furosemide 20 mg tablet 20 mg PO BID Fluid Retention/Swelling 07/22/23
amiodarone 200 mg tablet 200 mg PO DAILY Arrhythmia 09/21/23
apixaban 2.5 mg tablet (Eliquis) 2.5 mg PO BID #60 tabs 01/31/24
vibegron 75 mg tablet (Gemtesa) 75 mg PO DAILY Urinary Issue 04/22/24
metoprolol succinate 25 mg tablet,extended release 24 hr (Toprol XL) 12.5 mg PO BID Heart Failure 06/25/24
therapeutic multivitamin 1 tab PO DAILY Supplement 06/25/24
umeclidinium 62.5 mcg-vilanterol 25 mcg/actuation powdr for inhalation (Anoro Ellipta) 1 inh inhalation R DAILY Lung/Breathing Issues 06/25/24
diphenhydramine 25 mg-acetaminophen 500 mg tablet (Acetaminophen PM) 1 tab PO HS 11/16/24
ipratropium 0.5 mg-albuterol 3 mg (2.5 mg base)/3 mL nebulization soln 3 ml inhalation R HS 11/16/24
melatonin 10 mg tablet 10 mg PO HS 11/16/24
pantoprazole 40 mg tablet,delayed release (Protonix) 40 mg PO DAILY 11/16/24
vitamin B complex 1 tab PO DAILY 11/16/24
Review of Systems
-
Constitutional: Reports Weight Gain
EENT: Reports No Symptoms
Respiratory: Reports Trouble Breathing
Cardiac: Reports No Symptoms
Abdomen/GI: Reports No Symptoms
: Reports No Symptoms
Musculoskeletal: Reports No Symptoms
Skin: Reports No Symptoms
Neurological: Reports Headache
Endocrine: Reports No Symptoms
Hematologic/Lymphatic: Reports No Symptoms
Psych: Reports No Symptoms
Physical Exam
Vital Signs
Vital Signs
Temp Pulse Resp BP Pulse Ox
98.4 F 68 16 107/69 97
11/16/24 10:14 11/16/24 12:45 11/16/24 12:45 11/16/24 12:42 11/16/24 12:45
Physical Exam
General: Well Developed, Well Nourished and No Apparent Distress
HEENT: NormoCephalic, Moist mucous membranes and Atraumatic
Respiratory: Crackles
Cardiac: S1/S2 and Regular Rhythm; No Murmur or Rub
GI: Soft, Non Tender, Non Distended and Normal Bowel Sounds; No Organomegaly
Rectal: Deferred by Provider
Musculoskeletal: No Clubbing, No Cyanosis and Other (Bilateral lower extremities edema)
Skin: No Rash
Neuro: AO x 3 and Nonfocal/grossly intact
Laboratory Results
-
11/16/24 11:21
11/16/24 11:21
Laboratory Results
Total Bilirubin 1.0 mg/dl (0.2-1.3) 11/16/24 11:21
AST 34 U/L (14-36) 11/16/24 11:21
ALT 22 U/L (0-35) 11/16/24 11:21
Alkaline Phosphatase 98 U/L (38-126) 11/16/24 11:21
Troponin I 0.012 ng/ml 11/16/24 11:21
Data Reviewed
-
Diagnostic Radiology: Report Reviewed by me
Lab Data: Labs Reviewed by me
Impression/Plan
-
# Acute exacerbation of heart failure
- Failed outpatient is is an increase
- BNP 96168
- Diuretics continued
-Jardiance continued
- Strict CLAUDE, daily weight, fluid restriction
- Obtain echo
- Cardiology consulted
- Chest x-ray pending
- Recent echo with EF of 50 to 55%
# Anemia likely hemodiluted
# History of iron deficiency anemia
# History of thrombocytosis
-Platelets 732, hemoglobin 7.2
- No active bleeding
- Continue to monitor
# Chronic leukocytosis
- WBCs 24.5
- Patient is afebrile
- Continue to monitor
# Hyponatremia likely hypervolemic
# CKD stage IIIb
- Sodium 131, creatinine 1.6
- Fluid restriction
- BMP in a.m.
#CAD
-Continue Zetia and statin along with beta-blockade
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
#Paroxysmal atrial fibrillation in sinus rhythm on amiodarone, b-chau
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
# Anxiety
-Prozac continued
GERD Husain's esophagus
Continue PPIs twice daily
#History of lung CA outpatient follow-up
- Nebs from home continue
- Close Mcnary
# DVT prophylaxis
- Eliquis
# CODE STATUS
- Full code
--- NOTE | 2024-11-16 13:24 | W.PN.UPDATE ---
Update Note
Progress Note Update
This note serves as an addendum to the H&P by painter tumbling barrel [place]
Lavonne LEANN
HPI
69F PMHX chr HFpEF, CKD3, Prx AF pw ional shortness of breath and 7 pound weight gain over the past week-
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
- no - chest pain. No fevers or chills.
- No black or melanotic stool however does take oral iron supplement.
Relevant VS:
HR low 70s DEYA low 100s/70
PE
Gen: MELANIE, not toxic
Neck: JVP 8 cm
Lungs: rales at bases
Cor: RRR S1 S2
MS: b/l Lizabeth trace to mild edema while lying flay , more when walking
Psych: interacitve , nl mod
Relevant Data
06/26/23 TTE
LVEF 25
Stage II diastolic dysfunction
Moderate posterior eccentric MR
Trace aortic regurgitation.
Mild to moderate tricuspid regurgitation.
pulmonary artery pressure of 42 mmHg assuming a right atrial pressure of 3 mmHg.
Mildly dilated right atrium.
Normal right ventricular size and function.
Last hospitalist admission:
ASSESSMENT & PLAN
Pending Rx reconciliation
Acute HF
Volume overload
HX chr HFpEF
- IV frusemide
- on GDMT - Jardiance, PO Frusemide, Toprol XL
- DCA card consult
MICHAEL - Cr 1.6 suspect cardiorenal syndrome
HX CKD 3b
- baseline Cr 1.3s, e GRR mid 40s
- IV Diuresis and trend Cr
Microcytic anemia
HX Fe def anemia - currently on oral Fe Tx
- will defer stool HoB
- T& S plus consented
- Trend Hgb
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
- chronic
HX Prx AF
- amiodarone
- Eliquis
HLD
- on Atorvastatin
DVT Px: on LEAD CYTOGENETIC TECHNOLOGIST Eliquis
Full code
IP TLM
--- NOTE | 2024-11-16 14:38 | CON.CAR ---
Addendum entered and electronically signed by Matthias Meléndez MD 11/16/24 15:22:
I saw and examined the patient.
The FOOD ANALYST or PA's note was reviewed and I agree with the note.
Comment: General: Well developed, well nourished in NAD.
Neck: Supple, no JVD, HJR, carotids +2 B/L, no bruits bilaterally.
Heart: Non displaced PMI, RRR, 2/6 apical holosystolic murmur, No S3, S4, no rubs.
Lungs: Scattered rhonchi
Extremities: No clubbing, cyanosis or edema bilaterally.
Neuro: Grossly nonfocal, awake, alert and oriented x3.
Kyleigh has a history of CAD, chronic diastolic CHF, recovered ischemic cardiomyopathy, paroxysmal A-fib on Eliquis, lung cancer, anemia, GI bleeding. She was seen in our office a week ago with shortness of breath and Lasix was increased to 20 mg
p.o. twice daily. Of note she was hypotensive in the office with systolic blood pressure of 80. Lisinopril was discontinued. She continued to gain weight and increasing shortness of breath and came to the ER and is admitted for acute diastolic
CHF.
Will treat with IV Lasix. Note her hemoglobin is 7.3. She has had history of GI bleeding. Will hold Eliquis. Will check echo. Blood pressure has improved. If hypotension recurs may consider midodrine.
Original Note:
Consultation
Consultation Request
Date/Time Consultation Requested: 11/16/2024
Date/Time Consultation Performed: 11/16/2024
Requesting Provider: Dr. Rivera
Performing Provider: Crystal Baumann PA-C for Dr. Meléndez
Reason for Consultation: CHF
Medical History
-
History of Present Illness:
HPI: Kyleigh is a 69 year old female with PMH of CAD, HFpEF, CM, MR, paroxysmal Afib, anemia, lung cancer, carotid stenosis, and prior GIB. Presented to [facility] ER for evaluation of worsening SOB and weight gain. She was seen in the cardiology office on
11/12 and noted weight gain and SOB. She was placed on higher dose lasix 20mg BID. She was also noted to be hypotensive and her lisinopril was stopped to allow for more aggressive diuresis. Despite this, she noted over the weekend she continued to
gain weight and breathing continued to worsen. She notes she has had no shortness of breath at rest and has had no orthopnea/PND. She called the cardiology office this AM to report worsening SOB and weight gain, and she was instructed to come to
the ER. She states leading up to the start of these symptoms, she has had no significant changes to diet, but notes with the heat she may have been drinking more water than normal. In ER, she was noted to have evidence of acute heart failure and was
admitted. Cardiology consulted for evaluation. Notes she feels well currently while sitting on stretcher in ER, after being given a dose of IV lasix.
PMH:
Chronic HFpEF
CAD
Circumflex stent 2010
SCALE CLERK of the RCA and borderline 50-60% mid LAD stenosis previously treated medically with patent circumflex stent by cath 07/09/22
s/p 3.0 mm [place] FAHAD to mid LAD 11/05/22
Takotsubo CM 07/2023
Recovered ischemic cardiomyopathy with EF 50% by echo 09/2023
Mod to severe MR by echo 09/2023
Paroxysmal AF
Chronic Eliquis OAC
Anemia
Resection of bladder tumor 07/16/22
History of hematuria 06/2022
History of lung cancer with bilateral lobectomies - L lobectomy 06/2011, RUL 05/2026
Carotid stenosis
Cochlear implants 2016
History of GI bleeding 06/2022, 11/2023 (angiodysplastic lesions with stigmata of recent bleeding in duodenum by EGD)
Past Medical History
Past Medical History: Other (in HPI)
Past Surgical History: Other (in HPI)
Social History
Tobacco: Former Smoker
Alcohol: None
Family History
Family History: CAD and Cancer
Allergies / Home Medications
Allergy/AdvReac Type Severity Reaction Status Date / Time
pollen extracts Allergy runny Verified 11/16/24 10:14
nose,itchy
eyes
�Medication �Instructions �Recorded �Confirmed �Type
atorvastatin 80 mg tablet (Lipitor) 80 mg PO HS High cholesterol 04/07/22 11/16/24 History
ezetimibe 10 mg tablet (Zetia) 10 mg PO HS High cholesterol 04/07/22 11/16/24 History
fluoxetine 20 mg capsule (Prozac) 20 mg PO HS Mental Health 04/07/22 11/16/24 History
empagliflozin 10 mg tablet 10 mg PO DAILY heart protection 02/18/23 11/16/24 History
(Jardiance)
furosemide 20 mg tablet 20 mg PO BID Fluid 07/22/23 11/16/24 History
Retention/Swelling
amiodarone 200 mg tablet 200 mg PO DAILY Arrhythmia 09/21/23 11/16/24 History
apixaban 2.5 mg tablet (Eliquis) 2.5 mg PO BID #60 tabs 01/31/24 11/16/24 Rx
vibegron 75 mg tablet (Gemtesa) 75 mg PO DAILY Urinary Issue 04/22/24 11/16/24 History
metoprolol succinate 25 mg 12.5 mg PO BID Heart Failure 06/25/24 11/16/24 History
tablet,extended release 24 hr
(Toprol XL)
therapeutic multivitamin 1 tab PO DAILY Supplement 06/25/24 11/16/24 History
umeclidinium 62.5 mcg-vilanterol 1 inh inhalation R DAILY 06/25/24 11/16/24 History
25 mcg/actuation powdr for Lung/Breathing Issues
inhalation (Anoro Ellipta)
diphenhydramine 25 1 tab PO HS 11/16/24 11/16/24 History
mg-acetaminophen 500 mg tablet
(Acetaminophen PM)
ipratropium 0.5 mg-albuterol 3 mg 3 ml inhalation R HS 11/16/24 11/16/24 History
(2.5 mg base)/3 mL nebulization
soln
melatonin 10 mg tablet 10 mg PO HS 11/16/24 11/16/24 History
pantoprazole 40 mg tablet,delayed 40 mg PO DAILY 11/16/24 11/16/24 History
release (Protonix)
vitamin B complex 1 tab PO DAILY 11/16/24 11/16/24 History
Review of Systems
-
History Source: Patient
All other systems: Negative unless noted
Physical Exam
Vital Signs
Temp Pulse Resp BP Pulse Ox
98.4 F 71 24 98/62 96
11/16/24 10:14 11/16/24 13:30 11/16/24 13:30 11/16/24 13:00 11/16/24 13:30
Lab Results
11/16/24 11:21
11/16/24 11:21
Troponin I 0.012 ng/ml 11/16/24 11:21
Pyw-X-Zijxecpssfz Pept > 11388 pg/ml 11/16/24 11:21
Physical Exam
General: Well Developed, Well Nourished and No Apparent Distress
HEENT: Normocephalic and Moist Mucous Membranes
Respiratory: Crackles and Non Labored Respirations
Cardiac: S1/S2, Regular Rhythm and Murmur
Musculoskeletal: No Clubbing, No Cyanosis and Edema
Skin: Warm
Neuro: AO x 3 and Nonfocal/Grossly Intact
Psych: Calm
Impression / Plan
-
PCP: Dr. Kwon
Ship Engines Operating Engineer: Dr. Meléndez
Impression:
Presented with SOB, weight gain
Acute on chronic HFpEF
Anemia, hgb 7.2
CAD
Circumflex stent 2010
SCALE CLERK of the RCA and borderline 50-60% mid LAD stenosis previously treated medically with patent circumflex stent by cath 07/09/22
s/p 3.0 mm [place] FAHAD to mid LAD 11/05/22
Takotsubo CM 07/2023
Recovered ischemic cardiomyopathy with EF 50% by echo 09/2023
Mod to severe MR by echo 09/2023
Paroxysmal AF
Chronic Eliquis OAC
Anemia
Resection of bladder tumor 07/16/22
h/o hematuria 06/2022
h/o lung cancer with bilateral lobectomies - L lobectomy 06/2011, RUL 05/2026
Carotid stenosis
Cochlear implants 2016
h/o GI bleeding 06/2022, 11/2023 (angiodysplastic lesions with stigmata of recent bleeding in duodenum by EGD)
Echo 02/27/21: LV: Normal size and function.� EF 50-55%.� Possible basal inferior HK.� RV: Normal, LA: Severely dilated, RA: Normal, MV: Moderate MR, AV: Sclerotic.� Trace AI.� TV: Mild TR with PAP 25 mmHg
Echo 07/07/22: LV: EF 35%.� Global HK with severe HK to akinesis of the basal and mid inferior and inferolateral segments.� Severe HK of the basal and mid anterior and anteroseptal.� Stage II diastolic dysfunction.� RV: Mildly dilated, LA: Severely
dilated, RA: Mildly dilated, MV: Mild to moderate eccentric MR, AV: Trace AI.� TV: Mild TR with PAP 4310/
GEORGINA 07/10/22: LV: Mildly reduced EF estimated 45-50%.� RV: Dilated, LA: Dilated, RA: Dilated, GEORGI: No thrombus, MV: Prolapse of A3-P3 segments with moderate eccentric MR.� ERO 0.2 cm� and regurgitant volume 32 by PISA method.� AV: Trace AI, TV: Mild
TR with PAP 32 mmHg
Echo 03/20/23: EF 45%, hypokinesis basal to mid anteroseptal, basal to mid inferior and inferolateral black, stage I diastolic dysfunction, mod MR
Echo 07/22/23: Ejection fraction 30 to 35%, global hypokinesis with anteroseptal, basal inferior, and basal septal akinesis., Moderate to severe MR, mild TR PA systolic of 53 mmHg
Echo 09/12/2023: EF visually 50 to 55%, 49% by Goldstein's, stage II diastolic dysfunction, severe LA dilation, moderate to severe eccentric MR, mild AI, moderate TR, PAP 58 mmHg
Echo 06/26/2024: EF 50-55%, stage II diastolic dysfunction, moderate posterior MR, trace AR, mild to moderate TR, estimated PAP 42 mmHg
Echo 11/16/2024: Study pending
Plan:
-Presented with SOB and weight gain despite increasing OP lasix to 20mg BID. Admitted with acute heat failure. ProBNP >27,000.
-Weight up to 128 lbs in ER. Dry weight felt to be approximately 120 lbs.
-Agree w/ IV lasix 40mg BID. Creat near recent baseline at 1.6.
-Follow daily weights, I&Os.
-Check echo. Prior echo in 06/2024 noted preserved EF with mod MR.
-In SR by ECG and on review of telemetry. HR stable. Continue Toprol, amiodarone.
-On Eliquis 2.5 mg BID for AC as OP. Hgb noted to be low at 7.2. Will hold Eliquis for now. Transfuse as needed. She does have h/o GIB as above.
-Troponin 0.012. No chest pain.
-Hypotension noted at recent OV 11/12 and lisinopril stopped. BP remains borderline low, however has been better. Continue to follow. Continue Toprol and Jardiance for now.
-Not on supplemental O2.
HPI: Kyleigh is a 69 year old female with PMH of CAD, CM, MR, paroxysmal Afib, anemia, lung cancer, carotid stenosis, and prior GIB. Presented to [facility] ER for evaluation of worsening SOB and weight gain. She was seen in the cardiology office on 11/12
and noted weight gain and SOB. She was placed on higher dose lasix 20mg BID. She was also noted to be hypotensive and her lisinopril was stopped to allow for more aggressive diuresis. Despite this, she noted over the weekend she continued to gain
weight and breathing continued to worsen. She notes she has had no shortness of breath at rest and has had no orthopnea/PND. She called the cardiology office this AM to report worsening SOB and weight gain, and she was instructed to come to the ER.
She states leading up to the start of these symptoms, she has had no significant changes to diet, but notes with the heat she may have been drinking more water than normal. In ER, she was noted to have evidence of acute heart failure and was
admitted. Cardiology consulted for evaluation. Notes she feels well currently while sitting on stretcher in ER, after being given a dose of IV lasix.
Data Reviewed
-
EKG: Tracing Personally Visualized and interpreted
Radiology: Report Reviewed by me
Labs: Labs Reviewed by me
Old Records: Reviewed
--- NOTE | 2024-11-16 15:40 | CM ---
CM reviewed chart and met with pt bedside in ED. Lives with her stepdaughter Christiano, [address], first floor BR/BA.
Independent in ADLs, personal care and ambulation at baseline, has walker and cane, uses both as needed.
HX VN in past, has been to [facility] in past.
PCP: Carlita Kwon
Pharmacy: [facility]
Discharge plan: Anticipate home, watch for needs
[2024-11-16] MEDS: LASIX 40 MG IV (19:11)
--- NOTE | 2024-11-16 19:20 | PTCARENOTE ---
Pt arrived to [id number] from ED, AAOx3, no complaints of pain. VSS, oriented to room with call mcclure in reach. Pt has cochlear implants that are being charged at her bedside.
[2024-11-16] MEDS: DUONEB 3 ML INH (19:50)
[2024-11-16] MEDS: TOPROL XL 12.5 MG PO (20:47)
[2024-11-16] MEDS: LIPITOR 80 MG PO (22:27)
[2024-11-16] MEDS: ZETIA 10 MG PO (22:27)
[2024-11-16] MEDS: PROZAC 20 MG PO (22:28)
[2024-11-16] MEDS: TYLENOL 500 MG PO (22:28)
[2024-11-16] MEDS: BENADRYL 25 MG PO (22:28)
[2024-11-16] MEDS: MELATONIN PO (23:53)
[2024-11-17 03:18] VITALS: BP 110/69
[2024-11-17 05:40] VITALS: BMI 20.1
[2024-11-17 06:00] VITALS: BMI 20.1
[2024-11-17 06:19] LABS: Blood Urea Nitrogen 29 mg/dl (7-17); Calcium 8.1 mg/dl (8.4-10.2); Carbon Dioxide 25 mmol/L (22-30); Chloride 100 mmol/L (98-107); Estimated Creatinine Clearance 27 ml/min; Glucose 83 mg/dl (70-99); HDL Cholesterol 21 mg/dl; LDL Cholesterol, Calculated 21 mg/dl; Magnesium 2.0 mg/dl (1.6-2.3); Potassium 3.6 mmol/L (3.5-5.1); Sodium 133 mmol/L (135-145); Very Low Density Lipoprotein 25 mg/dl (0-30); eGFR 32.06
[2024-11-17 07:18] VITALS: BP 102/61
[2024-11-17] MEDS: STRIVERDI RESPIMAT 2 PUFF INH (08:01)
[2024-11-17] MEDS: SPIRIVA RESPIMAT 2.5 MCG 2 PUFF INH (08:01)
[2024-11-17] MEDS: FARXIGA 10 MG PO (08:58)
[2024-11-17] MEDS: PROTONIX 40 MG PO (08:58)
[2024-11-17] MEDS: LASIX IV (08:58)
[2024-11-17] MEDS: TOPROL XL 12.5 MG PO ×2 (08:58→20:25)
[2024-11-17] MEDS: PACERONE 200 MG PO (08:58)
[2024-11-17] MEDS: B COMPLEX w/VITAMIN C 1 CAPLET PO (08:58)
--- NOTE | 2024-11-17 09:53 | W.PN.HOSP.TC ---
Today's Communication/Plan
-
see a/p
Assessment / Plan
Assessment / Plan
Physical Exam
General: No acute distress, appears comfortable at this time.
HEENT: NormoCephalic, Moist mucous membranes and Atraumatic
Respiratory: clear to auscultation b/l
Cardiac: S1/S2 and Regular Rhythm; No Murmur or Rub
GI: Soft, Non Tender, Non Distended and Normal Bowel Sounds; No Organomegaly
Musculoskeletal: No Clubbing, No Cyanosis and trace pitting edema lower ext's b/l
Skin: No Rash
Neuro: AO x 3 Conversant Coherent
69F A-fib, bladder cancer, lung cancer, hypertension, hyperlipidemia p/w exertional SOB wt gain for past one week. Patient gained 7 pounds in 1 week. Patient also reported lightheadedness, headache. Her Lasix was increased to 20 twice a day outpt
with no improvement in her symptoms. BNP elevated, patient admitted for further management CHF exacerbation
# Acute exacerbation of heart failure
- BNP 47761
- Diuretics continued
-Jardiance continued
- Strict CLAUDE, daily weight, fluid restriction
- ECHO appreciated EF 50-55% no significant change from prior ECHO September 2023
- Cardiology consult appreciated cont Lasix diuresis
- Chest x-ray appreciated pneumonia vs pulm edema (with significant improvement symptoms on diuresis, more likely pulm edema)
# Anemia possibly hemodiluted
# History of iron deficiency anemia
# History of thrombocytosis
- No active bleeding
- Continue to monitor
# Chronic leukocytosis
- Patient is afebrile
- Continue to monitor
# Hyponatremia likely hypervolemic
# CKD stage IIIb
- Fluid restriction
-cont to monitor
#CAD
-Continue Zetia and statin along with beta-blockade
-Eliquis on hold at this time d/t anemia
#Paroxysmal atrial fibrillation in sinus rhythm on amiodarone, b-chau
-Eliquis on hold at this time d/t anemia
# Anxiety
-Prozac continued
GERD Husain's esophagus
Continue PPIs twice daily
#History of lung CA outpatient follow-up
- Nebs from home continue
- follows w/ [facility]
# DVT prophylaxis
-SCD
# CODE STATUS
- Full code
I spent a total of 50 minutes with the patient or on the floor. More than 50% of this time involved counseling and coordination of care.
Anticipated Discharge: 24 - 48 hours
Subjective/Interval History
-
Date of Service: November 17, 2024
No acute distress, sitting up comfortably in bed. Reports overall, significant improvement in symptoms.
Objective Data
-
Labs:
Laboratory Results
11/17/24
05:04
Sodium 133 L
Potassium 3.6
Chloride 100
Carbon Dioxide 25
BUN 29 H
Creatinine 1.7 H
Glucose 83
Calcium 8.1 L
Vital Signs:
Vital Signs
Temp Pulse Resp BP Pulse Ox
97.7 F 67 16 102/61 96
11/17/24 07:18 11/17/24 07:18 11/17/24 08:05 11/17/24 07:18 11/17/24 08:05
I&O
11/16/24 11/17/24 11/18/24
06:59 06:59 06:59
Intake Total 240 / 240
Balance 240 / 240
[2024-11-17 11:39] VITALS: BP 101/52
[2024-11-17 13:07] LABS: Hematocrit 25.2 % (37.0-47.0); Hemoglobin 7.3 g/dL (12.0-16.0); Mean Corp Hgb Conc. 29.0 g/dL (33.0-37.0); Mean Corpuscular Volume 79.5 fL (81.0-99.0); Platelet Count 442 10^3/uL (130-400); Red Cell Dist. Width 24.4 % (11.5-14.5)
--- NOTE | 2024-11-17 14:04 | W.PN.CARDCBS ---
Addendum entered and electronically signed by Matthias Meléndez MD 11/17/24 15:08:
I saw and examined the patient.
The TREAD BUILDER or PA's note was reviewed and I agree with the note.
Comment: General: Well developed, well nourished in NAD.
Neck: Supple, no JVD, HJR, carotids +2 B/L, no bruits bilaterally.
Heart: Non displaced PMI, RRR, no murmurs, No S3, S4, no rubs.
Lungs: Scattered rhonchi
Abdomen: Normal bowel sounds, soft, non-tender, non-distended.
Extremities: No clubbing, cyanosis or edema bilaterally.
Neuro: Grossly nonfocal, awake, alert and oriented x3.
She feels much better. Continue IV Lasix and consider change to oral Lasix in a.m. Follow creatinine closely. Likely will need transfusion.Check echo. Continue to hold Eliquis.
Original Note:
Today's Communication / Plan
-
Continue IV Lasix
Follow creatinine
check follow-up echo
Hold Eliquis. Follow hemoglobin
Impression / Plan
-
PCP: Dr. Kwon
Phone Engineer: Dr. Meléndez
Impression:
Presented with SOB, weight gain
Acute on chronic HFpEF
Anemia, hgb 7.2
CAD
Circumflex stent 2010
SODA FLAKER of the RCA and borderline 50-60% mid LAD stenosis previously treated medically with patent circumflex stent by cath 07/09/22
s/p 3.0 mm [place] FAHAD to mid LAD 11/05/22
Takotsubo CM 07/2023
Recovered ischemic cardiomyopathy with EF 50% by echo 09/2023
Mod to severe MR by echo 09/2023
Paroxysmal AF
Chronic Eliquis OAC
Anemia
Resection of bladder tumor 07/16/22
h/o hematuria 06/2022
h/o lung cancer with bilateral lobectomies - L lobectomy 06/2011, RUL 05/2026
Carotid stenosis
Cochlear implants 2016
h/o GI bleeding 06/2022, 11/2023 (angiodysplastic lesions with stigmata of recent bleeding in duodenum by EGD)
Echo 02/27/21: LV: Normal size and function.� EF 50-55%.� Possible basal inferior HK.� RV: Normal, LA: Severely dilated, RA: Normal, MV: Moderate MR, AV: Sclerotic.� Trace AI.� TV: Mild TR with PAP 25 mmHg
Echo 07/07/22: LV: EF 35%.� Global HK with severe HK to akinesis of the basal and mid inferior and inferolateral segments.� Severe HK of the basal and mid anterior and anteroseptal.� Stage II diastolic dysfunction.� RV: Mildly dilated, LA: Severely
dilated, RA: Mildly dilated, MV: Mild to moderate eccentric MR, AV: Trace AI.� TV: Mild TR with PAP 4310/
GEORGINA 07/10/22: LV: Mildly reduced EF estimated 45-50%.� RV: Dilated, LA: Dilated, RA: Dilated, GEORGI: No thrombus, MV: Prolapse of A3-P3 segments with moderate eccentric MR.� ERO 0.2 cm� and regurgitant volume 32 by PISA method.� AV: Trace AI, TV: Mild
TR with PAP 32 mmHg
Echo 03/20/23: EF 45%, hypokinesis basal to mid anteroseptal, basal to mid inferior and inferolateral black, stage I diastolic dysfunction, mod MR
Echo 07/22/23: Ejection fraction 30 to 35%, global hypokinesis with anteroseptal, basal inferior, and basal septal akinesis., Moderate to severe MR, mild TR PA systolic of 53 mmHg
Echo 09/12/2023: EF visually 50 to 55%, 49% by Goldstein's, stage II diastolic dysfunction, severe LA dilation, moderate to severe eccentric MR, mild AI, moderate TR, PAP 58 mmHg
Echo 06/26/2024: EF 50-55%, stage II diastolic dysfunction, moderate posterior MR, trace AR, mild to moderate TR, estimated PAP 42 mmHg
Echo 11/17/2024: Study pending
Plan:
-presented with SOB and weight gain
-proBNP >76722. weight trending down on IV lasix 40mg BID. dry weight previously felt to be 120 pounds. Cr 1.7 on 11/17, follow with diuresis
-follow up echo ordered, last from 06/2024 reviewed, preserved EF and mod MR
-in SR with PACs on review of tele overnight. continue toprol, amiodarone.
-OP eliquis 2.5mg BID on hold given hgb 7.3. she has history of GI bleeding. consider transfusion. iron repletion
-Hypotension noted at recent OV 11/12 and lisinopril stopped. BP remains borderline low, but stable. continue toprol
-continue SGLT2 inhibitor
HPI: Kyleigh is a 69 year old female with PMH of CAD, CM, MR, paroxysmal Afib, anemia, lung cancer, carotid stenosis, and prior GIB. Presented to [facility] ER for evaluation of worsening SOB and weight gain. She was seen in the cardiology office on 11/12
and noted weight gain and SOB. She was placed on higher dose lasix 20mg BID. She was also noted to be hypotensive and her lisinopril was stopped to allow for more aggressive diuresis. Despite this, she noted over the weekend she continued to gain
weight and breathing continued to worsen. She notes she has had no shortness of breath at rest and has had no orthopnea/PND. She called the cardiology office this AM to report worsening SOB and weight gain, and she was instructed to come to the ER.
She states leading up to the start of these symptoms, she has had no significant changes to diet, but notes with the heat she may have been drinking more water than normal. In ER, she was noted to have evidence of acute heart failure and was
admitted. Cardiology consulted for evaluation. Notes she feels well currently while sitting on stretcher in ER, after being given a dose of IV lasix.
Progress Note - Phone Engineer
Subjective
Date of Service: November 17, 2024
No pain. Weight trending down
Objective
Labs:
11/17/24 12:41
11/17/24 05:04
Labs
Hgb 7.3 g/dL (12.0-16.0) L 11/17/24 12:41
Hct 25.2 % (37.0-47.0) L 11/17/24 12:41
Plt Count 442 10^3/uL (130-400) H 11/17/24 12:41
Sodium 133 mmol/L (135-145) L 11/17/24 05:04
Potassium 3.6 mmol/L (3.5-5.1) 11/17/24 05:04
BUN 29 mg/dl (7-17) H 11/17/24 05:04
Creatinine 1.7 mg/dL (0.6-1.0) H 11/17/24 05:04
Glucose 83 mg/dl (70-99) 11/17/24 05:04
Troponins
11/16/24
11:21
Troponin I 0.012
Vital Signs and I&O:
Vital Signs
Temp Pulse Resp BP Pulse Ox
98.3 F 70 16 101/52 98
11/17/24 11:39 11/17/24 11:39 11/17/24 11:39 11/17/24 11:39 11/17/24 11:39
Vital Signs
Temp Pulse Resp BP Pulse Ox
98.3 F 70 16 101/52 98
11/17/24 11:39 11/17/24 11:39 11/17/24 11:39 11/17/24 11:39 11/17/24 11:39
Intake & Output
11/15/24 11/16/24 11/17/24 11/18/24
07:59 07:59 07:59 07:59
Intake Total 240 / 240
Balance 240 / 240
[2024-11-17] MEDS: KCL 20 MEQ PO (14:41)
[2024-11-17 15:13] VITALS: BP 111/58
[2024-11-17 19:55] VITALS: BP 112/60
[2024-11-17] MEDS: DUONEB 3 ML INH (20:10)
[2024-11-17] MEDS: ZETIA 10 MG PO (21:32)
[2024-11-17] MEDS: LIPITOR 80 MG PO (21:32)
[2024-11-17] MEDS: PROZAC 20 MG PO (21:32)
[2024-11-17] MEDS: BENADRYL 25 MG PO (21:32)
[2024-11-17] MEDS: TYLENOL 500 MG PO (21:32)
[2024-11-17] MEDS: MELATONIN PO (22:10)
[2024-11-17 23:04] VITALS: BP 104/60
[2024-11-18] VITALS (8 sets, daily range): BP systolic 103–119; BP diastolic 57–67; BMI 20.3
[2024-11-18] MEDS: PACERONE 200 MG PO (08:11)
[2024-11-18] MEDS: PROTONIX 40 MG PO (08:11)
[2024-11-18] MEDS: B COMPLEX w/VITAMIN C 1 CAPLET PO (08:11)
[2024-11-18] MEDS: FARXIGA 10 MG PO (08:11)
[2024-11-18] MEDS: TOPROL XL 12.5 MG PO ×2 (08:11→19:49)
[2024-11-18] MEDS: STRIVERDI RESPIMAT 2 PUFF INH (08:16)
[2024-11-18] MEDS: SPIRIVA RESPIMAT 2.5 MCG 2 PUFF INH (08:16)
[2024-11-18 08:35] LABS: Blood Urea Nitrogen 29 mg/dl (7-17); Calcium 8.3 mg/dl (8.4-10.2); Carbon Dioxide 26 mmol/L (22-30); Chloride 101 mmol/L (98-107); Estimated Creatinine Clearance 29 ml/min; Glucose 86 mg/dl (70-99); Magnesium 2.2 mg/dl (1.6-2.3); Potassium 4.1 mmol/L (3.5-5.1); Sodium 134 mmol/L (135-145); eGFR 34.48
[2024-11-18 08:45] LABS: Total Iron Binding Capacity 408 ug/dl (265-497)
[2024-11-18 08:48] LABS: Hematocrit 23.6 % (37.0-47.0); Hemoglobin 7.0 g/dL (12.0-16.0); Mean Corp Hgb Conc. 29.7 g/dL (33.0-37.0); Mean Corpuscular Volume 79.7 fL (81.0-99.0); Platelet Count 376 10^3/uL (130-400); Red Cell Dist. Width 24.1 % (11.5-14.5)
--- NOTE | 2024-11-18 08:57 | W.PN.HOSP.TC ---
Today's Communication/Plan
-
PRBC transfusion
npo after midnight for EGD
cont diuresis
Assessment / Plan
Assessment / Plan
Physical Exam
General: No acute distress, appears comfortable at this time.
HEENT: NormoCephalic, Moist mucous membranes and Atraumatic
Respiratory: clear to auscultation b/l
Cardiac: S1/S2 and Regular Rhythm; No Murmur or Rub
GI: Soft, Non Tender, Non Distended and Normal Bowel Sounds; No Organomegaly
Musculoskeletal: No Clubbing, No Cyanosis and trace pitting edema lower ext's b/l
Skin: No Rash
Neuro: AO x 3 Conversant Coherent
69F A-fib, bladder cancer, lung cancer, hypertension, hyperlipidemia p/w exertional SOB wt gain for past one week. Patient gained 7 pounds in 1 week. Patient also reported lightheadedness, headache. Her Lasix was increased to 20 twice a day outpt
with no improvement in her symptoms. BNP elevated, patient admitted for further management CHF exacerbation
# Acute exacerbation of heart failure
- BNP 24547
- Diuretics continued
-Jardiance continued
- Strict CLAUDE, daily weight, fluid restriction
- ECHO appreciated EF 50-55% no significant change from prior ECHO September 2023
- Cardiology consult appreciated cont Lasix diuresis
- Chest x-ray appreciated pneumonia vs pulm edema (with significant improvement symptoms on diuresis, more likely pulm edema)
# Anemia
# Severe iron deficiency anemia
# History of thrombocytosis
- No active bleeding
- 1PRBC transfusion given for Hgb 7.0 11/18
-GI eval appreciated npo after midnight for EGD PPI BID
# Chronic leukocytosis
- Patient is afebrile
- Continue to monitor
# Hyponatremia likely hypervolemic
# CKD stage IIIb
- Fluid restriction
-cont to monitor
#CAD
-Continue Zetia and statin along with beta-blockade
-Eliquis on hold at this time d/t anemia
#Paroxysmal atrial fibrillation in sinus rhythm on amiodarone, b-chau
-Eliquis on hold at this time d/t anemia
# Anxiety
-Prozac continued
GERD Husain's esophagus
Continue PPIs twice daily
#History of lung CA outpatient follow-up
- Nebs from home continue
- follows w/ [facility]
# DVT prophylaxis
-SCD
# CODE STATUS
- Full code
I spent a total of 45 minutes with the patient or on the floor. More than 50% of this time involved counseling and coordination of care.
Anticipated Discharge: 24 - 48 hours
Subjective/Interval History
-
Date of Service: November 18, 2024
No acute distress, resting comfortably in bed. overall reports feeling well, Denies new acute issues at this time.
Objective Data
-
Labs:
Laboratory Results
11/18/24
06:20
WBC 19.7 H
Hgb 7.0 L
Hct 23.6 L
Plt Count 376
Sodium 134 L
Potassium 4.1
Chloride 101
Carbon Dioxide 26
BUN 29 H
Creatinine 1.6 H
Glucose 86
Calcium 8.3 L
Vital Signs:
Vital Signs
Temp Pulse Resp BP Pulse Ox
97.4 F 68 16 105/65 94
11/18/24 03:40 11/18/24 03:40 11/18/24 08:19 11/18/24 03:40 11/18/24 08:19
I&O
11/17/24 11/18/24 11/19/24
06:59 06:59 06:59
Intake Total 240 / 240 720 / 720
Balance 240 / 240 720 / 720
[2024-11-18 09:07] LABS: Ferritin 50.2 ng/ml (11.1-264.0)
[2024-11-18 09:38] LABS: Folate 3.0 ng/ml (2.76-20); Vitamin B12 > 1000 pg/ml (239-931)
--- NOTE | 2024-11-18 11:00 | CON.GI ---
Consultation
-
Date/Time Consultation Requested: 11/18/2024
Date/Time Consultation Performed: 11/18/2024
Medical History
Chief Complaint / HPI
Chief Complaint: Shortness of breath and weight gain
History of Present Illness:
Ms. Arizmendi is a 69-year-old female who presented to the [facility] ER for evaluation of worsening shortness of breath and weight gain, she had recently increased dose of Lasix, despite this over the weekend she had weight gain and breathing continued to
worsen. In the ER, she was noted to be in acute heart failure and cardiology was consulted for evaluation. During her workup it was noticed that her hemoglobin was down to 7.2 so her Eliquis was held. She has been taking iron supplements and her
stool has always been dark in color because of that. She did not notice any bright red blood and did not had any blood in vomitus as well. She has alternating bowel habits between diarrhea and constipation but she denies any abdominal pain or
recent weight loss. She considers her diet well-balanced, eats salmon, chicken, seafood, occasionally beef and has wide variety of fruits and vegetables in her diet. She denies any issues with eating gluten or dairy products. She has been taking
iron supplements on alternate days without any issues but still her hemoglobin was noted to be down from prior.
She denies any shortness of breath at this time since having increased doses of Lasix during the hospital stay. Currently remains asymptomatic.
She has had comprehensive celiac panel in the past year and it was negative. Last year she had 2 admissions in November and January for anemia due to GI bleed secondary to AVMs of small intestine. Both admissions required blood transfusions, 2
units in November and 4 units in January 2024. An extensive evaluation was done including an EGD and colonoscopy, EGD showed 4 diminutive angiodysplastic lesions with stigmata of bleeding in second portion of duodenum, coagulation and hemostasis
using monopolar probe was successful. Subsequent colonoscopy revealed polyps in the descending colon that were resected and a repeat colonoscopy done in April 2024 was within normal limits. She was supposed to have a follow-up EGD in August 2024
for Husain esophagus which is still pending due to insurance issues and she is due for surveillance colonoscopy in April 2025
Past Medical History
Past Medical History: Arrhythmias (Paroxysmal atrial fibrillation), CAD (Cardiomyopathy, MR), Cancer (Lung cancer, bladder cancer), HTN, Hypercholesterolemia, Valvular Disease (MR, carotid stenosis) and Other (Prior GI bleed, anemia)
Past Surgical History: Other (Cardiac stents, ORIF right leg fracture, right upper lung lobectomy, , cochlear implant, TURBT, cataract surgery,)
Social History
Tobacco: Non-Smoker
Alcohol: None
Drug: None
Employment: Retired
Family History
Family History: Reviewed & Not Pertinent
Allergies / Home Medications
Allergy/AdvReac Type Severity Reaction Status Date / Time
pollen extracts Allergy runny Verified 11/16/24 10:14
nose,itchy
eyes
�Medication �Instructions �Recorded
atorvastatin 80 mg tablet (Lipitor) 80 mg PO HS High cholesterol 04/07/22
ezetimibe 10 mg tablet (Zetia) 10 mg PO HS High cholesterol 04/07/22
fluoxetine 20 mg capsule (Prozac) 20 mg PO HS Mental Health 04/07/22
empagliflozin 10 mg tablet 10 mg PO DAILY heart protection 02/18/23
(Jardiance)
furosemide 20 mg tablet 20 mg PO BID Fluid 07/22/23
Retention/Swelling
amiodarone 200 mg tablet 200 mg PO DAILY Arrhythmia 09/21/23
vibegron 75 mg tablet (Gemtesa) 75 mg PO DAILY Urinary Issue 04/22/24
metoprolol succinate 25 mg 12.5 mg PO BID Heart Failure 06/25/24
tablet,extended release 24 hr
(Toprol XL)
therapeutic multivitamin 1 tab PO DAILY Supplement 06/25/24
umeclidinium 62.5 mcg-vilanterol 1 inh inhalation R DAILY 06/25/24
25 mcg/actuation powdr for Lung/Breathing Issues
inhalation (Anoro Ellipta)
apixaban 2.5 mg tablet (Eliquis) 2.5 mg PO BID Blood Clot 11/16/24
Prevention/Tx
diphenhydramine 25 1 tab PO HS Sleep 11/16/24
mg-acetaminophen 500 mg tablet
(Acetaminophen PM)
ipratropium 0.5 mg-albuterol 3 mg 3 ml inhalation R HS 11/16/24
(2.5 mg base)/3 mL nebulization Lung/Breathing Issues
soln
melatonin 10 mg tablet 10 mg PO HS Sleep 11/16/24
pantoprazole 40 mg tablet,delayed 40 mg PO DAILY Gastrointestinal 11/16/24
release (Protonix) Issue
vitamin B complex 1 tab PO DAILY Supplement 11/16/24
Review of Systems
-
All other systems: A 12 pt ROS was Negative except as stated above in HPI
Vital Signs
Temp Pulse Resp BP Pulse Ox
98.2 F 72 16 109/59 94
11/18/24 07:00 11/18/24 07:00 11/18/24 08:19 11/18/24 07:00 11/18/24 08:19
Physical Exam
Exam
General: No Apparent Distress and Comfortable
HEENT: Moist Mucous Membranes and Other (Conjunctival pallor)
Respiratory: Clear; Negative Wheezes, Rales or Rhonchi
Cardiac: S1/S2 and Regular Rhythm
GI: Soft, Non Tender, Non Distended and Normal Bowel Sounds
Musculoskeletal: No Clubbing, No Cyanosis and No Edema
Skin: Warm and Dry
Neuro: Awake and Nonfocal/Grossly Intact
Psych: Calm
Results
WBC 19.7 10^3/uL (4.8-10.8) H 11/18/24 06:20
Hgb 7.0 g/dL (12.0-16.0) L 11/18/24 06:20
Hct 23.6 % (37.0-47.0) L 11/18/24 06:20
MCV 79.7 fL (81.0-99.0) L 11/18/24 06:20
Plt Count 376 10^3/uL (130-400) 11/18/24 06:20
Absolute Neuts (auto) 19.8 10^3/uL (1.4-6.5) H 11/16/24 11:21
Sodium 134 mmol/L (135-145) L 11/18/24 06:20
Potassium 4.1 mmol/L (3.5-5.1) 11/18/24 06:20
Chloride 101 mmol/L (98-107) 11/18/24 06:20
Carbon Dioxide 26 mmol/L (22-30) 11/18/24 06:20
BUN 29 mg/dl (7-17) H 11/18/24 06:20
Creatinine 1.6 mg/dL (0.6-1.0) H 11/18/24 06:20
Calcium 8.3 mg/dl (8.4-10.2) L 11/18/24 06:20
Total Bilirubin 1.0 mg/dl (0.2-1.3) 11/16/24 11:21
AST 34 U/L (14-36) 11/16/24 11:21
ALT 22 U/L (0-35) 11/16/24 11:21
Alkaline Phosphatase 98 U/L (38-126) 11/16/24 11:21
Diagnostic Image Results:
Prior GI Procedures:
EGD:
EGD July/2022
2 tongues of salmon-colored mucosa present from 39 to 40 cm without any other visible abnormalities-suggestive of short segment Husain's esophagus, biopsy consistent with fragments of pulmonary mucosa with mild chronic inflammation
Focal intestinal metaplasia without dysplasia
Next surveillance EGD pending this year next
Colonoscopy:
01/2024
2 subcentimeter polyps consistent with tubular adenomas along with thickened granular mucosa biopsied revealing adenomatous polyps
04/2024
Impression: - Hemorrhoids found on perianal exam.
- One 13 mm polyp in the rectum, removed with mucosal
resection. Resected and retrieved. Treated with argon
plasma coagulation (APC).
- Scar in the distal rectum.
- Internal hemorrhoids.
- Mucosal resection was performed. Resection and
retrieval were complete.
Surveillance colonoscopy pending this year in April
Assessment / Plan
-
Impression
Patient is a 69-year-old female admitted with acute on chronic heart failure. Blood work revealed iron deficiency anemia. GI consulted for recommendations
Assessment/plan
Iron deficiency anemia
Low ferritin, normal vitamin B12, normal TFTs
Test for H. pylori
Fecal fat test
Celiac panel negative
Reports no lactose intolerance
IBS
History of AVMs and angiodysplasias in the past year
History of Husain's esophagus
History of GERD
CKD stage IIIb
Acute on chronic heart failure
Currently asymptomatic
Vitally stable
Chronic leukocytosis
Creatinine 1.6
No active bleeding
Has been on iron supplementation, iron deficiency anemia likely refractory to iron supplementation-continue IV iron replacement
Add vitamin C to increase bioavailability and mobilization of iron
Patient has history of CKD-increases the risks of angiodysplasias
Upper GI endoscopy and colonoscopy-to evaluate for any bleeding AVMs/angiodysplasias
Cardiology considering Watchman
Continue PPIs
1 pack of blood transfused this morning
Continue to trend H&H-consider transfusion if hemoglobin less than 7
Eliquis on hold
INR and blood counts normal
Check fibrinogen levels
CRP, ESR
DVT prophylaxis-SCDs
CODE STATUS-full code
-
-
Thank you for consultation and allowing me to participate in the patient's care. Please call the contract writer GI physician during the after hours with any questions or concerns.
[2024-11-18 11:01] LABS: Iron < 20 ug/dl (37-170)
[2024-11-18] MEDS: LASIX 20 MG IV (11:48)
--- NOTE | 2024-11-18 12:27 | W.PN.CARDCBS ---
Addendum entered and electronically signed by Matthias Meléndez MD 11/18/24 14:03:
I saw and examined the patient.
The MANUFACTURING ENGINEER ASSEMBLY or PA's note was reviewed and I agree with the note.
Comment: General: Well developed, well nourished in NAD.
Neck: Supple, no JVD, HJR, carotids +2 B/L, no bruits bilaterally.
Heart: Non displaced PMI, RRR, no murmurs, No S3, S4, no rubs.
Lungs: Scattered rhonchi at the bases
Extremities: No clubbing, cyanosis or edema bilaterally.
Neuro: Grossly nonfocal, awake, alert and oriented x3.
She remains severely anemic. Recommend transfusion which is being planned. She was scheduled to see GI in October 2024 but could not afford payment for endoscopy. Recommend GI consultation to evaluate source of bleeding while Eliquis is on hold.
Continue IV Lasix for now consider change to oral Lasix in the next 24 to 48 hours. Creatinine is relatively stable at 1.6. Echocardiogram reveals right ventricular hypokinesis which may be multifactorial. Continue diuresis.
Original Note:
Today's Communication / Plan
-
GI eval
1 U PRBCs
IV lasix
Impression / Plan
-
PCP: Dr. Kwon
[employer] Table Assembler: Dr. Meléndez
Impression:
Presented with SOB, weight gain
Acute on chronic HFpEF
Anemia, hgb 7.2
CAD
Circumflex stent 2010
[employer]ATOR of the RCA and borderline 50-60% mid LAD stenosis previously treated medically with patent circumflex stent by cath 07/09/22
s/p 3.0 mm Ino FAHAD to mid LAD 11/05/22
Takotsubo CM 07/2023
Recovered ischemic cardiomyopathy with EF 50% by echo 09/2023
Mod to severe MR by echo 09/2023
Paroxysmal AF
Chronic Eliquis OAC
Anemia
Resection of bladder tumor 07/16/22
h/o hematuria 06/2022
h/o lung cancer with bilateral lobectomies - L lobectomy 06/2011, RUL 05/2026
Carotid stenosis
Cochlear implants 2016
h/o GI bleeding 06/2022, 11/2023 (angiodysplastic lesions with stigmata of recent bleeding in duodenum by EGD)
Echo 02/27/21: LV: Normal size and function.� EF 50-55%.� Possible basal inferior HK.� RV: Normal, LA: Severely dilated, RA: Normal, MV: Moderate MR, AV: Sclerotic.� Trace AI.� TV: Mild TR with PAP 25 mmHg
Echo 07/07/22: LV: EF 35%.� Global HK with severe HK to akinesis of the basal and mid inferior and inferolateral segments.� Severe HK of the basal and mid anterior and anteroseptal.� Stage II diastolic dysfunction.� RV: Mildly dilated, LA: Severely
dilated, RA: Mildly dilated, MV: Mild to moderate eccentric MR, AV: Trace AI.� TV: Mild TR with PAP 4310/
GEORGINA 07/10/22: LV: Mildly reduced EF estimated 45-50%.� RV: Dilated, LA: Dilated, RA: Dilated, GEORGI: No thrombus, MV: Prolapse of A3-P3 segments with moderate eccentric MR.� ERO 0.2 cm� and regurgitant volume 32 by PISA method.� AV: Trace AI, TV: Mild
TR with PAP 32 mmHg
Echo 03/20/23: EF 45%, hypokinesis basal to mid anteroseptal, basal to mid inferior and inferolateral black, stage I diastolic dysfunction, mod MR
Echo 07/22/23: Ejection fraction 30 to 35%, global hypokinesis with anteroseptal, basal inferior, and basal septal akinesis., Moderate to severe MR, mild TR PA systolic of 53 mmHg
Echo 09/12/2023: EF visually 50 to 55%, 49% by Goldstein's, stage II diastolic dysfunction, severe LA dilation, moderate to severe eccentric MR, mild AI, moderate TR, PAP 58 mmHg
Echo 06/26/2024: EF 50-55%, stage II diastolic dysfunction, moderate posterior MR, trace AR, mild to moderate TR, estimated PAP 42 mmHg
Echo 11/17/2024: EF 50 to 55%, mild concentric LVH, stage II diastolic dysfunction, mild MAC, moderate posterior eccentric MR, trace AR, mild to moderate TR, PAP 42 mmHg, mildly dilated RA, no significant change compared to prior
Plan:
-presented with SOB and weight gain
-proBNP >76651. IV lasix had been held yesterday, now resumed. dry weight previously felt to be 120 pounds. Cr 1.6 on 11/18
-follow up echo stable with preserved EF and mod MR
-in SR with occasional PACs/PVCs on review of tele overnight. continue toprol, amiodarone.
-OP eliquis 2.5mg BID on hold given hgb down to 7.0. she has history of GI bleeding. for 1 U PRBCs today. iron repletion. GI to evaluate, she was reportedly supposed to get follow-up EGD 08/2024, however due to insurance issues has not been able to
complete yet
-Hypotension noted at recent OV 11/12 and lisinopril stopped. BP remains borderline low, but stable. continue toprol
-continue SGLT2 inhibitor
HPI: Kyleigh is a 69 year old female with PMH of CAD, CM, MR, paroxysmal Afib, anemia, lung cancer, carotid stenosis, and prior GIB. Presented to [facility] ER for evaluation of worsening SOB and weight gain. She was seen in the cardiology office on 11/12
and noted weight gain and SOB. She was placed on higher dose lasix 20mg BID. She was also noted to be hypotensive and her lisinopril was stopped to allow for more aggressive diuresis. Despite this, she noted over the weekend she continued to gain
weight and breathing continued to worsen. She notes she has had no shortness of breath at rest and has had no orthopnea/PND. She called the cardiology office this AM to report worsening SOB and weight gain, and she was instructed to come to the ER.
She states leading up to the start of these symptoms, she has had no significant changes to diet, but notes with the heat she may have been drinking more water than normal. In ER, she was noted to have evidence of acute heart failure and was
admitted. Cardiology consulted for evaluation. Notes she feels well currently while sitting on stretcher in ER, after being given a dose of IV lasix.
Progress Note - [employer] Table [employer]er
Subjective
Date of Service: November 18, 2024
no issues overnight
Objective
Labs:
11/18/24 06:20
11/18/24 06:20
Labs
Hgb 7.0 g/dL (12.0-16.0) L 11/18/24 06:20
Hct 23.6 % (37.0-47.0) L 11/18/24 06:20
Plt Count 376 10^3/uL (130-400) 11/18/24 06:20
Sodium 134 mmol/L (135-145) L 11/18/24 06:20
Potassium 4.1 mmol/L (3.5-5.1) 11/18/24 06:20
BUN 29 mg/dl (7-17) H 11/18/24 06:20
Creatinine 1.6 mg/dL (0.6-1.0) H 11/18/24 06:20
Glucose 86 mg/dl (70-99) 11/18/24 06:20
Troponins
11/16/24
11:21
Troponin I 0.012
Vital Signs and I&O:
Vital Signs
Temp Pulse Resp BP Pulse Ox
97.6 F 70 20 111/66 94
11/18/24 11:42 11/18/24 11:42 11/18/24 11:42 11/18/24 11:42 11/18/24 08:19
Vital Signs
Temp Pulse Resp BP Pulse Ox
97.6 F 70 20 111/66 94
11/18/24 11:42 11/18/24 11:42 11/18/24 11:42 11/18/24 11:42 11/18/24 08:19
Intake & Output
11/16/24 11/17/24 11/18/24 11/19/24
07:59 07:59 07:59 07:59
Intake Total 240 / 240 720 / 720 0 / 0
Balance 240 / 240 720 / 720 0 / 0
--- NOTE | 2024-11-18 12:40 | HFEDUCATE ---
69 yo female admitted with SOB and weight gain. Past medical history includes acute on chronic HFpEF, anemia, CAD, Takotsubo 08/03, moderate to severe MR by ECHO 10/03, paroxysmal AF, chronic eliquis, carotid stenosis. Her current echocardiogram
shows an ejection fraction of 50-55%. She lives at home with her stepdaughter. She reports following a low sodium diet and a 48oz fluid restriction per day. She has a scale and weighs herself daily.
I provided HF education and discussed the usual lifestyle recommendations. I advised she continue her low sodium diet of 2000-3000mg. per day and follow a 500-750mg. per meal restriction. I advised a 48 oz. fluid restriction per day and discussed
ways to achieve the recommendations. I also advised she continue weighing herself daily and monitoring for any slight weight gain. I reviewed how to monitor for exacerbations. We discussed other alarming symptoms to watch for and when to notify her
provider. We discussed need for medications.
Recommendations:
Continue all HF recommended medications as ordered on discharge.
Limit sodium intake to <500-750 mg. per meal.
Limit fluid intake to <48 oz per day.
Daily weights and contact provider for any weight gain >3lbs in one day or 5lbs in one week.
Follow up with provider as recommended.
[2024-11-18 13:32] LABS: C-Reactive Protein 28.80 mg/L (0.0-10.00)
[2024-11-18] MEDS: VITAMIN C 500 MG PO (14:12)
[2024-11-18] MEDS: FERRLECIT 110 MG IV (14:12)
--- NOTE | 2024-11-18 15:19 | CM ---
Chart reviewed. Care ongoing at this time
Cont IV Lasix
No CM needs at this time
Plan: Home when stable
[2024-11-18] MEDS: LASIX 40 MG IV (15:27)
[2024-11-18] MEDS: DUONEB 3 ML INH (19:35)
[2024-11-18] MEDS: LIPITOR 80 MG PO (21:38)
[2024-11-18] MEDS: BENADRYL 25 MG PO (21:38)
[2024-11-18] MEDS: MELATONIN 10 MG PO (21:38)
[2024-11-18] MEDS: TYLENOL 500 MG PO (21:39)
[2024-11-18] MEDS: ZETIA 10 MG PO (21:39)
[2024-11-18] MEDS: PROZAC 20 MG PO (21:42)
[2024-11-19] VITALS (16 sets, daily range): BP systolic 16–107; BP diastolic 44–60; PULSE 72–81; O2SAT 92; BMI 20.2
[2024-11-19] MEDS: SPIRIVA RESPIMAT 2.5 MCG 2 PUFF INH (07:27)
[2024-11-19] MEDS: STRIVERDI RESPIMAT 2 PUFF INH (07:27)
[2024-11-19] MEDS: PACERONE 200 MG PO (08:00)
[2024-11-19] MEDS: PROTONIX 40 MG PO (08:03)
[2024-11-19] MEDS: FARXIGA 10 MG PO (08:03)
[2024-11-19] MEDS: B COMPLEX w/VITAMIN C 1 CAPLET PO (08:03)
[2024-11-19] MEDS: TOPROL XL 12.5 MG PO (08:03)
[2024-11-19] MEDS: VITAMIN C 500 MG PO (08:04)
[2024-11-19] MEDS: LASIX 40 MG IV ×2 (08:04→17:02)
[2024-11-19 08:32] LABS: Hematocrit 26.2 % (37.0-47.0); Hemoglobin 8.0 g/dL (12.0-16.0); Mean Corp Hgb Conc. 30.5 g/dL (33.0-37.0); Mean Corpuscular Volume 79.6 fL (81.0-99.0); Platelet Count 378 10^3/uL (130-400); Red Cell Dist. Width 23.8 % (11.5-14.5)
[2024-11-19 08:44] LABS: Fibrinogen 491 MG/DL (199-459)
--- NOTE | 2024-11-19 09:03 | W.PN.HOSP.TC ---
Today's Communication/Plan
-
IV iron infusions
monitor H&H with restart Eliquis
Hematology eval requested
cont diuresis as per Cardio
Assessment / Plan
Assessment / Plan
Physical Exam
General: No acute distress, appears comfortable at this time.
HEENT: NormoCephalic, Moist mucous membranes and Atraumatic
Respiratory: clear to auscultation b/l
Cardiac: S1/S2 and Regular Rhythm; No Murmur or Rub
GI: Soft, Non Tender, Non Distended and Normal Bowel Sounds; No Organomegaly
Musculoskeletal: No Clubbing, No Cyanosis and trace pitting edema lower ext's b/l
Skin: No Rash
Neuro: AO x 3 Conversant Coherent
69F A-fib, bladder cancer, lung cancer, hypertension, hyperlipidemia p/w exertional SOB wt gain for past one week. Patient gained 7 pounds in 1 week. Patient also reported lightheadedness, headache. Her Lasix was increased to 20 twice a day outpt
with no improvement in her symptoms. BNP elevated, patient admitted for further management CHF exacerbation
# Acute exacerbation of heart failure
- BNP [id number]
- Diuretics continued
-Jardiance continued
- Strict CLAUDE, daily weight, fluid restriction
- ECHO appreciated EF 50-55% no significant change from prior ECHO September 2023
- Cardiology consult appreciated cont Lasix diuresis
- Chest x-ray appreciated pneumonia vs pulm edema (with significant improvement symptoms on diuresis, more likely pulm edema)
# Anemia
# Severe iron deficiency anemia
# History of thrombocytosis
- No active bleeding
- 1PRBC transfusion given for Hgb 7.0 11/18
- IV iron infusions
-GI eval appreciated EGD performed 11/19 unremarkable for source of bleeding, ok to resume Eliquis
-Hematology eval requested
# Chronic leukocytosis
- Patient is afebrile
- Continue to monitor
# Hyponatremia likely hypervolemic
# CKD stage IIIb
- Fluid restriction
-cont to monitor
#CAD
-Continue Zetia and statin along with beta-blockade
-Eliquis on hold at this time d/t anemia
#Paroxysmal atrial fibrillation in sinus rhythm on amiodarone, b-chau
-Eliquis restarted renally dosed for Cr and age
-monitor
# Anxiety
-Prozac continued
GERD Husain's esophagus
Continue PPIs twice daily
#History of lung CA outpatient follow-up
- Nebs from home continue
- follows w/ [facility]
# DVT prophylaxis
-SCD
# CODE STATUS
- Full code
I spent a total of 45 minutes with the patient or on the floor. More than 50% of this time involved counseling and coordination of care.
Anticipated Discharge: 24 - 48 hours
Subjective/Interval History
-
Date of Service: November 19, 2024
No acute distress, appears well, status post EGD today. Denies new acute issues at this time.
Objective Data
-
Labs:
Laboratory Results
11/19/24
06:24
WBC 17.8 H
Hgb 8.0 L
Hct 26.2 L
Plt Count 378
Sodium Pending
Potassium Pending
Chloride Pending
Carbon Dioxide Pending
BUN Pending
Creatinine Pending
Glucose Pending
Calcium Pending
Vital Signs:
Vital Signs
Temp Pulse Resp BP Pulse Ox
97.8 F 64 16 102/60 97
11/19/24 07:05 11/19/24 07:30 11/19/24 07:30 11/19/24 07:05 11/19/24 07:30
I&O
11/18/24 11/19/24 11/20/24
06:59 06:59 06:59
Intake Total 720 / 720 970 / 970
Balance 720 / 720 970 / 970
[2024-11-19 09:08] LABS: Blood Urea Nitrogen 28 mg/dl (7-17); Calcium 8.1 mg/dl (8.4-10.2); Carbon Dioxide 26 mmol/L (22-30); Chloride 100 mmol/L (98-107); Estimated Creatinine Clearance 30 ml/min; Glucose 81 mg/dl (70-99); Magnesium 2.0 mg/dl (1.6-2.3); Potassium 3.4 mmol/L (3.5-5.1); Sodium 133 mmol/L (135-145); eGFR 37.26
--- NOTE | 2024-11-19 12:46 | W.PN.UPDATE ---
Update Note
Progress Note Update
s/p EGD today-- no AVMs or other source of GI bleeding found. Biopsies taken of irregular z-line to r/o barretts.
-okay for regular diet
-can resume eliquis
-recent comprehensive GI workup was largely unremarkable
-consider hematology workup
-Trend H&H, transfuse for Hgb <8
-PPI PO daily on d/c
-outpatient f/u with Dr. Bursk
GI will sign off, please call with questions
[2024-11-19] MEDS: KLOR-CON 20 MEQ PO ×2 (13:04→19:41)
[2024-11-19] MEDS: FERRLECIT 110 MG IV (13:04)
--- NOTE | 2024-11-19 14:27 | W.PN.CARDCBS ---
Addendum entered and electronically signed by Khoa Ma MD 11/20/24 17:38:
69-year-old with HFpEF who presented on November 16 with acute on chronic HFpEF and hemoglobin 7.2.
PMH: CAD, circumflex stent in 2010, CANE LOADER RCA with 50-60% mid LAD stenosis, most recent cardiac catheterization 2022, Takotsubo cardiomyopathy 2023 with improved EF, moderate to severe MR, paroxysmal A-fib, history of urothelial cancer, bilateral lung
cancer, carotid stenosis, cochlear implants, history of GI bleeding with angiodysplasia
Current meds: Amiodarone 200 mg a day, atorvastatin 80 mg a day diphenhydramine 25 mg at bedtime, dapagliflozin 10 mg a day, ezetimibe 10 mg a day, Prozac 20 mg daily, DuoNebs, melatonin, metoprolol ER 12.5 mg twice daily, Gemtesa, furosemide 40 mg
IV twice daily, Spiriva, ILD, iron, pantoprazole, potassium chloride 20 mill equivalents twice daily, apixaban 2.5 mg twice daily, Detrol LA
93/57, pulse 72 respiratory rate 16, Weight is 53.7 kg down 1.3 kg kg, currently offers no complaints, no distress, head neck exam unremarkable, lungs relatively clear, loud MR murmur, JVD okay, not much edema
Echo: EF 55-60% moderate to severe MR, trace aortic regurgitation, moderate TR, pulmonary artery systolic pressure 66 mmHg dilated right atrium and right ventricle with hypokinesis
ECG: Sinus rhythm, low voltage
Hemoglobin 8.2, MCV is 80.7, BUN/creatinine are 29 and 1.5 proBNP was greater than 27,000 admission, troponin 0.02
Impression:
As below per Shanelle Ortiz. Reviewed in detail and agree, unless otherwise specified.
Plan:
Overall, volume status is reasonable.
She is relatively hypotensive. Weight is down almost 5 kg since admission
Will change to oral furosemide in a.m., outpatient dose was 20 mg twice daily, will start as 40 mg p.o. twice daily
She is now back on Eliquis. She is in sinus rhythm on amiodarone at this time.
Unclear whether she has been considered for mitral valve repair, as discussed watchman in the past unclear of current status regarding mass.
Check proBNP in a.m.
Back on Eliquis, but in sinus rhythm on amiodarone,
Continue SGLT 2 antagonist
Avoid spironolactone at present given CKD.
Addendum entered and electronically signed by Matthias Meléndez MD 11/19/24 16:24:
I saw and examined the patient.
The CERTIFIED RETINAL ANGIOGRAPHER or PA's note was reviewed and I agree with the note.
Comment: General: Well developed, well nourished in NAD.
Neck: Supple, no JVD, HJR, carotids +2 B/L, no bruits bilaterally.
Heart: Non displaced PMI, RRR, no murmurs, No S3, S4, no rubs.
Lungs: Scattered rhonchi at the bases
Extremities: No clubbing, cyanosis or edema bilaterally.
Neuro: Grossly nonfocal, awake, alert and oriented x3.
She feels better but still has some shortness of breath. This may be due to anemia. Consider change to oral Lasix in AM. Hematology evaluation for source of bleeding as GI workup is unremarkable. Eliquis has been resumed. Follow hemoglobin.
Discussed with daughter at bedside.
Original Note:
Today's Communication / Plan
-
hematology consultation pending
per GI ok to resume eliquis, ordered
follow hgb
continue IV lasix
Impression / Plan
-
PCP: Dr. Kwon
Junior Network Administrator: Dr. Meléndez
Impression:
Presented with SOB, weight gain
Acute on chronic HFpEF
Anemia, hgb 7.2
CAD
Circumflex stent 2010
CANE LOADER of the RCA and borderline 50-60% mid LAD stenosis previously treated medically with patent circumflex stent by cath 07/09/22
s/p 3.0 mm [place] FAHAD to mid LAD 11/05/22
Takotsubo CM 07/2023
Recovered ischemic cardiomyopathy with EF 50% by echo 09/2023
Mod to severe MR by echo 09/2023
Paroxysmal AF
Chronic Eliquis OAC
Anemia
Resection of bladder tumor 07/16/22
h/o hematuria 06/2022
h/o lung cancer with bilateral lobectomies - L lobectomy 06/2011, RUL 05/2026
Carotid stenosis
Cochlear implants 2016
h/o GI bleeding 06/2022, 11/2023 (angiodysplastic lesions with stigmata of recent bleeding in duodenum by EGD)
Echo 02/27/21: LV: Normal size and function.� EF 50-55%.� Possible basal inferior HK.� RV: Normal, LA: Severely dilated, RA: Normal, MV: Moderate MR, AV: Sclerotic.� Trace AI.� TV: Mild TR with PAP 25 mmHg
Echo 07/07/22: LV: EF 35%.� Global HK with severe HK to akinesis of the basal and mid inferior and inferolateral segments.� Severe HK of the basal and mid anterior and anteroseptal.� Stage II diastolic dysfunction.� RV: Mildly dilated, LA: Severely
dilated, RA: Mildly dilated, MV: Mild to moderate eccentric MR, AV: Trace AI.� TV: Mild TR with PAP 4310/
GEORGINA 07/10/22: LV: Mildly reduced EF estimated 45-50%.� RV: Dilated, LA: Dilated, RA: Dilated, GEORGI: No thrombus, MV: Prolapse of A3-P3 segments with moderate eccentric MR.� ERO 0.2 cm� and regurgitant volume 32 by PISA method.� AV: Trace AI, TV: Mild
TR with PAP 32 mmHg
Echo 03/20/23: EF 45%, hypokinesis basal to mid anteroseptal, basal to mid inferior and inferolateral black, stage I diastolic dysfunction, mod MR
Echo 07/22/23: Ejection fraction 30 to 35%, global hypokinesis with anteroseptal, basal inferior, and basal septal akinesis., Moderate to severe MR, mild TR PA systolic of 53 mmHg
Echo 09/12/2023: EF visually 50 to 55%, 49% by Goldstein's, stage II diastolic dysfunction, severe LA dilation, moderate to severe eccentric MR, mild AI, moderate TR, PAP 58 mmHg
Echo 06/26/2024: EF 50-55%, stage II diastolic dysfunction, moderate posterior MR, trace AR, mild to moderate TR, estimated PAP 42 mmHg
Echo 11/17/2024: EF 50 to 55%, mild concentric LVH, stage II diastolic dysfunction, mild MAC, moderate posterior eccentric MR, trace AR, mild to moderate TR, PAP 42 mmHg, mildly dilated RA, no significant change compared to prior
Plan:
-presented with SOB and weight gain
-likely multifactorial due to CHF and acute on chronic anemia
-proBNP >60021. continue IV lasix diuresis. Cr stable at 1.5. dry weight previously 120 pounds. was on po lasix 20mg BID prior to admission
-replete K
-hgb up to 8 s/p 1 U PRBCs 11/18. EGD today without clear source of anemia. for hematology evaluation as GI work up has been unrevealing. continue iron supplementation
-eliquis 2.5mg BID remains on hold, but GI note states ok to resume eliquis. d/w hospitalist, will resume eliquis 2.5mg BID tonight
-follow up echo stable with preserved EF and mod MR
-has been in SR. continue toprol, amiodarone.
-Hypotension noted at recent OV 11/12 and lisinopril stopped. BP remains borderline low, but stable. continue toprol
-continue SGLT2 inhibitor
HPI: Kyleihg is a 69 year old female with PMH of CAD, CM, MR, paroxysmal Afib, anemia, lung cancer, carotid stenosis, and prior GIB. Presented to [facility] [place] ER for evaluation of worsening SOB and weight gain. She was seen in the cardiology office on 11/12
and noted weight gain and SOB. She was placed on higher dose lasix 20mg BID. She was also noted to be hypotensive and her lisinopril was stopped to allow for more aggressive diuresis. Despite this, she noted over the weekend she continued to gain
weight and breathing continued to worsen. She notes she has had no shortness of breath at rest and has had no orthopnea/PND. She called the cardiology office this AM to report worsening SOB and weight gain, and she was instructed to come to the ER.
She states leading up to the start of these symptoms, she has had no significant changes to diet, but notes with the heat she may have been drinking more water than normal. In ER, she was noted to have evidence of acute heart failure and was
admitted. Cardiology consulted for evaluation. Notes she feels well currently while sitting on stretcher in ER, after being given a dose of IV lasix.
Progress Note - Junior Network Administrator
Subjective
Date of Service: November 19, 2024
reports breathing improving
Objective
Labs:
11/19/24 06:24
11/19/24 06:24
Labs
Hgb 8.0 g/dL (12.0-16.0) L 11/19/24 06:24
Hct 26.2 % (37.0-47.0) L 11/19/24 06:24
Plt Count 378 10^3/uL (130-400) 11/19/24 06:24
Sodium 133 mmol/L (135-145) L 11/19/24 06:24
Potassium 3.4 mmol/L (3.5-5.1) L 11/19/24 06:24
BUN 28 mg/dl (7-17) H 11/19/24 06:24
Creatinine 1.5 mg/dL (0.6-1.0) H 11/19/24 06:24
Glucose 81 mg/dl (70-99) 11/19/24 06:24
Vital Signs and I&O:
Vital Signs
Temp Pulse Resp BP Pulse Ox
98.0 F 67 16 107/56 94
11/19/24 13:08 11/19/24 13:08 11/19/24 13:08 11/19/24 13:08 11/19/24 13:08
Vital Signs
Temp Pulse Resp BP Pulse Ox
98.0 F 67 16 107/56 94
11/19/24 13:08 11/19/24 13:08 11/19/24 13:08 11/19/24 13:08 11/19/24 13:08
Intake & Output
11/17/24 11/18/24 11/19/24 11/20/24
07:59 07:59 07:59 07:59
Intake Total 240 / 240 720 / 720 970 / 970
Balance 240 / 240 720 / 720 970 / 970
Physical Exam
Physical Exam
GEN: No distress, awake, alert, oriented x3
HEENT: supple, anicteric, mmm, eomi
LUNGS: Few crackles and wheezes B/L
CV: Reg, S1/S2, 2/6 syst LSB
ABD: soft, BS+, NT/ND
EXT: No cyanosis, clubbing, edema
NEURO: Gross non-focal
SKIN: Warm, pink, dry. No rash
[2024-11-19] MEDS: ELIQUIS 2.5 MG PO (19:38)
[2024-11-19] MEDS: TOPROL XL PO (19:39)
[2024-11-19] MEDS: DUONEB 3 ML INH (20:15)
[2024-11-19] MEDS: BENADRYL 25 MG PO (21:02)
[2024-11-19] MEDS: LIPITOR 80 MG PO (21:02)
[2024-11-19] MEDS: MELATONIN 10 MG PO (21:02)
[2024-11-19] MEDS: PROZAC 20 MG PO (21:03)
[2024-11-19] MEDS: TYLENOL 500 MG PO (21:03)
[2024-11-19] MEDS: ZETIA 10 MG PO (21:03)
[2024-11-20] VITALS (7 sets, daily range): BP systolic 93–109; BP diastolic 56–61; BMI 19.7
[2024-11-20 07:18] LABS: Hematocrit 27.1 % (37.0-47.0); Hemoglobin 8.2 g/dL (12.0-16.0); Mean Corp Hgb Conc. 30.3 g/dL (33.0-37.0); Mean Corpuscular Volume 80.7 fL (81.0-99.0); Platelet Count 366 10^3/uL (130-400); Red Cell Dist. Width 24.0 % (11.5-14.5)
[2024-11-20] MEDS: STRIVERDI RESPIMAT 2 PUFF INH (07:32)
[2024-11-20] MEDS: SPIRIVA RESPIMAT 2.5 MCG 2 PUFF INH (07:32)
[2024-11-20 07:46] LABS: Blood Urea Nitrogen 29 mg/dl (7-17); Calcium 8.0 mg/dl (8.4-10.2); Carbon Dioxide 30 mmol/L (22-30); Chloride 101 mmol/L (98-107); Estimated Creatinine Clearance 30 ml/min; Glucose 90 mg/dl (70-99); Magnesium 2.0 mg/dl (1.6-2.3); Potassium 3.7 mmol/L (3.5-5.1); Sodium 135 mmol/L (135-145); eGFR 37.26
[2024-11-20] MEDS: FARXIGA 10 MG PO (08:04)
[2024-11-20] MEDS: PROTONIX 40 MG PO (08:07)
[2024-11-20] MEDS: VITAMIN C 500 MG PO (08:07)
[2024-11-20] MEDS: DETROL LA 4 MG PO (08:07)
[2024-11-20] MEDS: ELIQUIS 2.5 MG PO ×2 (08:07→19:42)
[2024-11-20] MEDS: KLOR-CON 20 MEQ PO ×2 (08:07→19:42)
[2024-11-20] MEDS: PACERONE 200 MG PO (08:07)
[2024-11-20] MEDS: LASIX 40 MG IV ×2 (08:08→15:41)
[2024-11-20] MEDS: B COMPLEX w/VITAMIN C 1 CAPLET PO (08:10)
[2024-11-20] MEDS: TOPROL XL 12.5 MG PO (08:10)
--- NOTE | 2024-11-20 08:16 | CON.ONC ---
Documented by User: BOB Waller 11/20/24 12:24
Consultation
-
Date Consultation Requested: 11/19/24
Date Consultation Performed: 11/20/24
Requesting Provider: Dr. Daisy Nassar
Performing Provider: Dr. Matthias Dodd
Reason for Consultation: anemia, leukocytosis
Impression
Impression
p/w SOB/wt gain.
acute exacerbation HFpEF
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
acute on chronic anemia/JOSSELYN
PAF on DOAC
History�of�bilateral�lung�cancers,�treated�surgically�in�201nd�2015,�followed�by�Dr.�Khloe�Patten�at�[facility]
History�of�bladder�cancer,�with�hematuria�in�2,�followed�by�Dr.�Marino
Plan
Plan
follow EGD biopsy path -appreciate GI input
trend H/H
monitor for bleeding
agree with parenteral iron
transfuse Hgb <8 with sxs anemia
Pt has OP follow up with Dr. Tran 01/05/2025 with repeat labs prior to office visit
Patient History
History of Present Illness
69yo F presented with SOB and weight gain over the past weeks. She reports 7lb weight gain over the past weak with associated lightheadedness and headache. Her SOB worsens with exception and lying down to sleep. She did not have any improvement in
her symptoms with an increase in her Lasix as an outpatient which prompted her to seek further evaluation in the ER. Initial evaluation was notable for WBC 24.5, Hgb 7.2, platelet count 432,000, BUN 28, creatinine 1.5. Her CXR showed subtle hazy
opacity felt to be related to superimposed chest wall soft tissues, possible airspace opacities. No vascular congestion or pleural effusion. She was admitted, transfused with 1U PRBC, started on parenteral iron and IV furosemide. She underwent an
EGD today that showed no AVMs or other source of GI bleeding. She had biopsies taken of irregular z-line to r/o barretts.
In brief, Kyleigh is known to Dr. Tran for management of her Jak2 positive MPN and chronic iron deficient anemia. Her 2023 EGD evaluation was notable for multiple bleeding angiodysplastic lesions in the duodenum. Her JOSSELYN has been managed oral iron
as an outpateint with her most recent outpatient Hgb ~10g/dL in June 2024. Her Jak2 MPN with leukocytosis and thrombocytosis were stable on her June 2024 labs with WBC 24.1 and platelet count 468,000. She is on apixaban for her cardiac
history.
Clincally, she denies fever, chills, cough, chest pain, n/v/d/c or abdominal pain. She denies any overt bleeding.
Past-Medical/Surgical History
PMH Blake 2 MPN, JOSSELYN, Lung CA, hypertension, mitral valve insufficiency, PAF, DAD, HLD, HFpEF, ICM, CKD3,bladder wall cancer, gastric/colon polyps, angiodysplasia of duodenum, Husain's esophagus, GERD, GIB
PSH Cardiac stents, ORIF right leg fracture, right upper lung lobectomy, , cochlear implant, TURBT, cataract surgery
Socail: non smoker, deneis etoh or recreational drugs. retired
Patient Medication
�Medication �Instructions �Recorded �Confirmed �Last Taken �Type
atorvastatin 80 mg tablet (Lipitor) 80 mg PO HS High cholesterol 04/07/22 11/16/24 11/15/24 History
ezetimibe 10 mg tablet (Zetia) 10 mg PO HS High cholesterol 04/07/22 11/16/24 11/15/24 History
fluoxetine 20 mg capsule (Prozac) 20 mg PO HS Mental Health 04/07/22 11/16/24 11/15/24 History
empagliflozin 10 mg tablet 10 mg PO DAILY heart protection 02/18/23 11/16/24 11/16/24 History
(Jardiance)
furosemide 20 mg tablet 20 mg PO BID Fluid 07/22/23 11/16/24 11/16/24 History
Retention/Swelling 40 mg
amiodarone 200 mg tablet 200 mg PO DAILY Arrhythmia 09/21/23 11/16/24 11/16/24 History
vibegron 75 mg tablet (Gemtesa) 75 mg PO DAILY Urinary Issue 04/22/24 11/16/24 11/16/24 History
metoprolol succinate 25 mg 12.5 mg PO BID Heart Failure 06/25/24 11/16/24 11/16/24 History
tablet,extended release 24 hr
(Toprol XL)
therapeutic multivitamin 1 tab PO DAILY Supplement 06/25/24 11/16/24 11/16/24 History
umeclidinium 62.5 mcg-vilanterol 1 inh inhalation R DAILY 06/25/24 11/16/24 11/16/24 History
25 mcg/actuation powdr for Lung/Breathing Issues
inhalation (Anoro Ellipta)
apixaban 2.5 mg tablet (Eliquis) 2.5 mg PO BID Blood Clot 11/16/24 11/16/24 11/16/24 History
Prevention/Tx
diphenhydramine 25 1 tab PO HS Sleep 11/16/24 11/16/24 11/15/24 History
mg-acetaminophen 500 mg tablet
(Acetaminophen PM)
ipratropium 0.5 mg-albuterol 3 mg 3 ml inhalation R HS 11/16/24 11/16/24 11/15/24 History
(2.5 mg base)/3 mL nebulization Lung/Breathing Issues
soln
melatonin 10 mg tablet 10 mg PO HS Sleep 11/16/24 11/16/24 11/15/24 History
pantoprazole 40 mg tablet,delayed 40 mg PO DAILY Gastrointestinal 11/16/24 11/16/24 11/16/24 History
release (Protonix) Issue
vitamin B complex 1 tab PO DAILY Supplement 11/16/24 11/16/24 11/16/24 History
Active Medications
Generic Name Dose Route Start Last Admin
Trade Name Freq PRN Reason Stop Dose Admin
Acetaminophen 500 mg 11/16/24 22:00 11/19/24 21:03
Acetaminophen 500 Mg Tablet PO 12/14/24 21:59 500 mg
HS STEPHANIE Administration
Albuterol/Ipratropium 3 ml 11/16/24 22:00 11/19/24 20:15
Ipratropium 0.5/Albuterol 3 Mg (3 Ml Ampul) INH 3 ml
R HS STEPHANIE Administration
Protocol
Amiodarone HCl 200 mg 11/17/24 08:00 11/19/24 08:00
Amiodarone 200 Mg Tablet PO 12/15/24 07:59 200 mg
DAILY STEPHANIE Administration
Apixaban 2.5 mg 11/19/24 20:00 11/19/24 19:38
Apixaban (Eliquis) 2.5 Mg Tablet PO 12/17/24 19:59 2.5 mg
BID STEPHANIE Administration
Ascorbic Acid 500 mg 11/18/24 13:00 11/19/24 08:04
Ascorbic Acid 500 Mg Tablet PO 12/16/24 12:59 500 mg
DAILY STEPHANIE Administration
Atorvastatin Calcium 80 mg 11/16/24 22:00 11/19/24 21:02
Atorvastatin (Lipitor) 80 Mg Tablet PO 12/14/24 21:59 80 mg
HS STEPHANIE Administration
Dapagliflozin 10 mg 11/17/24 08:00 11/19/24 08:03
Dapagliflozin (Farxiga) 10 Mg Tablet PO 12/15/24 07:59 10 mg
DAILY STEPHANIE Administration
Diphenhydramine HCl 25 mg 11/16/24 22:00 11/19/24 21:02
Diphenhydramine 25 Mg Capsule PO 12/14/24 21:59 25 mg
HS STEPHANIE Administration
Ezetimibe 10 mg 11/16/24 22:00 11/19/24 21:03
Ezetimibe (Zetia) 10 Mg Tablet PO 12/14/24 21:59 10 mg
HS STEPHANIE Administration
Fluoxetine HCl 20 mg 11/16/24 22:00 11/19/24 21:03
Fluoxetine 20 Mg Capsule PO 12/14/24 21:59 20 mg
HS STEPHANIE Administration
Furosemide 40 mg 11/16/24 17:27 11/19/24 17:02
Furosemide 40 Mg (10 Mg/Ml) 4 Ml Vial IV 12/14/24 17:26 40 mg
BID AT 0800,1600 STEPHANIE Administration
Ferric Sodium Gluconate 110 mls @ 110 mls/hr 11/18/24 14:00 11/19/24 13:04
Complex 125 mg/ Sodium IV 11/22/24 14:59 110 mls
Chloride DAILY@1400 STEPHANIE Administration
Melatonin 10 mg 11/16/24 22:00 11/19/24 21:02
Melatonin 5 Mg Tablet PO 12/14/24 21:59 10 mg
HS STEPHANIE Administration
Metoprolol Succinate 12.5 mg 11/16/24 20:00 11/19/24 19:39
Metoprolol 12.5 Mg Extended Release Dose (1/2 Of 25 Mg Xl Tablet) PO 12/14/24 19:59 Not Given
BID STEPHANIE
Vibegron [Gemtesa] 0 mg 11/17/24 08:00
75 Mg Tablet Po PO 12/15/24 07:59
Daily DAILY STEPHANIE
Olodaterol 2 puff 11/17/24 08:00 11/20/24 07:32
Olodaterol (Striverdi Respimat) 2.5 Mcg Inhaler INH 12/15/24 07:59 2 puff
R DAILY STEPHANIE Administration
Protocol
Pantoprazole Sodium 40 mg 11/20/24 08:00
Pantoprazole 40 Mg Delayed Release Tablet PO 12/18/24 07:59
DAILY STEPHANIE
Potassium Chloride 20 meq 11/19/24 12:00 11/19/24 19:41
Potassium Chloride 20 Meq Powder Packet PO 12/17/24 11:59 20 meq
BID STEPHANIE Administration
Sodium Chloride 0 flush 11/16/24 18:00
Sodium Chloride 0.9% (Flush) Syringe IV 12/14/24 17:59
PER PROTOCOL STEPHANIE
Tiotropium [place] 2 puff 11/17/24 08:00 11/20/24 07:32
Tiotropium (Spiriva Respimat) 2.5 Mcg Inhaler INH 12/15/24 07:59 2 puff
R DAILY STEPHANIE Administration
Protocol
Tolterodine Tartrate 4 mg 11/20/24 08:00
Tolterodine 4 Mg Extended Release Capsule PO 12/18/24 07:59
DAILY STEPHANIE
Vitamin B Complex/Vitamin C 1 caplet 11/17/24 08:00 11/19/24 08:03
Vitamin B Complex With Vitamin C Caplet PO 12/15/24 07:59 1 caplet
DAILY STEPHANIE Administration
Review of Systems
-
ROS is notable for HPI, otherwise negative
Physical Exam
-
General: No Apparent Distress
HEENT: Moist Mucous Membranes; Negative Jaundice
Cardiology: Normal Sinus Rhythm
Pulmonary: Clear
GI: Soft
Extremities: Pulses Present
Neurology: Non Focal
Psych: Calm
Labs
Lab Results
WBC 19.0 10^3/uL (4.8-10.8) H 11/20/24 06:47
RBC 3.36 10^6/uL (4.20-5.40) L 11/20/24 06:47
Hgb 8.2 g/dL (12.0-16.0) L 11/20/24 06:47
Hct 27.1 % (37.0-47.0) L 11/20/24 06:47
MCV 80.7 fL (81.0-99.0) L 11/20/24 06:47
MCH 24.4 pg (27.0-31.0) L 11/20/24 06:47
MCHC 30.3 g/dL (33.0-37.0) L 11/20/24 06:47
RDW 24.0 % (11.5-14.5) H 11/20/24 06:47
Plt Count 366 10^3/uL (130-400) 11/20/24 06:47
MPV 11.2 fL (7.4-10.4) H 11/20/24 06:47
Abs Immat Gran (auto) 1.7 10^3/uL (0-0.05) H 11/16/24 11:21
Absolute Neuts (auto) 19.8 10^3/uL (1.4-6.5) H 11/16/24 11:21
Absolute Lymphs (auto) 1.1 10^3/uL (1.2-3.4) L 11/16/24 11:21
Absolute Monos (auto) 1.7 10^3/uL (0.1-0.6) H 11/16/24 11:21
Absolute Eos (auto) 0.1 10^3/uL (0-0.7) 11/16/24 11:21
Absolute Basos (auto) 0.1 10^3/uL (0-0.2) 11/16/24 11:21
Immature Gran % 6.7 % (0-0.5) H 11/16/24 11:21
Neutrophils % 81.0 % (42.2-75.2) H 11/16/24 11:21
Lymphocytes % 4.5 % (20.5-51.1) L 11/16/24 11:21
Monocytes % 7.0 % (1.7-9.3) 11/16/24 11:21
Eosinophils % 0.3 % (0-6) 11/16/24 11:21
Basophils % 0.5 % (0-2) 11/16/24 11:21
Creatinine 1.5 mg/dL (0.6-1.0) H 11/20/24 06:48
Vital Signs
Vital Signs
Temp Pulse Resp BP Pulse Ox
97.9 F 70 16 109/61 99
11/20/24 07:28 11/20/24 07:35 11/20/24 07:35 11/20/24 07:28 11/20/24 07:35

Documented by User: Matthias Dodd MD 11/20/24 12:47
Plan
Plan
follow EGD biopsy path -appreciate GI input
trend H/H
monitor for bleeding
agree with parenteral iron
transfuse Hgb <8 with sxs anemia
Pt has OP follow up with Dr. Tran 01/05/2025 with repeat labs prior to office visit
Hematology Addendum:
Patient seen and evaluated and agree w/ ASSOCIATE PROFESSOR OF FORESTRY note and plan as outline
-hemoglobin improved
-f/u w/Dr. Tran as outpt
--- NOTE | 2024-11-20 10:05 | W.PN.HOSP.TC ---
Today's Communication/Plan
-
iron infusion
diuresis as per cardio
monitor H&H
Assessment / Plan
Assessment / Plan
Physical Exam
General: No acute distress, appears comfortable at this time.
HEENT: NormoCephalic, Moist mucous membranes and Atraumatic
Respiratory: clear to auscultation b/l
Cardiac: S1/S2 and Regular Rhythm; No Murmur or Rub
GI: Soft, Non Tender, Non Distended and Normal Bowel Sounds; No Organomegaly
Musculoskeletal: No Clubbing, No Cyanosis and trace pitting edema lower ext's b/l
Skin: No Rash
Neuro: AO x 3 Conversant Coherent
69F A-fib, bladder cancer, lung cancer, hypertension, hyperlipidemia p/w exertional SOB wt gain for past one week. Patient gained 7 pounds in 1 week. Patient also reported lightheadedness, headache. Her Lasix was increased to 20 twice a day outpt
with no improvement in her symptoms. BNP elevated, patient admitted for further management CHF exacerbation
# Acute exacerbation of heart failure
- BNP 19798
- Diuretics continued
-Jardiance continued
- Strict CLAUDE, daily weight, fluid restriction
- ECHO appreciated EF 50-55% no significant change from prior ECHO September 2023
- Cardiology consult appreciated cont Lasix diuresis transitioned to oral lasix 40 mg BID
- Chest x-ray appreciated pneumonia vs pulm edema (with significant improvement symptoms on diuresis, more likely pulm edema)
#Orthostatic Hypotension
monitor
# Anemia
# Severe iron deficiency anemia
# History of thrombocytosis
- No active bleeding
- 1PRBC transfusion given for Hgb 7.0 11/18
- IV iron infusions
-GI eval appreciated EGD performed 11/19 unremarkable for source of bleeding, ok to resume Eliquis
-Hematology eval appreciated
# Chronic leukocytosis
- Patient is afebrile
- Continue to monitor
# Hyponatremia likely hypervolemic
# CKD stage IIIb
- Fluid restriction
-cont to monitor
#CAD
-Continue Zetia and statin along with beta-blockade
-Eliquis on hold at this time d/t anemia
#Paroxysmal atrial fibrillation in sinus rhythm on amiodarone, b-chau
-Eliquis restarted renally dosed for Cr and age
-monitor
# Anxiety
-Prozac continued
GERD Husain's esophagus
Continue PPIs twice daily
#History of lung CA outpatient follow-up
- Nebs from home continue
- follows w/ [facility]
# DVT prophylaxis
-SCD
# CODE STATUS
- Full code
I spent a total of 45 minutes with the patient or on the floor. More than 50% of this time involved counseling and coordination of care.
Anticipated Discharge: 24 - 48 hours
Subjective/Interval History
-
Date of Service: November 20, 2024
No acute distress, comfortable, reports feeling well. Denies new acute issues at this time.
Objective Data
-
Labs:
Laboratory Results
11/20/24 11/20/24
06:47 06:48
WBC 19.0 H
Hgb 8.2 L
Hct 27.1 L
Plt Count 366
Sodium 135
Potassium 3.7
Chloride 101
Carbon Dioxide 30
BUN 29 H
Creatinine 1.5 H
Glucose 90
Calcium 8.0 L
Vital Signs:
Vital Signs
Temp Pulse Resp BP Pulse Ox
97.9 F 70 16 109/61 99
11/20/24 07:28 11/20/24 07:35 11/20/24 07:35 11/20/24 07:28 11/20/24 07:35
I&O
11/19/24 11/20/24 11/21/24
06:59 06:59 06:59
Intake Total 970 / 970 840 / 840 118 / 118
Balance 970 / 970 840 / 840 118 / 118
--- NOTE | 2024-11-20 15:13 | CM ---
Chart reviewed. Care ongoing at this time
No CM needs at this time
Plan: Home when stable
[2024-11-20] MEDS: FERRLECIT 110 MG IV (15:41)
[2024-11-20] MEDS: DUONEB 3 ML INH (19:26)
[2024-11-20] MEDS: LIPITOR 80 MG PO (19:42)
[2024-11-20] MEDS: ZETIA 10 MG PO (19:43)
[2024-11-20] MEDS: TYLENOL 500 MG PO (21:07)
[2024-11-20] MEDS: BENADRYL 25 MG PO (21:07)
[2024-11-20] MEDS: MELATONIN 10 MG PO (21:07)
[2024-11-20] MEDS: PROZAC 20 MG PO (21:07)
[2024-11-21 03:33] VITALS: BP 112/62
[2024-11-21 06:00] VITALS: BMI 19.7
[2024-11-21 07:00] VITALS: BP 117/67
[2024-11-21] MEDS: PACERONE 200 MG PO (07:37)
[2024-11-21] MEDS: VITAMIN C 500 MG PO (07:37)
[2024-11-21] MEDS: B COMPLEX w/VITAMIN C 1 CAPLET PO (07:37)
[2024-11-21] MEDS: FARXIGA 10 MG PO (07:37)
[2024-11-21] MEDS: LASIX 40 MG PO (07:38)
[2024-11-21] MEDS: ELIQUIS 2.5 MG PO (07:38)
[2024-11-21] MEDS: PROTONIX 40 MG PO (07:38)
[2024-11-21] MEDS: KLOR-CON 20 MEQ PO (07:42)
[2024-11-21] MEDS: DETROL LA 4 MG PO (07:42)
[2024-11-21 07:48] LABS: Hematocrit 26.9 % (37.0-47.0); Hemoglobin 8.2 g/dL (12.0-16.0); Mean Corp Hgb Conc. 30.5 g/dL (33.0-37.0); Mean Corpuscular Volume 80.3 fL (81.0-99.0); Platelet Count 376 10^3/uL (130-400); Red Cell Dist. Width 24.4 % (11.5-14.5)
[2024-11-21] MEDS: SPIRIVA RESPIMAT 2.5 MCG 2 PUFF INH (07:52)
[2024-11-21] MEDS: STRIVERDI RESPIMAT 2 PUFF INH (07:52)
[2024-11-21 08:09] LABS: Blood Urea Nitrogen 28 mg/dl (7-17); Calcium 8.1 mg/dl (8.4-10.2); Carbon Dioxide 25 mmol/L (22-30); Chloride 101 mmol/L (98-107); Estimated Creatinine Clearance 30 ml/min; Glucose 85 mg/dl (70-99); Magnesium 2.1 mg/dl (1.6-2.3); Potassium 3.9 mmol/L (3.5-5.1); Sodium 136 mmol/L (135-145); eGFR 37.26
--- NOTE | 2024-11-21 08:27 | W.PN.HOSP.TC ---
Addendum entered and electronically signed by Daisy Nassar MD 11/21/24 13:33:
11/17/24 ECHO appreciated EF 55-60% Moderate to severe mitral regurgitation (also present September 2023 ECHO)
cont follow up with Cardiology recommended
Addendum entered and electronically signed by Daisy Nassar MD 11/21/24 13:12:
orthostatic hypotension resolved
Original Note:
Today's Communication/Plan
-
discharge
Assessment / Plan
Assessment / Plan
Physical Exam
General: No acute distress, appears comfortable at this time.
HEENT: NormoCephalic, Moist mucous membranes and Atraumatic
Respiratory: clear to auscultation b/l
Cardiac: S1/S2 and Regular Rhythm; No Murmur or Rub
GI: Soft, Non Tender, Non Distended and Normal Bowel Sounds; No Organomegaly
Musculoskeletal: No Clubbing, No Cyanosis and trace pitting edema lower ext's b/l
Skin: No Rash
Neuro: AO x 3 Conversant Coherent
69F A-fib, bladder cancer, lung cancer, hypertension, hyperlipidemia p/w exertional SOB wt gain for past one week. Patient gained 7 pounds in 1 week. Patient also reported lightheadedness, headache. Her Lasix was increased to 20 twice a day outpt
with no improvement in her symptoms. BNP elevated, patient admitted for further management CHF exacerbation
# Acute exacerbation of heart failure
- [place] >40758 [place] [address] w/ treatment
-Jardiance continued
- Strict CLAUDE, daily weight, fluid restriction
- ECHO appreciated EF 50-55% no significant change from prior ECHO September 2023
- Cardiology consult appreciated cont Lasix diuresis transitioned to oral lasix 40 mg BID
- Chest x-ray appreciated pneumonia vs pulm edema (with significant improvement symptoms on diuresis, more likely pulm edema)
#Orthostatic Hypotension
monitor
# Anemia
# Severe iron deficiency anemia
# History of thrombocytosis
- No active bleeding
- 1PRBC transfusion given for Hgb 7.0 11/18
- IV iron infusions x4, daily oral Iron supplementation on discharge
-GI eval appreciated EGD performed 11/19 unremarkable for source of bleeding, ok to resume Eliquis
-Hematology eval appreciated
# Chronic leukocytosis
- Patient is afebrile
- Continue to monitor
# Hyponatremia likely hypervolemic
# CKD stage IIIb
- Fluid restriction
- hyponatremia since resolved
- renal function remains stable
#CAD
-Continue Zetia and statin along with beta-blockade
-Eliquis resumed as above
#Paroxysmal atrial fibrillation in sinus rhythm on amiodarone, b-chau
-Eliquis restarted renally dosed for Cr and age
-monitor
# Anxiety
-Prozac continued
GERD Husain's esophagus
Continue PPIs twice daily
#History of lung CA outpatient follow-up
- Nebs from home continue
- follows w/ [facility]
# DVT prophylaxis
-SCD
# CODE STATUS
- Full code
Medically stable for discharge home with outpatient follow up recommendations.
Total Time Preparing Discharge __40 minutes including examination of the patient, summary of the hospital stay, instructions for continuing care to all relevant caregivers; and preparation of discharge records, prescriptions, and referral
forms if necessary.
Anticipated Discharge: Today
Subjective/Interval History
-
Date of Service: November 21, 2024
Overall reports feeling well. Denies new acute issues at this time. Ambulating without need for assist device. Negative Orthostatic Hypotension.
Objective Data
-
Labs:
Laboratory Results
11/21/24
07:05
WBC 16.4 H
Hgb 8.2 L
Hct 26.9 L
Plt Count 376
Sodium 136
Potassium 3.9
Chloride 101
Carbon Dioxide 25
BUN 28 H
Creatinine 1.5 H
Glucose 85
Calcium 8.1 L
Vital Signs:
Vital Signs
Temp Pulse Resp BP Pulse Ox
97.5 F 64 15 117/62 99
11/21/24 07:00 11/21/24 07:57 11/21/24 07:57 11/21/24 07:37 11/21/24 07:57
I&O
11/20/24 11/21/24 11/22/24
06:59 06:59 06:59
Intake Total 840 / 840 476 / 476
Balance 840 / 840 476 / 476
[2024-11-21 09:40] VITALS: BP 109/60; BP 114/61; BP 119/64; PULSE 74; PULSE 75; PULSE 78
[2024-11-21 11:00] VITALS: BP 100/58
[2024-11-21] MEDS: FERRLECIT 110 MG IV (13:12)
--- NOTE | 2024-11-21 13:57 | W.DCSUMMARY ---
Discharge Summary
Discharge Data
Date of Admission: 11/16/24
Date of Discharge: 11/21/24
-
Pending Results: Yes
Additional Pending Results:
Pathology results to follow up with GI
Discharge Plan
-
Patient Disposition: Home (Routine Discharge)
Discharge Diagnosis/Procedures: Acute on Chronic Heart Failure with Preserved Ejection Fraction
Possible Symptomatic Anemia
Severe Iron Deficiency Anemia
Paroxysmal Atrial Fibrillation
Chronic Leukocytosis
Coronary Artery Disease
Chronic Kidney Disease Stage III
Moderate Severe Mitral Regurgitation
Esophagogastroduodenoscopy performed 11/19/24 no clear GI source of anemia identified
Condition: Fair
Diet: Low Cholesterol
Activity: As tolerated
Driving Restrictions: As prior to admission
Bathing Restrictions: None
Blood Work: Please repeat CBC and BMP with primary care provider in 1 week of discharge.
Others Tests: Repeat Chest X-ray with primary care provider in 1 month of discharge.
Call GI office, in 1 week of discharge, for pathology results of biopsies taken from your recent endoscopy procedure.
Specialty Instructions: Weigh Daily- Call MD for wt gain/loss 3 lbs overnight/5 lbs in 1 week
Activity Restrictions/Additional Instructions:
Follow up with primary care provider in 1 week of discharge and Cardiology in 2 weeks of discharge. Keep your appointment with Hematology/Oncology.
Oral Iron supplement has been prescribed for severe iron deficiency anemia
Lasix has been increased to 40 mg twice a day for better treatment/control heart failure.
Potassium supplementation prescribed to prevent hypokalemia while on diuretics. Hold when off diuretics such as Lasix.
Please take medications as prescribed/recommended and follow up with primary care provider and/or other healthcare provider involved in your care for refills and/or further adjustment to your medication regimen as necessary.
Referrals:
Sara Tran MD [Active, Oncology] - 01/05/25
Matthias Meléndez MD [Active, Cardiology] - in two weeks
Carlita Kwon MD [Family Provider, [facility]] - in one week
Saloni Caballero DO [Active, Gastroenterology]
Prescriptions:
New
potassium chloride 20 mEq Packet
20 meq PO BID Qty: 100 0RF
Rx Instructions:
Hold when off diuretics such as Lasix.
ferrous sulfate [FeroSul] 325 mg (65 mg iron) Tablet
325 mg PO DAILY Qty: 30 0RF
furosemide 40 mg Tablet
40 mg PO BID AT 0800,1600 Qty: 60 0RF
Continued
atorvastatin [Lipitor] 80 mg Tablet
80 mg PO HS
fluoxetine [Prozac] 20 mg Capsule
20 mg PO HS
ezetimibe [Zetia] 10 mg Tablet
10 mg PO HS
Jardiance 10 mg tablet
10 mg PO DAILY
amiodarone 200 mg Tablet
200 mg PO DAILY
Gemtesa 75 mg Tablet
75 mg PO DAILY
therapeutic multivitamin Tablet
1 tab PO DAILY
metoprolol succinate [Toprol XL] 25 mg Tablet Extended Release 24 Hr
12.5 mg PO BID
umeclidinium-vilanterol [Anoro Ellipta] 62.5-25 mcg/actuation Blister With Device
1 inh INHALATION R DAILY
ipratropium-albuterol 0.5 mg-3 mg(2.5 mg base)/3 mL Solution For Nebulization
3 ml INHALATION R HS
pantoprazole [Protonix] 40 mg Tablet,Delayed Release (Dr/Ec)
40 mg PO DAILY
vitamin B complex Tablet
1 tab PO DAILY
diphenhydramine-acetaminophen [Acetaminophen PM] 25-500 mg Tablet
1 tab PO HS
melatonin 10 mg Tablet
10 mg PO HS
Eliquis 2.5 mg tablet
2.5 mg PO BID
Discontinued
furosemide 20 mg tablet
20 mg PO BID
Discharge Orders:
Discharge Patient (As Directed); Ordered 11/21/24
Ordered By: Daisy Nassar
Discharge Date and Time
Print Language: GEORGIAN
[2024-11-21 15:04] VITALS: BP 109/63
--- NOTE | 2024-11-21 15:09 | CM ---
Addendum entered by Olivia Fish 11/21/24 15:10:
IMM verbally reviewed, patient declined need for copy, placed in chart.
Original Note:
CM reviewed chart, patient seen bedside, for discharge today. Patient denies needs upon discharge, reports she will transport self home. CM will continue to follow for all discharge planning needs.
Plan; home no needs.
== END 2024-11-21 15:30 | disposition home or self-care (01) | DRG 291 ==
LOC: 4 WEST ACU 13:52
PROVIDERS: Internal Medicine Cardiovascular Disease; Registered Nurse; ADMITTING PHYSICIAN Internal Medicine; ATTENDING PHYSICIAN Internal Medicine; CONSULT PHYSICIAN Internal Medicine; CONSULT PHYSICIAN Internal Medicine Cardiovascular Disease; EMERGENCY PHYSICIAN Emergency Medicine; FAMILY PHYSICIAN Family Medicine; OTHER PHYSICIAN Internal Medicine Hematology & Oncology
PROC: 30233N1 Transfusion of Nonautologous Red Blood Cells into Peripheral Vein, Percutaneous Approach (ICD-10-PCS; 2024-11-18)
PROC: 0DB18ZX Excision of Upper Esophagus, Via Natural or Artificial Opening Endoscopic, Diagnostic (ICD-10-PCS; 2024-11-19)
DX: I13.0 Hypertensive heart and chronic kidney disease with heart failure and stage 1 through stage 4 chronic kidney disease, or unspecified chronic kidney disease (principal); I50.33 Acute on chronic diastolic (congestive) heart failure; E87.1 Hypo-osmolality and hyponatremia; N17.9 Acute kidney failure, unspecified; E78.00 Pure hypercholesterolemia, unspecified; N18.32 Chronic kidney disease, stage 3b; I48.0 Paroxysmal atrial fibrillation; D75.1 Secondary polycythemia; I25.10 Atherosclerotic heart disease of native coronary artery without angina pectoris; K21.9 Gastro-esophageal reflux disease without esophagitis; D75.839 Thrombocytosis, unspecified; D72.829 Elevated white blood cell count, unspecified; F41.9 Anxiety disorder, unspecified; I34.0 Nonrheumatic mitral (valve) insufficiency; K22.89 Other specified disease of esophagus; I95.1 Orthostatic hypotension; K44.9 Diaphragmatic hernia without obstruction or gangrene; D50.9 Iron deficiency anemia, unspecified; K31.7 Polyp of stomach and duodenum; I25.5 Ischemic cardiomyopathy; K22.70 Barrett's esophagus without dysplasia; Z85.51 Personal history of malignant neoplasm of bladder; Z85.118 Personal history of other malignant neoplasm of bronchus and lung; Z87.891 Personal history of nicotine dependence; Z95.5 Presence of coronary angioplasty implant and graft; Z86.0100 Personal history of colon polyps, unspecified; Z87.19 Personal history of other diseases of the digestive system; Z79.01 Long term (current) use of anticoagulants; Z79.84 Long term (current) use of oral hypoglycemic drugs
CPT/HCPCS: 71046; 80048; 80053; 80061; 82607; 82728; 82746; 83540; 83550; 83735; 83880; 84100; 84443; 84484; 85025; 85027; 85384; 85652; 86140; 86850; 86900; 86901; 86920; 88305; 93005; 93306; 94640; 96374; 97162; 97166; 99285; J2916; P9016

== ENCOUNTER → 2025-02-04 08:05 | Outpatient (REF) | payer OTHER, SELFPAY | LOC: RAD 08:05 | PROVIDERS: ATTENDING PHYSICIAN Physician Assistant; FAMILY PHYSICIAN Family Medicine; OTHER PHYSICIAN Surgery Vascular Surgery | DX: I65.23 Occlusion and stenosis of bilateral carotid arteries (principal); I72.9 Aneurysm of unspecified site | CPT/HCPCS: 93880; 93923; 93930 ==

== ENCOUNTER 2025-03-19 19:37 | Inpatient (IN) | payer OTHER, SELFPAY ==
[2025-03-19 12:05] VITALS: BP 135/90
[2025-03-19 16:12] VITALS: BMI 22.3
[2025-03-19 16:27] VITALS: BP 135/78
[2025-03-19 17:03] LABS: Hematocrit 38.1 % (37.0-47.0); Hemoglobin 11.9 g/dL (12.0-16.0); Mean Corp Hgb Conc. 31.2 g/dL (33.0-37.0); Mean Corpuscular Volume 85.2 fL (81.0-99.0); Platelet Count 407 10^3/uL (130-400); Red Cell Dist. Width 28.1 % (11.5-14.5)
--- NOTE | 2025-03-19 17:07 | ED.GENMED ---
History of Present Illness
General
Chief Complaint: Breathing Problem
Source: patient
Exam Limitations: none
Time Seen by Provider: 03/19/25 16:06
History of Present Illness
History of Present Illness:
70-year-old female presents with shortness of breath and increased leg swelling worsening over the past week. She has a history of CHF. She feels below her heart failure is acting up. She denies chest pain. No fever. She states she is having
trouble sleeping. No vomiting. No other complaints
Past History
Past History
ED Past Medical History: Arrthythmia (A fib), Cancer (Bladder cancer lung cancer), HTN and Hypercholesterolemia
ED Past Surgical History: Appendectomy, Cardiac (Stent), (X 2) and Other (Bilateral upper lung lobectomy)
Social History
Tobacco: Former smoker
Alcohol: None
Drug: Marijuana
Personal:
Living: alone
Employment: Other
Family History
Family History: Other
Phy Exam
Physical Exam
Physical Exam:
General: Well-appearing female in no acute respiratory distress
HEENT: Normal cephalic atraumatic
Heart: Regular rate and rhythm
Lungs: Subtle rales at the bases
Extremities pitting edema bilateral lower extremities
Scores
Heart Failure Risk
Heart Failure Risk Score: Not Applicable
Course
Orders/Labs/Results
Orders:
Orders
03/19/25 11:59
Electrocardiogram (*1) Urgent
Reason for Study: Shortness of Breath
EKG- Treatment ONCE
03/19/25 16:26
Cardiac Monitoring- Treatment ONCE
IV Insert/Care/Rem.- Treatment PRN
CR Chest - 2 Views Urgent
Comment:
Reason For Exam: respiratory distress
O2 Therapy [RESP] Urgent
Titrate/Wean O2 to maintain O2 sat greater than (%): 93
Special Instructions: TO MAINTAIN CONTINUOUS O2 SATS >/= 93%
Pulse Ox/cont/shift [RESP] Urgent
Quantity: 1
Special Instructions: continuous pulse ox
03/19/25 16:34
Complete Blood Count/With Diff Urgent
Comprehensive Metabolic Panel Urgent
NT-proBNP Urgent
Troponin I Urgent
03/19/25 17:41
Furosemide [Lasix] 40 mg IV NOW STA
03/19/25 17:42
Potassium Chloride [KCl] 40 meq PO NOW STA
Potassium Chloride [KCl] 40 meq 0.9% Sodium Chloride 250 ml [Nss] 250 ml IV NOW
Abnormal Lab Results
03/19/25
16:34
WBC 22.3 H 10^3/uL
(4.8-10.8)
Hgb 11.9 L g/dL
(12.0-16.0)
MCH 26.6 L pg
(27.0-31.0)
MCHC 31.2 L g/dL
(33.0-37.0)
RDW 28.1 H %
(11.5-14.5)
Plt Count 407 H 10^3/uL
(130-400)
Potassium 3.4 L mmol/L
(3.5-5.1)
BUN 33 H mg/dl
(7-17)
Creatinine 1.3 H mg/dL
(0.6-1.0)
Calcium 8.0 L mg/dl
(8.4-10.2)
AST 56 H U/L
(14-36)
Alkaline Phosphatase 140 H U/L
(38-126)
Troponin I 0.036 H* ng/ml
Total Protein 6.1 L g/dl
(6.3-8.2)
03/19/25 16:34
03/19/25 16:34
Vital Signs
Initial and Last Documented VS:
Initial Vital Signs
Temp Resp BP Pulse Ox
98.2 F 20 135/90 100
03/19/25 12:05 03/19/25 12:05 03/19/25 12:05 03/19/25 12:05
Last Documented Vital Signs
Temp Resp BP Pulse Ox
98.2 F 20 135/90 100
03/19/25 12:05 03/19/25 12:05 03/19/25 12:05 03/19/25 17:09
MDM/Problems Addressed
Differential Diagnosis Includes:
Patient with shortness of breath leg swelling and a 14 pound weight gain over the past 2 weeks. Suspect CHF exacerbation. Will check chest x-ray to evaluate for any underlying infectious source. Labs pending. Patient is on Lasix 40 mg twice a
day.
*Pulse Oximetry
SaO2: 100
Oxygen Mode of Delivery: Room air
Patient hypoxic: no
*Critical Care Note
Total Time (30-74mins, 75-104mins- exclusive of procedures): Not Applicable
Update Note
Update Note:
BNP over 27,000. Chest x-ray with cardiomegaly. Troponin slightly elevated however patient's troponin is chronically slightly elevated. Patient has no chest pain. Do not suspect ACS. Suspect CHF. Potassium is 3.4. Oral and IV potassium was
ordered as well as 40 mg 6. Will admit to hospital for acute CHF exacerbation
ED Attending Note
-
Portions of this chart may have been created with voice recognition software.� Occasional wrong word or��sound alike� substitutions may have occurred due to the inherent limitations of voice recognition software.
Discharge Plan
Departure
Patient Disposition: Admit
Date of Disposition: 03/19/25
Time of Disposition: 17:49
Presentation/result/management discussed w/ accepting MD/DO: Hospitalist
Discharge Problem:
Acute CHF
Prescriptions:
No Action
atorvastatin [Lipitor] 80 mg Tablet
80 mg PO HS
fluoxetine [Prozac] 20 mg Capsule
20 mg PO HS
ezetimibe [Zetia] 10 mg Tablet
10 mg PO HS
Jardiance 10 mg tablet
10 mg PO DAILY
amiodarone 200 mg Tablet
200 mg PO DAILY
Gemtesa 75 mg Tablet
75 mg PO DAILY
therapeutic multivitamin Tablet
1 tab PO DAILY
metoprolol succinate [Toprol XL] 25 mg Tablet Extended Release 24 Hr
12.5 mg PO BID
umeclidinium-vilanterol [Anoro Ellipta] 62.5-25 mcg/actuation Blister With Device
1 inh INHALATION R DAILY
ipratropium-albuterol 0.5 mg-3 mg(2.5 mg base)/3 mL Solution For Nebulization
3 ml INHALATION R HS
pantoprazole [Protonix] 40 mg Tablet,Delayed Release (Dr/Ec)
40 mg PO DAILY
vitamin B complex Tablet
1 tab PO DAILY
diphenhydramine-acetaminophen [Acetaminophen PM] 25-500 mg Tablet
1 tab PO HS
melatonin 10 mg Tablet
10 mg PO HS
Eliquis 2.5 mg tablet
2.5 mg PO BID
potassium chloride 20 mEq Packet
20 meq PO BID Qty: 100 0RF
Rx Instructions:
Hold when off diuretics such as Lasix.
ferrous sulfate [FeroSul] 325 mg (65 mg iron) Tablet
325 mg PO DAILY Qty: 30 0RF
furosemide 40 mg Tablet
40 mg PO BID AT 0800,1600 Qty: 60 0RF
Referrals:
Carlita Kwon MD [Family Provider, Family Practice]
Interventions
Interventions:
*Risk Screen - Suicide Last Done: 03/19/25 12:08
*General Assessment Last Done: 03/19/25 16:23
*Neglect/Abuse Screening Last Done: 03/19/25 16:23
*ED- Fall Risk Assessment Last Done: 03/19/25 16:23
*ED COVID-19 Vaccine History Last Done: 03/19/25 16:23
*ED Influenza Vaccine History Last Done: 03/19/25 16:23
ED- Cardiac Assessment Last Done: 03/19/25 16:13
ED- Pulmonary Assessment Last Done: 03/19/25 16:13
Discharge Date and Time
Print Language: NAURUAN
[2025-03-19 17:13] LABS: ALT (SGPT) 35 U/L (0-35); AST (SGOT) 56 U/L (14-36); Albumin 3.6 g/dl (3.5-5.0); Alkaline Phosphatase 140 U/L (38-126); Blood Urea Nitrogen 33 mg/dl (7-17); Calcium 8.0 mg/dl (8.4-10.2); Carbon Dioxide 22 mmol/L (22-30); Chloride 103 mmol/L (98-107); Estimated Creatinine Clearance 34 ml/min; Glucose 86 mg/dl (70-99); Potassium 3.4 mmol/L (3.5-5.1); Sodium 135 mmol/L (135-145); Total Protein 6.1 g/dl (6.3-8.2); eGFR 43.96
[2025-03-19 17:30] LABS: Troponin I 0.036 ng/ml
[2025-03-19] MEDS: KCL 40 MEQ PO (17:51)
[2025-03-19] MEDS: LASIX 40 MG IV (17:51)
[2025-03-19 18:00] VITALS: BP 128/91
[2025-03-19 18:00] LABS: Nucleated Red Blood Cells % 1.1 %
--- NOTE | 2025-03-19 18:21 | HPS.HSE ---
Family Physician
-
Family Physician: Carlita Kwon
Chief Complaint
-
wt gain, leg edeme cp 2 days ago
History of Present Illness
70-year-old female from home who states she has a dry weight of 120 pounds however over the past 6 days she has gained 8 pounds and over the past 2 weeks she has gained 14 pounds despite Lasix 40 mg twice daily. She complains of +2 bilateral lower
leg edema. She also complains of having episode of chest pain 2 days ago on 03/17/2025 that resolved. Her troponin is slightly elevated with new EKG changes. She has history of CAD with stent x 2 last stent being approximately 2023 by
[facility] cardiology. She denies headache, fever, chills, sore throat, chest pain, cough, abdominal pain, nausea, vomiting, diarrhea, urinary symptoms. She has past medical history of intubation secondary to CHF and pneumonia chronic diastolic heart
failure, stage II diastolic dysfunction, moderate to severe MR/TR, PASP 66 mmHg, dilated right atrium with reduced right ventricular systolic function, chronic leukocytosis, chronic thrombocytosis, polycythemia, iron deficiency anemia, hypertension,
paroxysmal A-fib, CAD status post cardiac stents x 2, HLD, CKD 3B, lung CA status post right upper lung lobeectomy, former smoker 2 pack a day 30-year quit 25 years ago, bladder wall CA status post TURBT, GERD, Husain's esophagus, GI bleed,
angiodysplasia of duodenum, gastric polyps, colonic polyps, anxiety, ASA'CARSARMIUT with cochlear implants
de
Medical History
Past Medical History
Past Medical History: Reports Other
Additional Past Medical History:
Lung Ca status post right upper lung lobectomy
Bladder wall CA status post TURBT
Hypertension
Mitral valve insufficiency
Paroxysmal A-fib
CAD status post cardiac stents
HLD
Chronic diastolic heart failure
Ischemic cardiomyopathy
CKD 3B
Chronic leukocytosis chronic thrombocytosis
Polycythemia
iron deficiency anemia
GERD
Husain's esophagus
Gastric polyps
GI bleed
Angiodysplasia of duodenum
Colon polyp
Anxiety
ASA'CARSARMIUT with cochlear implant
Past Surgical History: Reports Other
Additional Past Surgical History:
Cardiac stents x 2 last June 2022
ORIF right leg fracture
right upper lung lobectomy
cochlear implant
TURBT
cataract surgery,
Social History
Tobacco: Former Smoker (2 pack a day for 30 years quit 25 years ago)
Alcohol: Former (Quit alcohol 20 years ago)
Drug: None
Employment: Retired
Family History
Family History: Not pertinent
Allergies / Home Medications
Allergies reflects when Allergies were last updated in [facility].
Home Medications with original date entered in [facility]
Allergy/Medication List:
Allergies
Allergy/AdvReac Type Severity Reaction Status Date / Time
pollen extracts Allergy runny Verified 11/16/24 10:14
nose,itchy
eyes
Home Medications
atorvastatin 80 mg tablet (Lipitor) 80 mg PO HS High cholesterol 04/07/22
ezetimibe 10 mg tablet (Zetia) 10 mg PO HS High cholesterol 04/07/22
fluoxetine 20 mg capsule (Prozac) 20 mg PO HS Mental Health 04/07/22
empagliflozin 10 mg tablet (Jardiance) 10 mg PO DAILY heart protection 02/18/23
amiodarone 200 mg tablet 200 mg PO DAILY Arrhythmia 09/21/23
vibegron 75 mg tablet (Gemtesa) 75 mg PO DAILY Urinary Issue 04/22/24
metoprolol succinate 25 mg tablet,extended release 24 hr (Toprol XL) 12.5 mg PO BID Heart Failure 06/25/24
therapeutic multivitamin 1 tab PO DAILY Supplement 06/25/24
umeclidinium 62.5 mcg-vilanterol 25 mcg/actuation powdr for inhalation (Anoro Ellipta) 1 inh inhalation R DAILY Lung/Breathing Issues 06/25/24
apixaban 2.5 mg tablet (Eliquis) 2.5 mg PO BID Blood Clot Prevention/Tx 11/16/24
diphenhydramine 25 mg-acetaminophen 500 mg tablet (Acetaminophen PM) 1 tab PO HS Sleep 11/16/24
ipratropium 0.5 mg-albuterol 3 mg (2.5 mg base)/3 mL nebulization soln 3 ml inhalation R HS Lung/Breathing Issues 11/16/24
melatonin 10 mg tablet 10 mg PO HS Sleep 11/16/24
pantoprazole 40 mg tablet,delayed release (Protonix) 40 mg PO DAILY Gastrointestinal Issue 11/16/24
vitamin B complex 1 tab PO DAILY Supplement 11/16/24
ferrous sulfate 325 mg (65 mg iron) tablet (FeroSul) 325 mg PO DAILY #30 tabs 11/21/24
furosemide 40 mg tablet 40 mg PO BID AT 0800,1600 #60 tabs 11/21/24
acetaminophen 325 mg tablet (Tylenol) 975 mg PO BIDPRN PRN mild pain 03/19/25
Review of Systems
-
History Source: Patient
A 12 point ROS was completed and negative except as noted: Yes
Constitutional: Reports Weight Gain (8 pounds past 6 days); Denies Fatigue
EENT: Denies Sore Throat or Runny Nose
Respiratory: Denies Cough or Trouble Breathing
Cardiac: Reports Chest Pain (2 days ago); Denies Diaphoresis, Palpitations or Syncope
Abdomen/GI: Denies Abdominal Pain, Nausea, Vomiting or Constipated
: Denies Dysuria, Frequency, Flank Pain, Incontinence or Difficulty Voiding
Musculoskeletal: Reports Edema (+2 bilateral leg edema); Denies Joint Pain
Skin: Denies Itching or Rash
Neurological: Denies Dizzy, Headache or Weakness
Endocrine: Reports No Symptoms
Hematologic/Lymphatic: Reports No Symptoms
Psych: Reports Calm
Physical Exam
Vital Signs
Vital Signs
Temp Pulse Resp BP Pulse Ox
98.2 F 74 20 135/78 100
03/19/25 12:05 03/19/25 17:51 03/19/25 12:05 03/19/25 17:51 03/19/25 17:09
Physical Exam
General: Comfortable and Conversant
HEENT: NormoCephalic, Anicteric, Moist mucous membranes, PERRLA, [place] Conjunctivae, No Ptosis and Hearing Impaired (Has cochlear implant)
Respiratory: Rales (Right lower lung base); No Wheezes or Rhonchi
Cardiac: S1/S2, Regular Rhythm, Murmur (Diastolic 2/6) and Peripheral Edema (+2 bilateral lower legs); No Rub or Gallop
Breast: Deferred by me
GI: Soft, Non Tender, Non Distended, Normal Bowel Sounds and No Hepatosplenomegaly
Rectal: Deferred by Provider
Genito-urinary: Deferred by me
Musculoskeletal: No Clubbing, No Cyanosis, Edema, Left Lower Extremity (+2 pitting) and Edema, Right Lower Extremity (+2); No Edema, Left Upper Extremity or Edema, Right Upper Extremity
Skin: Warm and Dry; No Rash
Neuro: AO x 3, No Motor Deficits, Nonfocal/grossly intact, Cranial Nerves Intact and No Sensory Deficits; No DTR's Intact & Symmetrical, Slurred Speech, Facial Droop, Tremors or Sedated
Psych: Calm
Laboratory Results
-
03/19/25 16:34
03/19/25 16:34
Laboratory Results
Total Bilirubin 1.0 mg/dl (0.2-1.3) 03/19/25 16:34
AST 56 U/L (14-36) H 03/19/25 16:34
ALT 35 U/L (0-35) 03/19/25 16:34
Alkaline Phosphatase 140 U/L (38-126) H 03/19/25 16:34
Troponin I 0.036 ng/ml H* 03/19/25 16:34
Impression/Plan
-
Impression/plan:
Admit to telemetry
#Acute on chronic diastolic CHF
Prior history ischemic cardiomyopathy resolved
Last intubation in June 2024 for heart failure
BNP> 27,000 patient reports dry weight 120 pounds currently 129 LBS(states gained 8 pounds in the past 6 days)
I/O, daily weight
- IV Lasix 40 mg given in ER
-continue IV Lasix 40 mg twice daily
-Continue Jardiance
- Consult cardiology�DCA
2D echo 11/17/2024: EF 55 to 60%, normal LVS LVSF no wall abnormalities,
Stage II diastolic dysfunction
Moderate to severe mitral regurg
Trace aortic regurg
Moderate tricuspid regurg PASP 66 mmHg
Dilated right atrium enlarged right ventricular size with reduced right ventricular systolic function
Since echo 06/26/2024 RIGHT heart appears dilated Hypokinetic and PA systolic pressure increased from 42 mmHg to 66 mmHg
# Pulmonary HTN
PASP 66 mmHg
Dilated right atrium enlarged right ventricular size with reduced right ventricular systolic function
Since echo 06/26/2024 RIGHT heart appears dilated Hypokinetic and PA systolic pressure increased from 42 mmHg to 66 mmHg
#Acute hypokalemia due to diuretics
K3.4
Will give KCl 40 mEq p.o.
Follow BMP
#Valvular heart disease moderate to severe MR, moderate TR
#Acute on chronic leukocytosis
#Chronic thrombocytosis
#Polycythemia
#Iron deficiency anemia
WBC 22.3 baseline appears 19-24.5, RBC 4.47, Hgb 11.9, MCV 85.2
- Follow CBC
#Troponin elevation concern for recent ischemic injury/NSTEMI given chest pain 2 days ago with new EKG changes
#CAD status post cardiac stents
-Continue Zetia, Lipitor 80 mg, Toprol XL 12.5 mg twice daily
-Troponin 0.036, will trend 0.039 Dr. Norton aware
Okay to restart Eliquis
CArds Arnold aware
EKG sinus rhythm with first-degree AV block HR 75 bpm, QTcB 547 MS, T wave inversion lateral leads age undetermined
Cardiac cath June 2022 1. Left heart catheterization, coronary angiogram.
2. Ultrasound-guided access.
3. Successful PCI of a 70% previously IFR positive (0.88) mid LAD stenosis with one 3.0 x 18 mm
Medtronic Ino frontier drug-eluting stent, postdilated using IVUS guidance with a 3.25 x 15 mm NC balloon at 18 ness with
excellent angiographic and IVUS guided result.
4. IVUS
#Prolonged QTc
QTc 547 MS prior 476 MS November 16, 2024
Hold prolonged QTc agents
- will hold amiodarone
#Hypertension�benign
Continue Toprol XL 12.5 mg twice daily
#Paroxysmal A-fib
HOLD amiodarone
-cont toprol xl
-cont Eliquis
#HLD
Check lipid profile
-Continue Zetia and Lipitor
#CKD 3B
Creat 1.3 baseline appears 1.5
#Lung Ca status post right upper lung lobectomy
#Bladder wall CA status post TURBT
#Urinary incontinence
Continue Gemtesa 75 mg daily
# GERD
#Husain's esophagus
#Gastric polyps/colonic polyps
#GI bleed
#Angiodysplasia of duodenum
#Anxiety
- Continue Prozac
#ASA'CARSARMIUT with cochlear
#Insomnia
Continue melatonin 10 mg at bedtime
DVT prophylaxis
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
Full code
--- NOTE | 2025-03-19 18:29 | W.PN.UPDATE ---
Addendum entered and electronically signed by Dana Qureshi MD 03/19/25 20:54:
Troponin with minimal elevation, will continue home Eliquis.
Addendum entered and electronically signed by Dana Qureshi MD 03/19/25 20:29:
Jak2 MPN w chronic leukocytosis and thrombocytosis
-seen by Hematology last admission
-monitor leukocytosis
Addendum entered and electronically signed by Dana Qureshi MD 03/19/25 19:42:
CKD III
-creatinine baseline
-monitor with diuresis
Original Note:
Update Note
Progress Note Update
This is an addendum to H&P written by TECHNICAL ACCOUNT REPRESENTATIVE Maria De Jesus Acharya
I saw and examined the patient.
The TECHNICAL ACCOUNT REPRESENTATIVE's note was reviewed and I agree with the note.
Comment:
Ms. Kyleigh Gonsalez is a 70 yo woman with hx CAD (s/p PCI 2010, 11/05/22), recovered ischemic cardiomyopathy with EF 50% (10/03), moderate-severe MR, paroxysmal atrial fibrillation on Eliquis, hx lung cancer with bilateral lobectomies, GERD,
Husain's esophagus presents to the ER with weight gain and increasing lower extremity swelling. She reports chest discomfort 2 days ago when resting, currently chest pain free.
Triage VS: T 98.2, RR 20, BP 135/90, SpO2 100%
On exam patient is awake, in no distress; CV: S1, S2, RRR; chest clear, b/l LE swelling
EKG NSR @ 75, 1st degree AV block, intra-ventricular conduction block, new q waves lateral leads
LABS: WBC 22.3, Hg 11.9, PLT 407, Na 135, K+ 3.4, BUN 33, Cr 1.3, Glucose 86, T. Bili 1.0, AST 56, ALT 35, Alk Phos 140, Trop 0.036, BNP 27,000
MAR: Potassium, Lasix
Heart Failure preserved EF Acute Exacerbation
Troponin elevation, likely non-ischemic 2/2 above
-admit to telemetry
-continue IV Lasix 40mg BID
-strict I/O, daily weights
-trend Troponin; -replace Eliquis with IV Heparin gtt if Troponin rises
-FURNACE TAPPER Jardiance
-Cardiology consult
Coronary Artery Disease s/p multiple PCI most recently 11/05/22
-FURNACE TAPPER Eliquis, Statin, Metoprolol
-replace Eliquis with IV Heparin gtt if Troponin rises
Prolonged QTc
-hold FURNACE TAPPER Amiodarone
Paroxysmal Atrial Fibrillation
-hold amiodarone as above
-FURNACE TAPPER Eliquis
-FURNACE TAPPER Metoprolol
Hyperlipidemia - FURNACE TAPPER Statin
Depression/Anxiety - FURNACE TAPPER Prozac
DVT PPx Eliquis
FULL CODE
76 minutes spent on patient care
[2025-03-19] MEDS: KCL 270 MEQ IV (19:02)
[2025-03-19 20:44] LABS: Troponin I 0.039 ng/ml
--- NOTE | 2025-03-19 20:56 | PTCARENOTE ---
Pt received from ED to [id number]. Pt oriented to room and call mcclure.
[2025-03-19 21:00] VITALS: BP 141/85
[2025-03-19 21:16] VITALS: BMI 21.6
[2025-03-19 21:30] VITALS: BMI 21.6
[2025-03-19] MEDS: DUONEB 3 ML INH (21:34)
[2025-03-19] MEDS: TOPROL XL 12.5 MG PO (21:44)
[2025-03-19] MEDS: PROZAC 20 MG PO (21:45)
[2025-03-19] MEDS: LIPITOR 80 MG PO (21:45)
[2025-03-19] MEDS: ZETIA 10 MG PO (21:45)
[2025-03-19] MEDS: BENADRYL 25 MG PO (21:45)
[2025-03-19] MEDS: TYLENOL 500 MG PO (21:45)
[2025-03-19] MEDS: MELATONIN 10 MG PO (21:45)
[2025-03-19] MEDS: ELIQUIS 2.5 MG PO (21:47)
[2025-03-19 23:00] VITALS: BP 138/80
[2025-03-20 03:00] VITALS: BP 141/77
[2025-03-20 03:13] LABS: Troponin I 0.037 ng/ml
[2025-03-20 03:54] VITALS: BMI 21.6
--- NOTE | 2025-03-20 06:53 | CON.CAR ---
Consultation
Consultation Request
Date/Time Consultation Requested: 03/19/2025, 193
Date/Time Consultation Performed: 03/20/2025, 06
Requesting Provider: Titus
Performing Provider: Gurmeet
Reason for Consultation: HF, SOB
Medical History
-
Chief Complaint: SOB
History of Present Illness:
Patient very pleasant 70-year-old female with a past medical history significant for heart failure with reduced ejection fraction with recovered EF, ischemic cardiomyopathy, mitral valve regurgitation, CAD with prior PCI 2022, symptomatic paroxysmal
atrial fibrillation, hypertension, hyperlipidemia, iron deficiency anemia, chronic leukocytosis, lung cancer with prior upper lobe left resection, hearing loss with bilateral cochlear implants, rate related left bundle branch block who presents due
to worsening shortness of breath and weight gain. Patient states that 1 week ago she weighed 114 pounds and yesterday prior to admission she weighed 128 pounds. Patient reports she has been experiencing worsening shortness of breath with activity
and exertion over the past several weeks. She reports increasing weight, lower extremity swelling, worsening PND and orthopnea. Additionally, she has reported intermittent episodes of chest discomfort. She reports it is an aching sensation in the
center of her chest. She states that there is no aggravating or alleviating factors associated with this chest pain she notes that it typically occurs at rest with radiation to her stomach. She states she does not experience it with activity. She
denies any fever, chills, cough, congestion, palpitations, lightheadedness, dizziness, near-syncope syncope or weakness. Patient's reported adherence to all medications. Patient is a positive family history of heart disease. Patient is a former
smoker, no alcohol, no illicits. Patient states that she has been incredibly adherent to a fluid restricted sodium restricted diet and is frustrated due to the recurrence of volume overload and heart failure symptoms.
Past Medical History
Past Medical History: Other (See HPI)
Past Surgical History: Other (Angioplasty/stents, upper lobe resection x2, cochlear implants, cataract surgery, orthopedic surgery)
Social History
Tobacco: Former Smoker
Alcohol: None
Drug: None
Employment: Retired
Family History
Family History: CAD
Allergies / Home Medications
Allergy/AdvReac Type Severity Reaction Status Date / Time
pollen extracts Allergy runny Verified 11/16/24 10:14
nose,itchy
eyes
�Medication �Instructions �Recorded �Confirmed �Type
atorvastatin 80 mg tablet (Lipitor) 80 mg PO HS High cholesterol 04/07/22 03/19/25 History
ezetimibe 10 mg tablet (Zetia) 10 mg PO HS High cholesterol 04/07/22 03/19/25 History
fluoxetine 20 mg capsule (Prozac) 20 mg PO HS Mental Health 04/07/22 03/19/25 History
empagliflozin 10 mg tablet 10 mg PO DAILY heart protection 02/18/23 03/19/25 History
(Jardiance)
amiodarone 200 mg tablet 200 mg PO DAILY Arrhythmia 09/21/23 03/19/25 History
vibegron 75 mg tablet (Gemtesa) 75 mg PO DAILY Urinary Issue 04/22/24 03/19/25 History
metoprolol succinate 25 mg 12.5 mg PO BID Heart Failure 06/25/24 03/19/25 History
tablet,extended release 24 hr
(Toprol XL)
therapeutic multivitamin 1 tab PO DAILY Supplement 06/25/24 03/19/25 History
umeclidinium 62.5 mcg-vilanterol 1 inh inhalation R DAILY 06/25/24 03/19/25 History
25 mcg/actuation powdr for Lung/Breathing Issues
inhalation (Anoro Ellipta)
apixaban 2.5 mg tablet (Eliquis) 2.5 mg PO BID Blood Clot 11/16/24 03/19/25 History
Prevention/Tx
diphenhydramine 25 1 tab PO HS Sleep 11/16/24 03/19/25 History
mg-acetaminophen 500 mg tablet
(Acetaminophen PM)
ipratropium 0.5 mg-albuterol 3 mg 3 ml inhalation R HS 11/16/24 03/19/25 History
(2.5 mg base)/3 mL nebulization Lung/Breathing Issues
soln
melatonin 10 mg tablet 10 mg PO HS Sleep 11/16/24 03/19/25 History
pantoprazole 40 mg tablet,delayed 40 mg PO DAILY Gastrointestinal 11/16/24 03/19/25 History
release (Protonix) Issue
vitamin B complex 1 tab PO DAILY Supplement 11/16/24 03/19/25 History
ferrous sulfate 325 mg (65 mg 325 mg PO DAILY #30 tabs 11/21/24 03/19/25 Rx
iron) tablet (FeroSul)
furosemide 40 mg tablet 40 mg PO BID AT 0800,1600 #60 tabs 11/21/24 03/19/25 Rx
acetaminophen 325 mg tablet 975 mg PO Q6H PRN pain 03/19/25 03/19/25 History
(Tylenol)
Review of Systems
-
History Source: Patient
All other systems: Negative unless noted
Constitutional: Weight Gain and Fatigue
EENT: No Symptoms
Respiratory: Trouble Breathing
Cardiac: Chest Pain (Dull, radiation to stomach, no aggravating or alleviating factors, not associated with activity)
Abdomen/GI: No Symptoms
: No Symptoms
Musculoskeletal: Edema
Skin: No Symptoms
Neurological: No Symptoms
Endocrine: No Symptoms
Hematologic/Lymphatic: No Symptoms
Physical Exam
Vital Signs
Temp Pulse Resp BP Pulse Ox
97.9 F 70 18 141/77 96
03/20/25 03:00 03/20/25 03:00 03/20/25 03:00 03/20/25 03:00 03/20/25 03:00
Lab Results
Troponin I 0.037 ng/ml H* 03/20/25 02:24
Rcg-N-Dkprqdftsli Pept > 56698 pg/ml 03/19/25 16:34
Physical exam:
GENERAL: no acute distress
EYE: sclera anicteric
NECK: Supple, positive JVD, no carotid bruit appreciated
ENT: normal nose, moist mucosal membranes
CARDIAC: Regular rate and rhythm, +S1/S2, 3/6 harsh apical holosystolic murmur; no rubs, or gallops
CHEST/PULMONARY: Normal effort, bibasilar crackles decreased breath sounds upper lung dilsa
ABDOMEN: Soft, without focal tenderness or distention
NEUROLOGICAL: Alert and oriented x3
SKIN: Warm and dry, no rash; trace bilateral lower extremity edema
PSYCH: Normal and appropriate interaction.
Telemetry shows sinus rhythm
Impression / Plan
-
PCP: Dr. Carlita Kwon
Poultry Boner: Dr. Matthias Meléndez
Impression:
Acute on chronic heart failure with preserved ejection
�Presented with shortness of breath, weight gain greater than 14 pounds
� BNP greater than 27,000
� Troponin 0.036�0.039�0.037; likely nonischemic myocardial injury in the setting of acute on chronic heart failure
� Evidence of volume overload on exam including edema, JVD
� Goal-directed medical therapy with Jardiance 10 mg daily, metoprolol succinate 12.5 mg twice daily; on Lasix 40 mg twice daily
Nonischemic myocardial injury, likely related to above
Coronary artery disease
�LCx stenting 2010
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
� Status post 3.0 mm [place] FAHAD to mid LAD 11/05/2022
� Not on aspirin due to recurrent GI bleed; remains on Eliquis for AF
� On atorvastatin 80 mg daily, Zetia 10 mg daily; metoprolol as above
Stress-induced cardiomyopathy with recovered EF
Ischemic cardiomyopathy with recovered EF
Mitral regurgitation, moderate to severe
Paroxysmal atrial fibrillation, symptomatic
� [id number]: 5 (heart failure, hypertension, age, vascular disease, gender). Eliquis 2.5 mg twice daily for stroke risk reduction; reduced dosing as outpatient due to renal function and weight
� Rate controlled with metoprolol succinate to 12.5 mg twice daily
� Rhythm controlled amiodarone 200 mg daily
Rate related left bundle branch block
Anemia
Chronic leukocytosis, followed by hematology
Resection of bladder tumor, 2022
Bilateral lobectomies
- L lobectomy 06/2011, RUL 05/2026
Carotid stenosis
Bilateral cochlear implants, 2016
History of recurrent GI bleed
- 06/2022, 11/2023 (angiodysplastic lesions with stigmata of recent bleeding in duodenum by EGD)
Hypertension
Hyperlipidemia
Echo 02/27/21: LV: Normal size and function.� EF 50-55%.� Possible basal inferior HK.� RV: Normal, LA: Severely dilated, RA: Normal, MV: Moderate MR, AV: Sclerotic.� Trace AI.� TV: Mild TR with PAP 25 mmHg
Echo 07/07/22: LV: EF 35%.� Global HK with severe HK to akinesis of the basal and mid inferior and inferolateral segments.� Severe HK of the basal and mid anterior and anteroseptal.� Stage II diastolic dysfunction.� RV: Mildly dilated, LA: Severely
dilated, RA: Mildly dilated, MV: Mild to moderate eccentric MR, AV: Trace AI.� TV: Mild TR with PAP 4310/
GEORGINA 07/10/22: LV: Mildly reduced EF estimated 45-50%.� RV: Dilated, LA: Dilated, RA: Dilated, GEORGI: No thrombus, MV: Prolapse of A3-P3 segments with moderate eccentric MR.� ERO 0.2 cm� and regurgitant volume 32 by PISA method.� AV: Trace AI, TV: Mild
TR with PAP 32 mmHg
Echo 03/20/23: EF 45%, hypokinesis basal to mid anteroseptal, basal to mid inferior and inferolateral black, stage I diastolic dysfunction, mod MR
Echo 07/22/23: Ejection fraction 30 to 35%, global hypokinesis with anteroseptal, basal inferior, and basal septal akinesis., Moderate to severe MR, mild TR PA systolic of 53 mmHg
Echo 09/12/2023: EF visually 50 to 55%, 49% by Goldstein's, stage II diastolic dysfunction, severe LA dilation, moderate to severe eccentric MR, mild AI, moderate TR, PAP 58 mmHg
Echo 06/26/2024: EF 50-55%, stage II diastolic dysfunction, moderate posterior MR, trace AR, mild to moderate TR, estimated PAP 42 mmHg
Echo 11/17/2024: EF 50 to 55%, mild concentric LVH, stage II diastolic dysfunction, mild MAC, moderate posterior eccentric MR, trace AR, mild to moderate TR, PAP 42 mmHg, mildly dilated RA, no significant change compared to prior
Recommendations:
� Repeat 2D echocardiogram to assess cardiac size, shape, function, and valvular anatomy in the setting of acute on chronic heart failure with preserved ejection fraction. Plan to reassess LVEF and degree of valvular disease
� Lasix 40 mg IV twice daily with strict intake and output, daily weights; monitor renal function closely
� Okay to resume amiodarone 200 mg daily with daily EKGs; replete electrolytes goal potassium greater than 4, magnesium greater than 2
� Continue home goal-directed medical therapy for AF, heart failure
d/w hospitalist
Data Reviewed
-
EKG: Tracing Personally Visualized and interpreted
Radiology: Image Personally Visualized and interpreted and Report Reviewed by me
Medical Tests (Nuc Med, Echo etc): Report Reviewed by me
Labs: Labs Reviewed by me
Old Records: Reviewed
[2025-03-20 07:00] VITALS: BP 140/92
[2025-03-20] MEDS: SPIRIVA RESPIMAT 2.5 MCG 2 PUFF INH (07:18)
[2025-03-20] MEDS: STRIVERDI RESPIMAT 2 PUFF INH (07:18)
[2025-03-20] MEDS: B COMPLEX w/VITAMIN C 1 CAPLET PO (08:24)
[2025-03-20] MEDS: FARXIGA 10 MG PO (08:24)
[2025-03-20] MEDS: PROTONIX 40 MG PO (08:24)
[2025-03-20] MEDS: PACERONE 200 MG PO (08:25)
[2025-03-20] MEDS: FEOSOL 325 MG PO (08:25)
[2025-03-20] MEDS: THERAGRAN 1 TABLET PO (08:25)
[2025-03-20] MEDS: ELIQUIS 2.5 MG PO ×2 (08:25→19:31)
[2025-03-20] MEDS: LASIX 40 MG IV ×2 (08:26→15:35)
[2025-03-20] MEDS: TOPROL XL 12.5 MG PO ×2 (08:28→19:31)
[2025-03-20 09:34] LABS: Hematocrit 40.0 % (37.0-47.0); Hemoglobin 12.3 g/dL (12.0-16.0); Mean Corp Hgb Conc. 30.8 g/dL (33.0-37.0); Mean Corpuscular Volume 87.3 fL (81.0-99.0); Nucleated Red Blood Cells % 1.0 %; Platelet Count 391 10^3/uL (130-400); Red Cell Dist. Width 28.0 % (11.5-14.5)
[2025-03-20 10:06] LABS: ALT (SGPT) 42 U/L (0-35); AST (SGOT) 67 U/L (14-36); Albumin 3.8 g/dl (3.5-5.0); Alkaline Phosphatase 140 U/L (38-126); Blood Urea Nitrogen 30 mg/dl (7-17); Calcium 8.8 mg/dl (8.4-10.2); Carbon Dioxide 27 mmol/L (22-30); Chloride 99 mmol/L (98-107); Estimated Creatinine Clearance 32 ml/min; Glucose 131 mg/dl (70-99); HDL Cholesterol 23 mg/dl; LDL Cholesterol, Calculated 21 mg/dl; Potassium 4.2 mmol/L (3.5-5.1); Sodium 134 mmol/L (135-145); Total Protein 6.3 g/dl (6.3-8.2); Very Low Density Lipoprotein 30 mg/dl (0-30); eGFR 40.22
--- NOTE | 2025-03-20 10:40 | PTCARENOTE ---
Pt had told Dr Arias that she could't feel her right foot. RN was asked to check pulses. RN was able to both palpate Right pedal pulse and obtain it with the doppler. Pt told RN she could feel her foot being touched but her big toe was tingling.
she says it usually goes away once she gets up in the morning
[2025-03-20 10:49] VITALS: BP 129/77; PULSE 63; O2SAT 98
[2025-03-20] MEDS: TYLENOL 975 MG PO (11:16)
[2025-03-20 11:21] LABS: Anisocytosis 2+; Hypochromasia 1+; Normal RBC Morphology No; Ovalocytes 2+; Polychromasia 1+; Stomatocytes 1+
[2025-03-20 11:22] LABS: Macrocytosis 1+
--- NOTE | 2025-03-20 13:29 | CM ---
I.A: Completed By LYNN Gomez.
Patient lives with her stepdaughter Christiano, [address], first floor BR/BA. Independent in ADLs, personal care and ambulation at baseline, has walker and cane, uses both as needed. Has history of VN in past, has been to [facility] in past.
PCP: Carlita Kwon
Pharmacy: [facility]
PLAN: Anticipate home, possible no needs.
--- NOTE | 2025-03-20 13:59 | W.PN.HOSP.TC ---
Today's Communication/Plan
-
Cont IV diuresis
ECHO
monitor Electrolytes
resume amiodarone
Assessment / Plan
Assessment / Plan
Physical Exam
General: Comfortable and Conversant
HEENT: NormoCephalic, Anicteric, Moist mucous membranes, PERRLA, [place] Conjunctivae, No Ptosis and Hearing Impaired (Has cochlear implant)
Respiratory: Rales (Right lower lung base); No Wheezes or Rhonchi
Cardiac: S1/S2, Regular Rhythm, Murmur (Diastolic 2/6) and Peripheral Edema (+2 bilateral lower legs); No Rub or Gallop
Breast: Deferred by me
GI: Soft, Non Tender, Non Distended, Normal Bowel Sounds and No Hepatosplenomegaly
Rectal: Deferred by Provider
Genito-urinary: Deferred by me
Musculoskeletal: No Clubbing, No Cyanosis, Edema, Left Lower Extremity (+2 pitting) and Edema, Right Lower Extremity (+2); No Edema, Left Upper Extremity or Edema, Right Upper Extremity
Skin: Warm and Dry; No Rash
Neuro: AO x 3, No Motor Deficits, Nonfocal/grossly intact, Cranial Nerves Intact and No Sensory Deficits; No DTR's Intact & Symmetrical, Slurred Speech, Facial Droop, Tremors or Sedated
Psych: Calm
#Acute on chronic diastolic CHF
Prior history ischemic cardiomyopathy resolved
Last intubation in June 2024 for heart failure
BNP> 27,000 patient reports dry weight 120 pounds currently 129 LBS(states gained 8 pounds in the past 6 days)
I/O, daily weight
-continue IV Lasix 40 mg twice daily
-Continue Jardiance
- Consult cardiology�DCA
-2D echo 11/17/2024: EF 55 to 60%, normal LVS LVSF no wall abnormalities,
Stage II diastolic dysfunction
Moderate to severe mitral regurg
Trace aortic regurg
Moderate tricuspid regurg PASP 66 mmHg
Dilated right atrium enlarged right ventricular size with reduced right ventricular systolic function
Since echo 06/26/2024 RIGHT heart appears dilated Hypokinetic and PA systolic pressure increased from 42 mmHg to 66 mmHg
�Repeat echo
# Pulmonary HTN
PASP 66 mmHg
Dilated right atrium enlarged right ventricular size with reduced right ventricular systolic function
Since echo 06/26/2024 RIGHT heart appears dilated Hypokinetic and PA systolic pressure increased from 42 mmHg to 66 mmHg
-Cont IV diuresis
-O2 goal >90%
#Acute hypokalemia due to diuretics
Monitor and replete
#Valvular heart disease moderate to severe MR, moderate TR
#Chronic leukocytosis
#Chronic thrombocytosis
#Polycythemia
#Iron deficiency anemia
- Follow CBC
# No acute infectious etiology found
� Monitor fever curve, white count
#Elevated troponin -most likely nonischemic myocardial injury
#CAD s/p PCI
-PCI 2022
-no on ASA due to recurrent GI bleed, Remains on Eliquis for AF
-Continue Zetia, Lipitor 80 mg, Toprol XL 12.5 mg twice daily
-Troponin 0.036, will trend 0.039 Dr. Norton aware
�Okay to restart Eliquis
�Cardiology following
�Repeat echo
#Prolonged QTc
QTc 547 MS prior 476 MS November 16, 2024
Hold prolonged QTc agents
- Resume amiodarone, daily EKGs
#Hypertension�benign
Continue Toprol XL 12.5 mg twice daily
#Paroxysmal A-fib
HOLD amiodarone
-cont toprol xl
-cont Eliquis
#Acute hyponatremia
� Monitor with diuresis
#HLD
-Continue Zetia and Lipitor
#CKD 3B
baseline appears 1.5
#Lung Ca status post right upper lung lobectomy
#Bladder wall CA status post TURBT
#Urinary incontinence
Continue Gemtesa 75 mg daily
#Transaminitis
� Most likely secondary congestive hepatopathy
� Monitor with diuresis
� No abdominal pain
#2 cm irregular nodular opacity superimposed in the retrosternal region not seen previously, possibly related to differences in patient position.
- Recommend follow-up nonemergent chest CT to exclude the possibility of a mass.
# GERD
#Husain's esophagus
#Gastric polyps/colonic polyps
#GI bleed
#Angiodysplasia of duodenum
#Anxiety
- Continue Prozac
#UNALAKLEET with cochlear
#Insomnia
Continue melatonin 10 mg at bedtime
DVT prophylaxis
Continue MANAGER AGRICULTURAL Eliquis
Full code
Anticipated Discharge: 24 - 48 hours
Subjective/Interval History
-
Date of Service: March 20, 2025
no acute events overnight
Objective Data
-
Labs:
Laboratory Results
03/20/25
09:04
WBC 18.8 H
Hgb 12.3
Hct 40.0
Plt Count 391
Sodium 134 L
Potassium 4.2
Chloride 99
Carbon Dioxide 27
BUN 30 H
Creatinine 1.4 H
Glucose 131 H
Calcium 8.8
Total Bilirubin 1.4 H
AST 67 H
ALT 42 H
Alkaline Phosphatase 140 H
Vital Signs:
Vital Signs
Temp Pulse Resp BP Pulse Ox
97.6 F 71 16 140/92 95
03/20/25 07:00 03/20/25 07:00 03/20/25 07:00 03/20/25 08:28 03/20/25 07:00
Review of Systems
-
History Source: Patient
All other systems: Reviewed and negative
Physical Exam
-
General: No Apparent Distress
HEENT: Normocephalic
Respiratory: Negative Wheezes
Cardiac: S1/S2 and JVD
GI: Soft and Nontender
Musculoskeletal: No Clubbing, No Cyanosis and No Edema
Skin: Warm
Neuro: Awake, Alert, Oriented and AO x 3
Psych: Calm
Data Reviewed
-
Diagnostic Radiology: Report Reviewed by me
Labs: Labs Reviewed by me
[2025-03-20 15:00] VITALS: BP 124/79
[2025-03-20] MEDS: DUONEB 3 ML INH (19:38)
[2025-03-20 19:51] VITALS: BP 124/77
[2025-03-20] MEDS: LIPITOR 80 MG PO (21:31)
[2025-03-20] MEDS: ZETIA 10 MG PO (21:31)
[2025-03-20] MEDS: PROZAC 20 MG PO (21:31)
[2025-03-20] MEDS: TYLENOL 500 MG PO (21:31)
[2025-03-20] MEDS: MELATONIN 10 MG PO (21:31)
[2025-03-20] MEDS: BENADRYL 25 MG PO (21:31)
[2025-03-20 23:02] VITALS: BP 139/74
[2025-03-21 03:00] VITALS: BP 136/77
[2025-03-21 06:00] VITALS: BMI 21.0
[2025-03-21 07:00] VITALS: BP 142/86
[2025-03-21] MEDS: SPIRIVA RESPIMAT 2.5 MCG 2 PUFF INH (07:57)
[2025-03-21] MEDS: STRIVERDI RESPIMAT 2 PUFF INH (07:58)
[2025-03-21] MEDS: TOPROL XL 12.5 MG PO ×2 (08:18→19:56)
[2025-03-21] MEDS: ELIQUIS 2.5 MG PO ×2 (08:18→19:56)
[2025-03-21] MEDS: FARXIGA 10 MG PO (08:18)
[2025-03-21] MEDS: PACERONE 200 MG PO (08:18)
[2025-03-21] MEDS: THERAGRAN 1 TABLET PO (08:18)
[2025-03-21] MEDS: FEOSOL 325 MG PO (08:18)
[2025-03-21] MEDS: PROTONIX 40 MG PO (08:18)
[2025-03-21] MEDS: LASIX 40 MG IV ×2 (08:18→16:23)
[2025-03-21] MEDS: B COMPLEX w/VITAMIN C 1 CAPLET PO (08:18)
--- NOTE | 2025-03-21 09:52 | W.PN.CARDCBS ---
Today's Communication / Plan
-
Cont IV lasix
Echo Am
Impression / Plan
-
.
PCP: Dr. Carlita Kwon
Combat Engineer: Dr. Matthias Meléndez
Impression:
Acute on chronic heart failure with preserved ejection
Nonischemic myocardial injury, likely related to above
Coronary artery disease
�LCx stenting 2010
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
� Status post 3.0 mm [place] FAHAD to mid LAD 11/05/2022
Stress-induced cardiomyopathy with recovered EF
Ischemic cardiomyopathy with recovered EF
Mitral regurgitation, moderate to severe
Paroxysmal atrial fibrillation, symptomatic
� [id number]: 5 (heart failure, hypertension, age, vascular disease, gender). Eliquis 2.5 mg twice daily for stroke risk reduction; reduced dosing as outpatient due to renal function and weight
� Rate controlled with metoprolol succinate to 12.5 mg twice daily
� Rhythm controlled amiodarone 200 mg daily
Rate related left bundle branch block
Anemia
Chronic leukocytosis, followed by hematology
Resection of bladder tumor, 2022
Bilateral lobectomies
- L lobectomy 06/2011, RUL 05/2026
Carotid stenosis
Bilateral cochlear implants, 2016
History of recurrent GI bleed
- 06/2022, 11/2023 (angiodysplastic lesions with stigmata of recent bleeding in duodenum by EGD)
Hypertension
Hyperlipidemia
Echo 02/27/21: LV: Normal size and function.� EF 50-55%.� Possible basal inferior HK.� RV: Normal, LA: Severely dilated, RA: Normal, MV: Moderate MR, AV: Sclerotic.� Trace AI.� TV: Mild TR with PAP 25 mmHg
Echo 07/07/22: LV: EF 35%.� Global HK with severe HK to akinesis of the basal and mid inferior and inferolateral segments.� Severe HK of the basal and mid anterior and anteroseptal.� Stage II diastolic dysfunction.� RV: Mildly dilated, LA: Severely
dilated, RA: Mildly dilated, MV: Mild to moderate eccentric MR, AV: Trace AI.� TV: Mild TR with PAP 4310/
GEORGINA 07/10/22: LV: Mildly reduced EF estimated 45-50%.� RV: Dilated, LA: Dilated, RA: Dilated, GEORGI: No thrombus, MV: Prolapse of A3-P3 segments with moderate eccentric MR.� ERO 0.2 cm� and regurgitant volume 32 by PISA method.� AV: Trace AI, TV: Mild
TR with PAP 32 mmHg
Echo 03/20/23: EF 45%, hypokinesis basal to mid anteroseptal, basal to mid inferior and inferolateral black, stage I diastolic dysfunction, mod MR
Echo 07/22/23: Ejection fraction 30 to 35%, global hypokinesis with anteroseptal, basal inferior, and basal septal akinesis., Moderate to severe MR, mild TR PA systolic of 53 mmHg
Echo 09/12/2023: EF visually 50 to 55%, 49% by Goldstein's, stage II diastolic dysfunction, severe LA dilation, moderate to severe eccentric MR, mild AI, moderate TR, PAP 58 mmHg
Echo 06/26/2024: EF 50-55%, stage II diastolic dysfunction, moderate posterior MR, trace AR, mild to moderate TR, estimated PAP 42 mmHg
Echo 11/17/2024: EF 50 to 55%, mild concentric LVH, stage II diastolic dysfunction, mild MAC, moderate posterior eccentric MR, trace AR, mild to moderate TR, PAP 42 mmHg, mildly dilated RA, no significant change compared to prior
Plan:
�Presented with shortness of breath, weight gain greater than 14 pounds. pBNP greater than 27,000
Cont IV lasix diuresis 40 mg BID
Monitor daily wts, Is and Os and cr.
Wt is down 3 lbs last 24 hrs
Cont medical therapy of nonMI troponin peak 0.039
Cont GDMT:
Jardiance 10 mg daily, metoprolol succinate 12.5 mg twice daily; on Lasix 40 mg twice daily as outpt
Echo pending.
Amiodarone has been resumed per EP. Monitor QTc
Regarding CAD, not on aspirin due to recurrent GI bleed; remains on Eliquis for AF
Cont atorvastatin 80 mg daily, Zetia 10 mg daily; metoprolol as above
Progress Note - Combat Engineer
Subjective
Date of Service: March 21, 2025
Pt seen and examined. No cp.
Objective
Labs:
Labs
Hgb 12.3 g/dL (12.0-16.0) 03/20/25 09:04
Hct 40.0 % (37.0-47.0) 03/20/25 09:04
Plt Count 391 10^3/uL (130-400) 03/20/25 09:04
Sodium 134 mmol/L (135-145) L 03/20/25 09:04
Potassium 4.2 mmol/L (3.5-5.1) 03/20/25 09:04
BUN 30 mg/dl (7-17) H 03/20/25 09:04
Creatinine 1.4 mg/dL (0.6-1.0) H 03/20/25 09:04
Glucose 131 mg/dl (70-99) H 03/20/25 09:04
Troponins
03/19/25 03/19/25 03/19/25
16:34 20:00 20:05
Troponin I 0.036 H* Cancelled 0.039 H*
03/20/25
02:24
Troponin I 0.037 H*
Vital Signs and I&O:
Vital Signs
Temp Pulse Resp BP Pulse Ox
97.7 F 65 14 142/86 95
03/21/25 07:00 03/21/25 08:00 03/21/25 08:00 03/21/25 07:00 03/21/25 07:00
Vital Signs
Temp Pulse Resp BP Pulse Ox
97.7 F 65 14 142/86 95
03/21/25 07:00 03/21/25 08:00 03/21/25 08:00 03/21/25 07:00 03/21/25 07:00
Intake & Output
03/19/25 03/20/25 03/21/25 03/22/25
06:59 06:59 06:59 06:59
Intake Total 1080 / 1080
Balance 1080 / 1080
Physical Exam
Physical Exam
General: No acute distress, AAOX3
Neck: Negative JVD
Heart: Regular, Negative S3 positive S1/S2, Negative S4, No murmur
Lungs: CTA b/l, negative wheezes/rales/rhonchi
Abd: Positive BS, NT/ND, neg rebound/rigidity/guarding
Ext: Negative cyanosis/clubbing/edema
Neuro: nonfocal
[2025-03-21 09:59] LABS: ALT (SGPT) 39 U/L (0-35); AST (SGOT) 57 U/L (14-36); Albumin 4.3 g/dl (3.5-5.0); Alkaline Phosphatase 129 U/L (38-126); Blood Urea Nitrogen 25 mg/dl (7-17); Calcium 9.1 mg/dl (8.4-10.2); Carbon Dioxide 28 mmol/L (22-30); Chloride 96 mmol/L (98-107); Estimated Creatinine Clearance 34 ml/min; Glucose 125 mg/dl (70-99); Magnesium 2.0 mg/dl (1.6-2.3); Potassium 3.8 mmol/L (3.5-5.1); Sodium 137 mmol/L (135-145); Total Protein 6.8 g/dl (6.3-8.2); eGFR 43.96
[2025-03-21 10:01] LABS: Hematocrit 42.7 % (37.0-47.0); Hemoglobin 13.0 g/dL (12.0-16.0); Mean Corp Hgb Conc. 30.4 g/dL (33.0-37.0); Mean Corpuscular Volume 87.5 fL (81.0-99.0); Platelet Count 414 10^3/uL (130-400); Red Cell Dist. Width 28.4 % (11.5-14.5)
[2025-03-21 11:00] VITALS: BP 109/63
[2025-03-21 12:08] LABS: Nucleated Red Blood Cells % 0.5 %
--- NOTE | 2025-03-21 13:39 | W.PN.HOSP.TC ---
Today's Communication/Plan
-
cont iv diuresis
echo in am
RUQ sono
Monitor LFTs, BMP
SYDNI
Assessment / Plan
Assessment / Plan
Physical Exam
General: Comfortable and Conversant
HEENT: NormoCephalic, Anicteric, Moist mucous membranes, PERRLA, Maili Conjunctivae, No Ptosis and Hearing Impaired (Has cochlear implant)
Respiratory: Rales (Right lower lung base); No Wheezes or Rhonchi
Cardiac: S1/S2, Regular Rhythm, Murmur (Diastolic 2/6) and Peripheral Edema (+2 bilateral lower legs); No Rub or Gallop
Breast: Deferred by me
GI: Soft, Non Tender, Non Distended, Normal Bowel Sounds and No Hepatosplenomegaly
Rectal: Deferred by Provider
Genito-urinary: Deferred by me
Musculoskeletal: No Clubbing, No Cyanosis, Edema, Left Lower Extremity (+2 pitting) and Edema, Right Lower Extremity (+2); No Edema, Left Upper Extremity or Edema, Right Upper Extremity
Skin: Warm and Dry; No Rash
Neuro: AO x 3, No Motor Deficits, Nonfocal/grossly intact, Cranial Nerves Intact and No Sensory Deficits; No DTR's Intact & Symmetrical, Slurred Speech, Facial Droop, Tremors or Sedated
Psych: Calm
#Acute on chronic diastolic CHF
Prior history ischemic cardiomyopathy resolved
Last intubation in June 2024 for heart failure
BNP> 27,000 patient reports dry weight 120 pounds currently 129 LBS(states gained 8 pounds in the past 6 days)
I/O, daily weight
-continue IV Lasix 40 mg twice daily
-Continue Jardiance
- Consult cardiology�DCA
-2D echo 11/17/2024: EF 55 to 60%, normal LVS LVSF no wall abnormalities, Stage II diastolic dysfunction; Moderate to severe mitral regurg
�Repeat echo
# Pulmonary HTN
PASP 66 mmHg
Dilated right atrium enlarged right ventricular size with reduced right ventricular systolic function
Since echo 06/26/2024 RIGHT heart appears dilated Hypokinetic and PA systolic pressure increased from 42 mmHg to 66 mmHg
-Cont IV diuresis
-O2 goal >90%
#Acute hypokalemia due to diuretics
Monitor and replete
#Valvular heart disease moderate to severe MR, moderate TR
#Chronic leukocytosis
#Chronic thrombocytosis
#Polycythemia
#Iron deficiency anemia
- Follow CBC
# No acute infectious etiology found
� Monitor fever curve, white count
#Elevated troponin -most likely nonischemic myocardial injury
#CAD s/p PCI
-PCI 2022
-no on ASA due to recurrent GI bleed, Remains on Eliquis for AF
-Continue Zetia, Lipitor 80 mg, Toprol XL 12.5 mg twice daily
-Troponin 0.036, will trend 0.039 Dr. Norton aware
�Okay to restart Eliquis
�Cardiology following
�Repeat echo
#Prolonged QTc
QTc 547 MS prior 476 MS November 16, 2024
Hold prolonged QTc agents
- Resume amiodarone, daily EKGs
#Hypertension�benign
Continue Toprol XL 12.5 mg twice daily
#Paroxysmal A-fib
HOLD amiodarone
-cont toprol xl
-cont Eliquis
#Acute hyponatremia
� Monitor with diuresis
#HLD
-Continue Zetia and Lipitor
#CKD 3B
baseline appears 1.5
#Lung Ca status post right upper lung lobectomy
#Bladder wall CA status post TURBT
#Urinary incontinence
Continue Gemtesa 75 mg daily
#Transaminitis
� Most likely secondary congestive hepatopathy
� Monitor with diuresis
� No abdominal pain
-Abd US
#RLE Numbness
-Warm to touch, pulses present
-F/u SYDNI
#2 cm irregular nodular opacity superimposed in the retrosternal region not seen previously, possibly related to differences in patient position.
- Recommend follow-up nonemergent chest CT to exclude the possibility of a mass.
# GERD
#Husain's esophagus
#Gastric polyps/colonic polyps
#GI bleed
#Angiodysplasia of duodenum
#Anxiety
- Continue Prozac
#[employer] with cochlear
#Insomnia
Continue melatonin 10 mg at bedtime
DVT prophylaxis
Continue [employer] Eliquis
Full code
Anticipated Discharge: 24 - 48 hours
Subjective/Interval History
-
Date of Service: March 21, 2025
no acute events overnight
Objective Data
-
Labs:
Laboratory Results
03/21/25
09:27
WBC 23.4 H
Hgb 13.0
Hct 42.7
Plt Count 414 H
Sodium 137
Potassium 3.8
Chloride 96 L
Carbon Dioxide 28
BUN 25 H
Creatinine 1.3 H
Glucose 125 H
Calcium 9.1
Total Bilirubin 1.4 H
AST 57 H
ALT 39 H
Alkaline Phosphatase 129 H
Vital Signs:
Vital Signs
Temp Pulse Resp BP Pulse Ox
98.4 F 70 20 109/63 95
03/21/25 11:00 03/21/25 11:00 03/21/25 11:00 03/21/25 11:00 03/21/25 11:00
I&O
03/20/25 03/21/25 03/22/25
06:59 06:59 06:59
Intake Total 1080 / 1080 360 / 360
Balance 1080 / 1080 360 / 360
Review of Systems
-
History Source: Patient
All other systems: Reviewed and negative
Data Reviewed
-
Diagnostic Radiology: Report Reviewed by me
Labs: Labs Reviewed by me
[2025-03-21 15:00] VITALS: BP 109/69
[2025-03-21 19:00] VITALS: BP 125/71
[2025-03-21] MEDS: DUONEB 3 ML INH (19:27)
[2025-03-21] MEDS: TYLENOL 500 MG PO (21:38)
[2025-03-21] MEDS: LIPITOR 80 MG PO (21:38)
[2025-03-21] MEDS: MELATONIN 10 MG PO (21:38)
[2025-03-21] MEDS: PROZAC 20 MG PO (21:38)
[2025-03-21] MEDS: ZETIA 10 MG PO (21:38)
[2025-03-21] MEDS: BENADRYL 25 MG PO (21:39)
[2025-03-21 23:00] VITALS: BP 113/56
[2025-03-22] VITALS (7 sets, daily range): BP systolic 104–131; BP diastolic 61–82; BMI 21.3; BMI 20.8
[2025-03-22 07:11] LABS: ALT (SGPT) 31 U/L (0-35); AST (SGOT) 50 U/L (14-36); Albumin 3.6 g/dl (3.5-5.0); Alkaline Phosphatase 109 U/L (38-126); Blood Urea Nitrogen 24 mg/dl (7-17); Calcium 8.7 mg/dl (8.4-10.2); Carbon Dioxide 29 mmol/L (22-30); Chloride 96 mmol/L (98-107); Estimated Creatinine Clearance 37 ml/min; Glucose 89 mg/dl (70-99); Potassium 4.1 mmol/L (3.5-5.1); Sodium 133 mmol/L (135-145); Total Protein 6.2 g/dl (6.3-8.2); eGFR 48.39
[2025-03-22 07:19] LABS: Hematocrit 38.4 % (37.0-47.0); Hemoglobin 11.3 g/dL (12.0-16.0); Mean Corp Hgb Conc. 29.4 g/dL (33.0-37.0); Mean Corpuscular Volume 88.7 fL (81.0-99.0); Platelet Count 306 10^3/uL (130-400); Red Cell Dist. Width 27.8 % (11.5-14.5)
[2025-03-22] MEDS: SPIRIVA RESPIMAT 2.5 MCG INH (08:16)
[2025-03-22] MEDS: STRIVERDI RESPIMAT INH (08:16)
[2025-03-22 09:04] LABS: Nucleated Red Blood Cells % 0.6 %
[2025-03-22] MEDS: B COMPLEX w/VITAMIN C 1 CAPLET PO (09:05)
[2025-03-22] MEDS: FARXIGA 10 MG PO (09:05)
[2025-03-22] MEDS: TOPROL XL 12.5 MG PO (09:05)
[2025-03-22] MEDS: THERAGRAN 1 TABLET PO (09:05)
[2025-03-22] MEDS: ELIQUIS 2.5 MG PO ×2 (09:05→20:23)
[2025-03-22] MEDS: PROTONIX 40 MG PO (09:05)
[2025-03-22] MEDS: LASIX 40 MG IV ×2 (09:06→16:00)
[2025-03-22] MEDS: FEOSOL 325 MG PO (09:06)
[2025-03-22] MEDS: PACERONE 200 MG PO (09:06)
--- NOTE | 2025-03-22 10:30 | W.PN.HOSP.TC ---
Today's Communication/Plan
-
follow up echo results
trial of Gabapentin
appreciate Cardiology
Assessment / Plan
Assessment / Plan
#Acute on chronic diastolic CHF
#Valvular heart disease moderate to severe MR, moderate TR
-Prior history ischemic cardiomyopathy resolved
-Last intubation in June 2024 for heart failure
-BNP> 27,000 patient reports dry weight 120 pounds
-I/O, daily weight
-continue IV Lasix 40 mg twice daily
-Continue Jardiance
-appreciate Cardiology consult
-2D echo 11/17/2024: EF 55 to 60%, normal LVS LVSF no wall abnormalities, Stage II diastolic dysfunction; Moderate to severe mitral regurg
�Repeat echo today
# Pulmonary HTN
PASP 66 mmHg
Dilated right atrium enlarged right ventricular size with reduced right ventricular systolic function
Since echo 06/26/2024 RIGHT heart appears dilated Hypokinetic and PA systolic pressure increased from 42 mmHg to 66 mmHg
-Cont IV diuresis
-O2 goal >90%
#Acute hypokalemia due to diuretics
Monitor and replete
#Chronic leukocytosis
#Chronic thrombocytosis
#Polycythemia
#Iron deficiency anemia
- Follow CBC
-No acute infectious etiology found
� Monitor fever curve, white count
Sciatica pain
-patient states she was prescribed a steroid course prior to coming in, has not taken yet. pain improved
-will trial evening Gabapentin
#Elevated troponin -most likely nonischemic myocardial injury
#CAD s/p PCI
-PCI 2022
-no on ASA due to recurrent GI bleed, Remains on Eliquis for AF
-Continue Zetia, Lipitor 80 mg, Toprol XL 12.5 mg twice daily
-continue Eliquis
-appreciate Cardiology
#Prolonged QTc
QTc 547 MS prior 476 MS November 16, 2024
Hold prolonged QTc agents
- Resume amiodarone, daily EKGs
#Hypertension�benign
Continue Toprol XL 12.5 mg twice daily
#Paroxysmal A-fib
HOLD amiodarone
-cont toprol xl
-cont Eliquis
#Acute hyponatremia
� Monitor with diuresis
#HLD
-Continue Zetia and Lipitor
#CKD 3B
baseline appears 1.5
#Lung Ca status post right upper lung lobectomy
#Bladder wall CA status post TURBT
#Urinary incontinence
Continue Gemtesa 75 mg daily
#Transaminitis
� Most likely secondary congestive hepatopathy
� Monitor with diuresis
� No abdominal pain
-Abd US
#RLE Numbness
-Warm to touch, pulses present
-F/u SYDNI
#2 cm irregular nodular opacity superimposed in the retrosternal region not seen previously, possibly related to differences in patient position.
- Recommend follow-up nonemergent chest CT to exclude the possibility of a mass.
Abnl US, suspect hemangiomas
# GERD
#Husain's esophagus
#Gastric polyps/colonic polyps
#GI bleed
#Angiodysplasia of duodenum
#Anxiety
- Continue Prozac
#[place] with cochlear
#Insomnia
Continue melatonin 10 mg at bedtime
DVT prophylaxis
Continue [employer]ER Eliquis
Full code
Anticipated Discharge: Within 24 hours
Subjective/Interval History
-
Date of Service: March 22, 2025
she is feeling better than when she came in, less swollen
intermittently dizzy which has been a chronic issue, no vertigo
Objective Data
-
Labs:
Laboratory Results
03/22/25
06:13
WBC 17.3 H
Hgb 11.3 L
Hct 38.4
Plt Count 306 D
Sodium 133 L
Potassium 4.1
Chloride 96 L
Carbon Dioxide 29
BUN 24 H
Creatinine 1.2 H
Glucose 89
Calcium 8.7
Total Bilirubin 1.5 H
AST 50 H
ALT 31
Alkaline Phosphatase 109
Vital Signs:
Vital Signs
Temp Pulse Resp BP Pulse Ox
98.7 F 68 18 131/73 95
03/22/25 07:35 03/22/25 09:05 03/22/25 07:35 03/22/25 09:05 03/22/25 07:35
I&O
03/21/25 03/22/25 03/23/25
06:59 06:59 06:59
Intake Total 1080 / 1080 600 / 600
Balance 1080 / 1080 600 / 600
Review of Systems
-
History Source: Patient
All other systems: Reviewed and negative
Physical Exam
-
General: No Apparent Distress
HEENT: Normocephalic
Respiratory: Negative Wheezes
Cardiac: S1/S2 and JVD
GI: Soft and Nontender
Musculoskeletal: No Clubbing, No Cyanosis and No Edema
Skin: Warm
Neuro: Awake, Alert, Oriented and AO x 3
Psych: Calm
Data Reviewed
-
Diagnostic Radiology: Report Reviewed by me
Labs: Labs Reviewed by me
--- NOTE | 2025-03-22 10:54 | W.PN.CARDCBS ---
Addendum entered and electronically signed by Matthias Meléndez MD 03/22/25 16:38:
I saw and examined the patient.
The GATE GUARD or PA's note was reviewed and I agree with the note.
Comment: General: Well developed, well nourished in NAD.
Neck: Supple, no JVD, HJR, carotids +2 B/L, no bruits bilaterally.
Heart: Non displaced PMI, RRR, no murmurs, No S3, S4, no rubs.
Lungs: Scattered rhonchi
Extremities: No clubbing, cyanosis or edema bilaterally.
Neuro: Grossly nonfocal, awake, alert and oriented x3.
She appears improved. She complains of back pain. Echocardiogram looks stable with improved PA pressures. MRI looked better as well and is only mild to moderate. Continue IV Lasix another 24 hours and consider change to oral Lasix on 03/23.
Discussed with primary service and patient in detail.
Original Note:
Today's Communication / Plan
-
await echo
Impression / Plan
-
PCP: Dr. Carlita Kwon
Aviation Warfare Systems Operator: Dr. Matthias Meléndez
Impression:
Acute on chronic heart failure with preserved ejection
Nonischemic myocardial injury, likely related to above
Coronary artery disease
�LCx stenting 2010
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
� Status post 3.0 mm Ino FAHAD to mid LAD 11/05/2022
Stress-induced cardiomyopathy with recovered EF 2023
Ischemic cardiomyopathy with recovered EF
Mitral regurgitation, moderate to severe
Paroxysmal atrial fibrillation, symptomatic
� [id number]: 5 (heart failure, hypertension, age, vascular disease, gender). Eliquis 2.5 mg twice daily for stroke risk reduction; reduced dosing as outpatient due to renal function and weight
� Rate controlled with metoprolol succinate to 12.5 mg twice daily
� Rhythm controlled amiodarone 200 mg daily
Rate related left bundle branch block
Anemia
Chronic leukocytosis, followed by hematology
Resection of bladder tumor, 2022
Bilateral lobectomies
- L lobectomy 06/2011, RUL 05/2026
Carotid stenosis
Bilateral cochlear implants, 2016
History of recurrent GI bleed
- 06/2022, 11/2023 (angiodysplastic lesions with stigmata of recent bleeding in duodenum by EGD)
Hypertension
Hyperlipidemia
Echo 02/27/21: LV: Normal size and function.� EF 50-55%.� Possible basal inferior HK.� RV: Normal, LA: Severely dilated, RA: Normal, MV: Moderate MR, AV: Sclerotic.� Trace AI.� TV: Mild TR with PAP 25 mmHg
Echo 07/07/22: LV: EF 35%.� Global HK with severe HK to akinesis of the basal and mid inferior and inferolateral segments.� Severe HK of the basal and mid anterior and anteroseptal.� Stage II diastolic dysfunction.� RV: Mildly dilated, LA: Severely
dilated, RA: Mildly dilated, MV: Mild to moderate eccentric MR, AV: Trace AI.� TV: Mild TR with PAP 4310/
GEORGINA 07/10/22: LV: Mildly reduced EF estimated 45-50%.� RV: Dilated, LA: Dilated, RA: Dilated, GEORGI: No thrombus, MV: Prolapse of A3-P3 segments with moderate eccentric MR.� ERO 0.2 cm� and regurgitant volume 32 by PISA method.� AV: Trace AI, TV: Mild
TR with PAP 32 mmHg
Echo 03/20/23: EF 45%, hypokinesis basal to mid anteroseptal, basal to mid inferior and inferolateral black, stage I diastolic dysfunction, mod MR
Echo 07/22/23: Ejection fraction 30 to 35%, global hypokinesis with anteroseptal, basal inferior, and basal septal akinesis., Moderate to severe MR, mild TR PA systolic of 53 mmHg
Echo 09/12/2023: EF visually 50 to 55%, 49% by Goldstein's, stage II diastolic dysfunction, severe LA dilation, moderate to severe eccentric MR, mild AI, moderate TR, PAP 58 mmHg
Echo 06/26/2024: EF 50-55%, stage II diastolic dysfunction, moderate posterior MR, trace AR, mild to moderate TR, estimated PAP 42 mmHg
Echo 11/17/2024: EF 50 to 55%, mild concentric LVH, stage II diastolic dysfunction, mild MAC, moderate posterior eccentric MR, trace AR, mild to moderate TR, PAP 42 mmHg, mildly dilated RA, no significant change compared to prior
Left heart cath 06/2022: Chronic total occlusion of RCA with borderline 50 to 60% mid LAD stenosis previously treated medically with patent left circumflex stent
Plan:
�Presented 03/19 with shortness of breath, weight gain greater than 14 pounds. pBNP greater than 27,000
- Weight up 2 pounds overnight to 124 pounds (although wt taken on bed scale and other wts standing scale). Reweigh on standing scale. Wt at time of discharge 11/21/2024 for acute HF was 118 lbs. Most recent outpt wt in cardiology office 121 lbs
01/2025.
-Creatinine stable at 1.2.
-Consider up titration of Lasix given 2 lb weight gain overnight and overall wt not at baseline
Currently on IV lasix 40 mg BID
Monitor daily wts, Is and Os and cr.
Cont GDMT:
Jardiance 10 mg daily (switched to Farxiga while inpatient), metoprolol succinate 12.5 mg twice daily; on Lasix 40 mg twice daily as outpt
Cont medical therapy of nonMI troponin peak 0.039
Echo pending.
Amiodarone has been resumed per EP. QTc in stable range on EKG. Repeat EKG in am.
Regarding CAD, not on aspirin due to recurrent GI bleed; remains on Eliquis for AF
Cont atorvastatin 80 mg daily, Zetia 10 mg daily; metoprolol as above
Progress Note - Aviation Warfare Systems Operator
Subjective
Date of Service: March 22, 2025
feels well, SOB improved
Objective
Labs:
03/22/25 06:13
03/22/25 06:13
Labs
Hgb 11.3 g/dL (12.0-16.0) L 03/22/25 06:13
Hct 38.4 % (37.0-47.0) 03/22/25 06:13
Plt Count 306 10^3/uL (130-400) D 03/22/25 06:13
Sodium 133 mmol/L (135-145) L 03/22/25 06:13
Potassium 4.1 mmol/L (3.5-5.1) 03/22/25 06:13
BUN 24 mg/dl (7-17) H 03/22/25 06:13
Creatinine 1.2 mg/dL (0.6-1.0) H 03/22/25 06:13
Glucose 89 mg/dl (70-99) 03/22/25 06:13
Troponins
03/19/25 03/19/25 03/19/25
16:34 20:00 20:05
Troponin I 0.036 H* Cancelled 0.039 H*
03/20/25
02:24
Troponin I 0.037 H*
Vital Signs and I&O:
Vital Signs
Temp Pulse Resp BP Pulse Ox
98.7 F 68 18 131/73 95
03/22/25 07:35 03/22/25 09:05 03/22/25 07:35 03/22/25 09:05 03/22/25 07:35
Vital Signs
Temp Pulse Resp BP Pulse Ox
98.7 F 68 18 131/73 95
03/22/25 07:35 03/22/25 09:05 03/22/25 07:35 03/22/25 09:05 03/22/25 07:35
Intake & Output
03/20/25 03/21/25 03/22/25 03/23/25
06:59 06:59 06:59 06:59
Intake Total 1080 / 1080 600 / 600
Balance 1080 / 1080 600 / 600
Physical Exam
Physical Exam
GEN: No distress, awake, Ox3
HEENT: supple, anicteric, mmm
LUNGS: CTA, no wheezes/rales
CV: Reg, S1/S2, 1/6 systolic murmur apex
ABD: soft, BS+, NT/ND
EXT: No edema
NEURO: Gross non-focal
SKIN: No rash
--- NOTE | 2025-03-22 14:29 | CM ---
Chart reviewed. Care ongoing
Cardio following, repeat echo today
Therapy has no skilled needs at this time
Plan: Home, no needs
[2025-03-22] MEDS: DUONEB 3 ML INH (19:58)
[2025-03-22] MEDS: TOPROL XL PO (20:24)
--- NOTE | 2025-03-22 21:08 | W.DCSUMMARY ---
Discharge Summary
Discharge Data
Date of Admission: 03/19/25
Date of Discharge: 03/23/25
-
Pending Results: No
Hospital Course
Discharging Physician : Dr. Dana Qureshi
Disposition : Home
Primary care physician : Dr. Carlita Kwon
Principal Discharge diagnosis : Heart Failure preserved EF, Acute Exacerbation
Hospital Course :
Ms. 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
hx lung cancer with bilateral lobectomies, GERD, Husain's esophagus presents to the ER with weight gain and increasing lower extremity swelling. She reports chest discomfort 2 days ago when resting, currently chest pain free.
Triage vitals stable. Labs with JVP and bilateral lower extremity swelling. EKG with new q waves lateral leads. Labs significant for WBC 22.3 (near baseline), Cr 1.3 (baseline), Trop 0.036. She was admitted to medicine with Cardiology consulting
for acute heart failure exacerbation.
She was diuresed during hospitalization with drop in weight from 58.9 to 54.8kg. Lower extremity swelling resolved. Repeat TTE (several days post diuresis) with improvement in MR and PA pressures. She is discharged home on increased Lasix dosing
from 40mg twice a day to 60mg twice a day. Given soft blood pressure, her ROAD CLE[employer] Metoprolol XL is decreased from 12.5mg twice a day to 12.5mg qhs.
Patient had arterial US without finding of focal arterial stenosis.
Of note, CXR on admission showed a 2cm irregular nodular opacity - outpatient follow up CT chest recommended.
Additionally, abdomen US obtained for elevated liver enzymes with finding of hepatosplenomegaly; 2 foci in right hepatic lobe may represent hemangiomas and further evaluation with dedicated MRI with and without contrast recommended.
Patient complained of sciatica-like pain and was started on low dose Gabapentin. She tolerated this well and complained of no pain overnight. She is told she can increase it to 200mg qhs if pain returns and then follow up with her PCP.
Time spent on discharge was 35 minutes.
Important imaging findings :
CXR 03/19/25
IMPRESSION:
Slightly increased moderate cardiomegaly. No vascular congestion appreciated Stable prominent central pulmonary arteries, raising the possibility of pulmonary hypertension.
Stable hazy appearance of the mid to lower lung zones. Possibly recurrent pulmonary edema or chronic parenchymal disease.
A 2 cm irregular nodular opacity superimposed in the retrosternal region not seen previously, possibly related to differences in patient position. Recommend follow-up nonemergent chest CT to exclude the possibility of a mass.
Abdomen US 03/22/25
IMPRESSION:
Gallstones/sludge without evidence of acute cholecystitis. There is no biliary duct dilation.
Hepatosplenomegaly. There are 2 echogenic foci within the right hepatic lobe measuring up to 2.1 cm which may represent hemangiomas although further evaluation with dedicated MRI with and without contrast is recommended.
The kidneys appear echogenic with cortical thinning which may be sequelae of chronic medical renal disease.
Arterial US 03/22/25
IMPRESSION:
1. Right ankle-brachial index 1.05, compared to 0.98 on prior study. Right toe brachial index 0.7. Scattered arterial plaque without focal significant stenosis demonstrated.
2. Left ankle brachial index 1.14, compared to 0.99 on prior. Left toe brachial index 0.51. Scattered arterial plaque without focal arterial stenosis demonstrated.
TTE 03/22/25
SUMMARY
1. Ejection fraction is 55-60% by visual assessment.
2. Compared to a prior transthoracic echocardiogram study from 11/17/2024 MR has improved from moderate-severe to mild–moderate. PA systolic pressure is decreased from 66 mmHg to 42 mmHg.
3. Mild concentric left ventricular hypertrophy.
4. Mild to moderate mitral valve regurgitation.
5. Mild to moderate tricuspid regurgitation. Estimated pulmonary artery pressure of 42 mmHg assuming a right atrial pressure of 3 mmHg.
6. Right ventricular cavity size cavity is mildly dilated.
7. Right ventricular systolic function is mildly decreased.
8. Severely dilated right atrium.
Procedure findings :
Discharge Plan
-
Patient Disposition: Home (Routine Discharge)
Discharge Diagnosis/Procedures: Acute on chronic heart failure with preserved ejection fraction
Diet: Low Sodium and Restrict fluids to 48 oz
Activity: As tolerated
Driving Restrictions: As prior to admission
Blood Work: BMP in one week
Others Tests: Abdomen MRI, to follow up suspected hepatic hemangiomas seen on US; non-con chest CT to follow up on CXR results
Specialty Instructions: Weigh Daily- Call MD for wt gain/loss 3 lbs overnight/5 lbs in 1 week
Instructions: *DCA Heart Failure Instructions
Referrals:
Matthias Meléndez MD [Active, Cardiology] - 04/01/25 12:20 pm
Referral Note: You have a cardiology follow-up appointment at the [facility]. Please call with questions
Carlita Kwon MD [Family Provider, Family Practice] - in less than 1 week
Additional Discharge Medication Instructions: Your Lasix dosing is increased from 40mg to 60mg twice a day. You are prescribed 20mg tablets to take in addition to your 40mg tablet for 60mg total.
You are started on Gabapentin at night for sciatica type pain. You may increase dose to 200mg at night. Dr. Kwon can help guide further dosing adjustments.
Decrease your Metoprolol 12.5mg from twice a day to only in evenings.
Prescriptions:
New
gabapentin 100 mg Capsule
100 mg PO HS Qty: 30 0RF
furosemide [Lasix] 20 mg tablet
60 mg PO BID Qty: 60 0RF
Rx Instructions:
Take 1 20mg tablet with 1 40mg tablet for 60mg total
Continued
atorvastatin [Lipitor] 80 mg Tablet
80 mg PO HS
fluoxetine [Prozac] 20 mg Capsule
20 mg PO HS
ezetimibe [Zetia] 10 mg Tablet
10 mg PO HS
Jardiance 10 mg tablet
10 mg PO DAILY
amiodarone 200 mg Tablet
200 mg PO DAILY
Gemtesa 75 mg Tablet
75 mg PO DAILY
therapeutic multivitamin Tablet
1 tab PO DAILY
umeclidinium-vilanterol [Anoro Ellipta] 62.5-25 mcg/actuation Blister With Device
1 inh INHALATION R DAILY
ipratropium-albuterol 0.5 mg-3 mg(2.5 mg base)/3 mL Solution For Nebulization
3 ml INHALATION R HS
pantoprazole [Protonix] 40 mg Tablet,Delayed Release (Dr/Ec)
40 mg PO DAILY
vitamin B complex Tablet
1 tab PO DAILY
diphenhydramine-acetaminophen [Acetaminophen PM] 25-500 mg Tablet
1 tab PO HS
melatonin 10 mg Tablet
10 mg PO HS
Eliquis 2.5 mg tablet
2.5 mg PO BID
ferrous sulfate [FeroSul] 325 mg (65 mg iron) Tablet
325 mg PO DAILY Qty: 30 0RF
acetaminophen [Tylenol] 325 mg Tablet
975 mg PO Q6H PRN (Reason: pain)
Changed
metoprolol succinate [Toprol XL] 25 mg Tablet Extended Release 24 Hr
12.5 mg PO HS Qty: 0 0RF
Discontinued
furosemide 40 mg Tablet
40 mg PO BID AT 0800,1600 Qty: 60 0RF
Discharge Orders:
Discharge Patient (As Directed); Ordered 03/23/25
Ordered By: Dana Qureshi
Discharge Date and Time
Print Language: GUINEAN
[2025-03-22] MEDS: PROZAC 20 MG PO (22:45)
[2025-03-22] MEDS: TYLENOL 500 MG PO (22:45)
[2025-03-22] MEDS: BENADRYL 25 MG PO (22:45)
[2025-03-22] MEDS: LIPITOR 80 MG PO (22:45)
[2025-03-22] MEDS: ZETIA 10 MG PO (22:45)
[2025-03-22] MEDS: NEURONTIN 100 MG PO (22:45)
[2025-03-22] MEDS: MELATONIN 10 MG PO (22:45)
[2025-03-23 03:55] VITALS: BP 111/70
[2025-03-23 06:00] VITALS: BMI 20.5
[2025-03-23] MEDS: SPIRIVA RESPIMAT 2.5 MCG 2 PUFF INH (07:42)
[2025-03-23] MEDS: STRIVERDI RESPIMAT 2 PUFF INH (07:42)
[2025-03-23 08:06] VITALS: BP 107/61
[2025-03-23] MEDS: TOPROL XL PO (08:07)
[2025-03-23] MEDS: PACERONE 200 MG PO (08:08)
[2025-03-23] MEDS: LASIX 40 MG IV (08:08)
[2025-03-23] MEDS: FARXIGA 10 MG PO (08:08)
[2025-03-23] MEDS: ELIQUIS 2.5 MG PO (08:08)
[2025-03-23] MEDS: B COMPLEX w/VITAMIN C 1 CAPLET PO (08:08)
[2025-03-23] MEDS: PROTONIX 40 MG PO (08:08)
[2025-03-23] MEDS: FEOSOL 325 MG PO (08:08)
[2025-03-23] MEDS: THERAGRAN 1 TABLET PO (08:08)
[2025-03-23 09:24] LABS: ALT (SGPT) 28 U/L (0-35); AST (SGOT) 38 U/L (14-36); Albumin 3.4 g/dl (3.5-5.0); Alkaline Phosphatase 107 U/L (38-126); Blood Urea Nitrogen 25 mg/dl (7-17); Calcium 8.4 mg/dl (8.4-10.2); Carbon Dioxide 29 mmol/L (22-30); Chloride 97 mmol/L (98-107); Estimated Creatinine Clearance 37 ml/min; Glucose 91 mg/dl (70-99); Magnesium 2.0 mg/dl (1.6-2.3); Potassium 3.8 mmol/L (3.5-5.1); Sodium 135 mmol/L (135-145); Total Protein 5.8 g/dl (6.3-8.2); eGFR 48.39
--- NOTE | 2025-03-23 11:07 | W.PN.HOSP.TC ---
Today's Communication/Plan
-
discharge today
follow up Cardiology recs on Lasix dosing
Assessment / Plan
Assessment / Plan
#Acute on chronic diastolic CHF
#Valvular heart disease moderate to severe MR, moderate TR
# Pulmonary HTN
-Prior history ischemic cardiomyopathy resolved
-Last intubation in June 2024 for heart failure
-BNP> 27,000 patient reports dry weight 120 pounds
-I/O, daily weight
-continue IV Lasix 40 mg twice daily
-Continue Jardiance
-appreciate Cardiology consult
-2D echo 11/17/2024: EF 55 to 60%, normal LVS LVSF no wall abnormalities, Stage II diastolic dysfunction; Moderate to severe mitral regurg;
-repeat echo 03/22/25 with mild improvement in MR and PA pressures; stable EF
#Acute hypokalemia due to diuretics
Monitor and replete
#Chronic leukocytosis
#Chronic thrombocytosis
#Polycythemia
#Iron deficiency anemia
Sciatica pain
-patient states she was prescribed a steroid course prior to coming in, has not taken yet. pain improved
-will trial evening Gabapentin --> patient states was helpful, will prescribe at discharge
#Elevated troponin -most likely nonischemic myocardial injury
#CAD s/p PCI
-PCI 2022
-no on ASA due to recurrent GI bleed, Remains on Eliquis for AF
-Continue Zetia, Lipitor 80 mg, Toprol XL 12.5 mg twice daily
-continue Eliquis
-appreciate Cardiology
#Prolonged QTc
QTc 547 MS prior 476 MS November 16, 2024
Hold prolonged QTc agents
- Resume amiodarone, daily EKGs
#Hypertension�benign
Continue Toprol XL 12.5 mg twice daily
#Paroxysmal A-fib
-continue amiodarone
-cont T oprol xl
-cont Eliquis
#Acute hyponatremia
� Monitor with diuresis
#HLD
-Continue Zetia and Lipitor
#CKD 3B
baseline appears 1.5
#Lung Ca status post right upper lung lobectomy
#Bladder wall CA status post TURBT
#Urinary incontinence
Continue Gemtesa 75 mg daily
#Transaminitis
� Most likely secondary congestive hepatopathy
� Monitor with diuresis
� No abdominal pain
-Abd US
#RLE Numbness
-Warm to touch, pulses present
-F/u SYDNI
#2 cm irregular nodular opacity superimposed in the retrosternal region not seen previously, possibly related to differences in patient position.
- Recommend follow-up nonemergent chest CT to exclude the possibility of a mass.
Abnl US, suspect hemangiomas
# GERD
#Husain's esophagus
#Gastric polyps/colonic polyps
#GI bleed
#Angiodysplasia of duodenum
#Anxiety
- Continue Prozac
#NINILCHIK with cochlear
#Insomnia
Continue melatonin 10 mg at bedtime
DVT prophylaxis
Continue HISTOLOGY TECHNOLOGIST Eliquis
Full code
Anticipated Discharge: Within 24 hours
Subjective/Interval History
-
Date of Service: March 23, 2025
she is feeling well today
hopeful for discharge
swelling resolved
no lightheadedness or dizziness
states she slept well and doesn't have sciatica pain today
Objective Data
-
Labs:
Laboratory Results
03/23/25
08:03
Sodium 135
Potassium 3.8
Chloride 97 L
Carbon Dioxide 29
BUN 25 H
Creatinine 1.2 H
Glucose 91
Calcium 8.4
Total Bilirubin 1.3
AST 38 H
ALT 28
Alkaline Phosphatase 107
Vital Signs:
Vital Signs
Temp Pulse Resp BP Pulse Ox
97.7 F 59 12 107/61 96
03/23/25 08:06 03/23/25 08:07 03/23/25 08:06 03/23/25 08:07 03/23/25 08:06
I&O
03/22/25 03/23/25 03/24/25
06:59 06:59 06:59
Intake Total 600 / 600 1440 / 1440
Balance 600 / 600 1440 / 1440
Review of Systems
-
History Source: Patient
All other systems: Reviewed and negative
Physical Exam
-
General: No Apparent Distress
HEENT: Normocephalic
Respiratory: Negative Wheezes
Cardiac: S1/S2 and JVD
GI: Soft and Nontender
Musculoskeletal: No Clubbing, No Cyanosis and No Edema
Skin: Warm
Neuro: Awake, Alert, Oriented and AO x 3
Psych: Calm
Data Reviewed
-
Diagnostic Radiology: Report Reviewed by me
Labs: Labs Reviewed by me
--- NOTE | 2025-03-23 11:45 | W.DS.TRANS ---
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
-
Discharge Instructions:
Sleep Apnea Risk Intermediate
Discharge Diagnosis/Procedures Acute on chronic heart failure with preserved
ejection fraction
Diet Low Sodium,Restrict fluids to 48 oz
Activity As tolerated
Driving Restrictions As prior to admission
Blood Work BMP in one week
Others Tests Abdomen MRI, to follow up suspected hepatic
hemangiomas seen on US; non-con chest CT to
follow up on CXR results
Specialty Instructions Weigh Daily
Instructions: *DCA Heart Failure Instructions
Stand-Alone Forms:
Changes to Home Medications: Yes
Discharge Medications:
DC Medications w/original date entered in [facility]
atorvastatin 80 mg tablet (Lipitor) 80 mg PO HS High cholesterol 04/07/22
ezetimibe 10 mg tablet (Zetia) 10 mg PO HS High cholesterol 04/07/22
fluoxetine 20 mg capsule (Prozac) 20 mg PO HS Mental Health 04/07/22
empagliflozin 10 mg tablet (Jardiance) 10 mg PO DAILY heart protection 02/18/23
amiodarone 200 mg tablet 200 mg PO DAILY Arrhythmia 09/21/23
vibegron 75 mg tablet (Gemtesa) 75 mg PO DAILY Urinary Issue 04/22/24
metoprolol succinate 25 mg tablet,extended release 24 hr (Toprol XL) 12.5 mg PO BID Heart Failure 06/25/24
therapeutic multivitamin 1 tab PO DAILY Supplement 06/25/24
umeclidinium 62.5 mcg-vilanterol 25 mcg/actuation powdr for inhalation (Anoro Ellipta) 1 inh inhalation R DAILY Lung/Breathing Issues 06/25/24
apixaban 2.5 mg tablet (Eliquis) 2.5 mg PO BID Blood Clot Prevention/Tx 11/16/24
diphenhydramine 25 mg-acetaminophen 500 mg tablet (Acetaminophen PM) 1 tab PO HS Sleep 11/16/24
ipratropium 0.5 mg-albuterol 3 mg (2.5 mg base)/3 mL nebulization soln 3 ml inhalation R HS Lung/Breathing Issues 11/16/24
melatonin 10 mg tablet 10 mg PO HS Sleep 11/16/24
pantoprazole 40 mg tablet,delayed release (Protonix) 40 mg PO DAILY Gastrointestinal Issue 11/16/24
vitamin B complex 1 tab PO DAILY Supplement 11/16/24
ferrous sulfate 325 mg (65 mg iron) tablet (FeroSul) 325 mg PO DAILY #30 tabs 11/21/24
acetaminophen 325 mg tablet (Tylenol) 975 mg PO Q6H PRN pain 03/19/25
furosemide 20 mg tablet (Lasix) 60 mg (3 x 20 mg) PO BID #60 tabs 03/23/25
gabapentin 100 mg capsule 100 mg PO HS #30 caps 03/23/25
Home Medication Changes
Your Lasix dosing is increased from 40mg to 60mg twice a day. You are prescribed 20mg tablets to take in addition to your 40mg tablet for 60mg total.
You are started on Gabapentin at night for sciatica type pain. You may increase dose to 200mg at night. Dr. Kwon can help guide further dosing adjustments.
Pending Results: No
[2025-03-23 11:54] VITALS: BP 106/77
[2025-03-23 12:01] VITALS: BP 112/66; BP 118/65; BP 94/63; PULSE 60; PULSE 62; PULSE 68
--- NOTE | 2025-03-23 12:01 | W.PN.CARDCBS ---
Addendum entered and electronically signed by Matthias Meléndez MD 03/23/25 12:24:
I saw and examined the patient.
The CIRCUIT BOARD ASSEMBLER or PA's note was reviewed and I agree with the note.
Comment: General: Well developed, well nourished in NAD.
Neck: Supple, no JVD, HJR, carotids +2 B/L, no bruits bilaterally.
Heart: Non displaced PMI, RRR, no murmurs, No S3, S4, no rubs.
Lungs: Scattered rhonchi
Extremities: No clubbing, cyanosis or edema bilaterally.
Neuro: Grossly nonfocal, awake, alert and oriented x3.
Stable cardiology status for discharge. Will decrease Toprol dose. Continue amiodarone. QT interval okay and remains in sinus rhythm. Check BMP and proBNP in 1 week. Discussed with primary service. Will change to Lasix 60 mg p.o. twice daily.
Original Note:
Today's Communication / Plan
-
check ortho VS
decrease toprol to 12.5mg HS
continue amiodarone 200mg daily
continue eliquis
po lasix 60mg BID
BMP/proBNP in 1 week
OP cardiac follow up arranged
for possible DC to home later today vs in AM
Impression / Plan
-
PCP: Dr. Carlita Kwon
Railroad Track Inspector: Dr. Matthias Meléndez
Impression:
Acute on chronic heart failure with preserved ejection
Nonischemic myocardial injury, likely related to above
Coronary artery disease
�LCx stenting 2010
�[employer] RCA with borderline 50-60% mid LAD stenosis previously treated medically with patent LCx stent by cath 06/2022
� Status post 3.0 mm [place] FAHAD to mid LAD 11/05/2022
Stress-induced cardiomyopathy with recovered EF 2023
Ischemic cardiomyopathy with recovered EF
Mitral regurgitation, moderate to severe
Paroxysmal atrial fibrillation, symptomatic
� [id number]: 5 (heart failure, hypertension, age, vascular disease, gender). Eliquis 2.5 mg twice daily for stroke risk reduction; reduced dosing as outpatient due to renal function and weight
� Rate controlled with metoprolol succinate to 12.5 mg twice daily
� Rhythm controlled amiodarone 200 mg daily
Rate related left bundle branch block
Anemia
Chronic leukocytosis, followed by hematology
Resection of bladder tumor, 2022
Bilateral lobectomies
- L lobectomy 06/2011, RUL 05/2026
Carotid stenosis
Bilateral cochlear implants, 2016
History of recurrent GI bleed
- 06/2022, 11/2023 (angiodysplastic lesions with stigmata of recent bleeding in duodenum by EGD)
Hypertension
Hyperlipidemia
Echo 02/27/21: LV: Normal size and function.� EF 50-55%.� Possible basal inferior HK.� RV: Normal, LA: Severely dilated, RA: Normal, MV: Moderate MR, AV: Sclerotic.� Trace AI.� TV: Mild TR with PAP 25 mmHg
Echo 07/07/22: LV: EF 35%.� Global HK with severe HK to akinesis of the basal and mid inferior and inferolateral segments.� Severe HK of the basal and mid anterior and anteroseptal.� Stage II diastolic dysfunction.� RV: Mildly dilated, LA: Severely
dilated, RA: Mildly dilated, MV: Mild to moderate eccentric MR, AV: Trace AI.� TV: Mild TR with PAP 4310/
GEORGINA 07/10/22: LV: Mildly reduced EF estimated 45-50%.� RV: Dilated, LA: Dilated, RA: Dilated, GEORGI: No thrombus, MV: Prolapse of A3-P3 segments with moderate eccentric MR.� ERO 0.2 cm� and regurgitant volume 32 by PISA method.� AV: Trace AI, TV: Mild
TR with PAP 32 mmHg
Echo 03/20/23: EF 45%, hypokinesis basal to mid anteroseptal, basal to mid inferior and inferolateral black, stage I diastolic dysfunction, mod MR
Echo 07/22/23: Ejection fraction 30 to 35%, global hypokinesis with anteroseptal, basal inferior, and basal septal akinesis., Moderate to severe MR, mild TR PA systolic of 53 mmHg
Echo 09/12/2023: EF visually 50 to 55%, 49% by Goldstein's, stage II diastolic dysfunction, severe LA dilation, moderate to severe eccentric MR, mild AI, moderate TR, PAP 58 mmHg
Echo 06/26/2024: EF 50-55%, stage II diastolic dysfunction, moderate posterior MR, trace AR, mild to moderate TR, estimated PAP 42 mmHg
Echo 11/17/2024: EF 50 to 55%, mild concentric LVH, stage II diastolic dysfunction, mild MAC, moderate posterior eccentric MR, trace AR, mild to moderate TR, PAP 42 mmHg, mildly dilated RA, no significant change compared to prior
ECHO 03/22/25: EF 55-60%, MR mild to mod, mild to mod TR, PAP 42mmHg
Left heart cath 06/2022: Chronic total occlusion of RCA with borderline 50 to 60% mid LAD stenosis previously treated medically with patent left circumflex stent
Plan:
-she presented with SOB and weight gain despite being compliant with lasix as well as dietary restrictions
-dry weight estimated to be between 118-121 pounds by review of prior records. she is 119 pounds today if accurate
-Cr stable at 1.2
-she reports today worsening of dizziness/'seeing stars' with tilting her head backward or leaning forward to tie her shoe
-she wears compression stockings in OP setting, which were initially helpful however has been worsening
-check ortho VS
-decrease toprol dose to 12.5mg HS (was on 12.5mg BID, however dose was not given last evening or this AM due to hypotension). continue amiodarone 200mg daily. in SR with PACs/PVCs on review of tele. EKG 03/23 with QTc stable appearing, by my
measurement ~500ms.
-continue SGLT2 inhibitor (on jardiance as OP)
-echo with results as above from 03/22, EF preserved
-trop peaked 0.039, no CP. suspected non ischemic myocardial injury. not on asa due to recurrent GI bleeding. continue lipitor, zetia
-OP cardiac follow up arranged.
-for possible DC to home later today vs AM
-d/w nursing, hospitalist
Progress Note - Railroad Track Inspector
Subjective
Date of Service: March 23, 2025
reports dizziness with tilting head back or bending down. No CP, SOB
Objective
Labs:
03/22/25 06:13
03/23/25 08:03
Labs
Hgb 11.3 g/dL (12.0-16.0) L 03/22/25 06:13
Hct 38.4 % (37.0-47.0) 03/22/25 06:13
Plt Count 306 10^3/uL (130-400) D 03/22/25 06:13
Sodium 135 mmol/L (135-145) 03/23/25 08:03
Potassium 3.8 mmol/L (3.5-5.1) 03/23/25 08:03
BUN 25 mg/dl (7-17) H 03/23/25 08:03
Creatinine 1.2 mg/dL (0.6-1.0) H 03/23/25 08:03
Glucose 91 mg/dl (70-99) 03/23/25 08:03
Vital Signs and I&O:
Vital Signs
Temp Pulse Resp BP Pulse Ox
99.4 F 60 20 106/77 96
03/23/25 11:54 03/23/25 11:54 03/23/25 11:54 03/23/25 11:54 03/23/25 11:54
Vital Signs
Temp Pulse Resp BP Pulse Ox
99.4 F 60 20 106/77 96
03/23/25 11:54 03/23/25 11:54 03/23/25 11:54 03/23/25 11:54 03/23/25 11:54
Intake & Output
03/21/25 03/22/25 03/23/25 03/24/25
07:59 07:59 07:59 07:59
Intake Total 1080 / 1080 600 / 600 1440 / 1440
Balance 1080 / 1080 600 / 600 1440 / 1440
Physical Exam
Physical Exam
GEN: No distress, awake, Ox3
HEENT: supple, anicteric, mmm
LUNGS: CTA, no wheezes/rales
CV: Reg, S1/S2, 1/6 syst LSB, no murmur
ABD: soft, BS+, NT/ND
EXT: No edema
NEURO: Gross non-focal
SKIN: No rash
--- NOTE | 2025-03-23 12:22 | CM ---
Patient will d/c home today. CM offered home care services, patient declined.
Patient will drive self home
IMM verbally reviewed, copy provided, copy on chart
Plan: Home, no needs
--- NOTE | 2025-03-23 12:51 | W.DS.TRANS ---
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
-
Discharge Instructions:
Sleep Apnea Risk Intermediate
Discharge Diagnosis/Procedures Acute on chronic heart failure with preserved
ejection fraction
Diet Low Sodium,Restrict fluids to 48 oz
Activity As tolerated
Driving Restrictions As prior to admission
Blood Work BMP in one week
Others Tests Abdomen MRI, to follow up suspected hepatic
hemangiomas seen on US; non-con chest CT to
follow up on CXR results
Specialty Instructions Weigh Daily
Instructions: *DCA Heart Failure Instructions
Stand-Alone Forms:
Changes to Home Medications: Yes
Discharge Medications:
DC Medications w/original date entered in [employer]
atorvastatin 80 mg tablet (Lipitor) 80 mg PO HS High cholesterol 04/07/22
ezetimibe 10 mg tablet (Zetia) 10 mg PO HS High cholesterol 04/07/22
fluoxetine 20 mg capsule (Prozac) 20 mg PO HS Mental Health 04/07/22
empagliflozin 10 mg tablet (Jardiance) 10 mg PO DAILY heart protection 02/18/23
amiodarone 200 mg tablet 200 mg PO DAILY Arrhythmia 09/21/23
vibegron 75 mg tablet (Gemtesa) 75 mg PO DAILY Urinary Issue 04/22/24
therapeutic multivitamin 1 tab PO DAILY Supplement 06/25/24
umeclidinium 62.5 mcg-vilanterol 25 mcg/actuation powdr for inhalation (Anoro Ellipta) 1 inh inhalation R DAILY Lung/Breathing Issues 06/25/24
apixaban 2.5 mg tablet (Eliquis) 2.5 mg PO BID Blood Clot Prevention/Tx 11/16/24
diphenhydramine 25 mg-acetaminophen 500 mg tablet (Acetaminophen PM) 1 tab PO HS Sleep 11/16/24
ipratropium 0.5 mg-albuterol 3 mg (2.5 mg base)/3 mL nebulization soln 3 ml inhalation R HS Lung/Breathing Issues 11/16/24
melatonin 10 mg tablet 10 mg PO HS Sleep 11/16/24
pantoprazole 40 mg tablet,delayed release (Protonix) 40 mg PO DAILY Gastrointestinal Issue 11/16/24
vitamin B complex 1 tab PO DAILY Supplement 11/16/24
ferrous sulfate 325 mg (65 mg iron) tablet (FeroSul) 325 mg PO DAILY #30 tabs 11/21/24
acetaminophen 325 mg tablet (Tylenol) 975 mg PO Q6H PRN pain 03/19/25
furosemide 20 mg tablet (Lasix) 60 mg (3 x 20 mg) PO BID #60 tabs 03/23/25
gabapentin 100 mg capsule 100 mg PO HS #30 caps 03/23/25
metoprolol succinate 25 mg tablet,extended release 24 hr (Toprol XL) 12.5 mg (1/2 x 25 mg) PO HS Heart Failure #0 tabs 03/23/25
Home Medication Changes
Your Lasix dosing is increased from 40mg to 60mg twice a day. You are prescribed 20mg tablets to take in addition to your 40mg tablet for 60mg total.
You are started on Gabapentin at night for sciatica type pain. You may increase dose to 200mg at night. Dr. Kwon can help guide further dosing adjustments.
Decrease your Metoprolol 12.5mg from twice a day to only in evenings.
Pending Results: No
--- NOTE | 2025-03-24 09:16 | W.HF.CON ---
Heart Failure
- LV Function
Left ventricular function study result: LV Ejection fraction >/= 50%
Ejection Fraction Percentage: 55-60
- ARNI
Patient already on ARNI: No
Heart Failure ARNI Not Indicated: LV Ejection Fraction >/= 40%
- ACEI/ARB
Patient already on ACEI/ARB: No
Heart Failure ACEI/ARB Not Indicated: LV Ejection Fraction > 40%
- Beta Nicolasa
Patient already on Evidence Based Beta Nicolasa: Yes
- Mineralocorticord Receptor Antagonist
Patient already on MRA: No
Heart Failure MRA Not Indicated: LV Ejection Fraction > 40%
- SGLT-2 Inhibitor
Patient already on SGLT-2 Inhibitor: Yes
- Afib Anticoagulation
Patient already on Anticoagulation for Afib: Yes
- NYHA CHF Classification
NYHA CHF Classification Level: Class III - Symptoms w/ min exertion, interferes w/ nml daily activity
- ACC/AHA Stage
ACC/AHA Stage: Stage C: Symptomatic Heart Failure
== END 2025-03-23 14:22 | disposition home or self-care (01) | DRG 291 ==
LOC: 4 WEST ACU 19:37
PROVIDERS: Clinical Nurse Specialist Family Health; Physician Assistant; ADMITTING PHYSICIAN Student in an Organized Health Care Education/Training Program; CONSULT PHYSICIAN Internal Medicine Cardiovascular Disease; EMERGENCY PHYSICIAN Student in an Organized Health Care Education/Training Program; FAMILY PHYSICIAN Family Medicine
DX: I13.0 Hypertensive heart and chronic kidney disease with heart failure and stage 1 through stage 4 chronic kidney disease, or unspecified chronic kidney disease (principal); I50.43 Acute on chronic combined systolic (congestive) and diastolic (congestive) heart failure; I51.81 Takotsubo syndrome; I5A Non-ischemic myocardial injury (non-traumatic); I27.20 Pulmonary hypertension, unspecified; K80.20 Calculus of gallbladder without cholecystitis without obstruction; Z95.5 Presence of coronary angioplasty implant and graft; N18.32 Chronic kidney disease, stage 3b; D72.829 Elevated white blood cell count, unspecified; I25.10 Atherosclerotic heart disease of native coronary artery without angina pectoris; K21.9 Gastro-esophageal reflux disease without esophagitis; Z85.118 Personal history of other malignant neoplasm of bronchus and lung; I25.5 Ischemic cardiomyopathy; I48.0 Paroxysmal atrial fibrillation; D75.839 Thrombocytosis, unspecified; M54.30 Sciatica, unspecified side; I34.0 Nonrheumatic mitral (valve) insufficiency; I07.1 Rheumatic tricuspid insufficiency; I44.7 Left bundle-branch block, unspecified; Z85.51 Personal history of malignant neoplasm of bladder; D50.9 Iron deficiency anemia, unspecified; D75.1 Secondary polycythemia; Z86.0100 Personal history of colon polyps, unspecified; F41.9 Anxiety disorder, unspecified; Z87.891 Personal history of nicotine dependence; Z79.01 Long term (current) use of anticoagulants; Z79.84 Long term (current) use of oral hypoglycemic drugs; E78.00 Pure hypercholesterolemia, unspecified; E87.6 Hypokalemia; G47.00 Insomnia, unspecified; H91.90 Unspecified hearing loss, unspecified ear; I44.0 Atrioventricular block, first degree; R32 Unspecified urinary incontinence; T50.2X5A Adverse effect of carbonic-anhydrase inhibitors, benzothiadiazides and other diuretics, initial encounter; Z79.899 Other long term (current) drug therapy; Z82.49 Family history of ischemic heart disease and other diseases of the circulatory system
CPT/HCPCS: 71046; 76700; 80053; 80061; 82248; 83735; 83880; 84439; 84443; 84484; 85025; 93005; 93308; 93321; 93325; 93922; 93925; 94640; 94760; 96374; 96375; 97110; 97116; 97162; 99285

== ENCOUNTER → 2025-05-04 12:26 | Outpatient (REF) | payer OTHER, SELFPAY | LOC: HWRAD 12:26 | PROVIDERS: FAMILY PHYSICIAN Family Medicine | DX: R91.1 Solitary pulmonary nodule (principal) | CPT/HCPCS: 71250 ==